=== PATIENT | female | born 1935 | race Caucasian/White ===

== ENCOUNTER → 2017-09-17 14:05 | Outpatient (CLI) | payer MEDICARE, SELFPAY ==
[2017-09-17 16:26] LABS: Albumin, Serum 3.6 g/dL (3.2-5.0); BUN 35 mg/dL (7-18); BUN/Creat Ratio 32.7 RATIO (10-20); Calcium,Total 9.1 mg/dL (8.5-10.1); Chloride 103 mmol/L (98-107); Creatinine, Serum 1.07 mg/dL (0.55-1.02); EST Glomerular Filtration Rate 52 mL/min (>60); Est Glom Filt Rate - Afr Amer 63 mL/min (>60); Glucose 89 mg/dL (74-106); Phosphorus 3.5 mg/dL (2.5-4.9); Potassium 4.3 mmol/L (3.5-5.1); Sodium Level 139 mmol/L (136-145)
[2017-09-17 16:52] LABS: Microalbumin,Random Urine 17.9 mg/L (NO RANGE EST.); Microalbumin:Creatinine Ratio 28.4 mg/g CRE (<30 mg/g CRE)
== END ==
PROVIDERS: Family Provider Family Medicine; PCP Family Medicine; Visit Provider Internal Medicine Nephrology
DX: E11.22 Type 2 diabetes mellitus with diabetic chronic kidney disease (principal); N18.3 Chronic kidney disease, stage 3 (moderate)
CPT/HCPCS: 36415; 80069; 82043; 82570

== ENCOUNTER → 2017-11-17 12:48 | Outpatient (CLI) | payer MEDICARE, SELFPAY | PROVIDERS: Family Provider Family Medicine; PCP Family Medicine; Visit Provider Family Medicine | DX: R42 Dizziness and giddiness (principal) | CPT/HCPCS: 93225; 93226 ==

== ENCOUNTER → 2018-01-09 15:48 | Outpatient (CLI) | payer MEDICARE, SELFPAY ==
[2018-01-09 17:57] LABS: Anion Gap 6 (5-15); BUN 32 mg/dL (7-18); BUN/Creat Ratio 30.2 RATIO (10-20); Calcium,Total 9.1 mg/dL (8.5-10.1); Chloride 106 mmol/L (98-107); Creatinine, Serum 1.06 mg/dL (0.55-1.02); EST Glomerular Filtration Rate 53 mL/min (>60); Est Glom Filt Rate - Afr Amer 64 mL/min (>60); Glucose 134 mg/dL (74-106); Potassium 4.2 mmol/L (3.5-5.1); Sodium Level 143 mmol/L (136-145)
== END ==
PROVIDERS: Family Provider Family Medicine; PCP Family Medicine; Referring Provider Internal Medicine Cardiovascular Disease; Visit Provider Internal Medicine Cardiovascular Disease
DX: I45.5 Other specified heart block (principal); N18.3 Chronic kidney disease, stage 3 (moderate); E03.9 Hypothyroidism, unspecified
CPT/HCPCS: 36415; 80048; 84443

== ENCOUNTER → 2018-01-27 09:38 | Outpatient (CLI) | payer MEDICARE, SELFPAY ==
--- NOTE | 2018-01-27 09:40 | ECHOD_ITS ---
Reason For Study: ARRYTHMIA Procedure This was a 2D Doppler, Color Flow transthoracic echocardiogram. Patient unable to lay on side or flat. Exam performed with patient in Fowlers position. The study was technically difficult. Exam performed in department. Left Ventricle Normal LV size. Mild concentric left ventricular hypertrophy. Left ventricular systolic function is normal. The estimated ejection fraction is 60 %. Transmitral diastolic flow velocities suggest moderate (stage 2) diastolic dysfunction (pseudonormal pattern). No regional wall motion abnormalities noted. Right Ventricle Normal RV size. Normal systolic function. Atria The left atrium is mildly enlarged. Normal right atrium. No doppler evidence for ASD. Mitral Valve There is moderate to severe mitral annular calcification. Extension of the mitral annular calcification onto the posterior mitral valve leaflet. The mitral valve chordae are thickened and/or calcified. The mitral papillary muscle appears thickened and/or calcified. Mild (1+) mitral valve insufficiency. Tricuspid Valve Normal tricuspid valve. Trivial tricuspid valve insufficiency. Right ventricular systolic pressure estimated to be 37 mmHg. Aortic Valve Trisinus/trileaflet aortic valve. Mild focal aortic valve calcification. Pulmonic Valve The pulmonic valve is not well visualized. Trivial pulmonic valve insufficiency. Great Vessels Normal sized aortic root. Calcified aortic root. Pericardium/Pleural No pericardial effusion. MMode/2D Measurements & Calculations LVIDd: 4.5 cm IVSd: 1.3 cm LVOT diam: 2.0 cm LVIDs: 3.3 cm LVPWd: 1.4 cm LVOT area: 3.2 cm2 FS: 28.2 % Ao root diam: 3.0 cm LAV(MOD-bp): 76.5 ml LVAd ap4: 28.4 cm2 LA dimension: 3.3 cm LAV(MOD-bp) Indexed: 40.4 ml/m2 EDV(MOD-sp4): 92.1 ml LAV(MOD-sp2): 57.1 ml EDV(sp4-el): 95.0 ml LAV(MOD-sp4): 82.7 ml LVAs ap4: 15.5 cm2 ESV(MOD-sp4): 33.9 ml ESV(sp4-el): 34.7 ml EF(MOD-sp4): 63.2 % EF(sp4-el): 63.5 % SV(MOD-sp4): 58.2 ml SV(sp4-el): 60.3 ml LA A4 area: 28.5 cm2 RA A4 area: 16.3 cm2 Time Measurements MV dec time: 0.38 sec Doppler Measurements & Calculations MV E max danyel: 150.5 cm/sec Lat Peak E' Danyel: 8.1 cm/sec Med Peak E' Danyel: 5.4 cm/sec MV A max danyel: 136.0 cm/sec E/E' lat: 18.5 E/E' med: 28.1 MV E/A: 1.1 MV V2 max: 134.8 cm/sec MV P1/2t max danyel: 150.2 cm/sec Ao V2 max: 161.5 cm/sec MV max P.3 mmHg MV P1/2t: 112.1 msec Ao max P.4 mmHg MV V2 mean: 96.3 cm/sec MV dec slope: 392.6 cm/sec2 DEAN(V,D): 2.0 cm2 MV mean P.0 mmHg MVA(P1/2t): 2.0 cm2 MV V2 VTI: 44.5 cm LV V1 max: 101.3 cm/sec PA V2 max: 81.3 cm/sec TR max danyel: 292.3 cm/sec LV V1 max P.1 mmHg TR max P.2 mmHg Interpretation Summary The study was technically difficult. Left ventricular systolic function is normal. The estimated ejection fraction is 60 %. Mild concentric left ventricular hypertrophy. The left atrium is mildly enlarged. There is moderate to severe mitral annular calcification. Extension of the mitral annular calcification onto the posterior mitral valve leaflet. The mitral valve chordae are thickened and/or calcified. The mitral papillary muscle appears thickened and/or calcified. Mild (1+) mitral valve insufficiency. Trivial tricuspid valve insufficiency. Mild focal aortic valve calcification. Trivial pulmonic valve insufficiency. Calcified aortic root. Right ventricular systolic pressure estimated to be 37 mmHg. Transmitral diastolic flow velocities suggest diastolic dysfunction (pseudonormal pattern). Ordering Physician: Shad Rae Referring Physician: RYLEE COTTO MD Performed By: Velma Kaba RDCS
== END ==
PROVIDERS: Family Provider Family Medicine; PCP Family Medicine; Referring Provider Internal Medicine Cardiovascular Disease; Visit Provider Internal Medicine Cardiovascular Disease
DX: I45.5 Other specified heart block (principal); I49.1 Atrial premature depolarization; I49.3 Ventricular premature depolarization
CPT/HCPCS: 93225; 93226; 93306

== ENCOUNTER → 2018-02-10 05:56 | Outpatient (CLI) | payer MEDICARE, SELFPAY | PROVIDERS: Family Provider Family Medicine; PCP Family Medicine; Referring Provider Internal Medicine Cardiovascular Disease | DX: I49.3 Ventricular premature depolarization (principal); I49.1 Atrial premature depolarization; I44.0 Atrioventricular block, first degree | CPT/HCPCS: A4216; J2785 ==

== ENCOUNTER → 2018-03-27 09:40 | Outpatient (CLI) | payer MEDICARE, SELFPAY ==
[2018-03-27 11:38] LABS: Albumin, Serum 3.3 g/dL (3.2-5.0); BUN 20 mg/dL (7-18); BUN/Creat Ratio 22.3 RATIO (10-20); Calcium,Total 9.1 mg/dL (8.5-10.1); Chloride 107 mmol/L (98-107); EST Glomerular Filtration Rate 64 mL/min (>60); Est Glom Filt Rate - Afr Amer 77 mL/min (>60); Glucose 153 mg/dL (74-106); Potassium 4.1 mmol/L (3.5-5.1); Sodium Level 144 mmol/L (136-145)
== END ==
PROVIDERS: Family Provider Family Medicine; PCP Family Medicine; Referring Provider Internal Medicine Nephrology; Visit Provider Internal Medicine Nephrology
DX: N17.0 Acute kidney failure with tubular necrosis (principal)
CPT/HCPCS: 36415; 80069

== ENCOUNTER → 2018-05-11 10:59 | Outpatient (CLI) | payer MEDICARE, SELFPAY | PROVIDERS: Family Provider Family Medicine; PCP Family Medicine; Referring Provider Internal Medicine Cardiovascular Disease; Visit Provider Internal Medicine Cardiovascular Disease | DX: I49.3 Ventricular premature depolarization (principal); I49.1 Atrial premature depolarization; I45.5 Other specified heart block | CPT/HCPCS: 93225; 93226 ==

== ENCOUNTER → 2018-11-07 | Outpatient (CLI) | payer MEDICARE, SELFPAY ==
[2018-05-25 14:59] VITALS: BMI 36.6
[2018-11-07 10:57] LABS: Hematocrit 33.1 % (37-47); Hemoglobin 11.1 g/dL (12.0-15.0); Mean Corp Hgb Conc 33.5 g/dL (32-36); Mean Corpuscular Volume 92.5 fL (81-99); Mean Platelet Vol. 10.1 fl (6.2-12.0); Platelet Count 227 K/mm3 (150-450); RBC Distribution Width CV 12.8 % (11.6-14.6); RBC Distribution Width SD 43.8 fl (35.1-43.9); Red Blood Count 3.58 M/mm3 (4.2-5.4); White Blood Count 6.1 K/mm3 (4.4-11.0)
[2018-11-07 11:06] LABS: Protein, Urine (Random) 20.8 mg/dL (<11.9); Protein:Creat Ratio 596 mg/g CRE (0-200)
[2018-11-07 11:24] LABS: Albumin, Serum 3.5 g/dL (3.2-5.0); BUN 22 mg/dL (7-18); BUN/Creat Ratio 23.4 RATIO (10-20); Chloride 104 mmol/L (98-107); Creatinine, Serum 0.94 mg/dL (0.55-1.02); EST Glomerular Filtration Rate 60 mL/min (>60); Est Glom Filt Rate - Afr Amer 73 mL/min (>60); Glucose 181 mg/dL (74-106); Phosphorus 3.6 mg/dL (2.5-4.9); Potassium 4.3 mmol/L (3.5-5.1); Sodium Level 142 mmol/L (136-145)
== END | disposition home or self-care (01) ==
LOC: LAB 09:51
PROVIDERS: Family Provider Family Medicine; PCP Family Medicine; Referring Provider Internal Medicine Nephrology; Visit Provider Internal Medicine Nephrology
DX: E11.22 Type 2 diabetes mellitus with diabetic chronic kidney disease (principal); N18.3 Chronic kidney disease, stage 3 (moderate)
CPT/HCPCS: 36415; 80069; 82570; 84156; 85027

== ENCOUNTER 2018-12-11 11:36 | Emergency (ER) | payer MEDICARE, SELFPAY ==
[2018-12-01 08:59] VITALS: BMI 35.6
[2018-12-11 11:41] VITALS: BP 153/61; PULSE 73; RESP 22; TEMP 36.4; O2SAT 100; BMI 36.8
--- NOTE | 2018-12-11 11:59 | RAD_ITS ---
STUDY: X-RAY CHEST REASON FOR EXAM: Female, 83 years old. Shortness of breath. TECHNIQUE: Single AP portable view of the chest. COMPARISON: Comparison is made with prior study dated October 17, 2016. FINDINGS: EKG electrodes are seen. The lungs are clear and expanded. There is no demonstrated pleural abnormality. There is mild cardiac enlargement. Normal mediastinum and vijaya. Normal visualized pulmonary arteries. There is atherosclerotic calcification of the aortic arch with tortuosity. There are diffuse degenerative changes of the visualized thoracic spine. There is degenerative osteoarthritis of the bilateral shoulders. There is no demonstrated abnormality of the visualized soft tissue structures of the upper abdomen. RAD/Chest 1 View (Portable) IMPRESSION: Mild cardiomegaly. Electronically Signed: Timbo Chapman, at 12:23 EDT , Service support ,
--- NOTE | 2018-12-11 11:59 | EKG12_ITS ---
Test Reason : SOB Blood Pressure : / mmHG Vent. Rate : 072 BPM Atrial Rate : 072 BPM P-R Int : 194 ms QRS Dur : 104 ms QT Int : 436 ms P-R-T Axes : 087 -45 053 degrees QTc Int : 477 ms Normal sinus rhythm Left anterior fascicular block Voltage criteria for left ventricular hypertrophy Abnormal ECG Confirmed by JOSEPH SCHMITT ([id number]), development editor NASIR NUGENT ([id number]) on 12/14/2018 2:28:16 PM Referred By: ELIZABETH Confirmed By:JOSEPH SCHMITT
[2018-12-11 12:21] VITALS: RESP 16; O2SAT 100
--- NOTE | 2018-12-11 12:27 | RAD_ITS ---
STUDY: X-RAY CHEST REASON FOR EXAM: Female, 83 years old. Shortness of breath. TECHNIQUE: Single AP portable view of the chest. COMPARISON: Comparison is made with prior examination dated December 11, 2018. FINDINGS: EKG electrodes are seen. The lungs are clear and expanded. There is no demonstrated pleural abnormality. There is borderline cardiomegaly. Normal mediastinum and vijaya. Normal visualized pulmonary arteries. There is atherosclerotic calcification of the aortic arch with tortuosity. There are diffuse degenerative changes of the visualized thoracic spine. There is degenerative osteoarthritis of the bilateral shoulders. Calcific tendinitis of the left shoulder. There is no demonstrated abnormality of the visualized soft tissue structures of the upper abdomen. RAD/Chest 1 View (Portable) IMPRESSION: Borderline cardiomegaly. No acute abnormality is seen. Electronically Signed: Timbo Chapman, at 13:22 EDT , Service support ,
[2018-12-11 13:08] LABS: Absolute Lymphocyte Count 0.81 X10^3/uL (0.83-4.51); Absolute Neutrophil Count 4.8 X10^3/uL (2.0-7.7); Basophil# 0.05 X10^3/uL; Basophil% 0.8 % (0-1); Eosinophil# 0.06 X10^3/uL; Hematocrit 31.9 % (37-47); Hemoglobin 10.4 g/dL (12.0-15.0); Lymphocyte # 0.81 X10^3/ul (4.0); Lymphocyte % 13.2 % (19-41); Mean Corp Hgb Conc 32.6 g/dL (32-36); Mean Corpuscular Hgb 30.3 pg (27.0-32.0); Mean Platelet Vol. 10.5 fl (6.2-12.0); Monocyte# 0.41 X10^3/uL; Monocyte% 6.7 % (0-10); NRBC Flagged by Analyzer 0 % (0-5); Neutrophil # 4.77 X10^3/uL (2.7-7.7); Platelet Count 240 K/mm3 (150-450); RBC Distribution Width CV 13.1 % (11.6-14.6); RBC Distribution Width SD 44.5 fl (35.1-43.9); Red Blood Count 3.43 M/mm3 (4.2-5.4); White Blood Count 6.1 K/mm3 (4.4-11.0)
[2018-12-11 13:31] VITALS: O2SAT 98
[2018-12-11 13:33] LABS: Anion Gap 4 (5-15); BUN 18 mg/dL (7-18); BUN/Creat Ratio 13.6 RATIO (10-20); Calcium,Total 9.1 mg/dL (8.5-10.1); Chloride 101 mmol/L (98-107); Creatinine, Serum 1.32 mg/dL (0.55-1.02); EST Glomerular Filtration Rate 41 mL/min (>60); Est Glom Filt Rate - Afr Amer 49 mL/min (>60); Estimated Creatinine Clearance 25.09 ml/min; Glucose 240 mg/dL (74-106); Potassium 4.3 mmol/L (3.5-5.1); Sodium Level 137 mmol/L (136-145)
--- NOTE | 2018-12-11 13:56 | ED.DCSUM_ITS ---
- ER Visit Summary Date of Service: 12/11/18 Chief Complaint: [Shortness of breath] History of Present Illness: The patient is a 83 F [resents to the emergency department complaint of shortness of breath that started around 11 AM. Patient states that she was sitting when she became very nauseated. Patient states that her family member called her and she was having a hard time breathing. She denies any chest pain. Denies any cough. Patient did have episodes of diarrhea yesterday and dry heaves. She denies any abdominal pain. She denies any fevers. She denies urinary symptoms. Patient states she feels improved on arrival to the emergency department. Patient does have a history of CHF, diabet es, hypertension, hypothyroidism, and chronic kidney disease.] Physical Examination: [HEENT-PERRLA, EOMI. Cranial nerves II through XII grossly intact. TMs clear. Mucous membranes moist. No adenopathy. Cardiovascular-regular rate and rhythm without murmur or ectopy Lungs-clear to auscultation, chest wall stable without crepitus or subcu emphysema Abdomen-normoactive bowel sounds, soft, nontender, no rebound or rigidity, no peritoneal signs. Extremities-intact ?4, normal range of motion, normal pulses, atraumatic] Test Results: [EKG obtained arrival showed a sinus rhythm with a ventricular rate of 72 bpm with some LVH. CBC with differential showed a white count of 6.1, hemoglobin 10, hematocrit 32, platelets 240. Chemistries unremarkable. Glucose was 240. Troponin is less than 0.015. Chest x-ray showed some mild cardiomegaly otherwise nothing acute.] Emergency Department Course and Treatment: [Receive Zofran 4 mill grams IV.] Treatment Plan: [Patient will be given a prescription for Zofran. I suspect patient likely has a viral type syndrome. Patient's dyspnea is mostly resolved at this point.] Disposition: Discharged home stable condition [] Impression: [Dyspnea-etiology uncertain Viral syndrome] This note was generated with [employer] dictation software. It may contain incorrect words, spelling, and punctuation that were not noted in review of the chart prior to signing ED Disposition - Plan for ED Patient: Referrals: Garret Henson MD [Primary Care Provider] -
--- NOTE | 2018-12-11 13:58 | ED.DEP ---
ED Disposition - Plan for ED Patient: Instructions: ED Dyspnea, GASTROENTERITIS, Viral (5y-Adult) Prescriptions: Ondansetron [Zofran Odt] 4 mg PO Q8H PRN PRN #10 tab PRN Reason: Nausea Prescription Printed Referrals: Garret Henson MD [Primary Care Provider] - 3-5 Days
[2018-12-11] MEDS: Ondansetron 4 MG/2 ML Vial IV (14:28)
[2018-12-11 14:31] VITALS: BP 159/57; PULSE 76; RESP 16; O2SAT 99
== END 2018-12-11 14:40 | disposition home or self-care (01) ==
PROVIDERS: Emergency Provider Emergency Medicine; Family Provider Family Medicine; PCP Family Medicine
DX: B34.9 Viral infection, unspecified (principal); R06.00 Dyspnea, unspecified; R11.0 Nausea; R19.7 Diarrhea, unspecified; E11.22 Type 2 diabetes mellitus with diabetic chronic kidney disease; I13.0 Hypertensive heart and chronic kidney disease with heart failure and stage 1 through stage 4 chronic kidney disease, or unspecified chronic kidney disease; N18.9 Chronic kidney disease, unspecified; I50.9 Heart failure, unspecified; E03.9 Hypothyroidism, unspecified; Z79.82 Long term (current) use of aspirin; Z79.4 Long term (current) use of insulin; Z79.899 Other long term (current) drug therapy
CPT/HCPCS: 71045; 80048; 84484; 85025; 93005; 94760; 96374; 99285; A4216; J2405

== ENCOUNTER 2019-01-04 16:11 | Emergency (ER) | payer MEDICARE, SELFPAY ==
[2019-01-04] VITALS (9 sets, daily range): BP systolic 134–190; BP diastolic 76–121; PULSE 70–89; RESP 16–22; TEMP 36.1; O2SAT 94–99; BMI 35.6
[2019-01-04] MEDS: Metoclopramide 10 MG/2 ML Vial 2.5 MG IV (17:34)
[2019-01-04] MEDS: Propofol 200 MG/20 ML Vial 40 MG IV BOLUS (17:42)
[2019-01-04] MEDS: Propofol 200 MG/20 ML Vial 30 MG IV BOLUS (17:44)
--- NOTE | 2019-01-04 17:51 | RAD_ITS ---
STUDY: X-RAY - RIGHT SHOULDER REASON FOR EXAM: Female, 83 years old. Deformity TECHNIQUE: 1 view(s) of the shoulder. COMPARISON: X-ray chest December 11, 2018 FINDINGS: There is anterior dislocation of the shoulder. No displaced fractures are present. Moderate degenerative changes are present at the acromioclavicular joint. RAD/Shoulder One View IMPRESSION: Anterior dislocation of the humeral head. No displaced fracture. Electronically Signed: Abdoulaye Sandoval, at 18:22 EDT Tel , Service support ,
--- NOTE | 2019-01-04 18:00 | RAD_ITS ---
STUDY: X-RAY - RIGHT SHOULDER REASON FOR EXAM: Female, 83 years old. Post reduction attempt TECHNIQUE: 2 view(s) of the shoulder. COMPARISON: X-ray right shoulder earlier the same day. X-ray chest December 11, 2018. FINDINGS: Position of the humeral head appears improved relative to the glenoid although subacromial space appears increased, although similar interim comparison to chest x-ray from December 11. There is no displaced fracture. Soft tissues are within normal limits. RAD/Shoulder min 2 Views IMPRESSION: Improved position of the humeral head relative to the glenoid, although subacromial space appears increased although similar to comparison chest x-ray from December 11. Consider possible joint laxity. Electronically Signed: Abdoulaye Sandoval, at 18:21 EDT Tel , Service support ,
--- NOTE | 2019-01-04 18:26 | ED.DCSUM_ITS ---
- ER Visit Summary Date of Service: 01/04/19 Chief Complaint: Shoulder dislocation History of Present Illness: The patient is a 83 F who presents for a shoulder dislocation. She had outside films that showed an anterior dislocation without fracture. The patient says she fell about a week ago. She has chronic right shoulder pain, so she thought that she just exacerbated her chronic pain, but her pain was getting worse. X-rays were done today. She denies any neurologic symptoms. Denies any other injuries or complaints. Physical Examination: Deformity to right shoulder and tender to palpation. Neurovascularly intact. Otherwise exam unremarkable. Test Results: See below Emergency Department Course and Treatment: I reviewed the patient's outside results. Discussed the patient with Dr. Hartmann. He advised attempting closed reduction. Patient gave consent for sedation and closed reduction. The first attempt was unsuccessful. The second attempt was successful based on confirmatory x-rays. Patient was placed in a sling. She will follow-up as an outpatient with Dr. Hartmann. Treatment Plan: As above Disposition: Discharge Impression: 1. Right shoulder dislocation This note was generated with [employer] dictation software. It may contain incorrect words, spelling, and punctuation that were not noted in review of the chart prior to signing ED Disposition - Plan for ED Patient: Referrals: Garret Henson MD [Primary Care Provider] -
--- NOTE | 2019-01-04 18:30 | DCINST.ED_ITS ---
ED Disposition - Plan for ED Patient: Instructions: DISLOCATION: SHOULDER (Reduced) Prescriptions: Hydrocodone Bitart/Apap 5-325 [[place] 5MG-325MG] 1 tab PO Q6H PRN PRN 3 Days #10 tab PRN Reason: Pain Prescription Printed Referrals: Chris Hartmann MD [STAFF PHYSICIAN] -
== END 2019-01-04 18:45 | disposition home or self-care (01) ==
LOC: ED 18:41
PROVIDERS: Emergency Provider Emergency Medicine; Family Provider Family Medicine; PCP Family Medicine
DX: S43.014A Anterior dislocation of right humerus, initial encounter (principal); M25.511 Pain in right shoulder; G89.29 Other chronic pain; W19.XXXA Unspecified fall, initial encounter; Y93.9 Activity, unspecified; Y92.9 Unspecified place or not applicable; E11.22 Type 2 diabetes mellitus with diabetic chronic kidney disease; I13.0 Hypertensive heart and chronic kidney disease with heart failure and stage 1 through stage 4 chronic kidney disease, or unspecified chronic kidney disease; N18.9 Chronic kidney disease, unspecified; I50.9 Heart failure, unspecified; E03.9 Hypothyroidism, unspecified; Z79.82 Long term (current) use of aspirin; Z79.4 Long term (current) use of insulin; Z79.899 Other long term (current) drug therapy
CPT/HCPCS: 23650; 73020; 73030; 96374; 99156; 99157; 99285; J7030; A4216

== ENCOUNTER → 2019-05-05 14:23 | Outpatient (CLI) | payer MEDICARE, SELFPAY ==
[2019-01-04 16:13] VITALS: BMI 35.6
== END ==
LOC: LAB.FUTURE 14:26 → LAB 14:37
PROVIDERS: PCP Family Medicine; Referring Provider Internal Medicine Nephrology; Visit Provider Internal Medicine Nephrology
DX: R30.9 Painful micturition, unspecified (principal)
CPT/HCPCS: 87086; 87088

== ENCOUNTER → 2019-11-10 08:10 | Outpatient (CLI) | payer MEDICARE, SELFPAY ==
[2019-05-26 15:09] VITALS: BMI 35.6
[2019-11-10 09:37] LABS: Protein, Urine (Random) 10.7 mg/dL (<11.9); Protein:Creat Ratio 196 mg/g CRE (0-200)
[2019-11-10 09:51] LABS: Albumin, Serum 3.7 g/dL (3.2-5.0); BUN 33 mg/dL (7-18); BUN/Creat Ratio 26.8 RATIO (10-20); Calcium,Total 9.2 mg/dL (8.5-10.1); Chloride 102 mmol/L (98-107); Creatinine, Serum 1.23 mg/dL (0.55-1.02); EST Glomerular Filtration Rate 44 mL/min (>60); Est Glom Filt Rate - Afr Amer 53 mL/min (>60); Glucose 157 mg/dL (74-106); Phosphorus 3.4 mg/dL (2.5-4.9); Potassium 4.4 mmol/L (3.5-5.1); Sodium Level 137 mmol/L (136-145)
== END ==
PROVIDERS: PCP Family Medicine; Referring Provider Internal Medicine Nephrology; Visit Provider Internal Medicine Nephrology
DX: E11.22 Type 2 diabetes mellitus with diabetic chronic kidney disease (principal); N18.3 Chronic kidney disease, stage 3 (moderate)
CPT/HCPCS: 36415; 80069; 82570; 84156

== ENCOUNTER 2019-11-30 12:45 | Emergency (ER) | payer MEDICARE, SELFPAY ==
[2019-11-11 13:26] VITALS: BMI 35.6
[2019-11-30 12:46] VITALS: BP 163/80; PULSE 79; RESP 18; TEMP 36.5; O2SAT 99; BMI 34.4
--- NOTE | 2019-11-30 13:09 | VDLE_ITS ---
Reason For Study: pain Procedure LEFT Exam performed portable in ED. GSV is normal. The exam was abbreviated due to the COVID 19 CFV is compressible, spontaneous, phasic, protocol. competent, and demonstrates normal The exam was diagnostic. augmentation. A preliminary report was called and/or faxed FV is compressible, spontaneous, phasic, to Dr. León. competent and demonstrates normal augmentation. POP V is compressible, spontaneous, phasic, competent and demonstrates normal augmentation. T/P Trunk is compressible. PTV is compressible. LT PerV is compressible. Interpretation Summary There is no evidence of left lower extremity deep vein thrombosis. Left great saphenous vein appears patent and compressible segmentally. Abbreviated Covid-19 protocol Ordering Physician: George León Performed By: Uziel Miller RVT
--- NOTE | 2019-11-30 13:09 | ED.VIS.GEN ---
History of Present Illness Chief Complaint: Edema Narrative: 84-year-old female presenting with left lateral calf pain. She states this started on Friday. There is no acute injury that she knows of. She denies history of DVT/PE. She states that she put Biofreeze on it and the pain got better. Her home health care nurse thought it looked a little bit red and to the area. The redness has resolved. Patient has no paresthesias. No bony tenderness. No systemic signs such as fever, chills, nausea, vomiting. - Past Medical History (1) First degree AV block Status: Chronic (2) Premature supraventricular beats Status: Chronic (3) Chronic renal disease, stage 3, moderately decreased glomerular filtration rate (GFR) between 30-59 mL/min/1.73 square meter Status: Chronic (4) Diastolic CHF, chronic Status: Chronic (5) Essential hypertension Status: Chronic (6) Hypothyroidism Status: Chronic Past Medical History - Allergies and Home Meds Allergies/Adverse Reactions: Allergies shellfish derived Allergy (Severe, Verified 11/30/19 12:50) Anaphylaxis hydrochlorothiazide [From Prinzide] Allergy (Verified 11/30/19 12:50) Unknown Iodinated Contrast Media [Iodinated Contrast Media - IV Dye] Allergy (Verified 11/30/19 12:50) Anaphylaxis lisinopril [From Prinzide] Allergy (Verified 11/30/19 12:50) Unknown neomycin [Neomycin] Allergy (Verified 11/30/19 12:50) Unknown Primary Care Physician: Garret Henson MD [Primary Care Provider] - Past Medical History: - - Reviewed in problem list Surgical History: appendectomy, cholecystectomy Lives: With Family Smoking Status: Never smoker Alcohol: None Drugs: None - Family History Maternal Family History: Family History (Last Reviewed 11/11/19 @ 14:55 by SONJA Hagen) Father CVA (cerebral vascular accident) Myocardial infarction Heart disease Mother Cancer Brother Pacemaker Family History: Reports: - Review of Systems General: Denies: Chills, Fever, Sweats Eyes: Denies: Visual changes - bilaterally, Diplopia ENT: Denies: Rhinorrhea, Sore throat Cardiovascular: Denies: Chest pain, Palpitations Respiratory: Denies: Dyspnea, Cough, Dyspnea on exertion Gastrointestinal: Reports: Abdominal pain Genitourinary: Denies: Dysuria, Hematuria, Frequency Musculoskeletal: Reports: - - Left lateral calf pain Skin: Reports: - - Resolved area of redness on the left lower extremity Neurological: Denies: Headache, Weakness Physical Exam Vital Signs/Narrative: Vital Signs Temp Pulse Resp BP Pulse Ox 11/30/19 12:46 97.7 F L 79 18 163/80 H 99 Inital Vital Signs reviewed: Yes General: Well nourished, No Acute Distress Head: Normocephalic, Atraumatic Eyes: Perrl ENT: Moist mucous membranes, No rhinorrhea Cardiovascular: Regular rate, Regular rhythm Respiratory: No distress, CTA bilaterally. Negative for: Wheezing, Diminished, Decreased Air Movement Extremities: - - Tenderness to palpation over the left lateral calf. There is no erythema, ecchymosis, abrasions. There is no bony tenderness on the tibia or fibula. 2+ pedal pulses. There is edema bilaterally on the lower extremities. Skin: Normal color, No rash Neurological: Alert, Oriented x3 Psychological: Normal affect Diagnostic/Tx/Re-eval - Medical Decision Making Patient presents with concern for DVT given her pain in her lower calf as well as edema. She does have a history of heart failure but is not having any shortness of breath, chest pain, fever, cough. I did do a DVT study of her left lower extremity which is negative for DVT. I counseled her and her daughter that she should stay in the compression stockings and follow-up with her PCP to ensure resolution. She was amenable to this plan she stable discharge at this time. Impression: 1. Left calf strain ED Disposition - Plan for ED Patient: Disposition: Home or Assisted Living Instructions: ED Peripheral Edema, Unilateral Referrals: Garret Henson MD [Primary Care Provider] -
== END 2019-11-30 14:11 | disposition home or self-care (01) ==
LOC: ED 13:49
PROVIDERS: Emergency Provider Student in an Organized Health Care Education/Training Program; PCP Family Medicine
DX: S86.112A Strain of other muscle(s) and tendon(s) of posterior muscle group at lower leg level, left leg, initial encounter (principal); X58.XXXA Exposure to other specified factors, initial encounter; Y93.9 Activity, unspecified; Y92.9 Unspecified place or not applicable; I13.0 Hypertensive heart and chronic kidney disease with heart failure and stage 1 through stage 4 chronic kidney disease, or unspecified chronic kidney disease; N18.3 Chronic kidney disease, stage 3 (moderate); I50.32 Chronic diastolic (congestive) heart failure; E03.9 Hypothyroidism, unspecified; I44.0 Atrioventricular block, first degree; Z79.82 Long term (current) use of aspirin; Z79.899 Other long term (current) drug therapy; R60.0 Localized edema
CPT/HCPCS: 93971; 99282

== ENCOUNTER → 2019-12-20 09:06 | Outpatient (CLI) | payer MEDICARE, SELFPAY ==
[2019-11-30 12:46] VITALS: BMI 34.4
[2019-12-20 10:52] LABS: Protein, Urine (Random) 13.1 mg/dL (<11.9); Protein:Creat Ratio 370 mg/g CRE (0-200)
[2019-12-20 10:53] LABS: Albumin, Serum 3.7 g/dL (3.2-5.0); BUN 22 mg/dL (7-18); Calcium,Total 9.4 mg/dL (8.5-10.1); Chloride 101 mmol/L (98-107); EST Glomerular Filtration Rate 50 mL/min (>60); Est Glom Filt Rate - Afr Amer 61 mL/min (>60); Glucose 156 mg/dL (74-106); Phosphorus 3.6 mg/dL (2.5-4.9); Potassium 4.1 mmol/L (3.5-5.1); Sodium Level 137 mmol/L (136-145)
== END ==
PROVIDERS: PCP Family Medicine; Referring Provider Internal Medicine Nephrology; Visit Provider Internal Medicine Nephrology
DX: E11.22 Type 2 diabetes mellitus with diabetic chronic kidney disease (principal); N18.3 Chronic kidney disease, stage 3 (moderate); N17.0 Acute kidney failure with tubular necrosis
CPT/HCPCS: 36415; 80069; 82570; 84156

== ENCOUNTER 2019-12-25 09:24 | Emergency (ER) | payer MEDICARE, SELFPAY ==
[2019-12-25 09:26] VITALS: BP 180/86; PULSE 88; RESP 199; TEMP 37; O2SAT 91; BMI 36.6
--- NOTE | 2019-12-25 09:36 | ED.DCSUM_ITS ---
History of Present Illness Chief Complaint: Nausea/Vomiting Informant: Patient Narrative: 84-year-old female presents with her daughter for evaluation of nausea/vomiting. Patient states that she has been having trouble with her bowels. She vomited once yesterday and then again this morning. She did take nausea medicine which did help a little bit. She is not had a fever or cough. In route after vomiting she did states she had some pressure in her chest. This is since resolved. - Past Medical History (1) Chronic renal disease, stage 3, moderately decreased glomerular filtration rate (GFR) between 30-59 mL/min/1.73 square meter Status: Chronic (2) Diastolic CHF, chronic Status: Chronic (3) Essential hypertension Status: Chronic (4) First degree AV block Status: Chronic (5) Hypothyroidism Status: Chronic Past Medical History - Allergies and Home Meds Allergies/Adverse Reactions: Allergies shellfish derived Allergy (Severe, Verified 12/25/19 09:26) Anaphylaxis hydrochlorothiazide [From Prinzide] Allergy (Verified 12/25/19 09:26) Unknown Iodinated Contrast Media [Iodinated Contrast Media - IV Dye] Allergy (Verified 12/25/19 09:26) Anaphylaxis lisinopril [From Prinzide] Allergy (Verified 12/25/19 09:26) Unknown neomycin [Neomycin] Allergy (Verified 12/25/19 09:26) Unknown Primary Care Physician: Garret Henson MD [Primary Care Provider] - Past Medical History: - - Reviewed and problem list Surgical History: appendectomy, cholecystectomy Lives: With Family Smoking Status: Never smoker Alcohol: None Drugs: None - Family History Maternal Family History: Family History (Last Reviewed 11/11/19 @ 14:55 by Candida CASILLAS, [place]) Father CVA (cerebral vascular accident) Myocardial infarction Heart disease Mother Cancer Brother Pacemaker Family History: Reports: - Review of Systems General: Denies: Chills, Fever, Sweats Eyes: Denies: Visual changes - bilaterally, Diplopia ENT: Denies: Rhinorrhea, Sore throat Cardiovascular: Reports: Chest pain Respiratory: Denies: Dyspnea, Cough, Dyspnea on exertion Gastrointestinal: Reports: Abdominal pain, Nausea, Vomiting. Denies: Diarrhea, Constipation Genitourinary: Denies: Dysuria, Hematuria Musculoskeletal: Denies: Myalgias, Arthralgias Skin: Denies: Rash, Abscess Neurological: Denies: Headache, Weakness Physical Exam Vital Signs/Narrative: Vital Signs Temp Pulse Resp BP Pulse Ox 12/25/19 09:26 98.6 F 88 199 H 180/86 H 91 Inital Vital Signs reviewed: Yes General: Obese, No Acute Distress Head: Normocephalic, Atraumatic Eyes: Perrl, EOMI ENT: Moist mucous membranes, No rhinorrhea Cardiovascular: Regular rate, Regular rhythm Respiratory: No distress, CTA bilaterally Abdomen: Soft, Tender - Generalized tenderness to palpation. There appears to be a palpable hernia in the right lower quadrant. Extremities: Nontender, No edema Skin: Normal color, No rash Neurological: Alert, Oriented x3 Psychological: Normal affect, Normal Mood Diagnostic/Tx/Re-eval Clinical Impression(s) from Imaging Studies Chest X-Ray 12/25/19 09:46 IMPRESSION: Poor inspiration with some bibasilar atelectasis. Electronically Signed: Charles Carmona MD at 10:19 EDT Tel , Service support , Abdomen/Pelvis CT 12/25/19 10:32 IMPRESSION: No acute abnormality. Suspect constipation. Electronically Signed: Charles Carmona MD at 12:37 EDT Tel , Service support , Laboratory Data 12/25/19 12/25/19 12/25/19 09:35 09:35 11:55 WBC 6.2 RBC 3.66 L Hgb 11.4 L Hct 35.3 L MCV 96.4 MCH 31.1 MCHC 32.3 RDW Std Deviation 45.8 H RDW Coeff of Skye 12.9 Plt Count 245 MPV 9.7 Immature Gran % (Auto) 0.300 Neut % (Auto) 71.2 H Lymph % (Auto) 16.1 L [place] % (Auto) 6.9 Eos % (Auto) 5.0 Baso % (Auto) 0.5 Absolute Neuts (auto) 4.4 Absolute Lymphs (auto) 1.00 Nucleated RBC % 0 Sodium 138 Potassium 4.4 Chloride 102 Carbon Dioxide 32.0 Anion Gap 4 L BUN 20 H Creatinine 1.06 H Estim Creat Clear Calc 30.69 Est GFR (MDRD) Af Amer 63 Est GFR (MDRD) Non-Af 52 L BUN/Creatinine Ratio 18.9 Glucose 176 H Calcium 9.1 Total Bilirubin 0.60 Direct Bilirubin 0.14 AST 24 ALT 21 Alkaline Phosphatase 114 Troponin I < 0.015 Total Protein 7.3 Albumin 3.8 Globulin 3.5 Albumin/Globulin Ratio 1.1 Urine Color Yellow Urine Clarity Clear Urine pH 7.0 Ur Specific [place] 1.005 Urine Protein Negative Urine Glucose (UA) Normal Urine Ketones Negative Urine Occult Blood Negative Urine Nitrite Negative Urine Bilirubin Negative Urine Urobilinogen Normal Ur Leukocyte Esterase 100 H Urine RBC 0 SEEN Urine WBC 0-5 SEEN Ur Squamous Epith Cells 0-5 SEEN Urine Bacteria RARE Urine Mucus 0 SEEN - Rhythm Strip Rhythm Strip: Sinus Rhythm Rate: 85 - Medical Decision Making 84-year-old female presenting with nausea and vomiting for the last 2 days. Prior to arrival she had some pressure in her chest however this was due to her vomiting. On arrival she was given Zofran. Her vital signs are stable and she is afebrile. Patient's chest x-ray is negative. Blood work is fairly unremarkable. Urinalysis appears to be consistent with UTI. I spoke with the patient's daughter who stated that she had been urinating a lot and that usually a sign she is getting a urinary tract infection. During this in addition to the nausea and vomiting I will treat the UTI. It is sent for culture. Patient is given first dose of Keflex in the ED. She is given a prescription for Zofran and Keflex for home. Impression: 1. Nausea/vomiting 2. UTI ED Disposition - Plan for ED Patient: Disposition: Home or Assisted Living Instructions: Understanding Urinary Tract Infections (UTIs), ED Nausea Vomiting Adult Prescriptions: Cephalexin [Keflex] 500 mg PO Q12 #14 cap Transmission Status: Received by [facility] Cephalexin [Keflex] 500 mg PO Q12 #14 cap Transmission Status: Received by [facility] Ondansetron [Zofran Odt] 4 mg PO Q8H PRN PRN #14 tab PRN Reason: Nausea Transmission Status: Received by [facility] Ondansetron [Zofran Odt] 4 mg PO Q8H PRN PRN #14 tab PRN Reason: Nausea Transmission Status: Received by [facility] Referrals: Garret Henson MD [Primary Care Provider] -
--- NOTE | 2019-12-25 09:46 | EKG12_ITS ---
Test Reason : CHEST PRESSURE Blood Pressure : / mmHG Vent. Rate : 085 BPM Atrial Rate : 085 BPM P-R Int : 190 ms QRS Dur : 100 ms QT Int : 384 ms P-R-T Axes : 072 -54 082 degrees QTc Int : 456 ms Normal sinus rhythm Left anterior fascicular block Left ventricular hypertrophy with repolarization abnormality Abnormal ECG Confirmed by LOUIS COLMENARES, MELISSA ([id number]), movie editor SARAH LORENZANA ([id number]) on 12/28/2019 4:10:58 PM Referred By: LUZ Confirmed By:MELISSA MEYRS MD
--- NOTE | 2019-12-25 09:46 | RAD_ITS ---
STUDY: X-RAY CHEST REASON FOR EXAM: Female, 84 years old. CHEST PRESSURE TECHNIQUE: Single AP portable view of the chest. COMPARISON: 12/11/2018 FINDINGS: Poor inspiration with some bibasilar atelectasis. There is no demonstrated pleural abnormality. There is moderate cardiac enlargement. Normal mediastinum and vijaya. Normal visualized pulmonary arteries. Normal visualized aortic arch and descending thoracic aorta. Normal visualized thoracic spine. Multiple healed right rib fractures. There is no demonstrated abnormality of the visualized soft tissue structures of the upper abdomen. RAD/Chest 1 View (Portable) IMPRESSION: Poor inspiration with some bibasilar atelectasis. Electronically Signed: Charles Carmona MD at 10:19 EDT Tel , Service support ,
[2019-12-25 10:00] LABS: Absolute Neutrophil Count 4.4 X10^3/uL (2.0-7.7); Basophil# 0.03 X10^3/uL; Basophil% 0.5 % (0-1); Eosinophil# 0.31 X10^3/uL; Hematocrit 35.3 % (37-47); Hemoglobin 11.4 g/dL (12.0-15.0); Lymphocyte % 16.1 % (19-41); Mean Corp Hgb Conc 32.3 g/dL (32-36); Mean Corpuscular Hgb 31.1 pg (27.0-32.0); Mean Corpuscular Volume 96.4 fL (81-99); Mean Platelet Vol. 9.7 fl (6.2-12.0); Monocyte# 0.43 X10^3/uL; Monocyte% 6.9 % (0-10); NRBC Flagged by Analyzer 0 % (0-5); Neutrophil # 4.43 X10^3/uL (2.7-7.7); Neutrophil % 71.2 % (47-70); Platelet Count 245 K/mm3 (150-450); RBC Distribution Width CV 12.9 % (11.6-14.6); RBC Distribution Width SD 45.8 fl (35.1-43.9); Red Blood Count 3.66 M/mm3 (4.2-5.4); White Blood Count 6.2 K/mm3 (4.4-11.0)
[2019-12-25 10:19] LABS: ALB/GLOB Ratio 1.1 RATIO (0.9-2.4); AST(SGOT) 24 U/L (15-37); Alanine Aminotransfer ALT/SGPT 21 U/L (13-56); Albumin, Serum 3.8 g/dL (3.2-5.0); Alkaline Phosphatase 114 U/L (45-117); Anion Gap 4 (5-15); BUN 20 mg/dL (7-18); BUN/Creat Ratio 18.9 RATIO (10-20); Bilirubin, Direct 0.14 mg/dL (0.00-0.30); Calcium,Total 9.1 mg/dL (8.5-10.1); Chloride 102 mmol/L (98-107); Creatinine, Serum 1.06 mg/dL (0.55-1.02); EST Glomerular Filtration Rate 52 mL/min (>60); Est Glom Filt Rate - Afr Amer 63 mL/min (>60); Estimated Creatinine Clearance 30.69 ml/min; Globulin 3.5 g/dL (2.2-4.2); Glucose 176 mg/dL (74-106); Potassium 4.4 mmol/L (3.5-5.1); Protein, Total 7.3 g/dL (6.4-8.2); Sodium Level 138 mmol/L (136-145)
[2019-12-25] MEDS: Ondansetron 4 MG/2 ML Vial IV (10:26)
--- NOTE | 2019-12-25 10:32 | CT_ITS ---
STUDY: CT ABDOMEN AND PELVIS WITHOUT CONTRAST REASON FOR EXAM: Female, 84 years old. N/V FOR DAYS, LUMBAR FUSION, APPENDECTOMY, CHOLECYSTECTOMY RADIATION DOSAGE (If Supplied By Facility): CTDIvol = ( 21.87 ) mGy, DLP = ( 1231.53 ) mGycm TECHNIQUE: Transaxial images were obtained from the dome of the diaphragm to the symphysis pubis without oral contrast, and without intravenous contrast. Sagittal and coronal images were reconstructed. Individualized dose optimization techniques were used for this CT. COMPARISON: 02/04/2016 FINDINGS: The visualized lung bases are unremarkable. The visualized portions of the heart are within normal limits. Normal liver. There are surgical clips in the gallbladder fossa consistent with a prior cholecystectomy. Normal spleen. There is diffuse atrophy of the pancreas. Normal bilateral adrenal glands. Normal right kidney. Normal left kidney. Normal visualized stomach. Normal small intestine. Large amount of stool throughout the colon suggestive of constipation. There is non-visualization of the appendix. Normal abdominal aorta. Normal inferior vena cava. Normal retroperitoneum. Normal urinary bladder. Normal abdominal wall. Status post transpedicular fixation in the lower lumbar spine. CT/Abdomen/Pelvis without Cont IMPRESSION: No acute abnormality. Suspect constipation. Electronically Signed: Charles Carmona MD at 12:37 EDT Tel , Service support ,
[2019-12-25 12:01] LABS: Mucous, Urine 0 SEEN /hpf (<or=2+); Red Blood Cells-Urine 0 SEEN /hpf (0-5)
[2019-12-25 12:05] LABS: Color, Urine Yellow (Yellow); Glucose, Dipstick Normal (Normal); Ketone-Dipstick Negative (Negative); Leukocyte Esterase-Dipstick 100 /ul (Negative); Nitrite-Dipstick Negative (Negative); Occult Blood-Urine Negative /ul (Negative); Protein-Dipstick Negative (Negative); Specific Gravity, Urine 1.005 (1.002-1.030); Urine Bilirubin Dipstick Negative (Negative); Urine Clarity Clear (Clear); Urine Urobilinogen Normal (Normal)
[2019-12-25 12:23] LABS: Bacteria RARE /hpf (None Seen); Squamous Epithelial Cells - UA 0-5 SEEN /hpf (5-10); White Blood Cells 0-5 SEEN /hpf (0-5)
[2019-12-25 12:50] VITALS: BP 164/95; PULSE 77; RESP 14; O2SAT 97
[2019-12-25] MEDS: Metoclopramide 10 MG/2 ML Vial IV (13:44)
[2019-12-25] MEDS: Cephalexin 250 MG Capsule 500 MG PO (13:45)
[2019-12-25 14:12] VITALS: BP 161/57; PULSE 85; RESP 15; O2SAT 98
== END 2019-12-25 14:15 | disposition home or self-care (01) ==
PROVIDERS: Emergency Provider Student in an Organized Health Care Education/Training Program; PCP Family Medicine
DX: R11.2 Nausea with vomiting, unspecified (principal); N39.0 Urinary tract infection, site not specified; I13.0 Hypertensive heart and chronic kidney disease with heart failure and stage 1 through stage 4 chronic kidney disease, or unspecified chronic kidney disease; N18.3 Chronic kidney disease, stage 3 (moderate); I50.32 Chronic diastolic (congestive) heart failure; E03.9 Hypothyroidism, unspecified; I44.0 Atrioventricular block, first degree; Z79.4 Long term (current) use of insulin; Z79.82 Long term (current) use of aspirin; Z79.899 Other long term (current) drug therapy
CPT/HCPCS: 71045; 74176; 80053; 80076; 81001; 84484; 85025; 93005; 96374; 96375; 99285; A4216; J2405

== ENCOUNTER → 2019-12-30 15:13 | Outpatient (CLI) | payer MEDICARE, SELFPAY ==
[2019-12-25 09:26] VITALS: BMI 36.6
[2019-12-30 16:36] LABS: Anion Gap 4 (5-15); BUN 14 mg/dL (7-18); BUN/Creat Ratio 14.7 RATIO (10-20); Calcium,Total 9.3 mg/dL (8.5-10.1); Chloride 102 mmol/L (98-107); Creatinine, Serum 0.95 mg/dL (0.55-1.02); EST Glomerular Filtration Rate 59 mL/min (>60); Est Glom Filt Rate - Afr Amer 72 mL/min (>60); Glucose 137 mg/dL (74-106); Potassium 3.9 mmol/L (3.5-5.1); Sodium Level 138 mmol/L (136-145)
== END ==
PROVIDERS: PCP Family Medicine; Referring Provider Internal Medicine Nephrology; Visit Provider Internal Medicine Nephrology
DX: N17.0 Acute kidney failure with tubular necrosis (principal)
CPT/HCPCS: 36415; 80048

== ENCOUNTER 2020-04-23 11:11 | Emergency (ER) | payer MEDICARE, SELFPAY ==
[2020-04-23] VITALS (16 sets, daily range): BP systolic 124–231; BP diastolic 50–216; PULSE 18–89; RESP 13–22; TEMP 36.1; O2SAT 94–100; BMI 29.9
--- NOTE | 2020-04-23 11:33 | RAD_ITS ---
STUDY: X-RAY - RIGHT SHOULDER REASON FOR EXAM: Female, 85 years old. Pain and bruising to right shoulder -- h/o dislocation -- pt states NKI TECHNIQUE: History view(s) of the shoulder. COMPARISON: January 04, 2019 shoulder x-ray FINDINGS: And anterior dislocation of the right humeral head. There is irregularity of the humeral head suggesting possible partially visualized fracture. There is soft tissue edema. There is degenerative arthrosis of the acromioclavicular joint without inferior osseous spur formation. Normal acromion. The soft tissue structures are unremarkable. There is degenerative change in the thoracic spine. RAD/Shoulder min 2 Views IMPRESSION: Anterior Dislocation of the right shoulder. Cannot exclude nondisplaced fracture of the right femoral head. Electronically Signed: Lara Heller MD at 12:01 EST Tel , Service support ,
--- NOTE | 2020-04-23 11:34 | ED.VISSUMM ---
- ER Visit Summary Date of Service: 04/23/20 Chief Complaint: Right shoulder pain History of Present Illness: The patient is a 85 F who presents with right shoulder pain that began today. Patient states the pain is diffuse over the right shoulder. Patient states she has a history of prior dislocation that was difficult to reduce. Patient states she followed up with orthopedics who was able to reduce her shoulder and she was in a sling and swath for a few weeks. Patient states she has difficulty lifting her right arm since that dislocation. Patient does admit to some tingling down her right arm. Patient denies any weakness. Physical Examination: Vital signs are stable. Patient is afebrile. Patient is in no acute distress. Heart was regular rate and rhythm. Lungs are clear and equal bilaterally. Abdomen is soft. Bowel sounds are normal. There is no tenderness. Musculoskeletal exam reveals diffuse tenderness over the right shoulder. There is some edema and ecchymosis. There is no obvious deformity noted. Radial pulses are equal bilateral. Sensation was intact to light touch in the radial, median, ulnar, and axillary areas. Strength is 5/5 in the radial, median, and ulnar areas. Test Results: X-rays of the right shoulder were obtained. There are 2 views. On my interpretation, there is an anterior inferior dislocation. Radiologist also interpreted the x-rays and agrees. Post reduction x-ray of the right shoulder was obtained. There is 1 view. On my interpretation there is still a dislocation noted. Radiologist also interpreted the x-rays and agrees. Second post reduction x-ray was obtained. There is 1 view. On my interpretation, there is still an anterior inferior dislocation. Radiologist also interpreted the x-rays and agrees. Third post reduction x-ray was obtained. There are 3 views. On my interpretation, there is still an anterior inferior dislocation. Radiologist also interpreted the x-rays and agrees. Emergency Department Course and Treatment: Consent was obtained for conscious sedation. Patient had no further questions. Patient is agreeable with the process. Patient was sedated with propofol. Traction countertraction method was used to attempt reduction. There was a palpable clunk however, repeat x-rays did not show reduction of the dislocation. Patient was resedated with propofol. Traction countertraction method, scapular manipulation method, and rotation of the shoulder method was attempted without success. Case was discussed with Dr. Mathieu Cool. He was in to evaluate the patient. Patient was again resedated with propofol. He attempted to reduce the dislocation with multiple techniques with no success. Patient has seen orthopedic surgeon from [facility]. He recommended that the patient follow-up with the orthopedic surgeon from the [facility] since he does not operate on his shoulders and no one in his office operates on shoulders. Patient was given a dose of morphine. Patient was placed in a sling. Patient was given a prescription for Percocet. Patient was instructed to follow-up with the orthopedic surgeon at the [facility] in 2 to 3 days. Patient understood and was agreeable with the plan. All questions were answered. Disposition: Discharge home Impression: 1. Right shoulder dislocation This note was generated with [employer] dictation software. It may contain incorrect words, spelling, and punctuation that were not noted in review of the chart prior to signing ED Disposition - Plan for ED Patient: Disposition: Home or Assisted Living Diagnosis: Dislocation of right shoulder joint Instructions: ED Dislocation: Shoulder (Reduced) Prescriptions: Cephalexin [Keflex] 500 mg PO Q6 #40 cap Transmission Status: Pending to [facility] #30 Oxycodone HCl/Acetaminophen [Percocet 5/325] 1 tab PO Q6H PRN PRN 3 Days #12 tab PRN Reason: Pain Prescription Printed Referrals: Garret Henson MD [Primary Care Provider] - 5-7 Days Additional Instructions: Call your orthopedic surgeon from the [facility] and arrange for follow-up care in 2 to 3 days.
[2020-04-23] MEDS: Propofol 200 MG/20 ML Vial IV BOLUS ×3 (13:00→16:30)
--- NOTE | 2020-04-23 13:07 | ED.RN ---
Addendum entered by Fiona Jackson 04/23/20 13:22: ice pack to infiltrated site. Addendum entered by Fiona Jackson 04/23/20 13:09: iv was a #22 to left AC Original Note: started sedation at 1257 and noted IV infiltration. procedure stopped. new IV started.
--- NOTE | 2020-04-23 13:21 | RAD_ITS ---
STUDY: X-RAY - RIGHT SHOULDER REASON FOR EXAM: Female, 85 years old. 1st post reduction attempt TECHNIQUE: 1 view(s) of the shoulder. COMPARISON: April 23, 2020 11:45 AM FINDINGS: There is persistent anterior dislocation of the right femoral head and a fragmented appearance of the right humeral head. There is degenerative arthrosis of the acromioclavicular joint without inferior osseous spur formation. Normal acromion. There is bony osteopenia and a fractured appearance of the humeral head. The soft tissue structures are unremarkable. Normal visualized pulmonary apex. RAD/Shoulder One View IMPRESSION: Age-indeterminate focal fracture of the dislocated right humeral head. Electronically Signed: Lara Heller MD at 13:57 EST Tel , Service support ,
--- NOTE | 2020-04-23 14:12 | ED.RN ---
spoke with daughter, Julia for update that the physicians will be attempting a second time at reduction.
--- NOTE | 2020-04-23 14:45 | RAD_ITS ---
STUDY: X-RAY - RIGHT SHOULDER REASON FOR EXAM: Female, 85 years old. POST REDUCTION #2 TECHNIQUE: 2 view(s) of the shoulder. COMPARISON: Right shoulder x-ray April 23, 2020 FINDINGS: There is persistent anterior dislocation of the right shoulder. There is persistent focal fragmented appearance of the right humeral head. RAD/Shoulder One View IMPRESSION: Anterior dislocation of the right shoulder. Focal fracture fragment of the humeral head. Electronically Signed: Lara Heller MD at 15:12 EST Tel , Service support ,
--- NOTE | 2020-04-23 15:05 | ED.RN ---
SHASHI [phone]
--- NOTE | 2020-04-23 15:40 | RAD_ITS ---
STUDY: X-RAY - RIGHT SHOULDER REASON FOR EXAM: Female, 85 years old. post reduction TECHNIQUE: 3 view(s) of the shoulder. COMPARISON: 04/23/2016 FINDINGS: Persistent anterior and inferior dislocation of the right femoral head in relation to the glenoid fossa. There is degenerative arthrosis of the acromioclavicular joint without inferior osseous spur formation. Normal acromion. Mild sclerosis of the humeral head is stable. The soft tissue structures are unremarkable. Normal visualized pulmonary apex. RAD/Shoulder min 2 Views IMPRESSION: Persistent glenohumeral dislocation. Electronically Signed: Rodrigo Jin MD (Brooks) at 16:54 EST , Service support ,
--- NOTE | 2020-04-23 16:35 | PCM.CONS.GEN ---
Reason for Consult Date of Consultation: 04/23/20 History of Present Illness: The patient is a 85 year old female with multiple medical problems that reportedly was doing fine until Friday. Patient left to get her hair done. After that she complained of severe right shoulder pain. She has not been getting better. Due to persistent right shoulder pain she was brought to the emergency room. They deny any recent known injury. Patient denies numbness or tingling of the arm. She states she has dislocated the shoulder before. She was not considered a good surgical candidate reportedly. History was obtained from the patient, the ER physician, and the patient's daughter, Dulce Sher [] Past Medical History Past Medical History (Chronic Problems): Chronic Problems (Last Reviewed 11/11/19 @ 14:55 by Candida CASILLAS, PA) Premature supraventricular beats (Chronic) Premature atrial contractions (Chronic) Premature ventricular contraction (Chronic) Hypothyroidism (Chronic) Type 2 diabetes mellitus (Chronic) First degree AV block (Chronic) Essential hypertension (Chronic) Diastolic CHF, chronic (Chronic) Chronic renal disease, stage 3, moderately decreased glomerular filtration rate (GFR) between 30-59 mL/min/1.73 square meter (Chronic) Medical History: Medical History (Last Reviewed 11/11/19 @ 14:55 by Candida CASILLAS, PA) Ventricular ectopy (Acute) I49.3 Premature supraventricular beats (Chronic) I49.1 Premature atrial contractions (Chronic) I49.1 Premature ventricular contraction (Chronic) I49.3 Hypothyroidism (Chronic) E03.9 Type 2 diabetes mellitus (Chronic) E11.9 First degree AV block (Chronic) I44.0 Essential hypertension (Chronic) I10 Diastolic CHF, chronic (Chronic) I50.32 Chronic renal disease, stage 3, moderately decreased glomerular filtration rate (GFR) between 30-59 mL/min/1.73 square meter (Chronic) Colitis (Acute) GERD (gastroesophageal reflux disease) K21.9 History of GI bleed Z87.19 Depression F32.9 Gout M10.9 Acute GI bleeding (Inactive) K92.2 Depressed (Inactive) F32.9 Diabetes mellitus (Inactive) GERD (Inactive) Gout (Inactive) M10.9 Hypertension (Inactive) Hypothyroidism (Inactive) Allergies shellfish derived Allergy (Severe, Verified 04/23/20 11:28) Anaphylaxis hydrochlorothiazide [From Prinzide] Allergy (Verified 04/23/20 11:28) Unknown Iodinated Contrast Media [Iodinated Contrast Media - IV Dye] Allergy (Verified 04/23/20 11:28) Anaphylaxis lisinopril [From Prinzide] Allergy (Verified 04/23/20 11:28) Unknown neomycin [Neomycin] Allergy (Verified 04/23/20 11:28) Unknown Home Medications: Ambulatory Orders Medication Instructions Recorded Allopurinol [Zyloprim] 100 mg PO DAILYCM 12/04/13 Aspirin [Aspirin, Baby] 81 mg PO BID 12/04/13 Folic Acid 1 mg PO BIDCM 12/04/13 Meclizine HCl [Antivert] 12.5 mg PO BID PRN PRN 12/04/13 Furosemide [Lasix] 40 mg PO DAILY #30 tab 12/08/13 Biotin 5,000 mcg PO DAILY 03/10/16 Montelukast [Singulair] 10 mg PO QHS 03/10/16 Sucralfate 1 gm PO BID 03/10/16 Docusate Sodium [Colace] 100 mg PO BID 03/15/16 Multivit-Min/Iron/Folic/Lutein 1 ea PO DAILY 10/17/16 [Centrum Silver Women Tablet] cholecalciferol (vitamin D3) 1,250 50,000 unit PO QMONTH cap 05/25/18 mcg (50,000 unit) capsule insulin aspart U-100 100 unit/mL 4 unit SUBCUT 0700,1200,1700 ml 05/25/18 (3 mL) subcutaneous pen losartan 25 mg tablet 25 mg PO DAILY 05/25/18 insulin glargine 100 unit/mL (3 6 unit SUBCUT QHS ml 05/26/19 mL) subcutaneous pen oxycodone-acetaminophen 10 mg-325 1 tab PO Q8H tab 05/26/19 mg tablet Cephalexin [Keflex] 500 mg PO Q12 #14 cap 12/25/19 Cephalexin [Keflex] 500 mg PO Q12 #14 cap 12/25/19 Levothyroxine [Synthroid] 112 mcg PO DAILY 12/25/19 Ondansetron [Zofran Odt] 4 mg PO Q8H PRN PRN #14 tab 12/25/19 Ondansetron [Zofran Odt] 4 mg PO Q8H PRN PRN #14 tab 12/25/19 Pedi Mv No.79/Ferrous Fumarate 18 mg PO DAILY 12/25/19 [Flintstones with Iron Tab Chew] Surgical History: Surgical History (Last Reviewed 11/11/19 @ 14:55 by Candida CASILLAS, PA) History of appendectomy Z90.49 History of back surgery Z98.890 History of cholecystectomy Z90.49 History of tonsillectomy Z90.89 Surgical History: appendectomy, cholecystectomy Smoking Status: Never smoker - *Family History Maternal Family History: Family History (Last Reviewed 11/11/19 @ 14:55 by Candida CASILLAS, PA) Father CVA (cerebral vascular accident) Myocardial infarction Heart disease Mother Cancer Brother Pacemaker History Items: - Objective: Right shoulder has deformity. Right shoulder has swelling. She can gently move the wrist and fingers normally. Radial pulses intact. Sensation is intact. Capillary refill is normal. No incisions noted about the right shoulder. No pain or deformity at the left shoulder. X-rays reviewed with the ER physician AP and scapular Y view showing what appears to be an anterior-inferior glenohumeral dislocation with possible greater tuberosity fracture. - Physical Exam Vitals/I&O's: Vital Signs Temp Pulse Resp BP Pulse Ox 97 F L 81 13 173/69 H 97 04/23/20 11:11 04/23/20 15:54 04/23/20 15:54 04/23/20 15:54 04/23/20 15:54 Oxygen Flow Rate (L/min) [3] 2 Oxygen Flow Rate (L/min) [2] 2 Oxygen Flow Rate (L/min) [1 ( 2 Initial Baseline)] Oxygen Flow Rate (L/min) 2 Oxygen Delivery Method [3] Nasal Cannula Oxygen Delivery Method [2] Nasal Cannula Oxygen Delivery Method [1 ( Nasal Cannula Initial Baseline)] Oxygen Delivery Method Nasal Cannula Weight: 81.647 kg Body Mass Index (BMI) 29.9 Finger Stick Blood Glucose 227 Assessment/Plan All Active Problems (Last Reviewed 11/11/19 @ 14:55 by Candida CASILLAS, PA) Ventricular ectopy (Acute) Colitis (Acute) Acute renal failure (Resolved) Case was discussed with the ER physician. Case was discussed with the patient. Patient was given the option to undergo further closed reduction techniques in the ER. She did wish to do so. She understands the risk of damage to nerves arteries tendons risk of bone injury risk of persistent shoulder dislocation and/or recurrent instability. Risk of permanent weakness from rotator cuff damage which was probably pre-existing discussed. No guarantees were stated or implied. Procedure: After obtaining appropriate consent patient was given conscious sedation by the ER physician. We tried traction countertraction with sheets under her right axilla, another one about her right elbow which was flexed to 90 degrees. We tried traction with abduction, abduction, internal and external rotation. That did not seem successful. We tried several other reduction techniques including bringing her arm overhead with traction and rotation. Also abducting the shoulder with gentle traction and manipulation. ER physician had tried scapular manipulation. Multiple attempts were done. X-rays were taken as well. Axillary view was also taken. Further sedation and reduction techniques did not seem any more successful. This was discussed with her daughter at phone number [phone]. I explained we were not successful reducing her shoulder. I explained she could be transferred to [facility] emergency room for further evaluation and treatment. She declined. She prefers her to be placed in an arm sling and brought home. She will have 24-hour care. They are going to call Friday to try to make an appointment with a shoulder specialist at the [facility]. Patient does have underlying medical comorbidities. She may not be a surgical candidate. They understand and agree. Approximately 60 minutes was spent combined time with discussing the case with the ER physician, patient evaluation, chart review, attempted closed reductions and review of x-rays, discussion with her daughter and appropriate documentation. Of this 60 minutes approximately 20 minutes were spent with the manipulation procedures
[2020-04-23] MEDS: Morphine 4 MG/ML Syringe IV (17:00)
== END 2020-04-23 17:28 | disposition home or self-care (01) ==
PROVIDERS: Emergency Provider Emergency Medicine; PCP Family Medicine
DX: S43.014A Anterior dislocation of right humerus, initial encounter (principal); X58.XXXA Exposure to other specified factors, initial encounter; Y93.9 Activity, unspecified; Y92.9 Unspecified place or not applicable; E03.9 Hypothyroidism, unspecified; I13.0 Hypertensive heart and chronic kidney disease with heart failure and stage 1 through stage 4 chronic kidney disease, or unspecified chronic kidney disease; E11.22 Type 2 diabetes mellitus with diabetic chronic kidney disease; I50.32 Chronic diastolic (congestive) heart failure; N18.30 Chronic kidney disease, stage 3 unspecified; M10.9 Gout, unspecified; K21.9 Gastro-esophageal reflux disease without esophagitis; I25.10 Atherosclerotic heart disease of native coronary artery without angina pectoris; I44.0 Atrioventricular block, first degree; F32.9 Major depressive disorder, single episode, unspecified; Z87.19 Personal history of other diseases of the digestive system; Z79.4 Long term (current) use of insulin; Z79.82 Long term (current) use of aspirin; Z79.899 Other long term (current) drug therapy
CPT/HCPCS: 23650; 73020; 73030; 99156; 99157; 99285; J7030; A4216

== ENCOUNTER 2021-07-04 16:16 | Observation (INO) | payer MEDICARE, SELFPAY ==
[2021-07-04 16:18] VITALS: BP 178/64; PULSE 96; RESP 18; TEMP 36.6; O2SAT 96; BMI 34.7
--- NOTE | 2021-07-04 16:43 | CT_ITS ---
STUDY: CT CHEST WITHOUT CONTRAST REASON FOR EXAM: Female, 86 years old. injury RADIATION DOSAGE (If Supplied By Facility): CTDIvol = ( 18.92 ) mGy, DLP = ( 685.51 ) mGycm TECHNIQUE: Transaxial imaging was performed without the administration of intravenous contrast material. Individualized dose optimization techniques were used for this CT. COMPARISON: None. FINDINGS: The lungs are normal. There is no demonstrated pleural abnormality. Normal heart and pericardium. There are calcifications of the coronary arteries. Normal mediastinum. Normal hilar regions. Normal unenhanced pulmonary arteries. Normal aorta arch and descending thoracic aorta. There is an increased kyphosis of the thoracic spine. Destruction of the right humeral head with a large joint effusion. There is no demonstrated abnormality of the visualized upper abdomen. CT/Chest without Contrast IMPRESSION: Destruction of the right humeral head with a large joint effusion. Septic arthritis should be excluded. Electronically Signed: Charles Carmona MD at 17:54 EDT ,
--- NOTE | 2021-07-04 16:44 | EX.ED.UPPERE ---
HPI History of Present Illness Chief Complaint: Upper Extremity Injury Detail of Chief Complaint: Right shoulder injury/pain Informant: patient Narrative Narrative: Patient presents to the ER with complaint of pain in the right shoulder and right chest wall. Patient states that she was on the toilet and her foot slipped so she tried to catch herself with her right arm and injured her arm and chest. Daughter states that she noticed some bruising over a week ago to the right chest wall and some swelling to the area. Patient denied any falls at that time. Patient is right-hand dominant. Patient also states she had a dislocated shoulder a year ago that they could not reduce or do anything with. [facility] Medical History (Updated 07/04/21 @ 19:[address] Allyson Phillip, ) Acute GI bleeding Chronic renal disease, stage 3, moderately decreased glomerular filtration rate (GFR) between 30-59 mL/min/1.73 square meter Colitis Depressed Depression Diabetes mellitus Diastolic CHF, chronic Essential hypertension First degree AV block GERD GERD (gastroesophageal reflux disease) Gout Gout History of GI bleed Hypertension Hypothyroidism Hypothyroidism Premature atrial contractions Premature supraventricular beats Premature ventricular contraction Type 2 diabetes mellitus Ventricular ectopy Home Medications allopurinol 100 mg PO DAILYCM 12/04/13 [History Last Taken 04/25/16 04:00 100 MG] aspirin 81 mg PO BID 12/04/13 [History Last Taken 03/10/16 11:00 81 MG] folic acid 1 mg PO BIDCM 12/04/13 [History Last Taken 03/10/16 11:00 1 MG] meclizine 12.5 mg PO BID PRN PRN 12/04/13 [History Last Taken 05/24/15 25 MG] furosemide 40 mg PO DAILY #30 tab 12/08/13 [Rx Last Taken 03/09/16 10:00] biotin 5,000 mcg PO DAILY 03/10/16 [History Last Taken 03/09/16 17:30] montelukast 10 mg PO QHS 03/10/16 [History Last Taken 03/09/16 22:00] docusate sodium 100 mg PO BID 03/15/16 [History Last Taken Unknown] ninxobih-eqf-vkjs-FA-lutein 1 ea PO DAILY 10/17/16 [History Last Taken Unknown] cholecalciferol (vitamin D3) 1,250 mcg (50,000 unit) capsule 50,000 unit PO QMONTH cap 05/25/18 [History Last Taken Unknown] insulin aspart U-100 100 unit/mL (3 mL) subcutaneous pen 4 unit SUBCUT 0700,1200,1700 ml 05/25/18 [History Last Taken Unknown] losartan 25 mg tablet 25 mg PO DAILY 05/25/18 [History Last Taken Unknown] insulin glargine 100 unit/mL (3 mL) subcutaneous pen 6 unit SUBCUT QHS ml 05/26/19 [History Last Taken Unknown] oxycodone-acetaminophen 10 mg-325 mg tablet 1 tab PO Q8H tab 05/26/19 [History Last Taken Unknown] levothyroxine 100 mcg PO DAILY 12/25/19 [History Last Taken Unknown] cimetidine 800 mg PO DAILY 07/04/21 [History Last Taken Unknown] Allergy/AdvReac Type Severity Reaction Status Date / Time shellfish derived Allergy Severe Anaphylaxis Verified 07/04/21 16:21 hydrochlorothiazide Allergy Unknown Verified 07/04/21 16:21 [From Prinzide] Iodinated Contrast Media Allergy Anaphylaxis Verified 07/04/21 16:21 [Iodinated Contrast Media - IV Dye] lisinopril [From Prinzide] Allergy Unknown Verified 07/04/21 16:21 neomycin [Neomycin] Allergy Unknown Verified 07/04/21 16:21 Family History Father CVA (cerebral vascular accident) Myocardial infarction Heart disease Mother Cancer Brother Pacemaker Surgical History History of appendectomy History of back surgery History of cholecystectomy History of tonsillectomy Social History Smoking Status: Never smoker alcohol intake: never caffeine: Yes Type: coffee Number of servings: 4 ROS ROS ED Constitutional Constitutional ED: Reports systems reviewed and no addt'l complaints, except as documented; Denies body ache(s), change in weight or chills Eyes Eyes: Denies acute decrease in peripheral vision, change in vision, double vision or loss of vision ENT ENT ED: Reports none; Denies ear pain, lip swelling, loss taste/smell, neck pain, otalgia or sore throat Cardiovascular Cardiovascular: Reports none and chest pain; Denies abdominal pain, chest pain with activity, leg edema, lightheadedness, palpitations, rapid heart rate or syncope Respiratory/Chest Respiratory/Chest: Reports none; Denies change in mental status, dry cough, dyspnea, hemoptysis, shortness of breath at rest or shortness of breath with exertion Gastrointestinal Gastrointestinal: Reports none; Denies abdominal pain, change in stool character, diarrhea, hematemesis, hematochezia, melena, rectal bleeding or vomiting Genitourinary Genitourinary ED: Reports none; Denies abdominal discomfort, anuria, dysuria, genital pain or polyuria Musculoskeletal Musculoskeletal: Reports none and other Details: Right arm pain ; Denies arthralgias, back pain, difficulty walking, extremity pain, muscle weakness or myalgias Integumentary Reports none; Denies abscess or rash Neurologic Neurologic: Reports none; Denies abnormal gait, confusion, focal weakness, frequent falls, headache(s), loss of vision, numbness, paresthesias, radicular pain, vertigo or weakness Psychiatric Psychiatric: Reports systems reviewed and no addt'l complaints, except as documented and none; Denies behavioral changes, confusion, difficulty concentrating, hallucinations, suicidal ideation, tactile hallucinations or visual hallucinations Endocrine Endocrinology: Denies none, cold intolerance, excessive sweating, fatigue or heat intolerance Hematologic/Lymphatic Hematologic/Lymphatic: Reports none; Denies anemia, easy bleeding or easy bruising Allergic/Immunologic Allergic/Immunologic ED: Denies as per HPI, none, lip swelling, mouth swelling, throat swelling, tongue swelling or hives EXAM Physical Exam Const Vital Signs: 07/04/21 16:18 Temperature 97.8 F Temperature Source Oral Pulse Rate 96 Respiratory Rate 18 Blood Pressure 178/64 H Blood Pressure Mean 102 Pulse Ox 96 Oxygen Delivery Method Room Air Positive well nourished and well developed General Appearance ED: well developed and NAD HEENT Reports TM's clear and moist mucous membranes normocephalic and atraumatic; Negative for trauma or tenderness Tympanic Membrane ED: Yes TM's clear Eyes PERRL and EOMs intact bilaterally General Eye ED: Negative for pale conjunctiva or scleral icterus Neck no lymphadenopathy, supple and no JVD General: Negative for tenderness Chest Wall palpation of chest normal Chest Narrative: Evaluation of the chest wall does reveal old ecchymosis and bruising in the right axilla and onto the right breast. There are some soft tissue swelling and fullness to the right upper chest wall slightly tender to palpation. Chest: Negative for tenderness Resp normal respiratory effort and clear to auscultation bilaterally Effort and Inspection: Negative for respiratory distress or pain with movement Auscultation: Negative for rhonchi, wheezes or diminished lung sounds Cardio regular rate, regular rhythm, S1 normal heart sound, S2 normal heart sound and no murmurs Peripheral Pulses: pulses 2+ throughout GI normal to inspection, nondistended, normoactive bowel sounds, soft to palpation, non-tender, non-distended and no masses Back/Spine no CVA tenderness and no thoracic nor lumbar tenderness Extremity Extremity Narrative: Patient with some mild tenderness palpation into the right axilla and proximal humerus. No obvious deformity or sulcus sign noted. She is neurovascular intact distally. General Extremety ED: Negative for edema General Extremity: Negative for edema Neuro oriented x3, CN's II-XII intact bilaterally, no sensory deficits noted and gait normal Sensorium / Orientation: awake, alert, oriented to person, oriented to place and oriented to time Motor Exam: strength 5/5 throughout and strength abnormal Psych mental status grossly normal Skin no rashes or lesions noted and no wounds MDM MDM MDM Narrative Medical decision making narrative: IV line established. Patient was given fentanyl 25 mcg for pain. X-ray of the right arm showed a chronically dislocated right glenohumeral joint with destruction of the humeral head. The humeral head had similar appearance as it did in April 2020. Patient had a CT scan of the chest obtained that was read by radiology as a fluid correction around the humeral head and recommended ruling out septic joint. Clinically I do not feel the patient has a septic joint. She has ecchymosis and bruising to the chest wall and really did not have any pain in the arm until the injury today. She has had no fever and a normal white count. The ecchymosis actually started over a week ago and I suspect she likely has a hematoma here that would explain the ecchymosis down onto the breast. Case was discussed with hospitalist to evaluate patient for admission as patient continues to have significant pain. I was asked to speak with orthopedics carton folder Dr. Mathieu Cool. I did speak with orthopedics and he recommended that if there was concern for a septic joint to attempt to aspirate the fluid collection however I do not feel patient has a septic joint. Otherwise it was recommended patient get a sling and outpatient follow-up from his standpoint as he would not do anything surgical at this point for this injury. Lab Data Attestation: I reviewed the patient's lab results. Discharge Plan Triage Chief Complaint: Upper Extremity Injury ED Provider: Allyson Phillip Dx/Rx/DC Orders Clinical Impression: Intractable heel pain, Chest wall hematoma, Chest wall muscle strain Prescriptions: No Action cholecalciferol (vitamin D3) 50,000 unit capsule 50,000 unit PO QMONTH RF: 0 losartan 25 mg tablet 25 mg PO DAILY RF: 0 allopurinol 100 MG tablet 100 mg PO DAILYCM RF: 0 meclizine 25 MG tablet 12.5 mg PO BID PRN PRN (Reason: Dizziness) RF: 0 aspirin 81 MG tablet,chewable 81 mg PO BID RF: 0 folic acid 1 MG tablet 1 mg PO BIDCM RF: 0 furosemide 40 MG tablet 40 mg PO DAILY Qty: 30 RF: 0 insulin aspart U-100 100 unit/mL insulin pen 4 unit subcut 0700,1200,1700 RF: 0 insulin glargine 100 unit/mL (3 mL) insulin pen 6 unit subcut QHS RF: 0 biotin 10,000 MCG capsule 5,000 mcg PO DAILY RF: 0 montelukast 10 MG tablet 10 mg PO QHS RF: 0 gtaxpoeb-pef-nhna-FA-lutein 1 EACH tablet 1 ea PO DAILY RF: 0 oxycodone-acetaminophen 10-325 mg tablet 1 tab PO Q8H RF: 0 levothyroxine 112 MCG tablet 100 mcg PO DAILY RF: 0 cimetidine 400 mg Tablet 800 mg PO DAILY RF: 0 docusate sodium 100 MG capsule 100 mg PO BID RF: 0 Primary Care Provider: Garret Henson Referrals: Garret Henson MD [Primary Care Provider] - Disposition Disposition: Acute Care Hospital [facility]
[2021-07-04] MEDS: Ondansetron 4 MG/2 ML Vial IV (16:58)
[2021-07-04] MEDS: fentaNYL 100 MCG/2 ML Ampul 25 MCG IV ×2 (16:58→18:27)
[2021-07-04 17:10] LABS: Hematocrit 34.8 % (37-47); Hemoglobin 11.6 g/dL (12.0-15.0); Mean Corp Hgb Conc 33.3 g/dL (32-36); Mean Corpuscular Hgb 31.1 pg (27.0-32.0); Mean Corpuscular Volume 93.3 fL (81-99); Mean Platelet Vol. 9.9 fl (6.2-12.0); Platelet Count 250 K/mm3 (150-450); RBC Distribution Width CV 13.6 % (11.6-14.6); RBC Distribution Width SD 46.4 fl (35.1-43.9); Red Blood Count 3.73 M/mm3 (4.2-5.4); White Blood Count 7.1 K/mm3 (4.4-11.0)
--- NOTE | 2021-07-04 17:15 | RAD_ITS ---
STUDY: X-RAY - RIGHT SHOULDER REASON FOR EXAM: Female, 86 years old. injury TECHNIQUE: 2 view(s) of the shoulder. COMPARISON: 04/23/2020 FINDINGS: Anterior dislocation glenohumeral joint. Normal acromioclavicular joint. Normal acromion. Normal humeral head and visualized proximal humerus. The soft tissue structures are unremarkable. Normal visualized pulmonary apex. RAD/Shoulder min 2 Views IMPRESSION: Anterior dislocation of the glenohumeral joint. Electronically Signed: Charles Carmona MD at 17:29 EDT ,
[2021-07-04 17:21] LABS: Anion Gap 5 (5-15); BUN 42 mg/dL (7-18); BUN/Creat Ratio 34.1 RATIO (10-20); Calcium,Total 9.2 mg/dL (8.5-10.1); Chloride 100 mmol/L (98-107); Creatinine, Serum 1.23 mg/dL (0.55-1.02); EST Glomerular Filtration Rate 44 mL/min (>60); Est Glom Filt Rate - Afr Amer 53 mL/min (>60); Estimated Creatinine Clearance 25.49 ml/min; Glucose 222 mg/dL (74-106); Potassium 4.4 mmol/L (3.5-5.1); Sodium Level 135 mmol/L (136-145)
[2021-07-04 19:01] VITALS: BP 177/54; PULSE 78; RESP 15; TEMP 36.6; O2SAT 98
--- NOTE | 2021-07-04 19:23 | PCM.HP.STD ---
HPI - General HPI Narrative NORMA PATEL, is a 86 F who presents to the hospital after a fall at home. She does have a history of a chronically dislocated right shoulder. This was evaluated by a year ago in April and she was transferred to [facility] who at that time said that they did not recommend surgery given her age and functionality. Because of her difficulty with sitting and standing she generally sleeps in a lift chair and she has a boosted seat on her toilet. Apparently today her foot slipped and she caught herself with her right hand/arm and this led to significant immediate pain in her shoulder and in her anterior chest near her shoulder. According to the daughter it also appears that she may have fallen about a week ago because she did have bruising on her right breast which appears much better according to the daughter. She does have a mass on her right anterior chest which the daughter says is new since the fall and on CT scan does look like hematoma, there does appear to be hematoma in the shoulder joint as well. She is afebrile without a leukocytosis and does not appear to have any warmth or redness currently on her shoulder or on this anterior chest hematoma. Medicine was asked to admit for pain management and PT/OT evaluation [facility] Medical History (Updated 07/04/21 @ 19:21 by Loli Wesley) Acute GI bleeding Chronic renal disease, stage 3, moderately decreased glomerular filtration rate (GFR) between 30-59 mL/min/1.73 square meter Colitis Colitis Congestive heart failure (CHF) Depressed Depression Diabetes Diabetes mellitus Diastolic CHF, chronic Essential hypertension First degree AV block GERD GERD (gastroesophageal reflux disease) GI bleed Gout Gout History of GI bleed Hypertension Hypothyroidism Hypothyroidism Kidney disease Non-smoker Osteoporosis Premature atrial contractions Premature supraventricular beats Premature ventricular contraction Type 2 diabetes mellitus Ventricular ectopy Home Medications allopurinol 100 mg PO DAILYCM 12/04/13 [History Last Taken 07/04/21] aspirin 81 mg PO BID 12/04/13 [History Last Taken 07/04/21] folic acid 1 mg PO BIDCM 12/04/13 [History Last Taken 07/04/21] meclizine 12.5 mg PO BID PRN PRN 12/04/13 [History Last Taken 05/24/15 25 MG] furosemide 40 mg PO DAILY #30 tab 12/08/13 [Rx Last Taken 07/04/21] biotin 5,000 mcg PO DAILY 03/10/16 [History Last Taken 07/04/21] montelukast 10 mg PO QHS 03/10/16 [History Last Taken 07/03/21] docusate sodium 100 mg PO BID 03/15/16 [History Last Taken 07/04/21] xrglukzo-psq-lhhf-FA-lutein 1 ea PO DAILY 10/17/16 [History Last Taken 07/04/21] cholecalciferol (vitamin D3) 1,250 mcg (50,000 unit) capsule 50,000 unit PO QMONTH cap 05/25/18 [History Last Taken 06/05/21] insulin aspart U-100 100 unit/mL (3 mL) subcutaneous pen 4 unit SUBCUT 0700,1200,1700 ml 05/25/18 [History Last Taken 07/04/21] losartan 25 mg tablet 25 mg PO DAILY 05/25/18 [History Last Taken 07/03/21] insulin glargine 100 unit/mL (3 mL) subcutaneous pen 6 unit SUBCUT QHS ml 05/26/19 [History Last Taken 07/04/21] oxycodone-acetaminophen 10 mg-325 mg tablet 1 tab PO Q8H tab 05/26/19 [History Last Taken 07/04/21] levothyroxine 100 mcg PO DAILY 12/25/19 [History Last Taken 07/04/21] cimetidine 800 mg PO DAILY 07/04/21 [History Last Taken Unknown] Allergy/AdvReac Type Severity Reaction Status Date / Time shellfish derived Allergy Severe Anaphylaxis Verified 07/04/21 16:21 hydrochlorothiazide Allergy Unknown Verified 07/04/21 16:21 [From Prinzide] Iodinated Contrast Media Allergy Anaphylaxis Verified 07/04/21 16:21 [Iodinated Contrast Media - IV Dye] lisinopril [From Prinzide] Allergy Unknown Verified 07/04/21 16:21 neomycin [Neomycin] Allergy Unknown Verified 07/04/21 16:21 Family History Father CVA (cerebral vascular accident) Myocardial infarction Heart disease Mother Cancer Brother Pacemaker Surgical History History of appendectomy History of back surgery History of cholecystectomy History of tonsillectomy Social History Smoking Status: Never smoker alcohol intake: never caffeine: Yes Type: coffee Number of servings: 4 ROS Constitutional Constitutional: Denies chills, fatigue, fever(s) or malaise Eyes Eyes: Denies blurry vision ENT HEENT: Denies headache(s) or nasal discharge Cardiovascular Cardiovascular: Denies chest pain, dyspnea on exertion or syncope Respiratory/Chest Respiratory/Chest: Denies cough, shortness of breath at rest or shortness of breath with exertion Gastrointestinal Gastrointestinal: Denies constipation, diarrhea, nausea or vomiting Genitourinary Genitourinary: Denies dysuria Musculoskeletal Musculoskeletal: Reports joint pain and joint swelling Neurologic Neurologic: Denies focal weakness, numbness or tremor(s) Psychiatric Psychiatric: Denies anxiety or depression Vital Signs Vital Signs Vital Signs: 07/04/21 16:18 07/04/21 19:01 Temperature 97.8 F 98 F Temperature Source Oral Temporal Pulse Rate 96 78 Respiratory Rate 18 15 Blood Pressure 178/64 H 177/54 H Blood Pressure Mean 102 95 Pulse Ox 96 98 Oxygen Delivery Method Room Air Room Air Weight Weight: 190 lb 4.143 oz Body Mass Index (BMI) 34.7 Physical Exam Const alert, oriented x3 and no apparent distress General Appearance: cooperative HEENT normocephalic and moist oral mucous membranes Eyes PERRL, EOMs intact bilaterally and conjunctivae normal Neck supple and no JVD Chest Chest: abnormal inspection of the chest swelling (Anterior chest up by her shoulder joint) and ecchymosis Breast/Axilla Inspection: abnormal inspection of the breast edema and other (Ecchymosis of right breast appears to be improving per daughter) Resp normal respiratory effort, no retractions, no use of accessory muscles and clear to auscultation bilaterally Auscultation: Negative for crackles, rales, rhonchi or wheezes Cardio regular rate, regular rhythm, S1 normal heart sound, S2 normal heart sound and no murmurs GI soft to palpation, non-tender and non-distended; Negative for hepatosplenomegaly Extremity Extremity Narrative: Pain to palpation of her right shoulder and pain with any significant movement of her right shoulder General Extremity: edema; Negative for clubbing or cyanosis Skin no rashes or lesions noted Neuro no focal motor deficits and no sensory deficits noted Psych affect normal Appearance: appropriate Results Lab / Micro Data Result Diagrams: 07/04/21 16:05 07/04/21 16:05 Labs: Laboratory Results - last 24 hr 07/04/21 16:05: WBC 7.1, RBC 3.73 L, Hgb 11.6 L, Hct 34.8 L, MCV 93.3, MCH 31.1, MCHC 33.3, RDW Std Deviation 46.4 H, RDW Coeff of Skye 13.6, Plt Count 250, MPV 9.9 07/04/21 16:05: Sodium 135 L, Potassium 4.4, Chloride 100, Carbon Dioxide 30.0, Anion Gap 5, BUN 42 H, Creatinine 1.23 H, Estim Creat Clear Calc 25.49, Est GFR (MDRD) Af Amer 53 L, Est GFR (MDRD) Non-Af 44 L, BUN/Creatinine Ratio 34.1 H, Glucose 222 H, Calcium 9.[address] 07/04/21 16:43 IMPRESSION: Destruction of the right humeral head with a large joint effusion. Septic arthritis should be excluded. Electronically Signed: Charles Carmona MD at 17:54 EDT Reading Location ID and State: [id number] / [employer] Tel , Service support , Shoulder X-Ray 07/04/21 17:15 IMPRESSION: Anterior dislocation of the glenohumeral joint. Electronically Signed: Charles Carmona MD at 17:29 EDT , Assessment & Plan Assessment/Plan (1) Chest wall hematoma: PLAN: 1. Chest wall hematoma as well as a probable intra-articular hematoma of the right shoulder ?CT of the chest was initially obtained to evaluate the ecchymosis of her right breast and this demonstrated a destruction of the right humeral head with a large joint effusion. Clinical picture is not consistent with a septic arthritis given the fact that she is afebrile without a leukocytosis. I am hesitant to drain some that does not appear to be infected at this time therefore will monitor and obtain a CBC in the morning ?Pain management ?PT/OT with disposition, I did discuss with him the possibility of fdc placement depending on how she does with physical therapy and Occupational Therapy ?We will hold her aspirin ?Discussion with the ED physician, they state that they discussed the case with orthopedic surgery who said there is nothing to do unless there is significant concern for septic arthritis as she is not an operative candidate. 2. HTN/HLD/chronic diastolic CHF ?Blood pressures are stable ?we will continue her home medications including Lasix ?Hold aspirin secondary to the hematoma 3. DM2/CKD 3 A ?Continue with her home blood sugars ?Placed on a carb controlled diet ?Accu-Cheks AC at bedtime ?Sliding scale insulin, will make adjustments as necessary ?Renal function is at baseline we will continue to monitor 4. Hypothyroidism ?Stable ?Continue with throat DVT: SCDs Charges/Coding Visit Charges OBSV E&M: 48381 Initial observation care L2
--- NOTE | 2021-07-04 19:56 | CM.ED ---
RN CM Assessment Introduced role of RN CM to patient and patient Laurent Rodriguez at bedside.? Patient is alert, oriented and able?to participate in RN CM Assessment. ?Care providers, pharmacy, and demographics verified. Admit Dx: OBS for Rt Shoulder and Chest hematoma with pain Re-Admit: No Barriers/Issues: None. Has a private hire caregiver 7hrs/day while dtr Julia at work. PCP: Chris Henson Specialists: Nephro- [place], Cardio- [facility], POD- [facility] Preferred Pharmacy: [facility] Insurance: [facility] Rx Benefit:?Yes, [employer] LNOK: Dtr Dulce Sher and Dtr Julia Rodriguez #[phone], Son Narinder Villalba LW/HPOA: States has AD completed, aware not on file at [facility] and if brought in a copy will be placed on file. HPOA- Dtr Dulce Sher Living Arrangements:?Lives with laurent Rodriguez in a H, has ramp access and 1 step inside home. ADL?s: Ambulates with walker, Total assist. Ind w/feeding self and going to bathroom but needs assistance with wiping. Transportation: Laurent Dumont DME: Walker-No wheels, has balls to slide. BSC-uses as toilet riser, Neb, Continuous Glucometer HHC: Past SNF: None Goal: Home and does not think will have any needs but okay with HH if recommended. DC PLAN: Home and no anticipated needs identified. Monitor for any HH need. RICA Rodriguez
[2021-07-04 20:15] VITALS: BMI 33.8
[2021-07-04 20:22] VITALS: BP 171/57; PULSE 87; RESP 18; TEMP 36.9; O2SAT 94
[2021-07-04] MEDS: oxyCODONE 5 MG Tablet 10 MG PO (22:10)
[2021-07-04] MEDS: Docusate Sodium 100 MG Capsule PO (22:10)
[2021-07-04] MEDS: Insulin Glargine-YFGN 100 UNIT/ML Pen 6 UNIT SC (22:11)
[2021-07-04] MEDS: Montelukast 10 MG Tablet PO (22:11)
[2021-07-04] MEDS: Insulin Lispro 100 UNIT/ML INSULN.PEN SC (22:12)
[2021-07-04] MEDS: Folic Acid 1 MG Tablet PO (22:29)
[2021-07-04] MEDS: Losartan Potassium 25 MG Tablet PO (22:30)
[2021-07-04 22:45] LABS: Bedside Glucose 263 mg/dL (74-106)
[2021-07-05 02:57] VITALS: BP 129/44; PULSE 78; RESP 18; TEMP 36.7; O2SAT 98
[2021-07-05] MEDS: Acetaminophen 325 MG Tablet 650 MG PO ×2 (03:06→22:06)
[2021-07-05] MEDS: oxyCODONE 5 MG Tablet 10 MG PO ×2 (06:30→22:06)
[2021-07-05] MEDS: Levothyroxine 100 MCG Tablet PO (06:30)
[2021-07-05] MEDS: Ondansetron 4 MG/2 ML Vial IV (06:34)
[2021-07-05] MEDS: 0.9% Saline Lock 10 ML Syringe IV ×2 (06:34→12:00)
[2021-07-05 06:46] LABS: Bedside Glucose 205 mg/dL (74-106)
[2021-07-05 07:29] LABS: Absolute Lymphocyte Count 1.02 X10^3/uL (0.83-4.51); Basophil# 0.03 X10^3/uL; Basophil% 0.4 % (0-1); Eosinophil# 0.16 X10^3/uL; Eosinophils% 2.3 % (0-5); Hematocrit 29.4 % (37-47); Hemoglobin 9.5 g/dL (12.0-15.0); Lymphocyte # 1.02 X10^3/ul (0.83-4.51); Lymphocyte % 14.7 % (19-41); Mean Corp Hgb Conc 32.3 g/dL (32-36); Mean Corpuscular Hgb 31.5 pg (27.0-32.0); Mean Corpuscular Volume 97.4 fL (81-99); Mean Platelet Vol. 10.5 fl (6.2-12.0); Monocyte# 0.73 X10^3/uL; Monocyte% 10.5 % (0-10); NRBC Flagged by Analyzer 0 % (0-5); Neutrophil # 4.99 X10^3/uL (2.7-7.7); Neutrophil % 71.8 % (47-70); POSITIVE COUNT YES; Platelet Count 218 K/mm3 (150-450); RBC Distribution Width CV 13.6 % (11.6-14.6); Red Blood Count 3.02 M/mm3 (4.2-5.4)
[2021-07-05 07:51] LABS: Anion Gap 3 (5-15); BUN 41 mg/dL (7-18); BUN/Creat Ratio 33.1 RATIO (10-20); Calcium,Total 8.9 mg/dL (8.5-10.1); Chloride 103 mmol/L (98-107); Creatinine, Serum 1.24 mg/dL (0.55-1.02); EST Glomerular Filtration Rate 44 mL/min (>60); Est Glom Filt Rate - Afr Amer 53 mL/min (>60); Estimated Creatinine Clearance 24.12 ml/min; Glucose 198 mg/dL (74-106); Potassium 4.2 mmol/L (3.5-5.1); Sodium Level 137 mmol/L (136-145)
[2021-07-05 08:49] VITALS: BP 122/43; PULSE 72; RESP 18; TEMP 36.7; O2SAT 97
[2021-07-05] MEDS: Insulin Lispro 100 UNIT/ML INSULN.PEN SC ×5 (09:06→17:22)
[2021-07-05] MEDS: Allopurinol 100 MG Tablet PO (09:17)
[2021-07-05] MEDS: Famotidine 20 MG Tablet PO (09:17)
[2021-07-05] MEDS: Furosemide 40 MG Tablet PO (09:17)
[2021-07-05] MEDS: Docusate Sodium 100 MG Capsule PO (09:17)
[2021-07-05] MEDS: Folic Acid 1 MG Tablet PO ×2 (09:18→17:22)
[2021-07-05 10:30] VITALS: BP 120/45; PULSE 76; RESP 18; O2SAT 100
[2021-07-05 11:06] LABS: Bedside Glucose 133 mg/dL (74-106)
[2021-07-05] MEDS: proCHLORPERazine 10 MG/2 ML Vial IV (11:58)
--- NOTE | 2021-07-05 12:22 | CASEMGMT ---
Addendum entered by Day Mondragon 07/05/21 15:40: SW placed Green sheet on the chart in the event pre-cert is obtained. Original Note: Social Work Note SW updated that pt and pt's daughter are requesting TCU at discharge. SW placed a call to Heidi with TCU and provided referral. TCU to submit for pre-cert. SW in to speak with pt and p't daughter. SW introduced self and role at [facility]. SW updated pt and pt's daughter that TCU can accept pt pending pre-cert. Pt and pt's daughter state understanding. Patient was provided a list of SNF providers including quality and resource use data and consistent with the patient?s preferred geographic region, medical needs, and insurance network. Pt and pt's daughter confirm TCU is preferred provider. Plan: TCU pending pre-cert Day ARSHAD, SEMICOND[employer]CTOR EQUIPMENT TECHNICIAN
--- NOTE | 2021-07-05 12:26 | PN.HOSP_ITS ---
Subjective Subjective Got up with therapy today and got short of breath. Still feels short of breath and feels that her throat is closing. According to her daughter, patient has had episodes of this twice before. Nauseated. Objective Data Objective Data Vital Signs: Vital Signs Temp Pulse Resp BP Pulse Ox 36.7 C 76 18 120/45 L 100 07/05/21 08:49 07/05/21 10:30 07/05/21 10:30 07/05/21 10:30 07/05/21 10:30 Oxygen Delivery Method Room Air Weight: 83.4 kg Body Mass Index (BMI) 33.8 Intake & Output: Intake and Output for Last 24 Hours 07/03/21 07/04/21 07/05/21 23:59 23:59 23:59 Intake Total 200 / 200 Output Total 600 / 600 Balance -400 / -400 Lab / Micro Data Result Diagrams: 07/05/21 07:05 07/05/21 07:05 Labs: Laboratory Results - last 24 hr 07/04/21 16:05: WBC 7.1, RBC 3.73 L, Hgb 11.6 L, Hct 34.8 L, MCV 93.3, MCH 31.1, MCHC 33.3, RDW Std Deviation 46.4 H, RDW Coeff of [place] 13.6, Plt Count 250, MPV 9.9 07/04/21 16:05: Sodium 135 L, Potassium 4.4, Chloride 100, Carbon Dioxide 30.0, Anion Gap 5, BUN 42 H, Creatinine 1.23 H, Estim Creat Clear Calc 25.49, Est GFR (MDRD) Af Amer 53 L, Est GFR (MDRD) Non-Af 44 L, BUN/Creatinine Ratio 34.1 H, Glucose 222 H, Calcium 9.2 07/04/21 22:05: POC Glucose 263 H 07/05/21 06:28: POC Glucose 205 H 07/05/21 07:05: WBC 7.0, RBC 3.02 L, Hgb 9.5 L, Hct 29.4 L, MCV 97.4, MCH 31.5, MCHC 32.3, RDW Std Deviation 49.0 H, RDW Coeff of [place] 13.6, Plt Count 218, MPV 10.5, Immature Gran % (Auto) 0.300, Neut % (Auto) 71.8 H, Lymph % (Auto) 14.7 L, [place] % (Auto) 10.5 H, Eos % (Auto) 2.3, Baso % (Auto) 0.4, Absolute Neuts (auto) 5.0, Absolute Lymphs (auto) 1.02, Nucleated RBC % 0 07/05/21 07:05: Sodium 137, Potassium 4.2, Chloride 103, Carbon Dioxide 31.0, Anion Gap 3 L, BUN 41 H, Creatinine 1.24 H, Estim Creat Clear Calc 24.12, Est GFR (MDRD) Af Amer 53 L, Est GFR (MDRD) Non-Af 44 L, BUN/Creatinine Ratio 33.1 H , Glucose 198 H, Calcium 8.9 07/05/21 10:53: POC Glucose 133 H Radiography Diagnostic Testing: Radiology Impression Chest CT 07/04/21 16:43 IMPRESSION: Destruction of the right humeral head with a large joint effusion. Septic arthritis should be excluded. Electronically Signed: Charles Carmona MD at 17:54 EDT Reading Location ID and State: [id number] / [place] [employer] , Service support , Shoulder X-Ray 07/04/21 17:15 IMPRESSION: Anterior dislocation of the glenohumeral joint. Electronically Signed: Charles Carmona MD at 17:29 EDT Reading Location ID and State: [id number] / [place] [employer] , Service support , Physical Exam Const alert and no apparent distress Constitutional Narrative: Kyphotic. No respiratory distress. Hypophonia but improved later during encounter. Spits up while in the room. HEENT Head and Scalp: normocephalic Resp normal respiratory effort, no retractions, no use of accessory muscles and clear to auscultation bilaterally Cardio regular rate, regular rhythm, S1 normal heart sound and S2 normal heart sound GI normal to inspection, nondistended, normoactive bowel sounds, soft to palpation, non-tender and non-distended Extremity normal to inspection Skin no rashes or lesions noted and no wounds Neuro no focal motor deficits Sensorium / Orientation: awake and alert Psych Psych Narrative: Flat affect Assessment & Plan Assessment/Plan (1) Chest wall hematoma: QUALIFIERS: Encounter type: initial encounter Laterality: right Qualified Code(s): S20.211A - Contusion of right front wall of thorax, initial encounter (2) Failure to thrive: QUALIFIERS: Failure to thrive age range: in adult Qualified Code(s): R62.7 - Adult failure to thrive PLAN: 1. Failure to thrive * Initial plan according to the patient's daughter was to go home with health care but open to transitional care unit. Patient has been there before. They do not want her to go there because of concern of staffing issues at the nurse. They did inquire about rehab but she was open to transitional care unit. * PT OT evaluate and treat * Discussed with case management require precertification before she can go. 2. Chest wall hematoma * More axillary on the right. Patient was trying to brace herself by getting up in the bathroom 3. Right humeral head joint effusion * Not surgical 4. 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 Dyspnea * Subjective * Concerned the patient may be feeling anxious and reassurance provided 6. Anxiety * Discussed with the patient's daughter that we could utilize a low-dose of benzodiazepine with the patient is more alert 7. VTE prophylaxis with SCDs Greater than 35 minutes of which greater than 50% time was counseling patient's daughter had reassuring patient bedside. Charges/Coding Visit Charges OBSV E&M: 78777 Subsequent observation care L3
[2021-07-05 14:44] VITALS: BP 108/35; PULSE 76; RESP 16; TEMP 37.3; O2SAT 95
--- NOTE | 2021-07-05 16:08 | CASEMGMT ---
ED DE LUNA NOTE: Intro role of CM to patient to review BARILLAS form w/her. Pt stated, You'll have to talk w/my daughter. Call placed to dtrDulce. Intro role of CM to dtr. BARILLAS form explained re: Observation status for treatment of right shoulder and chest hematoma with pain. Explained hospitalization will be paid per pt's insurance policy for Outpatient billing and condition will continue to be evaluated for Inpt necessity. Also let pt know that [facility] sends paper in the billing packet with their phone number if questions arise. Questions answered. Phone signature obtained by Dulce, with DE DE LUNA and witness of NICK Ariza, copy made and placed in chart, and original placed in pt's room. Dhara MILLER RN, CM
[2021-07-05 16:26] LABS: Bedside Glucose 225 mg/dL (74-106)
[2021-07-05 16:36] LABS: Bedside Glucose 234 mg/dL (74-106)
[2021-07-05] MEDS: Losartan Potassium 25 MG Tablet PO (17:23)
[2021-07-05 17:26] VITALS: BP 123/48; PULSE 75; RESP 16; TEMP 36.6; O2SAT 96
[2021-07-05] MEDS: Montelukast 10 MG Tablet PO (22:06)
[2021-07-05] MEDS: LORazepam 0.5 MG Tablet PO (22:07)
[2021-07-05] MEDS: Insulin Glargine-YFGN 100 UNIT/ML Pen 6 UNIT SC (22:07)
[2021-07-05 22:17] VITALS: BP 135/45; PULSE 70; RESP 16; TEMP 36.3; O2SAT 100
[2021-07-05 22:21] LABS: Bedside Glucose 142 mg/dL (74-106)
[2021-07-06] MEDS: Menthol/Lanolin/Calamine/Znox 113 GM Tube 1 APPLIC TOPICAL ×2 (06:11→10:00)
[2021-07-06] MEDS: Levothyroxine 100 MCG Tablet PO (06:12)
[2021-07-06 06:23] VITALS: BP 135/44; PULSE 80; RESP 16; TEMP 36.6; O2SAT 99
[2021-07-06] MEDS: Insulin Lispro 100 UNIT/ML INSULN.PEN SC ×4 (07:58→13:22)
[2021-07-06] MEDS: Folic Acid 1 MG Tablet PO (08:00)
[2021-07-06] MEDS: Allopurinol 100 MG Tablet PO (08:01)
[2021-07-06 08:11] LABS: Bedside Glucose 201 mg/dL (74-106)
--- NOTE | 2021-07-06 09:13 | RAD_ITS ---
STUDY: X-RAY - RIGHT ELBOW REASON FOR EXAM: Female, 86 years old. Right elbow pain TECHNIQUE: 3 view(s) of the elbow. COMPARISON: None. FINDINGS: There is demineralization of the visualized humerus, radius and ulna. There is degenerative arthrosis of the radiocapitellar and ulnotrochlear articulations. The soft tissue structures are unremarkable. RAD/Elbow min 3 Views IMPRESSION: Osteopenia with degenerative arthrosis, no demonstrated fracture Electronically Signed: Mac Carmona MD at 10:14 EDT ,
[2021-07-06 09:55] VITALS: BP 122/38; PULSE 76; RESP 18; TEMP 36.7; O2SAT 100
[2021-07-06] MEDS: Famotidine 20 MG Tablet PO (10:01)
[2021-07-06] MEDS: Docusate Sodium 100 MG Capsule PO (10:01)
[2021-07-06] MEDS: Furosemide 40 MG Tablet PO (10:01)
[2021-07-06] MEDS: Polyethylene Glycol 3350 17 GM PACKET PO (10:01)
[2021-07-06] MEDS: Fluticasone 0.05% 1 SPRAY NASAL.SRY 2 SPRAY NASAL (10:01)
[2021-07-06] MEDS: Nystatin Powder 15gm Bottle 1 APPLIC TOPICAL (10:02)
--- NOTE | 2021-07-06 10:09 | CASEMGMT ---
Social Work Note SW received call from Heidi with TCU stating pre-cert was obtained, pt can discharge today, pt will need COVID test. 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
--- NOTE | 2021-07-06 10:33 | TREXTCAR_ITS ---
Diet 07/04/21 20:00 Diet: Consistent Carb - Calorie Controlled Food consistency:: Regular Liquid Consistency:: Regular/Thin How many daily calories?: 1500 calorie Routine Orders/Code Status Code Status: Full Code Wound(s) LEFT BUTTOCKS: Wound Type: SCAB Therapies Weight Bearing: Weight bearing as tolerated Extremity Affected:: Right Upper Physical Therapy: Eval and Treat Occupational Therapy: Eval and Treat Problem/Diagnosis (1) Chest wall hematoma: Status: Acute (2) Failure to thrive: Status: Acute Allergies/Procedures Done in Hospital Allergies shellfish derived Allergy (Severe, Verified 07/04/21 16:21) Anaphylaxis hydrochlorothiazide [From Prinzide] Allergy (Verified 07/04/21 16:21) Unknown Iodinated Contrast Media [Iodinated Contrast Media - IV Dye] Allergy (Verified 07/04/21 16:21) Anaphylaxis lisinopril [From Prinzide] Allergy (Verified 07/04/21 16:21) Unknown neomycin [Neomycin] Allergy (Verified 07/04/21 16:21) Unknown guaifenesin [From Mucinex] Adverse Reaction (Severe, Unverified 07/06/21 09:27) NEEDS FOLLOW-UP Procedures: None Type of Care/Length of Stay Estimated LOS: Convalescent Care Less Than 30 days Type of Care Needed: Skilled Rehab Potential: Fair Prognosis: Fair Additional Orders/Day of Discharge Day of Discharge: 07/06/21 Discharge Plan Admission Admit Date/Time: 07/04/21 19:18 Primary Reason for Your Visit: failure to thrive Attending Provider: Crow Medina Primary Care Provider: Garret Henson Discharge Orders/Prescriptions Prescriptions: New oxycodone 5 mg Tablet 10 mg PO Q8H PRN PRN (Reason: PAIN 1-10) 3 Days Qty: 18 RF: 0 acetaminophen [Tylenol] 325 mg Tablet 650 mg PO Q6H PRN PRN (Reason: Pain Score 1-10/Temp > 100.7 F) Qty: 0 RF: 0 lorazepam 0.5 mg Tablet 0.5 mg PO Q12H PRN PRN (Reason: Anxiety) 3 Days Qty: 6 RF: 0 fluticasone propionate 50 mcg/actuation [place],Suspension 2 spray NASAL DAILY Qty: 0 RF: 0 insulin lispro [Humalog KwikPen Insulin] 100 unit/mL Insulin Pen See Protocol unit subcut ACHS Qty: 0 RF: 0 polyethylene glycol 3350 17 gram Powder In Packet 17 g PO DAILY Qty: 0 RF: 0 melatonin 3 mg Tablet 3 mg PO QHS PRN PRN (Reason: Insomnia) Qty: 0 RF: 0 nystatin [Nyamyc] 100,000 unit/gram Powder 1 applic topical BID Qty: 0 RF: 0 ondansetron 4 mg tablet,disintegrating 4 mg PO Q8H PRN (Reason: nausea and vomiting) Qty: 10 RF: 0 Continued cholecalciferol (vitamin D3) 50,000 unit capsule 50,000 unit PO QMONTH RF: 0 losartan 25 mg tablet 25 mg PO DAILY RF: 0 allopurinol 100 MG tablet 100 mg PO DAILYCM RF: 0 meclizine 25 MG tablet 12.5 mg PO BID PRN PRN (Reason: Dizziness) RF: 0 aspirin 81 MG tablet,chewable 81 mg PO BID RF: 0 folic acid 1 MG tablet 1 mg PO BIDCM RF: 0 furosemide 40 MG tablet 40 mg PO DAILY Qty: 30 RF: 0 insulin aspart U-100 100 unit/mL insulin pen 4 unit subcut 0700,1200,1700 RF: 0 insulin glargine 100 unit/mL (3 mL) insulin pen 6 unit subcut QHS RF: 0 biotin 10,000 MCG capsule 5,000 mcg PO DAILY RF: 0 montelukast 10 MG tablet 10 mg PO QHS RF: 0 vbwtudhr-mey-bhtc-FA-lutein 1 EACH tablet 1 ea PO DAILY RF: 0 levothyroxine 112 MCG tablet 100 mcg PO DAILY RF: 0 cimetidine 400 mg Tablet 800 mg PO DAILY PRN (Reason: upset stomach) RF: 0 docusate sodium 100 MG capsule 100 mg PO BID RF: 0 Discontinued oxycodone-acetaminophen 10-325 mg tablet 1 tab PO Q8H RF: 0 Referrals / Follow Up: Garret Henson MD [Primary Care Provider] - Within 2 Weeks Disposition Disposition (needs filled in before D/C Order can be placed): Custodial Facility
--- NOTE | 2021-07-06 12:19 | PCM.DC.SUM ---
Providers Date of Admission: 07/04/21 Primary Care Physician: Dr. Garret Henson MD Reason For Visit: RIGHT SHOULDER AND CHEST HEMATOMA WITH PAIN Diagnosis Discharge Diagnosis (1) Chest wall hematoma: Status: Acute Code(s): S20.219A - Contusion of unspecified front wall of thorax, initial encounter Qualifiers: Encounter type: initial encounter Laterality: right Qualified Code(s): S20.211A - Contusion of right front wall of thorax, initial encounter (2) Failure to thrive: Status: Acute Qualifiers: Failure to thrive age range: in adult Qualified Code(s): R62.7 - Adult failure to thrive Medications at Discharge Home Medications allopurinol 100 mg PO DAILYCM 12/04/13 aspirin 81 mg PO BID 12/04/13 folic acid 1 mg PO BIDCM 12/04/13 meclizine 12.5 mg PO BID PRN PRN 12/04/13 furosemide 40 mg PO DAILY #30 tab 12/08/13 biotin 5,000 mcg PO DAILY 03/10/16 montelukast 10 mg PO QHS 03/10/16 docusate sodium 100 mg PO BID 03/15/16 ooryvtqp-dgk-cmbi-FA-lutein 1 ea PO DAILY 10/17/16 cholecalciferol (vitamin D3) 1,250 mcg (50,000 unit) capsule 50,000 unit PO QMONTH cap 05/25/18 insulin aspart U-100 100 unit/mL (3 mL) subcutaneous pen 4 unit SUBCUT 0700,1200,1700 ml 05/25/18 losartan 25 mg tablet 25 mg PO DAILY 05/25/18 insulin glargine 100 unit/mL (3 mL) subcutaneous pen 6 unit SUBCUT QHS ml 05/26/19 levothyroxine 100 mcg PO DAILY 12/25/19 cimetidine 800 mg PO DAILY PRN 07/04/21 acetaminophen [Tylenol] 650 mg PO Q6H PRN PRN #0 tab 07/06/21 fluticasone propionate 2 spray NASAL DAILY #0 g 07/06/21 insulin lispro [Humalog KwikPen Insulin] See Protocol SUBCUT ACHS #0 ml 07/06/21 lorazepam 0.5 mg PO Q12H PRN PRN 3 Days #6 tab 07/06/21 melatonin 3 mg PO QHS PRN PRN #0 tab 07/06/21 nystatin [Nyamyc] 1 applic TOPICAL BID #0 g 07/06/21 ondansetron 4 mg PO Q8H PRN #10 tab 07/06/21 oxycodone 10 mg PO Q8H PRN PRN 3 Days #18 tab 07/06/21 polyethylene glycol 3350 17 g PO DAILY #0 ea 07/06/21 Hospital Course Operations None Procedures None Summary of Care Provided Minutes Spent on Discharge: 40 Hospital Course: This is an 86-year-old white female who was getting off the commode using a grab bar and then slipped. Did not fall but patient has a chronically dislocated right shoulder and was using her arm to brace herself. Patient sustained a hematoma involving her right breast. Patient was sent to the hospital because of debility. Patient on the got up with therapy and felt short of breath. Patient was complaining of feeling her throat closing off. She was on room air and satting in the 90s. Patient eventually did feel better. Is felt that that was prior more anxiety than any other medical etiology. Family initially wanted her to go home but were open to her going to the transitional care unit. Patient may go to the transitional care unit today. Patient was cleaning some numbness in her fingers we will check an x-ray of her elbow make sure was no fracture. There was no fracture just osteopenia. Patient has a chronic dislocated right shoulder that has been deemed not a surgical candidate. Physical Exam Const alert Neck no lymphadenopathy Resp normal respiratory effort, no retractions and no use of accessory muscles Cardio regular rate, regular rhythm, S1 normal heart sound and S2 normal heart sound GI normal to inspection, nondistended, normoactive bowel sounds and soft to palpation Extremity normal to inspection Skin Skin Narrative: Ecchymosis over right lateral breast. Weight / BMI Weight Weight: 83.4 kg Body Mass Index (BMI) 33.8 ABG / Lab / Microbiology Data Result Diagrams: 07/05/21 07:05 07/05/21 07:05 Laboratory: Laboratory Results - last 24 hr 07/05/21 16:02: POC Glucose 225 H 07/05/21 16:26: POC Glucose 234 H 07/05/21 21:51: POC Glucose 142 H 07/06/21 07:57: POC Glucose 201 H Radiography Diagnostic Testing: Radiology Impression Elbow X-Ray 07/06/21 09:13 IMPRESSION: Osteopenia with degenerative arthrosis, no demonstrated fracture Electronically Signed: Mac Carmona MD at 10:14 EDT , D/C Instructions Discharge Diet: No restrictions Meaningful Use Info Meaningful Use Diagnoses (Choose all that apply): None applicable Discharge Plan Admission Admit Date/Time: 07/04/21 19:18 Primary Reason for Your Visit: failure to thrive Attending Provider: Crow Medina Primary Care Provider: Garret Henson Discharge Orders/Prescriptions Prescriptions: New oxycodone 5 mg Tablet 10 mg PO Q8H PRN PRN (Reason: PAIN 1-10) 3 Days Qty: 18 RF: 0 acetaminophen [Tylenol] 325 mg Tablet 650 mg PO Q6H PRN PRN (Reason: Pain Score 1-10/Temp > 100.7 F) Qty: 0 RF: 0 lorazepam 0.5 mg Tablet 0.5 mg PO Q12H PRN PRN (Reason: Anxiety) 3 Days Qty: 6 RF: 0 fluticasone propionate 50 mcg/actuation [place],Suspension 2 spray NASAL DAILY Qty: 0 RF: 0 insulin lispro [Humalog KwikPen Insulin] 100 unit/mL Insulin Pen See Protocol unit subcut ACHS Qty: 0 RF: 0 polyethylene glycol 3350 17 gram Powder In Packet 17 g PO DAILY Qty: 0 RF: 0 melatonin 3 mg Tablet 3 mg PO QHS PRN PRN (Reason: Insomnia) Qty: 0 RF: 0 nystatin [Nyamyc] 100,000 unit/gram Powder 1 applic topical BID Qty: 0 RF: 0 ondansetron 4 mg tablet,disintegrating 4 mg PO Q8H PRN (Reason: nausea and vomiting) Qty: 10 RF: 0 Continued cholecalciferol (vitamin D3) 50,000 unit capsule 50,000 unit PO QMONTH RF: 0 losartan 25 mg tablet 25 mg PO DAILY RF: 0 allopurinol 100 MG tablet 100 mg PO DAILYCM RF: 0 meclizine 25 MG tablet 12.5 mg PO BID PRN PRN (Reason: Dizziness) RF: 0 aspirin 81 MG tablet,chewable 81 mg PO BID RF: 0 folic acid 1 MG tablet 1 mg PO BIDCM RF: 0 furosemide 40 MG tablet 40 mg PO DAILY Qty: 30 RF: 0 insulin aspart U-100 100 unit/mL insulin pen 4 unit subcut 0700,1200,1700 RF: 0 insulin glargine 100 unit/mL (3 mL) insulin pen 6 unit subcut QHS RF: 0 biotin 10,000 MCG capsule 5,000 mcg PO DAILY RF: 0 montelukast 10 MG tablet 10 mg PO QHS RF: 0 qozsmjes-jyf-wnhg-FA-lutein 1 EACH tablet 1 ea PO DAILY RF: 0 levothyroxine 112 MCG tablet 100 mcg PO DAILY RF: 0 cimetidine 400 mg Tablet 800 mg PO DAILY PRN (Reason: upset stomach) RF: 0 docusate sodium 100 MG capsule 100 mg PO BID RF: 0 Discontinued oxycodone-acetaminophen 10-325 mg tablet 1 tab PO Q8H RF: 0 Referrals / Follow Up: Garret Henson MD [Primary Care Provider] - Within 2 Weeks Disposition Disposition (needs filled in before D/C Order can be placed): [facility] Charges/Coding Visit Charges OBSV E&M: 10294 Observation care discharge
[2021-07-06 12:51] LABS: Bedside Glucose 173 mg/dL (74-106)
--- NOTE | 2021-07-06 13:10 | CASEMGMT ---
Social Work Note SW in to speak with pt and pt's daughter present in room. SW updated pt and daughter that pre-cert for TCU was obtained and pt will discharge to TCU today. Pt and daughter state understanding. 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
[2021-07-06] MEDS: 0.9% Saline Lock 10 ML Syringe IV (13:28)
[2021-07-06] MEDS: Ondansetron 4 MG/2 ML Vial IV (13:28)
[2021-07-06 13:36] VITALS: BP 120/45; PULSE 81; RESP 18; TEMP 37; O2SAT 97
--- NOTE | 2021-07-06 14:48 | NURSING ---
Report called to Kellen in TCU.
== END 2021-07-06 14:59 ==
LOC: ED 19:06 → MS3 19:39
PROVIDERS: Admitting Provider Family Medicine; Emergency Provider Emergency Medicine; PCP Family Medicine
DX: S20.211A Contusion of right front wall of thorax, initial encounter (principal); I13.0 Hypertensive heart and chronic kidney disease with heart failure and stage 1 through stage 4 chronic kidney disease, or unspecified chronic kidney disease; I50.32 Chronic diastolic (congestive) heart failure; E11.22 Type 2 diabetes mellitus with diabetic chronic kidney disease; Z79.4 Long term (current) use of insulin; N18.30 Chronic kidney disease, stage 3 unspecified; M24.411 Recurrent dislocation, right shoulder; Z79.82 Long term (current) use of aspirin; R53.81 Other malaise; F41.9 Anxiety disorder, unspecified; M79.673 Pain in unspecified foot; W18.11XA Fall from or off toilet without subsequent striking against object, initial encounter; R62.7 Adult failure to thrive; M10.9 Gout, unspecified; Z79.899 Other long term (current) drug therapy; Z79.890 Hormone replacement therapy; Y93.9 Activity, unspecified; Y99.9 Unspecified external cause status; Y92.9 Unspecified place or not applicable; E03.9 Hypothyroidism, unspecified; K21.9 Gastro-esophageal reflux disease without esophagitis
CPT/HCPCS: 36415; 71250; 73030; 73080; 80048; 82962; 85025; 85027; 87426; 96374; 96375; 96376; 97162; 97166; 99218; 99285; A4216; G0378; J2405

== ENCOUNTER 2021-07-06 15:10 | Inpatient (IN) | payer MEDICARE, SELFPAY ==
[2021-07-06 15:21] VITALS: BP 136/49; PULSE 73; RESP 18; TEMP 36.7; O2SAT 96; BMI 33.5
--- NOTE | 2021-07-06 15:36 | HP.PCM_ITS ---
HPI - General General Date of Admission: 07/06/21 HPI Narrative 07/04/2021 NORMA PATEL, is a 86 Female who presents to [facility] Emergency Department with upper extremity injury. Right shoulder injury, right shoulder pain, right chest wall pain. On toilet, fell, injured right arm, right chest. Right chest wall bruising, swelling x 1 week. Right shoulder dislocated 1 year ago, could not be reduced. Fentanyl IV given for pain, X-ray right arm shows chronic right shoulder dislocation. CT chest showed fluid collection around right humeral head, rule out septic joint. Hematoma right shoulder, septic joint unlikely. 07/04/2021 Admit to Hospital. Right shoulder hematoma. right chest wall hematoma. PT/OT for debility, pain control. 07/05/2021 Shortness of breath, throat closing, nausea. PT/OT for longterm facility. Right humeral joint effusion, non-surgical. Dyspnea secondary to anxiety, consider low dose benzodiazepine. 07/06/2021 Room air pulsox 90's. Numbness in fingers, X-ray elbow negative fracture. 07/06/2021 Admit to TCU with debility, here for rehabilitation, strengthening, prior to discharge home alone. [facility] Medical History Acute GI bleeding Chronic renal disease, stage 3, moderately decreased glomerular filtration rate (GFR) between 30-59 mL/min/1.73 square meter Colitis Colitis Congestive heart failure (CHF) Depressed Depression Diabetes Diabetes mellitus Diastolic CHF, chronic Essential hypertension First degree AV block GERD GERD (gastroesophageal reflux disease) GI bleed Gout Gout History of GI bleed Hypertension Hypothyroidism Hypothyroidism Kidney disease Non-smoker Osteoporosis Premature atrial contractions Premature supraventricular beats Premature ventricular contraction Type 2 diabetes mellitus Ventricular ectopy Home Medications allopurinol 100 mg PO DAILYCM 12/04/13 [History Last Taken 07/04/21] aspirin 81 mg PO BID 12/04/13 [History Last Taken 07/04/21] folic acid 1 mg PO BIDCM 12/04/13 [History Last Taken 07/04/21] meclizine 12.5 mg PO BID PRN PRN 12/04/13 [History Last Taken 05/24/15 25 MG] biotin 5,000 mcg PO DAILY 03/10/16 [History Last Taken 07/04/21] montelukast 10 mg PO QHS 03/10/16 [History Last Taken 07/03/21] docusate sodium 100 mg PO BID 03/15/16 [History Last Taken 07/04/21] yxkksjqq-rog-hsue-FA-lutein 1 ea PO DAILY 10/17/16 [History Last Taken 07/04/21] cholecalciferol (vitamin D3) 1,250 mcg (50,000 unit) capsule 50,000 unit PO QMONTH cap 05/25/18 [History Last Taken 06/05/21] insulin aspart U-100 100 unit/mL (3 mL) subcutaneous pen 4 unit SUBCUT 0700,1200,1700 ml 05/25/18 [History Last Taken 07/04/21] losartan 25 mg tablet 25 mg PO DAILY 05/25/18 [History Last Taken 07/03/21] insulin glargine 100 unit/mL (3 mL) subcutaneous pen 6 unit SUBCUT QHS ml 05/26/19 [History Last Taken 07/04/21] levothyroxine 100 mcg PO DAILY 12/25/19 [History Last Taken 07/04/21] cimetidine 800 mg PO DAILY PRN 07/04/21 [History Last Taken Unknown] acetaminophen [Tylenol] 650 mg PO Q6H PRN PRN #0 tab 07/06/21 [Rx Last Taken Unknown] fluticasone propionate 2 spray NASAL DAILY 07/06/21 [History Last Taken Unknown] furosemide 40 mg PO DAILY 07/06/21 [History Last Taken Unknown] insulin lispro [Humalog KwikPen Insulin] See Protocol SUBCUT ACHS 07/06/21 [History Last Taken Unknown] lorazepam 0.5 mg PO Q12H PRN PRN 3 Days #6 tab 07/06/21 [Rx Last Taken Unknown] melatonin 3 mg PO QHS PRN PRN #0 tab 07/06/21 [Rx Last Taken Unknown] nystatin [Nyamyc] 1 applic TOPICAL BID 07/06/21 [History Last Taken Unknown] ondansetron 4 mg PO Q8H PRN #10 tab 07/06/21 [Rx Last Taken Unknown] oxycodone 10 mg PO Q8H PRN PRN 3 Days #18 tab 07/06/21 [Rx Last Taken Unknown] polyethylene glycol 3350 17 g PO DAILY 07/06/21 [History Last Taken Unknown] Allergy/AdvReac Type Severity Reaction Status Date / Time shellfish derived Allergy Severe Anaphylaxis Verified 07/04/21 16:21 hydrochlorothiazide Allergy Unknown Verified 07/04/21 16:21 [From Prinzide] Iodinated Contrast Media Allergy Anaphylaxis Verified 07/04/21 16:21 [Iodinated Contrast Media - IV Dye] lisinopril [From Prinzide] Allergy Unknown Verified 07/04/21 16:21 neomycin [Neomycin] Allergy Unknown Verified 07/04/21 16:21 guaifenesin [From Mucinex] AdvReac Severe PT UNSURE Verified 07/06/21 16:04 OF REACTION Family History Father CVA (cerebral vascular accident) Myocardial infarction Heart disease Mother Cancer Brother Pacemaker Surgical History History of appendectomy History of back surgery History of cholecystectomy History of tonsillectomy Social History (Updated 07/06/21 @ 15:[address] Bryce Bey MD) household members: none Smoking Status: Never smoker alcohol intake: never caffeine: Yes Type: coffee Number of servings: 4 ROS Constitutional Constitutional: Denies chills, fever(s) or weight gain ENT HEENT: Denies headache(s), nasal congestion or nasal discharge Cardiovascular Cardiovascular: Denies chest pain or palpitations Respiratory/Chest Respiratory/Chest: Denies cough, excessive phlegm production or shortness of breath with exertion Gastrointestinal Gastrointestinal: Denies abdominal pain, nausea or vomiting Genitourinary Genitourinary: Denies dysuria Musculoskeletal Musculoskeletal: Denies joint pain or joint swelling Integumentary Integumentary: Denies rash or wounds Neurologic Neurologic: Denies focal weakness, numbness or tingling Psychiatric Psychiatric: Denies anxiety, auditory hallucinations, depression, homicidal ideation or suicidal ideation Vital Signs Vital Signs Vital Signs: 07/06/21 15:21 Temperature 98.1 F Temperature Source Temporal Pulse Rate 73 Respiratory Rate 18 Blood Pressure 136/49 H Blood Pressure Mean 78 Blood Pressure Source Monitor Blood Pressure Position Semi-Fowlers Blood Pressure Location Left Arm Pulse Ox 96 Oxygen Delivery Method Room Air Weight Weight: 83.206 kg Body Mass Index (BMI) 33.5 Physical Exam Const alert General Appearance: cooperative HEENT normocephalic Eyes PERRL and EOMs intact bilaterally Neck supple, no JVD and no carotid bruits Chest Chest Narrative: Right lateral breast hematoma. Resp normal respiratory effort, normal air movement and clear to auscultation bilaterally Cardio regular rate and regular rhythm GI normal to inspection, nondistended, normoactive bowel sounds, non-tender and non-distended Extremity normal capillary refill General Extremity: Negative for edema Skin no rashes or lesions noted General Skin Exam: no breakdown Psych affect normal Appearance: appropriate Assessment & Plan Assessment/Plan (1) Debility: (2) Right arm pain: (3) Right shoulder pain: (4) Traumatic hematoma of right shoulder: (5) Hematoma of right chest wall: (6) Gout: (7) Dizziness: (8) Chronic diastolic congestive heart failure: (9) Allergic rhinitis: (10) Vitamin D deficiency: (11) Diabetes mellitus: (12) Hypertension: (13) Hypothyroidism: (14) Gastroesophageal reflux disease: PLAN: 86 year old female with below past medical history hospitalized for right shoulder pain secondary to right humeral hematoma, right chest wall hematoma, complicated by chronic dislocation right shoulder, admitted to TCU with debility, here for rehabilitation, strengthening, prior to discharge home alone. * Debility - PT/OT. * Pain - Tylenol 1000mg q6h prn pain (1-5), Oxycodone 10mg q4h prn pain (6-10). * Bowel - Miralax 17gm daily, Senna/colace 1 tablet bid, Dulcolax 10mg daily prn. * Adult immunization - Administer pneumonia vaccine, flu vaccine, covid19 vaccine. * DVT prophylaxis - HAS-BLED score 1 intermediate risk of bleeding, Amparo score 7 high risk of thromboembolism, overall risk of VTE intermediate, but recent hematoma, aspirin 81mg twice daily. * Gout - Allopurinol 100mg daily. * Hair loss - Biotin 5000mcg daily. * GERD - Cimetidine 800mg daily. * Vitamin D deficiency - D3 25mcg daily. * Allergic rhinitis - Montelukast 10mg qhs, Flonase 2 sprays daily. * Chronic diastolic congestive heart failure - Losartan 25mg daily, Furosemide 4mg daily. * Diabetes Mellitus II - Glargine 6 units qhs, Humalog 4 units tid. * Hypothyroidism - Levothyroxine 100mcg daily. * Anxiety - Lorazepam 0.5mg q12H prn, consider GDR. * Dizziness - Meclizine 12.5mg bid prn. * Insomnia - Melatonin 3mg qhs prn. * Nutrition - MVI daily. * Tinea corporis - Nystatin powder topical bid. * Nausea - Zofran 4mg q8h prn.
[2021-07-06 16:02] LABS: Bedside Glucose 114 mg/dL (74-106)
--- NOTE | 2021-07-06 16:03 | NURSING ---
offered covid vaccine, pt declined. states i have enough wrong with me, i don't want it
[2021-07-06] MEDS: Senna/Docusate Sodium 1 Tablet PO (17:23)
[2021-07-06] MEDS: Insulin Lispro 100 UNIT/ML INSULN.PEN SC (17:24)
[2021-07-06] MEDS: Aspirin 81 MG TAB.CHEW PO (17:24)
[2021-07-06] MEDS: Folic Acid 1 MG Tablet PO (17:24)
[2021-07-06] MEDS: Cholecalciferol (VIT D3) 25 MCG TABLET (1,000 UNITS) PO (17:24)
[2021-07-06] MEDS: Menthol/Lanolin/Calamine/Znox 113 GM Tube 1 APPLIC TOPICAL (17:26)
[2021-07-06] MEDS: 0.9% Saline Lock 10 ML Syringe IV (18:43)
[2021-07-06] MEDS: Insulin Glargine-YFGN 100 UNIT/ML Pen 6 UNIT SC (21:59)
[2021-07-06] MEDS: Montelukast 10 MG Tablet PO (22:00)
[2021-07-06] MEDS: oxyCODONE 5 MG Tablet 10 MG PO (22:01)
[2021-07-06] MEDS: Nystatin Powder 15gm Bottle 1 APPLIC TOPICAL (22:04)
[2021-07-07 01:15] LABS: Bedside Glucose 219 mg/dL (74-106)
--- NOTE | 2021-07-07 03:55 | NURSING ---
Patient's urine is cloudy and strong in smell. Encouraged patient to increase fluid intake. Patient stated she understood. Nursing continue to monitor.
[2021-07-07] MEDS: Levothyroxine 100 MCG Tablet PO (06:13)
[2021-07-07] MEDS: Fluticasone 0.05% 1 SPRAY NASAL.SRY 2 SPRAY NASAL (06:13)
[2021-07-07] MEDS: Polyethylene Glycol 3350 17 GM PACKET PO (06:13)
[2021-07-07] MEDS: Furosemide 40 MG Tablet PO (06:13)
[2021-07-07] MEDS: Losartan Potassium 25 MG Tablet PO (06:13)
[2021-07-07] MEDS: Senna/Docusate Sodium 1 Tablet PO ×2 (06:13→17:21)
[2021-07-07] MEDS: Cholecalciferol (VIT D3) 25 MCG TABLET (1,000 UNITS) PO (06:13)
[2021-07-07] MEDS: Nystatin Powder 15gm Bottle 1 APPLIC TOPICAL ×2 (06:15→17:21)
[2021-07-07] MEDS: Menthol/Lanolin/Calamine/Znox 113 GM Tube 1 APPLIC TOPICAL ×2 (06:16→17:21)
[2021-07-07 06:26] LABS: Bedside Glucose 183 mg/dL (74-106)
[2021-07-07 07:45] LABS: Absolute Lymphocyte Count 1.49 X10^3/uL (0.83-4.51); Absolute Neutrophil Count 3.4 X10^3/uL (2.0-7.7); Basophil# 0.05 X10^3/uL; Basophil% 0.8 % (0-1); Eosinophil# 0.47 X10^3/uL; Eosinophils% 7.7 % (0-5); Hematocrit 27.6 % (37-47); Hemoglobin 9.1 g/dL (12.0-15.0); Lymphocyte # 1.49 X10^3/ul (0.83-4.51); Lymphocyte % 24.4 % (19-41); Mean Corpuscular Hgb 31.2 pg (27.0-32.0); Mean Corpuscular Volume 94.5 fL (81-99); Mean Platelet Vol. 10.5 fl (6.2-12.0); Monocyte# 0.71 X10^3/uL; Monocyte% 11.6 % (0-10); NRBC Flagged by Analyzer 0 % (0-5); Neutrophil # 3.35 X10^3/uL (2.7-7.7); Platelet Count 228 K/mm3 (150-450); RBC Distribution Width CV 13.5 % (11.6-14.6); RBC Distribution Width SD 46.4 fl (35.1-43.9); Red Blood Count 2.92 M/mm3 (4.2-5.4); White Blood Count 6.1 K/mm3 (4.4-11.0)
[2021-07-07 08:16] LABS: Anion Gap 3 (5-15); BUN 46 mg/dL (7-18); BUN/Creat Ratio 29.9 RATIO (10-20); Calcium,Total 8.6 mg/dL (8.5-10.1); Chloride 98 mmol/L (98-107); Creatinine, Serum 1.54 mg/dL (0.55-1.02); EST Glomerular Filtration Rate 34 mL/min (>60); Est Glom Filt Rate - Afr Amer 41 mL/min (>60); Estimated Creatinine Clearance 20.36 ml/min; Glucose 168 mg/dL (74-106); Potassium 4.3 mmol/L (3.5-5.1); Sodium Level 132 mmol/L (136-145)
[2021-07-07] MEDS: Allopurinol 100 MG Tablet PO (08:25)
[2021-07-07] MEDS: Aspirin 81 MG TAB.CHEW PO ×2 (08:25→17:15)
[2021-07-07] MEDS: Multivitamins,Ther W-Minerals Tablet 1 TABLET PO (08:26)
[2021-07-07] MEDS: Folic Acid 1 MG Tablet PO ×2 (08:26→17:15)
[2021-07-07] MEDS: Insulin Lispro 100 UNIT/ML INSULN.PEN SC ×3 (08:28→17:17)
[2021-07-07] MEDS: oxyCODONE 5 MG Tablet 10 MG PO ×2 (08:35→19:44)
[2021-07-07] MEDS: Ondansetron ODT 4 MG Tablet PO (11:10)
[2021-07-07 11:21] LABS: Bedside Glucose 175 mg/dL (74-106)
[2021-07-07] MEDS: Tuberculin,Purif.prot.deriv. 50 TU/ML Vial 0.1 ML ID (11:57)
[2021-07-07 14:38] VITALS: BP 141/69; PULSE 75; RESP 16; TEMP 36.1; O2SAT 96
[2021-07-07 16:36] LABS: Bedside Glucose 228 mg/dL (74-106)
[2021-07-07] MEDS: Insulin Glargine-YFGN 100 UNIT/ML Pen 6 UNIT SC (21:47)
[2021-07-07] MEDS: Montelukast 10 MG Tablet PO (21:51)
[2021-07-07 21:56] LABS: Bedside Glucose 222 mg/dL (74-106)
[2021-07-08] MEDS: Senna/Docusate Sodium 1 Tablet PO ×2 (05:02→17:45)
[2021-07-08] MEDS: Polyethylene Glycol 3350 17 GM PACKET PO (05:02)
[2021-07-08] MEDS: Losartan Potassium 25 MG Tablet PO (05:02)
[2021-07-08] MEDS: Cholecalciferol (VIT D3) 25 MCG TABLET (1,000 UNITS) PO (05:02)
[2021-07-08] MEDS: Levothyroxine 100 MCG Tablet PO (05:02)
[2021-07-08] MEDS: Furosemide 40 MG Tablet PO (05:02)
[2021-07-08] MEDS: Menthol/Lanolin/Calamine/Znox 113 GM Tube 1 APPLIC TOPICAL ×2 (05:03→17:44)
[2021-07-08] MEDS: Nystatin Powder 15gm Bottle 1 APPLIC TOPICAL ×2 (05:03→17:44)
[2021-07-08] MEDS: Fluticasone 0.05% 1 SPRAY NASAL.SRY 2 SPRAY NASAL (05:04)
[2021-07-08 06:41] LABS: Bedside Glucose 154 mg/dL (74-106)
[2021-07-08 07:35] LABS: Anion Gap 6 (5-15); BUN 46 mg/dL (7-18); BUN/Creat Ratio 31.3 RATIO (10-20); Calcium,Total 8.5 mg/dL (8.5-10.1); Chloride 100 mmol/L (98-107); Creatinine, Serum 1.47 mg/dL (0.55-1.02); EST Glomerular Filtration Rate 36 mL/min (>60); Est Glom Filt Rate - Afr Amer 43 mL/min (>60); Estimated Creatinine Clearance 21.32 ml/min; Glucose 164 mg/dL (74-106); Potassium 4.6 mmol/L (3.5-5.1); Sodium Level 135 mmol/L (136-145)
[2021-07-08] MEDS: Folic Acid 1 MG Tablet PO ×2 (07:59→17:42)
[2021-07-08] MEDS: oxyCODONE 5 MG Tablet 10 MG PO ×3 (07:59→18:20)
[2021-07-08] MEDS: Aspirin 81 MG TAB.CHEW PO ×2 (07:59→17:42)
[2021-07-08] MEDS: Allopurinol 100 MG Tablet PO (07:59)
[2021-07-08] MEDS: Multivitamins,Ther W-Minerals Tablet 1 TABLET PO (07:59)
[2021-07-08] MEDS: Insulin Lispro 100 UNIT/ML INSULN.PEN SC ×3 (08:00→17:42)
[2021-07-08 11:06] LABS: Bedside Glucose 203 mg/dL (74-106)
[2021-07-08 16:00] VITALS: BP 155/58; PULSE 72; RESP 16; TEMP 36.2; O2SAT 96
[2021-07-08 17:06] LABS: Bedside Glucose 201 mg/dL (74-106)
[2021-07-08] MEDS: Insulin Glargine-YFGN 100 UNIT/ML Pen 6 UNIT SC (21:56)
[2021-07-08] MEDS: Montelukast 10 MG Tablet PO (21:57)
[2021-07-08 23:01] LABS: Bedside Glucose 182 mg/dL (74-106)
[2021-07-09] MEDS: Furosemide 40 MG Tablet PO (06:02)
[2021-07-09] MEDS: Senna/Docusate Sodium 1 Tablet PO ×2 (06:02→17:10)
[2021-07-09] MEDS: Levothyroxine 100 MCG Tablet PO (06:02)
[2021-07-09] MEDS: Cholecalciferol (VIT D3) 25 MCG TABLET (1,000 UNITS) PO (06:02)
[2021-07-09] MEDS: Polyethylene Glycol 3350 17 GM PACKET PO (06:03)
[2021-07-09] MEDS: Menthol/Lanolin/Calamine/Znox 113 GM Tube 1 APPLIC TOPICAL ×2 (06:03→17:11)
[2021-07-09] MEDS: Nystatin Powder 15gm Bottle 1 APPLIC TOPICAL ×2 (06:03→17:11)
[2021-07-09] MEDS: Losartan Potassium 25 MG Tablet PO (06:03)
[2021-07-09] MEDS: Fluticasone 0.05% 1 SPRAY NASAL.SRY 2 SPRAY NASAL (06:04)
[2021-07-09 06:37] LABS: Bedside Glucose 115 mg/dL (74-106)
[2021-07-09] MEDS: Insulin Lispro 100 UNIT/ML INSULN.PEN SC ×3 (08:15→17:12)
[2021-07-09] MEDS: Allopurinol 100 MG Tablet PO (08:17)
[2021-07-09] MEDS: Multivitamins,Ther W-Minerals Tablet 1 TABLET PO (08:17)
[2021-07-09] MEDS: Folic Acid 1 MG Tablet PO ×2 (08:17→17:11)
[2021-07-09] MEDS: Aspirin 81 MG TAB.CHEW PO ×2 (08:17→17:10)
[2021-07-09] MEDS: Ondansetron ODT 4 MG Tablet PO (08:18)
--- NOTE | 2021-07-09 08:23 | NURSING ---
THIS NURSE INTO PT ROOM AND FOUND PT [employer] TRANSFERRING PT FROM [facility] TO [facility]. EXPLAINED TO ENGRAVER AUTOMAT[employer] THAT ONLY STAFF IS ALLOWED TO TRANSFER PT UNLESS ITS OK'D BY THERAPY AND TO USE CALL [facility] IF NEEDING HELP. ENGRAVER [employer]OM[employer] UNDER STOOD AND STATED SORRY. RN AWARE
--- NOTE | 2021-07-09 09:37 | CASEMGMT ---
Social Work Met with patient for initial assessment. Introduced self and role. Discussed code status and MOLST form. Pt confirms DNR-CCA, no intubation. MOLST form communicated to , placed in chart. Explained [employer] insurance with NRD 07/09 and continued stay is not guaranteed with each review. The goal is for pt to return home living with dtr, Julia. Pt has 3 dtrs and 1 son. Pt states dtrLizzy is POA, to be primary contact. Julia to be secondary contact. 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 SW to continue to follow for DC plans. Raquel Mariano, [employer] WORKFLOW CONSULTANT AESTHETICS INSTRUCTOR
--- NOTE | 2021-07-09 10:19 | NURSING ---
THIS NURSE ASKED PT IF SHE WOULD LIKE A COVID SHOT. PT STATED NO,SHE DID NOT WANT ANY. EXPLAINED TO PT SHE WOULD BE IN QUARANTINE DUE TO NO SHOTS. PT STATED SHE UNDER STOOD. RN AWARE.
[2021-07-09 11:31] LABS: Bedside Glucose 165 mg/dL (74-106)
[2021-07-09] MEDS: oxyCODONE 5 MG Tablet 10 MG PO ×3 (13:35→22:35)
[2021-07-09 13:45] VITALS: PULSE 96; RESP 18; O2SAT 93
[2021-07-09 14:49] VITALS: BP 140/62; PULSE 72; RESP 16; TEMP 36.4; O2SAT 98
[2021-07-09 16:35] LABS: Bedside Glucose 248 mg/dL (74-106)
[2021-07-09 22:00] LABS: Bedside Glucose 285 mg/dL (74-106)
[2021-07-09] MEDS: Insulin Glargine-YFGN 100 UNIT/ML Pen 6 UNIT SC (22:31)
[2021-07-09] MEDS: Montelukast 10 MG Tablet PO (22:32)
--- NOTE | 2021-07-10 05:38 | NURSING ---
Per patient, she does not want her medications at this time. They have been making her sick. Offered patient crackers and she replied, No Pharmacy notified to change times on medications.
[2021-07-10] MEDS: Levothyroxine 100 MCG Tablet PO (05:48)
[2021-07-10 06:41] LABS: Bedside Glucose 162 mg/dL (74-106)
[2021-07-10] MEDS: Aspirin 81 MG TAB.CHEW PO ×2 (08:54→17:45)
[2021-07-10] MEDS: Fluticasone 0.05% 1 SPRAY NASAL.SRY 2 SPRAY NASAL (08:54)
[2021-07-10] MEDS: Menthol/Lanolin/Calamine/Znox 113 GM Tube 1 APPLIC TOPICAL ×2 (08:59→17:51)
[2021-07-10] MEDS: Multivitamins,Ther W-Minerals Tablet 1 TABLET PO (08:59)
[2021-07-10] MEDS: Folic Acid 1 MG Tablet PO ×2 (08:59→17:45)
[2021-07-10 09:00] VITALS: BP 105/42; PULSE 79
[2021-07-10] MEDS: Polyethylene Glycol 3350 17 GM PACKET PO (09:00)
[2021-07-10] MEDS: Allopurinol 100 MG Tablet PO (09:00)
[2021-07-10] MEDS: Cholecalciferol (VIT D3) 25 MCG TABLET (1,000 UNITS) PO (09:00)
[2021-07-10] MEDS: Senna/Docusate Sodium 1 Tablet PO ×2 (09:00→17:45)
[2021-07-10] MEDS: Nystatin Powder 15gm Bottle 1 APPLIC TOPICAL ×2 (09:02→17:51)
[2021-07-10] MEDS: Insulin Lispro 100 UNIT/ML INSULN.PEN SC ×3 (09:05→17:44)
[2021-07-10] MEDS: Ondansetron ODT 4 MG Tablet PO (10:55)
[2021-07-10 10:56] LABS: Bedside Glucose 202 mg/dL (74-106)
[2021-07-10 11:00] VITALS: BP 138/49; PULSE 71
--- NOTE | 2021-07-10 13:08 | PCM.PN.RX ---
Progress Note - Pharmacy Subjective: [86yof admitted to [facility] 07/04/21-07/06/21 for R shoulder injury with hematoma after fall now admitted to TCU for debility and need for strength/conditioning.] Objective: Allergies shellfish derived Allergy (Severe, Verified 07/04/21 16:21) Anaphylaxis hydrochlorothiazide [From Prinzide] Allergy (Verified 07/04/21 16:21) Unknown Iodinated Contrast Media [Iodinated Contrast Media - IV Dye] Allergy (Verified 07/04/21 16:21) Anaphylaxis lisinopril [From Prinzide] Allergy (Verified 07/04/21 16:21) Unknown neomycin [Neomycin] Allergy (Verified 07/04/21 16:21) Unknown guaifenesin [From Mucinex] Adverse Reaction (Severe, Verified 07/06/21 16:04) PT UNSURE OF REACTION Current Medications Generic Name Dose Route Start Last Admin Trade Name Freq PRN Reason Stop Dose Admin Acetaminophen 1,000 mg 07/06/21 16:09 Acetaminophen 500 Mg Tablet PO Q6H PRN PRN Pain Score 1-5 Allopurinol 100 mg 07/07/21 08:00 07/10/21 09:00 Allopurinol 100 Mg Tablet PO 100 mg DAILYCM [facility] Administration Aspirin 81 mg 07/06/21 17:00 07/10/21 08:54 Aspirin 81 Mg Tab.Chew PO 81 mg BIDCM [facility] Administration Bisacodyl 10 mg 07/06/21 16:08 Bisacodyl 5 Mg Tablet PO DAILY PRN Constipation Calamine/Phenol 1 applic 07/10/21 08:00 07/10/21 08:59 Menthol/Lanolin/Calamine/Znox 113 Gm Tube TOPICAL 1 applic 0800,1800 W[facility]TER Administration Protocol Cholecalciferol 25 mcg 07/10/21 08:00 07/10/21 09:00 Cholecalciferol (Vit D3) 25 Mcg Tablet (1,000 Units) PO 25 mcg 0800 [facility] Administration Famotidine 20 mg 07/06/21 15:54 Famotidine 20 Mg Tablet PO DAILY PRN upset stomach/ GERD Fluticasone Propionate 2 spray 07/10/21 08:00 07/10/21 08:54 Fluticasone 0.05% 1 [place] Nasal.Sry NASAL 2 spray 0800 [facility] Administration Folic Acid 1 mg 07/06/21 17:00 07/10/21 08:59 Folic Acid 1 Mg Tablet PO 1 mg BIDCM [facility] Administration Furosemide 40 mg 07/10/21 08:00 07/10/21 09:02 Furosemide 40 Mg Tablet PO Not Given 0800 [facility] Insulin Human Lispro 4 unit 07/06/21 17:00 07/10/21 12:06 Insulin Lispro 100 Unit/Ml Insuln.Pen SC 4 units 0800,1200,1700 [facility] Administration Levothyroxine Sodium 100 mcg 07/07/21 06:00 07/10/21 05:48 Levothyroxine 100 Mcg Tablet PO 100 mcg DAILY [facility] Administration Lorazepam 0.5 mg 07/06/21 15:29 Lorazepam 0.5 Mg Tablet PO Q12H PRN PRN ANXIETY Losartan Potassium 25 mg 07/10/21 08:00 07/10/21 09:02 Losartan Potassium 25 Mg Tablet PO Not Given 0800 [facility] Meclizine HCl 12.5 mg 07/06/21 15:29 Meclizine 12.5 Mg Tablet PO BID PRN PRN Dizziness Melatonin 3 mg 07/06/21 15:29 Melatonin 3 Mg Tablet PO QHS PRN PRN Insomnia Montelukast Sodium 10 mg 07/06/21 22:00 07/09/21 22:32 Montelukast 10 Mg Tablet PO 10 mg QHS [facility] Administration Multivitamins/Minerals 1 tablet 07/07/21 08:00 07/10/21 08:59 Multivitamins,Ther W-Minerals Tablet [facility] Administration Nystatin 1 applic 07/10/21 08:00 07/10/21 09:02 Nystatin Powder 15gm Bottle TOPICAL 1 applic 0800,1800 [facility] Administration Protocol Ondansetron HCl 4 mg 07/06/21 15:29 07/10/21 10:55 Ondansetron Odt 4 Mg Tablet PO 4 mg Q8H PRN Administration nausea and vomiting Oxycodone HCl 10 mg 07/06/21 16:09 07/09/21 22:35 Oxycodone 5 Mg Tablet PO 10 mg Q4H PRN PRN Administration Pain Score 6-10 Polyethylene Glycol 17 gm 07/10/21 08:00 07/10/21 09:00 Polyethylene Glycol 3350 17 Gm Packet PO 17 gm 0800 [facility] Administration Senna/Docusate Sodium 1 tablet 07/10/21 08:00 07/10/21 09:00 Senna/Docusate Sodium 1 Tablet PO 1 tablet 0800,1800 [facility] Administration Sodium Chloride 10 - 40 ml 07/06/21 15:51 07/06/21 18:43 0.9% Saline Lock 10 Ml Syringe IV 20 ml UD PRN Administration SALINE FLUSH Tuberculin PPD 0.1 ml 07/14/21 10:00 Tuberculin,Purif.Prot.Deriv. 50 Tu/Ml Vial ID 07/14/21 10:01 X1 ONE Problem List (Last Reviewed 07/06/21 @ 15:[address] Bryce Bey MD) Gastroesophageal reflux disease (Acute) Hypothyroidism (Acute) Hypertension (Chronic) Diabetes mellitus (Acute) Vitamin D deficiency (Acute) Allergic rhinitis (Acute) Chronic diastolic congestive heart failure (Chronic) Dizziness (Acute) Gout (Acute) Hematoma of right chest wall (Acute) Traumatic hematoma of right shoulder (Acute) Right shoulder pain (Acute) Right arm pain (Acute) Debility (Acute) Vital Signs Temp Pulse Resp BP Pulse Ox 97.6 F L 71 16 138/49 H 98 07/09/21 14:49 07/10/21 11:00 07/09/21 14:49 07/10/21 11:00 07/09/21 14:49 Oxygen Delivery Method Room Air Weight: 83.206 kg Body Mass Index (BMI) 33.5 Sodium 135 mmol/L (136-145) L 07/08/21 06:30 Potassium 4.6 mmol/L (3.5-5.1) 07/08/21 06:30 Chloride 100 mmol/L (98-107) 07/08/21 06:30 Carbon Dioxide 29.0 mmol/L (21.0-32.0) 07/08/21 06:30 Anion Gap 6 (5-15) 07/08/21 06:30 BUN 46 mg/dL (7-18) H 07/08/21 06:30 Creatinine 1.47 mg/dL (0.55-1.02) H 07/08/21 06:30 Est GFR (MDRD) Af Amer 43 mL/min (>60) L 07/08/21 06:30 Est GFR (MDRD) Non-Af 36 mL/min (>60) L 07/08/21 06:30 BUN/Creatinine Ratio 31.3 RATIO (10-20) H 07/08/21 06:30 Glucose 164 mg/dL (74-106) H 07/08/21 06:30 Assessment/Plan: 1. Pain secondary R shoulder injury - On APAP 1000mg po q6h prn pain 1-5 and oxycodone 10mg po q4h prn pain 6-10. Has not received any doses of acetaminophen, using 2-3 doses of oxycodone 10mg per day since admit. Review of pain scores pre- and post-administration of oxycodone show that oxycodone has benefit for pain. Continue to monitor pain scores and function, bowel movement. Pt also experiencing nausea, however, pt was taking oxycodone/APAP prior to admission for some time which makes oxycodone unlikely to be cause of nausea. Monitor pain scores and function, oxycodone use, mental status, bowel movement. Consider scheduling APAP 1gm po TID for multimodal analgesia. 2. CKD Stage 3 - Scr 1.47 (07/08/21) with eGFR ~36ml/min and CrCl ~35m/min based on ABW and ~20 ml/min based on IBW. Adjust doses of medications as needed for renal insufficiency. 3. DM2 - On insulin glargine 6 units qhs and insulin lispro 4 units with meals. BG have ranged from 114-285 with most in 160-220 range. BG are higher during daytime readings (lunch, supper, HS). Note that patient has been c/o nausea which may increase risk of hypoglycemia. If BG become further elevated, could consider small increase in lispro dose if nausea improved and po intake is good. Monitor blood sugar, po intake, sx of hyper/hypoglycemia. 4. Nausea/H/O GERD- On ondansetron 4mg po q8h prn nausea/vomiting and famotidine 20mg po daily prn upset stomach/GERD. Pt administered ondansetron on 07/07, 07/08 and 07/09 since admit. No famotidine used. Continue to monitor symptoms, po intake and prn use of ondansetron. May consider scheduling famotidine if GERD could potentially be etiology of nausea. Note that famotidine is renally cleared, consider decreasing dose to 10mg daily if medication is scheduled due to renal function. 5. H/O hypertension and diastolic heart failure - On furosemide 40mg po daily and losartan 25mg po daily. Note that losartan dose held on 07/09 for BP 105/42. BP has ranged from 105/42-155/58. Na = 135 and K=4.6 on 07/08/21. Monitor BP as well as symptoms of orthostasis, electrolytes, renal function and sx of CHF. 6. H/O gout - On allopurinol 100mg po daily. Dose appropriate for renal function. Monitor for exacerbation of gout, renal function. 7. H/O hypothyroidism - On levothyroxine 100mcg po daily. No recent change in dose per external medication history records. Monitor sx of lynne/hypothyroidism. 8. H/O dizziness with fall prior to inpatient admission - On meclizine 12.5mg po bid prn, pt has not used any doses since admission to TCU. Medications that could potentially increase the risk of falls include oxycodone, furosemide, losartan, insulin (only if 2/2 hypoglycemia). Pt has indication for each of these medications currently and benefit appears to outweigh risk at this time. Monitor dizziness and for falls. 9. Insomnia - On melatonin 3mg po qhs prn, has not used any doses since admission to TCU. Monitor sleep pattern, daytime sleepiness. 10. H/O allergic rhinitis - On montelukast 10mg po daily and fluticasone nasal spray daily. Monitor for runny/itchy nose. 11. Nutrition - On folic acid 1mg po daily, MVI daily and cholecalciferol 25mcg daily. Monitor po intake, body weight. Consider albumin/prealbumin if clinically indicated. 12. DVT Px - On ASA 81mg po daily, pt with recent hematoma to anticoagulants avoided at this time. Hgb 9.1 on 07/07 (consistent with older labs). Monitor sx of bleeding as well as VTE. 13. Skin integrity - On calmoseptine topically bid. Monitor skin integrity, erythema/irritation, sx of infection. 14. Tinea corporis - On nystatin powder topically bid under R breast/axillary region. Monitor for skin breakdown, erythema/weeping, sx of infection. Psychotropic Medications: Initiated on lorazepam 0.5mg po [id number] prn anxiety during recent inpatient admission bc pt experiencing dyspnea thought 2/2 anxiety. Pt has not used any doses of lorazepam since admission to TCU. Consider GDR (twice within 1st year), especially if patient not using medication regularly. Unnecessary Medications: None Bowel Regimen: On PEG 17gm po daily, Senna-S 1 tab po bid and bisacodyl 10mg po daily prn. No doses of bisacodyl used since admission. Monitor bowel movement, sx of constipation/diarrhea. Date of Note:: 07/10/21
--- NOTE | 2021-07-10 15:39 | NURSING ---
Pt daughter in today and reports that pt had been having left lower back pain and it has now seem to have spread to left hip and down left leg, Dr. Bey updated.
[2021-07-10 16:00] VITALS: BP 140/49; PULSE 92; RESP 16; TEMP 36.4; O2SAT 94
[2021-07-10 16:21] LABS: Bedside Glucose 267 mg/dL (74-106)
--- NOTE | 2021-07-10 16:56 | RAD_ITS ---
INDICATION: Left hip pain EXAMINATION/TECHNIQUE: X-RAY - XR Hip Unilateral with Pelvis when performed; 2-3 Views 3 IMAGES COMPARISON: None. LIMITATIONS: None. FINDINGS: BONES: There is irregularity at the femoral neck which is suspicious for acute nondisplaced fracture although ring of osteophytes could have a similar appearance. Degenerative changes at both hips. Surgical hardware in the lower lumbar spine. JOINTS: No dislocation. SOFT TISSUES: Unremarkable. IMPRESSION: Questionable acute fracture left femoral neck versus ring of osteophytes/degenerative. CT may be helpful if clinically indicated. Electronically Signed: Yajaira Singleton MD at 3:19 EDT , RAD/HIP, UNI W/ Pelvis 2-3 Views
--- NOTE | 2021-07-10 16:56 | RAD_ITS ---
STUDY: X-RAY - LEFT TIBIA AND FIBULA REASON FOR EXAM: Female, 86 years old. Pain TECHNIQUE: 2 view(s) of the tibia and fibula were obtained. COMPARISON: None. FINDINGS: Normal visualized tibia. Normal visualized fibula. Bipartite patella or old patellar fracture. Severe degenerative changes of the knee. Vascular and dermal calcifications. RAD/Tibia & Fibula 2 Views IMPRESSION: No acute disease. Incidental findings as above. Electronically Signed: Keron Green MD at 23:22 EDT ,
--- NOTE | 2021-07-10 16:56 | RAD_ITS ---
STUDY: X-RAY - LUMBAR SPINE REASON FOR EXAM: Female, 86 years old. Left back pain TECHNIQUE: 2 view(s) of the lumbar spine were obtained. COMPARISON: None FINDINGS: There is reversal of the normal lumbar lordosis. There is no substantial scoliosis. Vertebral bodies are normal in height. Large osteophytes are noted anteriorly. There is diffuse demineralization with multi-level endplate spondylosis. There is multi-level degenerative disc disease with multi-level disc space narrowing. Posterior interbody fusion rods and pedicular screws with laminectomies L3-L4 and L5. The soft tissue structures are unremarkable. RAD/Lumbar Spine 2 or 3 Views IMPRESSION: Posterior interbody fusion L3-L5. Severe spondylosis and multilevel degenerative disc disease. Demineralization limits sensitivity. Electronically Signed: Keron Green MD at 23:31 EDT ,
--- NOTE | 2021-07-10 17:15 | RAD_ITS ---
STUDY: X-RAY - LEFT KNEE REASON FOR EXAM: Female, 86 years old. Pain TECHNIQUE: 3 view(s) of the knee. COMPARISON: None. FINDINGS: Normal visualized distal femur. Normal visualized proximal tibia and fibula. Normal proximal tibiofibular articulation. There is severe degenerative arthrosis of the medial femorotibial compartment with severe joint space narrowing. There is severe degenerative arthrosis of the lateral femorotibial compartment with severe joint space narrowing. There is severe degenerative arthrosis of the patellofemoral articulation. Ossific density superior to the patella Vascular calcifications. RAD/Knee 3 Views IMPRESSION: Severe DJD. Large spur or enthesopathy quadriceps tendon. Electronically Signed: Keron Green MD at 23:26 EDT ,
[2021-07-10] MEDS: oxyCODONE 5 MG Tablet 10 MG PO ×2 (17:47→22:12)
[2021-07-10 21:25] LABS: Bedside Glucose 249 mg/dL (74-106)
[2021-07-10] MEDS: Insulin Glargine-YFGN 100 UNIT/ML Pen 6 UNIT SC (22:04)
[2021-07-10] MEDS: Montelukast 10 MG Tablet PO (22:04)
[2021-07-10 22:13] VITALS: PULSE 87; RESP 16; O2SAT 98
[2021-07-11] MEDS: Levothyroxine 100 MCG Tablet PO (05:26)
[2021-07-11 06:36] LABS: Bedside Glucose 138 mg/dL (74-106)
--- NOTE | 2021-07-11 07:09 | NURSING ---
Patient states she is unable to use bedpan and request that she be transferred to bedside commode. Patient aware we are waiting on Dr. Bey to review X-ray results.
[2021-07-11] MEDS: Insulin Lispro 100 UNIT/ML INSULN.PEN SC ×3 (08:08→17:21)
[2021-07-11 08:10] VITALS: BP 121/32
[2021-07-11] MEDS: Fluticasone 0.05% 1 SPRAY NASAL.SRY 2 SPRAY NASAL (08:12)
[2021-07-11] MEDS: Aspirin 81 MG TAB.CHEW PO ×2 (08:38→17:24)
[2021-07-11] MEDS: Multivitamins,Ther W-Minerals Tablet 1 TABLET PO (08:38)
[2021-07-11] MEDS: Allopurinol 100 MG Tablet PO (08:39)
[2021-07-11] MEDS: Polyethylene Glycol 3350 17 GM PACKET PO (08:39)
[2021-07-11] MEDS: Folic Acid 1 MG Tablet PO ×2 (08:39→17:23)
[2021-07-11] MEDS: Cholecalciferol (VIT D3) 25 MCG TABLET (1,000 UNITS) PO (08:39)
[2021-07-11] MEDS: Senna/Docusate Sodium 1 Tablet PO ×2 (08:39→17:24)
[2021-07-11] MEDS: Menthol/Lanolin/Calamine/Znox 113 GM Tube 1 APPLIC TOPICAL ×2 (08:41→17:30)
[2021-07-11] MEDS: Nystatin Powder 15gm Bottle 1 APPLIC TOPICAL ×2 (08:43→17:30)
[2021-07-11] MEDS: 0.9% Normal Saline 1,000 ML 999 ML IV (09:10)
--- NOTE | 2021-07-11 09:31 | NURSING ---
N.O. CT without contrast to left hip, BP 121/32 to left arm with monitor rechecked via manual cuff and was 124/36. Pt asymptomatic at this time, Dr. Bey updated and N.O. 1 Liter, IV NS bolus, d/c Cozaar and Lasix.
[2021-07-11 09:45] VITALS: BP 124/36
[2021-07-11] MEDS: 0.9% Saline Lock 10 ML Syringe IV (10:20)
[2021-07-11 10:30] VITALS: BP 158/66
[2021-07-11 11:06] LABS: Bedside Glucose 241 mg/dL (74-106)
--- NOTE | 2021-07-11 11:16 | CASEMGMT ---
Social Work IDT met with patient and daughter for care plan meeting. Discussed patient's progress in PT/OT and nursing. ST evaled but pt scored 28/30 on SLUMS thus identifying to major cognitive issues. Pt lives at home with dtr. Dtr's assist with IADLs. Pt has SHEEP STICKER during the day to assist with ADLs. Encouraged for aide to complete therapy training to plan for DC home. Dtr agreeable. Explained [employer] insurance with NRD 07/12 and continued stay is not guaranteed. The goal is for pt to return home with previous assistance. SW to continue to follow for DC planning. Raquel Mariano, RESIDENT CARE TECHNICIAN BUSINESS INSURANCE AGENT
--- NOTE | 2021-07-11 11:41 | NURSING ---
pt off unit to CT scan at this time, preauth obtained.
--- NOTE | 2021-07-11 13:30 | NURSING ---
Addendum entered by Kellen Hopkins 07/11/21 18:06: dr urias in, new order to consult dr Hester regarding LT hip herniation to anterior femoral neck. Original Note: Dr urias updated on CT scan of LT hip, no fracture. no new orders at this time, continue plan of care
[2021-07-11] MEDS: oxyCODONE 5 MG Tablet 10 MG PO ×2 (13:46→21:21)
--- NOTE | 2021-07-11 14:09 | NURSING ---
Daughter Dulce updated on CT
--- NOTE | 2021-07-11 15:16 | CHAPLAIN ---
Type of Pastoral Visit _x__ Initial Visit ___ Follow-up Visit ___ On-call Visit ___ General Patient Visit ___ Spiritual Assessment ___ Family Conference ___ Bereavement ___ Rapid Response ___ Code Blue ___ Other (describe below) Pastoral Care Referral From _x__ Patient ___ Family ___ Nurse ___ Physician ___ Design Printing Machine Setter ___ Analytical Chemistry Teacher ___ Other (describe below) Sacrament/Intervention _x__ Active listening ___ Anointing ___ Anabaptist ___ Bereavement ___ Communion _x__ Anali exploration ___ _x__ Life review _x__ Prayer ___ Reconciliation ___ Sacrament of Sick _x__ Supportive presence ___ Wedding ___ Other (describe below) Pastoral Comments long talk with patient as she gives many details about her life, her physical limitations, and the of her ; tears come when she speaks of her 's short but terminal illness in 2019; pt is a person of anali but unable to attend quaker services any more; pt welcomes the prayer; pt requests more visits as possible
[2021-07-11 15:35] VITALS: BP 165/78; PULSE 86; RESP 15; TEMP 36.2; O2SAT 92
[2021-07-11 16:18] VITALS: BP 152/60
[2021-07-11 16:20] LABS: Bedside Glucose 147 mg/dL (74-106)
[2021-07-11] MEDS: Montelukast 10 MG Tablet PO (20:26)
[2021-07-11] MEDS: Insulin Glargine-YFGN 100 UNIT/ML Pen 6 UNIT SC (21:21)
[2021-07-11 21:30] LABS: Bedside Glucose 203 mg/dL (74-106)
[2021-07-12] MEDS: Levothyroxine 100 MCG Tablet PO (05:30)
[2021-07-12 06:21] LABS: Bedside Glucose 103 mg/dL (74-106)
[2021-07-12] MEDS: oxyCODONE 5 MG Tablet 10 MG PO ×2 (07:56→17:42)
[2021-07-12] MEDS: Folic Acid 1 MG Tablet PO ×2 (07:58→17:37)
[2021-07-12] MEDS: Multivitamins,Ther W-Minerals Tablet 1 TABLET PO (07:58)
[2021-07-12] MEDS: Cholecalciferol (VIT D3) 25 MCG TABLET (1,000 UNITS) PO (07:58)
[2021-07-12] MEDS: Senna/Docusate Sodium 1 Tablet PO ×2 (07:58→17:37)
[2021-07-12] MEDS: Aspirin 81 MG TAB.CHEW PO ×2 (07:59→17:37)
[2021-07-12] MEDS: Fluticasone 0.05% 1 SPRAY NASAL.SRY 2 SPRAY NASAL (07:59)
[2021-07-12] MEDS: Allopurinol 100 MG Tablet PO (07:59)
[2021-07-12] MEDS: Polyethylene Glycol 3350 17 GM PACKET PO (08:00)
[2021-07-12] MEDS: Insulin Lispro 100 UNIT/ML INSULN.PEN SC ×3 (08:04→17:38)
--- NOTE | 2021-07-12 08:20 | OT ---
child caregiver private home transfer training complete. child caregiver private home may transfer pt for toileting
[2021-07-12] MEDS: Nystatin Powder 15gm Bottle 1 APPLIC TOPICAL ×2 (09:45→17:38)
[2021-07-12] MEDS: Menthol/Lanolin/Calamine/Znox 113 GM Tube 1 APPLIC TOPICAL ×2 (09:45→17:37)
--- NOTE | 2021-07-12 10:12 | NURSING ---
This nurse spoke with Trevon CASILLAS today regarding left hip herniated pit, he stated that and Dr. Cruz and himself reviewed CT and stated that they see nothing acute, pt is ok to remain WBAT, no interventions needed at this time. Consult discontinued d/t no need for further intervention
[2021-07-12 11:15] LABS: Bedside Glucose 200 mg/dL (74-106)
[2021-07-12 13:44] VITALS: BP 149/74; PULSE 76; RESP 16; TEMP 36.8; O2SAT 98
[2021-07-12 15:40] LABS: Bedside Glucose 180 mg/dL (74-106)
--- NOTE | 2021-07-12 16:00 | MDS.RN ---
Pain interview for EMILE 07/13/21
[2021-07-12] MEDS: 0.9% Saline Lock 10 ML Syringe IV (17:40)
[2021-07-12] MEDS: Montelukast 10 MG Tablet PO (21:39)
[2021-07-12] MEDS: Insulin Glargine-YFGN 100 UNIT/ML Pen 6 UNIT SC (21:40)
[2021-07-12 21:50] LABS: Bedside Glucose 243 mg/dL (74-106)
[2021-07-12 22:00] VITALS: PULSE 76; O2SAT 97
[2021-07-13] MEDS: Levothyroxine 100 MCG Tablet PO (05:26)
[2021-07-13 06:21] LABS: Bedside Glucose 177 mg/dL (74-106)
[2021-07-13] MEDS: Folic Acid 1 MG Tablet PO ×2 (08:58→16:38)
[2021-07-13] MEDS: Aspirin 81 MG TAB.CHEW PO ×2 (08:58→16:37)
[2021-07-13] MEDS: Cholecalciferol (VIT D3) 25 MCG TABLET (1,000 UNITS) PO (08:58)
[2021-07-13] MEDS: Insulin Lispro 100 UNIT/ML INSULN.PEN SC ×3 (08:59→17:57)
[2021-07-13] MEDS: Senna/Docusate Sodium 1 Tablet PO (08:59)
[2021-07-13] MEDS: Multivitamins,Ther W-Minerals Tablet 1 TABLET PO (08:59)
[2021-07-13] MEDS: Menthol/Lanolin/Calamine/Znox 113 GM Tube 1 APPLIC TOPICAL ×2 (09:03→16:36)
[2021-07-13] MEDS: Nystatin Powder 15gm Bottle 1 APPLIC TOPICAL ×2 (09:04→16:36)
[2021-07-13] MEDS: Allopurinol 100 MG Tablet PO (09:04)
[2021-07-13] MEDS: Fluticasone 0.05% 1 SPRAY NASAL.SRY 2 SPRAY NASAL (09:05)
[2021-07-13 09:45] VITALS: PULSE 75; RESP 18; O2SAT 98
[2021-07-13] MEDS: oxyCODONE 5 MG Tablet 10 MG PO ×3 (09:45→22:29)
[2021-07-13 11:21] LABS: Bedside Glucose 207 mg/dL (74-106)
[2021-07-13 14:43] VITALS: BP 157/52; PULSE 83; RESP 16; TEMP 36.3; O2SAT 97
--- NOTE | 2021-07-13 16:14 | CASEMGMT ---
Social Work BIMS and PHQ-9 completed for MDS assessment. Raquel Mariano, TRANSPORTATION EQUIPMENT PAINTER FIELD CROP FARMING SUPERVISOR
[2021-07-13 16:15] LABS: Bedside Glucose 158 mg/dL (74-106)
[2021-07-13 22:21] LABS: Bedside Glucose 284 mg/dL (74-106)
[2021-07-13] MEDS: MELATONIN 3 MG TABLET PO (22:29)
[2021-07-13] MEDS: Montelukast 10 MG Tablet PO (22:30)
[2021-07-13] MEDS: Insulin Glargine-YFGN 100 UNIT/ML Pen 6 UNIT SC (22:32)
[2021-07-14] MEDS: Levothyroxine 100 MCG Tablet PO (05:05)
[2021-07-14 07:25] LABS: Bedside Glucose 129 mg/dL (74-106)
[2021-07-14 07:57] LABS: Absolute Lymphocyte Count 0.94 X10^3/uL (0.83-4.51); Absolute Neutrophil Count 4.3 X10^3/uL (2.0-7.7); Basophil# 0.04 X10^3/uL; Basophil% 0.6 % (0-1); Eosinophil# 0.29 X10^3/uL; Eosinophils% 4.6 % (0-5); Hemoglobin 7.7 g/dL (12.0-15.0); Lymphocyte # 0.94 X10^3/ul (0.83-4.51); Lymphocyte % 14.9 % (19-41); Mean Corp Hgb Conc 32.1 g/dL (32-36); Mean Corpuscular Hgb 30.3 pg (27.0-32.0); Mean Corpuscular Volume 94.5 fL (81-99); Mean Platelet Vol. 9.7 fl (6.2-12.0); Monocyte# 0.73 X10^3/uL; Monocyte% 11.6 % (0-10); NRBC Flagged by Analyzer 0 % (0-5); Neutrophil # 4.27 X10^3/uL (2.7-7.7); Platelet Count 297 K/mm3 (150-450); RBC Distribution Width CV 13.7 % (11.6-14.6); RBC Distribution Width SD 46.8 fl (35.1-43.9); Red Blood Count 2.54 M/mm3 (4.2-5.4); White Blood Count 6.3 K/mm3 (4.4-11.0)
[2021-07-14] MEDS: Insulin Lispro 100 UNIT/ML INSULN.PEN SC ×3 (08:03→17:30)
[2021-07-14] MEDS: Fluticasone 0.05% 1 SPRAY NASAL.SRY 2 SPRAY NASAL (08:04)
[2021-07-14] MEDS: Aspirin 81 MG TAB.CHEW PO (08:05)
[2021-07-14] MEDS: Folic Acid 1 MG Tablet PO ×2 (08:06→17:31)
[2021-07-14] MEDS: Cholecalciferol (VIT D3) 25 MCG TABLET (1,000 UNITS) PO (08:07)
[2021-07-14] MEDS: Senna/Docusate Sodium 1 Tablet PO ×2 (08:07→17:32)
[2021-07-14] MEDS: Multivitamins,Ther W-Minerals Tablet 1 TABLET PO (08:07)
[2021-07-14] MEDS: Allopurinol 100 MG Tablet PO (08:08)
[2021-07-14] MEDS: oxyCODONE 5 MG Tablet 10 MG PO ×3 (08:11→21:31)
[2021-07-14 08:20] LABS: Anion Gap 3 (5-15); BUN 29 mg/dL (7-18); Calcium,Total 8.9 mg/dL (8.5-10.1); Chloride 105 mmol/L (98-107); Creatinine, Serum 1.21 mg/dL (0.55-1.02); EST Glomerular Filtration Rate 45 mL/min (>60); Est Glom Filt Rate - Afr Amer 54 mL/min (>60); Estimated Creatinine Clearance 25.91 ml/min; Glucose 133 mg/dL (74-106); Sodium Level 136 mmol/L (136-145)
[2021-07-14] MEDS: Nystatin Powder 15gm Bottle 1 APPLIC TOPICAL ×2 (08:21→18:46)
[2021-07-14] MEDS: Menthol/Lanolin/Calamine/Znox 113 GM Tube 1 APPLIC TOPICAL ×2 (08:22→18:46)
[2021-07-14] MEDS: Pantoprazole Sodium 40 MG Tablet PO (09:46)
[2021-07-14] MEDS: Tuberculin,Purif.prot.deriv. 50 TU/ML Vial 0.1 ML ID (10:03)
[2021-07-14 11:56] LABS: Bedside Glucose 128 mg/dL (74-106)
[2021-07-14 13:46] VITALS: BP 128/35; PULSE 71; RESP 16; TEMP 36.3; O2SAT 95
[2021-07-14 16:06] LABS: Bedside Glucose 198 mg/dL (74-106)
[2021-07-14 21:26] LABS: Bedside Glucose 181 mg/dL (74-106)
[2021-07-14] MEDS: Montelukast 10 MG Tablet PO (21:30)
[2021-07-14] MEDS: MELATONIN 3 MG TABLET PO (21:30)
[2021-07-14] MEDS: Insulin Glargine-YFGN 100 UNIT/ML Pen 6 UNIT SC (21:32)
[2021-07-14 21:35] VITALS: O2SAT 93
[2021-07-15] MEDS: Acetaminophen 500 MG Tablet 1000 MG PO ×2 (00:36→17:53)
[2021-07-15] MEDS: oxyCODONE 5 MG Tablet 10 MG PO ×3 (01:31→22:22)
[2021-07-15] MEDS: Levothyroxine 100 MCG Tablet PO (05:38)
[2021-07-15] MEDS: Pantoprazole Sodium 40 MG Tablet PO (05:38)
[2021-07-15 06:26] LABS: Bedside Glucose 107 mg/dL (74-106)
[2021-07-15 06:34] LABS: Absolute Lymphocyte Count 1.18 X10^3/uL (0.83-4.51); Basophil# 0.04 X10^3/uL; Basophil% 0.6 % (0-1); Eosinophil# 0.45 X10^3/uL; Eosinophils% 6.9 % (0-5); Hemoglobin 7.6 g/dL (12.0-15.0); Lymphocyte # 1.18 X10^3/ul (0.83-4.51); Lymphocyte % 18.2 % (19-41); Mean Corpuscular Hgb 30.9 pg (27.0-32.0); Mean Corpuscular Volume 93.5 fL (81-99); Mean Platelet Vol. 9.4 fl (6.2-12.0); Monocyte% 12.3 % (0-10); NRBC Flagged by Analyzer 0 % (0-5); Neutrophil # 3.99 X10^3/uL (2.7-7.7); Neutrophil % 61.7 % (47-70); Platelet Count 282 K/mm3 (150-450); RBC Distribution Width CV 13.4 % (11.6-14.6); RBC Distribution Width SD 46.1 fl (35.1-43.9); Red Blood Count 2.46 M/mm3 (4.2-5.4); White Blood Count 6.5 K/mm3 (4.4-11.0)
[2021-07-15] MEDS: Insulin Lispro 100 UNIT/ML INSULN.PEN SC ×3 (08:27→17:49)
[2021-07-15] MEDS: Menthol/Lanolin/Calamine/Znox 113 GM Tube 1 APPLIC TOPICAL ×2 (08:28→17:50)
[2021-07-15] MEDS: Fluticasone 0.05% 1 SPRAY NASAL.SRY 2 SPRAY NASAL (08:28)
[2021-07-15] MEDS: Folic Acid 1 MG Tablet PO ×2 (08:28→17:51)
[2021-07-15] MEDS: Senna/Docusate Sodium 1 Tablet PO ×2 (08:29→17:51)
[2021-07-15] MEDS: Cholecalciferol (VIT D3) 25 MCG TABLET (1,000 UNITS) PO (08:29)
[2021-07-15] MEDS: Multivitamins,Ther W-Minerals Tablet 1 TABLET PO (08:29)
[2021-07-15] MEDS: Allopurinol 100 MG Tablet PO (08:30)
[2021-07-15] MEDS: Nystatin Powder 15gm Bottle 1 APPLIC TOPICAL ×2 (08:30→21:24)
[2021-07-15] MEDS: Iron Polysaccharide Complex 150 MG CAPSULE PO (09:59)
[2021-07-15 10:00] VITALS: PULSE 70; RESP 18; O2SAT 95
[2021-07-15 10:51] LABS: Bedside Glucose 181 mg/dL (74-106)
--- NOTE | 2021-07-15 11:21 | NURSING ---
AFTER POLYSOMNOGRAPHIC TECHNOLOGIST LEFT PT STATED, SHE GETS ON MY NERVES SOME TIMES AND ISN'T VERY NICE BUT I PUT UP WITH IT. ASKED PT IF POLYSOMNOGRAPHIC TECHNOLOGIST HAS EVER HURT OR THREATEN HER PT STATED NO. ASKED PT IF HER FAMILY KNOWS HOW SHE IS TREATED BY POLYSOMNOGRAPHIC TECHNOLOGIST PT STATED YES BUT SHE IS ALL WE CAN AFFORD RIGHT NOW AND IS HELPFUL,SHE CAN BE NICE. RN AWARE
[2021-07-15 16:00] VITALS: BP 159/53; PULSE 54; RESP 18; TEMP 35.9; O2SAT 96
[2021-07-15 17:10] LABS: Bedside Glucose 148 mg/dL (74-106)
[2021-07-15] MEDS: Insulin Glargine-YFGN 100 UNIT/ML Pen 6 UNIT SC (21:24)
[2021-07-15] MEDS: Montelukast 10 MG Tablet PO (21:24)
[2021-07-15 21:35] LABS: Bedside Glucose 242 mg/dL (74-106)
[2021-07-15] MEDS: MELATONIN 3 MG TABLET PO (22:21)
[2021-07-16] MEDS: Acetaminophen 500 MG Tablet 1000 MG PO (00:01)
[2021-07-16] MEDS: Levothyroxine 100 MCG Tablet PO (05:18)
[2021-07-16] MEDS: Pantoprazole Sodium 40 MG Tablet PO (05:18)
[2021-07-16] MEDS: Iron Polysaccharide Complex 150 MG CAPSULE PO (05:19)
[2021-07-16 05:50] LABS: Hematocrit 22.3 % (37-47); Hemoglobin 7.1 g/dL (12.0-15.0)
[2021-07-16 06:26] LABS: Bedside Glucose 120 mg/dL (74-106)
[2021-07-16] MEDS: Insulin Lispro 100 UNIT/ML INSULN.PEN SC ×3 (08:56→17:24)
[2021-07-16] MEDS: Fluticasone 0.05% 1 SPRAY NASAL.SRY 2 SPRAY NASAL (08:56)
[2021-07-16] MEDS: Multivitamins,Ther W-Minerals Tablet 1 TABLET PO (08:57)
[2021-07-16] MEDS: Senna/Docusate Sodium 1 Tablet PO ×2 (08:57→17:24)
[2021-07-16] MEDS: Polyethylene Glycol 3350 17 GM PACKET PO (08:57)
[2021-07-16] MEDS: Folic Acid 1 MG Tablet PO ×2 (08:57→17:24)
[2021-07-16] MEDS: Cholecalciferol (VIT D3) 25 MCG TABLET (1,000 UNITS) PO (08:57)
[2021-07-16] MEDS: Allopurinol 100 MG Tablet PO (08:57)
[2021-07-16] MEDS: Menthol/Lanolin/Calamine/Znox 113 GM Tube 1 APPLIC TOPICAL ×2 (09:01→17:26)
[2021-07-16] MEDS: Nystatin Powder 15gm Bottle 1 APPLIC TOPICAL ×2 (09:03→17:27)
[2021-07-16 09:39] VITALS: BP 154/52; PULSE 81; RESP 16; TEMP 36.7; O2SAT 99
[2021-07-16] MEDS: oxyCODONE 5 MG Tablet 10 MG PO (09:42)
[2021-07-16] MEDS: Ondansetron ODT 4 MG Tablet PO (10:33)
--- NOTE | 2021-07-16 10:35 | NURSING ---
Consent for blood signed, orders and consent form faxed to infusion center. This nurse also called and spoke to staff in infusion center and updated on new orders, pt is to receive blood on 07/17/21 at 0800 in the infusion center. POA aware of new orders.
[2021-07-16 10:50] LABS: Bedside Glucose 178 mg/dL (74-106)
--- NOTE | 2021-07-16 10:56 | NURSING ---
Roustabout Head Note: interview completed and MDS section F completed for EMILE of 07/13/21
--- NOTE | 2021-07-16 11:29 | CASEMGMT ---
Social Work Followed up with pt from comments she made to PUPPET MASTER. Inquired about how pt feels about her home caregiver; if she felt comfortable, cared for, safe; if caregiver was nice, treated her well/with respect. Pt answered yes to all questions and stated she has no issues or concerns with caregiver. Encouraged to speak with family or this worker if that changes. Pt expressed understanding. Raquel Mariano, RIVER CROSSING SUPERVISOR LICENSED HOME INSPECTOR
[2021-07-16 16:20] LABS: Bedside Glucose 174 mg/dL (74-106)
[2021-07-16] MEDS: Insulin Glargine-YFGN 100 UNIT/ML Pen 6 UNIT SC (21:13)
[2021-07-16] MEDS: Montelukast 10 MG Tablet PO (21:13)
[2021-07-16 21:16] LABS: Bedside Glucose 283 mg/dL (74-106)
[2021-07-17] MEDS: Levothyroxine 100 MCG Tablet PO (05:05)
[2021-07-17] MEDS: Pantoprazole Sodium 40 MG Tablet PO (05:05)
[2021-07-17] MEDS: Iron Polysaccharide Complex 150 MG CAPSULE PO (05:05)
[2021-07-17 06:20] LABS: Bedside Glucose 148 mg/dL (74-106)
[2021-07-17] MEDS: Ondansetron ODT 4 MG Tablet PO (07:16)
[2021-07-17] MEDS: Folic Acid 1 MG Tablet PO ×2 (07:45→17:39)
[2021-07-17] MEDS: Senna/Docusate Sodium 1 Tablet PO ×2 (07:46→17:40)
[2021-07-17] MEDS: Cholecalciferol (VIT D3) 25 MCG TABLET (1,000 UNITS) PO (07:46)
[2021-07-17] MEDS: Multivitamins,Ther W-Minerals Tablet 1 TABLET PO (07:46)
[2021-07-17] MEDS: Allopurinol 100 MG Tablet PO (07:46)
[2021-07-17] MEDS: Insulin Lispro 100 UNIT/ML INSULN.PEN SC ×3 (07:47→17:37)
[2021-07-17] MEDS: Fluticasone 0.05% 1 SPRAY NASAL.SRY 2 SPRAY NASAL (07:49)
[2021-07-17] MEDS: Nystatin Powder 15gm Bottle 1 APPLIC TOPICAL ×2 (07:53→21:23)
[2021-07-17] MEDS: Menthol/Lanolin/Calamine/Znox 113 GM Tube 1 APPLIC TOPICAL ×2 (07:59→17:39)
--- NOTE | 2021-07-17 14:03 | NURSING ---
PT TAKEN BY WHEEL CHAIR TO INFUSION CENTER AT 8:10 AM AND RETURNED AT 1350 BY WHEEL CHAIR.
[2021-07-17 14:17] VITALS: BP 166/86; PULSE 88; RESP 18; TEMP 36.2; O2SAT 96
[2021-07-17] MEDS: oxyCODONE 5 MG Tablet 10 MG PO ×2 (14:55→23:03)
[2021-07-17 16:01] LABS: Bedside Glucose 208 mg/dL (74-106)
[2021-07-17] MEDS: Insulin Glargine-YFGN 100 UNIT/ML Pen 6 UNIT SC (21:17)
[2021-07-17] MEDS: Montelukast 10 MG Tablet PO (21:23)
[2021-07-17] MEDS: MELATONIN 3 MG TABLET PO (23:03)
[2021-07-18 02:16] LABS: Bedside Glucose 262 mg/dL (74-106)
[2021-07-18] MEDS: Levothyroxine 100 MCG Tablet PO (05:49)
[2021-07-18] MEDS: Pantoprazole Sodium 40 MG Tablet PO (05:49)
[2021-07-18] MEDS: Iron Polysaccharide Complex 150 MG CAPSULE PO (05:49)
[2021-07-18 06:36] LABS: Bedside Glucose 141 mg/dL (74-106)
[2021-07-18] MEDS: Insulin Lispro 100 UNIT/ML INSULN.PEN SC ×4 (08:12→21:38)
[2021-07-18] MEDS: Cholecalciferol (VIT D3) 25 MCG TABLET (1,000 UNITS) PO (08:14)
[2021-07-18] MEDS: Multivitamins,Ther W-Minerals Tablet 1 TABLET PO (08:14)
[2021-07-18] MEDS: Folic Acid 1 MG Tablet PO ×2 (08:14→17:36)
[2021-07-18] MEDS: Polyethylene Glycol 3350 17 GM PACKET PO (08:14)
[2021-07-18] MEDS: Senna/Docusate Sodium 1 Tablet PO ×2 (08:14→17:36)
[2021-07-18] MEDS: Allopurinol 100 MG Tablet PO (08:14)
[2021-07-18] MEDS: Fluticasone 0.05% 1 SPRAY NASAL.SRY 2 SPRAY NASAL (08:17)
[2021-07-18] MEDS: Menthol/Lanolin/Calamine/Znox 113 GM Tube 1 APPLIC TOPICAL ×2 (08:20→17:38)
[2021-07-18] MEDS: Nystatin Powder 15gm Bottle 1 APPLIC TOPICAL ×2 (08:21→17:39)
[2021-07-18] MEDS: Calcium Carbonate 500 MG Tablet 1000 MG PO (09:53)
[2021-07-18 11:06] LABS: Bedside Glucose 119 mg/dL (74-106)
[2021-07-18 12:37] LABS: Hematocrit 33.1 % (37-47); Hemoglobin 11.1 g/dL (12.0-15.0)
[2021-07-18 15:51] LABS: Bedside Glucose 177 mg/dL (74-106)
[2021-07-18 16:00] VITALS: BP 178/73; PULSE 88; RESP 20; TEMP 36.9; O2SAT 98
[2021-07-18 17:40] VITALS: BP 183/79; PULSE 84
[2021-07-18] MEDS: oxyCODONE 5 MG Tablet 10 MG PO ×2 (17:56→22:21)
[2021-07-18] MEDS: Losartan Potassium 25 MG Tablet PO (18:00)
[2021-07-18] MEDS: Furosemide 40 MG Tablet PO (18:00)
--- NOTE | 2021-07-18 18:11 | NURSING ---
BP 183/79 HR 84, increasing edema to BLE, Dr. Bey updated N.O. lasix 40mg QD, Cozaar 25mg QD, recheck labs tomorrow. Give 1x dose lasix 40mg and cozaar 25mg now and recheck BP in a couple of hours.
[2021-07-18 18:46] VITALS: BP 164/59; PULSE 84
[2021-07-18 19:57] VITALS: BP 161/86; PULSE 79; RESP 14; TEMP 37; O2SAT 94
--- NOTE | 2021-07-18 19:59 | NURSING ---
Per communication order, blood pressure rechecked at this time. 161/86. Patient states that she feels much improved.
[2021-07-18 21:31] LABS: Bedside Glucose 153 mg/dL (74-106)
[2021-07-18] MEDS: Montelukast 10 MG Tablet PO (21:39)
[2021-07-18] MEDS: Insulin Glargine-YFGN 100 UNIT/ML Pen 6 UNIT SC (21:40)
[2021-07-19] MEDS: Levothyroxine 100 MCG Tablet PO (05:03)
[2021-07-19] MEDS: Pantoprazole Sodium 40 MG Tablet PO (05:03)
[2021-07-19] MEDS: Iron Polysaccharide Complex 150 MG CAPSULE PO (05:03)
[2021-07-19] MEDS: Furosemide 40 MG Tablet PO (05:04)
[2021-07-19 05:05] VITALS: BP 139/51; PULSE 76; RESP 16; TEMP 36.9; O2SAT 95
[2021-07-19 06:36] LABS: Bedside Glucose 103 mg/dL (74-106)
[2021-07-19] MEDS: Fluticasone 0.05% 1 SPRAY NASAL.SRY 2 SPRAY NASAL (07:50)
[2021-07-19] MEDS: Menthol/Lanolin/Calamine/Znox 113 GM Tube 1 APPLIC TOPICAL ×2 (07:50→17:31)
[2021-07-19] MEDS: Folic Acid 1 MG Tablet PO ×2 (07:51→17:30)
[2021-07-19] MEDS: Senna/Docusate Sodium 1 Tablet PO ×2 (07:53→17:31)
[2021-07-19] MEDS: Allopurinol 100 MG Tablet PO (07:53)
[2021-07-19] MEDS: Cholecalciferol (VIT D3) 25 MCG TABLET (1,000 UNITS) PO (07:53)
[2021-07-19] MEDS: Multivitamins,Ther W-Minerals Tablet 1 TABLET PO (07:54)
[2021-07-19] MEDS: Nystatin Powder 15gm Bottle 1 APPLIC TOPICAL (08:00)
[2021-07-19] MEDS: Insulin Lispro 100 UNIT/ML INSULN.PEN SC ×4 (08:07→18:13)
--- NOTE | 2021-07-19 09:15 | MDS.RN ---
Information for the mds was obtained from review of the clinical record, interview of resident, staff, and direct observation of resident's care.
[2021-07-19] MEDS: Ondansetron ODT 4 MG Tablet PO (09:44)
--- NOTE | 2021-07-19 09:45 | CASEMGMT ---
Social Work Insurance issued LCD 07/21, DC 07/22. Spoke with dtr whom prefers DC 07/21 due to holiday. IDT agreeable. Offered HHC vs outpatient. Dtr requesting HHC. [facility] and would like to use again. No DME needs. Dtr to transport. Referral made to [facility] PT/OT/SN. Plan: DC home with dtr 07/21, [facility] PT/OT/SN JEANCARLOS ForbesW
[2021-07-19] MEDS: Losartan Potassium 25 MG Tablet PO (10:03)
[2021-07-19 10:17] VITALS: BP 151/67; PULSE 70
[2021-07-19 11:05] LABS: Bedside Glucose 157 mg/dL (74-106)
[2021-07-19 13:19] VITALS: BP 140/67; PULSE 81; RESP 16; TEMP 36.4; O2SAT 98
[2021-07-19] MEDS: oxyCODONE 5 MG Tablet 10 MG PO ×2 (13:23→22:03)
--- NOTE | 2021-07-19 16:22 | MDS.RN ---
Pain interview for EMILE 07/21/21
[2021-07-19 16:26] LABS: Bedside Glucose 303 mg/dL (74-106)
--- NOTE | 2021-07-19 17:50 | NURSING ---
PT BLOOD SUGAR 303 AT SUPPER. PER GIVE 5 UNITS NOW OF HUMALOG. RN AWARE
--- NOTE | 2021-07-19 19:16 | PCM.DC.SUM ---
Providers Date of Admission: 07/06/21 Primary Care Physician: Dr. Garret Henson MD Reason For Visit: RT SHOULDER PAIN, CHEST HEMATOMA Diagnosis Discharge Diagnosis (1) Debility: Status: Acute Code(s): R53.81 - Other malaise (2) Right arm pain: Status: Acute Code(s): M79.601 - Pain in right arm (3) Right shoulder pain: Status: Acute Code(s): M25.511 - Pain in right shoulder (4) Traumatic hematoma of right shoulder: Status: Acute Code(s): S40.011A - Contusion of right shoulder, initial encounter (5) Hematoma of right chest wall: Status: Acute Code(s): S20.211A - Contusion of right front wall of thorax, initial encounter (6) Gout: Status: Acute Code(s): M10.9 - Gout, unspecified (7) Dizziness: Status: Acute Code(s): R42 - Dizziness and giddiness (8) Chronic diastolic congestive heart failure: Status: Chronic Code(s): I50.32 - Chronic diastolic (congestive) heart failure (9) Allergic rhinitis: Status: Acute Code(s): J30.9 - Allergic rhinitis, unspecified (10) Vitamin D deficiency: Status: Acute Code(s): E55.9 - Vitamin D deficiency, unspecified (11) Diabetes mellitus: Status: Acute Code(s): E11.9 - Type 2 diabetes mellitus without complications (12) Hypertension: Status: Chronic Code(s): I10 - Essential (primary) hypertension (13) Hypothyroidism: Status: Acute Code(s): E03.9 - Hypothyroidism, unspecified (14) Gastroesophageal reflux disease: Status: Acute Code(s): K21.9 - Gastro-esophageal reflux disease without esophagitis Medications at Discharge Home Medications allopurinol 100 mg PO DAILYCM 12/04/13 folic acid 1 mg PO BIDCM 12/04/13 biotin 5,000 mcg PO DAILY 03/10/16 montelukast 10 mg PO QHS 03/10/16 docusate sodium 100 mg PO BID 03/15/16 bodjlqdw-kmm-zfdk-FA-lutein 1 ea PO DAILY 10/17/16 cholecalciferol (vitamin D3) 1,250 mcg (50,000 unit) capsule 50,000 unit PO QMONTH cap 05/25/18 insulin aspart U-100 100 unit/mL (3 mL) subcutaneous pen 4 unit SUBCUT 0700,1200,1700 ml 05/25/18 losartan 25 mg tablet 25 mg PO DAILY 05/25/18 insulin glargine 100 unit/mL (3 mL) subcutaneous pen 6 unit SUBCUT QHS ml 05/26/19 levothyroxine 100 mcg PO DAILY 12/25/19 cimetidine 800 mg PO DAILY PRN 07/04/21 fluticasone propionate 2 spray NASAL DAILY 07/06/21 furosemide 40 mg PO DAILY 07/06/21 melatonin 3 mg PO QHS PRN PRN #0 tab 07/06/21 nystatin [Nyamyc] 1 applic TOPICAL BID 07/06/21 acetaminophen 1,000 mg PO Q6H PRN PRN #0 tab 07/19/21 cholecalciferol (vitamin D3) 25 mcg PO 0800 #0 tab 07/19/21 furosemide 40 mg PO DAILY #0 tab 07/19/21 losartan 25 mg PO DAILY #0 tab 07/19/21 menthol-zinc oxide [Calmoseptine] 1 applic TOPICAL 0800,1800 #0 g 07/19/21 ondansetron 4 mg PO Q8H PRN 30 Days #90 tab 07/19/21 oxycodone 10 mg PO Q8H PRN PRN 3 Days #18 tab 07/19/21 pantoprazole 40 mg PO DAILY 30 Days #30 tab 07/19/21 polysaccharide iron complex [Ferrex 150] 150 mg PO DAILY 30 Days #30 cap 07/19/21 Hospital Course Operations None Procedures None Summary of Care Provided Minutes Spent on Discharge: 35 Hospital Course: 86 year old female with below past medical history hospitalized for right shoulder pain secondary to right humeral hematoma, right chest wall hematoma, complicated by chronic dislocation right shoulder, admitted to TCU with debility, here for rehabilitation, strengthening, prior to discharge home alone. Resident Hemoglobin 7.1, transfused 2 units PRBC, Hemoglobin improved to 11. Discharge home with daughter 07/21/2021, [facility] PT/OT/SN. Physical Exam Const alert General Appearance: cooperative HEENT normocephalic Eyes PERRL and EOMs intact bilaterally Neck supple, no JVD and no carotid bruits Resp normal respiratory effort, normal air movement and clear to auscultation bilaterally Cardio regular rate and regular rhythm GI normal to inspection, nondistended, normoactive bowel sounds, non-tender and non-distended Extremity normal capillary refill General Extremity: Negative for edema Skin no rashes or lesions noted General Skin Exam: no breakdown Psych affect normal Appearance: appropriate Weight / BMI Weight Weight: 84.323 kg Body Mass Index (BMI) 33.5 ABG / Lab / Microbiology Data Result Diagrams: 07/18/21 12:31 07/14/21 07:05 Laboratory: Laboratory Results - last 24 hr 07/18/21 21:26: POC Glucose 153 H 07/19/21 06:15: POC Glucose 103 07/19/21 10:59: POC Glucose 157 H 07/19/21 16:17: POC Glucose 303 H Microbiology: Microbiology 07/18/21 13:45 Stool Stool Occult Blood (ROCKY) - Final 07/13/21 09:10 Nasal Secretion SARS-CoV-2 Antigen (Rapid) - Final D/C Instructions Discharge Diet: No restrictions Discharge Activity: Return to Normal Activity, May Shower and Use Walker Weight Bearing Status: Weight bearing as tolerated Call your doctor if you observe: Fever of 101 or Higher, Inability to urinate, Inability to have a bowel movement, Shortness of breath, Dizziness, Fainting spells, Swelling in the ankles, Chest pain and Uncontrolled pain Additional Instructions: Discharge home with daughter 07/21/2021, [facility] Care PT/OT/SN. Meaningful Use Info Meaningful Use Diagnoses (Choose all that apply): None applicable Discharge Plan Admission Admit Date/Time: 07/06/21 15:10 Primary Reason for Your Visit: Debility. Attending Provider: Bryce Bey Chi Primary Care Provider: Garret Henson Instructions Additional Instructions / Restrictions: Discharge home with daughter 07/21/2021, [facility] Care PT/OT/SN. Discharge Orders/Prescriptions Prescriptions: New furosemide 40 mg Tablet 40 mg PO DAILY Qty: 0 RF: 0 polysaccharide iron complex [Ferrex 150] 150 mg iron Capsule 150 mg PO DAILY 30 Days Qty: 30 RF: 0 acetaminophen 500 mg Tablet 1,000 mg PO Q6H PRN PRN (Reason: Pain Score 1-5) Qty: 0 RF: 0 pantoprazole 40 mg Tablet,Delayed Release (Dr/Ec) 40 mg PO DAILY 30 Days Qty: 30 RF: 0 losartan 25 mg Tablet 25 mg PO DAILY Qty: 0 RF: 0 cholecalciferol (vitamin D3) 25 mcg (1,000 unit) Tablet 25 mcg PO 0800 Qty: 0 RF: 0 menthol-zinc oxide [Calmoseptine] 0.44-20.6 % Ointment 1 applic topical 0800,1800 Qty: 0 RF: 0 Continued cholecalciferol (vitamin D3) 50,000 unit capsule 50,000 unit PO QMONTH RF: 0 losartan 25 mg tablet 25 mg PO DAILY RF: 0 allopurinol 100 MG tablet 100 mg PO DAILYCM RF: 0 folic acid 1 MG tablet 1 mg PO BIDCM RF: 0 insulin aspart U-100 100 unit/mL insulin pen 4 unit subcut 0700,1200,1700 RF: 0 insulin glargine 100 unit/mL (3 mL) insulin pen 6 unit subcut QHS RF: 0 biotin 10,000 MCG capsule 5,000 mcg PO DAILY RF: 0 montelukast 10 MG tablet 10 mg PO QHS RF: 0 cemsgpev-unm-ubjv-FA-lutein 1 EACH tablet 1 ea PO DAILY RF: 0 levothyroxine 112 MCG tablet 100 mcg PO DAILY RF: 0 cimetidine 400 mg Tablet 800 mg PO DAILY PRN (Reason: upset stomach) RF: 0 melatonin 3 mg Tablet 3 mg PO QHS PRN PRN (Reason: Insomnia) Qty: 0 RF: 0 furosemide 40 MG tablet 40 mg PO DAILY RF: 0 nystatin [Nyamyc] 100,000 unit/gram powder 1 applic topical BID RF: 0 fluticasone propionate 50 mcg/actuation spray,suspension 2 spray NASAL DAILY RF: 0 ondansetron 4 mg tablet,disintegrating 4 mg PO Q8H PRN (Reason: nausea and vomiting) 30 Days Qty: 90 RF: 0 oxycodone 5 mg Tablet 10 mg PO Q8H PRN PRN (Reason: PAIN 1-10) 3 Days Qty: 18 RF: 0 docusate sodium 100 MG capsule 100 mg PO BID RF: 0 Discontinued meclizine 25 MG tablet 12.5 mg PO BID PRN PRN (Reason: Dizziness) RF: 0 aspirin 81 MG tablet,chewable 81 mg PO BID RF: 0 acetaminophen [Tylenol] 325 mg Tablet 650 mg PO Q6H PRN PRN (Reason: Pain Score 1-10/Temp > 100.7 F) Qty: 0 RF: 0 lorazepam 0.5 mg Tablet 0.5 mg PO Q12H PRN PRN (Reason: Anxiety) 3 Days Qty: 6 RF: 0 polyethylene glycol 3350 17 gram powder in packet 17 g PO DAILY RF: 0 insulin lispro [Humalog KwikPen Insulin] 100 unit/mL insulin pen See Protocol unit subcut ACHS RF: 0 Referrals / Follow Up: Garret Henson MD [Primary Care Provider] - Within 1 Week Disposition Disposition (needs filled in before D/C Order can be placed): Home Health Service
[2021-07-19 21:31] LABS: Bedside Glucose 193 mg/dL (74-106)
[2021-07-19] MEDS: Montelukast 10 MG Tablet PO (21:58)
[2021-07-19] MEDS: Insulin Glargine-YFGN 100 UNIT/ML Pen 6 UNIT SC (21:59)
[2021-07-20] MEDS: Iron Polysaccharide Complex 150 MG CAPSULE PO (05:17)
[2021-07-20] MEDS: Losartan Potassium 25 MG Tablet PO (05:17)
[2021-07-20] MEDS: Levothyroxine 100 MCG Tablet PO (05:17)
[2021-07-20] MEDS: Pantoprazole Sodium 40 MG Tablet PO (05:17)
[2021-07-20] MEDS: Furosemide 40 MG Tablet PO (05:19)
[2021-07-20 05:32] VITALS: BP 146/88
[2021-07-20 06:36] LABS: Bedside Glucose 125 mg/dL (74-106)
[2021-07-20] MEDS: Folic Acid 1 MG Tablet PO ×2 (08:21→17:39)
[2021-07-20] MEDS: Insulin Lispro 100 UNIT/ML INSULN.PEN SC ×3 (08:21→17:40)
[2021-07-20] MEDS: Multivitamins,Ther W-Minerals Tablet 1 TABLET PO (08:21)
[2021-07-20] MEDS: Polyethylene Glycol 3350 17 GM PACKET PO (08:21)
[2021-07-20] MEDS: Allopurinol 100 MG Tablet PO (08:22)
[2021-07-20] MEDS: Senna/Docusate Sodium 1 Tablet PO ×2 (08:22→17:40)
[2021-07-20] MEDS: Cholecalciferol (VIT D3) 25 MCG TABLET (1,000 UNITS) PO (08:22)
[2021-07-20] MEDS: Fluticasone 0.05% 1 SPRAY NASAL.SRY 2 SPRAY NASAL (08:24)
[2021-07-20] MEDS: Nystatin Powder 15gm Bottle 1 APPLIC TOPICAL ×2 (08:29→17:44)
[2021-07-20] MEDS: Menthol/Lanolin/Calamine/Znox 113 GM Tube 1 APPLIC TOPICAL ×2 (08:29→17:44)
[2021-07-20] MEDS: oxyCODONE 5 MG Tablet 10 MG PO ×2 (09:21→22:50)
[2021-07-20] MEDS: Bisacodyl 5 MG Tablet 10 MG PO (09:21)
[2021-07-20 10:41] LABS: Bedside Glucose 250 mg/dL (74-106)
--- NOTE | 2021-07-20 14:45 | CASEMGMT ---
Social Work BIMS and PHQ-9 completed for MDS assessment. Raquel Mariano, GENERAL FARMER IMMIGRATION LAWYER
[2021-07-20 15:46] LABS: Bedside Glucose 262 mg/dL (74-106)
[2021-07-20 16:00] VITALS: BP 185/70; PULSE 71; RESP 18; TEMP 36.2; O2SAT 95
[2021-07-20] MEDS: Montelukast 10 MG Tablet PO (20:49)
[2021-07-20] MEDS: Insulin Glargine-YFGN 100 UNIT/ML Pen 6 UNIT SC (20:49)
[2021-07-20 21:16] LABS: Bedside Glucose 209 mg/dL (74-106)
[2021-07-20 22:07] VITALS: PULSE 75; O2SAT 98
[2021-07-21] MEDS: Losartan Potassium 25 MG Tablet PO (05:18)
[2021-07-21] MEDS: Iron Polysaccharide Complex 150 MG CAPSULE PO (05:18)
[2021-07-21] MEDS: Levothyroxine 100 MCG Tablet PO (05:18)
[2021-07-21] MEDS: Pantoprazole Sodium 40 MG Tablet PO (05:18)
[2021-07-21] MEDS: Furosemide 40 MG Tablet PO (05:18)
[2021-07-21 06:31] LABS: Bedside Glucose 150 mg/dL (74-106)
[2021-07-21 07:06] LABS: Absolute Lymphocyte Count 1.03 X10^3/uL (0.83-4.51); Absolute Neutrophil Count 3.9 X10^3/uL (2.0-7.7); Basophil# 0.06 X10^3/uL; Eosinophil# 0.54 X10^3/uL; Eosinophils% 8.7 % (0-5); Hematocrit 31.2 % (37-47); Hemoglobin 10.1 g/dL (12.0-15.0); Lymphocyte # 1.03 X10^3/ul (0.83-4.51); Lymphocyte % 16.5 % (19-41); Mean Corp Hgb Conc 32.4 g/dL (32-36); Mean Corpuscular Hgb 29.4 pg (27.0-32.0); Mean Corpuscular Volume 90.7 fL (81-99); Mean Platelet Vol. 9.1 fl (6.2-12.0); Monocyte# 0.71 X10^3/uL; Monocyte% 11.4 % (0-10); NRBC Flagged by Analyzer 0 % (0-5); Neutrophil # 3.87 X10^3/uL (2.7-7.7); Neutrophil % 62.1 % (47-70); Platelet Count 342 K/mm3 (150-450); RBC Distribution Width CV 14.2 % (11.6-14.6); RBC Distribution Width SD 46.6 fl (35.1-43.9); Red Blood Count 3.44 M/mm3 (4.2-5.4); White Blood Count 6.2 K/mm3 (4.4-11.0)
[2021-07-21 07:25] LABS: Anion Gap 5 (5-15); BUN 25 mg/dL (7-18); BUN/Creat Ratio 24.3 RATIO (10-20); Calcium,Total 8.7 mg/dL (8.5-10.1); Chloride 98 mmol/L (98-107); Creatinine, Serum 1.03 mg/dL (0.55-1.02); EST Glomerular Filtration Rate 54 mL/min (>60); Est Glom Filt Rate - Afr Amer 65 mL/min (>60); Estimated Creatinine Clearance 30.43 ml/min; Glucose 143 mg/dL (74-106); Potassium 4.1 mmol/L (3.5-5.1); Sodium Level 134 mmol/L (136-145)
[2021-07-21] MEDS: Insulin Lispro 100 UNIT/ML INSULN.PEN SC (08:24)
[2021-07-21] MEDS: Fluticasone 0.05% 1 SPRAY NASAL.SRY 2 SPRAY NASAL (08:25)
[2021-07-21] MEDS: Folic Acid 1 MG Tablet PO (08:28)
[2021-07-21] MEDS: Multivitamins,Ther W-Minerals Tablet 1 TABLET PO (08:28)
[2021-07-21] MEDS: Cholecalciferol (VIT D3) 25 MCG TABLET (1,000 UNITS) PO (08:28)
[2021-07-21] MEDS: Allopurinol 100 MG Tablet PO (08:29)
[2021-07-21] MEDS: Nystatin Powder 15gm Bottle 1 APPLIC TOPICAL (08:32)
[2021-07-21] MEDS: Menthol/Lanolin/Calamine/Znox 113 GM Tube 1 APPLIC TOPICAL (08:32)
[2021-07-21 11:00] VITALS: BP 151/54; PULSE 68; RESP 18; TEMP 36.6; O2SAT 98
== END 2021-07-21 11:07 | disposition home health service (06) | DRG 949 ==
PROVIDERS: Admitting Provider Family Medicine Geriatric Medicine; PCP Family Medicine; Visit Provider Family Medicine Geriatric Medicine
DX: S43.004D Unspecified dislocation of right shoulder joint, subsequent encounter (principal); I13.0 Hypertensive heart and chronic kidney disease with heart failure and stage 1 through stage 4 chronic kidney disease, or unspecified chronic kidney disease; I50.32 Chronic diastolic (congestive) heart failure; E11.22 Type 2 diabetes mellitus with diabetic chronic kidney disease; B35.4 Tinea corporis; E03.9 Hypothyroidism, unspecified; E55.9 Vitamin D deficiency, unspecified; Z79.4 Long term (current) use of insulin; N18.30 Chronic kidney disease, stage 3 unspecified; F41.9 Anxiety disorder, unspecified; M10.9 Gout, unspecified; K21.9 Gastro-esophageal reflux disease without esophagitis; W18.11XD Fall from or off toilet without subsequent striking against object, subsequent encounter; S20.20XD Contusion of thorax, unspecified, subsequent encounter; Z79.82 Long term (current) use of aspirin; Z79.899 Other long term (current) drug therapy
CPT/HCPCS: 36415; 72100; 73502; 73562; 73590; 80048; 82274; 82962; 85014; 85018; 85025; 86850; 86900; 86901; 86920; 86922; 87426; 92523; 97110; 97116; 97162; 97166; 97530; 97535; 97802; J7030; A4216

== ENCOUNTER 2021-07-11 11:08 | Outpatient (CLI) | payer MEDICARE, SELFPAY ==
--- NOTE | 2021-07-11 11:11 | CT_ITS ---
STUDY: CT LEFT HIP REASON FOR EXAM: Left hip pain, left hip injury. TECHNIQUE: Transaxial CT imaging of the hip was performed. Coronal and sagittal images were reformatted. Individualized dose optimization techniques were used for this CT. COMPARISON: Radiographs 07/10/2021. FINDINGS: There is osteopenia. There is joint space narrowing of the left hip (coronal reconstruction 58) and a ring of osteophytes along the anterior and lateral femoral neck (coronal reconstructions 52, 53; axial image 69). There is a herniation pit at the anterior aspect of the left femoral neck (axial images 66-68; sagittal reconstructions 53, 54) without demonstrated fracture of the femoral neck or intertrochanteric femur. There is no demonstrated fracture of the left obturator ring. There are degenerative changes of the pubic symphysis. There is mild arthrosis of the left sacroiliac joint (coronal reconstruction 28). There is vascular calcification. There are calcified uterine fibroids. 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 Herniation pit at the anterior aspect of the left femoral neck. Mild arthrosis of the left sacroiliac joint. Electronically Signed: Mark Cortez MD at 12:32 EDT ,
== END 2021-07-11 23:59 | disposition home or self-care (01) ==
LOC: CT 11:10
PROVIDERS: PCP Family Medicine; Referring Provider Family Medicine Geriatric Medicine; Visit Provider Family Medicine Geriatric Medicine
DX: M25.552 Pain in left hip (principal); M16.11 Unilateral primary osteoarthritis, right hip
CPT/HCPCS: 73700

== ENCOUNTER 2021-07-17 08:20 | Outpatient (CLI) | payer MEDICARE, SELFPAY ==
[2021-07-17] VITALS (7 sets, daily range): BP systolic 137–179; BP diastolic 54–91; PULSE 78–88; RESP 16–18; TEMP 35.8–36.8; O2SAT 93–99; BMI 34.2
[2021-07-17] MEDS: 0.9% NaCl Peripheral Flush Adult/Peds IV (08:44)
[2021-07-17] MEDS: Furosemide 20 MG/2 ML VIAL IV (11:08)
[2021-07-17 11:16] LABS: Bedside Glucose 154 mg/dL (74-106)
== END 2021-07-17 23:59 | disposition home or self-care (01) ==
LOC: MEDOUTP 08:20
PROVIDERS: PCP Family Medicine; Referring Provider Family Medicine Geriatric Medicine; Visit Provider Family Medicine Geriatric Medicine
DX: D64.9 Anemia, unspecified (principal)
CPT/HCPCS: 36415; 36430; 82962; 86850; 86900; 86901; 86920; 86922; J7040; P9016; A4216; J1940

== ENCOUNTER 2022-06-04 09:34 | Outpatient (CLI) | payer MEDICARE, SELFPAY ==
[2022-06-04 10:50] LABS: ALB/GLOB Ratio 0.9 RATIO (0.9-2.4); AST(SGOT) 23 U/L (15-37); Alanine Aminotransfer ALT/SGPT 18 U/L (13-56); Albumin, Serum 3.7 g/dL (3.2-5.0); Alkaline Phosphatase 102 U/L (45-117); Anion Gap 5 (5-15); BUN 31 mg/dL (7-18); BUN/Creat Ratio 22.8 RATIO (10-20); Calcium,Total 9.8 mg/dL (8.5-10.1); Chloride 100 mmol/L (98-107); Creatinine, Serum 1.36 mg/dL (0.55-1.02); EST Glomerular Filtration Rate 39 mL/min (>60); Est Glom Filt Rate - Afr Amer 47 mL/min (>60); GGTP 33 U/L (5-55); Globulin 4.1 g/dL (2.2-4.2); Glucose 146 mg/dL (74-106); Phosphorus 3.5 mg/dL (2.5-4.9); Potassium 3.9 mmol/L (3.5-5.1); Protein, Total 7.8 g/dL (6.4-8.2); Sodium Level 136 mmol/L (136-145); Thyroid Stim Hormone (TSH) 3.11 uIU/mL (0.358-3.74)
[2022-06-04 11:06] LABS: Hemoglobin A1c 6.6 % (3.8-5.6)
[2022-06-05 13:08] LABS: Alkaline Phosphatase, Serum 102 IU/L (44-121); Bone Fraction 42 % (14-68); Liver Fraction 58 % (18-85)
[2022-06-05 18:54] LABS: Intestinal Fraction 0 % (0-18)
== END 2022-06-04 23:59 | disposition home or self-care (01) ==
PROVIDERS: PCP Family Medicine; Visit Provider Internal Medicine Nephrology
DX: L89.133 Pressure ulcer of right lower back, stage 3 (principal); I50.32 Chronic diastolic (congestive) heart failure; I13.0 Hypertensive heart and chronic kidney disease with heart failure and stage 1 through stage 4 chronic kidney disease, or unspecified chronic kidney disease; E11.22 Type 2 diabetes mellitus with diabetic chronic kidney disease; E11.49 Type 2 diabetes mellitus with other diabetic neurological complication; Z79.4 Long term (current) use of insulin; N18.30 Chronic kidney disease, stage 3 unspecified; M40.209 Unspecified kyphosis, site unspecified; M10.9 Gout, unspecified; E55.9 Vitamin D deficiency, unspecified; R62.7 Adult failure to thrive; E03.9 Hypothyroidism, unspecified; M81.0 Age-related osteoporosis without current pathological fracture; K21.9 Gastro-esophageal reflux disease without esophagitis; Z79.82 Long term (current) use of aspirin; Z79.84 Long term (current) use of oral hypoglycemic drugs; Z79.890 Hormone replacement therapy; Z79.899 Other long term (current) drug therapy; R74.8 Abnormal levels of other serum enzymes
CPT/HCPCS: 11042; 36415; 80053; 82977; 83036; 84075; 84080; 84100; 84443

== ENCOUNTER 2022-06-04 10:45 | Outpatient (RCR) | payer MEDICARE, SELFPAY ==
[2022-05-08 09:56] VITALS: BP 120/56; PULSE 79; TEMP 36.2; BMI 32.9
--- NOTE | 2022-05-08 12:22 | HP.PCM_ITS ---
History of Present Illness Date of Service: 05/08/22 Chief Complaint: Follow-up on right lower back wound History of Wound: 87-year-old white female that still lives with daughter. Has a chief executive or managing director that helps her during the day to 1:00 in the afternoon. Had developed an open area on her right lower back she has been diagnosed with lymphoma to 1 area above it and the aide says the way she sits in her lift chair she sleeps and it also it pushes the skin and that probably causes the open area also. The aide has been putting just a gauze dressing on it to protect it. She does have nursing come out 2 days a week that would do any dressing that we order. [facility] Medical History Acute GI bleeding Chronic renal disease, stage 3, moderately decreased glomerular filtration rate (GFR) between 30-59 mL/min/1.73 square meter Colitis Colitis Congestive heart failure (CHF) Depressed Depression Diabetes mellitus Diastolic CHF, chronic Essential hypertension First degree AV block GERD (gastroesophageal reflux disease) GI bleed Gout Gout History of GI bleed Hypothyroidism Kidney disease Non-smoker Osteoporosis Premature atrial contractions Premature supraventricular beats Premature ventricular contraction Type 2 diabetes mellitus Ventricular ectopy Home Medications allopurinol 100 mg tablet 100 mg PO DAILYCM gout 12/04/13 [History Last Taken 07/04/21] folic acid 1 mg tablet 1 mg PO BIDCM supplement 12/04/13 [History Last Taken 07/04/21] biotin 10,000 mcg capsule 5,000 mcg PO DAILY supplement 03/10/16 [History Last Taken 07/04/21] montelukast 10 mg tablet 10 mg PO QHS allergies 03/10/16 [History Last Taken 07/03/21] docusate sodium 100 mg capsule 100 mg PO BID stool softener 03/15/16 [History Last Taken 07/04/21] multivit with pehtecuu-mwfy-EI-lutein 8 mg iron-400 mcg-300 mcg tablet 1 ea PO DAILY vitamin 10/17/16 [History Last Taken 07/04/21] cholecalciferol (vitamin D3) 1,250 mcg (50,000 unit) capsule 50,000 unit PO QMONTH supplement 05/25/18 [History Last Taken 06/05/21] insulin aspart U-100 100 unit/mL (3 mL) subcutaneous pen 4 unit subcut 0700,1200,1700 insulin 05/25/18 [History Last Taken 07/04/21] insulin glargine 100 unit/mL (3 mL) subcutaneous pen 6 unit subcut QHS insulin 05/26/19 [History Last Taken 07/04/21] levothyroxine 112 mcg tablet 100 mcg PO DAILY thyroid 12/25/19 [History Last Taken 07/04/21] cimetidine 400 mg tablet 800 mg PO DAILY PRN upset stomach 07/04/21 [History Last Taken Unknown] fluticasone propionate 50 mcg/actuation nasal spray,suspension 2 spray NASAL DAILY allergies 07/06/21 [History Last Taken Unknown] furosemide 40 mg tablet 40 mg PO DAILY water pill 07/06/21 [History Last Taken Unknown] melatonin 3 mg tablet 3 mg PO QHS PRN PRN Insomnia #0 tabs 07/06/21 [Rx Last Taken Unknown] nystatin 100,000 unit/gram topical powder (Nyamyc) 1 applic topical BID skin protectant 07/06/21 [History Last Taken Unknown] acetaminophen 500 mg tablet 1,000 mg PO Q6H PRN PRN Pain Score 1-5 #0 tabs 07/19/21 [Rx Last Taken Unknown] cholecalciferol (vitamin D3) 25 mcg (1,000 unit) tablet 25 mcg PO 0800 #0 tabs 07/19/21 [Rx Last Taken Unknown] losartan 25 mg tablet 25 mg PO DAILY #0 tabs 07/19/21 [Rx Last Taken Unknown] ondansetron 4 mg disintegrating tablet 4 mg PO Q8H PRN nausea and vomiting 30 days #90 tabs 07/19/21 [Rx Last Taken Unknown] oxycodone 5 mg tablet 10 mg PO Q8H PRN PRN PAIN 1-10 3 days #18 tabs 07/19/21 [Rx Last Taken Unknown] pantoprazole 40 mg tablet,delayed release 40 mg PO DAILY 30 days #30 tabs 07/19/21 [Rx Last Taken Unknown] amlodipine 10 mg tablet (Norvasc) 5 mg PO DAILY 04/25/22 [History Last Taken Unknown] aspirin 81 mg tablet,delayed release (Adult Low Dose Aspirin) 81 mg PO DAILY 04/25/22 [History Last Taken Unknown] meclizine 12.5 mg tablet 12.5 mg PO BID PRN Nausea 04/25/22 [History Last Taken Unknown] polysaccharide iron complex 150 mg iron capsule (iFerex 150) 150 mg PO .qod 04/25/22 [History Last Taken Unknown] Allergy/AdvReac Type Severity Reaction Status Date / Time shellfish derived Allergy Severe Anaphylaxis Verified 04/25/22 11:11 hydrochlorothiazide Allergy Unknown Verified 04/25/22 11:11 [From Prinzide] Iodinated Contrast Media Allergy Anaphylaxis Verified 04/25/22 11:11 [Iodinated Contrast Media - IV Dye] lisinopril [From Prinzide] Allergy Unknown Verified 04/25/22 11:11 neomycin [Neomycin] Allergy Unknown Verified 04/25/22 11:11 guaifenesin [From Mucinex] AdvReac Severe PT UNSURE Verified 04/25/22 11:11 OF REACTION Family History Father CVA (cerebral vascular accident) Myocardial infarction Heart disease Mother Cancer Brother Pacemaker Surgical History History of appendectomy History of back surgery History of cholecystectomy History of tonsillectomy Social History household members: none Smoking Status: Never smoker alcohol intake: never caffeine: Yes Type: coffee Number of servings: 4 ROS Constitutional Constitutional: Reports systems reviewed and no addt'l complaints, except as documented Eyes Eyes: Reports systems reviewed and no addt'l complaints, except as documented ENT HEENT: Reports systems reviewed and no addt'l complaints, except as documented Cardiovascular Cardiovascular: Reports systems reviewed and no addt'l complaints, except as documented Respiratory/Chest Respiratory/Chest: Reports systems reviewed and no addt'l complaints, except as documented Gastrointestinal Gastrointestinal: Reports systems reviewed and no addt'l complaints, except as documented Genitourinary Genitourinary: Reports systems reviewed and no addt'l complaints, except as documented Musculoskeletal Musculoskeletal: Reports systems reviewed and no addt'l complaints, except as documented Integumentary Integumentary: Reports wounds and other Details: Open wound right lower back nonhealing since October Neurologic Neurologic: Reports systems reviewed and no addt'l complaints, except as documented Psychiatric Psychiatric: Reports systems reviewed and no addt'l complaints, except as documented Endocrine Endocrinology: Reports systems reviewed and no addt'l complaints, except as documented Hematologic/Lymphatic Hematologic/Lymphatic: Reports systems reviewed and no addt'l complaints, except as documented Allergic/Immunologic Allergic/Immunologic: Reports systems reviewed and no addt'l complaints, except as documented Vital Signs Vital Signs Vital Signs: 05/08/22 09:56 Temperature 97.2 F L Temperature Source Temporal Pulse Rate 79 Blood Pressure 120/56 L Blood Pressure Mean 77 Blood Pressure Source Monitor Weight Weight: 180 lb Body Mass Index (BMI) 32.9 Physical Exam Const oriented x3 General Appearance: cooperative Exam Limitations: no limitations Resp normal respiratory effort Effort and Inspection: able to speak in complete sentences Auscultation: clear to auscultation bilaterally Cardio regular rate and regular rhythm Palpation: normal PMI Rate: regular rate Rhythm: regular rhythm Back/Spine Cervical Spine: cervical ROM normal Thoracic Spine / Upper Back: normal to inspection Lumbar Spine / Lower Back: normal to inspection Skin no rashes or lesions noted Skin Narrative: Open wound nonhealing with scabbing and some slough in the right lower back area. Area was scrubbed and debrided and then cultured Psych Appearance: grossly normal Speech: normal speech Thought Content: normal thought content Judgement: judgement good Debridement Note Debridement Note Wound debrided: Right lower back nonhealing ulcer Type of Debridement: Excisional debridement Anesthesia Used: 5% Lidocaine Gel Depth: in the subcutaneous layer Percentage of wound debrided: 100 Instrument Used: 5mm curette Severity: Limited To Skin Breakdown Bleeding Controlled with: Compression and gauze Post-Debridement Measurements and Additional Note: Post-Debridement Measurements/Treatment - Nurse 1 - General Ulcer Assessment Start: 05/08/22 09:55 Freq: Status: Active Protocol: AMY Activity Type Activity Date Activity User E-sign Co-sign Detail Recorded Client Recorded Date Recorded By Document 05/08/22 09:56 CLAUDIO [id number] 05/08/22 10:07 CLAUDIO 05/08/22 09:56 - Today's Visit Information Type of service Initial Visit Arrival Mode Wheelchair Patient Identification Verified (Name & Yes ) Patient Requires Transmission-Based No Precautions Height and Weight Height 5 ft 2 in Weight 180 lb Weight in Pounds 180.0 lbs Body Mass Index (BMI) 32.9 BMI Classification Obese BSA - Teri 1.83 Vital Signs Temperature (97.8 F-99.1 F) 97.2 F L Temperature Source Temporal Pulse Rate (60-100) 79 Pulse Location Monitor Blood Pressure (90/60-120/80) 120/56 L Blood Pressure Mean 77 Source Monitor History Since Last Visit- (Skip if this is Patient's initial visit) Left Footwear Regular Shoe Right Footwear Regular Shoe Pain Scale: 0-10 Numeric Is Patient Pain Free? Yes WC - Nurse 1 - General Ulcer Measurement Start: 05/08/22 09:55 Freq: Status: Active Protocol: Activity Type Activity Date Activity User E-sign Co-sign Detail Recorded Client Recorded Date Recorded By Document 05/08/22 09:56 CLAUDIO [id number] 05/08/22 10:07 CLAUDIO 05/08/22 09:56 Wound Center Nurse 1 #1 right mid-back -Combined with other wound No -Current Size (cm) - Length 1.7 -Current Size (cm) - Width 1 -Current Size (cm) - Depth 0.1 -Total Square Cm 1.7 -Date of Last Picture (Recall this 05/08/22 field) -Photo Taken Yes -Tunneling No -Undermining/Tunneling No -Circular Undermining No -Change in Wound Grade/Stage No -Exudate Amt None Present -Wound Margin Distinct, Outline Attached -Granulation Amt None Present (0 %) -Granulation Quality N/A -Slough/Fibrin No -Necrosis Amt None Present (0 %) -Structure Exposed N/A -Texture (Ericka-wound Skin Appearance) No Abnormality, Assessed -Moisture (Ericka-wound Skin Appearance) No Abnormality, Assessed -Color (Ericka-wound Skin Appearance) Erythema -Temperature (Ericka-wound Skin No Abnormality Appearance) (Pt Warm) -Tenderness on Palpation (Ericka-wound No Skin Appearance) -Ulcer Cleansing Rinsed/ Irrigated with Saline -Foul Odor after Cleansing No -Anesthetic Used 5% Lidocaine Gel -Wound Comment(s) scabbing WC - Nurse 2 - General Ulcer CM Notes Start: 05/08/22 09:55 Freq: Status: Active Protocol: Activity Type Activity Date Activity User E-sign Co-sign Detail Recorded Client Recorded Date Recorded By Document 05/08/22 10:23 MW [id number] 05/08/22 10:27 MW 05/08/22 10:23 Wound Center Nurse 2 -Time 10:25 -Correct Patient Yes -Correct Side, Site, Position Yes -Correct Procedure Yes -Procedure Performed Yes -Type of Procedure Debridement -Clinical Debridement Subcutaneous -Tissue Removed Subcutaneous -Post Debridement (cm) - Length 1.5 -Post Debridement (cm) - Width 1.0 -Post Debridement (cm) - Depth 0.1 -Total Square (Post) (cm) 1.50 -Area of Debridement (cm) - Length 1.5 -Area of Debridement (cm) - Width 1.0 -Total Square (Area) (cm) 1.50 -Tunneling No -Undermining/Tunneling No -Circular Undermining No -Wound/Ulcer Outcome Not Healed -Ulcer Cleansing Rinsed/ Irrigated with Saline -Foul Odor after Cleansing No -Bioengineered Tissue No -Bleeding Controlled with Pressure -Treatment Response Procedure Tolerated Well -Offloading No -Debridement - Subq, 1st 20sq cm Yes Pain Scale: 0-10 Numeric Is Patient Pain Free? Yes - Nurse 3 - General Ulcer D/C NN Start: 05/08/22 09:55 Freq: Status: Active Protocol: Activity Type Activity Date Activity User E-sign Co-sign Detail Recorded Client Recorded Date Recorded By Document 05/08/22 10:38 [facility] [id number] 05/08/22 10:39 [facility] 05/08/22 10:38 Wound Care Center Nurse 3 #1 right mid-back -Ulcer Cleansing Rinsed/ Irrigated with Saline -Foul Odor after Cleansing No -Primary Dressing Applied Aquacel Extra, NonAdherent Contact Layer, Mepilex Border -Aquacel Extra 1 -Mepilex Border 1 Treatment Response Procedure Tolerated Well Pain Scale: 0-10 Numeric Is Patient Pain Free? Yes WC - Visit Discharge Discharge Condition Stable Ambulatory Status Wheelchair Transportation Private Auto Accompanied by AIDE Assessment/Plan Assessment/Plan (1) Nonhealing nonsurgical wound: CODE(S): T14.8XXA - Other injury of unspecified body region, initial encounter PLAN: Wash the area with antibacterial soap and apply Aquacel extra to the wound base moistened with Adaptic over top and a foam dressing. We will encourage patient not to sleep in her lift chair. Follow-up in 2 weeks (2) Diabetes mellitus: CODE(S): E11.9 - Type 2 diabetes mellitus without complications (3) Debility: CODE(S): R53.81 - Other malaise
[2022-05-29 11:09] VITALS: BP 160/75; PULSE 91; TEMP 36.2; BMI 32.9
--- NOTE | 2022-05-29 12:40 | PCM.WC.PN ---
History of Present Illness Date of Service: 05/29/22 Chief Complaint: Follow-up on right lower back wound History of Wound: 87-year-old white female that still lives with daughter. Has a link trainer maintenance man that helps her during the day to 1:00 in the afternoon. Had developed an open area on her right lower back she has been diagnosed with lymphoma to 1 area above it and the aide says the way she sits in her lift chair she sleeps and it also it pushes the skin and that probably causes the open area also. The aide has been putting just a gauze dressing on it to protect it. She does have nursing come out 2 days a week that would do any dressing that we order. Progress of Wound: Appears here with her caregiver for right lower back wound. States still open. This is only her second visit since May 08. Patient has refused to come back. Cultures that were obtained showed some bacteria we will start her on linezolid 600 mg twice a day for 10 days. We will try her on Aquacel extra to the wound base. Wound is very superficial. Subjective Subjective Patient has been agreeable with care Objective Data Objective Data Very erythematous around the wound perimeter no drainage noted no odor no swelling denies any pain on debridement. Vital Signs: Vital Signs Temp Pulse BP 97.2 F L 91 160/75 H 05/29/22 11:09 05/29/22 11:09 05/29/22 11:09 Weight: 180 lb Body Mass Index (BMI) 32.9 Lab / Micro Data Micro: Microbiology 05/08/22 10:25 Wound Abcess - Back Gram Stain - Final 05/08/22 10:25 Wound Abcess - Back Wound Culture - Final Enterococcus faecalis Staphylococcus epidermidis 05/08/22 10:25 Wound Abcess - Back Anaerobic Culture - Final No anaerobic bacteria isolated. Physical Exam Const oriented x3 General Appearance: cooperative Exam Limitations: no limitations Resp normal respiratory effort Effort and Inspection: able to speak in complete sentences Auscultation: clear to auscultation bilaterally Cardio regular rate and regular rhythm Palpation: normal PMI Rate: regular rate Rhythm: regular rhythm Back/Spine Cervical Spine: cervical ROM normal Thoracic Spine / Upper Back: normal to inspection Lumbar Spine / Lower Back: normal to inspection Skin no rashes or lesions noted Skin Narrative: Open wound nonhealing with scabbing and some slough in the right lower back area. Area was scrubbed and debrided and then cultured Psych Appearance: grossly normal Speech: normal speech Thought Content: normal thought content Judgement: judgement good Debridement Note Debridement Note Post-Debridement Measurements and Additional Note: Post-Debridement Measurements/Treatment - Nurse 1 - General Ulcer Assessment Start: 05/08/22 09:55 Freq: Status: Active Protocol: AMY Activity Type Activity Date Activity User E-sign Co-sign Detail Recorded Client Recorded Date Recorded By Document 05/08/22 09:56 [place] [id number] 05/08/22 10:07 [place] Document 05/29/22 11:09 CLAUDIO [id number] 05/29/22 11:14 [place] 05/08/22 05/29/22 09:56 11:09 WC - Today's Visit Information Type of service Initial Visit Follow-up Visit (Physician/RELISH [facility]ER ) Arrival Mode Wheelchair Wheelchair Accompanied by caregiver Patient Identification Verified (Name & Yes Yes ) Patient Requires Transmission-Based No No Precautions Safety Precautions NA Height and Weight Height 5 ft 2 in Weight 180 lb Weight in Pounds 180.0 lbs Body Mass Index (BMI) 32.9 32.9 BMI Classification Obese Obese BSA - Teri 1.83 Vital Signs Temperature (97.8 F-99.1 F) 97.2 F L 97.2 F L Temperature Source Temporal Temporal Pulse Rate (60-100) 79 91 Pulse Location Monitor Monitor Blood Pressure (90/60-120/80) 120/56 L 160/75 H Blood Pressure Mean (mm Hg) 77 103 Source Monitor Monitor History Since Last Visit- (Skip if this is Patient's initial visit) Have you changed medications since your No last visit? Any new allergies or adverse reactions No Had a fall/change in ADL's that may No increase risk of falls Signs or symptoms of abuse and/or No neglect since last visit Have you been in the hospital since your No last visit? Has dressing in place as prescribed Yes Has compression in place as prescribed N/A Has offloadiing in place as prescribed N/A Experienced any changes in pain level or No management Left Footwear Regular Shoe Regular Shoe Right Footwear Regular Shoe Regular Shoe Pain Scale: 0-10 Numeric Is Patient Pain Free? Yes No DUYEN Leonard Nurse 1 - General Ulcer Measurement Start: 05/08/22 09:55 Freq: Status: Active Protocol: Activity Type Activity Date Activity User E-sign Co-sign Detail Recorded Client Recorded Date Recorded By Document 05/08/22 09:56 [place] [id number] 05/08/22 10:07 [place] Document 05/29/22 11:09 AK [id number] 05/29/22 11:14 AK 05/08/22 05/29/22 09:56 11:09 Wound Center Nurse 1 #1 right mid-back -Combined with other wound No No -Current Size (cm) - Length 1.7 1 -Current Size (cm) - Width 1 1 -Current Size (cm) - Depth 0.1 0.1 -Total Square Cm 1.7 1 -Date of Last Picture (Recall this 05/08/22 05/29/22 field) -Photo Taken Yes Yes -Tunneling No No -Undermining/Tunneling No No -Circular Undermining No No -Change in Wound Grade/Stage No No -Exudate Amt None Present Medium -Exudate Type Serosanguineous -Wound Margin Distinct, Distinct, Outline Outline Attached Attached -Granulation Amt None Present (0 Small (1-33%) %) -Granulation Quality N/A [place] -Slough/Fibrin No Yes -Necrosis Amt None Present (0 Large (67-100%) %) -Necrotic Tissue Type Adherent Slough -Structure Exposed N/A N/A -Texture (Ericka-wound Skin Appearance) No Abnormality, No Abnormality, Assessed Assessed -Moisture (Ericka-wound Skin Appearance) No Abnormality, No Abnormality, Assessed Assessed -Color (Ericka-wound Skin Appearance) Erythema Assessed, Erythema -Temperature (Ericka-wound Skin No Abnormality No Abnormality Appearance) (Pt Warm) (Pt Warm) -Tenderness on Palpation (Ericka-wound No No Skin Appearance) -Ulcer Cleansing Rinsed/ Rinsed/ Irrigated with Irrigated with Saline Saline -Foul Odor after Cleansing No No -Anesthetic Used 5% Lidocaine 5% Lidocaine Gel Gel -Wound Comment(s) scabbing WC - Nurse 2 - General Ulcer CM Notes Start: 05/08/22 09:55 Freq: Status: Active Protocol: Activity Type Activity Date Activity User E-sign Co-sign Detail Recorded Client Recorded Date Recorded By Document 05/08/22 10:23 MW [id number] 05/08/22 10:27 MW Document 05/29/22 11:17 MW [id number] 05/29/22 11:22 MW 05/08/22 05/29/22 10:23 11:17 Wound Center Nurse 2 #1 right mid-back -Time 10:25 11:19 -Correct Patient Yes Yes -Correct Side, Site, Position Yes Yes -Correct Procedure Yes Yes -Procedure Performed Yes Yes -Type of Procedure Debridement Debridement -Clinical Debridement Subcutaneous Subcutaneous -Tissue Removed Subcutaneous Subcutaneous -Post Debridement (cm) - Length 1.5 1.3 -Post Debridement (cm) - Width 1.0 1.0 -Post Debridement (cm) - Depth 0.1 0.1 -Total Square (Post) (cm) 1.50 1.30 -Area of Debridement (cm) - Length 1.5 1.3 -Area of Debridement (cm) - Width 1.0 1.0 -Total Square (Area) (cm) 1.50 1.30 -Tunneling No No -Undermining/Tunneling No No -Circular Undermining No No -Wound/Ulcer Outcome Not Healed Not Healed -Ulcer Cleansing Rinsed/ Rinsed/ Irrigated with Irrigated with Saline Saline -Foul Odor after Cleansing No No -Bioengineered Tissue No No -Bleeding Controlled with Pressure Pressure -Treatment Response Procedure Procedure Tolerated Well Tolerated Well -Offloading No No -Debridement - Subq, 1st 20sq cm Yes Yes Pain Scale: 0-10 Numeric Is Patient Pain Free? Yes Yes WC - Nurse 3 - General Ulcer D/C NN Start: 05/08/22 09:55 Freq: Status: Active Protocol: Activity Type Activity Date Activity User E-sign Co-sign Detail Recorded Client Recorded Date Recorded By Document 05/08/22 10:38 [facility] [id number] 05/08/22 10:39 [facility] Document 05/29/22 11:31 [facility] [id number] 05/29/22 11:35 [facility] 05/08/22 05/29/22 10:38 11:31 Wound Care Center Nurse 3 #1 right mid-back -Ulcer Cleansing Rinsed/ Rinsed/ Irrigated with Irrigated with Saline Saline -Foul Odor after Cleansing No No -Primary Dressing Applied Aquacel Extra, NonAdherent NonAdherent Contact Layer, Contact Layer, Mepilex Border Mepilex Border -Other Dressing escobar -Aquacel Extra 1 -Mepilex Border 1 1 Treatment Response Procedure Procedure Tolerated Well Tolerated Well Pain Scale: 0-10 Numeric Is Patient Pain Free? Yes Yes WC - Visit Discharge Discharge Condition Stable Stable Ambulatory Status Wheelchair Wheelchair Transportation Private Auto Private Auto Accompanied by AIDE caregiver Assessment/Plan Assessment/Plan (1) Nonhealing nonsurgical wound: CODE(S): T14.8XXA - Other injury of unspecified body region, initial encounter PLAN: Wash the area with antibacterial soap and apply Aquacel extra to the wound base moistened with Adaptic over top and a foam dressing. We will encourage patient not to sleep in her lift chair. Cultures obtained will call with results. follow-up in 1 weeks (2) Diabetes mellitus: CODE(S): E11.9 - Type 2 diabetes mellitus without complications (3) Debility: CODE(S): R53.81 - Other malaise
[2022-06-04 10:46] VITALS: BP 115/61; PULSE 80; RESP 18; TEMP 36.3; BMI 32.9
--- NOTE | 2022-06-04 12:09 | PCM.WC.HP ---
History of Present Illness Date of Service: 06/04/22 Chief Complaint: Follow-up on right lower back wound History of Wound: This is an 87-year-old female with a pressure wound on the right posterior flank. It has been present for a lengthy period of time. Patient has recently [facility] under [facility] Due to concerns regarding wound infection, cultures were recently performed, which were positive for Enterococcus faecalis and Staphylococcus epidermidis. The patient is currently on a 10-day course of linezolid 600 mg po twice daily. The patient has been evaluated with regard to her wound by her primary care physician, Dr. Henson, Dr. Suze Ferrara, oil well cable tool operator, and a surgeon at the [facility]. According to the patient's primary caregiver, who is not related, none of her [facility] providers or Dr. Ferrara have provided clarity as to the source of the patient's wound. The [facility] surgeon indicated it was a lipoma, and Dr. Ferrara suggested it to be scar tissue. The patient is currently using Escobar and Adaptic topically, applied on a daily basis. The patient is nonambulatory, spending a large portion of each day sitting in 1 of 2 chairs at her home. She also sleeps in a chair. Patient is profoundly kyphotic. Patient has recently undergone ultrasonography of the involved area, performed at [facility] Medical History Acute GI bleeding Chronic renal disease, stage 3, moderately decreased glomerular filtration rate (GFR) between 30-59 mL/min/1.73 square meter Chronic renal disease, stage III Colitis Colitis Congestive heart failure (CHF) Depressed Depression Diabetes mellitus Diastolic CHF, chronic Essential hypertension First degree AV block GERD (gastroesophageal reflux disease) GI bleed Gout Gout Gout Heart block AV first degree History of GI bleed Hypothyroidism Kidney disease Non-smoker Osteoporosis Osteoporosis Premature atrial contractions Premature atrial contractions Premature supraventricular beats Premature ventricular contraction Pressure ulcer of back PVCs (premature ventricular contractions) Type 2 diabetes mellitus Ventricular ectopy Home Medications allopurinol 100 mg tablet 100 mg PO DAILYCM gout 12/04/13 [History Last Taken 07/04/21] folic acid 1 mg tablet 1 mg PO BIDCM supplement 12/04/13 [History Last Taken 07/04/21] biotin 10,000 mcg capsule 5,000 mcg PO DAILY supplement 03/10/16 [History Last Taken 07/04/21] montelukast 10 mg tablet 10 mg PO QHS allergies 03/10/16 [History Last Taken 07/03/21] docusate sodium 100 mg capsule 100 mg PO BID stool softener 03/15/16 [History Last Taken 07/04/21] multivit with doqmlqkm-qwpl-MR-lutein 8 mg iron-400 mcg-300 mcg tablet 1 ea PO DAILY vitamin 10/17/16 [History Last Taken 07/04/21] cholecalciferol (vitamin D3) 1,250 mcg (50,000 unit) capsule 50,000 unit PO QMONTH supplement 05/25/18 [History Last Taken 06/05/21] insulin aspart U-100 100 unit/mL (3 mL) subcutaneous pen 4 unit subcut 0700,1200,1700 insulin 05/25/18 [History Last Taken 07/04/21] insulin glargine 100 unit/mL (3 mL) subcutaneous pen 6 unit subcut QHS insulin 05/26/19 [History Last Taken 07/04/21] levothyroxine 112 mcg tablet 100 mcg PO DAILY thyroid 12/25/19 [History Last Taken 07/04/21] cimetidine 400 mg tablet 800 mg PO DAILY PRN upset stomach 07/04/21 [History Last Taken Unknown] fluticasone propionate 50 mcg/actuation nasal spray,suspension 2 spray NASAL DAILY allergies 07/06/21 [History Last Taken Unknown] furosemide 40 mg tablet 40 mg PO DAILY water pill 07/06/21 [History Last Taken Unknown] melatonin 3 mg tablet 3 mg PO QHS PRN PRN Insomnia #0 tabs 07/06/21 [Rx Last Taken Unknown] nystatin 100,000 unit/gram topical powder (Nyamyc) 1 applic topical BID skin protectant 07/06/21 [History Last Taken Unknown] acetaminophen 500 mg tablet 1,000 mg PO Q6H PRN PRN Pain Score 1-5 #0 tabs 07/19/21 [Rx Last Taken Unknown] cholecalciferol (vitamin D3) 25 mcg (1,000 unit) tablet 25 mcg PO 0800 #0 tabs 07/19/21 [Rx Last Taken Unknown] losartan 25 mg tablet 25 mg PO DAILY #0 tabs 07/19/21 [Rx Last Taken Unknown] ondansetron 4 mg disintegrating tablet 4 mg PO Q8H PRN nausea and vomiting 30 days #90 tabs 07/19/21 [Rx Last Taken Unknown] oxycodone 5 mg tablet 10 mg PO Q8H PRN PRN PAIN 1-10 3 days #18 tabs 07/19/21 [Rx Last Taken Unknown] pantoprazole 40 mg tablet,delayed release 40 mg PO DAILY 30 days #30 tabs 07/19/21 [Rx Last Taken Unknown] amlodipine 10 mg tablet (Norvasc) 5 mg PO DAILY 04/25/22 [History Last Taken Unknown] aspirin 81 mg tablet,delayed release (Adult Low Dose Aspirin) 81 mg PO DAILY 04/25/22 [History Last Taken Unknown] meclizine 12.5 mg tablet 12.5 mg PO BID PRN Nausea 04/25/22 [History Last Taken Unknown] polysaccharide iron complex 150 mg iron capsule (iFerex 150) 150 mg PO .qod 04/25/22 [History Last Taken Unknown] Allergy/AdvReac Type Severity Reaction Status Date / Time shellfish derived Allergy Severe Anaphylaxis Verified 04/25/22 11:11 hydrochlorothiazide Allergy Unknown Verified 04/25/22 11:11 [From Prinzide] Iodinated Contrast Media Allergy Anaphylaxis Verified 04/25/22 11:11 [Iodinated Contrast Media - IV Dye] lisinopril [From Prinzide] Allergy Unknown Verified 04/25/22 11:11 neomycin [Neomycin] Allergy Unknown Verified 04/25/22 11:11 guaifenesin [From Mucinex] AdvReac Severe PT UNSURE Verified 04/25/22 11:11 OF REACTION Family History Father CVA (cerebral vascular accident) Myocardial infarction Heart disease Mother Cancer Brother Pacemaker Surgical History History of appendectomy History of appendectomy History of back surgery History of back surgery History of cholecystectomy History of cholecystectomy History of tonsillectomy History of tonsillectomy Social History household members: none Smoking Status: Never smoker alcohol intake: never caffeine: Yes Type: coffee Number of servings: 4 Vital Signs Vital Signs Vital Signs: 06/04/22 10:46 Temperature 97.4 F L Temperature Source Temporal Pulse Rate 80 Respiratory Rate 18 Blood Pressure 115/61 Blood Pressure Mean 79 Blood Pressure Source Monitor Weight Weight: 180 lb Body Mass Index (BMI) 32.9 Physical Exam Const alert, oriented x3, no apparent distress and well nourished Constitutional Narrative: The patient appears frail and elderly. The profoundly kyphotic posture is noted. General Appearance: cooperative, comfortable, well kempt and well developed Orientation / Consciousness: awake, oriented to person, oriented to place and oriented to time HEENT normocephalic and head/scalp atraumatic Head and Scalp: normal to inspection, normocephalic, atraumatic and other Other Details: Alopecia is noted. Face and Sinus: normal facial exam External Ear: external ears normal Eyes PERRL and EOMs intact bilaterally General Eye: normal appearance of both eyes Resp normal respiratory effort, normal air movement, no retractions and no use of accessory muscles Effort and Inspection: able to speak in complete sentences Extremity no calf tenderness Extremity Narrative: Bilateral lower extremity swelling and edema are noted. General Extremity: Negative for clubbing or cyanosis Skin Wound Narrative: A superficial wound is noted on the patient's right posterior flank. There is mild periwound erythema. There is a moderate amount of bioburden. Dimensions are documented elsewhere. Neuro oriented x3, CN's II-XII intact bilaterally, moves all extremities and no focal motor deficits Sensorium / Orientation: awake, alert, oriented to person, oriented to place and oriented to time Speech: speech normal Psych Appearance: grossly normal and appropriate Attitude: calm Activity / Motor Behavior: appropriate eye contact Speech: normal speech Mood & Affect: euthymic mood Thought Process: normal thought process Thought Content: normal thought content Attention / Concentration: attention grossly intact Debridement Note Debridement Note Wound debrided: Right posterior flank Laterality: Right Wound Grade/Stage: Stage 3 pressure ulcer Type of Debridement: Excisional debridement Anesthesia Used: 5% Lidocaine Gel Depth: Down to and including healthy tissue and in the subcutaneous layer Percentage of wound debrided: 100 Instrument Used: 5mm curette Tissue Removed: Bioburden Severity: Fat Layer Exposed Amount of bleeding with debridement: Mild Bleeding Controlled with: Compression and gauze Patient tolerated procedure: Patient tolerated procedure well Post-Debridement Measurements and Additional Note: Post-Debridement Measurements/Treatment WC - Nurse 1 - General Ulcer Assessment Start: 05/08/22 09:55 Freq: Status: Active Protocol: DUYEN.LOWEXBetty Activity Type Activity Date Activity User E-sign Co-sign Detail Recorded Client Recorded Date Recorded By Document 05/08/22 09:56 AK [id number] 05/08/22 10:07 AK Document 05/29/22 11:09 AK [id number] 05/29/22 11:14 AK Document 06/04/22 10:46 DL [id number] 06/04/22 10:54 DL 05/08/22 05/29/22 06/04/22 09:56 11:09 10:46 WC - Today's Visit Information Type of service Initial Visit Follow-up Visit Follow-up Visit (Physician/AFFILIATE MARKETING COORDINATOR (Physician/AFFILIATE MARKETING COORDINATOR ) ) Arrival Mode Wheelchair Wheelchair Wheelchair Transfer Assistance None Accompanied by caregiver Patient Identification Verified (Name & Yes Yes Yes ) Patient Requires Transmission-Based No No No Precautions Safety Precautions NA Finger Stick Blood Sugar(mg/dl) (if 97 indicated): Blood Sugar Stated by Patient Height and Weight Height 5 ft 2 in Weight 180 lb Weight in Pounds 180.0 lbs Body Mass Index (BMI) 32.9 32.9 32.9 BMI Classification Obese Obese Obese BSA - Teri 1.83 Vital Signs Temperature (97.8 F-99.1 F) 97.2 F L 97.2 F L 97.4 F L Temperature Source Temporal Temporal Temporal Pulse Rate (60-100) 79 91 80 Pulse Location Monitor Monitor Monitor Respiratory Rate (12-18) 18 Respiratory rate source Observation Blood Pressure (90/60-120/80) 120/56 L 160/75 H 115/61 Blood Pressure Mean 77 103 79 Source Monitor Monitor Monitor History Since Last Visit- (Skip if this is Patient's initial visit) Have you changed medications since your No No last visit? Any new allergies or adverse reactions No No Had a fall/change in ADL's that may No No increase risk of falls Signs or symptoms of abuse and/or No No neglect since last visit Have you been in the hospital since your No No last visit? Has dressing in place as prescribed Yes Yes Has compression in place as prescribed N/A N/A Has offloadiing in place as prescribed N/A Yes Experienced any changes in pain level or No No management Left Footwear Regular Shoe Regular Shoe Right Footwear Regular Shoe Regular Shoe Pain Scale: 0-10 Numeric Is Patient Pain Free? Yes No Yes WC - Nurse 1 - General Ulcer Measurement Start: 05/08/22 09:55 Freq: Status: Active Protocol: Activity Type Activity Date Activity User E-sign Co-sign Detail Recorded Client Recorded Date Recorded By Document 05/08/22 09:56 AK [id number] 05/08/22 10:07 AK Document 05/29/22 11:09 AK [id number] 05/29/22 11:14 AK Document 06/04/22 10:46 DL [id number] 06/04/22 10:54 DL 05/08/22 05/29/22 06/04/22 09:56 11:09 10:46 Wound Center Nurse 1 #1 right mid-back -Combined with other wound No No -Current Size (cm) - Length 1.7 1 1.2 -Current Size (cm) - Width 1 1 0.9 -Current Size (cm) - Depth 0.1 0.1 0.1 -Total Square Cm 1.7 1 1.08 -Date of Last Picture (Recall this 05/08/22 05/29/22 field) -Photo Taken Yes Yes Yes -Tunneling No No -Undermining/Tunneling No No -Circular Undermining No No -Change in Wound Grade/Stage No No -Exudate Amt None Present Medium None Present -Exudate Type Serosanguineous -Wound Margin Distinct, Distinct, Distinct, Outline Outline Outline Attached Attached Attached -Granulation Amt None Present (0 Small (1-33%) Small (1-33%) %) -Granulation Quality N/A Kinross Kinross -Slough/Fibrin No Yes -Necrosis Amt None Present (0 Large (67-100%) Large (67-100%) %) -Necrotic Tissue Type Adherent Slough Adherent Slough -Structure Exposed N/A N/A N/A -Texture (Ericka-wound Skin Appearance) No Abnormality, No Abnormality, Scarring Assessed Assessed -Moisture (Ericka-wound Skin Appearance) No Abnormality, No Abnormality, No Abnormality Assessed Assessed -Color (Ericka-wound Skin Appearance) Erythema Assessed, No Abnormality Erythema -Temperature (Ericka-wound Skin No Abnormality No Abnormality No Abnormality Appearance) (Pt Warm) (Pt Warm) (Pt Warm) -Tenderness on Palpation (Ericka-wound No No No Skin Appearance) -Ulcer Cleansing Rinsed/ Rinsed/ Rinsed/ Irrigated with Irrigated with Irrigated with Saline Saline Saline -Foul Odor after Cleansing No No No -Anesthetic Used 5% Lidocaine 5% Lidocaine 5% Lidocaine Gel Gel Gel -Wound Comment(s) scabbing WC - Nurse 2 - General Ulcer CM Notes Start: 05/08/22 09:55 Freq: Status: Active Protocol: Activity Type Activity Date Activity User E-sign Co-sign Detail Recorded Client Recorded Date Recorded By Document 05/08/22 10:23 MW [id number] 05/08/22 10:27 MW Document 05/29/22 11:17 MW [id number] 05/29/22 11:22 MW Document 06/04/22 11:29 MW [id number] 06/04/22 11:38 MW 05/08/22 05/29/22 06/04/22 10:23 11:17 11:29 Wound Center Nurse 2 #1 right mid-back -Time 10:25 11:19 11:29 -Correct Patient Yes Yes Yes -Correct Side, Site, Position Yes Yes Yes -Correct Procedure Yes Yes Yes -Procedure Performed Yes Yes Yes -Type of Procedure Debridement Debridement Debridement -Clinical Debridement Subcutaneous Subcutaneous Subcutaneous -Tissue Removed Subcutaneous Subcutaneous Subcutaneous -Post Debridement (cm) - Length 1.5 1.3 1.0 -Post Debridement (cm) - Width 1.0 1.0 0.7 -Post Debridement (cm) - Depth 0.1 0.1 0.1 -Total Square (Post) (cm) 1.50 1.30 0.70 -Area of Debridement (cm) - Length 1.5 1.3 1.0 -Area of Debridement (cm) - Width 1.0 1.0 0.7 -Total Square (Area) (cm) 1.50 1.30 0.70 -Tunneling No No No -Undermining/Tunneling No No No -Circular Undermining No No No -Wound/Ulcer Outcome Not Healed Not Healed Not Healed -Ulcer Cleansing Rinsed/ Rinsed/ Rinsed/ Irrigated with Irrigated with Irrigated with Saline Saline Saline -Foul Odor after Cleansing No No No -Bioengineered Tissue No No No -Bleeding Controlled with Pressure Pressure Pressure -Treatment Response Procedure Procedure Procedure Tolerated Well Tolerated Well Tolerated Well -Offloading No No No -Debridement - Subq, 1st 20sq cm Yes Yes Yes Pain Scale: 0-10 Numeric Is Patient Pain Free? Yes Yes Yes - Nurse 3 - General Ulcer D/C NN Start: 05/08/22 09:55 Freq: Status: Active Protocol: Activity Type Activity Date Activity User E-sign Co-sign Detail Recorded Client Recorded Date Recorded By Document 05/08/22 10:38 [facility] [id number] 05/08/22 10:39 [facility] Document 05/29/22 11:31 BM [id number] 05/29/22 11:35 [facility] Document 06/04/22 11:51 AR [id number] 06/04/22 11:52 AK 05/08/22 05/29/22 06/04/22 10:38 11:31 11:51 [facility] Nurse 3 #1 right mid-back -Ulcer Cleansing Rinsed/ Rinsed/ Rinsed/ Irrigated with Irrigated with Irrigated with Saline Saline Saline -Foul Odor after Cleansing No No No -Negative Pressure Wound Therapy N/A -Primary Dressing Applied Aquacel Extra, NonAdherent NonAdherent NonAdherent Contact Layer, Contact Layer, Contact Layer, Mepilex Border Promogran Mepilex Border Escobar Matter, Mepilex Border -Other Dressing escobar -Aquacel Extra 1 -Mepilex Border 1 1 1 -Promogran Escobar Matter 1 Treatment Response Procedure Procedure Tolerated Well Tolerated Well Pain Scale: 0-10 Numeric Is Patient Pain Free? Yes Yes Yes - Visit Discharge Discharge Condition Stable Stable Stable Ambulatory Status Wheelchair Wheelchair Wheelchair Transportation Private Auto Private Auto Private Auto Accompanied by AIDE caregiver caregiver Medication Reconcilliation completed & Yes provided to patient/care provider Clinical Summary of Care Provided Yes Assessment/Plan Assessment/Plan (1) Pressure ulcer of back: CODE(S): L89.109 - Pressure ulcer of unspecified part of back, unspecified stage QUALIFIERS: Pressure injury stage: stage 1 Qualified Code(s): L89.101 - Pressure ulcer of unspecified part of back, stage 1 (2) Debility: CODE(S): R53.81 - Other malaise (3) Failure to thrive: QUALIFIERS: Failure to thrive age range: in adult Qualified Code(s): R62.7 - Adult failure to thrive (4) Essential hypertension: CODE(S): I10 - Essential (primary) hypertension (5) Gastroesophageal reflux disease: CODE(S): K21.9 - Gastro-esophageal reflux disease without esophagitis (6) Hypothyroidism: CODE(S): E03.9 - Hypothyroidism, unspecified (7) Diabetes mellitus: CODE(S): E11.9 - Type 2 diabetes mellitus without complications (8) Vitamin D deficiency: CODE(S): E55.9 - Vitamin D deficiency, unspecified (9) Chronic diastolic congestive heart failure: CODE(S): I50.32 - Chronic diastolic (congestive) heart failure (10) Chronic renal disease, stage III: CODE(S): N18.30 - Chronic kidney disease, stage 3 unspecified (11) Heart block AV first degree: CODE(S): I44.0 - Atrioventricular block, first degree (12) Gout: CODE(S): M10.9 - Gout, unspecified (13) Osteoporosis: CODE(S): M81.0 - Age-related osteoporosis without current pathological fracture (14) Premature atrial contractions: CODE(S): I49.1 - Atrial premature depolarization (15) PVCs (premature ventricular contractions): CODE(S): I49.3 - Ventricular premature depolarization (16) History of appendectomy: CODE(S): Z90.49 - Acquired absence of other specified parts of digestive tract (17) History of back surgery: CODE(S): Z98.890 - Other specified postprocedural states (18) History of cholecystectomy: CODE(S): Z90.49 - Acquired absence of other specified parts of digestive tract (19) History of tonsillectomy: CODE(S): Z90.89 - Acquired absence of other organs PLAN: Plan This is an 87-year-old female with a stage III pressure ulceration on the right posterior flank. It appears as though she has recently undergone an ultrasound examination of the area at [facility]. We are to seek copies of this diagnostic study result, as well as other records which may be available. Patient has been encouraged to optimize her nutritional intake. If recent laboratory studies have not been performed, these will be obtained to assess the patient's nutritional status and other factors related to wound healing. It is highly suspected that the wound on the patient's right posterior flank is related to pressure phenomenon. The patient is extremely kyphotic, and sits in the chair throughout the preponderance of each day. There is suspicion that she is leaning to the right, perhaps against an armrest or other firm portion of her chair, resulting in pressure to the area involved. Efforts are to be made to offload pressure to this area. We are to continue the use of Escobar and Adaptic topically. She is to continue the entire course of linezolid, as previously prescribed. She has been advised to elevate her lower extremities to heart level, or higher, given that swelling and edema are noted in her lower extremities bilaterally. The patient is to return in 1 week for reassessment. Total time: 62 minutes
== END 2022-06-04 23:59 | disposition home or self-care (01) ==
LOC: WC 10:45
PROVIDERS: PCP Family Medicine; Visit Provider Surgery
DX: L89.133 Pressure ulcer of right lower back, stage 3 (principal); I50.32 Chronic diastolic (congestive) heart failure; I13.0 Hypertensive heart and chronic kidney disease with heart failure and stage 1 through stage 4 chronic kidney disease, or unspecified chronic kidney disease; E11.22 Type 2 diabetes mellitus with diabetic chronic kidney disease; Z79.4 Long term (current) use of insulin; N18.30 Chronic kidney disease, stage 3 unspecified; M40.209 Unspecified kyphosis, site unspecified; M10.9 Gout, unspecified; E55.9 Vitamin D deficiency, unspecified; R62.7 Adult failure to thrive; E03.9 Hypothyroidism, unspecified; M81.0 Age-related osteoporosis without current pathological fracture; K21.9 Gastro-esophageal reflux disease without esophagitis; Z79.82 Long term (current) use of aspirin; Z79.84 Long term (current) use of oral hypoglycemic drugs; Z79.890 Hormone replacement therapy; Z79.899 Other long term (current) drug therapy
CPT/HCPCS: 11042; 87070; 87075; 87077; 87186; 87205; 99203; G0463

== ENCOUNTER 2022-06-11 09:25 | Outpatient (RCR) | payer MEDICARE, SELFPAY ==
[2022-06-05 00:08] VITALS: BP 115/61; PULSE 80; RESP 18; TEMP 36.3; BMI 32.9
[2022-06-11 09:33] VITALS: BP 153/46; PULSE 77; RESP 18; TEMP 35.9; BMI 32.9
--- NOTE | 2022-06-11 13:34 | PCM.WC.HP ---
History of Present Illness Date of Service: 06/11/22 Chief Complaint: Right posterior flank wound History of Wound: This is an 87-year-old female with a pressure wound on the right posterior flank. It has been present for a lengthy period of time. The patient has recently [facility] under [facility] Due to concerns regarding wound infection, cultures were recently performed, which were positive for Enterococcus faecalis and Staphylococcus epidermidis. The patient has recently completed a 10-day course of linezolid 600 mg po twice daily. The patient has been evaluated with regard to her wound by her primary care physician, Dr. Henson, Dr. Suze Ferrara, account financial manager, and a surgeon at the [facility]. According to the patient's primary caregiver, who is not related, none of her [facility] providers or Dr. Ferrara have provided clarity as to the source of the patient's wound. The [facility] surgeon indicated it was a lipoma, and Dr. Ferrara suggested it to be scar tissue. Records from [facility] include a dermatopathology report from March 26, 2022, which reveals no evidence of malignancy. The patient is currently using Karly and Adaptic topically, applied on a daily basis. The patient is nonambulatory, spending a large portion of each day sitting in 1 of 2 chairs at her home. She also sleeps in a chair. Patient is profoundly kyphotic. Patient has recently undergone ultrasonography of the involved area, performed at [facility] Medical History (Updated 06/11/22 @ 13:[address] Lino Osuna MD) Acute GI bleeding Chronic renal disease, stage 3, moderately decreased glomerular filtration rate (GFR) between 30-59 mL/min/1.73 square meter Chronic renal disease, stage III Colitis Colitis Congestive heart failure (CHF) Depressed Depression Diabetes mellitus Diastolic CHF, chronic Essential hypertension First degree AV block GERD (gastroesophageal reflux disease) GI bleed Gout Gout Gout Heart block AV first degree History of GI bleed Hypothyroidism Kidney disease Kyphoscoliosis Non-smoker Osteoporosis Osteoporosis Premature atrial contractions Premature atrial contractions Premature supraventricular beats Premature ventricular contraction Pressure ulcer of back PVCs (premature ventricular contractions) Type 2 diabetes mellitus Ventricular ectopy Home Medications allopurinol 100 mg tablet 100 mg PO DAILYCM gout 12/04/13 [History Last Taken 07/04/21] folic acid 1 mg tablet 1 mg PO BIDCM supplement 12/04/13 [History Last Taken 07/04/21] biotin 10,000 mcg capsule 5,000 mcg PO DAILY supplement 03/10/16 [History Last Taken 07/04/21] montelukast 10 mg tablet 10 mg PO QHS allergies 03/10/16 [History Last Taken 07/03/21] docusate sodium 100 mg capsule 100 mg PO BID stool softener 03/15/16 [History Last Taken 07/04/21] multivit with [id number]-PV-lutein 8 mg iron-400 mcg-300 mcg tablet 1 ea PO DAILY vitamin 10/17/16 [History Last Taken 07/04/21] cholecalciferol (vitamin D3) 1,250 mcg (50,000 unit) capsule 50,000 unit PO QMONTH supplement 05/25/18 [History Last Taken 06/05/21] insulin aspart U-100 100 unit/mL (3 mL) subcutaneous pen 4 unit subcut 0700,1200,1700 insulin 05/25/18 [History Last Taken 07/04/21] insulin glargine 100 unit/mL (3 mL) subcutaneous pen 6 unit subcut QHS insulin 05/26/19 [History Last Taken 07/04/21] levothyroxine 112 mcg tablet 100 mcg PO DAILY thyroid 12/25/19 [History Last Taken 07/04/21] cimetidine 400 mg tablet 800 mg PO DAILY PRN upset stomach 07/04/21 [History Last Taken Unknown] fluticasone propionate 50 mcg/actuation nasal spray,suspension 2 spray NASAL DAILY allergies 07/06/21 [History Last Taken Unknown] furosemide 40 mg tablet 40 mg PO DAILY water pill 07/06/21 [History Last Taken Unknown] melatonin 3 mg tablet 3 mg PO QHS PRN PRN Insomnia #0 tabs 07/06/21 [Rx Last Taken Unknown] nystatin 100,000 unit/gram topical powder (Nyamyc) 1 applic topical BID skin protectant 07/06/21 [History Last Taken Unknown] acetaminophen 500 mg tablet 1,000 mg PO Q6H PRN PRN Pain Score 1-5 #0 tabs 07/19/21 [Rx Last Taken Unknown] cholecalciferol (vitamin D3) 25 mcg (1,000 unit) tablet 25 mcg PO 0800 #0 tabs 07/19/21 [Rx Last Taken Unknown] losartan 25 mg tablet 25 mg PO DAILY #0 tabs 07/19/21 [Rx Last Taken Unknown] ondansetron 4 mg disintegrating tablet 4 mg PO Q8H PRN nausea and vomiting 30 days #90 tabs 07/19/21 [Rx Last Taken Unknown] oxycodone 5 mg tablet 10 mg PO Q8H PRN PRN PAIN 1-10 3 days #18 tabs 07/19/21 [Rx Last Taken Unknown] pantoprazole 40 mg tablet,delayed release 40 mg PO DAILY 30 days #30 tabs 07/19/21 [Rx Last Taken Unknown] amlodipine 10 mg tablet (Norvasc) 5 mg PO DAILY 04/25/22 [History Last Taken Unknown] aspirin 81 mg tablet,delayed release (Adult Low Dose Aspirin) 81 mg PO DAILY 04/25/22 [History Last Taken Unknown] meclizine 12.5 mg tablet 12.5 mg PO BID PRN Nausea 04/25/22 [History Last Taken Unknown] polysaccharide iron complex 150 mg iron capsule (iFerex 150) 150 mg PO .qod 04/25/22 [History Last Taken Unknown] Allergy/AdvReac Type Severity Reaction Status Date / Time shellfish derived Allergy Severe Anaphylaxis Verified 04/25/22 11:11 hydrochlorothiazide Allergy Unknown Verified 04/25/22 11:11 [From Prinzide] Iodinated Contrast Media Allergy Anaphylaxis Verified 04/25/22 11:11 [Iodinated Contrast Media - IV Dye] lisinopril [From Prinzide] Allergy Unknown Verified 04/25/22 11:11 neomycin [Neomycin] Allergy Unknown Verified 04/25/22 11:11 guaifenesin [From Mucinex] AdvReac Severe PT UNSURE Verified 04/25/22 11:11 OF REACTION Family History Father CVA (cerebral vascular accident) Myocardial infarction Heart disease Mother Cancer Brother Pacemaker Surgical History History of appendectomy History of appendectomy History of back surgery History of back surgery History of cholecystectomy History of cholecystectomy History of tonsillectomy History of tonsillectomy Social History household members: none Smoking Status: Never smoker alcohol intake: never caffeine: Yes Type: coffee Number of servings: 4 Vital Signs Vital Signs Vital Signs: 06/11/22 09:33 Temperature 96.6 F L Temperature Source Temporal Pulse Rate 77 Respiratory Rate 18 Blood Pressure 153/46 H Blood Pressure Mean 81 Blood Pressure Source Monitor Weight Weight: 180 lb Body Mass Index (BMI) 32.9 Physical Exam Const alert, oriented x3, no apparent distress and well nourished Constitutional Narrative: The patient appears frail and elderly. The profoundly kyphotic posture is noted. General Appearance: cooperative, comfortable, well kempt and well developed Orientation / Consciousness: awake, oriented to person, oriented to place and oriented to time HEENT normocephalic and head/scalp atraumatic Head and Scalp: normal to inspection, normocephalic, atraumatic and other Other Details: Alopecia is noted. Face and Sinus: normal facial exam External Ear: external ears normal Eyes PERRL and EOMs intact bilaterally General Eye: normal appearance of both eyes Resp normal respiratory effort, normal air movement, no retractions and no use of accessory muscles Effort and Inspection: able to speak in complete sentences Extremity no calf tenderness Extremity Narrative: Bilateral lower extremity swelling and edema are noted. General Extremity: Negative for clubbing or cyanosis Skin Wound Narrative: A superficial wound is noted on the patient's right posterior flank. There is mild periwound erythema. There is a moderate amount of bioburden. Dimensions are documented elsewhere. There is no evidence of infection or cellulitis. Neuro oriented x3, CN's II-XII intact bilaterally, moves all extremities and no focal motor deficits Sensorium / Orientation: awake, alert, oriented to person, oriented to place and oriented to time Speech: speech normal Psych Appearance: grossly normal and appropriate Attitude: calm Activity / Motor Behavior: appropriate eye contact Speech: normal speech Mood & Affect: euthymic mood Thought Process: normal thought process Thought Content: normal thought content Attention / Concentration: attention grossly intact Debridement Note Debridement Note Wound debrided: Right posterior flank Laterality: Right Wound Grade/Stage: Stage 3 pressure ulcer Type of Debridement: Excisional debridement Anesthesia Used: 5% Lidocaine Gel Depth: Down to and including healthy tissue and in the subcutaneous layer Percentage of wound debrided: 100 Instrument Used: 5mm curette Tissue Removed: Bioburden Severity: Fat Layer Exposed Amount of bleeding with debridement: Mild Bleeding Controlled with: Compression and gauze Patient tolerated procedure: Patient tolerated procedure well Post-Debridement Measurements and Additional Note: Post-Debridement Measurements/Treatment - Nurse 1 - General Ulcer Assessment Start: 06/11/22 09:32 Freq: Status: Active Protocol: AMY Activity Type Activity Date Activity User E-sign Co-sign Detail Recorded Client Recorded Date Recorded By Document 06/11/22 09:33 CLAUDIO [id number] 06/11/22 09:36 WV 06/11/22 09:33 WC - Today's Visit Information Type of service Follow-up Visit (Physician/[employer]PER ) Arrival Mode Wheelchair Patient Identification Verified (Name & Yes ) Patient Requires Transmission-Based No Precautions Finger Stick Blood Sugar(mg/dl) (if 117 indicated): Blood Sugar Stated by Patient Height and Weight Body Mass Index (BMI) 32.9 BMI Classification Obese Vital Signs Temperature (97.8 F-99.1 F) 96.6 F L Temperature Source Temporal Pulse Rate (60-100) 77 Pulse Location Monitor Respiratory Rate (12-18) 18 Respiratory rate source Observation Blood Pressure (90/60-120/80) 153/46 H Blood Pressure Mean 81 Source Monitor History Since Last Visit- (Skip if this is Patient's initial visit) Have you changed medications since your No last visit? Any new allergies or adverse reactions No Had a fall/change in ADL's that may No increase risk of falls Signs or symptoms of abuse and/or No neglect since last visit Have you been in the hospital since your No last visit? Has dressing in place as prescribed Yes Has compression in place as prescribed N/A Has offloadiing in place as prescribed Yes Experienced any changes in pain level or No management Pain Scale: 0-10 Numeric Is Patient Pain Free? Yes - Nurse 1 - General Ulcer Measurement Start: 06/11/22 09:32 Freq: Status: Active Protocol: Activity Type Activity Date Activity User E-sign Co-sign Detail Recorded Client Recorded Date Recorded By Document 06/11/22 09:33 CLAUDIO [id number] 06/11/22 09:36 CLAUDIO 06/11/22 09:33 Wound Center Nurse 1 #1 right mid-back -Current Size (cm) - Length 1 -Current Size (cm) - Width 1 -Current Size (cm) - Depth 0.1 -Total Square Cm 1 -Photo Taken Yes -Exudate Amt Small -Exudate Type Serosanguineous -Wound Margin Distinct, Outline Attached -Granulation Amt Small (1-33%) -Granulation Quality [employer] -Necrosis Amt Large (67-100%) -Necrotic Tissue Type Adherent Slough -Structure Exposed N/A -Texture (Erikca-wound Skin Appearance) Scarring -Moisture (Ericka-wound Skin Appearance) No Abnormality -Color (Ericka-wound Skin Appearance) No Abnormality -Temperature (Ericka-wound Skin No Abnormality Appearance) (Pt Warm) -Tenderness on Palpation (Ericka-wound No Skin Appearance) -Ulcer Cleansing Rinsed/ Irrigated with Saline -Foul Odor after Cleansing No -Anesthetic Used 5% Lidocaine Gel WC - Nurse 2 - General Ulcer CM Notes Start: 06/11/22 09:32 Freq: Status: Active Protocol: Activity Type Activity Date Activity User E-sign Co-sign Detail Recorded Client Recorded Date Recorded By Document 06/11/22 11:31 PL [id number] 06/11/22 11:32 PL 06/11/22 11:31 Wound Center Nurse 2 -Time 09:44 -Correct Patient Yes -Correct Side, Site, Position Yes -Correct Procedure Yes -Procedure Performed Yes -Type of Procedure Debridement -Clinical Debridement Subcutaneous -Tissue Removed Subcutaneous -Post Debridement (cm) - Length 1.0 -Post Debridement (cm) - Width 1.0 -Post Debridement (cm) - Depth 0.1 -Total Square (Post) (cm) 1.00 -Area of Debridement (cm) - Length 1.0 -Area of Debridement (cm) - Width 1.0 -Total Square (Area) (cm) 1.00 -Tunneling No -Undermining/Tunneling No -Circular Undermining No -Wound/Ulcer Outcome Not Healed -Ulcer Cleansing Rinsed/ Irrigated with Saline -Foul Odor after Cleansing No -Bioengineered Tissue No -Bleeding Controlled with Pressure -Treatment Response Procedure Tolerated Well -Debridement - Subq, 1st 20sq cm Yes Pain Scale: 0-10 Numeric Is Patient Pain Free? Yes DUYEN - Nurse 3 - General Ulcer D/C NN Start: 06/11/22 09:32 Freq: Status: Active Protocol: Activity Type Activity Date Activity User E-sign Co-sign Detail Recorded Client Recorded Date Recorded By Document 06/11/22 09:54 DL [id number] 06/11/22 09:56 DL 06/11/22 09:54 W[facility] Care Center Nurse 3 #1 right mid-back -Ulcer Cleansing Rinsed/ Irrigated with Saline -Foul Odor after Cleansing No -Primary Dressing Applied NonAdherent Contact Layer, Promogran Karly Matter, Mepilex Border -Mepilex Border 1 -Promogran Karly Matter 1 Treatment Response Procedure Tolerated Well Pain Scale: 0-10 Numeric Is Patient Pain Free? Yes WC - Visit Discharge Discharge Condition Stable Ambulatory Status Wheelchair Transportation Private Auto Facility Type Home Health Orders Sent Yes Assessment/Plan Assessment/Plan (1) Pressure ulcer of back: CODE(S): L89.109 - Pressure ulcer of unspecified part of back, unspecified stage QUALIFIERS: Pressure injury stage: stage 1 Qualified Code(s): L89.101 - Pressure ulcer of unspecified part of back, stage 1 (2) Kyphoscoliosis: CODE(S): M41.9 - Scoliosis, unspecified (3) Debility: CODE(S): R53.81 - Other malaise (4) Failure to thrive: QUALIFIERS: Failure to thrive age range: in adult Qualified Code(s): R62.7 - Adult failure to thrive (5) Essential hypertension: CODE(S): I10 - Essential (primary) hypertension (6) Gastroesophageal reflux disease: CODE(S): K21.9 - Gastro-esophageal reflux disease without esophagitis (7) Hypothyroidism: CODE(S): E03.9 - Hypothyroidism, unspecified (8) Diabetes mellitus: CODE(S): E11.9 - Type 2 diabetes mellitus without complications (9) Vitamin D deficiency: CODE(S): E55.9 - Vitamin D deficiency, unspecified (10) Chronic diastolic congestive heart failure: CODE(S): I50.32 - Chronic diastolic (congestive) heart failure (11) Chronic renal disease, stage III: CODE(S): N18.30 - Chronic kidney disease, stage 3 unspecified (12) Heart block AV first degree: CODE(S): I44.0 - Atrioventricular block, first degree (13) Gout: CODE(S): M10.9 - Gout, unspecified (14) Osteoporosis: CODE(S): M81.0 - Age-related osteoporosis without current pathological fracture (15) Premature atrial contractions: CODE(S): I49.1 - Atrial premature depolarization (16) PVCs (premature ventricular contractions): CODE(S): I49.3 - Ventricular premature depolarization (17) History of appendectomy: CODE(S): Z90.49 - Acquired absence of other specified parts of digestive tract (18) History of back surgery: CODE(S): Z98.890 - Other specified postprocedural states (19) History of cholecystectomy: CODE(S): Z90.49 - Acquired absence of other specified parts of digestive tract (20) History of tonsillectomy: CODE(S): Z90.89 - Acquired absence of other organs PLAN: Plan This is an 87-year-old female with a stage III pressure ulceration on the right posterior flank. It appears as though she has recently undergone an ultrasound examination of the area at [facility]. We are to seek copies of this diagnostic study result, as well as other records which may be available. The patient has been encouraged to optimize her nutritional intake. If recent laboratory studies have not been performed, these will be obtained to assess the patient's nutritional status and other factors related to wound healing. It is highly suspected that the wound on the patient's right posterior flank is related to pressure phenomenon. The patient has a history of spinal jana insertion for treatment of kyphoscoliosis. Nonetheless, she remains extremely kyphotic, and sits in a chair or wheelchair throughout the day. She is nonambulatory, and she does not and will not sleep in a bed. It appears as though the patient is experiencing pressure phenomenon from her chair against the right posterior flank, the source of her presenting wound. At her last visit, she was advised to implement offloading measures, but her caregiver, at the bedside, indicates that she has refused to do so. We have once again discussed offloading measures in detail. The means by which this can be achieved have been thoroughly explained. The patient and her caregiver have been encouraged to seek some form of foam, pillow, or gel to create a barrier from the armrest or other portions of her chair or wheelchair which may be the source of pressure. There is suspicion that she is leaning to the right, perhaps against an armrest or other firm portion of her chair, resulting in undesired pressure to the area involved. According to her caregiver, the patient has refused to allow placement of a pillow as a source of offloading. We are to continue the use of Karly, Adaptic, and a foam dressing topically. She has been advised to elevate her lower extremities to heart level, or higher, given that swelling and edema are noted in her lower extremities bilaterally. The patient is to return in 1 week for reassessment. Total time: 28 minutes
== END 2022-07-05 23:59 | disposition home or self-care (01) ==
LOC: WC 09:25
PROVIDERS: PCP Family Medicine; Visit Provider Surgery
DX: L89.131 Pressure ulcer of right lower back, stage 1 (principal); I50.32 Chronic diastolic (congestive) heart failure; I13.0 Hypertensive heart and chronic kidney disease with heart failure and stage 1 through stage 4 chronic kidney disease, or unspecified chronic kidney disease; E11.22 Type 2 diabetes mellitus with diabetic chronic kidney disease; Z79.4 Long term (current) use of insulin; N18.30 Chronic kidney disease, stage 3 unspecified; K21.9 Gastro-esophageal reflux disease without esophagitis; E55.9 Vitamin D deficiency, unspecified; I49.3 Ventricular premature depolarization; M41.9 Scoliosis, unspecified; E03.9 Hypothyroidism, unspecified; R53.81 Other malaise; M81.0 Age-related osteoporosis without current pathological fracture; R62.7 Adult failure to thrive; I49.1 Atrial premature depolarization; M10.9 Gout, unspecified; Z79.82 Long term (current) use of aspirin; Z79.890 Hormone replacement therapy; Z79.899 Other long term (current) drug therapy
CPT/HCPCS: 11042

== ENCOUNTER 2022-07-30 11:15 | Outpatient (RCR) | payer MEDICARE, SELFPAY ==
[2022-07-06 00:55] VITALS: BP 153/46; PULSE 77; RESP 18; TEMP 35.9; BMI 32.9
[2022-07-09 11:09] VITALS: BP 141/38; PULSE 70; RESP 20; TEMP 36.4; BMI 32.9
--- NOTE | 2022-07-09 11:43 | HP.PCM_ITS ---
History of Present Illness Date of Service: 07/09/22 Chief Complaint: Right posterior flank wound History of Wound: This is an 87-year-old female with a pressure wound on the right posterior flank. It has been present for a lengthy period of time. The patient has recently [facility] under [facility] Due to concerns regarding wound infection, cultures were recently performed, which were positive for Enterococcus faecalis and Staphylococcus epidermidis. The patient has recently completed a 10-day course of linezolid 600 mg po twice daily. The patient has been evaluated with regard to her wound by her primary care physician, Dr. Henson, Dr. Suze Ferrara, services rep, and a surgeon at the [facility]. According to the patient's primary caregiver, who is not related, none of her [facility] providers or Dr. Ferrara have provided clarity as to the source of the patient's wound. The [facility] surgeon indicated it was a lipoma, and Dr. Ferrara suggested it to be scar tissue. Records from [facility] include a dermat opathology report from March 26, 2022, which reveals no evidence of malignancy. The patient is currently using Karly and Adaptic topically, applied on a daily basis. The patient is nonambulatory, spending a large portion of each day sitting in 1 of 2 chairs at her home. She also sleeps in a chair. Patient is profoundly kyphotic. Patient has recently undergone ultrasonography of the involved area, performed at [facility] Medical History Acute GI bleeding Chronic renal disease, stage 3, moderately decreased glomerular filtration rate (GFR) between 30-59 mL/min/1.73 square meter Chronic renal disease, stage III Colitis Colitis Congestive heart failure (CHF) Depressed Depression Diabetes mellitus Diastolic CHF, chronic Essential hypertension First degree AV block GERD (gastroesophageal reflux disease) GI bleed Gout Gout Gout Heart block AV first degree History of GI bleed Hypothyroidism Kidney disease Kyphoscoliosis Non-smoker Osteoporosis Osteoporosis Premature atrial contractions Premature atrial contractions Premature supraventricular beats Premature ventricular contraction Pressure ulcer of back PVCs (premature ventricular contractions) Type 2 diabetes mellitus Ventricular ectopy Home Medications allopurinol 100 mg tablet 100 mg PO DAILYCM gout 12/04/13 [History Last Taken 07/04/21] folic acid 1 mg tablet 1 mg PO BIDCM supplement 12/04/13 [History Last Taken 07/04/21] biotin 10,000 mcg capsule 5,000 mcg PO DAILY supplement 03/10/16 [History Last Taken 07/04/21] montelukast 10 mg tablet 10 mg PO QHS allergies 03/10/16 [History Last Taken 07/03/21] docusate sodium 100 mg capsule 100 mg PO BID stool softener 03/15/16 [History Last Taken 07/04/21] multivit with eorbhnxj-pqti-OV-lutein 8 mg iron-400 mcg-300 mcg tablet 1 ea PO DAILY vitamin 10/17/16 [History Last Taken 07/04/21] cholecalciferol (vitamin D3) 1,250 mcg (50,000 unit) capsule 50,000 unit PO QMONTH supplement 05/25/18 [History Last Taken 06/05/21] insulin aspart U-100 100 unit/mL (3 mL) subcutaneous pen 4 unit subcut 0700,1200 ,1700 insulin 05/25/18 [History Last Taken 07/04/21] insulin glargine 100 unit/mL (3 mL) subcutaneous pen 6 unit subcut QHS insulin 05/26/19 [History Last Taken 07/04/21] levothyroxine 112 mcg tablet 100 mcg PO DAILY thyroid 12/25/19 [History Last Taken 07/04/21] cimetidine 400 mg tablet 800 mg PO DAILY PRN upset stomach 07/04/21 [History Last Taken Unknown] fluticasone propionate 50 mcg/actuation nasal spray,suspension 2 spray NASAL DAILY allergies 07/06/21 [History Last Taken Unknown] furosemide 40 mg tablet 40 mg PO DAILY water pill 07/06/21 [History Last Taken Unknown] melatonin 3 mg tablet 3 mg PO QHS PRN PRN Insomnia #0 tabs 07/06/21 [Rx Last Taken Unknown] nystatin 100,000 unit/gram topical powder (Nyamyc) 1 applic topical BID skin protectant 07/06/21 [History Last Taken Unknown] acetaminophen 500 mg tablet 1,000 mg PO Q6H PRN PRN Pain Score 1-5 #0 tabs 07/19/21 [Rx Last Taken Unknown] cholecalciferol (vitamin D3) 25 mcg (1,000 unit) tablet 25 mcg PO 0800 #0 tabs 07/19/21 [Rx Last Taken Unknown] losartan 25 mg tablet 25 mg PO DAILY #0 tabs 07/19/21 [Rx Last Taken Unknown] ondansetron 4 mg disintegrating tablet 4 mg PO Q8H PRN nausea and vomiting 30 days #90 tabs 07/19/21 [Rx Last Taken Unknown] oxycodone 5 mg tablet 10 mg PO Q8H PRN PRN PAIN 1-10 3 days #18 tabs 07/19/21 [Rx Last Taken Unknown] pantoprazole 40 mg tablet,delayed release 40 mg PO DAILY 30 days #30 tabs [Rx Last Taken Unknown] amlodipine 10 mg tablet (Norvasc) 5 mg PO DAILY 04/25/22 [History Last Taken Unknown] aspirin 81 mg tablet,delayed release (Adult Low Dose Aspirin) 81 mg PO DAILY 04/25/22 [History Last Taken Unknown] meclizine 12.5 mg tablet 12.5 mg PO BID PRN Nausea 04/25/22 [History Last Taken Unknown] polysaccharide iron complex 150 mg iron capsule (iFerex 150) 150 mg PO .qod 04/07 12/28 [History Last Taken Unknown] Allergy/AdvReac Type Severity Reaction Status Date / Time shellfish derived Allergy Severe Anaphylaxis Verified 04/25/22 11:11 hydrochlorothiazide Allergy Unknown Verified 04/25/22 11:11 [From Prinzide] Iodinated Contrast Media Allergy Anaphylaxis Verified 04/25/22 11:11 [Iodinated Contrast Media - IV Dye] lisinopril [From Prinzide] Allergy Unknown Verified 04/25/22 11:11 neomycin [Neomycin] Allergy Unknown Verified 04/25/22 11:11 guaifenesin [From Mucinex] AdvReac Severe PT UNSURE Verified 04/25/22 11:11 OF REACTION Family History Father CVA (cerebral vascular accident) Myocardial infarction Heart disease Mother Cancer Brother Pacemaker Surgical History History of appendectomy History of appendectomy History of back surgery History of back surgery History of cholecystectomy History of cholecystectomy History of tonsillectomy History of tonsillectomy Social History household members: none Smoking Status: Never smoker alcohol intake: never caffeine: Yes Type: coffee Number of servings: 4 Vital Signs Vital Signs Vital Signs: 07/09/22 11:09 Temperature 97.5 F L Temperature Source Temporal Pulse Rate 70 Respiratory Rate 20 H Blood Pressure 141/38 H Blood Pressure Mean 72 Blood Pressure Source Monitor Weight Weight: 180 lb Body Mass Index (BMI) 32.9 Physical Exam Const alert, oriented x3, no apparent distress and well nourished Constitutional Narrative: The patient appears frail and elderly. A profoundly kyphotic posture is noted. General Appearance: cooperative, comfortable, well kempt and well developed Orientation / Consciousness: awake, oriented to person, oriented to place and oriented to time HEENT normocephalic and head/scalp atraumatic Head and Scalp: normal to inspection, normocephalic, atraumatic and other Other Details: Alopecia is noted. Face and Sinus: normal facial exam External Ear: external ears normal Eyes PERRL and EOMs intact bilaterally General Eye: normal appearance of both eyes Resp normal respiratory effort, normal air movement, no retractions and no use of accessory muscles Effort and Inspection: able to speak in complete sentences Extremity no calf tenderness Extremity Narrative: Bilateral lower extremity swelling and edema are noted. General Extremity: Negative for clubbing or cyanosis Skin Wound Narrative: A superficial wound is noted on the patient's right posterior flank. There is mild periwound erythema. There is a moderate amount of bioburden. Dimensions are documented elsewhere. There is no evidence of infection or cellulitis. There has been little change in recent weeks. Neuro oriented x3, CN's II-XII intact bilaterally, moves all extremities and no focal motor deficits Sensorium / Orientation: awake, alert, oriented to person, oriented to place and oriented to time Speech: speech normal Psych Appearance: grossly normal and appropriate Attitude: calm Activity / Motor Behavior: appropriate eye contact Speech: normal speech Mood & Affect: euthymic mood Thought Process: normal thought process Thought Content: normal thought content Attention / Concentration: attention grossly intact Debridement Note Debridement Note Wound debrided: Right posterior flank Laterality: Right Wound Grade/Stage: Stage 3 pressure ulcer Type of Debridement: Excisional debridement Anesthesia Used: 5% Lidocaine Gel Depth: Down to and including healthy tissue and in the subcutaneous layer Percentage of wound debrided: 100 Instrument Used: 5mm curette Tissue Removed: Bioburden Severity: Fat Layer Exposed Amount of bleeding with debridement: Mild Bleeding Controlled with: Compression and gauze Patient tolerated procedure: Patient tolerated procedure well Post-Debridement Measurements and Additional Note: Post-Debridement Measurements/Treatment - Nurse 1 - General Ulcer Assessment Start: 07/09/22 11:09 Freq: Status: Active Protocol: AMY Activity Type Activity Date Activity User E-sign Co-sign Detail Recorded Client Recorded Date Recorded By Document 07/09/22 11:09 THOMAS [id number] 07/09/22 11:13 DL 07/09/22 11:09 WC - Today's Visit Information Type of service Follow-up Visit (Physician/WATCH INSPECTOR ) Arrival Mode Wheelchair Transfer Assistance None Patient Identification Verified (Name & Yes ) Patient Requires Transmission-Based No Precautions Height and Weight Body Mass Index (BMI) 32.9 BMI Classification Obese Vital Signs Temperature (97.8 F-99.1 F) 97.5 F L Temperature Source Temporal Pulse Rate (60-100) 70 Pulse Location Monitor Respiratory Rate (12-18) 20 H Respiratory rate source Observation Blood Pressure (90/60-120/80) 141/38 H Blood Pressure Mean 72 Source Monitor History Since Last Visit- (Skip if this is Patient's initial visit) Have you changed medications since your No last visit? Any new allergies or adverse reactions No Had a fall/change in ADL's that may No increase risk of falls Signs or symptoms of abuse and/or No neglect since last visit Have you been in the hospital since your No last visit? Has dressing in place as prescribed Yes Has compression in place as prescribed N/A Has offloadiing in place as prescribed Yes Experienced any changes in pain level or No management Pain Scale: 0-10 Numeric Is Patient Pain Free? Yes - Nurse 1 - General Ulcer Measurement Start: 07/09/22 11:09 Freq: Status: Active Protocol: Activity Type Activity Date Activity User E-sign Co-sign Detail Recorded Client Recorded Date Recorded By Document 07/09/22 11:09 DL [id number] 07/09/22 11:13 DL 07/09/22 11:09 Wound Center Nurse 1 #1 right mid-back -Current Size (cm) - Length 1.5 -Current Size (cm) - Width 0.7 -Current Size (cm) - Depth 0.1 -Total Square Cm 1.05 -Photo Taken Yes -Exudate Amt Small -Exudate Type Serosanguineous -Wound Margin Distinct, Outline Attached -Granulation Amt Small (1-33%) -Granulation Quality [place] -Necrosis Amt Large (67-100%) -Necrotic Tissue Type Adherent Slough -Structure Exposed N/A -Texture (Ericka-wound Skin Appearance) Scarring,Rash -Moisture (Ericka-wound Skin Appearance) No Abnormality -Color (Ericka-wound Skin Appearance) No Abnormality -Temperature (Ericka-wound Skin No Abnormality Appearance) (Pt Warm) -Ulcer Cleansing Soap and Water -Foul Odor after Cleansing No -Anesthetic Used 5% Lidocaine Gel WC - Nurse 3 - General Ulcer D/C NN Start: 07/09/22 11:09 Freq: Status: Active Protocol: Activity Type Activity Date Activity User E-sign Co-sign Detail Recorded Client Recorded Date Recorded By Document 07/09/22 11:39 MW [id number] 07/09/22 11:39 MW 07/09/22 11:39 Wound Care Center Nurse 3 -Ulcer Cleansing Rinsed/ Irrigated with Saline -Foul Odor after Cleansing No -Negative Pressure Wound Therapy N/A -Primary Dressing Applied Promogran Karly Matter -Promogran Karly Matter 1 Treatment Response Procedure Tolerated Well Pain Scale: 0-10 Numeric Is Patient Pain Free? Yes Teaching: Wound Center Dressing Your Wound -Person Taught Patient,Primary Caregiver -Teaching Method Discussion, Demonstration -Response to teaching Verbalize understanding WC - Visit Discharge Discharge Condition Stable Ambulatory Status Wheelchair Transportation Private Auto Accompanied by caregiver Medication Reconcilliation completed & No provided to patient/care provider Clinical Summary of Care Provided Yes Assessment/Plan Assessment/Plan (1) Pressure ulcer of back: CODE(S): L89.109 - Pressure ulcer of unspecified part of back, unspecified stage QUALIFIERS: Pressure injury stage: stage 1 Qualified Code(s): L89.101 - Pressure ulcer of unspecified part of back, stage 1 (2) Kyphoscoliosis: CODE(S): M41.9 - Scoliosis, unspecified (3) Debility: CODE(S): R53.81 - Other malaise (4) Failure to thrive: QUALIFIERS: Failure to thrive age range: in adult Qualified Code(s): R62.7 - Adult failure to thrive (5) Essential hypertension: CODE(S): I10 - Essential (primary) hypertension (6) Gastroesophageal reflux disease: CODE(S): K21.9 - Gastro-esophageal reflux disease without esophagitis (7) Hypothyroidism: CODE(S): E03.9 - Hypothyroidism, unspecified (8) Diabetes mellitus: CODE(S): E11.9 - Type 2 diabetes mellitus without complications (9) Vitamin D deficiency: CODE(S): E55.9 - Vitamin D deficiency, unspecified (10) Chronic diastolic congestive heart failure: CODE(S): I50.32 - Chronic diastolic (congestive) heart failure (11) Chronic renal disease, stage III: CODE(S): N18.30 - Chronic kidney disease, stage 3 unspecified (12) Heart block AV first degree: CODE(S): I44.0 - Atrioventricular block, first degree (13) Gout: CODE(S): M10.9 - Gout, unspecified (14) Osteoporosis: CODE(S): M81.0 - Age-related osteoporosis without current pathological fracture (15) Premature atrial contractions: CODE(S): I49.1 - Atrial premature depolarization (16) PVCs (premature ventricular contractions): CODE(S): I49.3 - Ventricular premature depolarization (17) History of appendectomy: CODE(S): Z90.49 - Acquired absence of other specified parts of digestive tract (18) History of back surgery: CODE(S): Z98.890 - Other specified postprocedural states (19) History of cholecystectomy: CODE(S): Z90.49 - Acquired absence of other specified parts of digestive tract (20) History of tonsillectomy: CODE(S): Z90.89 - Acquired absence of other organs PLAN: Plan This is an 87-year-old female with a stage III pressure ulceration on the right posterior flank. It appears as though she has recently undergone an ultrasound examination of the area at [facility]. We are to seek copies of this diagnostic study result, as well as other records which may be available. The patient has been encouraged to optimize her nutritional intake. It is highly suspected that the wound on the patient's right posterior flank is related to pressure phenomenon. The patient has a history of spinal jana insertion for treatment of kyphoscoliosis. Nonetheless, she remains extremely kyphotic, and sits in a chair or wheelchair throughout the day. She is nonambulatory, and she does not and will not sleep in a bed. It appears as though the patient is experiencing pressure phenomenon from her chair against the right posterior flank, the source of her presenting wound. At her last visit, she was advised to implement offloading measures, but her caregiver, at the bedside, indicates that she has refused to do so. We have once again discussed offloading measures in detail. The means by which this can be achieved have been thoroughly explained. The patient and her caregiver have been encouraged to seek some form of foam, pillow, or gel to create a barrier from the armrest or other portions of her chair or wheelchair which may be the source of pressure. There is suspicion that she is leaning to the right, perhaps against an armrest or other firm portion of her chair, resulting in undesired pressure to the area involved. According to her caregiver, the patient has refused to allow placement of a pillow as a source of offloading. We are to continue the use of Karly, Adaptic, and a foam dressing topically. We are to supplement that with an ABD pad, as a source of further cushioning. She has been advised to elevate her lower extremities to heart level, or higher, given that swelling and edema are noted in her lower extremities bilaterally. The patient is to return in 2 weeks for reassessment. Total time: 26 minutes
[2022-07-30 11:19] VITALS: BP 147/72; PULSE 85; RESP 18; TEMP 35.7; BMI 32.9
--- NOTE | 2022-07-30 13:36 | PCM.WC.HP ---
History of Present Illness Date of Service: 07/30/22 Chief Complaint: Right posterior flank wound History of Wound: This is an 87-year-old female with a pressure wound on the right posterior flank. It has been present for a lengthy period of time. The patient has recently [facility] under [facility] Due to concerns regarding wound infection, cultures were recently performed, which were positive for Enterococcus faecalis and Staphylococcus epidermidis. The patient has recently completed a 10-day course of linezolid 600 mg po twice daily. The patient has been evaluated with regard to her wound by her primary care physician, Dr. Henson, Dr. Suze Ferrara, marketing proposal specialist, and a surgeon at the [facility]. According to the patient's primary caregiver, who is not related, none of her [facility] providers or Dr. Ferrara have provided clarity as to the source of the patient's wound. The [facility] surgeon indicated it was a lipoma, and Dr. Ferrara suggested it to be scar tissue. Records from [facility] include a dermatopathology report from March 26, 2022, which reveals no evidence of malignancy. The patient is currently using Karly and Adaptic topically, applied on a daily basis. The patient is nonambulatory, spending a large portion of each day sitting in 1 of 2 chairs at her home. She also sleeps in a chair. Patient is profoundly kyphotic. Patient has recently undergone ultrasonography of the involved area, performed at [facility] Medical History Acute GI bleeding Chronic renal disease, stage 3, moderately decreased glomerular filtration rate (GFR) between 30-59 mL/min/1.73 square meter Chronic renal disease, stage III Colitis Colitis Congestive heart failure (CHF) Depressed Depression Diabetes mellitus Diastolic CHF, chronic Essential hypertension First degree AV block GERD (gastroesophageal reflux disease) GI bleed Gout Gout Gout Heart block AV first degree History of GI bleed Hypothyroidism Kidney disease Kyphoscoliosis Non-smoker Osteoporosis Osteoporosis Premature atrial contractions Premature atrial contractions Premature supraventricular beats Premature ventricular contraction Pressure ulcer of back PVCs (premature ventricular contractions) Type 2 diabetes mellitus Ventricular ectopy Home Medications allopurinol 100 mg tablet 100 mg PO DAILYCM gout 12/04/13 [History Last Taken 07/04/21] folic acid 1 mg tablet 1 mg PO BIDCM supplement 12/04/13 [History Last Taken 07/04/21] biotin 10,000 mcg capsule 5,000 mcg PO DAILY supplement 03/10/16 [History Last Taken 07/04/21] montelukast 10 mg tablet 10 mg PO QHS allergies 03/10/16 [History Last Taken 07/03/21] docusate sodium 100 mg capsule 100 mg PO BID stool softener 03/15/16 [History Last Taken 07/04/21] multivit with mutvuwcv-axrn-BY-lutein 8 mg iron-400 mcg-300 mcg tablet 1 ea PO DAILY vitamin 10/17/16 [History Last Taken 07/04/21] cholecalciferol (vitamin D3) 1,250 mcg (50,000 unit) capsule 50,000 unit PO QMONTH supplement 05/25/18 [History Last Taken 06/05/21] insulin aspart U-100 100 unit/mL (3 mL) subcutaneous pen 4 unit subcut 0700,1200,1700 insulin 05/25/18 [History Last Taken 07/04/21] insulin glargine 100 unit/mL (3 mL) subcutaneous pen 6 unit subcut QHS insulin 05/26/19 [History Last Taken 07/04/21] levothyroxine 112 mcg tablet 100 mcg PO DAILY thyroid 12/25/19 [History Last Taken 07/04/21] cimetidine 400 mg tablet 800 mg PO DAILY PRN upset stomach 07/04/21 [History Last Taken Unknown] fluticasone propionate 50 mcg/actuation nasal spray,suspension 2 spray NASAL DAILY allergies 07/06/21 [History Last Taken Unknown] furosemide 40 mg tablet 40 mg PO DAILY water pill 07/06/21 [History Last Taken Unknown] melatonin 3 mg tablet 3 mg PO QHS PRN PRN Insomnia #0 tabs 07/06/21 [Rx Last Taken Unknown] nystatin 100,000 unit/gram topical powder (Nyamyc) 1 applic topical BID skin protectant 07/06/21 [History Last Taken Unknown] acetaminophen 500 mg tablet 1,000 mg PO Q6H PRN PRN Pain Score 1-5 #0 tabs 07/19/21 [Rx Last Taken Unknown] cholecalciferol (vitamin D3) 25 mcg (1,000 unit) tablet 25 mcg PO 0800 #0 tabs 07/19/21 [Rx Last Taken Unknown] losartan 25 mg tablet 25 mg PO DAILY #0 tabs 07/19/21 [Rx Last Taken Unknown] ondansetron 4 mg disintegrating tablet 4 mg PO Q8H PRN nausea and vomiting 30 days #90 tabs 07/19/21 [Rx Last Taken Unknown] oxycodone 5 mg tablet 10 mg PO Q8H PRN PRN PAIN 1-10 3 days #18 tabs 07/19/21 [Rx Last Taken Unknown] pantoprazole 40 mg tablet,delayed release 40 mg PO DAILY 30 days #30 tabs 07/19/21 [Rx Last Taken Unknown] amlodipine 10 mg tablet (Norvasc) 5 mg PO DAILY 04/25/22 [History Last Taken Unknown] aspirin 81 mg tablet,delayed release (Adult Low Dose Aspirin) 81 mg PO DAILY 04/25/22 [History Last Taken Unknown] meclizine 12.5 mg tablet 12.5 mg PO BID PRN Nausea 04/25/22 [History Last Taken Unknown] polysaccharide iron complex 150 mg iron capsule (iFerex 150) 150 mg PO .qod 04/25/22 [History Last Taken Unknown] Allergy/AdvReac Type Severity Reaction Status Date / Time shellfish derived Allergy Severe Anaphylaxis Verified 04/25/22 11:11 hydrochlorothiazide Allergy Unknown Verified 04/25/22 11:11 [From Prinzide] Iodinated Contrast Media Allergy Anaphylaxis Verified 04/25/22 11:11 [Iodinated Contrast Media - IV Dye] lisinopril [From Prinzide] Allergy Unknown Verified 04/25/22 11:11 neomycin [Neomycin] Allergy Unknown Verified 04/25/22 11:11 guaifenesin [From Mucinex] AdvReac Severe PT UNSURE Verified 04/25/22 11:11 OF REACTION Family History Father CVA (cerebral vascular accident) Myocardial infarction Heart disease Mother Cancer Brother Pacemaker Surgical History History of appendectomy History of appendectomy History of back surgery History of back surgery History of cholecystectomy History of cholecystectomy History of tonsillectomy History of tonsillectomy Social History household members: none Smoking Status: Never smoker alcohol intake: never caffeine: Yes Type: coffee Number of servings: 4 Vital Signs Vital Signs Vital Signs: 07/30/22 11:19 Temperature 96.2 F L Temperature Source Temporal Pulse Rate 85 Respiratory Rate 18 Blood Pressure 147/72 H Blood Pressure Mean 97 Blood Pressure Source Monitor Blood Pressure Position Semi-Fowlers Blood Pressure Location Right Arm Weight Weight: 180 lb Body Mass Index (BMI) 32.9 Physical Exam Const alert, oriented x3, no apparent distress and well nourished Constitutional Narrative: The patient appears frail and elderly. A profoundly kyphotic posture is noted. General Appearance: cooperative, comfortable, well kempt and well developed Orientation / Consciousness: awake, oriented to person, oriented to place and oriented to time HEENT normocephalic and head/scalp atraumatic Head and Scalp: normal to inspection, normocephalic, atraumatic and other Other Details: Alopecia is noted. Face and Sinus: normal facial exam External Ear: external ears normal Eyes PERRL and EOMs intact bilaterally General Eye: normal appearance of both eyes Resp normal respiratory effort, normal air movement, no retractions and no use of accessory muscles Effort and Inspection: able to speak in complete sentences Extremity no calf tenderness Extremity Narrative: Bilateral lower extremity swelling and edema are noted. General Extremity: Negative for clubbing or cyanosis Skin Wound Narrative: A superficial wound is noted on the patient's right posterior flank. There is mild periwound erythema, which looks to be increased since the patient's last visit. There is a moderate amount of bioburden. Dimensions are documented elsewhere. There has been little or no improvement in recent weeks. Hair: general thinning Neuro oriented x3, CN's II-XII intact bilaterally, moves all extremities and no focal motor deficits Sensorium / Orientation: awake, alert, oriented to person, oriented to place and oriented to time Speech: speech normal Psych Appearance: grossly normal and appropriate Attitude: calm Activity / Motor Behavior: appropriate eye contact Speech: normal speech Mood & Affect: euthymic mood Thought Process: normal thought process Thought Content: normal thought content Attention / Concentration: attention grossly intact Debridement Note Debridement Note Wound debrided: Right posterior flank Laterality: Right Wound Grade/Stage: Stage 3 pressure ulcer Type of Debridement: Excisional debridement Anesthesia Used: 5% Lidocaine Gel Depth: Down to and including healthy tissue and in the subcutaneous layer Percentage of wound debrided: 100 Instrument Used: 5mm curette Tissue Removed: Bioburden Severity: Fat Layer Exposed Amount of bleeding with debridement: Mild Bleeding Controlled with: Compression and gauze Patient tolerated procedure: Patient tolerated procedure well Debridement Free Text: Because of the increasing periwound erythema, swab cultures have been obtained today for both aerobic and anaerobic bacterial growth. Culture results will be awaited. Additionally, a considerable amount of bleeding was encountered today, which failed to respond to manual compression alone. Therefore, silver nitrate was used to minimize the bleeding from the debrided site, and SurgiFoam was applied topically. Post-Debridement Measurements and Additional Note: Post-Debridement Measurements/Treatment - Nurse 1 - General Ulcer Assessment Start: 07/09/22 11:09 Freq: Status: Active Protocol: AMY Activity Type Activity Date Activity User E-sign Co-sign Detail Recorded Client Recorded Date Recorded By Document 07/09/22 11:09 DL [id number] 07/09/22 11:13 DL Document 07/30/22 11:19 JF [id number] 07/30/22 11:21 JF 07/09/22 07/30/22 11:09 11:19 - Today's Visit Information Type of service Follow-up Visit Follow-up Visit (Physician/GREEN JOBS TRAINER (Physician/GREEN JOBS TRAINER ) ) Arrival Mode Wheelchair Cane,Walker Transfer Assistance None Patient Identification Verified (Name & Yes Yes ) Patient Requires Transmission-Based No No Precautions Height and Weight Body Mass Index (BMI) 32.9 32.9 BMI Classification Obese Obese Vital Signs Temperature (97.8 F-99.1 F) 97.5 F L 96.2 F L Temperature Source Temporal Temporal Pulse Rate (60-100) 70 85 Pulse Location Monitor Monitor Respiratory Rate (12-18) 20 H 18 Respiratory rate source Observation Observation Blood Pressure (90/60-120/80) 141/38 H 147/72 H Blood Pressure Mean 72 97 Source Monitor Monitor Position Semi-Fowlers Blood Pressure Location Right Arm History Since Last Visit- (Skip if this is Patient's initial visit) Have you changed medications since your No No last visit? Any new allergies or adverse reactions No No Had a fall/change in ADL's that may No No increase risk of falls Signs or symptoms of abuse and/or No No neglect since last visit Have you been in the hospital since your No No last visit? Has dressing in place as prescribed Yes Yes Has compression in place as prescribed N/A Has offloadiing in place as prescribed Yes Yes Experienced any changes in pain level or No No management Left Footwear Regular Shoe Right Footwear Regular Shoe Pain Scale: 0-10 Numeric Is Patient Pain Free? Yes Yes DUYEN - Nurse 1 - General Ulcer Measurement Start: 07/09/22 11:09 Freq: Status: Active Protocol: Activity Type Activity Date Activity User E-sign Co-sign Detail Recorded Client Recorded Date Recorded By Document 07/09/22 11:09 DL [id number] 07/09/22 11:13 DL Document 07/30/22 11:19 JF [id number] 07/30/22 11:21 JF 07/09/22 07/30/22 11:09 11:19 Wound Center Nurse 1 #1 right mid-back -Combined with other wound No -Current Size (cm) - Length 1.5 0.9 -Current Size (cm) - Width 0.7 0.8 -Current Size (cm) - Depth 0.1 0.1 -Total Square Cm 1.05 0.72 -Photo Taken Yes Yes -Tunneling No -Undermining/Tunneling No -Circular Undermining No -Exudate Amt Small None Present -Exudate Type Serosanguineous -Wound Margin Distinct, Indistinct, Non Outline -Visible Attached -Granulation Amt Small (1-33%) None Present (0 %) -Granulation Quality [place] -Slough/Fibrin Yes -Necrosis Amt Large (67-100%) -Necrotic Tissue Type Adherent Slough Necrosis of Bone -Structure Exposed N/A N/A -Texture (Ericka-wound Skin Appearance) Scarring,Rash Assessed -Moisture (Ericka-wound Skin Appearance) No Abnormality Assessed,Dry/ Scaly -Color (Ericka-wound Skin Appearance) No Abnormality Assessed, Erythema -Temperature (Ericka-wound Skin No Abnormality No Abnormality Appearance) (Pt Warm) (Pt Warm) -Ulcer Cleansing Soap and Water Rinsed/ Irrigated with Saline -Foul Odor after Cleansing No No -Anesthetic Used 5% Lidocaine 5% Lidocaine Gel Gel Lower Limb Edema Present NA WC - Nurse 2 - General Ulcer CM Notes Start: 07/09/22 11:09 Freq: Status: Active Protocol: Activity Type Activity Date Activity User E-sign Co-sign Detail Recorded Client Recorded Date Recorded By Document 07/09/22 12:19 PL [id number] 07/09/22 12:20 PL Document 07/30/22 12:18 PL [id number] 07/30/22 12:20 PL 07/09/22 07/30/22 12:19 12:18 Wound Center Nurse 2 #1 right mid-back -Time 11: 11:33 -Correct Patient Yes Yes -Correct Side, Site, Position Yes Yes -Correct Procedure Yes Yes -Procedure Performed Yes Yes -Type of Procedure Debridement Debridement -Clinical Debridement Subcutaneous Subcutaneous -Tissue Removed Subcutaneous Subcutaneous -Post Debridement (cm) - Length 1.5 0.9 -Post Debridement (cm) - Width 0.7 0.8 -Post Debridement (cm) - Depth 1 0.1 -Total Square (Post) (cm) 1.05 0.72 -Area of Debridement (cm) - Length 1.5 0.9 -Area of Debridement (cm) - Width 0.7 0.8 -Total Square (Area) (cm) 1.05 0.72 -Tunneling No No -Undermining/Tunneling No No -Circular Undermining No No -Wound/Ulcer Outcome Not Healed Not Healed -Ulcer Cleansing Rinsed/ Rinsed/ Irrigated with Irrigated with Saline Saline -Foul Odor after Cleansing No No -Bioengineered Tissue No No -Bleeding Controlled with Pressure Pressure,Silver Nitrate, SURGIFOAM, Chemical Cauterization ( $) -Treatment Response Procedure Tolerated Well -Debridement - Subq, 1st 20sq cm Yes Yes Pain Scale: 0-10 Numeric Is Patient Pain Free? Yes Yes WC - Nurse 3 - General Ulcer D/C NN Start: 07/09/22 11:09 Freq: Status: Active Protocol: Activity Type Activity Date Activity User E-sign Co-sign Detail Recorded Client Recorded Date Recorded By Document 07/09/22 11:39 MW [id number] 07/09/22 11:39 MW Document 07/30/22 12:01 JF [id number] 07/30/22 12:01 JF Edit Result 07/30/22 12:01 JF (1) [id number] 07/30/22 12:20 PL (1) #1 right mid-back - Primary Dressing Applied => Surgifoam - Surgifoam 12-7mm (3/4 x 2 3/8) => 1 07/09/22 07/30/22 11:39 12:01 Wound Care Center Nurse 3 #1 right mid-back -Ulcer Cleansing Rinsed/ Rinsed/ Irrigated with Irrigated with Saline Saline -Foul Odor after Cleansing No No -Negative Pressure Wound Therapy N/A -Primary Dressing Applied Promogran Surgifoam Karly Matter -Primary Dressing Covered/Secured with Dry Gauze, Secured with Tape -Promogran Karly Matter 1 -Surgifoam 12-7mm (3/4 x 2 3/8) 1 Treatment Response Procedure Tolerated Well Pain Scale: 0-10 Numeric Is Patient Pain Free? Yes Yes Teaching: Wound Center Dressing Your Wound -Person Taught Patient,Primary Caregiver -Teaching Method Discussion, Demonstration -Response to teaching Verbalize understanding WC - Visit Discharge Discharge Condition Stable Stable Ambulatory Status Wheelchair Ambulatory, Walker Transportation Private Auto Private Auto Accompanied by caregiver cargiver Medication Reconcilliation completed & No Yes provided to patient/care provider Clinical Summary of Care Provided Yes Assessment/Plan Assessment/Plan (1) Pressure ulcer of back: CODE(S): L89.109 - Pressure ulcer of unspecified part of back, unspecified stage QUALIFIERS: Pressure injury stage: stage 1 Qualified Code(s): L89.101 - Pressure ulcer of unspecified part of back, stage 1 (2) Kyphoscoliosis: CODE(S): M41.9 - Scoliosis, unspecified (3) Debility: CODE(S): R53.81 - Other malaise (4) Failure to thrive: QUALIFIERS: Failure to thrive age range: in adult Qualified Code(s): R62.7 - Adult failure to thrive (5) Essential hypertension: CODE(S): I10 - Essential (primary) hypertension (6) Gastroesophageal reflux disease: CODE(S): K21.9 - Gastro-esophageal reflux disease without esophagitis (7) Hypothyroidism: CODE(S): E03.9 - Hypothyroidism, unspecified (8) Diabetes mellitus: CODE(S): E11.9 - Type 2 diabetes mellitus without complications (9) Vitamin D deficiency: CODE(S): E55.9 - Vitamin D deficiency, unspecified (10) Chronic diastolic congestive heart failure: CODE(S): I50.32 - Chronic diastolic (congestive) heart failure (11) Chronic renal disease, stage III: CODE(S): N18.30 - Chronic kidney disease, stage 3 unspecified (12) Heart block AV first degree: CODE(S): I44.0 - Atrioventricular block, first degree (13) Gout: CODE(S): M10.9 - Gout, unspecified (14) Osteoporosis: CODE(S): M81.0 - Age-related osteoporosis without current pathological fracture (15) Premature atrial contractions: CODE(S): I49.1 - Atrial premature depolarization (16) PVCs (premature ventricular contractions): CODE(S): I49.3 - Ventricular premature depolarization (17) History of appendectomy: CODE(S): Z90.49 - Acquired absence of other specified parts of digestive tract (18) History of back surgery: CODE(S): Z98.890 - Other specified postprocedural states (19) History of cholecystectomy: CODE(S): Z90.49 - Acquired absence of other specified parts of digestive tract (20) History of tonsillectomy: CODE(S): Z90.89 - Acquired absence of other organs PLAN: Plan This is an 87-year-old female with a stage III pressure ulceration on the right posterior flank. It appears as though she has recently undergone an ultrasound examination of the area at [facility]. We are to seek copies of this diagnostic study result, as well as other records which may be available. The patient has been encouraged to optimize her nutritional intake. It is highly suspected that the wound on the patient's right posterior flank is related to pressure phenomenon. The patient has a history of spinal jana insertion for treatment of kyphoscoliosis. Nonetheless, she remains extremely kyphotic, and sits in a chair or wheelchair throughout the day. She is nonambulatory, and she does not and will not sleep in a bed. It appears as though the patient is experiencing pressure phenomenon from her chair against the right posterior flank, the source of her presenting wound. At previous visits, she was advised to implement offloading measures, but her caregiver, at the bedside, indicates that she has refused to do so. We have once again discussed offloading measures in detail. The means by which this can be achieved have been thoroughly explained. The patient and her caregiver have been encouraged to seek some form of foam, pillow, or gel to create a barrier from the armrest or other portions of her chair or wheelchair which may be the source of pressure. There is suspicion that she is leaning to the right, perhaps against an armrest or other firm portion of her chair, resulting in undesired pressure to the area involved. According to her caregiver, the patient has refused to allow placement of a pillow as a source of offloading. We are to continue the use of Karly, Adaptic, and a foam dressing topically. We are to supplement that with an ABD pad, as a source of further cushioning. She has been advised to elevate her lower extremities to heart level, or higher, given that swelling and edema are noted in her lower extremities bilaterally. She also wears compression stockings on a daily basis. We will await the results of swab cultures, obtained today. The patient is to return in 1 week for reassessment. Total time: 28 minutes
== END 2022-08-04 23:59 | disposition home or self-care (01) ==
LOC: WC 11:15
PROVIDERS: PCP Family Medicine; Visit Provider Surgery
DX: L89.131 Pressure ulcer of right lower back, stage 1 (principal); I13.0 Hypertensive heart and chronic kidney disease with heart failure and stage 1 through stage 4 chronic kidney disease, or unspecified chronic kidney disease; I50.32 Chronic diastolic (congestive) heart failure; E11.22 Type 2 diabetes mellitus with diabetic chronic kidney disease; Z79.4 Long term (current) use of insulin; N18.30 Chronic kidney disease, stage 3 unspecified; M10.9 Gout, unspecified; K21.9 Gastro-esophageal reflux disease without esophagitis; R62.7 Adult failure to thrive; E55.9 Vitamin D deficiency, unspecified; M41.9 Scoliosis, unspecified; E03.9 Hypothyroidism, unspecified; I49.3 Ventricular premature depolarization; I49.1 Atrial premature depolarization; M81.0 Age-related osteoporosis without current pathological fracture; Z79.82 Long term (current) use of aspirin; Z79.890 Hormone replacement therapy; Z79.899 Other long term (current) drug therapy
CPT/HCPCS: 11042; 17250; 87070; 87075; 87077; 87186; 87205

== ENCOUNTER 2022-08-27 11:15 | Outpatient (RCR) | payer MEDICARE, SELFPAY ==
[2022-08-05 00:19] VITALS: BP 147/72; PULSE 85; RESP 18; TEMP 35.7; BMI 32.9
[2022-08-13 11:12] VITALS: TEMP 36.1; BMI 32.9
--- NOTE | 2022-08-13 12:41 | HP.PCM_ITS ---
History of Present Illness Date of Service: 08/13/22 Chief Complaint: Right posterior flank wound History of Wound: This is an 87-year-old female with a pressure wound on the right posterior flank. It has been present for a lengthy period of time. The patient has recently been under the care of [facility] Due to concerns regarding wound infection, cultures were recently performed, which were positive for Enterococcus faecalis and Staphylococcus epidermidis. The patient has recently completed a 10-day course of linezolid 600 mg po twice daily. The patient has been evaluated with regard to her wound by her primary care physician, Dr. Henson, Dr. Suez Ferrara, director of quality, and a surgeon at the [facility]. According to the patient's primary caregiver, who is not related, none of her [facility] providers or Dr. Ferrara have provided clarity as to the source of the patient's wound. The [facility] surgeon indicated it was a lipoma, and Dr. Ferrara suggested it to be scar tissue. Records from [facility] include a dermat opathology report from March 26, 2022, which reveals no evidence of malignancy. The patient is currently using Karly and Adaptic topically, applied on a daily basis. The patient is nonambulatory, spending a large portion of each day sitting in 1 of 2 chairs at her home. She also sleeps in a chair. Patient is profoundly kyphotic. Patient has recently undergone ultrasonography of the involved area, performed at [facility] Medical History Acute GI bleeding Chronic renal disease, stage 3, moderately decreased glomerular filtration rate (GFR) between 30-59 mL/min/1.73 square meter Chronic renal disease, stage III Colitis Colitis Congestive heart failure (CHF) Depressed Depression Diabetes mellitus Diastolic CHF, chronic Essential hypertension First degree AV block GERD (gastroesophageal reflux disease) GI bleed Gout Gout Gout Heart block AV first degree History of GI bleed Hypothyroidism Kidney disease Kyphoscoliosis Non-smoker Osteoporosis Osteoporosis Premature atrial contractions Premature atrial contractions Premature supraventricular beats Premature ventricular contraction Pressure ulcer of back PVCs (premature ventricular contractions) Type 2 diabetes mellitus Ventricular ectopy Home Medications allopurinol 100 mg tablet 100 mg PO DAILYCM gout 12/04/13 [History Last Taken 07/04/21] folic acid 1 mg tablet 1 mg PO BIDCM supplement 12/04/13 [History Last Taken 07/04/21] biotin 10,000 mcg capsule 5,000 mcg PO DAILY supplement 03/10/16 [History Last Taken 07/04/21] montelukast 10 mg tablet 10 mg PO QHS allergies 03/10/16 [History Last Taken 07/03/21] docusate sodium 100 mg capsule 100 mg PO BID stool softener 03/15/16 [History Last Taken 07/04/21] multivit with gkgvfgmr-bnhc-YV-lutein 8 mg iron-400 mcg-300 mcg tablet 1 ea PO DAILY vitamin 10/17/16 [History Last Taken 07/04/21] cholecalciferol (vitamin D3) 1,250 mcg (50,000 unit) capsule 50,000 unit PO QMONTH supplement 05/25/18 [History Last Taken 06/05/21] insulin aspart U-100 100 unit/mL (3 mL) subcutaneous pen 4 unit subcut 0700,1200 ,1700 insulin 05/25/18 [History Last Taken 07/04/21] insulin glargine 100 unit/mL (3 mL) subcutaneous pen 6 unit subcut QHS insulin 05/26/19 [History Last Taken 07/04/21] levothyroxine 112 mcg tablet 100 mcg PO DAILY thyroid 12/25/19 [History Last Taken 07/04/21] cimetidine 400 mg tablet 800 mg PO DAILY PRN upset stomach 07/04/21 [History Last Taken Unknown] fluticasone propionate 50 mcg/actuation nasal spray,suspension 2 spray NASAL DAILY allergies 07/06/21 [History Last Taken Unknown] furosemide 40 mg tablet 40 mg PO DAILY water pill 07/06/21 [History Last Taken Unknown] melatonin 3 mg tablet 3 mg PO QHS PRN PRN Insomnia #0 tabs 07/06/21 [Rx Last Taken Unknown] nystatin 100,000 unit/gram topical powder (Nyamyc) 1 applic topical BID skin protectant 07/06/21 [History Last Taken Unknown] acetaminophen 500 mg tablet 1,000 mg PO Q6H PRN PRN Pain Score 1-5 #0 tabs 07/19/21 [Rx Last Taken Unknown] cholecalciferol (vitamin D3) 25 mcg (1,000 unit) tablet 25 mcg PO 0800 #0 tabs 07/19/21 [Rx Last Taken Unknown] losartan 25 mg tablet 25 mg PO DAILY #0 tabs 07/19/21 [Rx Last Taken Unknown] ondansetron 4 mg disintegrating tablet 4 mg PO Q8H PRN nausea and vomiting 30 days #90 tabs 07/19/21 [Rx Last Taken Unknown] oxycodone 5 mg tablet 10 mg PO Q8H PRN PRN PAIN 1-10 3 days #18 tabs 07/19/21 [Rx Last Taken Unknown] pantoprazole 40 mg tablet,delayed release 40 mg PO DAILY 30 days #30 tabs [Rx Last Taken Unknown] amlodipine 10 mg tablet (Norvasc) 5 mg PO DAILY 04/25/22 [History Last Taken Unknown] aspirin 81 mg tablet,delayed release (Adult Low Dose Aspirin) 81 mg PO DAILY 04/25/22 [History Last Taken Unknown] meclizine 12.5 mg tablet 12.5 mg PO BID PRN Nausea 04/25/22 [History Last Taken Unknown] polysaccharide iron complex 150 mg iron capsule (iFerex 150) 150 mg PO .qod 04/07 12/28 [History Last Taken Unknown] Allergy/AdvReac Type Severity Reaction Status Date / Time shellfish derived Allergy Severe Anaphylaxis Verified 04/25/22 11:11 hydrochlorothiazide Allergy Unknown Verified 04/25/22 11:11 [From Prinzide] Iodinated Contrast Media Allergy Anaphylaxis Verified 04/25/22 11:11 [Iodinated Contrast Media - IV Dye] lisinopril [From Prinzide] Allergy Unknown Verified 04/25/22 11:11 neomycin [Neomycin] Allergy Unknown Verified 04/25/22 11:11 guaifenesin [From Mucinex] AdvReac Severe PT UNSURE Verified 04/25/22 11:11 OF REACTION Family History Father CVA (cerebral vascular accident) Myocardial infarction Heart disease Mother Cancer Brother Pacemaker Surgical History History of appendectomy History of appendectomy History of back surgery History of back surgery History of cholecystectomy History of cholecystectomy History of tonsillectomy History of tonsillectomy Social History household members: none Smoking Status: Never smoker alcohol intake: never caffeine: Yes Type: coffee Number of servings: 4 Vital Signs Vital Signs Vital Signs: 08/13/22 11:12 Temperature 96.9 F L Temperature Source Temporal Weight Weight: 180 lb Body Mass Index (BMI) 32.9 Physical Exam Const alert, oriented x3, no apparent distress and well nourished Constitutional Narrative: The patient appears frail and elderly. A profoundly kyphotic posture is noted. General Appearance: cooperative, comfortable, well kempt and well developed Orientation / Consciousness: awake, oriented to person, oriented to place and oriented to time HEENT normocephalic and head/scalp atraumatic Head and Scalp: normal to inspection, normocephalic, atraumatic and other Other Details: Alopecia is noted. Face and Sinus: normal facial exam External Ear: external ears normal Eyes PERRL and EOMs intact bilaterally General Eye: normal appearance of both eyes Resp normal respiratory effort, normal air movement, no retractions and no use of accessory muscles Effort and Inspection: able to speak in complete sentences Extremity no calf tenderness Extremity Narrative: Bilateral lower extremity swelling and edema are noted. General Extremity: Negative for clubbing or cyanosis Skin Wound Narrative: A superficial wound is noted on the patient's right posterior flank. There is mild periwound erythema. There is a large amount of bioburden. Bleeding at the site following debridement last week required the use of silver nitrate topically, which has resulted in the presence of an increased amount of devitalized tissue at the site of the wound. Dimensions are documented elsewhere. Hair: general thinning Neuro oriented x3, CN's II-XII intact bilaterally, moves all extremities and no focal motor deficits Sensorium / Orientation: awake, alert, oriented to person, oriented to place and oriented to time Speech: speech normal Psych Appearance: grossly normal and appropriate Attitude: calm Activity / Motor Behavior: appropriate eye contact Speech: normal speech Mood & Affect: euthymic mood Thought Process: normal thought process Thought Content: normal thought content Attention / Concentration: attention grossly intact Debridement Note Debridement Note Wound debrided: Right posterior flank Laterality: Right Wound Grade/Stage: Stage 3 pressure ulcer Type of Debridement: Excisional debridement Anesthesia Used: 5% Lidocaine Gel Depth: Down to and including healthy tissue and in the subcutaneous layer Percentage of wound debrided: 100 Instrument Used: 5mm curette Tissue Removed: Bioburden Severity: Fat Layer Exposed Amount of bleeding with debridement: Mild Bleeding Controlled with: Compression and gauze Patient tolerated procedure: Patient tolerated procedure well Debridement Free Text: A large amount of devitalized tissue is noted at the wound site, as bleeding had been encountered a week prior following excisional debridement. Manual pressure was insufficient in controlling the bleeding, and silver nitrate was required topically to achieve hemostasis. This has resulted in the presence of an enhanced amount of devitalized tissue at the wound site. Post-Debridement Measurements and Additional Note: Post-Debridement Measurements/Treatment - Nurse 1 - General Ulcer Assessment Start: 08/13/22 11:12 Freq: Status: Active Protocol: AMY Activity Type Activity Date Activity User E-sign Co-sign Detail Recorded Client Recorded Date Recorded By Document 08/13/22 11:12 MW [id number] 08/13/22 11:20 MW 08/13/22 11:12 WC - Today's Visit Information Type of service Follow-up Visit (Physician/SHIPPING PROCESSOR ) Arrival Mode Wheelchair Transfer Assistance None Accompanied by caregiver Patient Identification Verified (Name & Yes ) Patient Requires Transmission-Based No Precautions Safety Precautions Fall Prevention Height and Weight Body Mass Index (BMI) 32.9 BMI Classification Obese Vital Signs Temperature (97.8 F-99.1 F) 96.9 F L Temperature Source Temporal History Since Last Visit- (Skip if this is Patient's initial visit) Have you changed medications since your No last visit? Had a fall/change in ADL's that may No increase risk of falls Have you been in the hospital since your Yes last visit? Has dressing in place as prescribed Yes Has compression in place as prescribed N/A Has offloadiing in place as prescribed N/A Experienced any changes in pain level or No management Left Footwear Regular Shoe Right Footwear [place]/Foam Pain Scale: 0-10 Numeric Is Patient Pain Free? Yes - Nurse 1 - General Ulcer Measurement Start: 08/13/22 11:12 Freq: Status: Active Protocol: Activity Type Activity Date Activity User E-sign Co-sign Detail Recorded Client Recorded Date Recorded By Document 08/13/22 11:12 MW [id number] 08/13/22 11:20 MW 08/13/22 11:12 Wound Center Nurse 1 #1 right mid-back -Combined with other wound No -Current Size (cm) - Length 1.0 -Current Size (cm) - Width 0.8 -Current Size (cm) - Depth 0.1 -Total Square Cm 0.80 -Date of Last Picture (Recall this 08/13/22 field) -Photo Taken Yes -Epithelialization None Present -Tunneling No -Undermining/Tunneling No -Circular Undermining No -Exudate Amt Small -Exudate Type Serosanguineous -Wound Margin Flat & Intact -Granulation Amt None Present (0 %) -Granulation Quality N/A -Slough/Fibrin Yes -Necrosis Amt Large (67-100%) -Necrotic Tissue Type Adherent Slough -Structure Exposed N/A -Texture (Ericka-wound Skin Appearance) Assessed, Scarring -Moisture (Ericka-wound Skin Appearance) Assessed,Dry/ Scaly -Color (Ericka-wound Skin Appearance) Assessed, Erythema -Temperature (Ericka-wound Skin No Abnormality Appearance) (Pt Warm) -Tenderness on Palpation (Ericka-wound Yes Skin Appearance) -Ulcer Cleansing Rinsed/ Irrigated with Saline -Foul Odor after Cleansing No -Anesthetic Used 5% Lidocaine Gel Lower Limb Edema Present No WC - Nurse 3 - General Ulcer D/C NN Start: 08/13/22 11:12 Freq: Status: Active Protocol: Activity Type Activity Date Activity User E-sign Co-sign Detail Recorded Client Recorded Date Recorded By Document 08/13/22 11:38 MW [id number] 08/13/22 11:39 MW 08/13/22 11:38 Wound Care Center Nurse 3 #1 right mid-back -Ulcer Cleansing Rinsed/ Irrigated with Saline -Foul Odor after Cleansing No -Negative Pressure Wound Therapy N/A -Primary Dressing Applied Mepilex Border -Other Dressing c.hydrogel -Mepilex Border 1 Treatment Response Procedure Tolerated Well Pain Scale: 0-10 Numeric Is Patient Pain Free? Yes Teaching: Wound Center Dressing Your Wound -Person Taught Patient,Primary Caregiver -Teaching Method Discussion, Demonstration -Response to teaching Verbalize understanding WC - Visit Discharge Discharge Condition Stable Ambulatory Status Wheelchair Transportation Private Auto Accompanied by caregiver Medication Reconcilliation completed & No provided to patient/care provider Clinical Summary of Care Provided Yes Assessment/Plan Assessment/Plan (1) Pressure ulcer of back: CODE(S): L89.109 - Pressure ulcer of unspecified part of back, unspecified stage QUALIFIERS: Pressure injury stage: stage 1 Qualified Code(s): L89.101 - Pressure ulcer of unspecified part of back, stage 1 (2) Kyphoscoliosis: CODE(S): M41.9 - Scoliosis, unspecified (3) Debility: CODE(S): R53.81 - Other malaise (4) Failure to thrive: QUALIFIERS: Failure to thrive age range: in adult Qualified Code(s): R62.7 - Adult failure to thrive (5) Essential hypertension: CODE(S): I10 - Essential (primary) hypertension (6) Gastroesophageal reflux disease: CODE(S): K21.9 - Gastro-esophageal reflux disease without esophagitis (7) Hypothyroidism: CODE(S): E03.9 - Hypothyroidism, unspecified (8) Diabetes mellitus: CODE(S): E11.9 - Type 2 diabetes mellitus without complications (9) Vitamin D deficiency: CODE(S): E55.9 - Vitamin D deficiency, unspecified (10) Chronic diastolic congestive heart failure: CODE(S): I50.32 - Chronic diastolic (congestive) heart failure (11) Chronic renal disease, stage III: CODE(S): N18.30 - Chronic kidney disease, stage 3 unspecified (12) Heart block AV first degree: CODE(S): I44.0 - Atrioventricular block, first degree (13) Gout: CODE(S): M10.9 - Gout, unspecified (14) Osteoporosis: CODE(S): M81.0 - Age-related osteoporosis without current pathological fracture (15) Premature atrial contractions: CODE(S): I49.1 - Atrial premature depolarization (16) PVCs (premature ventricular contractions): CODE(S): I49.3 - Ventricular premature depolarization (17) History of appendectomy: CODE(S): Z90.49 - Acquired absence of other specified parts of digestive tract (18) History of back surgery: CODE(S): Z98.890 - Other specified postprocedural states (19) History of cholecystectomy: CODE(S): Z90.49 - Acquired absence of other specified parts of digestive tract (20) History of tonsillectomy: CODE(S): Z90.89 - Acquired absence of other organs PLAN: Plan This is an 87-year-old female with a stage III pressure ulceration on the right posterior flank. It appears as though she has recently undergone an ultrasound examination of the area at [facility]. We are to seek photocopying machine operator ies of this diagnostic study result, as well as other records which may be available. The patient has been encouraged to optimize her nutritional intake. It is highly suspected that the wound on the patient's right posterior flank is related to pressure phenomenon. The patient has a history of spinal jana insertion for treatment of kyphoscoliosis. Nonetheless, she remains extremely kyphotic, and sits in a chair or wheelchair throughout the day. She is nonambulatory, and she does not and will not sleep in a bed. It appears as though the patient is experiencing pressure phenomenon from her chair against the right posterior flank, the source of her presenting wound. At previous visits, she was advised to implement offloading measures, but her caregiver, at the bedside, indicates that she has been reluctant to do so. Only recently has she consented to the use of a pillow/cushion for offloading measures. We have once again discussed offloading measures in detail. The means by which this can be achieved have been thoroughly explained. There is suspicion that she is leaning to the right, perhaps against an armrest or other firm portion of her chair, resulting in undesired pressure to the area involved. Given the enhanced amount of necrotic and nonviable tissue at the wound site, thought to be secondary to the use of silver nitrate topically for hemostasis a week ago, we are to transition to the use of collagenase Santyl, which is to be prescribed, and will be applied topically on a daily basis. The patient and her daughter have been instructed in the appropriate means of application. She has been advised to elevate her lower extremities to heart level, or higher, given that swelling and edema are noted in her lower extremities bilaterally. She also wears compression stockings on a daily basis. The patient's recent culture results have been noted, positive for Staphylococcus epidermidis, and the patient has been prescribed Levaquin 500 mg p.o. daily for 7 days. The patient is to return in 2 weeks for reassessment. Total time: 26 minutes
[2022-08-27 11:28] VITALS: BP 133/49; PULSE 81; RESP 16; TEMP 36.1; BMI 32.9
--- NOTE | 2022-08-27 14:04 | HP.PCM_ITS ---
History of Present Illness Date of Service: 08/27/22 Chief Complaint: Right posterior flank wound History of Wound: This is an 87-year-old female with a pressure wound on the right posterior flank. It has been present for a lengthy period of time. The patient has recently been under the care of [facility] Due to concerns regarding wound infection, cultures were recently performed, which were positive for Enterococcus faecalis and Staphylococcus epidermidis. The patient has recently completed a 10-day course of linezolid 600 mg po twice daily. The patient has been evaluated with regard to her wound by her primary care physician, Dr. Henson, Dr. Suze Ferrara, instructional technology facilitator, and a surgeon at the [facility]. According to the patient's primary caregiver, who is not related, none of her [facility] providers or Dr. Ferrara have provided clarity as to the source of the patient's wound. The [facility] surgeon indicated it was a lipoma, and Dr. Ferrara suggested it to be scar tissue. Records from [facility] include a dermat opathology report from March 26, 2022, which revealed no evidence of malignancy. The patient was using Karly and Adaptic topically, applied on a daily basis. The patient is nonambulatory, spending a large portion of each day sitting in 1 of 2 chairs at her home. She also sleeps in a chair. Patient is profoundly kyphotic. [facility] Medical History Acute GI bleeding Chronic renal disease, stage 3, moderately decreased glomerular filtration rate (GFR) between 30-59 mL/min/1.73 square meter Chronic renal disease, stage III Colitis Colitis Congestive heart failure (CHF) Depressed Depression Diabetes mellitus Diastolic CHF, chronic Essential hypertension First degree AV block GERD (gastroesophageal reflux disease) GI bleed Gout Gout Gout Heart block AV first degree History of GI bleed Hypothyroidism Kidney disease Kyphoscoliosis Non-smoker Osteoporosis Osteoporosis Premature atrial contractions Premature atrial contractions Premature supraventricular beats Premature ventricular contraction Pressure ulcer of back PVCs (premature ventricular contractions) Type 2 diabetes mellitus Ventricular ectopy Home Medications allopurinol 100 mg tablet 100 mg PO DAILYCM gout 12/04/13 [History Last Taken 07/04/21] folic acid 1 mg tablet 1 mg PO BIDCM supplement 12/04/13 [History Last Taken 07/04/21] biotin 10,000 mcg capsule 5,000 mcg PO DAILY supplement 03/10/16 [History Last Taken 07/04/21] montelukast 10 mg tablet 10 mg PO QHS allergies 03/10/16 [History Last Taken 07/03/21] docusate sodium 100 mg capsule 100 mg PO BID stool softener 03/15/16 [History Last Taken 07/04/21] multivit with wfuzjech-uhum-TN-lutein 8 mg iron-400 mcg-300 mcg tablet 1 ea PO DAILY vitamin 10/17/16 [History Last Taken 07/04/21] cholecalciferol (vitamin D3) 1,250 mcg (50,000 unit) capsule 50,000 unit PO QMONTH supplement 05/25/18 [History Last Taken 06/05/21] insulin aspart U-100 100 unit/mL (3 mL) subcutaneous pen 4 unit subcut 0700,1200,1700 insulin 05/25/18 [History Last Taken 07/04/21] insulin glargine 100 unit/mL (3 mL) subcutaneous pen 6 unit subcut QHS insulin 05/26/19 [History Last Taken 07/04/21] levothyroxine 112 mcg tablet 100 mcg PO DAILY thyroid 12/25/19 [History Last Taken 07/04/21] cimetidine 400 mg tablet 800 mg PO DAILY PRN upset stomach 07/04/21 [History Last Taken Unknown] fluticasone propionate 50 mcg/actuation nasal spray,suspension 2 spray NASAL DAILY allergies 07/06/21 [History Last Taken Unknown] furosemide 40 mg tablet 40 mg PO DAILY water pill 07/06/21 [History Last Taken Unknown] melatonin 3 mg tablet 3 mg PO QHS PRN PRN Insomnia #0 tabs 07/06/21 [Rx Last Taken Unknown] nystatin 100,000 unit/gram topical powder (Nyamyc) 1 applic topical BID skin protectant 07/06/21 [History Last Taken Unknown] acetaminophen 500 mg tablet 1,000 mg PO Q6H PRN PRN Pain Score 1-5 #0 tabs 07/19/21 [Rx Last Taken Unknown] cholecalciferol (vitamin D3) 25 mcg (1,000 unit) tablet 25 mcg PO 0800 #0 tabs 07/19/21 [Rx Last Taken Unknown] losartan 25 mg tablet 25 mg PO DAILY #0 tabs 07/19/21 [Rx Last Taken Unknown] ondansetron 4 mg disintegrating tablet 4 mg PO Q8H PRN nausea and vomiting 30 days #90 tabs 07/19/21 [Rx Last Taken Unknown] oxycodone 5 mg tablet 10 mg PO Q8H PRN PRN PAIN 1-10 3 days #18 tabs 07/19/21 [Rx Last Taken Unknown] pantoprazole 40 mg tablet,delayed release 40 mg PO DAILY 30 days #30 tabs 07/19/21 [Rx Last Taken Unknown] amlodipine 10 mg tablet (Norvasc) 5 mg PO DAILY 04/25/22 [History Last Taken Unknown] aspirin 81 mg tablet,delayed release (Adult Low Dose Aspirin) 81 mg PO DAILY 04/25/22 [History Last Taken Unknown] meclizine 12.5 mg tablet 12.5 mg PO BID PRN Nausea 04/25/22 [History Last Taken Unknown] polysaccharide iron complex 150 mg iron capsule (iFerex 150) 150 mg PO .qod 04/25/22 [History Last Taken Unknown] Allergy/AdvReac Type Severity Reaction Status Date / Time shellfish derived Allergy Severe Anaphylaxis Verified 04/25/22 11:11 hydrochlorothiazide Allergy Unknown Verified 04/25/22 11:11 [From Prinzide] Iodinated Contrast Media Allergy Anaphylaxis Verified 04/25/22 11:11 [Iodinated Contrast Media - IV Dye] lisinopril [From Prinzide] Allergy Unknown Verified 04/25/22 11:11 neomycin [Neomycin] Allergy Unknown Verified 04/25/22 11:11 guaifenesin [From Mucinex] AdvReac Severe PT UNSURE Verified 04/25/22 11:11 OF REACTION Family History Father CVA (cerebral vascular accident) Myocardial infarction Heart disease Mother Cancer Brother Pacemaker Surgical History History of appendectomy History of appendectomy History of back surgery History of back surgery History of cholecystectomy History of cholecystectomy History of tonsillectomy History of tonsillectomy Social History household members: none Smoking Status: Never smoker alcohol intake: never caffeine: Yes Type: coffee Number of servings: 4 Vital Signs Vital Signs Vital Signs: 08/27/22 11:28 Temperature 97.0 F L Temperature Source Temporal Pulse Rate 81 Respiratory Rate 16 Blood Pressure 133/49 H Blood Pressure Mean 77 Blood Pressure Source Monitor Blood Pressure Position Sitting Blood Pressure Location Left Forearm Oxygen Delivery Method Room Air Weight Weight: 180 lb Body Mass Index (BMI) 32.9 Physical Exam Const alert, oriented x3, no apparent distress and well nourished Constitutional Narrative: The patient appears frail and elderly. A profoundly kyphotic posture is noted. General Appearance: cooperative, comfortable, well kempt and well developed Orientation / Consciousness: awake, oriented to person, oriented to place and oriented to time HEENT normocephalic and head/scalp atraumatic Head and Scalp: normal to inspection, normocephalic, atraumatic and other Other Details: Alopecia is noted. Face and Sinus: normal facial exam External Ear: external ears normal Eyes PERRL and EOMs intact bilaterally General Eye: normal appearance of both eyes Resp normal respiratory effort, normal air movement, no retractions and no use of accessory muscles Effort and Inspection: able to speak in complete sentences Extremity no calf tenderness Extremity Narrative: Bilateral lower extremity swelling and edema are noted. General Extremity: Negative for clubbing or cyanosis Skin Wound Narrative: A superficial wound is noted on the patient's right posterior flank. There is mild periwound erythema, which is recent since the patient's last visit. There is a large amount of bioburden and some remaining nonviable/necrotic tissue. There appears to be mild peripheral epithelialization. Dimensions are documented elsewhere. Hair: general thinning Neuro oriented x3, CN's II-XII intact bilaterally, moves all extremities and no focal motor deficits Sensorium / Orientation: awake, alert, oriented to person, oriented to place and oriented to time Speech: speech normal Psych Appearance: grossly normal and appropriate Attitude: calm Activity / Motor Behavior: appropriate eye contact Speech: normal speech Mood & Affect: euthymic mood Thought Process: normal thought process Thought Content: normal thought content Attention / Concentration: attention grossly intact Debridement Note Debridement Note Wound debrided: Right posterior flank Laterality: Right Wound Grade/Stage: Stage 3 pressure ulcer Type of Debridement: Excisional debridement Anesthesia Used: 5% Lidocaine Gel Depth: Down to and including healthy tissue and in the subcutaneous layer Percentage of wound debrided: 100 Instrument Used: 5mm curette, Forceps and - (Scissors) Tissue Removed: Bioburden Severity: Fat Layer Exposed Amount of bleeding with debridement: Mild Bleeding Controlled with: Compression and gauze Patient tolerated procedure: Patient tolerated procedure well Debridement Free Text: Because of the development of periwound erythema since the patient's last evaluation, swab cultures were obtained for both aerobic and anaerobic bacterial growth. Post-Debridement Measurements and Additional Note: Post-Debridement Measurements/Treatment - Nurse 1 - General Ulcer Assessment Start: 08/13/22 11:12 Freq: Status: Active Protocol: NeurosearchTONO Activity Type Activity Date Activity User E-sign Co-sign Detail Recorded Client Recorded Date Recorded By Document 08/13/22 11:12 MW [id number] 08/13/22 11:20 MW Document 08/27/22 11:28 MW [id number] 08/27/22 11:36 MW 08/13/22 08/27/22 11:12 11:28 - Today's Visit Information Type of service Follow-up Visit Follow-up Visit (Physician/LEAK DETECTION ENGINEER (Physician/LEAK DETECTION ENGINEER ) ) Arrival Mode Wheelchair Wheelchair Transfer Assistance None None Accompanied by caregiver caregiver Patient Identification Verified (Name & Yes Yes ) Patient Requires Transmission-Based No No Precautions Safety Precautions Fall Prevention Height and Weight Body Mass Index (BMI) 32.9 32.9 BMI Classification Obese Obese Vital Signs Temperature (97.8 F-99.1 F) 96.9 F L 97.0 F L Temperature Source Temporal Temporal Pulse Rate (60-100) 81 Pulse Location Monitor Respiratory Rate (12-18) 16 Respiratory rate source Observation Oxygen Delivery Method Room Air Blood Pressure (90/60-120/80) 133/49 H Blood Pressure Mean 77 Source Monitor Position Sitting Blood Pressure Location Left Forearm History Since Last Visit- (Skip if this is Patient's initial visit) Have you changed medications since your No No last visit? Any new allergies or adverse reactions No Had a fall/change in ADL's that may No No increase risk of falls Signs or symptoms of abuse and/or No neglect since last visit Have you been in the hospital since your Yes No last visit? Has dressing in place as prescribed Yes Yes Has compression in place as prescribed N/A N/A Has offloadiing in place as prescribed N/A N/A Experienced any changes in pain level or No No management Left Footwear Regular Shoe Regular Shoe Right Footwear [place]/Foam Regular Shoe Pain Scale: 0-10 Numeric Is Patient Pain Free? Yes No WC - Nurse 1 - General Ulcer Measurement Start: 08/13/22 11:12 Freq: Status: Active Protocol: Activity Type Activity Date Activity User E-sign Co-sign Detail Recorded Client Recorded Date Recorded By Document 08/13/22 11:12 MW [id number] 08/13/22 11:20 MW Document 08/27/22 11:28 MW [id number] 08/27/22 11:36 MW 08/13/22 08/27/22 11:12 11:28 Wound Center Nurse 1 #1 right mid-back -Combined with other wound No No -Current Size (cm) - Length 1.0 1.3 -Current Size (cm) - Width 0.8 0.6 -Current Size (cm) - Depth 0.1 0.1 -Total Square Cm 0.80 0.78 -Date of Last Picture (Recall this 08/13/22 08/27/22 field) -Photo Taken Yes Yes -Epithelialization None Present None Present -Tunneling No No -Undermining/Tunneling No No -Circular Undermining No No -Exudate Amt Small Small -Exudate Type Serosanguineous Serosanguineous -Wound Margin Flat & Intact Flat & Intact -Granulation Amt None Present (0 None Present (0 %) %) -Granulation Quality N/A N/A -Slough/Fibrin Yes Yes -Necrosis Amt Large (67-100%) Large (67-100%) -Necrotic Tissue Type Adherent Slough Adherent Slough -Structure Exposed N/A N/A -Texture (Ericka-wound Skin Appearance) Assessed, Assessed, Scarring Scarring -Moisture (Ericka-wound Skin Appearance) Assessed,Dry/ No Abnormality, Scaly Assessed -Color (Ericka-wound Skin Appearance) Assessed, Assessed, Erythema Erythema -Temperature (Ericka-wound Skin No Abnormality No Abnormality Appearance) (Pt Warm) (Pt Warm) -Tenderness on Palpation (Ericka-wound Yes Yes Skin Appearance) -Ulcer Cleansing Rinsed/ Not Cleansed Irrigated with Saline -Foul Odor after Cleansing No No -Anesthetic Used 5% Lidocaine 5% Lidocaine Gel Gel Lower Limb Edema Present No No WC - Nurse 2 - General Ulcer CM Notes Start: 08/13/22 11:12 Freq: Status: Active Protocol: Activity Type Activity Date Activity User E-sign Co-sign Detail Recorded Client Recorded Date Recorded By Document 08/13/22 15:24 PL [id number] 08/13/22 15:25 PL 08/13/22 15:24 Wound Center Nurse 2 #1 right mid-back -Time 11:26 -Correct Patient Yes -Correct Side, Site, Position Yes -Correct Procedure Yes -Procedure Performed Yes -Type of Procedure Debridement -Clinical Debridement Subcutaneous -Tissue Removed Subcutaneous -Post Debridement (cm) - Length 1.0 -Post Debridement (cm) - Width 0.8 -Post Debridement (cm) - Depth 0.1 -Total Square (Post) (cm) 0.80 -Area of Debridement (cm) - Length 1.0 -Area of Debridement (cm) - Width 0.8 -Total Square (Area) (cm) 0.80 -Tunneling No -Undermining/Tunneling No -Circular Undermining No -Wound/Ulcer Outcome Not Healed -Ulcer Cleansing Rinsed/ Irrigated with Saline -Foul Odor after Cleansing No -Bioengineered Tissue No -Bleeding Controlled with Pressure -Treatment Response Procedure Tolerated Well -Debridement - Subq, 1st 20sq cm Yes Pain Scale: 0-10 Numeric Is Patient Pain Free? Yes WC - Nurse 3 - General Ulcer D/C NN Start: 08/13/22 11:12 Freq: Status: Active Protocol: Activity Type Activity Date Activity User E-sign Co-sign Detail Recorded Client Recorded Date Recorded By Document 08/13/22 11:38 MW [id number] 08/13/22 11:39 MW 08/13/22 11:38 Wound Care Center Nurse 3 #1 right mid-back -Ulcer Cleansing Rinsed/ Irrigated with Saline -Foul Odor after Cleansing No -Negative Pressure Wound Therapy N/A -Primary Dressing Applied Mepilex Border -Other Dressing c.hydrogel -Mepilex Border 1 Treatment Response Procedure Tolerated Well Pain Scale: 0-10 Numeric Is Patient Pain Free? Yes Teaching: Wound Center Dressing Your Wound -Person Taught Patient,Primary Caregiver -Teaching Method Discussion, Demonstration -Response to teaching Verbalize understanding WC - Visit Discharge Discharge Condition Stable Ambulatory Status Wheelchair Transportation Private Auto Accompanied by caregiver Medication Reconcilliation completed & No provided to patient/care provider Clinical Summary of Care Provided Yes Assessment/Plan Assessment/Plan (1) Pressure ulcer of back: CODE(S): L89.109 - Pressure ulcer of unspecified part of back, unspecified stage QUALIFIERS: Pressure injury stage: stage 1 Qualified Code(s): L89.101 - Pressure ulcer of unspecified part of back, stage 1 (2) Kyphoscoliosis: CODE(S): M41.9 - Scoliosis, unspecified (3) Debility: CODE(S): R53.81 - Other malaise (4) Failure to thrive: QUALIFIERS: Failure to thrive age range: in adult Qualified Code(s): R62.7 - Adult failure to thrive (5) Essential hypertension: CODE(S): I10 - Essential (primary) hypertension (6) Gastroesophageal reflux disease: CODE(S): K21.9 - Gastro-esophageal reflux disease without esophagitis (7) Hypothyroidism: CODE(S): E03.9 - Hypothyroidism, unspecified (8) Diabetes mellitus: CODE(S): E11.9 - Type 2 diabetes mellitus without complications (9) Vitamin D deficiency: CODE(S): E55.9 - Vitamin D deficiency, unspecified (10) Chronic diastolic congestive heart failure: CODE(S): I50.32 - Chronic diastolic (congestive) heart failure (11) Chronic renal disease, stage III: CODE(S): N18.30 - Chronic kidney disease, stage 3 unspecified (12) Heart block AV first degree: CODE(S): I44.0 - Atrioventricular block, first degree (13) Gout: CODE(S): M10.9 - Gout, unspecified (14) Osteoporosis: CODE(S): M81.0 - Age-related osteoporosis without current pathological fracture (15) Premature atrial contractions: CODE(S): I49.1 - Atrial premature depolarization (16) PVCs (premature ventricular contractions): CODE(S): I49.3 - Ventricular premature depolarization (17) History of appendectomy: CODE(S): Z90.49 - Acquired absence of other specified parts of digestive tract (18) History of back surgery: CODE(S): Z98.890 - Other specified postprocedural states (19) History of cholecystectomy: CODE(S): Z90.49 - Acquired absence of other specified parts of digestive tract (20) History of tonsillectomy: CODE(S): Z90.89 - Acquired absence of other organs PLAN: Plan This is an 87-year-old female with a stage III pressure ulceration on the right posterior flank. The patient has been encouraged to optimize her nutritional intake. It is highly suspected that the wound on the patient's right posterior flank is related to pressure phenomenon. The patient has a history of spinal jana insertion for treatment of kyphoscoliosis. Nonetheless, she remains extremely kyphotic, and sits in a chair or wheelchair throughout the day. She is nonambulatory, and she does not and will not sleep in a bed. It appears as though the patient is experiencing pressure phenomenon from her chair against the right posterior flank, the source of her presenting wound. At previous visits, she was advised to implement offloading measures, but her caregiver, at the bedside, indicates that she has been reluctant to do so. Only recently has she consented to the use of a pillow/cushion for offloading measures. We have once again discussed offloading measures in detail. The means by which this can be achieved have been thoroughly explained. There is suspicion that she is leaning to the right, perhaps against an armrest or other firm portion of her chair, resulting in undesired pressure to the area involved. We are to continue the use of collagenase Santyl, which will be applied topically on a daily basis. The patient and her caregiver have been instructed in the appropriate means of application. She has been advised to elevate her lower extremities to heart level, or higher, given that swelling and edema are noted in her lower extremities bilaterally. She also wears compression stockings on a daily basis. Given the development of periwound erythema and redness since patient's last visit, swab cultures have been obtained today for aerobic and anaerobic bacterial growth. Culture results will be awaited. The patient is to return in 1 week for reassessment. Total time: 28 minutes
== END 2022-09-04 23:59 | disposition home or self-care (01) ==
LOC: WC 11:15
PROVIDERS: PCP Family Medicine; Visit Provider Surgery
DX: L89.133 Pressure ulcer of right lower back, stage 3 (principal); I13.0 Hypertensive heart and chronic kidney disease with heart failure and stage 1 through stage 4 chronic kidney disease, or unspecified chronic kidney disease; I50.32 Chronic diastolic (congestive) heart failure; E11.22 Type 2 diabetes mellitus with diabetic chronic kidney disease; Z79.4 Long term (current) use of insulin; N18.30 Chronic kidney disease, stage 3 unspecified; M41.9 Scoliosis, unspecified; I49.3 Ventricular premature depolarization; I49.1 Atrial premature depolarization; E03.9 Hypothyroidism, unspecified; R62.7 Adult failure to thrive; M10.9 Gout, unspecified; E55.9 Vitamin D deficiency, unspecified; K21.9 Gastro-esophageal reflux disease without esophagitis; M81.0 Age-related osteoporosis without current pathological fracture; Z79.82 Long term (current) use of aspirin; Z79.899 Other long term (current) drug therapy
CPT/HCPCS: 11042; 87070; 87075; 87077; 87186; 87205

== ENCOUNTER 2022-10-01 11:15 | Outpatient (RCR) | payer MEDICARE, SELFPAY ==
[2022-09-05 00:19] VITALS: BP 133/49; PULSE 81; RESP 16; TEMP 36.1; BMI 32.9
[2022-09-10 11:20] VITALS: BP 150/83; PULSE 82; RESP 16; TEMP 36.2; BMI 32.9
--- NOTE | 2022-09-10 11:53 | HP.PCM_ITS ---
History of Present Illness Date of Service: 09/10/22 Chief Complaint: Right posterior flank wound History of Wound: This is an 87-year-old female with a pressure wound on the right posterior flank. It has been present for a lengthy period of time. The patient has recently [facility] under the [facility] of [facility] Due to concerns regarding wound infection, cultures were recently performed, which were positive for Enterococcus faecalis and Staphylococcus epidermidis. The patient has recently completed a 10-day course of linezolid 600 mg po twice daily. The patient has been evaluated with regard to her wound by her primary care physician, Dr. Henson, Dr. Suze Ferrara, money examiner, and a surgeon at the [facility]. According to the patient's primary caregiver, who is not related, none of her [facility] providers or Dr. Ferrara have provided clarity as to the source of the patient's wound. The [facility] surgeon indicated it was a lipoma, and Dr. Ferrara suggested it to be scar tissue. Records from [facility] include a dermat opathology report from March 26, 2022, which revealed no evidence of malignancy. The patient was using Karly and Adaptic topically, applied on a daily basis. The patient is nonambulatory, spending a large portion of each day sitting in 1 of 2 chairs at her home. She also sleeps in a chair. Patient is profoundly kyphotic. [facility] Medical History Acute GI bleeding Chronic renal disease, stage 3, moderately decreased glomerular filtration rate (GFR) between 30-59 mL/min/1.73 square meter Chronic renal disease, stage III Colitis Colitis Congestive heart failure (CHF) Depressed Depression Diabetes mellitus Diastolic CHF, chronic Essential hypertension First degree AV block GERD (gastroesophageal reflux disease) GI bleed Gout Gout Gout Heart block AV first degree History of GI bleed Hypothyroidism Kidney disease Kyphoscoliosis Non-smoker Osteoporosis Osteoporosis Premature atrial contractions Premature atrial contractions Premature supraventricular beats Premature ventricular contraction Pressure ulcer of back PVCs (premature ventricular contractions) Type 2 diabetes mellitus Ventricular ectopy Home Medications allopurinol 100 mg tablet 100 mg PO DAILYCM gout 12/04/13 [History Last Taken 07/04/21] folic acid 1 mg tablet 1 mg PO BIDCM supplement 12/04/13 [History Last Taken 07/04/21] biotin 10,000 mcg capsule 5,000 mcg PO DAILY supplement 03/10/16 [History Last Taken 07/04/21] montelukast 10 mg tablet 10 mg PO QHS allergies 03/10/16 [History Last Taken 07/03/21] docusate sodium 100 mg capsule 100 mg PO BID stool softener 03/15/16 [History Last Taken 07/04/21] multivit with alspcwkw-ylwq-YU-lutein 8 mg iron-400 mcg-300 mcg tablet 1 ea PO DAILY vitamin 10/17/16 [History Last Taken 07/04/21] cholecalciferol (vitamin D3) 1,250 mcg (50,000 unit) capsule 50,000 unit PO QMONTH supplement 05/25/18 [History Last Taken 06/05/21] insulin aspart U-100 100 unit/mL (3 mL) subcutaneous pen 4 unit subcut 0700,1200,1700 insulin 05/25/18 [History Last Taken 07/04/21] insulin glargine 100 unit/mL (3 mL) subcutaneous pen 6 unit subcut QHS insulin 05/26/19 [History Last Taken 07/04/21] levothyroxine 112 mcg tablet 100 mcg PO DAILY thyroid 12/25/19 [History Last Taken 07/04/21] cimetidine 400 mg tablet 800 mg PO DAILY PRN upset stomach 07/04/21 [History Last Taken Unknown] fluticasone propionate 50 mcg/actuation nasal spray,suspension 2 spray NASAL DAILY allergies 07/06/21 [History Last Taken Unknown] furosemide 40 mg tablet 40 mg PO DAILY water pill 07/06/21 [History Last Taken Unknown] melatonin 3 mg tablet 3 mg PO QHS PRN PRN Insomnia #0 tabs 07/06/21 [Rx Last Taken Unknown] nystatin 100,000 unit/gram topical powder (Nyamyc) 1 applic topical BID skin protectant 07/06/21 [History Last Taken Unknown] acetaminophen 500 mg tablet 1,000 mg PO Q6H PRN PRN Pain Score 1-5 #0 tabs 07/19/21 [Rx Last Taken Unknown] cholecalciferol (vitamin D3) 25 mcg (1,000 unit) tablet 25 mcg PO 0800 #0 tabs 07/19/21 [Rx Last Taken Unknown] losartan 25 mg tablet 25 mg PO DAILY #0 tabs 07/19/21 [Rx Last Taken Unknown] ondansetron 4 mg disintegrating tablet 4 mg PO Q8H PRN nausea and vomiting 30 days #90 tabs 07/19/21 [Rx Last Taken Unknown] oxycodone 5 mg tablet 10 mg PO Q8H PRN PRN PAIN 1-10 3 days #18 tabs 07/19/21 [Rx Last Taken Unknown] pantoprazole 40 mg tablet,delayed release 40 mg PO DAILY 30 days #30 tabs 07/19/21 [Rx Last Taken Unknown] amlodipine 10 mg tablet (Norvasc) 5 mg PO DAILY 04/25/22 [History Last Taken Unknown] aspirin 81 mg tablet,delayed release (Adult Low Dose Aspirin) 81 mg PO DAILY 04/25/22 [History Last Taken Unknown] meclizine 12.5 mg tablet 12.5 mg PO BID PRN Nausea 04/25/22 [History Last Taken Unknown] polysaccharide iron complex 150 mg iron capsule (iFerex 150) 150 mg PO .qod 04/25/22 [History Last Taken Unknown] Allergy/AdvReac Type Severity Reaction Status Date / Time shellfish derived Allergy Severe Anaphylaxis Verified 04/25/22 11:11 hydrochlorothiazide Allergy Unknown Verified 04/25/22 11:11 [From Prinzide] Iodinated Contrast Media Allergy Anaphylaxis Verified 04/25/22 11:11 [Iodinated Contrast Media - IV Dye] lisinopril [From Prinzide] Allergy Unknown Verified 04/25/22 11:11 neomycin [Neomycin] Allergy Unknown Verified 04/25/22 11:11 guaifenesin [From Mucinex] AdvReac Severe PT UNSURE Verified 04/25/22 11:11 OF REACTION Family History Father CVA (cerebral vascular accident) Myocardial infarction Heart disease Mother Cancer Brother Pacemaker Surgical History History of appendectomy History of appendectomy History of back surgery History of back surgery History of cholecystectomy History of cholecystectomy History of tonsillectomy History of tonsillectomy Social History household members: none Smoking Status: Never smoker alcohol intake: never caffeine: Yes Type: coffee Number of servings: 4 Vital Signs Vital Signs Vital Signs: 09/10/22 11:20 Temperature 97.1 F L Temperature Source Temporal Pulse Rate 82 Respiratory Rate 16 Blood Pressure 150/83 H Blood Pressure Mean 105 Blood Pressure Source Monitor Blood Pressure Position Sitting Blood Pressure Location Left Forearm Oxygen Delivery Method Room Air Weight Weight: 180 lb Body Mass Index (BMI) 32.9 Physical Exam Const alert, oriented x3, no apparent distress and well nourished Constitutional Narrative: The patient appears frail and elderly. A profoundly kyphotic posture is noted. The patient has kyphoscoliosis. General Appearance: cooperative, comfortable, well kempt and well developed Orientation / Consciousness: awake, oriented to person, oriented to place and oriented to time HEENT normocephalic and head/scalp atraumatic Head and Scalp: normal to inspection, normocephalic, atraumatic and other Other Details: Alopecia is noted. Face and Sinus: normal facial exam External Ear: external ears normal Eyes PERRL and EOMs intact bilaterally General Eye: normal appearance of both eyes Resp normal respiratory effort, normal air movement, no retractions and no use of acc essory muscles Effort and Inspection: able to speak in complete sentences Extremity no calf tenderness Extremity Narrative: Bilateral lower extremity swelling and edema are noted. General Extremity: Negative for clubbing or cyanosis Skin Wound Narrative: A superficial wound is noted on the patient's right posterior flank. The periwound erythema appears to be diminished. The wound appears to be somewhat smaller in size, with evidence of peripheral epithelialization. There is a small amount of bioburden. The amount of nonviable and necrotic tissue has diminished, and is now nearly gone. Dimensions are documented elsewhere. Hair: general thinning Neuro oriented x3, CN's II-XII intact bilaterally, moves all extremities and no focal motor deficits Sensorium / Orientation: awake, alert, oriented to person, oriented to place and oriented to time Speech: speech normal Psych Appearance: grossly normal and appropriate Attitude: calm Activity / Motor Behavior: appropriate eye contact Speech: normal speech Mood & Affect: euthymic mood Thought Process: normal thought process Thought Content: normal thought content Attention / Concentration: attention grossly intact Debridement Note Debridement Note Wound debrided: Right posterior flank Laterality: Right Wound Grade/Stage: Stage 3 pressure ulcer Type of Debridement: Excisional debridement Anesthesia Used: 5% Lidocaine Gel Depth: Down to and including healthy tissue and in the subcutaneous layer Percentage of wound debrided: 100 Instrument Used: 5mm curette Tissue Removed: Bioburden Severity: Fat Layer Exposed Amount of bleeding with debridement: Mild Bleeding Controlled with: Compression and gauze Patient tolerated procedure: Patient tolerated procedure well Post-Debridement Measurements and Additional Note: Post-Debridement Measurements/Treatment DUYEN - Nurse 1 - General Ulcer Assessment Start: 09/10/22 11:19 Freq: Status: Active Protocol: AMY Activity Type Activity Date Activity User E-sign Co-sign Detail Recorded Client Recorded Date Recorded By Document 09/10/22 11:20 MW [id number] 09/10/22 11:24 MW 09/10/22 11:20 WC - Today's Visit Information Type of service Follow-up Visit (Physician/GENERAL FARM MANAGER ) Arrival Mode Wheelchair Transfer Assistance None Accompanied by caregiver Patient Identification Verified (Name & Yes ) Patient Requires Transmission-Based No Precautions Safety Precautions Fall Prevention Height and Weight Body Mass Index (BMI) 32.9 BMI Classification Obese Vital Signs Temperature (97.8 F-99.1 F) 97.1 F L Temperature Source Temporal Pulse Rate (60-100) 82 Pulse Location Monitor Respiratory Rate (12-18) 16 Respiratory rate source Observation Oxygen Delivery Method Room Air Blood Pressure (90/60-120/80) 150/83 H Blood Pressure Mean 105 Source Monitor Position Sitting Blood Pressure Location Left Forearm History Since Last Visit- (Skip if this is Patient's initial visit) Have you changed medications since your No last visit? Any new allergies or adverse reactions No Had a fall/change in ADL's that may No increase risk of falls Has dressing in place as prescribed Yes Has offloadiing in place as prescribed N/A Experienced any changes in pain level or No management Left Footwear Regular Shoe Right Footwear Regular Shoe Pain Scale: 0-10 Numeric Is Patient Pain Free? Yes - Nurse 1 - General Ulcer Measurement Start: 09/10/22 11:19 Freq: Status: Active Protocol: Activity Type Activity Date Activity User E-sign Co-sign Detail Recorded Client Recorded Date Recorded By Document 09/10/22 11:20 MW [id number] 09/10/22 11:24 MW 09/10/22 11:20 Wound Center Nurse 1 #1 right mid-back -Combined with other wound No -Current Size (cm) - Length 1.4 -Current Size (cm) - Width 0.6 -Current Size (cm) - Depth 0.1 -Total Square Cm 0.84 -Photo Taken Yes -Exudate Amt Medium -Exudate Type Serosanguineous -Wound Margin Distinct, Outline Attached -Granulation Amt Small (1-33%) -Granulation Quality [place] -Necrosis Amt Large (67-100%) -Necrotic Tissue Type Adherent Slough -Structure Exposed N/A -Texture (Ericka-wound Skin Appearance) Scarring -Moisture (Ericka-wound Skin Appearance) No Abnormality -Color (Ericka-wound Skin Appearance) No Abnormality -Temperature (Ericka-wound Skin No Abnormality Appearance) (Pt Warm) -Ulcer Cleansing Soap and Water -Foul Odor after Cleansing No -Anesthetic Used 5% Lidocaine Gel Assessment/Plan Assessment/Plan (1) Pressure ulcer of back: CODE(S): L89.109 - Pressure ulcer of unspecified part of back, unspecified stage QUALIFIERS: Pressure injury stage: stage 1 Qualified Code(s): L89.101 - Pressure ulcer of unspecified part of back, stage 1 (2) Kyphoscoliosis: CODE(S): M41.9 - Scoliosis, unspecified (3) Debility: CODE(S): R53.81 - Other malaise (4) Failure to thrive: QUALIFIERS: Failure to thrive age range: in adult Qualified Code(s): R62.7 - Adult failure to thrive (5) Essential hypertension: CODE(S): I10 - Essential (primary) hypertension (6) Gastroesophageal reflux disease: CODE(S): K21.9 - Gastro-esophageal reflux disease without esophagitis (7) Hypothyroidism: CODE(S): E03.9 - Hypothyroidism, unspecified (8) Diabetes mellitus: CODE(S): E11.9 - Type 2 diabetes mellitus without complications (9) Vitamin D deficiency: CODE(S): E55.9 - Vitamin D deficiency, unspecified (10) Chronic diastolic congestive heart failure: CODE(S): I50.32 - Chronic diastolic (congestive) heart failure (11) Chronic renal disease, stage III: CODE(S): N18.30 - Chronic kidney disease, stage 3 unspecified (12) Heart block AV first degree: CODE(S): I44.0 - Atrioventricular block, first degree (13) Gout: CODE(S): M10.9 - Gout, unspecified (14) Osteoporosis: CODE(S): M81.0 - Age-related osteoporosis without current pathological fracture (15) Premature atrial contractions: CODE(S): I49.1 - Atrial premature depolarization (16) PVCs (premature ventricular contractions): CODE(S): I49.3 - Ventricular premature depolarization (17) History of appendectomy: CODE(S): Z90.49 - Acquired absence of other specified parts of digestive tract (18) History of back surgery: CODE(S): Z98.890 - Other specified postprocedural states (19) History of cholecystectomy: CODE(S): Z90.49 - Acquired absence of other specified parts of digestive tract (20) History of tonsillectomy: CODE(S): Z90.89 - Acquired absence of other organs PLAN: Plan This is an 87-year-old female with a stage I pressure ulceration on the right posterior flank. The patient has been encouraged to optimize her nutritional intake. It is highly suspected that the wound on the patient's right posterior flank is related to pressure phenomenon. The patient has a history of spinal jana insertion for treatment of kyphoscoliosis. Nonetheless, she remains extremely kyphotic, and sits in a chair or wheelchair throughout the day. She is nonambulatory, and she does not and will not sleep in a bed. It appears as though the patient is experiencing pressure phenomenon from her chair against the right posterior flank, the source of her presenting wound. At previous visits, she was advised to implement offloading measures. It appears as though there has been some degree of noncompliance, but her most recent caregiver appears to be more diligent in reminding the patient to implement offloading measures. She has recently consented to the use of a pillow/cushion for offloading purposes. We have once again discussed offloading measures in detail. The means by which this can be achieved have been thoroughly explained. There is suspicion that she is leaning to the right, perhaps against an armrest or other firm portion of her chair, resulting in undesired pressure to the area involved. We are to continue the use of collagenase Santyl, which will be applied topically on a daily basis. The patient and her caregiver have been instructed in the appropriate means of application. She has been advised to elevate her lower extremities to heart level, or higher, given that swelling and edema are noted in her lower extremities bilaterally. She also wears compression stockings on a daily basis. Recent cultures were positive for Staphylococcus epidermidis and Staphylococcus capitis. As result, the patient has been placed on clindamycin 300 mg p.o. every 6 hours for total of 7 days. She is currently in the midst of this prescription, and has been instructed to take to completion. The patient is to return in 2 weeks for reassessment. Total time: 25 minutes
[2022-10-01 11:13] VITALS: BP 165/53; PULSE 80; RESP 16; TEMP 36.1; BMI 32.9
--- NOTE | 2022-10-01 11:49 | HP.PCM_ITS ---
History of Present Illness Date of Service: 10/01/22 Chief Complaint: Right posterior flank wound History of Wound: This is an 87-year-old female with a pressure wound on the right posterior flank. It has been present for a lengthy period of time. The patient has recently been under the care of [facility] Due to concerns regarding wound infection, cultures were recently performed, which were positive for Enterococcus faecalis and Staphylococcus epidermidis. The patient has recently completed a 10-day course of linezolid 600 mg po twice daily. The patient has been evaluated with regard to her wound by her primary care physician, Dr. Henson, Dr. Suze Ferrara, [employer] consultant, and a surgeon at the [facility]. According to the patient's primary caregiver, who is not related, none of her [facility] providers or Dr. Ferrara have provided clarity as to the source of the patient's wound. The [facility] surgeon indicated it was a lipoma, and Dr. Ferrara suggested it to be scar tissue. Records from [facility] include a dermat opathology report from March 26, 2022, which revealed no evidence of malignancy. The patient was using Karly and Adaptic topically, applied on a daily basis. The patient is nonambulatory, spending a large portion of each day sitting in 1 of 2 chairs at her home. She also sleeps in a chair. Patient is profoundly kyphotic. [facility] Medical History Acute GI bleeding Chronic renal disease, stage 3, moderately decreased glomerular filtration rate (GFR) between 30-59 mL/min/1.73 square meter Chronic renal disease, stage III Colitis Colitis Congestive heart failure (CHF) Depressed Depression Diabetes mellitus Diastolic CHF, chronic Essential hypertension First degree AV block GERD (gastroesophageal reflux disease) GI bleed Gout Gout Gout Heart block AV first degree History of GI bleed Hypothyroidism Kidney disease Kyphoscoliosis Non-smoker Osteoporosis Osteoporosis Premature atrial contractions Premature atrial contractions Premature supraventricular beats Premature ventricular contraction Pressure ulcer of back PVCs (premature ventricular contractions) Type 2 diabetes mellitus Ventricular ectopy Home Medications allopurinol 100 mg tablet 100 mg PO DAILYCM gout 12/04/13 [History Last Taken 07/04/21] folic acid 1 mg tablet 1 mg PO BIDCM supplement 12/04/13 [History Last Taken 07/04/21] biotin 10,000 mcg capsule 5,000 mcg PO DAILY supplement 03/10/16 [History Last Taken 07/04/21] montelukast 10 mg tablet 10 mg PO QHS allergies 03/10/16 [History Last Taken 07/03/21] docusate sodium 100 mg capsule 100 mg PO BID stool softener 03/15/16 [History Last Taken 07/04/21] uxgfupql-xujw-tzfe 8 mg-folic 400 mcg-K 50 mcg-lutein 300 mcg tablet 1 ea PO DAILY vitamin 10/17/16 [History Last Taken 07/04/21] cholecalciferol (vitamin D3) 1,250 mcg (50,000 unit) capsule 50,000 unit PO QMONTH supplement 05/25/18 [History Last Taken 06/05/21] insulin aspart U-100 100 unit/mL (3 mL) subcutaneous pen 4 unit subcut 0700,1200,1700 insulin 05/25/18 [History Last Taken 07/04/21] insulin glargine 100 unit/mL (3 mL) subcutaneous pen 6 unit subcut QHS insulin 05/26/19 [History Last Taken 07/04/21] levothyroxine 112 mcg tablet 100 mcg PO DAILY thyroid 12/25/19 [History Last Taken 07/04/21] cimetidine 400 mg tablet 800 mg PO DAILY PRN upset stomach 07/04/21 [History Last Taken Unknown] fluticasone propionate 50 mcg/actuation nasal spray,suspension 2 spray NASAL DAILY allergies 07/06/21 [History Last Taken Unknown] furosemide 40 mg tablet 40 mg PO DAILY water pill 07/06/21 [History Last Taken Unknown] melatonin 3 mg tablet 3 mg PO QHS PRN PRN Insomnia #0 tabs 07/06/21 [Rx Last Taken Unknown] nystatin 100,000 unit/gram topical powder (Nyamyc) 1 applic topical BID skin protectant 07/06/21 [History Last Taken Unknown] acetaminophen 500 mg tablet 1,000 mg PO Q6H PRN PRN Pain Score 1-5 #0 tabs 07/19/21 [Rx Last Taken Unknown] cholecalciferol (vitamin D3) 25 mcg (1,000 unit) tablet 25 mcg PO 0800 #0 tabs 07/19/21 [Rx Last Taken Unknown] losartan 25 mg tablet 25 mg PO DAILY #0 tabs 07/19/21 [Rx Last Taken Unknown] ondansetron 4 mg disintegrating tablet 4 mg PO Q8H PRN nausea and vomiting 30 days #90 tabs 07/19/21 [Rx Last Taken Unknown] oxycodone 5 mg tablet 10 mg PO Q8H PRN PRN PAIN 1-10 3 days #18 tabs 07/19/21 [Rx Last Taken Unknown] pantoprazole 40 mg tablet,delayed release 40 mg PO DAILY 30 days #30 tabs 07/19/21 [Rx Last Taken Unknown] amlodipine 10 mg tablet (Norvasc) 5 mg PO DAILY 04/25/22 [History Last Taken Unknown] aspirin 81 mg tablet,delayed release (Adult Low Dose Aspirin) 81 mg PO DAILY 04/25/22 [History Last Taken Unknown] meclizine 12.5 mg tablet 12.5 mg PO BID PRN Nausea 04/25/22 [History Last Taken Unknown] polysaccharide iron complex 150 mg iron capsule (iFerex 150) 150 mg PO .qod 04/25/22 [History Last Taken Unknown] Allergy/AdvReac Type Severity Reaction Status Date / Time shellfish derived Allergy Severe Anaphylaxis Verified 04/25/22 11:11 hydrochlorothiazide Allergy Unknown Verified 04/25/22 11:11 [From Prinzide] Iodinated Contrast Media Allergy Anaphylaxis Verified 04/25/22 11:11 [Iodinated Contrast Media - IV Dye] lisinopril [From Prinzide] Allergy Unknown Verified 04/25/22 11:11 neomycin [Neomycin] Allergy Unknown Verified 04/25/22 11:11 guaifenesin [From Mucinex] AdvReac Severe PT UNSURE Verified 04/25/22 11:11 OF REACTION Family History Father CVA (cerebral vascular accident) Myocardial infarction Heart disease Mother Cancer Brother Pacemaker Surgical History History of appendectomy History of appendectomy History of back surgery History of back surgery History of cholecystectomy History of cholecystectomy History of tonsillectomy History of tonsillectomy Social History household members: none Smoking Status: Never smoker alcohol intake: never caffeine: Yes Type: coffee Number of servings: 4 Vital Signs Vital Signs Vital Signs: 10/01/22 11:13 Temperature 96.9 F L Temperature Source Temporal Pulse Rate 80 Respiratory Rate 16 Blood Pressure 165/53 H Blood Pressure Mean 90 Blood Pressure Source Monitor Blood Pressure Position Sitting Blood Pressure Location Right Arm Oxygen Delivery Method Room Air Weight Weight: 180 lb Body Mass Index (BMI) 32.9 Physical Exam Const alert, oriented x3, no apparent distress and well nourished Constitutional Narrative: The patient appears frail and elderly. A profoundly kyphotic posture is noted. The patient has kyphoscoliosis. General Appearance: cooperative, comfortable, well kempt and well developed Orientation / Consciousness: awake, oriented to person, oriented to place and oriented to time HEENT normocephalic and head/scalp atraumatic Head and Scalp: normal to inspection, normocephalic, atraumatic and other Other Details: Alopecia is noted. Face and Sinus: normal facial exam External Ear: external ears normal Eyes PERRL and EOMs intact bilaterally General Eye: normal appearance of both eyes Resp normal respiratory effort, normal air movement, no retractions and no use of accessory muscles Effort and Inspection: able to speak in complete sentences Extremity no calf tenderness Extremity Narrative: Bilateral lower extremity swelling and edema are noted. General Extremity: Negative for clubbing or cyanosis Skin Wound Narrative: A superficial wound is noted on the patient's right posterior flank. The periwound erythema has disappeared. The wound is now much smaller in size, with evidence of peripheral epithelialization. Dimensions are documented elsewhere. There is a small amount of bioburden. Necrotic tissue is gone. Hair: general thinning Neuro oriented x3, CN's II-XII intact bilaterally, moves all extremities and no focal motor deficits Sensorium / Orientation: awake, alert, oriented to person, oriented to place and oriented to time Speech: speech normal Psych Appearance: grossly normal and appropriate Attitude: calm Activity / Motor Behavior: appropriate eye contact Speech: normal speech Mood & Affect: euthymic mood Thought Process: normal thought process Thought Content: normal thought content Attention / Concentration: attention grossly intact Debridement Note Debridement Note Wound debrided: Right posterior flank Laterality: Right Wound Grade/Stage: Stage 3 pressure ulcer Type of Debridement: Excisional debridement Anesthesia Used: 5% Lidocaine Gel Depth: Down to and including healthy tissue and in the subcutaneous layer Percentage of wound debrided: 100 Instrument Used: 5mm curette Tissue Removed: Bioburden Severity: Fat Layer Exposed Amount of bleeding with debridement: Mild Bleeding Controlled with: Compression and gauze Patient tolerated procedure: Patient tolerated procedure well Post-Debridement Measurements and Additional Note: Post-Debridement Measurements/Treatment - Nurse 1 - General Ulcer Assessment Start: 09/10/22 11:19 Freq: Status: Active Protocol: DUYEN.LOWEXBetty Activity Type Activity Date Activity User E-sign Co-sign Detail Recorded Client Recorded Date Recorded By Document 09/10/22 11:20 [id number] 09/10/22 11:24 MW Document 10/01/22 11:13 [facility] [id number] 10/01/22 11:23 BM 09/10/22 10/01/22 11:20 11:13 - Today's Visit Information Type of service Follow-up Visit Follow-up Visit (Physician/[employer] (Physician/[employer] ) ) Arrival Mode Wheelchair Wheelchair Transfer Assistance None None Accompanied by caregiver CAREGIVER Patient Identification Verified (Name & Yes Yes ) Patient Requires Transmission-Based No No Precautions Safety Precautions Fall Prevention Height and Weight Body Mass Index (BMI) 32.9 32.9 BMI Classification Obese Obese Vital Signs Temperature (97.8 F-99.1 F) 97.1 F L 96.9 F L Temperature Source Temporal Temporal Pulse Rate (60-100) 82 80 Pulse Location Monitor Monitor Respiratory Rate (12-18) 16 16 Respiratory rate source Observation Observation Oxygen Delivery Method Room Air Room Air Blood Pressure (90/60-120/80) 150/83 H 165/53 H Blood Pressure Mean 105 90 Source Monitor Monitor Position Sitting Sitting Blood Pressure Location Left Forearm Right Arm History Since Last Visit- (Skip if this is Patient's initial visit) Have you changed medications since your No No last visit? Any new allergies or adverse reactions No No Had a fall/change in ADL's that may No No increase risk of falls Signs or symptoms of abuse and/or No neglect since last visit Have you been in the hospital since your No last visit? Has dressing in place as prescribed Yes Yes Has compression in place as prescribed N/A Has offloadiing in place as prescribed N/A N/A Experienced any changes in pain level or No No management Left Footwear Regular Shoe Regular Shoe Right Footwear Regular Shoe Regular Shoe Pain Scale: 0-10 Numeric Is Patient Pain Free? Yes Yes WC - Nurse 1 - General Ulcer Measurement Start: 09/10/22 11:19 Freq: Status: Active Protocol: Activity Type Activity Date Activity User E-sign Co-sign Detail Recorded Client Recorded Date Recorded By Document 09/10/22 11:20 MW [id number] 09/10/22 11:24 MW Document 10/01/22 11:13 [facility] [id number] 10/01/22 11:23 [facility] 09/10/22 10/01/22 11:20 11:13 Wound Center Nurse 1 #1 right mid-back -Combined with other wound No No -Current Size (cm) - Length 1.4 1 -Current Size (cm) - Width 0.6 0.4 -Current Size (cm) - Depth 0.1 0.1 -Total Square Cm 0.84 0.4 -Date of Last Picture (Recall this 10/01/22 field) -Photo Taken Yes Yes -Epithelialization Small 1-33% -Tunneling No -Undermining/Tunneling No -Circular Undermining No -Exudate Amt Medium Small -Exudate Type Serosanguineous Serosanguineous -Wound Margin Distinct, Flat & Intact Outline Attached -Granulation Amt Small (1-33%) Medium (34-66%) -Granulation Quality [place] Red -Slough/Fibrin Yes -Necrosis Amt Large (67-100%) Medium (34-66%) -Necrotic Tissue Type Adherent Slough Adherent Slough -Structure Exposed N/A -Texture (Ericka-wound Skin Appearance) Scarring Assessed, Scarring -Moisture (Ericka-wound Skin Appearance) No Abnormality Assessed -Color (Ericka-wound Skin Appearance) No Abnormality Assessed, Erythema -Temperature (Ericka-wound Skin No Abnormality No Abnormality Appearance) (Pt Warm) (Pt Warm) -Tenderness on Palpation (Ericka-wound No Skin Appearance) -Ulcer Cleansing Soap and Water Rinsed/ Irrigated with Saline -Foul Odor after Cleansing No No -Anesthetic Used 5% Lidocaine 5% Lidocaine Gel Gel WC - Nurse 2 - General Ulcer CM Notes Start: 09/10/22 11:19 Freq: Status: Active Protocol: Activity Type Activity Date Activity User E-sign Co-sign Detail Recorded Client Recorded Date Recorded By Document 09/10/22 12:09 PL [id number] 09/10/22 12:10 PL 09/10/22 12:09 Wound Center Nurse 2 -Time 11:36 -Correct Patient Yes -Correct Side, Site, Position Yes -Correct Procedure Yes -Clinical Debridement Subcutaneous -Tissue Removed Subcutaneous -Post Debridement (cm) - Length 1.4 -Post Debridement (cm) - Width 0.6 -Post Debridement (cm) - Depth 0.1 -Total Square (Post) (cm) 0.84 -Area of Debridement (cm) - Length 1.4 -Area of Debridement (cm) - Width 0.6 -Total Square (Area) (cm) 0.84 -Tunneling No -Undermining/Tunneling No -Circular Undermining No -Wound/Ulcer Outcome Not Healed -Ulcer Cleansing Rinsed/ Irrigated with Saline -Foul Odor after Cleansing No -Bioengineered Tissue No -Bleeding Controlled with Pressure -Treatment Response Procedure Tolerated Well -Debridement - Subq, 1st 20sq cm Yes Pain Scale: 0-10 Numeric Is Patient Pain Free? Yes - Nurse 3 - General Ulcer D/C NN Start: 09/10/22 11:19 Freq: Status: Active Protocol: Activity Type Activity Date Activity User E-sign Co-sign Detail Recorded Client Recorded Date Recorded By Document 09/10/22 12:09 [id number] 09/10/22 12:10 Document 10/01/22 11:35 DL [id number] 10/01/22 11:36 DL 09/10/22 10/01/22 12:09 11:35 Pain Scale: 0-10 Numeric Is Patient Pain Free? Yes Yes Wound Care Center Nurse 3 #1 right mid-back -Ulcer Cleansing Rinsed/ Rinsed/ Irrigated with Irrigated with Saline Saline -Foul Odor after Cleansing No No -Primary Dressing Applied Mepilex Border Mepilex Border -Other Dressing Hydrogel hydrogel -Mepilex Border 1 1 Treatment Response Procedure Tolerated Well WC - Visit Discharge Discharge Condition Stable Stable Ambulatory Status Wheelchair Wheelchair Transportation Private Auto Accompanied by caregiver Facility Type Home Health Orders Sent Yes Assessment/Plan Assessment/Plan (1) Pressure ulcer of back: CODE(S): L89.109 - Pressure ulcer of unspecified part of back, unspecified stage QUALIFIERS: Pressure injury stage: stage 1 Qualified Code(s): L89.101 - Pressure ulcer of unspecified part of back, stage 1 (2) Kyphoscoliosis: CODE(S): M41.9 - Scoliosis, unspecified (3) Debility: CODE(S): R53.81 - Other malaise (4) Failure to thrive: QUALIFIERS: Failure to thrive age range: in adult Qualified Code(s): R62.7 - Adult failure to thrive (5) Essential hypertension: CODE(S): I10 - Essential (primary) hypertension (6) Gastroesophageal reflux disease: CODE(S): K21.9 - Gastro-esophageal reflux disease without esophagitis (7) Hypothyroidism: CODE(S): E03.9 - Hypothyroidism, unspecified (8) Diabetes mellitus: CODE(S): E11.9 - Type 2 diabetes mellitus without complications (9) Vitamin D deficiency: CODE(S): E55.9 - Vitamin D deficiency, unspecified (10) Chronic diastolic congestive heart failure: CODE(S): I50.32 - Chronic diastolic (congestive) heart failure (11) Chronic renal disease, stage III: CODE(S): N18.30 - Chronic kidney disease, stage 3 unspecified (12) Heart block AV first degree: CODE(S): I44.0 - Atrioventricular block, first degree (13) Gout: CODE(S): M10.9 - Gout, unspecified (14) Osteoporosis: CODE(S): M81.0 - Age-related osteoporosis without current pathological fracture (15) Premature atrial contractions: CODE(S): I49.1 - Atrial premature depolarization (16) PVCs (premature ventricular contractions): CODE(S): I49.3 - Ventricular premature depolarization (17) History of appendectomy: CODE(S): Z90.49 - Acquired absence of other specified parts of digestive tract (18) History of back surgery: CODE(S): Z98.890 - Other specified postprocedural states (19) History of cholecystectomy: CODE(S): Z90.49 - Acquired absence of other specified parts of digestive tract (20) History of tonsillectomy: CODE(S): Z90.89 - Acquired absence of other organs PLAN: Plan This is an 87-year-old female with a stage I pressure ulceration on the right posterior flank. The patient has been encouraged to optimize her nutritional intake. It is highly suspected that the wound on the patient's right posterior flank is related to pressure phenomenon. The patient has a history of spinal jana insertion for treatment of kyphoscoliosis. Nonetheless, she remains extremely kyphotic, and sits in a chair or wheelchair throughout the day. She is nonambulatory, and she does not and will not sleep in a bed. It appears as though the patient is experiencing pressure phenomenon from her chair against the right posterior flank, the source of her presenting wound. At previous visits, she was advised to implement offloading measures. It appears as though there has been some degree of noncompliance, but her most recent caregiver appears to be more diligent in reminding the patient to implement offloading measures. She has recently consented to the use of a pillow/cushion for offloading purposes. We have once again discussed offloading measures in detail. The means by which this can be achieved have been thoroughly explained. There is suspicion that she is leaning to the right, perhaps against an armrest or other firm portion of her chair, resulting in undesired pressure to the area involved. There has been significant improvement within the last week. We are to transition to the use of collagen hydrogel and a foam pad, which will be applied on a daily basis. The pressure ulceration is much improved, and now nearly healed. The patient and her caregiver have been instructed in the appropriate means of application. She has been advised to elevate her lower extremities to heart level, or higher, given that swelling and edema are noted in her lower extremities bilaterally. She also wears compression stockings on a daily basis. The patient is to return in 1 week for reassessment, having shown significant improvement within the last week. Total time: 24 minutes
== END 2022-10-04 23:59 | disposition home or self-care (01) ==
LOC: WC 11:15
PROVIDERS: PCP Family Medicine; Visit Provider Surgery
DX: L89.893 Pressure ulcer of other site, stage 3 (principal); I13.0 Hypertensive heart and chronic kidney disease with heart failure and stage 1 through stage 4 chronic kidney disease, or unspecified chronic kidney disease; I50.32 Chronic diastolic (congestive) heart failure; E11.22 Type 2 diabetes mellitus with diabetic chronic kidney disease; Z79.4 Long term (current) use of insulin; N18.30 Chronic kidney disease, stage 3 unspecified; M81.0 Age-related osteoporosis without current pathological fracture; K21.9 Gastro-esophageal reflux disease without esophagitis; I49.3 Ventricular premature depolarization; M10.9 Gout, unspecified; E55.9 Vitamin D deficiency, unspecified; M41.9 Scoliosis, unspecified; R53.81 Other malaise; E03.9 Hypothyroidism, unspecified; R62.7 Adult failure to thrive; I49.1 Atrial premature depolarization; I44.0 Atrioventricular block, first degree; Z68.32 Body mass index [BMI] 32.0-32.9, adult
CPT/HCPCS: 11042

== ENCOUNTER 2022-10-29 11:00 | Outpatient (RCR) | payer MEDICARE, SELFPAY ==
[2022-10-05 00:45] VITALS: BP 165/53; PULSE 80; RESP 16; TEMP 36.1; BMI 32.9
[2022-10-15 11:18] VITALS: BP 152/52; PULSE 74; RESP 20; TEMP 36.6; BMI 32.9
--- NOTE | 2022-10-15 11:53 | PCM.WC.HP ---
History of Present Illness Date of Service: 10/15/22 Chief Complaint: Right posterior flank wound History of Wound: This is an 87-year-old female with a pressure wound on the right posterior flank. It has been present for a lengthy period of time. The patient has recently been under the care of [facility] Due to concerns regarding wound infection, cultures were recently performed, which were positive for Enterococcus faecalis and Staphylococcus epidermidis. The patient has recently completed a 10-day course of linezolid 600 mg po twice daily. The patient has been evaluated with regard to her wound by her primary care physician, Dr. Henson, Dr. Suze Ferrara, nuisance wildlife control operator, and a surgeon at the [facility]. According to the patient's primary caregiver, who is not related, none of her [facility] providers or Dr. Ferrara have provided clarity as to the source of the patient's wound. The [facility] surgeon indicated it was a lipoma, and Dr. Ferrara suggested it to be scar tissue. Records from [facility] include a dermatopathology report from March 26, 2022, which revealed no evidence of malignancy. The patient was using Karly and Adaptic topically, applied on a daily basis. The patient is nonambulatory, spending a large portion of each day sitting in 1 of 2 chairs at her home. She also sleeps in a chair. Patient is profoundly kyphotic. [facility] Medical History Acute GI bleeding Chronic renal disease, stage 3, moderately decreased glomerular filtration rate (GFR) between 30-59 mL/min/1.73 square meter Chronic renal disease, stage III Colitis Colitis Congestive heart failure (CHF) Depressed Depression Diabetes mellitus Diastolic CHF, chronic Essential hypertension First degree AV block GERD (gastroesophageal reflux disease) GI bleed Gout Gout Gout Heart block AV first degree History of GI bleed Hypothyroidism Kidney disease Kyphoscoliosis Non-smoker Osteoporosis Osteoporosis Premature atrial contractions Premature atrial contractions Premature supraventricular beats Premature ventricular contraction Pressure ulcer of back PVCs (premature ventricular contractions) Type 2 diabetes mellitus Ventricular ectopy Home Medications allopurinol 100 mg tablet 100 mg PO DAILYCM gout 12/04/13 [History Last Taken 07/04/21] folic acid 1 mg tablet 1 mg PO BIDCM supplement 12/04/13 [History Last Taken 07/04/21] biotin 10,000 mcg capsule 5,000 mcg PO DAILY supplement 03/10/16 [History Last Taken 07/04/21] montelukast 10 mg tablet 10 mg PO QHS allergies 03/10/16 [History Last Taken 07/03/21] docusate sodium 100 mg capsule 100 mg PO BID stool softener 03/15/16 [History Last Taken 07/04/21] [id number] 8 mg-folic 400 mcg-K 50 mcg-lutein 300 mcg tablet 1 ea PO DAILY vitamin 10/17/16 [History Last Taken 07/04/21] cholecalciferol (vitamin D3) 1,250 mcg (50,000 unit) capsule 50,000 unit PO QMONTH supplement 05/25/18 [History Last Taken 06/05/21] insulin aspart U-100 100 unit/mL (3 mL) subcutaneous pen 4 unit subcut 0700,1200,1700 insulin 05/25/18 [History Last Taken 07/04/21] insulin glargine 100 unit/mL (3 mL) subcutaneous pen 6 unit subcut QHS insulin 05/26/19 [History Last Taken 07/04/21] levothyroxine 112 mcg tablet 100 mcg PO DAILY thyroid 12/25/19 [History Last Taken 07/04/21] cimetidine 400 mg tablet 800 mg PO DAILY PRN upset stomach 07/04/21 [History Last Taken Unknown] fluticasone propionate 50 mcg/actuation nasal spray,suspension 2 spray NASAL DAILY allergies 07/06/21 [History Last Taken Unknown] furosemide 40 mg tablet 40 mg PO DAILY water pill 07/06/21 [History Last Taken Unknown] melatonin 3 mg tablet 3 mg PO QHS PRN PRN Insomnia #0 tabs 07/06/21 [Rx Last Taken Unknown] nystatin 100,000 unit/gram topical powder (Nyamyc) 1 applic topical BID skin protectant 07/06/21 [History Last Taken Unknown] acetaminophen 500 mg tablet 1,000 mg (2 x 500 mg) PO Q6H PRN PRN Pain Score 1-5 #0 tabs 07/19/21 [Rx Last Taken Unknown] cholecalciferol (vitamin D3) 25 mcg (1,000 unit) tablet 25 mcg PO 0800 #0 tabs 07/19/21 [Rx Last Taken Unknown] losartan 25 mg tablet 25 mg PO DAILY #0 tabs 07/19/21 [Rx Last Taken Unknown] ondansetron 4 mg disintegrating tablet 4 mg PO Q8H PRN nausea and vomiting 30 days #90 tabs 07/19/21 [Rx Last Taken Unknown] oxycodone 5 mg tablet 10 mg (2 x 5 mg) PO Q8H PRN PRN PAIN 1-10 3 days #18 tabs 07/19/21 [Rx Last Taken Unknown] pantoprazole 40 mg tablet,delayed release 40 mg PO DAILY 30 days #30 tabs 07/19/21 [Rx Last Taken Unknown] amlodipine 10 mg tablet (Norvasc) 5 mg PO DAILY 04/25/22 [History Last Taken Unknown] aspirin 81 mg tablet,delayed release (Adult Low Dose Aspirin) 81 mg PO DAILY 04/25/22 [History Last Taken Unknown] meclizine 12.5 mg tablet 12.5 mg PO BID PRN Nausea 04/25/22 [History Last Taken Unknown] polysaccharide iron complex 150 mg iron capsule (iFerex 150) 150 mg PO .qod 04/25/22 [History Last Taken Unknown] Allergy/AdvReac Type Severity Reaction Status Date / Time shellfish derived Allergy Severe Anaphylaxis Verified 04/25/22 11:11 hydrochlorothiazide Allergy Unknown Verified 04/25/22 11:11 [From Prinzide] Iodinated Contrast Media Allergy Anaphylaxis Verified 04/25/22 11:11 [Iodinated Contrast Media - IV Dye] lisinopril [From Prinzide] Allergy Unknown Verified 04/25/22 11:11 neomycin [Neomycin] Allergy Unknown Verified 04/25/22 11:11 guaifenesin [From Mucinex] AdvReac Severe PT UNSURE Verified 04/25/22 11:11 OF REACTION Family History Father CVA (cerebral vascular accident) Myocardial infarction Heart disease Mother Cancer Brother Pacemaker Surgical History History of appendectomy History of appendectomy History of back surgery History of back surgery History of cholecystectomy History of cholecystectomy History of tonsillectomy History of tonsillectomy Social History household members: none Smoking Status: Never smoker alcohol intake: never caffeine: Yes Type: coffee Number of servings: 4 Vital Signs Vital Signs Vital Signs: 10/15/22 11:18 Temperature 97.9 F Temperature Source Temporal Pulse Rate 74 Respiratory Rate 20 H Blood Pressure 152/52 H Blood Pressure Mean 85 Blood Pressure Source Monitor Weight Weight: 180 lb Body Mass Index (BMI) 32.9 Physical Exam Const alert, oriented x3, no apparent distress and well nourished Constitutional Narrative: The patient appears frail and elderly. A profoundly kyphotic posture is noted. The patient has kyphoscoliosis. General Appearance: cooperative, comfortable, well kempt and well developed Orientation / Consciousness: awake, oriented to person, oriented to place and oriented to time HEENT normocephalic and head/scalp atraumatic Head and Scalp: normal to inspection, normocephalic, atraumatic and other Other Details: Alopecia is noted. Face and Sinus: normal facial exam External Ear: external ears normal Eyes PERRL and EOMs intact bilaterally General Eye: normal appearance of both eyes Resp normal respiratory effort, normal air movement, no retractions and no use of accessory muscles Effort and Inspection: able to speak in complete sentences Extremity no calf tenderness Extremity Narrative: Bilateral lower extremity swelling and edema are noted. General Extremity: Negative for clubbing or cyanosis Skin Wound Narrative: A superficial wound is noted on the patient's right posterior flank. The periwound erythema has disappeared. The wound is now much smaller in size, with evidence of peripheral epithelialization. Dimensions are documented elsewhere. There is minimal bioburden. Necrotic tissue is gone. Hair: general thinning Neuro oriented x3, CN's II-XII intact bilaterally, moves all extremities and no focal motor deficits Sensorium / Orientation: awake, alert, oriented to person, oriented to place and oriented to time Speech: speech normal Psych Appearance: grossly normal and appropriate Attitude: calm Activity / Motor Behavior: appropriate eye contact Speech: normal speech Mood & Affect: euthymic mood Thought Process: normal thought process Thought Content: normal thought content Attention / Concentration: attention grossly intact Debridement Note Debridement Note No debridement was completed: No debridement was completed today Post-Debridement Measurements and Additional Note: Post-Debridement Measurements/Treatment DUYEN - Nurse 1 - General Ulcer Assessment Start: 10/15/22 11:17 Freq: Status: Active Protocol: WC.LOWEXT Activity Type Activity Date Activity User E-sign Co-sign Detail Recorded Client Recorded Date Recorded By Document 10/15/22 11:18 DL [id number] 10/15/22 11:24 DL 10/15/22 11:18 WC - Today's Visit Information Type of service Follow-up Visit (Physician/BLOCKLAYER ) Arrival Mode Wheelchair Transfer Assistance None Patient Identification Verified (Name & Yes ) Patient Requires Transmission-Based No Precautions Finger Stick Blood Sugar(mg/dl) (if 57 indicated): Blood Sugar Stated by Patient Height and Weight Body Mass Index (BMI) 32.9 BMI Classification Obese Vital Signs Temperature (97.8 F-99.1 F) 97.9 F Temperature Source Temporal Pulse Rate (60-100) 74 Pulse Location Monitor Respiratory Rate (12-18) 20 H Respiratory rate source Observation Blood Pressure (90/60-120/80) 152/52 H Blood Pressure Mean 85 Source Monitor History Since Last Visit- (Skip if this is Patient's initial visit) Have you changed medications since your No last visit? Any new allergies or adverse reactions No Had a fall/change in ADL's that may No increase risk of falls Signs or symptoms of abuse and/or No neglect since last visit Have you been in the hospital since your No last visit? Has dressing in place as prescribed Yes Has compression in place as prescribed N/A Has offloadiing in place as prescribed Yes Experienced any changes in pain level or No management Pain Scale: 0-10 Numeric Is Patient Pain Free? Yes - Nurse 1 - General Ulcer Measurement Start: 10/15/22 11:17 Freq: Status: Active Protocol: Activity Type Activity Date Activity User E-sign Co-sign Detail Recorded Client Recorded Date Recorded By Document 10/15/22 11:18 DL [id number] 10/15/22 11:24 DL 10/15/22 11:18 Wound Center Nurse 1 #1 right mid-back -Current Size (cm) - Length 0.1 -Current Size (cm) - Width 0.1 -Current Size (cm) - Depth 0.1 -Total Square Cm 0.01 -Photo Taken No -Exudate Amt None Present -Wound Margin Flat & Intact -Granulation Amt Large (67-100%) -Granulation Quality Rowan -Necrosis Amt None Present (0 %) -Structure Exposed N/A -Texture (Ericka-wound Skin Appearance) Scarring -Moisture (Ericka-wound Skin Appearance) No Abnormality -Color (Ericka-wound Skin Appearance) No Abnormality -Temperature (Ericka-wound Skin No Abnormality Appearance) (Pt Warm) -Tenderness on Palpation (Ericka-wound No Skin Appearance) -Ulcer Cleansing Rinsed/ Irrigated with Saline -Foul Odor after Cleansing No Assessment/Plan Assessment/Plan (1) Pressure ulcer of back: CODE(S): L89.109 - Pressure ulcer of unspecified part of back, unspecified stage QUALIFIERS: Pressure injury stage: stage 1 Qualified Code(s): L89.101 - Pressure ulcer of unspecified part of back, stage 1 (2) Kyphoscoliosis: CODE(S): M41.9 - Scoliosis, unspecified (3) Debility: CODE(S): R53.81 - Other malaise (4) Failure to thrive: QUALIFIERS: Failure to thrive age range: in adult Qualified Code(s): R62.7 - Adult failure to thrive (5) Essential hypertension: CODE(S): I10 - Essential (primary) hypertension (6) Gastroesophageal reflux disease: CODE(S): K21.9 - Gastro-esophageal reflux disease without esophagitis (7) Hypothyroidism: CODE(S): E03.9 - Hypothyroidism, unspecified (8) Diabetes mellitus: CODE(S): E11.9 - Type 2 diabetes mellitus without complications (9) Vitamin D deficiency: CODE(S): E55.9 - Vitamin D deficiency, unspecified (10) Chronic diastolic congestive heart failure: CODE(S): I50.32 - Chronic diastolic (congestive) heart failure (11) Chronic renal disease, stage III: CODE(S): N18.30 - Chronic kidney disease, stage 3 unspecified (12) Heart block AV first degree: CODE(S): I44.0 - Atrioventricular block, first degree (13) Gout: CODE(S): M10.9 - Gout, unspecified (14) Osteoporosis: CODE(S): M81.0 - Age-related osteoporosis without current pathological fracture (15) Premature atrial contractions: CODE(S): I49.1 - Atrial premature depolarization (16) PVCs (premature ventricular contractions): CODE(S): I49.3 - Ventricular premature depolarization (17) History of appendectomy: CODE(S): Z90.49 - Acquired absence of other specified parts of digestive tract (18) History of back surgery: CODE(S): Z98.890 - Other specified postprocedural states (19) History of cholecystectomy: CODE(S): Z90.49 - Acquired absence of other specified parts of digestive tract (20) History of tonsillectomy: CODE(S): Z90.89 - Acquired absence of other organs PLAN: Plan This is an 87-year-old female with a stage I pressure ulceration on the right posterior flank. The patient has been encouraged to optimize her nutritional intake. It is highly suspected that the wound on the patient's right posterior flank is related to pressure phenomenon. The patient has a history of spinal jana insertion for treatment of kyphoscoliosis. Nonetheless, she remains extremely kyphotic, and sits in a chair or wheelchair throughout the day. She is nonambulatory, and she does not and will not sleep in a bed. It appears as though the patient is experiencing pressure phenomenon from her chair against the right posterior flank, the source of her presenting wound. At previous visits, she was advised to implement offloading measures. It appears as though there has been some degree of noncompliance, but her most recent caregiver appears to be more diligent in reminding the patient to implement offloading measures. She has recently consented to the use of a pillow/cushion for offloading purposes. We have once again discussed offloading measures in detail. The means by which this can be achieved have been thoroughly explained. There is suspicion that she is leaning to the right, perhaps against an armrest or other firm portion of her chair, resulting in undesired pressure to the area involved. There has been significant improvement within the last several weeks. We are to continue the use of collagen hydrogel and a foam pad, which will be applied on a daily basis. The pressure ulceration is much improved, and now nearly healed. The patient and her caregiver have been instructed in the appropriate means of application. She has been advised to elevate her lower extremities to heart level, or higher, given that swelling and edema are noted in her lower extremities bilaterally. She also wears compression stockings on a daily basis. The patient is to return in 2 weeks for reassessment. Total time: 25 minutes
[2022-10-29 11:03] VITALS: BP 145/58; PULSE 81; RESP 16; TEMP 36.5; BMI 32.9
--- NOTE | 2022-10-29 12:44 | PCM.WC.HP ---
History of Present Illness Date of Service: 10/29/22 Chief Complaint: Right posterior flank wound History of Wound: This is an 87-year-old female with a pressure wound on the right posterior flank. It has been present for a lengthy period of time. The patient has recently been under the care of [facility] Due to concerns regarding wound infection, cultures were recently performed, which were positive for Enterococcus faecalis and Staphylococcus epidermidis. The patient has recently completed a 10-day course of linezolid 600 mg po twice daily. The patient has been evaluated with regard to her wound by her primary care physician, Dr. Henson, Dr. Suze Ferrara, flotation tank operator, and a surgeon at the [facility]. According to the patient's primary caregiver, who is not related, none of her [facility] providers or Dr. Ferrara have provided clarity as to the source of the patient's wound. The [facility] surgeon indicated it was a lipoma, and Dr. Ferrara suggested it to be scar tissue. Records from [facility] include a dermatopathology report from March 26, 2022, which revealed no evidence of malignancy. The patient was using Karly and Adaptic topically, applied on a daily basis. The patient is nonambulatory, spending a large portion of each day sitting in 1 of 2 chairs at her home. She also sleeps in a chair. Patient is profoundly kyphotic. [facility] Medical History Acute GI bleeding Chronic renal disease, stage 3, moderately decreased glomerular filtration rate (GFR) between 30-59 mL/min/1.73 square meter Chronic renal disease, stage III Colitis Colitis Congestive heart failure (CHF) Depressed Depression Diabetes mellitus Diastolic CHF, chronic Essential hypertension First degree AV block GERD (gastroesophageal reflux disease) GI bleed Gout Gout Gout Heart block AV first degree History of GI bleed Hypothyroidism Kidney disease Kyphoscoliosis Non-smoker Osteoporosis Osteoporosis Premature atrial contractions Premature atrial contractions Premature supraventricular beats Premature ventricular contraction Pressure ulcer of back PVCs (premature ventricular contractions) Type 2 diabetes mellitus Ventricular ectopy Home Medications allopurinol 100 mg tablet 100 mg PO DAILYCM gout 12/04/13 [History Last Taken 07/04/21] folic acid 1 mg tablet 1 mg PO BIDCM supplement 12/04/13 [History Last Taken 07/04/21] biotin 10,000 mcg capsule 5,000 mcg PO DAILY supplement 03/10/16 [History Last Taken 07/04/21] montelukast 10 mg tablet 10 mg PO QHS allergies 03/10/16 [History Last Taken 07/03/21] docusate sodium 100 mg capsule 100 mg PO BID stool softener 03/15/16 [History Last Taken 07/04/21] rqwmbnyj-tbaa-haoc 8 mg-folic 400 mcg-K 50 mcg-lutein 300 mcg tablet 1 ea PO DAILY vitamin 10/17/16 [History Last Taken 07/04/21] cholecalciferol (vitamin D3) 1,250 mcg (50,000 unit) capsule 50,000 unit PO QMONTH supplement 05/25/18 [History Last Taken 06/05/21] insulin aspart U-100 100 unit/mL (3 mL) subcutaneous pen 4 unit subcut 0700,1200,1700 insulin 05/25/18 [History Last Taken 07/04/21] insulin glargine 100 unit/mL (3 mL) subcutaneous pen 6 unit subcut QHS insulin 05/26/19 [History Last Taken 07/04/21] levothyroxine 112 mcg tablet 100 mcg PO DAILY thyroid 12/25/19 [History Last Taken 07/04/21] cimetidine 400 mg tablet 800 mg PO DAILY PRN upset stomach 07/04/21 [History Last Taken Unknown] fluticasone propionate 50 mcg/actuation nasal spray,suspension 2 spray NASAL DAILY allergies 07/06/21 [History Last Taken Unknown] furosemide 40 mg tablet 40 mg PO DAILY water pill 07/06/21 [History Last Taken Unknown] melatonin 3 mg tablet 3 mg PO QHS PRN PRN Insomnia #0 tabs 07/06/21 [Rx Last Taken Unknown] nystatin 100,000 unit/gram topical powder (Nyamyc) 1 applic topical BID skin protectant 07/06/21 [History Last Taken Unknown] acetaminophen 500 mg tablet 1,000 mg (2 x 500 mg) PO Q6H PRN PRN Pain Score 1-5 #0 tabs 07/19/21 [Rx Last Taken Unknown] cholecalciferol (vitamin D3) 25 mcg (1,000 unit) tablet 25 mcg PO 0800 #0 tabs 07/19/21 [Rx Last Taken Unknown] losartan 25 mg tablet 25 mg PO DAILY #0 tabs 07/19/21 [Rx Last Taken Unknown] ondansetron 4 mg disintegrating tablet 4 mg PO Q8H PRN nausea and vomiting 30 days #90 tabs 07/19/21 [Rx Last Taken Unknown] oxycodone 5 mg tablet 10 mg (2 x 5 mg) PO Q8H PRN PRN PAIN 1-10 3 days #18 tabs 07/19/21 [Rx Last Taken Unknown] pantoprazole 40 mg tablet,delayed release 40 mg PO DAILY 30 days #30 tabs 07/19/21 [Rx Last Taken Unknown] amlodipine 10 mg tablet (Norvasc) 5 mg PO DAILY 04/25/22 [History Last Taken Unknown] aspirin 81 mg tablet,delayed release (Adult Low Dose Aspirin) 81 mg PO DAILY 04/25/22 [History Last Taken Unknown] meclizine 12.5 mg tablet 12.5 mg PO BID PRN Nausea 04/25/22 [History Last Taken Unknown] polysaccharide iron complex 150 mg iron capsule (iFerex 150) 150 mg PO .qod 04/25/22 [History Last Taken Unknown] Allergy/AdvReac Type Severity Reaction Status Date / Time shellfish derived Allergy Severe Anaphylaxis Verified 04/25/22 11:11 hydrochlorothiazide Allergy Unknown Verified 04/25/22 11:11 [From Prinzide] Iodinated Contrast Media Allergy Anaphylaxis Verified 04/25/22 11:11 [Iodinated Contrast Media - IV Dye] lisinopril [From Prinzide] Allergy Unknown Verified 04/25/22 11:11 neomycin [Neomycin] Allergy Unknown Verified 04/25/22 11:11 guaifenesin [From Mucinex] AdvReac Severe PT UNSURE Verified 04/25/22 11:11 OF REACTION Family History Father CVA (cerebral vascular accident) Myocardial infarction Heart disease Mother Cancer Brother Pacemaker Surgical History History of appendectomy History of appendectomy History of back surgery History of back surgery History of cholecystectomy History of cholecystectomy History of tonsillectomy History of tonsillectomy Social History household members: none Smoking Status: Never smoker alcohol intake: never caffeine: Yes Type: coffee Number of servings: 4 Vital Signs Vital Signs Vital Signs: 10/29/22 11:03 Temperature 97.7 F L Temperature Source Temporal Pulse Rate 81 Respiratory Rate 16 Blood Pressure 145/58 H Blood Pressure Mean 87 Blood Pressure Source Monitor Blood Pressure Position Sitting Blood Pressure Location Right Forearm Oxygen Delivery Method Room Air Weight Weight: 180 lb Body Mass Index (BMI) 32.9 Physical Exam Const alert, oriented x3, no apparent distress and well nourished Constitutional Narrative: The patient appears frail and elderly. A profoundly kyphotic posture is noted. The patient has kyphoscoliosis. General Appearance: cooperative, comfortable, well kempt and well developed Orientation / Consciousness: awake, oriented to person, oriented to place and oriented to time HEENT normocephalic and head/scalp atraumatic Head and Scalp: normal to inspection, normocephalic, atraumatic and other Other Details: Alopecia is noted. Face and Sinus: normal facial exam External Ear: external ears normal Eyes PERRL and EOMs intact bilaterally General Eye: normal appearance of both eyes Resp normal respiratory effort, normal air movement, no retractions and no use of accessory muscles Effort and Inspection: able to speak in complete sentences Extremity no calf tenderness Extremity Narrative: Bilateral lower extremity swelling and edema are noted. General Extremity: Negative for clubbing or cyanosis Skin Wound Narrative: The superficial wound on the patient's right posterior flank appears to be healed and epithelialized. There is no sign of infection or cellulitis. Hair: general thinning Neuro oriented x3, CN's II-XII intact bilaterally, moves all extremities and no focal motor deficits Sensorium / Orientation: awake, alert, oriented to person, oriented to place and oriented to time Speech: speech normal Psych Appearance: grossly normal and appropriate Attitude: calm Activity / Motor Behavior: appropriate eye contact Speech: normal speech Mood & Affect: euthymic mood Thought Process: normal thought process Thought Content: normal thought content Attention / Concentration: attention grossly intact Debridement Note Debridement Note No debridement was completed: No debridement was completed today (The patient's wound is healed and epithelialized.) Post-Debridement Measurements and Additional Note: Post-Debridement Measurements/Treatment DUYEN - Nurse 1 - General Ulcer Assessment Start: 10/15/22 11:17 Freq: Status: Active Protocol: WC.LOWEXT Activity Type Activity Date Activity User E-sign Co-sign Detail Recorded Client Recorded Date Recorded By Document 10/15/22 11:18 DL [id number] 10/15/22 11:24 DL Document 10/29/22 11:03 MW [id number] 10/29/22 11:07 MW 10/15/22 10/29/22 11:18 11:03 WC - Today's Visit Information Type of service Follow-up Visit Follow-up Visit (Physician/ENVIRONMENTAL RESEARCH SCIENTIST (Physician/ENVIRONMENTAL RESEARCH SCIENTIST ) ) Arrival Mode Wheelchair Wheelchair Transfer Assistance None None Accompanied by caregiver Patient Identification Verified (Name & Yes Yes ) Patient Requires Transmission-Based No No Precautions Safety Precautions NA Finger Stick Blood Sugar(mg/dl) (if 57 indicated): Blood Sugar Stated by Patient Height and Weight Body Mass Index (BMI) 32.9 32.9 BMI Classification Obese Obese Vital Signs Temperature (97.8 F-99.1 F) 97.9 F 97.7 F L Temperature Source Temporal Temporal Pulse Rate (60-100) 74 81 Pulse Location Monitor Monitor Respiratory Rate (12-18) 20 H 16 Respiratory rate source Observation Observation Oxygen Delivery Method Room Air Blood Pressure (90/60-120/80) 152/52 H 145/58 H Blood Pressure Mean 85 87 Source Monitor Monitor Position Sitting Blood Pressure Location Right Forearm History Since Last Visit- (Skip if this is Patient's initial visit) Have you changed medications since your No No last visit? Any new allergies or adverse reactions No No Had a fall/change in ADL's that may No No increase risk of falls Signs or symptoms of abuse and/or No No neglect since last visit Have you been in the hospital since your No No last visit? Has dressing in place as prescribed Yes Yes Has compression in place as prescribed N/A N/A Has offloadiing in place as prescribed Yes N/A Experienced any changes in pain level or No No management Left Footwear Regular Shoe Right Footwear Regular Shoe Pain Scale: 0-10 Numeric Is Patient Pain Free? Yes Yes - Nurse 1 - General Ulcer Measurement Start: 10/15/22 11:17 Freq: Status: Active Protocol: Activity Type Activity Date Activity User E-sign Co-sign Detail Recorded Client Recorded Date Recorded By Document 10/15/22 11:18 DL [id number] 10/15/22 11:24 DL Document 10/29/22 11:03 MW [id number] 10/29/22 11:07 MW 10/15/22 10/29/22 11:18 11:03 Wound Center Nurse 1 #1 right mid-back -Combined with other wound No -Current Size (cm) - Length 0.1 0.1 -Current Size (cm) - Width 0.1 0.1 -Current Size (cm) - Depth 0.1 0.1 -Total Square Cm 0.01 0.01 -Photo Taken No No -Epithelialization Large 67-100% -Tunneling No -Undermining/Tunneling No -Circular Undermining No -Exudate Amt None Present None Present -Wound Margin Flat & Intact Flat & Intact -Granulation Amt Large (67-100%) None Present (0 %) -Granulation Quality [place] N/A -Slough/Fibrin Yes -Necrosis Amt None Present (0 Small (1-33%) %) -Necrotic Tissue Type Adherent Slough -Structure Exposed N/A N/A -Texture (Ericka-wound Skin Appearance) Scarring Assessed, Scarring -Moisture (Ericka-wound Skin Appearance) No Abnormality No Abnormality, Assessed -Color (Ericka-wound Skin Appearance) No Abnormality No Abnormality, Assessed -Temperature (Ericka-wound Skin No Abnormality No Abnormality Appearance) (Pt Warm) (Pt Warm) -Tenderness on Palpation (Ericka-wound No Skin Appearance) -Ulcer Cleansing Rinsed/ Rinsed/ Irrigated with Irrigated with Saline Saline -Foul Odor after Cleansing No No -Anesthetic Used 5% Lidocaine Gel Lower Limb Edema Present No WC - Nurse 2 - General Ulcer CM Notes Start: 10/15/22 11:17 Freq: Status: Active Protocol: Activity Type Activity Date Activity User E-sign Co-sign Detail Recorded Client Recorded Date Recorded By Document 10/29/22 12:04 PL [id number] 10/29/22 12:04 PL 10/29/22 12:04 Wound Center Nurse 2 #1 right mid-back -Procedure Performed No -Wound/Ulcer Outcome Healed- Epithelialized Pain Scale: 0-10 Numeric Is Patient Pain Free? Yes WC - Nurse 3 - General Ulcer D/C NN Start: 10/15/22 11:17 Freq: Status: Active Protocol: Activity Type Activity Date Activity User E-sign Co-sign Detail Recorded Client Recorded Date Recorded By Document 10/29/22 11:27 [id number] 10/29/22 11:28 MW 10/29/22 11:27 Wound Care Center Nurse 3 #1 right mid-back -Primary Dressing Applied Mepilex Border -Primary Dressing Covered/Secured with Dry Gauze -Mepilex Border 1 Treatment Response Procedure Tolerated Well Pain Scale: 0-10 Numeric Is Patient Pain Free? Yes WC - Visit Discharge Discharge Condition Stable Ambulatory Status Wheelchair Transportation Private Auto Accompanied by caregiver Medication Reconcilliation completed & No provided to patient/care provider Clinical Summary of Care Provided Yes Assessment/Plan Assessment/Plan (1) Pressure ulcer of back: CODE(S): L89.109 - Pressure ulcer of unspecified part of back, unspecified stage QUALIFIERS: Pressure injury stage: stage 1 Qualified Code(s): L89.101 - Pressure ulcer of unspecified part of back, stage 1 (2) Kyphoscoliosis: CODE(S): M41.9 - Scoliosis, unspecified (3) Debility: CODE(S): R53.81 - Other malaise (4) Failure to thrive: QUALIFIERS: Failure to thrive age range: in adult Qualified Code(s): R62.7 - Adult failure to thrive (5) Essential hypertension: CODE(S): I10 - Essential (primary) hypertension (6) Gastroesophageal reflux disease: CODE(S): K21.9 - Gastro-esophageal reflux disease without esophagitis (7) Hypothyroidism: CODE(S): E03.9 - Hypothyroidism, unspecified (8) Diabetes mellitus: CODE(S): E11.9 - Type 2 diabetes mellitus without complications (9) Vitamin D deficiency: CODE(S): E55.9 - Vitamin D deficiency, unspecified (10) Chronic diastolic congestive heart failure: CODE(S): I50.32 - Chronic diastolic (congestive) heart failure (11) Chronic renal disease, stage III: CODE(S): N18.30 - Chronic kidney disease, stage 3 unspecified (12) Heart block AV first degree: CODE(S): I44.0 - Atrioventricular block, first degree (13) Gout: CODE(S): M10.9 - Gout, unspecified (14) Osteoporosis: CODE(S): M81.0 - Age-related osteoporosis without current pathological fracture (15) Premature atrial contractions: CODE(S): I49.1 - Atrial premature depolarization (16) PVCs (premature ventricular contractions): CODE(S): I49.3 - Ventricular premature depolarization (17) History of appendectomy: CODE(S): Z90.49 - Acquired absence of other specified parts of digestive tract (18) History of back surgery: CODE(S): Z98.890 - Other specified postprocedural states (19) History of cholecystectomy: CODE(S): Z90.49 - Acquired absence of other specified parts of digestive tract (20) History of tonsillectomy: CODE(S): Z90.89 - Acquired absence of other organs PLAN: Plan This is an 87-year-old female with a stage I pressure ulceration on the right posterior flank. The patient has been encouraged to optimize her nutritional intake. It is highly suspected that the wound on the patient's right posterior flank is related to pressure phenomenon. The patient has a history of spinal jana insertion for treatment of kyphoscoliosis. Nonetheless, she remains extremely kyphotic, and sits in a chair or wheelchair throughout the day. She is nonambulatory, and she does not and will not sleep in a bed. It appears as though the patient is experiencing pressure phenomenon from her chair against the right posterior flank, the source of her presenting wound. At previous visits, she was advised to implement offloading measures. It appears as though there has been some degree of noncompliance, but her most recent caregiver appears to be more diligent in reminding the patient to implement offloading measures. She has recently consented to the use of a pillow/cushion for offloading purposes. We have once again discussed offloading measures in detail. The means by which this can be achieved have been thoroughly explained. There is suspicion that she is leaning to the right, perhaps against an armrest or other firm portion of her chair, resulting in undesired pressure to the area involved. The right posterior flank pressure ulceration is now healed and epithelialized. Therefore, the patient is to be discharged, and will follow-up henceforth on an as-needed basis. She has been counseled to continue offloading measures to prevent a recurrence of her pressure ulcer. Total time: 22 minutes
== END 2022-11-04 23:59 | disposition home or self-care (01) ==
LOC: WC 11:00
PROVIDERS: PCP Family Medicine; Visit Provider Surgery
DX: L89.893 Pressure ulcer of other site, stage 3 (principal); I13.0 Hypertensive heart and chronic kidney disease with heart failure and stage 1 through stage 4 chronic kidney disease, or unspecified chronic kidney disease; I50.32 Chronic diastolic (congestive) heart failure; E11.22 Type 2 diabetes mellitus with diabetic chronic kidney disease; Z79.4 Long term (current) use of insulin; N18.30 Chronic kidney disease, stage 3 unspecified; M10.9 Gout, unspecified; I49.1 Atrial premature depolarization; E03.9 Hypothyroidism, unspecified; I49.3 Ventricular premature depolarization; M81.0 Age-related osteoporosis without current pathological fracture; M41.9 Scoliosis, unspecified; E55.9 Vitamin D deficiency, unspecified; K21.9 Gastro-esophageal reflux disease without esophagitis; R62.7 Adult failure to thrive; Z79.82 Long term (current) use of aspirin; Z79.890 Hormone replacement therapy; Z79.899 Other long term (current) drug therapy; Z68.32 Body mass index [BMI] 32.0-32.9, adult
CPT/HCPCS: 99213; G0463

== ENCOUNTER → 2022-12-12 | Outpatient (CLI) | payer MEDICARE, SELFPAY ==
[2022-12-12 14:11] LABS: Anion Gap 5 (5-15); BUN 39 mg/dL (7-18); BUN/Creat Ratio 30.2 RATIO (10-20); Calcium,Total 9.5 mg/dL (8.5-10.1); Chloride 104 mmol/L (98-107); Creatinine, Serum 1.29 mg/dL (0.55-1.02); EST Glomerular Filtration Rate 41 mL/min (>60); Est Glom Filt Rate - Afr Amer 50 mL/min (>60); Glucose 131 mg/dL (74-106); Potassium 4.6 mmol/L (3.5-5.1); Sodium Level 137 mmol/L (136-145)
== END | disposition home or self-care (01) ==
LOC: LAB 13:06
PROVIDERS: PCP Family Medicine; Referring Provider Nurse Practitioner Family; Visit Provider Nurse Practitioner Family
DX: I12.9 Hypertensive chronic kidney disease with stage 1 through stage 4 chronic kidney disease, or unspecified chronic kidney disease (principal); I50.32 Chronic diastolic (congestive) heart failure; N18.30 Chronic kidney disease, stage 3 unspecified; I49.3 Ventricular premature depolarization; I49.1 Atrial premature depolarization
CPT/HCPCS: 36415; 80048

== ENCOUNTER 2023-03-01 11:34 | Emergency (ER) | payer MEDICARE, SELFPAY ==
[2023-03-01] VITALS (10 sets, daily range): BP systolic 117–164; BP diastolic 49–89; PULSE 80–98; RESP 16–23; TEMP 36.3–36.8; O2SAT 88–100; BMI 32.5
--- NOTE | 2023-03-01 11:47 | EKG12_ITS ---
Test Reason : SOB Blood Pressure : / mmHG Vent. Rate : 095 BPM Atrial Rate : 095 BPM P-R Int : 218 ms QRS Dur : 096 ms QT Int : 366 ms P-R-T Axes : 079 -46 082 degrees QTc Int : 459 ms Sinus rhythm with 1st degree A-V block Left anterior fascicular block Moderate voltage criteria for LVH, may be normal variant ( R in aVL , Elliot product ) Abnormal ECG Confirmed by LOUIS COLMENARES, MELISSA ([id number]), film or videotape editor YOU ENNIS ([id number]) on 03/03/2023 12:05:03 PM Referred By: ADONIS/AVELINA Confirmed By:MELISSA MYERS MD
--- NOTE | 2023-03-01 11:49 | EX.ED.DYSGE1 ---
HPI <SONJA Woodward - Last Filed: 03/01/23 15:41> History of Present Illness Chief Complaint: Shortness of Breath Narrative Narrative: 88-year-old female with PMH of HTN, DM2, CKD, CHF has had a cold for a week and over the last few days the productive cough worsened and she felt short of breath. She had an outpatient chest x-ray showing pneumonia and was prescribed doxycycline, albuterol inhaler, and Tessalon Perles. She took 2 doses of the antibiotic and this morning called EMS because she felt more short of breath today after using the albuterol inhaler. She lives with her daughter and has a full-time caregiver when she is at work. She has no known history of COPD and does not smoke or wear oxygen. She is on Lasix 40 mg once a day but has not taken it the last 3 days because family was in town and she did not want to urinate frequently. She does have slight increased leg swelling. No fever or chills. No chest pain. PFS <SONJA Woodward - Last Filed: 03/01/23 15:41> [facility], [facility] Medical History (Updated 03/01/23 @ 15:29 by SONJA Woodward) Chronic renal disease, stage 3, moderately decreased glomerular filtration rate (GFR) between 30-59 mL/min/1.73 square meter Chronic renal disease, stage III Colitis Depression Diabetes mellitus Diastolic CHF, chronic Essential hypertension First degree AV block GERD (gastroesophageal reflux disease) Gout History of GI bleed Hypothyroidism Kidney disease Kyphoscoliosis Non-smoker Osteoporosis Premature atrial contractions Premature ventricular contraction Pressure ulcer of back Type 2 diabetes mellitus Ventricular ectopy Home Medications allopurinol 100 mg tablet 100 mg PO DAILY gout 12/04/13 [History Last Taken 07/04/21] folic acid 1 mg tablet 1 mg PO BID supplement 12/04/13 [History Last Taken 07/04/21] biotin 10,000 mcg capsule 5,000 mcg PO DAILY supplement 03/10/16 [History Last Taken 07/04/21] montelukast 10 mg tablet 10 mg PO QHS allergies 03/10/16 [History Last Taken 07/03/21] docusate sodium 100 mg capsule 100 mg PO BID stool softener 03/15/16 [History Last Taken 07/04/21] lixrirzp-nckw-padj 8 mg-folic 400 mcg-K 50 mcg-lutein 300 mcg tablet 1 ea PO DAILY vitamin 10/17/16 [History Last Taken 07/04/21] cholecalciferol (vitamin D3) 1,250 mcg (50,000 unit) capsule 50,000 unit PO QMONTH supplement 05/25/18 [History Last Taken 06/05/21] insulin aspart U-100 100 unit/mL (3 mL) subcutaneous pen 4 unit subcut 0700,1200,1700 insulin 05/25/18 [History Last Taken 07/04/21] cimetidine 400 mg tablet 400 mg PO DAILY PRN upset stomach 07/04/21 [History Last Taken Unknown] furosemide 40 mg tablet 40 mg PO DAILY water pill 07/06/21 [History Last Taken Unknown] acetaminophen 500 mg tablet 1,000 mg (2 x 500 mg) PO Q6H PRN PRN Pain Score 1-5 #0 tabs 07/19/21 [Rx Last Taken Unknown] ondansetron 4 mg disintegrating tablet 4 mg PO Q8H PRN nausea and vomiting 30 days #90 tabs 07/19/21 [Rx Last Taken Unknown] aspirin 81 mg tablet,delayed release (Adult Low Dose Aspirin) 81 mg PO BID 04/25/22 [History Last Taken Unknown] meclizine 12.5 mg tablet 12.5 mg PO BID PRN Nausea 04/25/22 [History Last Taken Unknown] polysaccharide iron complex 150 mg iron capsule (iFerex 150) 150 mg PO .qod 04/25/22 [History Last Taken Unknown] insulin glargine 100 unit/mL (3 mL) subcutaneous pen 4 unit subcut QHS insulin 11/22/22 [History Last Taken Unknown] levothyroxine 100 mcg tablet (Synthroid) 100 mcg PO DAILY 11/22/22 [History Last Taken Unknown] nystatin 100,000 unit/gram topical powder (Nyamyc) 1 applic topical BID PRN skin protectant 11/22/22 [History Last Taken Unknown] oxycodone-acetaminophen 10 mg-325 mg tablet 1 tab PO Q8H PRN pain 11/22/22 [History Last Taken Unknown] losartan 50 mg tablet 50 mg PO DAILY #90 tabs 11/28/22 [Rx Last Taken Unknown] albuterol sulfate 2.5 mg/3 mL (0.083 %) solution for nebulization 2.5 mg continuous nebulization Q4H PRN shortness of breath or wheezing 03/01/23 [History Last Taken Unknown] amlodipine 10 mg tablet 10 mg PO DAILY 03/01/23 [History Last Taken Unknown] azelastine 137 mcg (0.1 %) nasal spray aerosol 2 spray intranasal BID 03/01/23 [History Last Taken Unknown] benzonatate 100 mg capsule 100 mg PO TID PRN cough 03/01/23 [History Last Taken Unknown] doxycycline hyclate 100 mg capsule 100 mg PO BID 03/01/23 [History Last Taken Unknown] ergocalciferol (vitamin D2) 1,250 mcg (50,000 unit) capsule (Drisdol) 50,000 unit PO QMONTH 03/01/23 [History Last Taken Unknown] polyethylene glycol 3350 17 gram oral powder packet (ClearLax) 17 g PO BID PRN constipation 03/01/23 [History Last Taken Unknown] sennosides 8.6 mg tablet (Sen-O-Tab) 8.6 mg PO BID PRN constipation 03/01/23 [History Last Taken Unknown] Allergy/AdvReac Type Severity Reaction Status Date / Time shellfish derived Allergy Severe Anaphylaxis Verified 03/01/23 11:39 hydrochlorothiazide Allergy Unknown Verified 03/01/23 11:39 [From Prinzide] Iodinated Contrast Media Allergy Anaphylaxis Verified 03/01/23 11:39 [Iodinated Contrast Media - IV Dye] lisinopril [From Prinzide] Allergy Unknown Verified 03/01/23 11:39 neomycin [Neomycin] Allergy Unknown Verified 03/01/23 11:39 guaifenesin [From Mucinex] AdvReac Severe PT UNSURE Verified 03/01/23 11:39 OF REACTION FABY Inhibitors AdvReac Mild Shortness Verified 03/01/23 11:40 of breath Family History Father CVA (cerebral vascular accident) Myocardial infarction Heart disease Mother Cancer Brother Pacemaker Surgical History History of appendectomy History of appendectomy History of back surgery History of back surgery History of cholecystectomy History of cholecystectomy History of tonsillectomy History of tonsillectomy Social History household members: none Smoking Status: Never smoker alcohol intake: never caffeine: Yes Type: coffee Number of servings: 4 ROS <SONJA Woodward - Last Filed: 03/01/23 15:41> ROS ED ROS Narrative Constitutional: Negative for fever, chills, malaise. ENT: Positive for rhinorrhea. CVS: Negative for palpitations, chest pain. Respiratory: Positive for shortness of breath, cough. GI: Negative for abdominal pain, nausea, vomiting, diarrhea. Neuro: Negative for headache. EXAM <SONJA Woodward - Last Filed: 03/01/23 15:41> Physical Exam Narrative Exam Narrative: CONST: Patient sitting in no acute distress. EYES: Normal inspection. NECK: Normal inspection. RESP: Patient groaning with each breath but not stridorous or wheezing, answers questions, bibasilar crackles. CVS: Regular rate and rhythm, no murmur, no gallop. ABD: Soft and nontender, no guarding or rebound, nondistended. SKIN: Color normal, no rash, warm, dry, intact. EXTREMITIES: Normal appearance, 2+ pitting edema to mid shins. NEURO: Awake and alert, answering questions appropriately, moving all extremities. PSYCH: Normal affect. Const Vital Signs: 03/01/23 11:34 03/01/23 11:38 03/01/23 11:40 Temperature 97.3 F L 97.3 F L Temperature Source Temporal Temporal Pulse Rate 90 82 Respiratory Rate 16 17 Respiratory Effort Short of Breath Labored Respiratory Depth Shallow Respiratory Pattern Tachypnea Blood Pressure 164/60 H 164/60 H Blood Pressure Mean 94 94 Pulse Ox 100 92 Oxygen Delivery Method Room Air Room Air Room Air Oxygen Flow Rate (L/min) 03/01/23 12:19 03/01/23 12:19 03/01/23 12:36 Temperature Temperature Source Pulse Rate 82 98 Respiratory Rate 16 16 Respiratory Effort Respiratory Depth Respiratory Pattern Blood Pressure 155/89 H Blood Pressure Mean 111 Pulse Ox 97 97 Oxygen Delivery Method Room Air Room Air Oxygen Flow Rate (L/min) 03/01/23 13:24 03/01/23 14:34 03/01/23 14:49 Temperature 98.2 F Temperature Source Oral Pulse Rate 80 94 Respiratory Rate 16 16 Respiratory Effort Respiratory Depth Respiratory Pattern Blood Pressure 121/49 H 117/88 H Blood Pressure Mean 73 97 Pulse Ox 96 95 88 Oxygen Delivery Method Room Air Room Air Room Air Oxygen Flow Rate (L/min) 03/01/23 14:52 03/01/23 15:39 Temperature Temperature Source Pulse Rate 93 Respiratory Rate 23 H Respiratory Effort Respiratory Depth Respiratory Pattern Blood Pressure 161/70 H Blood Pressure Mean 100 Pulse Ox 97 96 Oxygen Delivery Method Nasal Cannula Oxygen Flow Rate (L/min) 1.5 <Dr. Arron Maher DO - Last Filed: 03/01/23 16:58> Physical Exam Const Vital Signs: 03/01/23 11:34 03/01/23 11:38 03/01/23 11:40 Temperature 97.3 F L 97.3 F L Temperature Source Temporal Temporal Pulse Rate 90 82 Respiratory Rate 16 17 Respiratory Effort Short of Breath Labored Respiratory Depth Shallow Respiratory Pattern Tachypnea Blood Pressure 164/60 H 164/60 H Blood Pressure Mean 94 94 Pulse Ox 100 92 Oxygen Delivery Method Room Air Room Air Room Air Oxygen Flow Rate (L/min) 03/01/23 12:19 03/01/23 12:19 03/01/23 12:36 Temperature Temperature Source Pulse Rate 82 98 Respiratory Rate 16 16 Respiratory Effort Respiratory Depth Respiratory Pattern Blood Pressure 155/89 H Blood Pressure Mean 111 Pulse Ox 97 97 Oxygen Delivery Method Room Air Room Air Oxygen Flow Rate (L/min) 03/01/23 13:24 03/01/23 14:34 03/01/23 14:49 Temperature 98.2 F Temperature Source Oral Pulse Rate 80 94 Respiratory Rate 16 16 Respiratory Effort Respiratory Depth Respiratory Pattern Blood Pressure 121/49 H 117/88 H Blood Pressure Mean 73 97 Pulse Ox 96 95 88 Oxygen Delivery Method Room Air Room Air Room Air Oxygen Flow Rate (L/min) 03/01/23 14:52 03/01/23 15:39 Temperature Temperature Source Pulse Rate 93 Respiratory Rate 23 H Respiratory Effort Respiratory Depth Respiratory Pattern Blood Pressure 161/70 H Blood Pressure Mean 100 Pulse Ox 97 96 Oxygen Delivery Method Nasal Cannula Oxygen Flow Rate (L/min) 1.5 MDM <SONJA Woodward - Last Filed: 03/01/23 15:41> MDM Lab Data Attestation: I reviewed the patient's lab results. Labs: Laboratory Results - last 24 hr 03/01/23 12:11 WBC 7.5 RBC 3.42 L Hgb 10.5 L Hct 32.9 L MCV 96.2 MCH 30.7 MCHC 31.9 L RDW Std Deviation 46.5 H RDW Coeff of Skye 13.1 Plt Count 245 MPV 9.7 Immature Gran % (Auto) 0.300 Neut % (Auto) 57.9 Lymph % (Auto) 20.1 [place] % (Auto) 8.7 Eos % (Auto) 11.9 H Baso % (Auto) 1.1 H Absolute Neuts (auto) 4.3 Absolute Lymphs (auto) 1.50 Nucleated RBC % 0 Sodium 139 Potassium 3.7 Chloride 104 Carbon Dioxide 31.0 Anion Gap 4 L BUN 28 H Creatinine 1.20 H Estim Creat Clear Calc 25.14 Est GFR (MDRD) Af Amer 54 L Est GFR (MDRD) Non-Af 45 L BUN/Creatinine Ratio 23.3 H Glucose 155 H Calcium 9.0 Troponin I High Sens 29 B-Natriuretic Peptide 170.0 H Radiography Diagnostic Testing: Clinical Impression(s) from Imaging Studies Chest X-Ray 03/01/23 12:30 IMPRESSION: 1. Old right upper rib fractures with a pleural-based lobular opacity at the rib fracture site favored to represent chronic pleural thickening or loculated pleural hematoma. Redemonstration of scattered diffuse interstitial scarring/fibrosis similar to the prior study. Otherwise no new infiltrate is seen. 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 Electronically Signed: Bryce Brantley MD at 13:18 EST Reading Location ID and State: / [place] , Service support , Chest CT 03/01/23 13:35 IMPRESSION: 1. Redemonstration of upper old right healed rib fractures with adjacent pleural thickening and scarring. No pleural-based mass is present. No demonstrated pleural effusion. Redemonstration of mild to moderate interstitial thickening/fibrosis scattered throughout both lungs with lower lobe predominance. No focal consolidation or definitive infiltrate is seen on the current study. Electronically Signed: Bryce Brantley MD at 15:20 EST , History gathered from: Patient and family Patient has had 1 week of cough and cold symptoms and a few days of shortness of breath. She is taken 2 doses of doxycycline without improvement. She felt more short of breath immediately after using an albuterol inhaler and presented for evaluation. She appears well and nontoxic. Vital signs are unremarkable. She is 100% on room air. She does seem somewhat anxious and is occasionally groaning with each breath but is not wheezing or stridorous. Lungs are clear. She has 2+ pitting edema from CHF which is slightly worse than baseline per family. Differential includes viral etiology, pneumonia, CHF exacerbation. Labs show normal white count of 7.5, stable hemoglobin at 10.5, normal electrolytes and baseline creatinine of 1.20. Glucose is 155 with normal CO2 and anion gap. BNP is 170. CXR shows no acute findings but notes old right upper rib fractures and a right pleural opacity at that site favored to be chronic pleural thickening. Initially a CTA was ordered to better evaluate the opacity but she has an anaphylactic reaction to IV dye so I ordered a CT chest without contrast. EKG Initial EKG: Attestation: I personally reviewed and interpreted this EKG as follows: Interpretation: Sinus Rhythm and No Acute Injury Pattern Comments: Sinus rhythm with first-degree AV block, 95 bpm Left anterior fascicular block, no STEMI criteria <Dr. Arron Maher, DO - Last Filed: 03/01/23 16:58> [facility] Narrative Medical decision making narrative: I have personally performed a face to face assessment of the patient and have reviewed the VISHNU Note. I performed a substantive portion of the visit including all aspects of the following. My reno findings include: History is 88-year-old female presenting with cough and sudden onset of shortness of breath after using albuterol inhaler. Patient is currently on antibiotics being treated for right upper lobe pneumonia seen on chest x-ray. She used inhaler today and immediately got short of breath. Family reports history of asthma. Patient states she feels better than she did. Exam is patient with a slightly moist cough. Afebrile. Not hypoxic. Lung sounds are otherwise clear. Chronic deformity right shoulder Medical Decison Making there appears to be a mass right upper lobe however when I look at a prior CT I think this is a soft tissue density related to her chronically dislocated shoulder in the axilla. We did obtain her own CT and believe this will worsening superimposed on a chronic pleural thickening from prior rib fractures. I do question whether or not the patient had some anxiety related to the use of albuterol. She has not been using her Lasix over the past 3 days. Would recommend starting Lasix. She can discontinue the albuterol as she is not wheezing. We gave her dose of Lasix here. We talked about anxiety coping mechanisms. At this point patient likely can be discharged home. Given the fact that she is 88 years old and in frail health she is certainly at risk for return but at this point I do not see an advantage over admission. History & Record Review Discussion w/independent historian: EMS personnel, Patient and Family Lab Data Labs: Laboratory Results - last 24 hr 03/01/23 12:11 WBC 7.5 RBC 3.42 L Hgb 10.5 L Hct 32.9 L MCV 96.2 MCH 30.7 MCHC 31.9 L RDW Std Deviation 46.5 H RDW Coeff of Skye 13.1 Plt Count 245 MPV 9.7 Immature Gran % (Auto) 0.300 Neut % (Auto) 57.9 Lymph % (Auto) 20.1 [place] % (Auto) 8.7 Eos % (Auto) 11.9 H Baso % (Auto) 1.1 H Absolute Neuts (auto) 4.3 Absolute Lymphs (auto) 1.50 Nucleated RBC % 0 Sodium 139 Potassium 3.7 Chloride 104 Carbon Dioxide 31.0 Anion Gap 4 L BUN 28 H Creatinine 1.20 H Estim Creat Clear Calc 25.14 Est GFR (MDRD) Af Amer 54 L Est GFR (MDRD) Non-Af 45 L BUN/Creatinine Ratio 23.3 H Glucose 155 H Calcium 9.0 Troponin I High Sens 29 B-Natriuretic Peptide 170.0 H Radiography Diagnostic Testing: Clinical Impression(s) from Imaging Studies Chest X-Ray 03/01/23 12:30 IMPRESSION: 1. Old right upper rib fractures with a pleural-based lobular opacity at the rib fracture site favored to represent chronic pleural thickening or loculated pleural hematoma. Redemonstration of scattered diffuse interstitial scarring/fibrosis similar to the prior study. Otherwise no new infiltrate is seen. 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 Electronically Signed: Bryce Brantley MD at 13:18 EST Reading Location ID and State: [id number] , Service support , Chest CT 03/01/23 13:35 IMPRESSION: 1. Redemonstration of upper old right healed rib fractures with adjacent pleural thickening and scarring. No pleural-based mass is present. No demonstrated pleural effusion. Redemonstration of mild to moderate interstitial thickening/fibrosis scattered throughout both lungs with lower lobe predominance. No focal consolidation or definitive infiltrate is seen on the current study. Electronically Signed: Bryce Brantley MD at 15:20 EST , Discharge Plan Triage Chief Complaint: Shortness of Breath ED Midlevel Provider: Cris Robles ED Provider: Arron Maher Dx/Rx/DC Orders Clinical Impression: History of chronic CHF, Hx of medication noncompliance, Acute dyspnea, Upper respiratory infection Instructions: ED Dyspnea, ED URI, Viral, No Abx (Adult) Prescriptions: No Action cholecalciferol (vitamin D3) 50,000 unit capsule 50,000 unit PO QMONTH Hold Instructions: Pt has been DC'd aspirin [Adult Low Dose Aspirin] 81 mg tablet,delayed release (DR/EC) 81 mg PO BID polysaccharide iron complex [iFerex 150] 150 mg iron capsule 150 mg PO .qod meclizine 12.5 mg tablet 12.5 mg PO BID MDD 25mg PRN (Reason: Nausea) levothyroxine [Synthroid] 100 mcg tablet 100 mcg PO DAILY oxycodone-acetaminophen 10-325 mg tablet 1 tab PO Q8H PRN (Reason: pain) Patient Comments: Take 1 tablet by mouth every 8 hours as needed for pain for up to 30 days. allopurinol 100 MG tablet 100 mg PO DAILY Patient Comments: gout folic acid 1 MG tablet 1 mg PO BID Patient Comments: supplement insulin aspart U-100 100 unit/mL insulin pen 4 unit subcut 0700,1200,1700 Patient Comments: diabetes insulin glargine 100 unit/mL (3 mL) insulin pen 4 unit subcut QHS Patient Comments: diabetes biotin 10,000 MCG capsule 5,000 mcg PO DAILY montelukast 10 MG tablet 10 mg PO QHS hfuvweee-ent-zmui-FA-vit K-lut 1 EACH tablet 1 ea PO DAILY cimetidine 400 mg Tablet 400 mg PO DAILY PRN (Reason: upset stomach) furosemide 40 MG tablet 40 mg PO DAILY Patient Comments: diuresis, water pill Rx Instructions: take only 1 40 mg tab daily in the AM acetaminophen 500 mg Tablet 1,000 mg PO Q6H PRN PRN (Reason: Pain Score 1-5) Qty: 0 0RF ondansetron 4 mg tablet,disintegrating 4 mg PO Q8H PRN (Reason: nausea and vomiting) 30 Days Qty: 90 0RF nystatin [Nyamyc] 100,000 unit/gram powder 1 applic topical BID PRN (Reason: skin protectant) Hold Instructions: Pt has been DC'd Protocol: *Topical Application Instructions APPLICATION INSTRUCTIONS: under breast albuterol sulfate 2.5 mg /3 mL (0.083 %) solution for nebulization 2.5 mg continuous nebulization Q4H PRN (Reason: shortness of breath or wheezing) Patient Comments: Use 3 mL via nebulizer every 4 hours as needed for wheezing/shortness of breath. Use over 5-15minutes. amlodipine 10 mg tablet 10 mg PO DAILY benzonatate 100 mg capsule 100 mg PO TID PRN (Reason: cough) Patient Comments: Take 1 capsule by mouth three times a day as needed for up to 10 days. doxycycline hyclate 100 mg capsule 100 mg PO BID Patient Comments: Take 1 capsule by mouth twice daily for 10 days. ergocalciferol (vitamin D2) [Drisdol] 1,250 mcg (50,000 unit) capsule 50,000 unit PO QMONTH Patient Comments: PT TAKES ON FIRST DAY OF MONTH. azelastine 137 mcg (0.1 %) aerosol,spray 2 spray intranasal BID Rx Instructions: administer into each nostril polyethylene glycol 3350 [ClearLax] 17 gram powder in packet 17 g PO BID PRN (Reason: constipation) sennosides [Sen-O-Tab] 8.6 mg tablet 8.6 mg PO BID PRN (Reason: constipation) docusate sodium 100 MG capsule 100 mg PO BID Patient Comments: stool softner losartan 50 mg tablet 50 mg PO DAILY Qty: 90 3RF Primary Care Provider: Garret Henson Referrals: Garret Henson MD [Primary Care Provider] - Activity Restrictions/Additional Instructions: There is no evidence of pneumonia. I suspect you have a viral upper respiratory infection causing the cough and shortness of breath. If the inhaler triggered you to feel more short of breath you can avoid using it. Please start taking the Lasix every day again and follow-up with your primary care doctor. Disposition Disposition: Home, Self Care Discharge Date/Time: 03/01/23 16:03
[2023-03-01] MEDS: Ipratropium/Albuterol Sulfate 3 ML AMPUL.NEB INHALATION (12:13)
[2023-03-01 12:25] LABS: Absolute Neutrophil Count 4.3 X10^3/uL (2.0-7.7); Basophil# 0.08 X10^3/uL; Basophil% 1.1 % (0-1); Eosinophil# 0.89 X10^3/uL; Eosinophils% 11.9 % (0-5); Hematocrit 32.9 % (37-47); Hemoglobin 10.5 g/dL (12.0-15.0); Lymphocyte % 20.1 % (19-41); Mean Corp Hgb Conc 31.9 g/dL (32-36); Mean Corpuscular Hgb 30.7 pg (27.0-32.0); Mean Corpuscular Volume 96.2 fL (81-99); Mean Platelet Vol. 9.7 fl (6.2-12.0); Monocyte# 0.65 X10^3/uL; Monocyte% 8.7 % (0-10); NRBC Flagged by Analyzer 0 % (0-5); Neutrophil # 4.32 X10^3/uL (2.7-7.7); Neutrophil % 57.9 % (47-70); Platelet Count 245 K/mm3 (150-450); RBC Distribution Width CV 13.1 % (11.6-14.6); RBC Distribution Width SD 46.5 fl (35.1-43.9); Red Blood Count 3.42 M/mm3 (4.2-5.4); White Blood Count 7.5 K/mm3 (4.4-11.0)
--- NOTE | 2023-03-01 12:30 | RAD_ITS ---
STUDY: X-RAY CHEST REASON FOR EXAM: Female, 88 years old. cough TECHNIQUE: PA and lateral views of the chest. COMPARISON: December 25, 2019 FINDINGS: Old right upper rib fractures with a pleural-based lobular opacity at the rib fracture site favored to represent chronic pleural thickening or loculated pleural hematoma. Redemonstration of scattered diffuse interstitial scarring/fibrosis similar to the prior study. Otherwise no new infiltrate is seen. 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 Normal size heart. Normal mediastinum and vijaya. Normal visualized pulmonary arteries. There is atherosclerotic calcification of the aortic arch with tortuosity. There are diffuse degenerative changes of the visualized thoracic spine. There is no demonstrated abnormality of the visualized soft tissue structures of the upper abdomen. RAD/Chest PA and Lateral IMPRESSION: 1. Old right upper rib fractures with a pleural-based lobular opacity at the rib fracture site favored to represent chronic pleural thickening or loculated pleural hematoma. Redemonstration of scattered diffuse interstitial scarring/fibrosis similar to the prior study. Otherwise no new infiltrate is seen. 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 Electronically Signed: Bryce Brantley MD at 13:18 EST ,
[2023-03-01 12:42] LABS: Anion Gap 4 (5-15); BUN 28 mg/dL (7-18); BUN/Creat Ratio 23.3 RATIO (10-20); Chloride 104 mmol/L (98-107); EST Glomerular Filtration Rate 45 mL/min (>60); Est Glom Filt Rate - Afr Amer 54 mL/min (>60); Estimated Creatinine Clearance 25.14 ml/min; Glucose 155 mg/dL (74-106); Potassium 3.7 mmol/L (3.5-5.1); Sodium Level 139 mmol/L (136-145); Troponin-I HS 29 pg/mL (3.0-54.0)
--- NOTE | 2023-03-01 13:35 | CT_ITS ---
STUDY: CT CHEST WITHOUT CONTRAST REASON FOR EXAM: Female, 88 years old. cough, abnormal x ray RADIATION DOSAGE (If Supplied By Facility): CTDIvol = ( 19.91 ) mGy, DLP = ( 642.70 ) mGycm TECHNIQUE: Transaxial imaging was performed without the administration of intravenous contrast material. Individualized dose optimization techniques were used for this CT. COMPARISON: Chest x-ray dated March 01, 2023. CT of the chest dated July 04, 2021 FINDINGS: Redemonstration of upper old right healed rib fractures with adjacent pleural thickening and scarring. No pleural-based mass is present. No demonstrated pleural effusion. Redemonstration of mild to moderate interstitial thickening/fibrosis scattered throughout both lungs with lower lobe predominance. No focal consolidation or definitive infiltrate is seen on the current study. Chronic dislocation of the right humeral head from the glenoid with a loculated chronic posttraumatic fluid collection versus joint effusion surrounding the humeral head. Normal heart is mildly enlarged. No pericardial effusion is present. Significant mitral valve calcifications are present. There are calcifications of the coronary arteries. Normal mediastinum. Normal hilar regions. Normal unenhanced pulmonary arteries. Normal aorta arch and descending thoracic aorta. There are multi-level degenerative changes of the thoracic spine. There is no demonstrated abnormality of the visualized upper abdomen. Chronic postoperative changes and spinal hardware is present. CT/Chest without Contrast IMPRESSION: 1. Redemonstration of upper old right healed rib fractures with adjacent pleural thickening and scarring. No pleural-based mass is present. No demonstrated pleural effusion. Redemonstration of mild to moderate interstitial thickening/fibrosis scattered throughout both lungs with lower lobe predominance. No focal consolidation or definitive infiltrate is seen on the current study. Electronically Signed: Bryce Brantley MD at 15:20 [facility] ,
[2023-03-01] MEDS: Furosemide 40 MG Tablet PO (13:43)
== END 2023-03-01 16:03 | disposition home or self-care (01) ==
PROVIDERS: Physician Assistant; Emergency Provider Emergency Medicine; PCP Family Medicine; Visit Provider Emergency Medicine
DX: R06.00 Dyspnea, unspecified (principal); I50.9 Heart failure, unspecified; I13.0 Hypertensive heart and chronic kidney disease with heart failure and stage 1 through stage 4 chronic kidney disease, or unspecified chronic kidney disease; E11.22 Type 2 diabetes mellitus with diabetic chronic kidney disease; Z79.4 Long term (current) use of insulin; N18.30 Chronic kidney disease, stage 3 unspecified; J06.9 Acute upper respiratory infection, unspecified; M10.9 Gout, unspecified; Z79.899 Other long term (current) drug therapy; Z79.82 Long term (current) use of aspirin; E03.9 Hypothyroidism, unspecified; Z90.49 Acquired absence of other specified parts of digestive tract; Z91.148 Patient's other noncompliance with medication regimen for other reason
CPT/HCPCS: 71046; 71250; 80048; 83880; 84484; 85025; 87428; 93005; 94640; 99285; A4216

== ENCOUNTER 2023-03-07 14:17 | Emergency (ER) | payer MEDICARE, SELFPAY ==
[2023-03-07 14:19] VITALS: BP 165/65; PULSE 79; RESP 15; TEMP 36.5; O2SAT 95; BMI 32.7
--- NOTE | 2023-03-07 14:44 | ED.VIS.DYS ---
HPI History of Present Illness Chief Complaint: Sore Throat Narrative Narrative: 88-year-old female presenting with shortness of breath. 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 Patient was noted to feel symptomatically short of breath. She has a history of COPD, CHF. Patient seen about a week ago for similar symptoms. Caregiver states that her SPO2 had been normal. After giving breathing treatments she seemed okay. Both he and his daughter mention that they were at Dr. Henson's office and follow-up last week and he went over the CT and x-ray and noted that she had an enlarged heart. Patient with history of CHF. Patient has not had a fever, chills. No nausea or vomiting. Patient's daughter states that she has issue with urination. She is urinating frequently. She had a urine checked at least 3 times and it was negative. She states that her mother describes the pain in the suprapubic area which lasts a few seconds to minutes and then the patient is able to void. She do not avoid until she feels the pain come and go. No history of kidney stones. Patient has a follow-up with urology next week but is not established yet. [facility] Medical History Chronic renal disease, stage 3, moderately decreased glomerular filtration rate (GFR) between 30-59 mL/min/1.73 square meter Chronic renal disease, stage III Colitis Depression Diabetes mellitus Diastolic CHF, chronic Essential hypertension First degree AV block GERD (gastroesophageal reflux disease) Gout History of GI bleed Hypothyroidism Kidney disease Kyphoscoliosis Non-smoker Osteoporosis Premature atrial contractions Premature ventricular contraction Pressure ulcer of back Type 2 diabetes mellitus Ventricular ectopy Home Medications allopurinol 100 mg tablet 100 mg PO DAILY gout 12/04/13 [History Last Taken 07/04/21] folic acid 1 mg tablet 1 mg PO BID supplement 12/04/13 [History Last Taken 07/04/21] biotin 10,000 mcg capsule 5,000 mcg PO DAILY supplement 03/10/16 [History Last Taken 07/04/21] montelukast 10 mg tablet 10 mg PO QHS allergies 03/10/16 [History Last Taken 07/03/21] docusate sodium 100 mg capsule 100 mg PO BID stool softener 03/15/16 [History Last Taken 07/04/21] fvrqkeao-shpf-ipby 8 mg-folic 400 mcg-K 50 mcg-lutein 300 mcg tablet 1 ea PO DAILY vitamin 10/17/16 [History Last Taken 07/04/21] cholecalciferol (vitamin D3) 1,250 mcg (50,000 unit) capsule 50,000 unit PO QMONTH supplement 05/25/18 [History Last Taken 06/05/21] insulin aspart U-100 100 unit/mL (3 mL) subcutaneous pen 4 unit subcut 0700,1200,1700 insulin 05/25/18 [History Last Taken 07/04/21] cimetidine 400 mg tablet 400 mg PO DAILY PRN upset stomach 07/04/21 [History Last Taken Unknown] furosemide 40 mg tablet 40 mg PO DAILY water pill 07/06/21 [History Last Taken Unknown] acetaminophen 500 mg tablet 1,000 mg (2 x 500 mg) PO Q6H PRN PRN Pain Score 1-5 #0 tabs 07/19/21 [Rx Last Taken Unknown] ondansetron 4 mg disintegrating tablet 4 mg PO Q8H PRN nausea and vomiting 30 days #90 tabs 07/19/21 [Rx Last Taken Unknown] aspirin 81 mg tablet,delayed release (Adult Low Dose Aspirin) 81 mg PO BID 04/25/22 [History Last Taken Unknown] meclizine 12.5 mg tablet 12.5 mg PO BID PRN Nausea 04/25/22 [History Last Taken Unknown] polysaccharide iron complex 150 mg iron capsule (iFerex 150) 150 mg PO .qod 04/25/22 [History Last Taken Unknown] insulin glargine 100 unit/mL (3 mL) subcutaneous pen 4 unit subcut QHS insulin 11/22/22 [History Last Taken Unknown] levothyroxine 100 mcg tablet (Synthroid) 100 mcg PO DAILY 11/22/22 [History Last Taken Unknown] nystatin 100,000 unit/gram topical powder (Nyamyc) 1 applic topical BID PRN skin protectant 11/22/22 [History Last Taken Unknown] oxycodone-acetaminophen 10 mg-325 mg tablet 1 tab PO Q8H PRN pain 11/22/22 [History Last Taken Unknown] losartan 50 mg tablet 50 mg PO DAILY #90 tabs 11/28/22 [Rx Last Taken Unknown] albuterol sulfate 2.5 mg/3 mL (0.083 %) solution for nebulization 2.5 mg continuous nebulization Q4H PRN shortness of breath or wheezing 03/01/23 [History Last Taken Unknown] amlodipine 10 mg tablet 10 mg PO DAILY 03/01/23 [History Last Taken Unknown] azelastine 137 mcg (0.1 %) nasal spray aerosol 2 spray intranasal BID 03/01/23 [History Last Taken Unknown] benzonatate 100 mg capsule 100 mg PO TID PRN cough 03/01/23 [History Last Taken Unknown] doxycycline hyclate 100 mg capsule 100 mg PO BID 03/01/23 [History Last Taken Unknown] ergocalciferol (vitamin D2) 1,250 mcg (50,000 unit) capsule (Drisdol) 50,000 unit PO QMONTH 03/01/23 [History Last Taken Unknown] polyethylene glycol 3350 17 gram oral powder packet (ClearLax) 17 g PO BID PRN constipation 03/01/23 [History Last Taken Unknown] sennosides 8.6 mg tablet (Sen-O-Tab) 8.6 mg PO BID PRN constipation 03/01/23 [History Last Taken Unknown] Allergy/AdvReac Type Severity Reaction Status Date / Time shellfish derived Allergy Severe Anaphylaxis Verified 03/07/23 14:24 hydrochlorothiazide Allergy Unknown Verified 03/07/23 14:24 [From Prinzide] Iodinated Contrast Media Allergy Anaphylaxis Verified 03/07/23 14:24 [Iodinated Contrast Media - IV Dye] lisinopril [From Prinzide] Allergy Unknown Verified 03/07/23 14:24 neomycin [Neomycin] Allergy Unknown Verified 03/07/23 14:24 guaifenesin [From Mucinex] AdvReac Severe PT UNSURE Verified 03/07/23 14:24 OF REACTION FABY Inhibitors AdvReac Mild Shortness Verified 03/07/23 14:24 of breath Family History Father CVA (cerebral vascular accident) Myocardial infarction Heart disease Mother Cancer Brother Pacemaker Surgical History History of appendectomy History of appendectomy History of back surgery History of back surgery History of cholecystectomy History of cholecystectomy History of tonsillectomy History of tonsillectomy Social History household members: none Smoking Status: Never smoker alcohol intake: never caffeine: Yes Type: coffee Number of servings: 4 EXAM Physical Exam Const Vital Signs: 03/07/23 14:19 03/07/23 14:51 03/07/23 16:18 Temperature 97.7 F L Temperature Source Oral Pulse Rate 79 83 Respiratory Rate 15 16 Respiratory Effort Normal Non-Labored Blood Pressure 165/65 H 129/56 H Blood Pressure Mean 98 80 Pulse Ox 95 94 Oxygen Delivery Method Room Air Room Air Room Air 03/07/23 17:47 Temperature Temperature Source Pulse Rate 83 Respiratory Rate 16 Respiratory Effort Blood Pressure 143/66 H Blood Pressure Mean 91 Pulse Ox 98 Oxygen Delivery Method MDM MDM MDM Narrative Medical decision making narrative: Presenting with resolved dyspnea. She stated her throat physical is closing. On exam she has no stridor. Her heart rate is regular rate and rhythm. Lungs clear to auscultation bilaterally. Patient awake alert and in no distress. Also having some abdominal pain complaints with before urinating. No kash dysuria. Differential includes ACS, pneumonia, dehydration, electrolyte normalities, anxiety, UTI, hernia, colitis, diverticulitis, pyelonephritis. CBC was obtained to assess with blood cell count, hemoglobin, platelets. CMP to assess liver function, renal function, electrolytes, glucose. High-sensitivity troponin and EKG were obtained to assess for ischemia/dysrhythmia. BNP to assess for CHF. CBC shows normal white blood cell count 7.5. Hemoglobin stable 11.1. Platelets are 291. Creatinine 1.3 which is near her baseline. LFTs are normal. High-sensitivity opponent 22. EKG on my interpretation shows sinus rhythm with first-degree AV block at a rate of 79 bpm without sign of ischemic. Chest x-ray my interpretation shows no acute process. The radiologist interprets this and agrees. Urinalysis appears to be negative for infection. Given patient's pain in her abdomen I did obtain a CT of the abdomen pelvis without contrast due to contrast allergy. This does not show any acute process. There is a nonstrangulated incarcerated hernia. On reevaluation the patient is comfortable. She has not been medicated. Family who is now here states that she has been getting heartburn recently and they do wonder if this is causing her symptoms. She is not on a PPI per family. I recommended they follow-up with her PCP for the symptoms. I counseled him they can take Pepcid as needed for any acute GERD symptoms. Recommended foods to avoid. Precautions discussed. Impression: 1 dyspnea 2. History of GERD 3. Abdominal pain Lab Data Attestation: I reviewed the patient's lab results. Labs: Laboratory Results - last 24 hr 03/07/23 03/07/23 14:36 15:16 WBC 7.5 RBC 3.61 L Hgb 11.1 L Hct 34.5 L MCV 95.6 MCH 30.7 MCHC 32.2 RDW Std Deviation 46.7 H RDW Coeff of Skye 13.2 Plt Count 291 MPV 9.7 Immature Gran % (Auto) 0.300 Neut % (Auto) 62.2 Lymph % (Auto) 20.0 [place] % (Auto) 7.5 Eos % (Auto) 8.9 H Baso % (Auto) 1.1 H Absolute Neuts (auto) 4.6 Absolute Lymphs (auto) 1.49 Nucleated RBC % 0 Sodium 137 Potassium 4.0 Chloride 103 Carbon Dioxide 30.0 Anion Gap 4 L BUN 38 H Creatinine 1.36 H Estim Creat Clear Calc 22.18 Est GFR (MDRD) Af Amer 47 L Est GFR (MDRD) Non-Af 39 L BUN/Creatinine Ratio 27.9 H Glucose 119 H Calcium 9.6 Total Bilirubin 0.40 AST 29 ALT 30 Alkaline Phosphatase 117 Troponin I High Sens 22 B-Natriuretic Peptide 141.3 H Total Protein 7.9 Albumin 3.8 Globulin 4.1 Albumin/Globulin Ratio 0.9 Urine Color Yellow Urine Clarity Clear Urine pH 6.5 Ur Specific [place] 1.005 Urine Protein Negative Urine Glucose (UA) Normal Urine Ketones Negative Urine Occult Blood 10 H Urine Nitrite Negative Urine Bilirubin Negative Urine Urobilinogen Normal Ur Leukocyte Esterase Negative Urine RBC 0 SEEN Urine WBC 0-5 SEEN Ur Squamous Epith Cells 0 SEEN Urine Bacteria 0 SEEN Urine Mucus 0 SEEN Radiography Diagnostic Testing: Clinical Impression(s) from Imaging Studies Chest X-Ray 03/07/23 14:46 IMPRESSION: No radiographic evidence of acute cardiopulmonary disease. Electronically Signed: Thomas Vickers MD at 16:14 EST , Abdomen/Pelvis CT 03/07/23 15:45 IMPRESSION: No acute findings in the abdomen or pelvis. Electronically Signed: Thomas Vickers MD at 16:27 EST , Discharge Plan Triage Chief Complaint: Sore Throat Other Complaint: Shortness of Breath ED Provider: George León Dx/Rx/DC Orders Instructions: ED Abdominal Pain Unkn Cause Fem, ED Dyspnea Prescriptions: No Action cholecalciferol (vitamin D3) 50,000 unit capsule 50,000 unit PO QMONTH Hold Instructions: Pt has been DC'd aspirin [Adult Low Dose Aspirin] 81 mg tablet,delayed release (DR/EC) 81 mg PO BID polysaccharide iron complex [iFerex 150] 150 mg iron capsule 150 mg PO .qod meclizine 12.5 mg tablet 12.5 mg PO BID MDD 25mg PRN (Reason: Nausea) levothyroxine [Synthroid] 100 mcg tablet 100 mcg PO DAILY oxycodone-acetaminophen 10-325 mg tablet 1 tab PO Q8H PRN (Reason: pain) Patient Comments: Take 1 tablet by mouth every 8 hours as needed for pain for up to 30 days. allopurinol 100 MG tablet 100 mg PO DAILY Patient Comments: gout folic acid 1 MG tablet 1 mg PO BID Patient Comments: supplement insulin aspart U-100 100 unit/mL insulin pen 4 unit subcut 0700,1200,1700 Patient Comments: diabetes insulin glargine 100 unit/mL (3 mL) insulin pen 4 unit subcut QHS Patient Comments: diabetes biotin 10,000 MCG capsule 5,000 mcg PO DAILY montelukast 10 MG tablet 10 mg PO QHS zqxokorz-cuj-slbc-FA-vit K-lut 1 EACH tablet 1 ea PO DAILY cimetidine 400 mg Tablet 400 mg PO DAILY PRN (Reason: upset stomach) furosemide 40 MG tablet 40 mg PO DAILY Patient Comments: diuresis, water pill Rx Instructions: take only 1 40 mg tab daily in the AM acetaminophen 500 mg Tablet 1,000 mg PO Q6H PRN PRN (Reason: Pain Score 1-5) Qty: 0 0RF ondansetron 4 mg tablet,disintegrating 4 mg PO Q8H PRN (Reason: nausea and vomiting) 30 Days Qty: 90 0RF nystatin [Nyamyc] 100,000 unit/gram powder 1 applic topical BID PRN (Reason: skin protectant) Hold Instructions: Pt has been DC'd Protocol: *Topical Application Instructions APPLICATION INSTRUCTIONS: under breast albuterol sulfate 2.5 mg /3 mL (0.083 %) solution for nebulization 2.5 mg continuous nebulization Q4H PRN (Reason: shortness of breath or wheezing) Patient Comments: Use 3 mL via nebulizer every 4 hours as needed for wheezing/shortness of breath. Use over 5-15minutes. amlodipine 10 mg tablet 10 mg PO DAILY benzonatate 100 mg capsule 100 mg PO TID PRN (Reason: cough) Patient Comments: Take 1 capsule by mouth three times a day as needed for up to 10 days. doxycycline hyclate 100 mg capsule 100 mg PO BID Patient Comments: Take 1 capsule by mouth twice daily for 10 days. ergocalciferol (vitamin D2) [Drisdol] 1,250 mcg (50,000 unit) capsule 50,000 unit PO QMONTH Patient Comments: PT TAKES ON FIRST DAY OF MONTH. azelastine 137 mcg (0.1 %) aerosol,spray 2 spray intranasal BID Rx Instructions: administer into each nostril polyethylene glycol 3350 [ClearLax] 17 gram powder in packet 17 g PO BID PRN (Reason: constipation) sennosides [Sen-O-Tab] 8.6 mg tablet 8.6 mg PO BID PRN (Reason: constipation) docusate sodium 100 MG capsule 100 mg PO BID Patient Comments: stool softner losartan 50 mg tablet 50 mg PO DAILY Qty: 90 3RF Primary Care Provider: Garret Henson Referrals: Garret Henson MD [Primary Care Provider] - Disposition Disposition: Home, Self Care
--- NOTE | 2023-03-07 14:46 | RAD_ITS ---
INDICATION: dyspnea EXAMINATION/TECHNIQUE: X-RAY - XR Chest 1 View COMPARISON: Chest x-ray and chest CT 03/01/2023 FINDINGS: LINES/DEVICES: None. LUNGS: Stable pleural-based density right upper chest laterally with old rib deformities. No consolidation, vascular congestion or pleural effusion. MEDIASTINUM AND CARDIOVASCULAR STRUCTURES: Cardiac silhouette not enlarged. Central airways and mediastinal contour are unremarkable. BONES AND SOFT TISSUES: No acute changes. Stable chronic dislocation right shoulder. RAD/Chest 1 View (Portable) IMPRESSION: No radiographic evidence of acute cardiopulmonary disease. Electronically Signed: Thomas Vickers MD at 16:14 EST ,
--- NOTE | 2023-03-07 14:47 | EKG12_ITS ---
Test Reason : SOB Blood Pressure : / mmHG Vent. Rate : 079 BPM Atrial Rate : 079 BPM P-R Int : 216 ms QRS Dur : 100 ms QT Int : 402 ms P-R-T Axes : 076 -45 068 degrees QTc Int : 460 ms Sinus rhythm with 1st degree A-V block with Premature atrial complexes Left anterior fascicular block Left ventricular hypertrophy ( R in aVL , Elliot product , Romhilt-Flood ) Nonspecific ST abnormality Abnormal ECG Confirmed by LOUIS COLMENARES, MELISSA ([id number]), copy editor HATTIE URIZ ([id number]) on 03/10/2023 10:16:15 AM Referred By: Confirmed By:MELISSA MYERS MD
[2023-03-07 14:51] VITALS: O2SAT 96
[2023-03-07 15:03] LABS: Absolute Lymphocyte Count 1.49 X10^3/uL (0.83-4.51); Absolute Neutrophil Count 4.6 X10^3/uL (2.0-7.7); Basophil# 0.08 X10^3/uL; Basophil% 1.1 % (0-1); Eosinophil# 0.66 X10^3/uL; Eosinophils% 8.9 % (0-5); Hematocrit 34.5 % (37-47); Hemoglobin 11.1 g/dL (12.0-15.0); Lymphocyte # 1.49 X10^3/ul (0.83-4.51); Mean Corp Hgb Conc 32.2 g/dL (32-36); Mean Corpuscular Hgb 30.7 pg (27.0-32.0); Mean Corpuscular Volume 95.6 fL (81-99); Mean Platelet Vol. 9.7 fl (6.2-12.0); Monocyte# 0.56 X10^3/uL; Monocyte% 7.5 % (0-10); NRBC Flagged by Analyzer 0 % (0-5); Neutrophil # 4.64 X10^3/uL (2.7-7.7); Neutrophil % 62.2 % (47-70); Platelet Count 291 K/mm3 (150-450); RBC Distribution Width CV 13.2 % (11.6-14.6); RBC Distribution Width SD 46.7 fl (35.1-43.9); Red Blood Count 3.61 M/mm3 (4.2-5.4); White Blood Count 7.5 K/mm3 (4.4-11.0)
[2023-03-07 15:23] LABS: Bacteria 0 SEEN /hpf (None Seen); Mucous, Urine 0 SEEN /hpf (<or=2+); Red Blood Cells-Urine 0 SEEN /hpf (0-5); Squamous Epithelial Cells - UA 0 SEEN /hpf (5-10)
[2023-03-07 15:25] LABS: Color, Urine Yellow (Yellow); Glucose, Dipstick Normal (Normal); Ketone-Dipstick Negative (Negative); Leukocyte Esterase-Dipstick Negative /ul (Negative); Nitrite-Dipstick Negative (Negative); Occult Blood-Urine 10 /ul (Negative); Protein-Dipstick Negative (Negative); Specific Gravity, Urine 1.005 (1.002-1.030); Urine Bilirubin Dipstick Negative (Negative); Urine Clarity Clear (Clear); Urine Urobilinogen Normal (Normal); Urine pH 6.5 (5.0 - 8.0)
[2023-03-07 15:32] LABS: ALB/GLOB Ratio 0.9 RATIO (0.9-2.4); AST(SGOT) 29 U/L (15-37); Alanine Aminotransfer ALT/SGPT 30 U/L (13-56); Albumin, Serum 3.8 g/dL (3.2-5.0); Alkaline Phosphatase 117 U/L (45-117); Anion Gap 4 (5-15); BUN 38 mg/dL (7-18); BUN/Creat Ratio 27.9 RATIO (10-20); Calcium,Total 9.6 mg/dL (8.5-10.1); Chloride 103 mmol/L (98-107); Creatinine, Serum 1.36 mg/dL (0.55-1.02); EST Glomerular Filtration Rate 39 mL/min (>60); Est Glom Filt Rate - Afr Amer 47 mL/min (>60); Estimated Creatinine Clearance 22.18 ml/min; Globulin 4.1 g/dL (2.2-4.2); Glucose 119 mg/dL (74-106); Protein, Total 7.9 g/dL (6.4-8.2); Sodium Level 137 mmol/L (136-145); Troponin-I HS 22 pg/mL (3.0-54.0)
--- NOTE | 2023-03-07 15:45 | CT_ITS ---
INDICATION: Abdominal pain, history of appendectomy and cholecystectomy EXAMINATION: CT ABDOMEN AND PELVIS WITHOUT CONTRAST - CT Abdomen And Pelvis W/O Contrast Injection TECHNIQUE: Helically acquired images were obtained of the abdomen and pelvis without oral or IV contrast. A radiation dose optimization technique was used for this scan. IV Contrast dosage and agent: None. Oral contrast: None. COMPARISON: Chest CT 03/01/2023, CT abdomen and pelvis 12/25/2019 FINDINGS: LOWER CHEST: Stable bibasilar fibrotic changes. No cardiomegaly or pericardial effusion. LIVER: Homogeneous. No focal mass. GALLBLADDER AND BILIARY TREE: Cholecystectomy. No intra- or extrahepatic biliary ductal dilation. PANCREAS: Stable diffuse fatty atrophy without solid or cystic mass. SPLEEN: Normal size without focal cystic or solid mass. ADRENAL GLANDS: No nodules. KIDNEYS AND URETERS: Stable bilateral cortical cysts. No hydronephrosis. PERITONEUM: No ascites or free air. BOWEL: Prior appendectomy. No stomach or bowel distension. No focal inflammatory change. LYMPH NODES: No enlarged mesenteric or retroperitoneal lymph nodes. VESSELS: Aorta is non-dilated. URINARY BLADDER: Unremarkable. REPRODUCTIVE ORGANS: No pelvic masses. ABDOMINAL WALL: Small fat-containing supraumbilical hernia contains portion of small bowel loops without strangulation or proximal obstruction. BONES: Stable changes from posterior lumbar fusion. No acute or aggressive abnormality. CT/Abdomen/Pelvis without Cont IMPRESSION: No acute findings in the abdomen or pelvis. Electronically Signed: Thomas Vickers MD at 16:27 EST Reading Location ID and State: [facility] / [place] Tel , Service support ,
[2023-03-07 15:46] LABS: White Blood Cells 0-5 SEEN /hpf (0-5)
[2023-03-07 16:01] LABS: BNP,B-Type NATRIURETIC PEPTIDE 141.3 pg/mL (0-100)
[2023-03-07 16:18] VITALS: BP 129/56; PULSE 83; RESP 16; O2SAT 94
[2023-03-07 17:47] VITALS: BP 143/66; PULSE 83; RESP 16; O2SAT 98
== END 2023-03-07 18:10 | disposition home or self-care (01) ==
PROVIDERS: Emergency Provider Student in an Organized Health Care Education/Training Program; PCP Family Medicine; Visit Provider Student in an Organized Health Care Education/Training Program
DX: R06.00 Dyspnea, unspecified (principal); J44.9 Chronic obstructive pulmonary disease, unspecified; I50.32 Chronic diastolic (congestive) heart failure; I13.0 Hypertensive heart and chronic kidney disease with heart failure and stage 1 through stage 4 chronic kidney disease, or unspecified chronic kidney disease; E11.22 Type 2 diabetes mellitus with diabetic chronic kidney disease; Z79.4 Long term (current) use of insulin; N18.30 Chronic kidney disease, stage 3 unspecified; J02.9 Acute pharyngitis, unspecified; M10.9 Gout, unspecified; Z79.899 Other long term (current) drug therapy; K21.9 Gastro-esophageal reflux disease without esophagitis; Z79.82 Long term (current) use of aspirin; E03.9 Hypothyroidism, unspecified; Z90.49 Acquired absence of other specified parts of digestive tract; R10.9 Unspecified abdominal pain
CPT/HCPCS: 71045; 74176; 80053; 81001; 83880; 84484; 85025; 93005; 99285; P9612

== ENCOUNTER 2023-04-26 12:28 | Emergency (ER) | payer MEDICARE, SELFPAY ==
[2023-04-26 12:30] VITALS: BP 155/128; PULSE 80; RESP 16; TEMP 36.8; O2SAT 95; BMI 32.4
--- NOTE | 2023-04-26 12:32 | EDS_ITS ---
HPI HPI - Fall History of Present Illness Chief Complaint: Fall PFSH PFSH Medical History Chronic renal disease, stage 3, moderately decreased glomerular filtration rate (GFR) between 30-59 mL/min/1.73 square meter Chronic renal disease, stage III Colitis Depression Diabetes mellitus Diastolic CHF, chronic Essential hypertension First degree AV block GERD (gastroesophageal reflux disease) Gout History of GI bleed Hypothyroidism Kidney disease Kyphoscoliosis Non-smoker Osteoporosis Premature atrial contractions Premature ventricular contraction Pressure ulcer of back Type 2 diabetes mellitus Ventricular ectopy Home Medications allopurinol 100 mg tablet 100 mg PO DAILY gout 12/04/13 [History Last Taken 07/04/21] folic acid 1 mg tablet 1 mg PO BID supplement 12/04/13 [History Last Taken 07/04/21] biotin 10,000 mcg capsule 5,000 mcg PO DAILY supplement 03/10/16 [History Last Taken 07/04/21] montelukast 10 mg tablet 10 mg PO QHS allergies 03/10/16 [History Last Taken 07/03/21] docusate sodium 100 mg capsule 100 mg PO BID stool softener 03/15/16 [History Last Taken 07/04/21] [id number]-qjcs 8 mg-folic 400 mcg-K 50 mcg-lutein 300 mcg tablet 1 ea PO DAILY vitamin 10/17/16 [History Last Taken 07/04/21] cholecalciferol (vitamin D3) 1,250 mcg (50,000 unit) capsule 50,000 unit PO QMONTH supplement 05/25/18 [History Last Taken 06/05/21] insulin aspart U-100 100 unit/mL (3 mL) subcutaneous pen 4 unit subcut 0700,1200,1700 insulin 05/25/18 [History Last Taken 07/04/21] cimetidine 400 mg tablet 400 mg PO DAILY PRN upset stomach 07/04/21 [History Last Taken Unknown] furosemide 40 mg tablet 40 mg PO DAILY water pill 07/06/21 [History Last Taken Unknown] acetaminophen 500 mg tablet 1,000 mg (2 x 500 mg) PO Q6H PRN PRN Pain Score 1-5 #0 tabs 07/19/21 [Rx Last Taken Unknown] ondansetron 4 mg disintegrating tablet 4 mg PO Q8H PRN nausea and vomiting 30 days #90 tabs 07/19/21 [Rx Last Taken Unknown] aspirin 81 mg tablet,delayed release (Adult Low Dose Aspirin) 81 mg PO BID 04/25/22 [History Last Taken Unknown] meclizine 12.5 mg tablet 12.5 mg PO BID PRN Nausea 04/25/22 [History Last Taken Unknown] polysaccharide iron complex 150 mg iron capsule (iFerex 150) 150 mg PO .qod 04/25/22 [History Last Taken Unknown] insulin glargine 100 unit/mL (3 mL) subcutaneous pen 4 unit subcut QHS insulin 11/22/22 [History Last Taken Unknown] levothyroxine 100 mcg tablet (Synthroid) 100 mcg PO DAILY 11/22/22 [History Last Taken Unknown] nystatin 100,000 unit/gram topical powder (Nyamyc) 1 applic topical BID PRN skin protectant 11/22/22 [History Last Taken Unknown] oxycodone-acetaminophen 10 mg-325 mg tablet 1 tab PO Q8H PRN pain 11/22/22 [History Last Taken Unknown] losartan 50 mg tablet 50 mg PO DAILY #90 tabs 11/28/22 [Rx Last Taken Unknown] albuterol sulfate 2.5 mg/3 mL (0.083 %) solution for nebulization 2.5 mg continuous nebulization Q4H PRN shortness of breath or wheezing 03/01/23 [History Last Taken Unknown] amlodipine 10 mg tablet 10 mg PO DAILY 03/01/23 [History Last Taken Unknown] azelastine 137 mcg (0.1 %) nasal spray aerosol 2 spray intranasal BID 03/01/23 [History Last Taken Unknown] benzonatate 100 mg capsule 100 mg PO TID PRN cough 03/01/23 [History Last Taken Unknown] doxycycline hyclate 100 mg capsule 100 mg PO BID 03/01/23 [History Last Taken Unknown] ergocalciferol (vitamin D2) 1,250 mcg (50,000 unit) capsule (Drisdol) 50,000 unit PO QMONTH 03/01/23 [History Last Taken Unknown] polyethylene glycol 3350 17 gram oral powder packet (ClearLax) 17 g PO BID PRN constipation 03/01/23 [History Last Taken Unknown] sennosides 8.6 mg tablet (Sen-O-Tab) 8.6 mg PO BID PRN constipation 03/01/23 [History Last Taken Unknown] Allergy/AdvReac Type Severity Reaction Status Date / Time shellfish derived Allergy Severe Anaphylaxis Verified 04/26/23 12:29 hydrochlorothiazide Allergy Unknown Verified 04/26/23 12:29 [From Prinzide] Iodinated Contrast Media Allergy Anaphylaxis Verified 04/26/23 12:29 [Iodinated Contrast Media - IV Dye] lisinopril [From Prinzide] Allergy Unknown Verified 04/26/23 12:29 neomycin [Neomycin] Allergy Unknown Verified 04/26/23 12:29 guaifenesin [From Mucinex] AdvReac Severe PT UNSURE Verified 04/26/23 12:29 OF REACTION FABY Inhibitors AdvReac Mild Shortness Verified 04/26/23 12:29 of breath Family History Father CVA (cerebral vascular accident) Myocardial infarction Heart disease Mother Cancer Brother Pacemaker Surgical History History of appendectomy History of appendectomy History of back surgery History of back surgery History of cholecystectomy History of cholecystectomy History of tonsillectomy History of tonsillectomy Social History household members: none Smoking Status: Never smoker alcohol intake: never caffeine: Yes Type: coffee Number of servings: 4 EXAM Physical Exam Const Vital Signs: 04/26/23 12:30 04/26/23 12:28 04/26/23 14:28 Temperature 98.2 F Temperature Source Temporal Pulse Rate 80 Respiratory Rate 16 16 Respiratory Effort Normal Non-Labored Respiratory Depth Normal Respiratory Pattern Normal Blood Pressure 155/128 H Blood Pressure Mean 137 Pulse Ox 95 Oxygen Delivery Method Room Air Room Air MDM MDM MDM Narrative Medical decision making narrative: HISTORY OF PRESENT ILLNESS: 88-year-old female presents with fall. The patient is hard of hearing, she is accompanied by her daughters and provide most history. Daughter notes witnessed mechanical fall from standing just prior to arrival the patient slipping on her sock falling backwards hitting her head. Patient complains of pain in the back of her head, neck and upper back pain. Denies any loss of consciousness. No blood thinner use. Daughters note patient had a fall 2 weeks ago that was mechanical in nature as well and injuring her right wrist and right knee however they do not think these areas were injured significantly. REVIEW OF SYSTEMS: Pertinent positives: head trauma, back pain Pertinent negatives: Focal weakness, bowel or bladder incontinence, urinary retention. PHYSICAL EXAM: Nursing triage notes reviewed, Vital signs reviewed Primary Survey Airway: Intact Breathing: Bilateral breath sounds Circulation: Palpable bilateral femorals, Palpable bilateral radial, Palpable bilateral DP and Palpable bilateral PT Disability / Spine precautions GCS Score: Eye Openin Verbal Response: 5 Motor Response: 6 Secondary Survey Constitutional: Please see MDM Head: cephalhematoma noted to the posterior occiput, Midface stable, NO jaw malocclusion, No Cephalohematoma, and No Lacerations noted Eye: Pupils equal round and reactive to light, Extraocular muscles intact and No periorbital ecchymosis or stepoff, no evidence of entrapment ENT: Oropharynx clear, no lacerations, no hemotympanum, no raccoon eyes or christine sign Cervical spine / Neck: No cervical spine bony tenderness, crepitance, or stepoff deformity Trachea midline Lungs: Clear to auscultation, No asymmetric rise and No crepitus, no flail chest Cardiac: Regular rate and rhythm and No murmurs Abdomen: Soft, Nontender and No rebound Pelvis: Pelvis stable to compression : No evidence of genital injury Back: No midline bony tenderness to thoracic/lumbar/sacral spines Neuro: At baseline, intact strength and sensation in bilateral upper and lower extremities. 2+ patellar reflexes bilaterally. Extremities: NO gross Deformities Psych: Normal affect Nursing triage notes reviewed, Vital signs reviewed MEDICAL DECISION MAKING: Chief Complaint: fall External records reviewed: Last ED visit on March 2023 for dyspnea Factors affecting care: History of CKD, type 2 diabetes, hypothyroidism Social determinants of health: none History obtained from others: none Consults: none [facility] Narrative: Patient was I considered the following differential diagnosis: ICH, cervical spine fracture, thoracic spine fracture, lumbar spine fracture. ALL IMAGES (IF OBTAINED) HAVE BEEN PERSONALLY REVIEWED AND INTERPRETED BY MYSELF. CT scan of the head, cervical spine, thoracic spine show no evidence of acute traumatic injury CT scan lumbar spine shows small chip fractures of the L1, L2, L3 transverse process Patient was ambulated with her baseline walker. She is appropriate discharge home. I discussed narcotic pain management however given the patient's falls, advanced age without narcotics would predispose her to more falls. The family agreed that narcotics are necessary and she will take Tylenol and ibuprofen as needed for pain. The patient and/or family, caregivers express understanding. The patient and/or family, caregivers agrees with the plan. Shared decision making: I will have a discussion with the patient and or visitors regarding risk/benefits of further testing or admission. They will be made aware of of the risk/benefits inherent in this decision they will be given the opportunity to voice understanding. Total critical care time today provided was at least 0 minutes. This excludes separately billable procedures. Critical care time (if documented) is secondary to the patient having high probability of clinically significant/life threatening deterioration in the patient's condition which required my urgent intervention. Impression: 1. Fall 2. Lumbar spine transverse process fracture Dispo: discharge Lab Data Labs: Laboratory Results - last 24 hr 04/26/23 14:21 POC Glucose 168 H Radiography Diagnostic Testing: Clinical Impression(s) from Imaging Studies Brain CT 04/26/23 12:57 IMPRESSION: Chronic involutional changes of the brain. Electronically Signed: Bryce Brantley MD at 14:15 EST , Cervical Spine CT 04/26/23 12:57 IMPRESSION: Multilevel degenerative changes, as described above. Electronically Signed: Bryce Brantley MD at 14:17 EST , Lumbar Spine CT 04/26/23 12:57 IMPRESSION: 1. Small chip fractures with minimal displacement are seen in the left L1, L2, and L3 transverse processes. 2. Multilevel degenerative changes, as described above. Electronically Signed: Bryce Brantley MD at 14:23 EST , Thoracic Spine CT 04/26/23 12:57 IMPRESSION: 1. Multilevel degenerative changes of the thoracic spine. Electronically Signed: Bryce Brantley MD at 14:33 EST , Discharge Plan Triage Chief Complaint: Fall ED Provider: Dominic Lance Dx/Rx/DC Orders Clinical Impression: Back fracture Instructions: ED Transverse Process Fracture Prescriptions: No Action cholecalciferol (vitamin D3) 50,000 unit capsule 50,000 unit PO QMONTH Hold Instructions: Pt has been DC'd aspirin [Adult Low Dose Aspirin] 81 mg tablet,delayed release (DR/EC) 81 mg PO BID polysaccharide iron complex [iFerex 150] 150 mg iron capsule 150 mg PO .qod meclizine 12.5 mg tablet 12.5 mg PO BID MDD 25mg PRN (Reason: Nausea) levothyroxine [Synthroid] 100 mcg tablet 100 mcg PO DAILY oxycodone-acetaminophen 10-325 mg tablet 1 tab PO Q8H PRN (Reason: pain) Patient Comments: Take 1 tablet by mouth every 8 hours as needed for pain for up to 30 days. allopurinol 100 MG tablet 100 mg PO DAILY Patient Comments: gout folic acid 1 MG tablet 1 mg PO BID Patient Comments: supplement insulin aspart U-100 100 unit/mL insulin pen 4 unit subcut 0700,1200,1700 Patient Comments: diabetes insulin glargine 100 unit/mL (3 mL) insulin pen 4 unit subcut QHS Patient Comments: diabetes biotin 10,000 MCG capsule 5,000 mcg PO DAILY montelukast 10 MG tablet 10 mg PO QHS qfbirbot-[id number]-dojv-FA-vit K-lut 1 EACH tablet 1 ea PO DAILY cimetidine 400 mg Tablet 400 mg PO DAILY PRN (Reason: upset stomach) furosemide 40 MG tablet 40 mg PO DAILY Patient Comments: diuresis, water pill Rx Instructions: take only 1 40 mg tab daily in the AM acetaminophen 500 mg Tablet 1,000 mg PO Q6H PRN PRN (Reason: Pain Score 1-5) Qty: 0 0RF ondansetron 4 mg tablet,disintegrating 4 mg PO Q8H PRN (Reason: nausea and vomiting) 30 Days Qty: 90 0RF nystatin [Nyamyc] 100,000 unit/gram powder 1 applic topical BID PRN (Reason: skin protectant) Hold Instructions: Pt has been DC'd Protocol: *Topical Application Instructions APPLICATION INSTRUCTIONS: under breast albuterol sulfate 2.5 mg /3 mL (0.083 %) solution for nebulization 2.5 mg continuous nebulization Q4H PRN (Reason: shortness of breath or wheezing) Patient Comments: Use 3 mL via nebulizer every 4 hours as needed for wheezing/shortness of breath. Use over 5-15minutes. amlodipine 10 mg tablet 10 mg PO DAILY benzonatate 100 mg capsule 100 mg PO TID PRN (Reason: cough) Patient Comments: Take 1 capsule by mouth three times a day as needed for up to 10 days. doxycycline hyclate 100 mg capsule 100 mg PO BID Patient Comments: Take 1 capsule by mouth twice daily for 10 days. ergocalciferol (vitamin D2) [Drisdol] 1,250 mcg (50,000 unit) capsule 50,000 unit PO QMONTH Patient Comments: PT TAKES ON FIRST DAY OF MONTH. azelastine 137 mcg (0.1 %) aerosol,spray 2 spray intranasal BID Rx Instructions: administer into each nostril polyethylene glycol 3350 [ClearLax] 17 gram powder in packet 17 g PO BID PRN (Reason: constipation) sennosides [Sen-O-Tab] 8.6 mg tablet 8.6 mg PO BID PRN (Reason: constipation) docusate sodium 100 MG capsule 100 mg PO BID Patient Comments: stool softner losartan 50 mg tablet 50 mg PO DAILY Qty: 90 3RF Primary Care Provider: Garret Henson Referrals: Garret Henson MD [Primary Care Provider] - Landen Hester DO [Med Staff - Active Staff] - Activity Restrictions/Additional Instructions: Thank you for trusting us with your care today! Please take Tylenol (2 pills, 650 mg), ibuprofen (2 pills, 400 mg) every 6 hours as needed for pain and fever control. Please return to the emergency department if your symptoms change or worsen. Please follow with your primary care physician for further outpatient evaluation and management. Disposition Disposition: Home, Self Care
--- OUTSIDE RECORDS SUMMARY | 2023-04-26 12:40 | XMS RPT_ITS | CCD ---
Author Name Unknown Address [address] [place] [address] Organization [facility] Care Team Providers Care Orthopaedic General Name Role Phone Rylee Henson MD Primary Care Provider Jadon Workman Unavailable Moodispaw, Shad F Unavailable Hiram Castro DO, Nilda Unavailable Ayush Wahl MD, Felicia Unavailable PODLOGARCHANDRIKA Referring Unavailable RYLEE HENSON Primary Care Unavailab Rylee Arora MD Primary Care Provider Jadon Workman Unavailable Moodispaalyssa, Shad F Unavailable Hiram Castro DO, Nilda Unavailable Ayush Wahl MD, Felicia Unavailable Rylee Henson MD Primary Care Provider Jadon Workman Unavailable Moodispaalyssa, Shad F Unavailable Hiram Castro DO, Nilda Unavailable Ayush Wahl MD, Felicia Unavailable Hiram Castro DO, Nilda Unavailable Rylee Henson MD Primary Care Provider Moodpaco Shad F Unavailable Kyra COLMENARES Shad F Unavailable BURSLEY, CHRISTOPHER Primary Care Unavailable BURSLEY, CHRISTOPHER Attending Unavailable [facility] Primary Care Unavailable BURSLEY, CHRISTOPHER Attending Unavailable [facility]LEY[facility] Primary Care Unavailable TESTRAKE, ZAK Attending Unavailable TESTRAKE, ZAK Referring Unavailable [facility]URSLEY, [facility] Primary Care Unavailable PODLOGAR, CHANDRIKA Attending Unavailable BURSLEY, CHRISTOPHER Primary Care Unavailable PODLOGAR, CHANDRIKA Attending Unavailable PODLOGAR, CHANDRIKA Referring Unavailable BURSLEY, CHRISTOPHER Primary Care Unavailable BURSLEY, CHRISTOPHER Referring Unavailable BURSLEY, CHRISTOPHER Primary Care Unavailable BURSLEY, CHRISTOPHER Primary Care Unavailable PODLOGAR, CHANDRIKA Attending Unavailable FELICIA IRWIN Referring Unavail able BURSLEY, CHRISTOPHER Primary Care Unavailable BURSLEY, CHRISTOPHER Primary Care Unavailable BURSLEY, CHRISTOPHER Attending Unavailable TESTRAKE, ZAK Attending Unavailable [facility]LEY[facility] Primary Care Unavailable TESTRAKE, ZAK Referring Unavailable [facility]URSLEY[facility] Primary Care Unavailable BURSLEY, CHRISTOPHER Attending Unavailable BURSLEY, CHRISTOPHER Primary Care Unavailable BURSLEY, CHRISTOPHER Primary Care Unavailable BURSLEY, CHRISTOPHER Referring Unavailable BURSLEY, CHRISTOPHER Primary Care Unavailable PODLOGAR, CHANDRIKA Referring Unavailable BURSLEY, CHRISTOPHER Primary Care Unavailable PODLOGAR, CHANDRIKA Attending Unavailable [facility]LEY[facility] Primary Care Unavailable FELICIA IRWIN Attending Unavail able [facility]URSLEY, [facility] Primary Care Unavailable BURSLEY, CHRISTOPHER Attending Unavailable [facility] Primary Care Unavailable BURSLEY, CHRISTOPHER Referring Unavailable Allergies Allergy Classification Reported Allergen(s) Allergy Type Date of Onset Reaction(s) Facility (18 sources) Angiotensin-converting enzyme inhibitor agent; Translations: [FABY INHIBITORS] Drug Allergy 5 [facility] (20 sources) hydroCHLOROthiazide / Lisinopril; Translations: [LISINOPRIL-HYDROCHLORO THIAZIDE] Drug Allergy 5 Cough [facility] (20 sources) Iodine; Translations: [IODINE] Drug Allergy 5 Anaphylaxis [facility] (20 sources) Neomycin; Translations: [NEOMYCIN] Drug Allergy 7 Rash [facility] Work Phone: (20 sources) Angiotensin-converting enzyme inhibitor agent Drug Allergy 5 [facility] (20 sources) guaiFENesin; Translations: [GUAIFENESIN] Drug Allergy 3 Unknown [facility] Work Phone: Medications Current Medications Medication Drug Class(es) Dates Sig (Normalized) Sig (Original) acetaminophen 325 mg / oxyCODONE hydrochloride 10 mg oral tablet (20 sources) Opioid Agonist Start: 09-03-2022 End: 04-04-2023 take 1 tablet by mouth every eight hours as needed for pain oxyCODONE-acetamino phen (PERCOCET) 10-325 mg tablet Indications: Lumbar radiculopathy Take 1 tablet by mouth every 8 hours as needed for pain for up to 30 days. 90 tablet 0 03/05/2023 04/04/2023 Active Completed/Discontinued Medications Medication Drug Class(es) Dates Sig (Normalized) Sig (Original) albuterol 0.83 mg/ml inhalation solution (20 sources) beta2-Adrenergic Agonist Start: 12-15-2020 End: 02-28-2023 albuterol (PROVENTIL) 2.5 mg /3 mL (0.083 %) nebulizer solution Indications: Viral URI with cough Use 3 mL via nebulizer every 4 hours as needed for wheezing/shortness of breath. Use over 5-15minutes. 100 mL 0 02/28/2023 Active Problems Active Problems Problem Classification Problem Date Documented Date Episodic/Chronic Abdominal hernia (1 source) Ventral hernia without obstruction or gangrene; Translations: [Abdominal wall hernia] Onset: 02-05-2023 Episodic Abdominal pain (5 sources) Right flank pain; Translations: [Unspecified abdominal pain] Onset: 02-12-2023 02-12-2023 Episodic Cardiac dysrhythmias (20 sources) Premature atrial contraction; Translations: [Atrial premature depolarization] Onset: 06-19-2018 06-19-2018 Chronic Chronic kidney disease (20 sources) Chronic kidney disease stage 3B ; Translations: [Stage 3b chronic kidney disease] Onset: 03-02-2016 06-21-2020 Chronic Chronic ulcer of skin (5 sources) Ulcer of back; Translations: [Pressure ulcer of sacral region, stage 2] Chronic Congestive heart failure; nonhypertensive (20 sources) Chronic diastolic heart failure; Translations: [Chronic diastolic (congestive) heart failure] Onset: 06-21-2020 06-21-2020 Chronic Diabetes mellitus with complications (20 sources) Type 2 diabetes mellitus; Translations: [Type 2 diabetes mellitus with other diabetic neurological complication] Onset: 01-02-2012 Chronic Essential hypertension (6 sources) Essential hypertension; Translations: [Essential (primary) hypertension] Chronic Genitourinary symptoms and ill-defined conditions (7 sources) Dysuria; Translations: [Dysuria] Onset: 02-03-2023 02-12-2023 Episodic Gout and other crystal arthropathies (20 sources) Gout; Translations: [Gout, unspecified] 02-20-2017 Chronic Hypertension with complications and secondary hypertension (20 sources) 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 3; Translations: [Hypertensive heart and chronic kidney disease with heart failure and stage 1 through stage 4 chronic kidney disease, or unspecified chronic kidney disease] Onset: 02-26-2008 06-21-2020 Chronic Malaise and fatigue (1 source) Asthenia; Translations: [Weakness] Episodic Nausea and vomiting (1 source) Nausea; Translations: [Nausea] Episodic Osteoarthritis (20 sources) Osteoarthritis of left knee joint; Translations: [Unilateral primary osteoarthritis, left knee] Onset: 01-07-2017 01-07-2017 Chronic Osteoporosis (20 sources) Osteoporosis; Translations: [Age-related osteoporosis without current pathological fracture] Onset: 01-25-2009 01-25-2009 Chronic Other acquired deformities (1 source) Acquired deformity of right rib; Translations: [Acquired deformity of chest and rib] Episodic Other and unspecified benign neoplasm (1 source) Lipoma of back; Translations: [Benign lipomatous neoplasm of skin and subcutaneous tissue of trunk] Episodic Other connective tissue disease (1 source) Swelling of right lower limb; Translations: [Other specified soft tissue disorders] Episodic Other connective tissue disease (2 sources) Pain of toe of left foot; Translations: [Pain in left toe(s)] Episodic Other connective tissue disease (2 sources) Pain of toe of right foot; Translations: [Pain in right toe(s)] Episodic Other injuries and conditions due to external causes (1 source) At high risk for fall; Translations: [History of falling] Episodic Other liver diseases (1 source) Alkaline phosphatase raised; Translations: [Abnormal levels of other serum enzymes] Episodic Other lower respiratory disease (1 source) Rib pain; Translations: [Pleurodynia] Episodic Other lower respiratory disease (3 sources) Dyspnea; Translations: [Shortness of breath] Episodic Other lower respiratory disease (1 source) Chronic cough; Translations: [Chronic cough] Episodic Other lower respiratory disease (3 sources) Productive cough ; Translations: [Productive cough] Onset: 02-28-2023 02-28-2023 Episodic Other non-traumatic joint disorders (1 source) Pain in left knee; Translations: [Pain in joint, lower leg] Episodic Other nutritional; endocrine; and metabolic disorders (20 sources) Obesity; Translations: [Obesity, unspecified] Onset: 02-20-2010 02-17-2020 Chronic Other screening for suspected conditions (not mental disorders or infectious disease) (1 source) Imaging of thorax abnormal; Translations: [Abnormal findings on diagnostic imaging of other specified body structures] 03-03-2023 Chronic Other skin disorders (2 sources) Mass of subcutaneous tissue of back; Translations: [Localized swelling, mass and lump, trunk] Episodic Other skin disorders (1 source) Localized swelling, mass and lump, trunk; Translations: [Subcutaneous mass of back] Onset: 02-05-2022 Episodic Other skin disorders (1 source) Skin lesion; Translations: [Disorder of the skin and subcutaneous tissue, unspecified] Episodic Other upper respiratory infections (3 sources) Posterior rhinorrhea; Translations: [Postnasal drip] Onset: 02-28-2023 Episodic Peripheral and visceral atherosclerosis (20 sources) Peripheral vascular disease, unspecified; Translations: [Peripheral vascular disease, unspecified] Onset: 02-17-2020 02-17-2020 Chronic Retinal detachments; defects; vascular occlusion; and retinopathy (20 sources) Retinal disorder; 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] Onset: 08-02-2014 01-24-2005 Chronic Rheumatoid arthritis and related disease (20 sources) Undifferentiated inflammatory arthritis; Translations: [Inflammatory polyarthropathy] Onset: 02-10-2012 02-10-2012 Chronic Substance-related disorders (1 source) Narcotic drug user; Translations: [Opioid use, unspecified, uncomplicated] Episodic Thyroid disorders (20 sources) Hypothyroidism; Translations: [Hypothyroidism, unspecified] Onset: 05-01-2011 05-01-2011 Chronic Past or Other Problems Problem Classification Problem Date Documented Date Episodic/Chronic Allergic reactions (20 sources) Radiation-induced dermatosis; Translations: [Other skin changes due to chronic exposure to nonionizing radiation] Onset: 12-19-2005 12-19-2005 Episodic Deficiency and other anemia (20 sources) Anemia; Translations: [Anemia, unspecified] Onset: 10-21-2011 10-21-2011 Episodic Fluid and electrolyte disorders (2 sources) Hyperkalemia; Translations: [Hyperkalemia] Onset: 10-07-2022 10-03-2022 Episodic Immunizations and screening for infectious disease (20 sources) Anti-nuclear factor positive; Translations: [Other specified abnormal immunological findings in serum] Onset: 02-10-2012 02-10-2012 Episodic Inflammation; infection of eye (except that caused by tuberculosis or sexually transmitteddisease) (20 sources) Discoid lupus erythematosus of eyelid; Translations: [Discoid lupus erythematosus of unspecified eye, unspecified eyelid] Onset: 08-19-2005 08-19-2005 Episodic Mycoses (20 sources) Onychomycosis due to dermatophyte ; Translations: [Tinea unguium] Onset: 02-08-2005 02-08-2005 Episodic Other aftercare (20 sources) Drug therapy finding; Translations: [Other fci (current) drug therapy] Onset: 07-15-2017 07-15-2017 Episodic Other aftercare (1 source) long-term (current) use of insulin; Translations: [Type 2 diabetes mellitus with diabetic peripheral angiopathy without gangrene, with long-term current use of insulin (HCC)] Onset: 02-17-2020 Episodic Other connective tissue disease (20 sources) Adhesive capsulitis of right shoulder; Translations: [Adhesive capsulitis of right shoulder] Onset: 10-22-2018 10-22-2018 Episodic Other connective tissue disease (1 source) Pain in right lower leg; Translations: [Right calf pain] Onset: 12-18-2022 Episodic Other diseases of veins and lymphatics (1 source) Venous insufficiency (chronic) (peripheral); Translations: [Venous insufficiency] Onset: 12-18-2022 Episodic Other skin disorders (20 sources) Disorder of skin pigmentation; Translations: [Disorder of pigmentation, unspecified] Onset: 12-19-2005 12-19-2005 Episodic Other skin disorders (20 sources) Scar conditions and fibrosis of skin; Translations: [Scar conditions and fibrosis of skin] Onset: 12-19-2005 12-19-2005 Episodic Spondylosis; intervertebral disc disorders; other back problems (20 sources) Spinal stenosis of lumbar region; Translations: [Spinal stenosis, lumbar region without neurogenic claudication] Onset: 09-07-2009 09-07-2009 Episodic Results Test Name Value Interpretation Reference Range Facil ity Vital Signs Date Time Vital Sign Value Performing Clinician Brian ga 03-05-2023 10:41-0500 Diastolic blood pressure 70 mm[Hg] Rylee Henson MD Work Phone: [facility] 03-05-2023 10:41-0500 Heart rate 73 /min Rylee Henson MD Work Phone: [facility] 03-05-2023 10:41-0500 Respiratory rate 20 /min Rylee Henson MD Work Phone: [facility] 03-05-2023 10:41-0500 SaO2% (BldA) [Mass fraction] 97 % Rylee Henson MD Work Phone: [facility] 03-05-2023 10:41-0500 Systolic blood pressure 140 mm[Hg] Rylee Henson MD Work Phone: [facility] 02-28-2023 09:43-0500 Body temperature 98.2 [degF] Rylee Henson MD Work Phone: [facility] 02-28-2023 09:43-0500 Diastolic blood pressure 64 mm[Hg] Rylee Henson MD Work Phone: [facility] 02-28-2023 09:43-0500 Heart rate 71 /min Rylee Henson MD Work Phone: [facility] 02-28-2023 09:43-0500 SaO2% (BldA) [Mass fraction] 95 % Rylee Henson MD Work Phone: [facility] 02-28-2023 09:43-0500 Systolic blood pressure 128 mm[Hg] Rylee Henson MD Work Phone: [facility] 02-12-2023 14:04-0500 Diastolic blood pressure 62 mm[Hg] Felicia Wahl MD Work Phone: [facility] 02-12-2023 14:04-0500 Systolic blood pressure 140 mm[Hg] Felicia Wahl MD Work Phone: [facility] 12-30-2022 10:06-0400 Diastolic blood pressure 68 mm[Hg] Rylee Henson MD Work Phone: [facility] 12-30-2022 10:06-0400 Heart rate 73 /min Rylee Henson MD Work Phone: [facility] 12-30-2022 10:06-0400 Respiratory rate 18 /min Rylee Henson MD Work Phone: [facility] 12-30-2022 10:06-0400 SaO2% (BldA) [Mass fraction] 94 % Rylee Henson MD Work Phone: [facility] 12-30-2022 10:06-0400 Systolic blood pressure 134 mm[Hg] Rylee Henson MD Work Phone: [facility] 06-24-2022 11:56-0400 Diastolic blood pressure 62 mm[Hg] Rylee Henson MD Work Phone: [facility] 06-24-2022 11:56-0400 Systolic blood pressure 136 mm[Hg] Rylee Henson MD Work Phone: [facility] 06-24-2022 11:11-0400 Heart rate 72 /min Rylee Henson MD Work Phone: [facility] 06-24-2022 11:11-0400 Respiratory rate 16 /min Rylee Henson MD Work Phone: [facility] 06-24-2022 11:11-0400 SaO2% (BldA) [Mass fraction] 99 % Rylee Henson MD Work Phone: [facility] 03-27-2022 13:56-0500 Body temperature 99.3 [degF] Chandrika Podlogar GUIDANCE AND CONTROL SYSTEM ENGINEER.ELECTRONIC REPAIR TROUBLESHOOTER Work Phone: [facility] 03-27-2022 13:56-0500 Diastolic blood pressure 54 mm[Hg] Chandrika Podlogar GUIDANCE AND CONTROL SYSTEM ENGINEER.ELECTRONIC REPAIR TROUBLESHOOTER Work Phone: [facility] 03-27-2022 13:56-0500 Heart rate 83 /min Chandrika Podlogar GUIDANCE AND CONTROL SYSTEM ENGINEER.ELECTRONIC REPAIR TROUBLESHOOTER Work Phone: [facility] 03-27-2022 13:56-0500 Respiratory rate 18 /min Chandrika Podlogar GUIDANCE AND CONTROL SYSTEM ENGINEER.ELECTRONIC REPAIR TROUBLESHOOTER Work Phone: [facility] 03-27-2022 13:56-0500 SaO2% (BldA) [Mass fraction] 93 % Chandrika Podlogar GUIDANCE AND CONTROL SYSTEM ENGINEER.ELECTRONIC REPAIR TROUBLESHOOTER Work Phone: [facility] 03-27-2022 13:56-0500 Systolic blood pressure 106 mm[Hg] Chandrika Podlogar GUIDANCE AND CONTROL SYSTEM ENGINEER.ELECTRONIC REPAIR TROUBLESHOOTER Work Phone: [facility] 02-05-2022 10:21-0400 Diastolic blood pressure 66 mm[Hg] Chandrika Podlogar GUIDANCE AND CONTROL SYSTEM ENGINEER.ELECTRONIC REPAIR TROUBLESHOOTER Work Phone: [facility] 02-05-2022 10:21-0400 Heart rate 74 /min Chandrika Podlogar GUIDANCE AND CONTROL SYSTEM ENGINEER.ELECTRONIC REPAIR TROUBLESHOOTER Work Phone: [facility] 02-05-2022 10:21-0400 Respiratory rate 16 /min Chandrika Podlogar GUIDANCE AND CONTROL SYSTEM ENGINEER.ELECTRONIC REPAIR TROUBLESHOOTER Work Phone: [facility] 02-05-2022 10:21-0400 SaO2% (BldA) [Mass fraction] 97 % Chandrika Podlogar GUIDANCE AND CONTROL SYSTEM ENGINEER.ELECTRONIC REPAIR TROUBLESHOOTER Work Phone: [facility] 02-05-2022 10:21-0400 Systolic blood pressure 116 mm[Hg] Chandrika Podlogar GUIDANCE AND CONTROL SYSTEM ENGINEER.ELECTRONIC REPAIR TROUBLESHOOTER Work Phone: [facility] 01-30-2022 10:33-0400 Diastolic blood pressure 74 mm[Hg] Rylee Henson MD Work Phone: [facility] 01-30-2022 10:33-0400 Heart rate 72 /min Rylee Henson MD Work Phone: [facility] 01-30-2022 10:33-0400 Respiratory rate 16 /min Rylee Henson MD Work Phone: [facility] 01-30-2022 10:33-0400 Systolic blood pressure 136 mm[Hg] Rylee Henson MD Work Phone: [facility] 11-19-2021 11:40-0400 Body temperature 98.91 [degF] Chandrika Podlogar GUIDANCE AND CONTROL SYSTEM ENGINEER.ELECTRONIC REPAIR TROUBLESHOOTER Work Phone: [facility] 11-19-2021 11:40-0400 Diastolic blood pressure 60 mm[Hg] Chandrika Podlogar GUIDANCE AND CONTROL SYSTEM ENGINEER.ELECTRONIC REPAIR TROUBLESHOOTER Work Phone: [facility] 11-19-2021 11:40-0400 Heart rate 83 /min Chandrika Podlogar GUIDANCE AND CONTROL SYSTEM ENGINEER.ELECTRONIC REPAIR TROUBLESHOOTER Work Phone: [facility] 11-19-2021 11:40-0400 Respiratory rate 18 /min Chandrika Podlogar GUIDANCE AND CONTROL SYSTEM ENGINEER.ELECTRONIC REPAIR TROUBLESHOOTER Work Phone: [facility] 11-19-2021 11:40-0400 SaO2% (BldA) [Mass fraction] 97 % Chandrika Podlogar GUIDANCE AND CONTROL SYSTEM ENGINEER.ELECTRONIC REPAIR TROUBLESHOOTER Work Phone: [facility] 11-19-2021 11:40-0400 Systolic blood pressure 122 mm[Hg] Chandrika Podlogar GUIDANCE AND CONTROL SYSTEM ENGINEER.ELECTRONIC REPAIR TROUBLESHOOTER Work Phone: [facility] Encounters Encounter Date Encounter Type Care Provider Facility Start: 03-28-2023 End: 03-28-2023 ambulatory RYLEE HENSON Facility:[facility] Start: 03-17-2023 Refill Rylee Henson MD Work Phone: [facility] Procedures Date Procedure Procedure Detail Performing Clinician Start: 02-12-2023 BACTERIAL VAGINOSIS NAAT Felicia Wahl MD Work Phone: Start: 02-12-2023 Iadna trichomonas vaginalis amplified probe tech Felicia Wahl MD Work Phone: Start: 02-12-2023 Urnls dip stick/tabl et rgnt auto w/o microscopy Felicia Wahl MD Work Phone: Start: 12-30-2022 INFLUENZA VACCINE, P RSV FREE, AGE 65+ YR, HIGH DOSE, QUADRIVALENT (FLUZONE HIGH-DOSE) Rylee Henson MD Work Phone: Start: 06-24-2022 Drug tst prsmv instr mnt chem analyzers pr date Rylee Henson MD Work Phone: Plan of Treatment Date Care Activity Detail Author Start: 03-18-2028 Urine microalbumin profile [facility] Start: 12-31-2023 Hepatitis B screening Urine Al bumin:Creatinine Ratio [facility] Start: 12-31-2023 Hepatitis B surface antibody level LDL Cholesterol [facility] Start: 06-30-2023 Hemoglobin A1c measurement HbA1C [facility] Start: 06-30-2023 Hemoglobin A1c/Hemoglobin.total in Blood HbA1C [facility] Start: 06-25-2023 COVID-19 VACCINE (#1) COVID-19 VACCI NE (#1) [facility] Immunizations Immunization Date Immunization Notes Care Provider Fa cility 12-30-2022 influenza (HD-IIV4) vaccine, age 65+ yr, high dose, quadrivalent, PF (FLUZONE HIGH-DOSE) Rylee Henson MD Work Phone: [facility] 03-19-2021 influenza, high-dose , quadrivalent vaccine (FLUZONE HIGH DOSE QUADRIVALENT) Chandrika Granadoslogdarrell GUIDANCE AND CONTROL SYSTEM ENGINEER.ELECTRONIC REPAIR TROUBLESHOOTER Work Phone: [facility] 03-19-2021 influenza virus vaccine, unspecified formulation Zak Lorenzo Work Phone: [facility] 12-20-2019 influenza, high-dose , quadrivalent vaccine (FLUZONE HIGH DOSE QUADRIVALENT) Chandrika Almonte GUIDANCE AND CONTROL SYSTEM ENGINEER.ELECTRONIC REPAIR TROUBLESHOOTER Work Phone: [facility] 04-26-2019 influenza, high dose seasonal, preservative-free Chandrika Granadoslogdarrell GUIDANCE AND CONTROL SYSTEM ENGINEER.ELECTRONIC REPAIR TROUBLESHOOTER Work Phone: [facility] 02-05-2018 influenza, injectabl e, quadrivalent, contains preservative Chandrika Podlogar GUIDANCE AND CONTROL SYSTEM ENGINEER.ELECTRONIC REPAIR TROUBLESHOOTER Work Phone: [facility] 01-23-2018 influenza, high dose seasonal, preservative-free Chandrika Podlogar GUIDANCE AND CONTROL SYSTEM ENGINEER.ELECTRONIC REPAIR TROUBLESHOOTER Work Phone: [facility] 12-26-2016 influenza, high dose seasonal, preservative-free Chandrika Podlogar GUIDANCE AND CONTROL SYSTEM ENGINEER.ELECTRONIC REPAIR TROUBLESHOOTER Work Phone: [facility] 07-07-2016 tetanus toxoid, redu kate diphtheria toxoid, and acellular pertussis vaccine, adsorbed Chandrika Podlogar GUIDANCE AND CONTROL SYSTEM ENGINEER.ELECTRONIC REPAIR TROUBLESHOOTER Work Phone: [facility] 01-19-2016 influenza, high dose seasonal, preservative-free Chandrika Podlogar GUIDANCE AND CONTROL SYSTEM ENGINEER.ELECTRONIC REPAIR TROUBLESHOOTER Work Phone: [facility] Work Phone: 01-06-2016 influenza, seasonal, injectable, preservative free Chandrika Podlogar GUIDANCE AND CONTROL SYSTEM ENGINEER.ELECTRONIC REPAIR TROUBLESHOOTER Work Phone: [facility] 02-09-2015 influenza, high dose seasonal, preservative-free Chandrika Podlogar GUIDANCE AND CONTROL SYSTEM ENGINEER.ELECTRONIC REPAIR TROUBLESHOOTER Work Phone: [facility] Work Phone: 12-20-2014 pneumococcal conjuga te vaccine, 13 valent Chandrika Podlogar GUIDANCE AND CONTROL SYSTEM ENGINEER.ELECTRONIC REPAIR TROUBLESHOOTER Work Phone: [facility] 01-06-2014 influenza, seasonal, injectable Chandrika Podlogar GUIDANCE AND CONTROL SYSTEM ENGINEER.ELECTRONIC REPAIR TROUBLESHOOTER Work Phone: [facility] 02-03-2013 pneumococcal polysaccharide vaccine, 23 valent Chandrika Podlogar GUIDANCE AND CONTROL SYSTEM ENGINEER.ELECTRONIC REPAIR TROUBLESHOOTER Work Phone: [facility] 12-28-2012 influenza virus vaccine, unspecified formulation Chandrika Podlogar GUIDANCE AND CONTROL SYSTEM ENGINEER.ELECTRONIC REPAIR TROUBLESHOOTER Work Phone: [facility] 12-30-2011 influenza virus vaccine, unspecified formulation Chandrika Podlogar GUIDANCE AND CONTROL SYSTEM ENGINEER.ELECTRONIC REPAIR TROUBLESHOOTER Work Phone: [facility] 02-07-2011 influenza virus vaccine, unspecified formulation Hcandrika Podlogar GUIDANCE AND CONTROL SYSTEM ENGINEER.ELECTRONIC REPAIR TROUBLESHOOTER Work Phone: [facility] 2010 influenza virus vaccine, unspecified formulation Chandrika Podlogar GUIDANCE AND CONTROL SYSTEM ENGINEER.[facility] Work Phone: [facility] 01-11-2009 influenza virus vaccine, unspecified formulation Chandrika Podlogar GUIDANCE AND CONTROL SYSTEM ENGINEER.[facility] Work Phone: [facility] Work Phone: 02-26-2008 influenza virus vaccine, unspecified formulation Chandrika Podlogar GUIDANCE AND CONTROL SYSTEM ENGINEER.[facility] Work Phone: [facility] Work Phone: 09-28-2007 diphtheria and tetan us toxoids, adsorbed for pediatric use Chandrika Podlogar GUIDANCE AND CONTROL SYSTEM ENGINEER.[facility] Work Phone: [facility] Work Phone: 02-09-2007 influenza virus vaccine, unspecified formulation Chandrika Podlogar GUIDANCE AND CONTROL SYSTEM ENGINEER.[facility] Work Phone: [facility] Work Phone: 02-21-2006 influenza virus vaccine, unspecified formulation Chandrika Podlogar GUIDANCE AND CONTROL SYSTEM ENGINEER.[facility] Work Phone: [facility] Work Phone: 02-14-2005 influenza virus vaccine, unspecified formulation Chandrika Podlogar [employer] ENGINEER.[facility] Work Phone: [facility] Work Phone: 02-16-2003 pneumococcal polysaccharide vaccine, 23 valent Chandrika Podlogar [employer]UIDANCE [employer] CONTROL SYSTEM ENGINEER.[facility] Work Phone: [facility] Work Phone: 02-09-1994 diphtheria and tetan us toxoids, adsorbed for pediatric use Chandrika Podlogar GUIDANCE AND CONTROL SYSTEM ENGINEER.[facility] Work Phone: [facility] Work Phone: Payers Date Payer Category Payer Medicare AETNA MEDICARE A ETNA MEDICARE PPO [id number] 2021-Present [phone] [address] [place] [address] PPO [id number] 2021 Medicare [id number] 2016 Medicare [id number] 2016 Medicare [id number] Social History Date Type Detail Facility Start: 03-25-2017 End: 11-19-2021 Tobacco smoking status NHIS Never smoked tobacco [facility] Work Phone: Start: 03-19-2021 End: 03-05-2023 Alcohol intake Current non-drinker of alcohol (finding) [facility] Start: 09-28-2019 End: 04-30-2022 History SDOH Alcohol Frequency 1 [facility] Start: 06-12-2018 End: 04-30-2022 History SDOH Social Connections Phone 5 [facility] Start: 06-12-2018 History SDOH Social Connections Living 3 [facility] Start: 09-28-2019 End: 04-30-2022 History SDOH Transport Med 2 [facility] Start: 1935 Sex Assigned At Not on file [facility] Start: 07-13-2021 End: 02-05-2022 Exposure to SARS-CoV-2 (event) Not sure [facility] Start: 03-25-2017 End: 11-19-2021 Tobacco use and exposure Smokeless tobacco non-user [facility] Start: 04-30-2022 History SDOH Alcohol Std Drinks 98 [facility] Start: 04-30-2022 History SDOH Social Connections Living 4 [facility] Start: 04-30-2022 End: 09-30-2022 History of Social function [facility] Start: 04-30-2022 End: 09-30-2022 Social connection and isolation panel [facility] Do you belong to any clubs or organizations such as congregation groups, unions, fraternal or athletic groups, or school groups? No [facility] Are you now , , , , never or living with a partner? [facility] How often to you hav e a drink containing alcohol? Never [facility] How many standard dr inks containing alcohol do you have on a typical day? Patient refused [facility] Do you feel stress - tense, restless, nervous, or anxious, or unable to sleep at night because your mind is troubled all the time - these days [OSQ] Not at all [facility] (I/We) worried wheth er (my/our) food would run out before (I/we) got money to buy more. DK or Refused [facility] Medical Equipment Procedure Code Equipment Code Equipment Origin al Text Equipment Identifier Dates Start: 12-14-2020 End: 03-11-2023 Goals Date Patient Goal Desired Activity /State Personal health goal Personal health goal Personal health goal Clinical Notes 06-19-2018 to 03-28-2023 Telephone Encounter - Candida Card LPN - 03/18/2023 1:43 PM ESTTelephone Encounter - Chandrika Almonte APRN.CNP - 03/18/2023 7:18 AM Rylee Huang MD - 03/05/2023 10:43 AM EST Note Date & Type Note Facility 03-28-2023 Note HNO ID: [id number] Author: Chandrika Almonte APRN.SPIKE Service: ? Author Type: Nurse Practitioner Type: Progress Notes Filed: 03/28/2023 11:46 AM Note Text: 03/28/2023 Patient presents with: Recheck: 3 month SUBJECTIVE: This is a 88 year old, accompanied by caregiver Everardo, that is here today for Above Complaints. Since last office visit has been in good health without ER visits or hospitalizations. DIABETES MELLITUS:Since our last visit she denies excessive thirst or increased frequency of urination, chest pain or dyspnea , numbness, tingling or pain in extremities, new or unusual visual symptoms, low sugar/hypoglycemic reactions, weight loss/gain, lightheadedness/dizziness, and bowel changes/loose stools Follows a diabetic diet most of the time. She is compliant with medication(s) and is tolerating med(s) without any side effects. She reports checking her glucose on a four times a day schedule with sugars in the <200 range. Patient's last HgA1C was Hemoglobin A1C (%) Date Value 12/30/2022 7.1 10/02/2022 6.7 12/15/2020 7.6 07/10/2020 7.8 ) Last Ophthalmology exam was within the past 12 months Last Podiatry exam was 12/04/2022, next follow-up in April HYPOTHYROIDISM: taking synthroid as prescribed without side effects HTN: Patient is compliant with meds Yes Monitors bp at home: Yes. Denies side effects: Yes. Chest pain: No. Dyspnea: No. Edema: yes but has improved on lasix Palpitations: No. Syncope: No. Headache: No. Dizziness: No. Saw on 03/25 for urianry urgency and burning. Given a bladder relaxer for four weeks and then will have a cystoscopy Taking percocet as prescribed three times a day. Helps with chronic back and right shoulder pain. Controls pain so she can use walker to ambulate. Urine drug screen completed 06/24/2022 CHF: follow with [facility] cardiology. Last appointment on 11/22/2022. Amlodipine stopped due to leg swelling and losartan increased. Recommended follow-up in 6-7 months PAST MEDICAL HISTORY Diagnosis Date Anemia Bilateral lower extremity edema CHF (congestive heart failure) ([facility]) [facility]. Chronic diastolic heart failure Chronic lower back pain DIVERTICULOSIS Essential hypertension, benign Gangrene ([facility]) 03/22/2005 Gastric ulcer, unspecified as acute or chronic, without mention of hemorrhage, perforation, or obstruction Gout Hypothyroidism Inflammatory and toxic neuropathy, unspecified Iron deficiency anemia, unspecified Lumbar spinal stenosis Macular degeneration Osteoarthritis Osteoporosis 01/25/2009 BMD 01/16/09, No sig change from baseline. Proliferative diabetic retinopathy, both eyes ([facility]) inactive Renal failure, unspecified Dr. Gandhi Thrombocytopenia, unspecified ([facility]) Type II 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, not stated as uncontrolled(250.60) Ulcer of other part of foot ALLERGIES Ivp Dye [Iodine], Prinzide [Lisinopril-Hydrochlorothiazide] , Faby Inhibitors, Mucinex [Guaifenesin], and Neomycin MEDICATIONS Current Outpatient Medications Medication Sig meclizine (ANTIVERT) 12.5 mg tab Take 1 tablet by mouth two times a day as needed (dizziness). ondansetron orally disintegrating (ZOFRAN ODT) 4 mg disintegrating tablet Take 1 tablet by mouth every 8 hours as needed for nausea/vomiting. oxyCODONE-acetaminophen (PERCOCET) 10-325 mg tablet Take 1 tablet by mouth every 8 hours as needed for pain for up to 30 days. albuterol (PROVENTIL) 2.5 mg /3 mL (0.083 %) nebulizer solution Use 3 mL via nebulizer every 4 hours as needed for wheezing/shortness of breath. Use over 5-15minutes. furosemide (LASIX) 40 mg tablet Take 1 tablet by mouth once daily. levothyroxine (SYNTHROID) 100 mcg tablet Take 1 tablet by mouth daily before breakfast. insulin glargine (LANTUS SOLOSTAR U-100 INSULIN) 100 unit/mL (3 mL) Take 4 units daily (box of 5 pens). folic acid 1 mg tablet Take 1 tablet by mouth two times a day. losartan (COZAAR) 50 mg tablet Take 1 tablet by mouth once daily. Per Dr. Gandhi, nephrology Biotin 10,000 mcg cap Take 5,000 mcg by mouth. cimetidine (TAGAMET) 400 mg tablet Take 400 mg by mouth as needed (upset stomach). Blood-Glucose Meter (TRUE METRIX AIR GLUCOSE METER) Check blood sugar four times a day blood sugar diagnostic (TRUE METRIX GLUCOSE TEST STRIP) test strip Use as instructed flash glucose scanning reader (FREESTYLE HALIMA 14 DAY READER) 1 Device four times daily. allopurinol (ZYLOPRIM) 100 mg tablet Take 1 tablet by mouth once daily. amLODIPine (NORVASC) 10 mg tablet Take 1 tablet by mouth once daily. (Patient not taking: Reported on 12/04/2022) IFEREX 150 150 mg iron capsule Take 1 capsule by mouth every other day. montelukast (SINGULAIR) 10 mg tablet Take 1 tablet by mouth daily at bedtime. flash glucose sensor (FREESTYLE HALIMA 14 DAY SENSOR) kit 1 Each every 2 weeks. insulin aspart U-100 (NOVOLOG FLEXPEN (more content not included)... [facility] 03-18-2023 Miscellaneous Notes Called Son Narinder back regarding refill request. Son said patient has had increased nausea for a couple weeks. States this isn't anything new that it has always come and gone for patient. She has utilized the zofran last written as needed and just ran out over the weekend. Candida Card LPN Is patient having problems with nausea? Doesn't;t look like we have ordered this Zofran in some time. Chandrika Almonte APRN.SPIKE Patient has been identified by name and date of : Yes Requested Prescriptions Pending Prescriptions Disp Refills meclizine (ANTIVERT) 12.5 mg tab 60 tablet 5 Sig: Take 1 tablet by mouth two times a day as needed (dizziness). ondansetron orally disintegrating (ZOFRAN ODT) 4 mg disintegrating tablet RX INSTRUCTIONS: Patient aware RX will be sent to pharmacy. No need to notify patient. Kari Montenegro documented in this encounter [facility] 03-05-2023 Note HNO ID: [id number] Author: Rylee Henson MD Service: ? Author Type: Physician Type: Progress Notes Filed: 03/06/2023 11:41 AM Note Text: Chief Complaint Patient presents with: ER F/U: 03/01/2023 - cough, sob Currently on a ATB HPI Shanice Patel is a 88 year old female who presents here today for Above Complaints. Accompanied today by caregiver. Patient evaluated at [facility] ED on 03/01 after we started her on doxycycline for pneumonia on 02/28 and had worsening SOB at home. Given albuterol in the ER for SOB and wheezing. CXR negative for infection, but did show right pleural opacity, so CT chest w/o contrast was ordered. CT showed healed rib fractures on right with scarring. No mass found. Did not fibrosis without pneumonia. Noted swelling on her exam and was told to resume her lasix which she had not been taking. BNP there was 170. Discharged home without other change to regimen. Today, states that she continues to have productive cough, but SOB has improved. Taking doxycycline as prescribed and has restarted her lasix. Caregiver states that she has had a good week with occasional coughing spells. Has not tried the tessalon we prescribed yet. Using nebulized albuterol once per day which does help with cough. Needs refill on her Percocet today. States that it is working well to control her lower back pain and helps her with ADLs and ambulation. Past medical history, appointments, medications, allergies reviewed. Previous Medical History PAST MEDICAL HISTORY Diagnosis Date Anemia Bilateral lower extremity edema CHF (congestive heart failure) ([facility]) [facility]. Chronic diastolic heart failure Chronic lower back pain DIVERTICULOSIS Essential hypertension, benign Gangrene ([facility]) 03/22/2005 Gastric ulcer, unspecified as acute or chronic, without mention of hemorrhage, perforation, or obstruction Gout Hypothyroidism Inflammatory and toxic neuropathy, unspecified Iron deficiency anemia, unspecified Lumbar spinal stenosis Macular degeneration Osteoarthritis Osteoporosis 01/25/2009 BMD 01/16/09, No sig change from baseline. Proliferative diabetic retinopathy, both eyes ([facility]) inactive Renal failure, unspecified Dr. Gandhi Thrombocytopenia, unspecified ([facility]) Type II 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, not stated as uncontrolled(250.60) Ulcer of other part of foot Previous Surgical History PAST SURGICAL HISTORY Procedure Laterality Date APPENDECTOMY CHOLECYSTECTOMY Cholecystectomy COLONOSCOPY FLX DX W/COLLJ SPEC WHEN PFRMD 06/25/2001 Colonoscopy COLONOSCOPY FLX DX W/COLLJ SPEC WHEN PFRMD 05/16/2016 Colonoscopy DILATION AND CURETTAGE DXAND/THER NONOBSTETRIC Dilation AND curettage ENDOMETRIAL BX W/WO ENDOCERVIX BX W/O DILAT SPX 2016 x2. benign and then repeat was poor specimen. ESOPHAGOGASTRODUODENOSCOPY TRANSORAL DIAGNOSTIC 06/25/2001 EGD PAST SURGICAL HISTORY OF LUMBAR LAMINECTOMY-L3,L4,L5 PAST SURGICAL HISTORY OF ECHOCARDIOGRAM TONSILLECTOMY PRIMARY/SECONDARY Tonsillectomy Family History FAMILY HISTORY Problem Relation Age of Onset Cancer Mother Heart Father Hypertension Father Stroke Father Breast Cancer Maternal Aunt Cancer Maternal Uncle LUNG CANCER X 2 Stroke Sister Patient Allergies ALLERGIES Allergen Reactions Ivp Dye [Iodine] Anaphylaxis Prinzide [Lisinopri* Cough Faby Inhibitors Cough cough Mucinex [Guaifenesi* Unknown Neomycin Rash Current Medications Current Outpatient Medications on File Prior to Visit Medication Sig albuterol (PROVENTIL) 2.5 mg /3 mL (0.083 %) nebulizer solution Use 3 mL via nebulizer every 4 hours as needed for wheezing/shortness of breath. Use over 5-15minutes. doxycycline (VIBRA-TABS) 100 mg tablet Take 1 tablet by mouth two times a day for 10 days. benzonatate (TESSALON PERLE) 100 mg capsule Take 1 capsule by mouth three times a day as needed for up to 10 days. furosemide (LASIX) 40 mg tablet Take 1 tablet by mouth once daily. levothyroxine (SYNTHROID) 100 mcg tablet Take 1 tablet by mouth daily before breakfast. insulin glargine (LANTUS SOLOSTAR U-100 INSULIN) 100 unit/mL (3 mL) Take 4 units daily (box of 5 pens). folic acid 1 mg tablet Take 1 tablet by mouth two times a day. losartan (COZAAR) 50 mg tablet Take 1 tablet by mouth once daily. Per Dr. Gandhi, nephrology Biotin 10,000 mcg cap Take 5,000 mcg by mouth. cimetidine (TAGAMET) 400 mg tablet Take 400 mg by mouth as needed (upset stomach). Blood-Glucose Meter (TRUE METRIX AIR GLUCOSE METER) Check blood sugar four times a day blood sugar diagnostic (TRUE METRIX GLUCOSE TEST STRIP) test strip Use as instructed Insulin Reddick, Disposable, (NOVOFINE 32) 32 gauge x 1/4 Inject 1 Each subcutaneously four times daily. Use one needle with each insulin dose (4 times per day) Dx: 250.00 Insulin: yes flash glucose scanning reader (FREESTYLE HALIMA 1 (more content not included)... [facility] 03-05-2023 History of Presen t illness Narrative Chief Complaint Patient presents with: ER F/U: 03/01/2023 - cough, sob Currently on a ATB HPI Shanice Patel is a 88 year old female who presents here today for Above Complaints. Accompanied today by caregiver. Patient evaluated at [facility] ED on 03/01 after we started her on doxycycline for pneumonia on 02/28 and had worsening SOB at home. Given albuterol in the ER for SOB and wheezing. CXR negative for infection, but did show right pleural opacity, so CT chest w/o contrast was ordered. CT showed healed rib fractures on right with scarring. No mass found. Did not fibrosis without pneumonia. Noted swelling on her exam and was told to resume her lasix which she had not been taking. BNP there was 170. Discharged home without other change to regimen. Today, states that she continues to have productive cough, but SOB has improved. Taking doxycycline as prescribed and has restarted her lasix. Caregiver states that she has had a good week with occasional coughing spells. Has not tried the tessalon we prescribed yet. Using nebulized albuterol once per day which does help with cough. Needs refill on her Percocet today. States that it is working well to control her lower back pain and helps her with ADLs and ambulation. Past medical history, appointments, medications, allergies reviewed. Previous Medical History PAST MEDICAL HISTORY Diagnosis Date Anemia Bilateral lower extremity edema CHF (congestive heart failure) ([facility]) [facility]. Chronic diastolic heart failure Chronic lower back pain DIVERTICULOSIS Essential hypertension, benign Gangrene ([facility]) 03/22/2005 Gastric ulcer, unspecified as acute or chronic, without mention of hemorrhage, perforation, or obstruction Gout Hypothyroidism Inflammatory and toxic neuropathy, unspecified Iron deficiency anemia, unspecified Lumbar spinal stenosis Macular degeneration Osteoarthritis Osteoporosis 01/25/2009 BMD 01/16/09, No sig change from baseline. Proliferative diabetic retinopathy, both eyes ([facility]) inactive Renal failure, unspecified Dr. Gandhi Thrombocytopenia, unspecified ([facility]) Type II 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, not stated as uncontrolled(250.60) Ulcer of other part of foot Previous Surgical History PAST SURGICAL HISTORY Procedure Laterality Date APPENDECTOMY CHOLECYSTECTOMY Cholecystectomy COLONOSCOPY FLX DX W/COLLJ SPEC WHEN PFRMD 06/25/2001 Colonoscopy COLONOSCOPY FLX DX W/COLLJ SPEC WHEN PFRMD 05/16/2016 Colonoscopy DILATION & CURETTAGE DX&/THER NONOBSTETRIC Dilation & curettage ENDOMETRIAL BX W/WO ENDOCERVIX BX W/O DILAT SPX 2016 x2. benign and then repeat was poor specimen. ESOPHAGOGASTRODUODENOSCOPY TRANSORAL DIAGNOSTIC 06/25/2001 EGD PAST SURGICAL HISTORY OF LUMBAR LAMINECTOMY-L3,L4,L5 PAST SURGICAL HISTORY OF ECHOCARDIOGRAM TONSILLECTOMY PRIMARY/SECONDARY <AGE 12 Tonsillectomy Family History FAMILY HISTORY Problem Relation Age of Onset Cancer Mother Heart Father Hypertension Father Stroke Father Breast Cancer Maternal Aunt Cancer Maternal Uncle LUNG CANCER X 2 Stroke Sister Patient Allergies ALLERGIES Allergen Reactions Ivp Dye [Iodine] Anaphylaxis Prinzide [Lisinopri* Cough Faby Inhibitors Cough cough Mucinex [Guaifenesi* Unknown Neomycin Rash Current Medications Current Outpatient Medications on File Prior to Visit Medication Sig albuterol (PROVENTIL) 2.5 mg /3 mL (0.083 %) nebulizer solution Use 3 mL via nebulizer every 4 hours as needed for wheezing/shortness of breath. Use over 5-15minutes. doxycycline (VIBRA-TABS) 100 mg tablet Take 1 tablet by mouth two times a day for 10 days. benzonatate (TESSALON PERLE) 100 mg capsule Take 1 capsule by mouth three times a day as needed for up to 10 days. furosemide (LASIX) 40 mg tablet Take 1 tablet by mouth once daily. levothyroxine (SYNTHROID) 100 mcg tablet Take 1 tablet by mouth daily before breakfast. insulin glargine (LANTUS SOLOSTAR U-100 INSULIN) 100 unit/mL (3 mL) Take 4 units daily (box of 5 pens). folic acid 1 mg tablet Take 1 tablet by mouth two times a day. losartan (COZAAR) 50 mg tablet Take 1 tablet by mouth once daily. Per Dr. Gandhi, nephrology Biotin 10,000 mcg cap Take 5,000 mcg by mouth. cimetidine (TAGAMET) 400 mg tablet Take 400 mg by mouth as needed (upset stomach). Blood-Glucose Meter (TRUE METRIX AIR GLUCOSE METER) Check blood sugar four times a day blood sugar diagnostic (TRUE METRIX GLUCOSE TEST STRIP) test strip Use as instructed Insulin Reddick, Disposable, (NOVOFINE 32) 32 gauge x 1/4 Inject 1 Each subcutaneously four times daily. Use one needle with each insulin dose (4 times per day) Dx: 250.00 Insulin: yes flash glucose scanning reader (StorSimpleSTYLE HALIMA 14 DAY READER) 1 Device four times daily. allopurinol (ZYLOPRIM) 100 mg tablet Take 1 tablet by mouth once daily. IFEREX 150 150 mg iron capsule Take 1 capsule by mouth every other day. meclizine (ANTIVERT) 12.5 mg tab Take 1 tablet by mouth twice daily as needed (dizziness). montelukast (SINGULAIR) 10 mg tablet Take 1 tablet by mouth daily at bedtime. flash glucose sensor (FREESTYLE HALIMA 14 DAY SENSOR) kit 1 Each every 2 weeks. insulin aspart U-100 (NOVOLOG FLEXPEN U-100 INSULIN) 100 unit/mL (3 mL) Inject subcutaneously. WITH FIRST BITE OF FOOD, 4 UNITS W/BREAKFAST, 4 UNITS W/LUNCH, 4 UNITS W/DINNER (BOX OF 5 CARTRIDGES) azelastine (ASTELIN, ASTEPRO) 0.1% nasal spray Use 2 Sprays in each nostril twice daily. ondansetron orally disintegrating (ZOFRAN ODT) 4 mg disintegrating tablet Take 1 tablet by mouth every 8 hours As Needed for nausea and vomiting ergocalciferol 50,000 unit capsule (VITAMIN D2, DRISDOL) Take 1 capsule by mouth once every month. TAKES ON FIRST DAY OF MONTH flash glucose scanning reader (StorSimpleSTYLE HALIMA 14 DAY READER) Checks blood sugar 4 times daily polyethylene glycol 3350 (MIRALAX, GLYCOLAX) 17 gram packet Take 1 Packet by mouth twice daily as needed (constipation). senna (SENNA) 8.6 mg tab Take 1 tablet by mouth twice daily as needed (constipation). flash glucose sensor (StorSimpleSTYLE HALIMA 10 DAY SENSOR) kit 1 Each four times daily. COMPOUNDED PRESCRIPTION Zero G boot heel protector docusate sodium (COLACE) 100 mg capsule Take 1 capsule by mouth twice daily. Compression Knee Highs KNEE HIGH COMPRESSION STOCKINGS with zippers 30-40 MM. DX: I83.12 I83.11 I87.303 aspirin, enteric coated (ASPIRIN, ENTERIC COATED) 81 mg EC tablet Take 1 tablet by mouth twice daily. ped multivit #43-iron fumarate (FLINTSTONES COMPLETE, IRON,) 18 mg iron chew Take 1 tablet by mouth once daily. oxyCODONE-acetaminophen (PERCOCET) 10-325 mg tablet Take 1 tablet by mouth every 8 hours as needed for pain for up to 30 days. amLODIPine (NORVASC) 10 mg tablet Take 1 tablet by mouth once daily. (Patient not taking: Reported on 12/04/2022) No current facility-administered medications on file prior to visit. Social History Social History Tobacco Use Smoking status: Never Smokeless tobacco: Never Vaping Use Vaping Use: Never used Substance Use Topics Alcohol use: No Drug use: No Review of Symptoms REVIEW OF SYSTEMS GENERAL: No weight loss, malaise or fevers RESPIRATORY: See HPI CARDIOVASCULAR: Negative for chest pain, leg swelling, hypertension, CHF or palpitations GI: No nausea, vomiting, or diarrhea SKIN: Negative for lesions, rash, and itching EXAM: BP 140/70 Pulse 73 Resp 20 SpO2 97% General Appearance: Well appearing, alert, in no acute distress, well-hydrated, well nourished.. Skin: Skin color, texture, turgor normal, no suspicious rashes or lesions. Lungs: Lungs clear to auscultation. No wheezing, rhonchi, rales.. Heart: RRR without murmur, gallop, or rubs. No ectopy. Abdomen: Normal abdominal exam, Abdomen soft, non-tender. Bowel sounds normal. No masses, organomegaly. Extremities: No deformities, edema, skin discoloration, clubbing or cyanosis. Good capillary refill. Health Maintenance List Hepatitis B Vaccine(1 of 3 - Risk 3-dose series) Never done RSV Vaccine(1 - 1-dose 60+ series) Never done Dilated Retinal Exam due on 12/22/2021 Advance Directive Discussion Never done Depression Assessment Never done Diabetic Foot Exam due on 11/19/2022 Shingrix Vaccine(2 of 2) due on 06/25/2023 Covid-19 Vaccine(1) due on 06/25/2023 HbA1C due on 06/30/2023 Urine Albumin:Creatinine Ratio due on 12/31/2023 LDL Cholesterol due on 12/31/2023 DTaP,Tdap,Td Vaccine(5 - Td or Tdap) due on 03/18/2028 Bone Density Screening Completed Influenza Vaccine Completed Pneumococcal Vaccine: 65+ Completed ASSESSMENT/PLAN: 1. SOB (shortness of breath) - ICD9: 786.05, ICD10: R06.02 (primary diagnosis) Symptoms improving on current regimen. Discussed with patient and caregiver that with negative CXR and CT for pneumonia, can finish out day 5 of doxycycline and discontinue. May use tessalon as well as OTC medications as discussed for cough and congestion. Red flags for re-assessment reviewed with patient in detail. 2. Productive cough - ICD9: 786.2, ICD10: R05.8 See above. 3. Lumbar radiculopathy - ICD9: 724.4, ICD10: M54.16 Controlled on current dose of Percocet. PDMP website checked and validated. All prescriptions have been APPROPRIATELY filled. No suspicious activity was identified. 03/06/2023 by Rylee Henson MD - OXYCODONE-ACETAMINOPHEN 10 MG-325 MG TABLET I spent a total of 30 minutes on the date of the service which included preparing to see the patient, [id number] patient care, completing clinical documentation, obtaining and/or reviewing separately obtained history, performing a medically appropriate examination, counseling and educating the patient/family/caregiver, ordering medications, tests, or procedures, communicating with other HCPs (not separately reported), and independently interpreting results (not separately reported). Rylee Henson MD documented in this encounter [facility] 03-03-2023 Miscellaneous Notes PCP reviewed ER summary and recommending ER follow up visit in 3-5 days. Contacted patient's daughter and advised of this and his message regarding follow up with cardio for the enlarged heart. She voiced understanding and will have patient/caregiver call and schedule follow up visit. Not seeing ER report on my desk yet. Will review and make recommendations on follow up. F/u with cardiology for enlarged heart as per recommendations at their last OV. Pt daughter Julia notified. She stated that pt was taken to [facility] ER due to difficulty breathing. Chest xray and CT scan. Results printed and on providers desk. Daughter asking if anything further needs done with enlarged heart. Follows with Cardio at [facility]. Paty Jones Ma Chest xray shows right upper lung density with recommendation for CT chest to further evaluate. Enlarged heart also noted. No pneumonia noted on this imaging. If cough symptoms improving with abx, may finish abx as prescribed. documented in this encounter [facility] 02-28-2023 Miscellaneous Notes Chyna from [facility] calls and reports albuterol nebulizer solution was denied by insurance. Denial information will be faxed to provider. Not covered due to patient not being in senior living facility. May be covered under part A or B. Deisy Will RN documented in this encounter [facility] 02-28-2023 Note HNO ID: [id number] Author: Gaby Bosch RT(R) Service: ? Author Type: Access Database Developer Type: Progress Notes Filed: 02/28/2023 10:24 AM Note Text: Radiology Service Progress Note PATIENT NAME: Shanice Patel DATE OF SERVICE: February 28, 2023 TIME: 10:24 AM PATIENT IDENTITY VERIFICATION COMPLETED USING TWO (2) IDENTIFIERS: Name and Date of confirmed by patient verbally. FALL SCREENING: Has the patient had 2 falls in the last year or 1 fall with injury or currently using an Ambulatory Assistive Device (Walker, Cane, Wheelchair, Crutches, etc.)? Yes, Patient High Risk for Falls What interventions were put in place to prevent falls during this visit? Offered Assistance with Transfers/Clothing, Instructed Patient to Remain Seated (Not on Exam Table) Until Exam, and Increased Observations by Caregivers PATIENT GENDER DATA: Female. status: : No status: NO. PATIENT RELEVANT IMPLANT DATA REVIEWED: Yes RADIOLOGY DEPARTMENT: General X-ray: Exam(s) Completed: Chest X-Ray PERIPHERAL IV DATA: Not applicable SIGNED BY: RT Esperanza(R) February 28, 2023 10:24 AM [facility] 02-28-2023 Note HNO ID: [id number] Author: Rylee Henson MD Service: ? Author Type: Physician Type: Progress Notes Filed: 03/01/2023 4:17 PM Note Text: Chief Complaint Patient presents with: URI: Patient didn't test- family had tested themselves and negative 2 weeks ago. HPI Shanice Patel is a 88 year old female who presents here today for Above Complaints. Accompanied today by daughter. Patient complaining of productive cough with yellow sputum which is now clear x 9 days. Associated with chest congestion, wheezing, occasional SOB, nasal congestion, rhinorrhea. Treating with Evelin SMITH OTC, using humidifier at home, and tessalon perles at night. Denies fever/chills, sore throat, headache, myalgias, ear pain/fullness, sinus pain/pressure, nausea, vomiting diarrhea. Past medical history, appointments, medications, allergies reviewed. Previous Medical History PAST MEDICAL HISTORY Diagnosis Date Anemia Bilateral lower extremity edema CHF (congestive heart failure) (FORM[facility]) [facility]. Chronic diastolic heart failure Chronic lower back pain DIVERTICULOSIS Essential hypertension, benign Gangrene ([facility]) 03/22/2005 Gastric ulcer, unspecified as acute or chronic, without mention of hemorrhage, perforation, or obstruction Gout Hypothyroidism Inflammatory and toxic neuropathy, unspecified Iron deficiency anemia, unspecified Lumbar spinal stenosis Macular degeneration Osteoarthritis Osteoporosis 01/25/2009 BMD 01/16/09, No sig change from baseline. Proliferative diabetic retinopathy, both eyes ([facility]) inactive Renal failure, unspecified Dr. Gandhi Thrombocytopenia, unspecified ([facility]) Type II 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, not stated as uncontrolled(250.60) Ulcer of other part of foot Previous Surgical History PAST SURGICAL HISTORY Procedure Laterality Date APPENDECTOMY CHOLECYSTECTOMY Cholecystectomy COLONOSCOPY FLX DX W/COLLJ SPEC WHEN PFRMD 06/25/2001 Colonoscopy COLONOSCOPY FLX DX W/COLLJ SPEC WHEN PFRMD 05/16/2016 Colonoscopy DILATION AND CURETTAGE DXAND/THER NONOBSTETRIC Dilation AND curettage ENDOMETRIAL BX W/WO ENDOCERVIX BX W/O DILAT SPX 2016 x2. benign and then repeat was poor specimen. ESOPHAGOGASTRODUODENOSCOPY TRANSORAL DIAGNOSTIC 06/25/2001 EGD PAST SURGICAL HISTORY OF LUMBAR LAMINECTOMY-L3,L4,L5 PAST SURGICAL HISTORY OF ECHOCARDIOGRAM TONSILLECTOMY PRIMARY/SECONDARY Tonsillectomy Family History FAMILY HISTORY Problem Relation Age of Onset Cancer Mother Heart Father Hypertension Father Stroke Father Breast Cancer Maternal Aunt Cancer Maternal Uncle LUNG CANCER X 2 Stroke Sister Patient Allergies ALLERGIES Allergen Reactions Ivp Dye [Iodine] Anaphylaxis Prinzide [Lisinopri* Cough Faby Inhibitors Cough cough Mucinex [Guaifenesi* Unknown Neomycin Rash Current Medications Current Outpatient Medications on File Prior to Visit Medication Sig oxyCODONE-acetaminophen (PERCOCET) 10-325 mg tablet Take 1 tablet by mouth every 8 hours as needed for pain for up to 30 days. furosemide (LASIX) 40 mg tablet Take 1 tablet by mouth once daily. levothyroxine (SYNTHROID) 100 mcg tablet Take 1 tablet by mouth daily before breakfast. insulin glargine (LANTUS SOLOSTAR U-100 INSULIN) 100 unit/mL (3 mL) Take 4 units daily (box of 5 pens). folic acid 1 mg tablet Take 1 tablet by mouth two times a day. losartan (COZAAR) 50 mg tablet Take 1 tablet by mouth once daily. Per Dr. Gandhi, nephrology Biotin 10,000 mcg cap Take 5,000 mcg by mouth. cimetidine (TAGAMET) 400 mg tablet Take 400 mg by mouth as needed (upset stomach). Blood-Glucose Meter (TRUE METRIX AIR GLUCOSE METER) Check blood sugar four times a day blood sugar diagnostic (TRUE METRIX GLUCOSE TEST STRIP) test strip Use as instructed Insulin Reddick, Disposable, (NOVOFINE 32) 32 gauge x 1/4 Inject 1 Each subcutaneously four times daily. Use one needle with each insulin dose (4 times per day) Dx: 250.00 Insulin: yes flash glucose scanning reader (FREESTYLE HALIMA 14 DAY READER) 1 Device four times daily. allopurinol (ZYLOPRIM) 100 mg tablet Take 1 tablet by mouth once daily. IFEREX 150 150 mg iron capsule Take 1 capsule by mouth every other day. meclizine (ANTIVERT) 12.5 mg tab Take 1 tablet by mouth twice daily as needed (dizziness). montelukast (SINGULAIR) 10 mg tablet Take 1 tablet by mouth daily at bedtime. flash glucose sensor (FREESTYLE HALIMA 14 DAY SENSOR) kit 1 Each every 2 weeks. insulin aspart U-100 (NOVOLOG FLEXPEN U-100 INSULIN) 100 unit/mL (3 mL) Inject subcutaneously. WITH FIRST BITE OF FOOD, 4 UNITS W/BREAKFAST, 4 UNITS W/LUNCH, 4 UNITS W/DINNER (BOX OF 5 CARTRIDGES) azelastine (ASTELIN, ASTEPRO) 0.1% nasal spray Use 2 Sprays in each nostril twice daily. ondansetron orally disintegrating (ZOFRAN ODT) 4 mg disintegrating tablet Take 1 tablet by mouth every 8 hours As Needed for n (more content not included)... [facility] 02-28-2023 History of Presen t illness Narrative Chief Complaint Patient presents with: URI: Patient didn't test- family had tested themselves and negative 2 weeks ago. HPI Shanice Patel is a 88 year old female who presents here today for Above Complaints. Accompanied today by daughter. Patient complaining of productive cough with yellow sputum which is now clear x 9 days. Associated with chest congestion, wheezing, occasional SOB, nasal congestion, rhinorrhea. Treating with Tussin CF OTC, using humidifier at home, and tessalon perles at night. Denies fever/chills, sore throat, headache, myalgias, ear pain/fullness, sinus pain/pressure, nausea, vomiting diarrhea. Past medical history, appointments, medications, allergies reviewed. Previous Medical History PAST MEDICAL HISTORY Diagnosis Date Anemia Bilateral lower extremity edema CHF (congestive heart failure) ([facility]) [facility]. Chronic diastolic heart failure Chronic lower back pain DIVERTICULOSIS Essential hypertension, benign Gangrene ([facility]) 03/22/2005 Gastric ulcer, unspecified as acute or chronic, without mention of hemorrhage, perforation, or obstruction Gout Hypothyroidism Inflammatory and toxic neuropathy, unspecified Iron deficiency anemia, unspecified Lumbar spinal stenosis Macular degeneration Osteoarthritis Osteoporosis 01/25/2009 BMD 01/16/09, No sig change from baseline. Proliferative diabetic retinopathy, both eyes ([facility]) inactive Renal failure, unspecified Dr. Gandhi Thrombocytopenia, unspecified ([facility]) Type II 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, not stated as uncontrolled(250.60) Ulcer of other part of foot Previous Surgical History PAST SURGICAL HISTORY Procedure Laterality Date APPENDECTOMY CHOLECYSTECTOMY Cholecystectomy COLONOSCOPY FLX DX W/COLLJ SPEC WHEN PFRMD 06/25/2001 Colonoscopy COLONOSCOPY FLX DX W/COLLJ SPEC WHEN PFRMD 05/16/2016 Colonoscopy DILATION & CURETTAGE DX&/THER NONOBSTETRIC Dilation & curettage ENDOMETRIAL BX W/WO ENDOCERVIX BX W/O DILAT SPX 2016 x2. benign and then repeat was poor specimen. ESOPHAGOGASTRODUODENOSCOPY TRANSORAL DIAGNOSTIC 06/25/2001 EGD PAST SURGICAL HISTORY OF LUMBAR LAMINECTOMY-L3,L4,L5 PAST SURGICAL HISTORY OF ECHOCARDIOGRAM TONSILLECTOMY PRIMARY/SECONDARY <AGE 12 Tonsillectomy Family History FAMILY HISTORY Problem Relation Age of Onset Cancer Mother Heart Father Hypertension Father Stroke Father Breast Cancer Maternal Aunt Cancer Maternal Uncle LUNG CANCER X 2 Stroke Sister Patient Allergies ALLERGIES Allergen Reactions Ivp Dye [Iodine] Anaphylaxis Prinzide [Lisinopri* Cough Faby Inhibitors Cough cough Mucinex [Guaifenesi* Unknown Neomycin Rash Current Medications Current Outpatient Medications on File Prior to Visit Medication Sig oxyCODONE-acetaminophen (PERCOCET) 10-325 mg tablet Take 1 tablet by mouth every 8 hours as needed for pain for up to 30 days. furosemide (LASIX) 40 mg tablet Take 1 tablet by mouth once daily. levothyroxine (SYNTHROID) 100 mcg tablet Take 1 tablet by mouth daily before breakfast. insulin glargine (LANTUS SOLOSTAR U-100 INSULIN) 100 unit/mL (3 mL) Take 4 units daily (box of 5 pens). folic acid 1 mg tablet Take 1 tablet by mouth two times a day. losartan (COZAAR) 50 mg tablet Take 1 tablet by mouth once daily. Per Dr. Gandhi, nephrology Biotin 10,000 mcg cap Take 5,000 mcg by mouth. cimetidine (TAGAMET) 400 mg tablet Take 400 mg by mouth as needed (upset stomach). Blood-Glucose Meter (TRUE METRIX AIR GLUCOSE METER) Check blood sugar four times a day blood sugar diagnostic (TRUE METRIX GLUCOSE TEST STRIP) test strip Use as instructed Insulin Reddick, Disposable, (NOVOFINE 32) 32 gauge x 1/4 Inject 1 Each subcutaneously four times daily. Use one needle with each insulin dose (4 times per day) Dx: 250.00 Insulin: yes flash glucose scanning reader (StorSimpleSTYLE HALIMA 14 DAY READER) 1 Device four times daily. allopurinol (ZYLOPRIM) 100 mg tablet Take 1 tablet by mouth once daily. IFEREX 150 150 mg iron capsule Take 1 capsule by mouth every other day. meclizine (ANTIVERT) 12.5 mg tab Take 1 tablet by mouth twice daily as needed (dizziness). montelukast (SINGULAIR) 10 mg tablet Take 1 tablet by mouth daily at bedtime. flash glucose sensor (StorSimpleSTYLE HALIMA 14 DAY SENSOR) kit 1 Each every 2 weeks. insulin aspart U-100 (NOVOLOG FLEXPEN U-100 INSULIN) 100 unit/mL (3 mL) Inject subcutaneously. WITH FIRST BITE OF FOOD, 4 UNITS W/BREAKFAST, 4 UNITS W/LUNCH, 4 UNITS W/DINNER (BOX OF 5 CARTRIDGES) azelastine (ASTELIN, ASTEPRO) 0.1% nasal spray Use 2 Sprays in each nostril twice daily. ondansetron orally disintegrating (ZOFRAN ODT) 4 mg disintegrating tablet Take 1 tablet by mouth every 8 hours As Needed for nausea and vomiting ergocalciferol 50,000 unit capsule (VITAMIN D2, DRISDOL) Take 1 capsule by mouth once every month. TAKES ON FIRST DAY OF MONTH albuterol (PROVENTIL) 2.5 mg /3 mL (0.083 %) nebulizer solution Use 3 mL via nebulizer every 4 hours as needed for wheezing/shortness of breath. Use over 5-15minutes. flash glucose scanning reader (Entomo HALIMA 14 DAY READER) Checks blood sugar 4 times daily polyethylene glycol 3350 (MIRALAX, GLYCOLAX) 17 gram packet Take 1 Packet by mouth twice daily as needed (constipation). senna (SENNA) 8.6 mg tab Take 1 tablet by mouth twice daily as needed (constipation). flash glucose sensor (Entomo HALIMA 10 DAY SENSOR) kit 1 Each four times daily. COMPOUNDED PRESCRIPTION Zero G boot heel protector docusate sodium (COLACE) 100 mg capsule Take 1 capsule by mouth twice daily. Compression Knee Highs KNEE HIGH COMPRESSION STOCKINGS with zippers 30-40 MM. DX: I83.12 I83.11 I87.303 aspirin, enteric coated (ASPIRIN, ENTERIC COATED) 81 mg EC tablet Take 1 tablet by mouth twice daily. ped multivit #43-iron fumarate (FLINTSTONES COMPLETE, IRON,) 18 mg iron chew Take 1 tablet by mouth once daily. amLODIPine (NORVASC) 10 mg tablet Take 1 tablet by mouth once daily. (Patient not taking: Reported on 12/04/2022) No current facility-administered medications on file prior to visit. Social History Social History Tobacco Use Smoking status: Never Smokeless tobacco: Never Vaping Use Vaping Use: Never used Substance Use Topics Alcohol use: No Drug use: No Review of Symptoms REVIEW OF SYSTEMS See HPI EXAM: BP 128/64 Pulse 71 Temp 36.8 C (98.2 F) SpO2 95% General Appearance: Ill appearing. Non toxic. Occasional wet sounding cough. Talking in full sentences without SOB. Skin: Skin color, texture, turgor normal, no suspicious rashes or lesions. Head: Normocephalic, no masses, lesions, tenderness or abnormalities. Eyes: Anicteric sclera. Pupils are equally round and reactive to light. Extraocular movements are intact. . Ears: External ears normal, canals clear. Nose/Sinuses: Nares normal, septum midline, mucosa normal, no drainage or sinus tenderness. Oropharynx: Lips, mucosa, and tongue normal, teeth and gums normal, oropharynx normal. Neck: Supple, no adenopathy; thyroid symmetric, normal size, no bruits. Lungs: decreased lung sounds in bases bilaterally. . Heart: RRR without murmur, gallop, or rubs. No ectopy. Health Maintenance List Hepatitis B Vaccine(1 of 3 - Risk 3-dose series) Never done RSV Vaccine(1 - 1-dose 60+ series) Never done Dilated Retinal Exam due on 12/22/2021 Advance Directive Discussion Never done Depression Assessment Never done Diabetic Foot Exam due on 11/19/2022 Shingrix Vaccine(2 of 2) due on 06/25/2023 Covid-19 Vaccine(1) due on 06/25/2023 HbA1C due on 06/30/2023 Urine Albumin:Creatinine Ratio due on 12/31/2023 LDL Cholesterol due on 12/31/2023 DTaP,Tdap,Td Vaccine(5 - Td or Tdap) due on 03/18/2028 Bone Density Screening Completed Influenza Vaccine Completed Pneumococcal Vaccine: 65+ Completed ASSESSMENT/PLAN: 1. Viral URI with cough - ICD9: 465.9, ICD10: J06.9 (primary diagnosis) - Discussed viral etiology and rationale for treatment. - Symptomatic treatment with prn analgesia - Supportive care with fluids and rest - The patient may also use OTC cough and cold meds as needed. - Follow up in one week if symptoms persist or sooner if worsening of symptoms - XR CHEST 2V FRONTAL/LAT - ALBUTEROL SULFATE 2.5 MG/3 ML (0.083 %) SOLUTION FOR NEBULIZATION - NEBULIZER - BENZONATATE 100 MG CAPSULE 2. Productive cough - ICD9: 786.2, ICD10: R05.8 Obtain CXR to rule out cough with decreased lung sounds in the bases related to kyphosis. Start doxycycline as patient is high risk for infection. Red flags for re-assessment reviewed with patient in detail. - XR CHEST 2V FRONTAL/LAT - DOXYCYCLINE HYCLATE 100 MG TABLET - BENZONATATE 100 MG CAPSULE Rylee Henson MD documented in this encounter [facility] 02-14-2023 Note HNO ID: [id number] Author: Kati Auguste RDMS Service: ? Author Type: Clinical Laboratory Scientist Type: Progress Notes Filed: 02/14/2023 2:45 PM Note Text: Radiology Service Progress Note PATIENT NAME: Shanice Patel DATE OF SERVICE: February 14, 2023 TIME: 2:45 PM PATIENT IDENTITY VERIFICATION COMPLETED USING TWO (2) IDENTIFIERS: Name and Date of confirmed by patient verbally. FALL SCREENING: Has the patient had 2 falls in the last year or 1 fall with injury or currently using an Ambulatory Assistive Device (Walker, Cane, Wheelchair, Crutches, etc.)? No PATIENT GENDER DATA: Female. status: : No status: NO. PATIENT RELEVANT IMPLANT DATA REVIEWED: Not Applicable RADIOLOGY DEPARTMENT: Ultrasound PERIPHERAL IV DATA: Not applicable SIGNED BY: Kati Auguste RDMS RVT February 14, 2023 2:45 PM [facility] 02-14-2023 History of Presen t illness Narrative Radiology Service Progress Note PATIENT NAME: Shanice Patel DATE OF SERVICE: February 14, 2023 TIME: 2:45 PM PATIENT IDENTITY VERIFICATION COMPLETED USING TWO (2) IDENTIFIERS: Name and Date of confirmed by patient verbally. FALL SCREENING: Has the patient had 2 falls in the last year or 1 fall with injury or currently using an Ambulatory Assistive Device (Walker, Cane, Wheelchair, Crutches, etc.)? No PATIENT GENDER DATA: Female. status: : No status: NO. PATIENT RELEVANT IMPLANT DATA REVIEWED: Not Applicable RADIOLOGY DEPARTMENT: Ultrasound PERIPHERAL IV DATA: Not applicable SIGNED BY: Kati Auguste RDMS RVT February 14, 2023 2:45 PM documented in this encounter [facility] 02-13-2023 Miscellaneous Notes Patient's daughter notified. SHMUEL NARAYANAN RN Left message for patient to call office. Rohini James RN ----- Message from Felicia Wahl MD sent at 02/13/2023 3:10 PM EST ----- Notify patient/daughter of negative urine culture. documented in this encounter [facility] 02-12-2023 Note HNO ID: [id number] Author: Felicia Irwin MD Service: ? Author Type: Physician Type: Progress Notes Filed: 02/12/2023 3:14 PM Note Text: Baffle Installer offered: Patient declines. Shanice Patel is a 87 year old female who presents for concerns regarding persistent pain with urination. Patient states she gets a sharp pain near her bladder then she has the urgency to urinate. She states that when urinating she has pain. She denies any pain when urine touches the vaginal tissue. She denies any fevers or chills. She denies any visible blood in her urine. Patient states that she drinks approximately 3 to 5 cups of coffee per day, 1 large Gatorade per day and water. Patient reports was seen by her primary care physician twice for the same issue over the last 8 days and was treated with antibiotics with no improvement. Urine culture was negative. Patient reports no other concerns today. OB History No obstetric history on file. Staff Anesthetist History LMP: Postmenopausal Age at Menarche: Age at First : Age at Menopause: Staff Anesthetist History Comments: Sexual Activity: Yes; Male Contraception: No contraception data on record PAST MEDICAL HISTORY Diagnosis Date Anemia Bilateral lower extremity edema CHF (congestive heart failure) ([facility]) [facility]. Chronic diastolic heart failure Chronic lower back pain DIVERTICULOSIS Essential hypertension, benign Gangrene (HCC) 03/22/2005 Gastric ulcer, unspecified as acute or chronic, without mention of hemorrhage, perforation, or obstruction Gout Hypothyroidism Inflammatory and toxic neuropathy, unspecified Iron deficiency anemia, unspecified Lumbar spinal stenosis Macular degeneration Osteoarthritis Osteoporosis 01/25/2009 BMD 01/16/09, No sig change from baseline. Proliferative diabetic retinopathy, both eyes ([facility]) inactive Renal failure, unspecified Dr. Gandhi Thrombocytopenia, unspecified ([facility]) Type II 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, not stated as uncontrolled(250.60) Ulcer of other part of foot PAST SURGICAL HISTORY Procedure Laterality Date APPENDECTOMY CHOLECYSTECTOMY Cholecystectomy COLONOSCOPY FLX DX W/COLLJ SPEC WHEN PFRMD 06/25/2001 Colonoscopy COLONOSCOPY FLX DX W/COLLJ SPEC WHEN PFRMD 05/16/2016 Colonoscopy DILATION AND CURETTAGE DXAND/THER NONOBSTETRIC Dilation AND curettage ENDOMETRIAL BX W/WO ENDOCERVIX BX W/O DILAT SPX 2016 x2. benign and then repeat was poor specimen. ESOPHAGOGASTRODUODENOSCOPY TRANSORAL DIAGNOSTIC 06/25/2001 EGD PAST SURGICAL HISTORY OF LUMBAR LAMINECTOMY-L3,L4,L5 PAST SURGICAL HISTORY OF ECHOCARDIOGRAM TONSILLECTOMY PRIMARY/SECONDARY Tonsillectomy FAMILY HISTORY Problem Relation Age of Onset Cancer Mother Heart Father Hypertension Father Stroke Father Breast Cancer Maternal Aunt Cancer Maternal Uncle LUNG CANCER X 2 Stroke Sister Social History Tobacco Use Smoking status: Never Smokeless tobacco: Never Vaping Use Vaping Use: Never used Substance Use Topics Alcohol use: No Drug use: No Current Outpatient Medications Medication Sig oxyCODONE-acetaminophen (PERCOCET) 10-325 mg tablet Take 1 tablet by mouth every 8 hours as needed for pain for up to 30 days. furosemide (LASIX) 40 mg tablet Take 1 tablet by mouth once daily. levothyroxine (SYNTHROID) 100 mcg tablet Take 1 tablet by mouth daily before breakfast. insulin glargine (LANTUS SOLOSTAR U-100 INSULIN) 100 unit/mL (3 mL) Take 4 units daily (box of 5 pens). folic acid 1 mg tablet Take 1 tablet by mouth two times a day. losartan (COZAAR) 50 mg tablet Take 1 tablet by mouth once daily. Per Dr. Gandhi, nephrology Biotin 10,000 mcg cap Take 5,000 mcg by mouth. cimetidine (TAGAMET) 400 mg tablet Take 400 mg by mouth as needed (upset stomach). Blood-Glucose Meter (TRUE METRIX AIR GLUCOSE METER) Check blood sugar four times a day blood sugar diagnostic (TRUE METRIX GLUCOSE TEST STRIP) test strip Use as instructed Insulin Reddick, Disposable, (NOVOFINE 32) 32 gauge x 1/4 Inject 1 Each subcutaneously four times daily. Use one needle with each insulin dose (4 times per day) Dx: 250.00 Insulin: yes flash glucose scanning reader (FREESTYLE HALIMA 14 DAY READER) 1 Device four times daily. allopurinol (ZYLOPRIM) 100 mg tablet Take 1 tablet by mouth once daily. amLODIPine (NORVASC) 10 mg tablet Take 1 tablet by mouth once daily. (Patient not taking: Reported on 12/04/2022) IFEREX 150 150 mg iron capsule Take 1 capsule by mouth every other day. (Patient not taking: Reported on 12/04/2022) meclizine (ANTIVERT) 12.5 mg tab Take 1 tablet by mouth twice daily as needed (dizziness). montelukast (SINGULAIR) 10 mg tablet Take 1 tablet by mouth daily at bedtime. flash glucose sensor (FREESTYLE HALIMA 14 DAY SENSOR) kit 1 Each every 2 weeks. insulin aspart U-100 (NOVOLOG FLEXPEN U-100 INSULIN) 100 unit/mL (3 mL) Inject subcutaneou (more content not included)... [facility] 02-12-2023 History of Presen t illness Narrative Baffle Installer offered: Patient declines. Shanice Patel is a 87 year old female who presents for concerns regarding persistent pain with urination. Patient states she gets a sharp pain near her bladder then she has the urgency to urinate. She states that when urinating she has pain. She denies any pain when urine touches the vaginal tissue. She denies any fevers or chills. She denies any visible blood in her urine. Patient states that she drinks approximately 3 to 5 cups of coffee per day, 1 large Gatorade per day and water. Patient reports was seen by her primary care physician twice for the same issue over the last 8 days and was treated with antibiotics with no improvement. Urine culture was negative. Patient reports no other concerns today. OB History No obstetric history on file. Staff Anesthetist History LMP: Postmenopausal Age at Menarche: Age at First : Age at Menopause: Staff Anesthetist History Comments: Sexual Activity: Yes; Male Contraception: No contraception data on record PAST MEDICAL HISTORY Diagnosis Date Anemia Bilateral lower extremity edema CHF (congestive heart failure) ([facility]) [facility]. Chronic diastolic heart failure Chronic lower back pain DIVERTICULOSIS Essential hypertension, benign Gangrene ([facility]) 03/22/2005 Gastric ulcer, unspecified as acute or chronic, without mention of hemorrhage, perforation, or obstruction Gout Hypothyroidism Inflammatory and toxic neuropathy, unspecified Iron deficiency anemia, unspecified Lumbar spinal stenosis Macular degeneration Osteoarthritis Osteoporosis 01/25/2009 BMD 01/16/09, No sig change from baseline. Proliferative diabetic retinopathy, both eyes ([facility]) inactive Renal failure, unspecified Dr. Gandhi Thrombocytopenia, unspecified ([facility]) Type II 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, not stated as uncontrolled(250.60) Ulcer of other part of foot PAST SURGICAL HISTORY Procedure Laterality Date APPENDECTOMY CHOLECYSTECTOMY Cholecystectomy COLONOSCOPY FLX DX W/COLLJ SPEC WHEN PFRMD 06/25/2001 Colonoscopy COLONOSCOPY FLX DX W/COLLJ SPEC WHEN PFRMD 05/16/2016 Colonoscopy DILATION & CURETTAGE DX&/THER NONOBSTETRIC Dilation & curettage ENDOMETRIAL BX W/WO ENDOCERVIX BX W/O DILAT SPX 2016 x2. benign and then repeat was poor specimen. ESOPHAGOGASTRODUODENOSCOPY TRANSORAL DIAGNOSTIC 06/25/2001 EGD PAST SURGICAL HISTORY OF LUMBAR LAMINECTOMY-L3,L4,L5 PAST SURGICAL HISTORY OF ECHOCARDIOGRAM TONSILLECTOMY PRIMARY/SECONDARY <AGE 11 Tonsillectomy FAMILY HISTORY Problem Relation Age of Onset Cancer Mother Heart Father Hypertension Father Stroke Father Breast Cancer Maternal Aunt Cancer Maternal Uncle LUNG CANCER X 2 Stroke Sister Social History Tobacco Use Smoking status: Never Smokeless tobacco: Never Vaping Use Vaping Use: Never used Substance Use Topics Alcohol use: No Drug use: No Current Outpatient Medications Medication Sig oxyCODONE-acetaminophen (PERCOCET) 10-325 mg tablet Take 1 tablet by mouth every 8 hours as needed for pain for up to 30 days. furosemide (LASIX) 40 mg tablet Take 1 tablet by mouth once daily. levothyroxine (SYNTHROID) 100 mcg tablet Take 1 tablet by mouth daily before breakfast. insulin glargine (LANTUS SOLOSTAR U-100 INSULIN) 100 unit/mL (3 mL) Take 4 units daily (box of 5 pens). folic acid 1 mg tablet Take 1 tablet by mouth two times a day. losartan (COZAAR) 50 mg tablet Take 1 tablet by mouth once daily. Per Dr. Gandhi, nephrology Biotin 10,000 mcg cap Take 5,000 mcg by mouth. cimetidine (TAGAMET) 400 mg tablet Take 400 mg by mouth as needed (upset stomach). Blood-Glucose Meter (TRUE METRIX AIR GLUCOSE METER) Check blood sugar four times a day blood sugar diagnostic (TRUE METRIX GLUCOSE TEST STRIP) test strip Use as instructed Insulin Reddick, Disposable, (NOVOFINE 32) 32 gauge x 1/4 Inject 1 Each subcutaneously four times daily. Use one needle with each insulin dose (4 times per day) Dx: 250.00 Insulin: yes flash glucose scanning reader (FREESTYLE HALIMA 14 DAY READER) 1 Device four times daily. allopurinol (ZYLOPRIM) 100 mg tablet Take 1 tablet by mouth once daily. amLODIPine (NORVASC) 10 mg tablet Take 1 tablet by mouth once daily. (Patient not taking: Reported on 12/04/2022) IFEREX 150 150 mg iron capsule Take 1 capsule by mouth every other day. (Patient not taking: Reported on 12/04/2022) meclizine (ANTIVERT) 12.5 mg tab Take 1 tablet by mouth twice daily as needed (dizziness). montelukast (SINGULAIR) 10 mg tablet Take 1 tablet by mouth daily at bedtime. flash glucose sensor (FREESTYLE HALIMA 14 DAY SENSOR) kit 1 Each every 2 weeks. insulin aspart U-100 (NOVOLOG FLEXPEN U-100 INSULIN) 100 unit/mL (3 mL) Inject subcutaneously. WITH FIRST BITE OF FOOD, 4 UNITS W/BREAKFAST, 4 UNITS W/LUNCH, 4 UNITS W/DINNER (BOX OF 5 CARTRIDGES) azelastine (ASTELIN, ASTEPRO) 0.1% nasal spray Use 2 Sprays in each nostril twice daily. (Patient not taking: Reported on 10/02/2022) ondansetron orally disintegrating (ZOFRAN ODT) 4 mg disintegrating tablet Take 1 tablet by mouth every 8 hours As Needed for nausea and vomiting ergocalciferol 50,000 unit capsule (VITAMIN D2, DRISDOL) Take 1 capsule by mouth once every month. TAKES ON FIRST DAY OF MONTH (Patient not taking: Reported on 12/04/2022) albuterol (PROVENTIL) 2.5 mg /3 mL (0.083 %) nebulizer solution Use 3 mL via nebulizer every 4 hours as needed for wheezing/shortness of breath. Use over 5-15minutes. flash glucose scanning reader (FREESTYLE HALIMA 14 DAY READER) Checks blood sugar 4 times daily polyethylene glycol 3350 (MIRALAX, GLYCOLAX) 17 gram packet Take 1 Packet by mouth twice daily as needed (constipation). senna (SENNA) 8.6 mg tab Take 1 tablet by mouth twice daily as needed (constipation). flash glucose sensor (FREESTYLE HALIMA 10 DAY SENSOR) kit 1 Each four times daily. COMPOUNDED PRESCRIPTION Zero G boot heel protector docusate sodium (COLACE) 100 mg capsule Take 1 capsule by mouth twice daily. Compression Knee Highs KNEE HIGH COMPRESSION STOCKINGS with zippers 30-40 MM. DX: I83.12 I83.11 I87.303 aspirin, enteric coated (ASPIRIN, ENTERIC COATED) 81 mg EC tablet Take 1 tablet by mouth twice daily. ped multivit #43-iron fumarate (FLINTSTONES COMPLETE, IRON,) 18 mg iron chew Take 1 tablet by mouth once daily. No current facility-administered medications for this visit. Allergies As of Date: 02/12/2023 Allergen Noted Reaction IVP DYE [IODINE] 01/16/2005 Anaphylaxis PRINZIDE [LISINOPRIL-HYDROCHLOROT* 005 Cough FABY INHIBITORS 12/20/2014 Cough MUCINEX [GUAIFENESIN] 04/30/2022 Unknown NEOMYCIN 04/23/2006 Rash Fully Assessed 02/12/2023 REVIEW OF SYSTEMS Bladder: ++ dysuria and frequency.. Expanded ROS: no fever Allergies and current medication updated:Yes EXAM: BP 140/62 GENERAL: pleasant, female in no apparent distress HEENT: Normocephalic and atraumatic NECK: full range of motion ABDOMEN: mild discomfort at suprapubic area. PELVIC: external genitalia normal, normal Bartholin's glands, urethra, [place]'s glands, no vulvar lesions, physiologic discharge present, normal appearing perineal body and perianal region, atrophic changes BIMANUAL: uterus normal size, shape and consistency, no adnexal masses, and non-tender NEURO: alert and oriented x3,exam grossly non-focal Back: Tenderness at right CVA ASSESSMENT AND PLAN: Encounter Diagnosis ICD-10-CM 1. Dysuria R30.0 URINE CULTURE US KIDNEY/BLADDER MERISSA/TRICHOMONAS NAAT BACTERIAL VAGINOSIS NAAT 2. Hematuria, unspecified type R31.9 US KIDNEY/BLADDER 3. Right flank discomfort R10.9 US KIDNEY/BLADDER 4. Pelvic pain in female R10.2 MERISSA/TRICHOMONAS NAAT BACTERIAL VAGINOSIS NAAT 5. ?? Stones vs IC vs UTI reviewed. Will get renal ultrasound. Discussed cutting back on Coffee and tomato soup- as can make IC worse. Increase water intake. 6. BV/YEAST- r/o vaginal infection that could be mimicking symptoms reviewed/pelvic pain Medical Decision Making: Problems: Moderate: New problem with uncertain prognosis Data: Unique test(s) ordered: 3+ Medical Decision Making Level: 4 - Moderate Felicia Ramirez MD documented in this encounter [facility] 02-10-2023 Miscellaneous Notes Daughter called back and was given message below. They will check on this. Mayela Jordan LPN Called and left a voicemail for the Patient's daughters Julia and Dulce to call back and ask for a nurse to receive the providers message. We need to let them know the provider office has still not received the form from [employer] for the Pts Halima sensors. They will need to call [employer] and have them send them to Dr Henson's fax # [phone]. Deysi Borrego RN Pt called and and her caregiver is with her, and they are notified of providers message and instructions. They voice understanding. The caregiver takes Dr Henson's fax number to give [facility]. Deysi Borrego, RN I have not seen anything from them today. Can they re-fax order form? Pt called in asking if provider received from for her Halima sensors from [employer]. She said they are supposed to be faxing the forms directly to the providers office. Please call Pt back. documented in this encounter [facility] 02-07-2023 Miscellaneous Notes Phoned patient daughter Julia and went over results from Chandrika Almonte FAILURE ANALYSIS ENGINEER with understanding. Daughter said Shanice is having pain and voiding every 15 minutes. Aware FAILURE ANALYSIS ENGINEER is out of office Friday afternoon. Daughter is contacting mother [facility] Dr to see what she wants done. ----- Message from Chandrika Almonte APRN.ELECTRONIC REPAIR TROUBLESHOOTER sent at 02/07/2023 6:31 AM EDT ----- Urine does not show bacterial infection. Chandrika Almonte APRN.ELECTRONIC REPAIR TROUBLESHOOTER documented in this encounter [facility] 02-05-2023 Note HNO ID: [id number] Author: Chandrika Almonte APRN.SPIKE Service: ? Author Type: Nurse Practitioner Type: Progress Notes Filed: 02/05/2023 11:52 AM Note Text: 02/05/2023 Patient presents with: Urinary Frequency: Started last week. Patient states it astorga when she pees and is painful. SUBJECTIVE: This is a 87 year old, accompanied by caregiver, that is here today for Above Complaints. Urinary frequency that started a couple of weeks ago. Reports having burning pain with uriantion. Caregiver reports family gave her AZO a couple of times. Patient reports AZO did help some. Denies fevers, chills, abdominal/back pain, nausea, vomiting, constipation, urinary urgency or hematuria. Did have urine completed two days ago and showed trace leuk esterase She would like me to look at her hernia because she thinks it is larger Component Latest Ref Rng AND Units 02/03/2023 02/05/2023 Color Yellow Yellow Clarity Clear Clear Glucose, Urine Negative Negative Bilirubin, Urine Negative Negative Ketones, Urine Negative Negative Specific [place], Ur 1.005 - 1.030 1.007 Hemoglobin/Blood,Ur Negative Negative pH, Urine <8.5 6.5 Protein, Urine Negative Negative Urobilinogen 0.2-1.0 EU/dL 0.2 EU/dL Nitrites Negative Negative Leukest Negative Trace (A) WBC, Urine 0-5 /HPF 0-5 /HPF RBC, Urine 0-2 /HPF 0-2 /HPF Bacteria Negative /HPF Negative Epithelial Cells /HPF None Seen Hyaline Cast 0 /LPF 0 /LPF GLUCOSE UA (POCT) Negative mg/dL Negative BILIRUBIN UA (POCT) Negative Negative KETONE UA (POCT) Negative mg/dL Negative SPECIFIC GRAVITY UA (POCT) 1.005 - 1.030 1.010 HEMOGLOBIN/BLOOD UA (POCT) Negative Trace-intact (A) PH UA (POCT) 4.5 - 8.0 6.0 PROTEIN UA (POCT) Negative mg/dL Negative UROBILINOGEN UA (POCT) Normal E.U./dL 0.2 NITRITE UA (POCT) Negative Negative LEUKOCYTES UA (POCT) Negative Small (A) COLOR UA (POCT) Yellow CLARITY UA (POCT) Cloudy PAST MEDICAL HISTORY Diagnosis Date Anemia Bilateral lower extremity edema CHF (congestive heart failure) ([facility]) [facility]. Chronic diastolic heart failure Chronic lower back pain DIVERTICULOSIS Essential hypertension, benign Gangrene ([facility]) 03/22/2005 Gastric ulcer, unspecified as acute or chronic, without mention of hemorrhage, perforation, or obstruction Gout Hypothyroidism Inflammatory and toxic neuropathy, unspecified Iron deficiency anemia, unspecified Lumbar spinal stenosis Macular degeneration Osteoarthritis Osteoporosis 01/25/2009 BMD 01/16/09, No sig change from baseline. Proliferative diabetic retinopathy, both eyes ([facility]) inactive Renal failure, unspecified Dr. Gandhi Thrombocytopenia, unspecified (HCC) Type II 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, not stated as uncontrolled(250.60) Ulcer of other part of foot ALLERGIES Ivp Dye [Iodine], Prinzide [Lisinopril-Hydrochlorothiazide] , Faby Inhibitors, Mucinex [Guaifenesin], and Neomycin MEDICATIONS Current Outpatient Medications Medication Sig oxyCODONE-acetaminophen (PERCOCET) 10-325 mg tablet Take 1 tablet by mouth every 8 hours as needed for pain for up to 30 days. furosemide (LASIX) 40 mg tablet Take 1 tablet by mouth once daily. levothyroxine (SYNTHROID) 100 mcg tablet Take 1 tablet by mouth daily before breakfast. insulin glargine (LANTUS SOLOSTAR U-100 INSULIN) 100 unit/mL (3 mL) Take 4 units daily (box of 5 pens). folic acid 1 mg tablet Take 1 tablet by mouth two times a day. losartan (COZAAR) 50 mg tablet Take 1 tablet by mouth once daily. Per Dr. Gandhi, nephrology Biotin 10,000 mcg cap Take 5,000 mcg by mouth. cimetidine (TAGAMET) 400 mg tablet Take 400 mg by mouth as needed (upset stomach). Blood-Glucose Meter (TRUE METRIX AIR GLUCOSE METER) Check blood sugar four times a day blood sugar diagnostic (TRUE METRIX GLUCOSE TEST STRIP) test strip Use as instructed Insulin Reddick, Disposable, (NOVOFINE 32) 32 gauge x 1/4 Inject 1 Each subcutaneously four times daily. Use one needle with each insulin dose (4 times per day) Dx: 250.00 Insulin: yes flash glucose scanning reader (FREESTYLE HALIMA 14 DAY READER) 1 Device four times daily. allopurinol (ZYLOPRIM) 100 mg tablet Take 1 tablet by mouth once daily. amLODIPine (NORVASC) 10 mg tablet Take 1 tablet by mouth once daily. (Patient not taking: Reported on 12/04/2022) IFEREX 150 150 mg iron capsule Take 1 capsule by mouth every other day. (Patient not taking: Reported on 12/04/2022) meclizine (ANTIVERT) 12.5 mg tab Take 1 tablet by mouth twice daily as needed (dizziness). montelukast (SINGULAIR) 10 mg tablet Take 1 tablet by mouth daily at bedtime. flash glucose sensor (FREESTYLE HALIMA 14 DAY SENSOR) kit 1 Each every 2 weeks. insulin aspart U-100 (NOVOLOG FLEXPEN U-100 INSULIN) 100 unit/mL (3 mL) Inject subcutaneously. WITH FIRST BITE OF FOOD, 4 UNITS W/BREAKFAST, 4 UNITS W/LUNCH, 4 UNITS W/DINNER (BOX OF 5 CARTRIDGES) az (more content not included)... [facility] 02-04-2023 Miscellaneous Notes Pt daughter notified and appt made, Paty Jones Ma Would need appointment. Chandrika Almonte APRN.SPIKE Patient reports she did a urine test yesterday and was told it was negative for UTI. Reports for the past week, she's been having urgency, frequency, pain deep in pelvic area with urination, feels pressure with urination. No fever. Asking provider to advise. Offered appt - patient states she can come in, but is unable to give a urine sample in the office, because of her bad shoulder she is unable to use the bathroom in the office. Please advise patient. documented in this encounter [facility] 01-31-2023 Miscellaneous Notes PDMP website checked and validated. All prescriptions have been APPROPRIATELY filled. No suspicious activity was identified. 01/31/2023 by Rylee Henson MD MARGARITA:12/30/22 NOV:03/28/23 Patient has been identified by name and date of : Yes Requested Prescriptions Pending Prescriptions Disp Refills oxyCODONE-acetaminophen (PERCOCET) 10-325 mg tablet 90 tablet 0 Sig: Take 1 tablet by mouth every 8 hours as needed for pain for up to 30 days. RX INSTRUCTIONS: Patient aware RX will be sent to pharmacy. No need to notify patient. Kari Montenegro documented in this encounter [facility] 01-24-2023 Miscellaneous Notes Called and spoke with pt's daughter Julia who called in and requested the refills earlier. Updated her on the Montelukast and the Losartan. Explained Dr. Henson does not order the Losartan so we couldn't do the refills anyways. Daughter now states she wants the Lantus insulin sent to [facility] in [place]. She verbalizes understanding of everything and will contact [facility] first to check on refills in the future. Called and spoke with [facility] as some of the medications requested should still have refills on them. Spoke with [facility]. Only 3 meds need refills: the Furosemide, the Levothyroxine and the Lantus insulin. The Montelukast refill was mailed out to pt yesterday and the Losartan is set to be sent out on Feb 08. Corrections made to med refill request list. Pharmacy verified in [facility] Patient has been identified by name and date of : Yes Patient aware RX will be sent to pharmacy. No need to notify patient. phones for refill(s): Requested Prescriptions Pending Prescriptions Disp Refills losartan (COZAAR) 50 mg tablet 90 tablet 2 Sig: Take 1 tablet by mouth once daily. Per Dr. Gandhi, nephrology furosemide (LASIX) 40 mg tablet 90 tablet 1 Sig: Take 1 tablet by mouth once daily. levothyroxine (SYNTHROID) 100 mcg tablet 90 tablet 1 Sig: Take 1 tablet by mouth daily before breakfast. montelukast (SINGULAIR) 10 mg tablet 90 tablet 3 Sig: Take 1 tablet by mouth daily at bedtime. insulin glargine (LANTUS SOLOSTAR U-100 INSULIN) 100 unit/mL (3 mL) 5 Each 3 Sig: Take 4 units daily (box of 5 pens). Date of last office visit : 12/30/2022 Date of next office visit : 03/28/2023 Last 2 Encounter Wt Readings: Date: Wt: 03/04/2022 81.6 kg (180 lb) 01/30/2022 0 kg () Not applicable Please advise. Loli Carvajal documented in this encounter [facility] 12-30-2022 Note HNO ID: [id number] Author: Rylee Henson MD Service: ? Author Type: Physician Type: Progress Notes Filed: 01/05/2023 6:59 AM Note Text: Chief Complaint Patient presents with: Follow Up HPI Shanice Patel is a 87 year old female who presents here today for Above Complaints.. Accompanied today by sales representative girls' apparel Everardo who is a friend of the family and is with her 30-40 hours per week. Denies recent hospitalizations or ER visits. Using walker for ambulation without falls. DIABETES MELLITUS: Ms. Patel was last seen 3 months ago. Since our last visit she denies excessive thirst or increased frequency of urination, chest pain or dyspnea , and new or unusual visual symptoms. Follows a diabetic diet most of the time. She is compliant with medication(s) and is tolerating med(s) without any side effects. She reports checking her glucose on a four times a day schedule with average sugar in last 30 days of 152. 12am to 6am: 136, 6am to 12pm: 130, 12pm to 6pm: 181, 6pm to 12am: 172. Has 7 hypoglycemic readings in the last 30 days, but caregiver reports that they are actually normal range on finger prick. Patient's last HgA1C was Hemoglobin A1C (%) Date Value 10/02/2022 6.7 11/09/2021 6.7 12/15/2020 7.6 07/10/2020 7.8 ) Last Ophthalmology exam was within the past 3-[address] Green with finding of proliferative retinopathy bilaterally. Last Podiatry exam was within last [address] Lorenzo. Caregiver notes that she had pressure ulcers on back and buttock which have resolved with his care. Hypothyroidism: Due for repeat TSH today. BP well controlled on current regimen. Amlodipine discontinued previously due to leg swelling. Losartan increased to 50 mg daily at last OV with cardiology. No other changes to regimen by cardiology. Taking percocet as prescribed three times a day. Helps with chronic back and right shoulder pain. Controls pain so she can use walker to ambulate. Helping with ADLs. Urine drug screen completed in last 12 months. Past medical history, appointments, medications, allergies reviewed. Previous Medical History PAST MEDICAL HISTORY Diagnosis Date Anemia Bilateral lower extremity edema CHF (congestive heart failure) ([facility]) [facility]. Chronic diastolic heart failure Chronic lower back pain DIVERTICULOSIS Essential hypertension, benign Gangrene ([facility]) 03/22/2005 Gastric ulcer, unspecified as acute or chronic, without mention of hemorrhage, perforation, or obstruction Gout Hypothyroidism Inflammatory and toxic neuropathy, unspecified Iron deficiency anemia, unspecified Lumbar spinal stenosis Macular degeneration Osteoarthritis Osteoporosis 01/25/2009 BMD 01/16/09, No sig change from baseline. Proliferative diabetic retinopathy, both eyes ([facility]) inactive Renal failure, unspecified Dr. Gandhi Thrombocytopenia, unspecified ([facility]) Type II 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, not stated as uncontrolled(250.60) Ulcer of other part of foot Previous Surgical History PAST SURGICAL HISTORY Procedure Laterality Date APPENDECTOMY CHOLECYSTECTOMY Cholecystectomy COLONOSCOPY FLX DX W/COLLJ SPEC WHEN PFRMD 06/25/2001 Colonoscopy COLONOSCOPY FLX DX W/COLLJ SPEC WHEN PFRMD 05/16/2016 Colonoscopy DILATION AND CURETTAGE DXAND/THER NONOBSTETRIC Dilation AND curettage ENDOMETRIAL BX W/WO ENDOCERVIX BX W/O DILAT SPX 2016 x2. benign and then repeat was poor specimen. ESOPHAGOGASTRODUODENOSCOPY TRANSORAL DIAGNOSTIC 06/25/2001 EGD PAST SURGICAL HISTORY OF LUMBAR LAMINECTOMY-L3,L4,L5 PAST SURGICAL HISTORY OF ECHOCARDIOGRAM TONSILLECTOMY PRIMARY/SECONDARY Tonsillectomy Family History FAMILY HISTORY Problem Relation Age of Onset Cancer Mother Heart Father Hypertension Father Stroke Father Breast Cancer Maternal Aunt Cancer Maternal Uncle LUNG CANCER X 2 Stroke Sister Patient Allergies ALLERGIES Allergen Reactions Ivp Dye [Iodine] Anaphylaxis Prinzide [Lisinopri* Cough Faby Inhibitors Cough cough Mucinex [Guaifenesi* Unknown Neomycin Rash Current Medications Current Outpatient Medications on File Prior to Visit Medication Sig Biotin 10,000 mcg cap Take 5,000 mcg by mouth. cimetidine (TAGAMET) 400 mg tablet Take 400 mg by mouth as needed (upset stomach). oxyCODONE-acetaminophen (PERCOCET) 10-325 mg tablet Take 1 tablet by mouth every 8 hours as needed for pain for up to 30 days. Blood-Glucose Meter (TRUE METRIX AIR GLUCOSE METER) Check blood sugar four times a day blood sugar diagnostic (TRUE METRIX GLUCOSE TEST STRIP) test strip Use as instructed Insulin Reddick, Disposable, (NOVOFINE 32) 32 gauge x 1/4 Inject 1 Each subcutaneously four times daily. Use one needle with each insulin dose (4 times per day) Dx: 250.00 Insulin: yes flash glucose scanning reader ([employer] HALIMA 14 DAY READER) 1 Device four times daily. allopuri (more content not included)... [facility] 12-30-2022 History of Presen t illness Narrative Chief Complaint Patient presents with: Follow Up HPI Shanice Patel is a 87 year old female who presents here today for Above Complaints.. Accompanied today by sales representative girls' apparel Everardo who is a friend of the family and is with her 30-40 hours per week. Denies recent hospitalizations or ER visits. Using walker for ambulation without falls. DIABETES MELLITUS: Ms. Patel was last seen 3 months ago. Since our last visit she denies excessive thirst or increased frequency of urination, chest pain or dyspnea , and new or unusual visual symptoms. Follows a diabetic diet most of the time. She is compliant with medication(s) and is tolerating med(s) without any side effects. She reports checking her glucose on a four times a day schedule with average sugar in last 30 days of 152. 12am to 6am: 136, 6am to 12pm: 130, 12pm to 6pm: 181, 6pm to 12am: 172. Has 7 hypoglycemic readings in the last 30 days, but caregiver reports that they are actually normal range on finger prick. Patient's last HgA1C was Hemoglobin A1C (%) Date Value 10/02/2022 6.7 11/09/2021 6.7 12/15/2020 7.6 07/10/2020 7.8 ) Last Ophthalmology exam was within the past 3-[address] Green with finding of proliferative retinopathy bilaterally. Last Podiatry exam was within last [address] Lorenzo. Caregiver notes that she had pressure ulcers on back and buttock which have resolved with his care. Hypothyroidism: Due for repeat TSH today. BP well controlled on current regimen. Amlodipine discontinued previously due to leg swelling. Losartan increased to 50 mg daily at last OV with cardiology. No other changes to regimen by cardiology. Taking percocet as prescribed three times a day. Helps with chronic back and right shoulder pain. Controls pain so she can use walker to ambulate. Helping with ADLs. Urine drug screen completed in last 12 months. Past medical history, appointments, medications, allergies reviewed. Previous Medical History PAST MEDICAL HISTORY Diagnosis Date Anemia Bilateral lower extremity edema CHF (congestive heart failure) ([facility]) [facility]. Chronic diastolic heart failure Chronic lower back pain DIVERTICULOSIS Essential hypertension, benign Gangrene ([facility]) 03/22/2005 Gastric ulcer, unspecified as acute or chronic, without mention of hemorrhage, perforation, or obstruction Gout Hypothyroidism Inflammatory and toxic neuropathy, unspecified Iron deficiency anemia, unspecified Lumbar spinal stenosis Macular degeneration Osteoarthritis Osteoporosis 01/25/2009 BMD 01/16/09, No sig change from baseline. Proliferative diabetic retinopathy, both eyes ([facility]) inactive Renal failure, unspecified Dr. Gandhi Thrombocytopenia, unspecified ([facility]) Type II 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, not stated as uncontrolled(250.60) Ulcer of other part of foot Previous Surgical History PAST SURGICAL HISTORY Procedure Laterality Date APPENDECTOMY CHOLECYSTECTOMY Cholecystectomy COLONOSCOPY FLX DX W/COLLJ SPEC WHEN PFRMD 06/25/2001 Colonoscopy COLONOSCOPY FLX DX W/COLLJ SPEC WHEN PFRMD 05/16/2016 Colonoscopy DILATION & CURETTAGE DX&/THER NONOBSTETRIC Dilation & curettage ENDOMETRIAL BX W/WO ENDOCERVIX BX W/O DILAT SPX 2016 x2. benign and then repeat was poor specimen. ESOPHAGOGASTRODUODENOSCOPY TRANSORAL DIAGNOSTIC 06/25/2001 EGD PAST SURGICAL HISTORY OF LUMBAR LAMINECTOMY-L3,L4,L5 PAST SURGICAL HISTORY OF ECHOCARDIOGRAM TONSILLECTOMY PRIMARY/SECONDARY <AGE 12 Tonsillectomy Family History FAMILY HISTORY Problem Relation Age of Onset Cancer Mother Heart Father Hypertension Father Stroke Father Breast Cancer Maternal Aunt Cancer Maternal Uncle LUNG CANCER X 2 Stroke Sister Patient Allergies ALLERGIES Allergen Reactions Ivp Dye [Iodine] Anaphylaxis Prinzide [Lisinopri* Cough Faby Inhibitors Cough cough Mucinex [Guaifenesi* Unknown Neomycin Rash Current Medications Current Outpatient Medications on File Prior to Visit Medication Sig Biotin 10,000 mcg cap Take 5,000 mcg by mouth. cimetidine (TAGAMET) 400 mg tablet Take 400 mg by mouth as needed (upset stomach). oxyCODONE-acetaminophen (PERCOCET) 10-325 mg tablet Take 1 tablet by mouth every 8 hours as needed for pain for up to 30 days. Blood-Glucose Meter (TRUE METRIX AIR GLUCOSE METER) Check blood sugar four times a day blood sugar diagnostic (TRUE METRIX GLUCOSE TEST STRIP) test strip Use as instructed Insulin Reddick, Disposable, (NOVOFINE 32) 32 gauge x 1/4 Inject 1 Each subcutaneously four times daily. Use one needle with each insulin dose (4 times per day) Dx: 250.00 Insulin: yes flash glucose scanning reader (Entomo HALIMA 14 DAY READER) 1 Device four times daily. allopurinol (ZYLOPRIM) 100 mg tablet Take 1 tablet by mouth once daily. amLODIPine (NORVASC) 10 mg tablet Take 1 tablet by mouth once daily. (Patient not taking: Reported on 12/04/2022) folic acid 1 mg tablet Take 1 tablet by mouth twice daily. furosemide (LASIX) 40 mg tablet Take 1 tablet by mouth once daily. IFEREX 150 150 mg iron capsule Take 1 capsule by mouth every other day. (Patient not taking: Reported on 12/04/2022) insulin glargine (LANTUS SOLOSTAR U-100 INSULIN) 100 unit/mL (3 mL) Take 4 units daily (box of 5 pens). levothyroxine (SYNTHROID) 100 mcg tablet Take 1 tablet by mouth daily before breakfast. losartan (COZAAR) 25 mg tablet Take 1 tablet by mouth once daily. Per Dr. Gandhi, nephrology (Patient taking differently: Take 50 mg by mouth once daily. Per Dr. Gandhi, nephrology) meclizine (ANTIVERT) 12.5 mg tab Take 1 tablet by mouth twice daily as needed (dizziness). montelukast (SINGULAIR) 10 mg tablet Take 1 tablet by mouth daily at bedtime. flash glucose sensor (FREESTYLE HALIMA 14 DAY SENSOR) kit 1 Each every 2 weeks. benzonatate (TESSALON PERLES) 100 mg capsule Take 1 capsule by mouth three times daily as needed for cough. (Patient not taking: Reported on 10/02/2022) insulin aspart U-100 (NOVOLOG FLEXPEN U-100 INSULIN) 100 unit/mL (3 mL) Inject subcutaneously. WITH FIRST BITE OF FOOD, 4 UNITS W/BREAKFAST, 4 UNITS W/LUNCH, 4 UNITS W/DINNER (BOX OF 5 CARTRIDGES) azelastine (ASTELIN, ASTEPRO) 0.1% nasal spray Use 2 Sprays in each nostril twice daily. (Patient not taking: Reported on 10/02/2022) ondansetron orally disintegrating (ZOFRAN ODT) 4 mg disintegrating tablet Take 1 tablet by mouth every 8 hours As Needed for nausea and vomiting ergocalciferol 50,000 unit capsule (VITAMIN D2, DRISDOL) Take 1 capsule by mouth once every month. TAKES ON FIRST DAY OF MONTH (Patient not taking: Reported on 12/04/2022) albuterol (PROVENTIL) 2.5 mg /3 mL (0.083 %) nebulizer solution Use 3 mL via nebulizer every 4 hours as needed for wheezing/shortness of breath. Use over 5-15minutes. flash glucose scanning reader (FREESTYLE HALIMA 14 DAY READER) Checks blood sugar 4 times daily polyethylene glycol 3350 (MIRALAX, GLYCOLAX) 17 gram packet Take 1 Packet by mouth twice daily as needed (constipation). senna (SENNA) 8.6 mg tab Take 1 tablet by mouth twice daily as needed (constipation). flash glucose sensor (FREESTYLE HALIMA 10 DAY SENSOR) kit 1 Each four times daily. sucralfate (CARAFATE) 1 gram tablet Take 1 tablet by mouth twice daily before meals. Patient takes as needed (Patient not taking: Reported on 07/31/2022) COMPOUNDED PRESCRIPTION Zero G boot heel protector docusate sodium (COLACE) 100 mg capsule Take 1 capsule by mouth twice daily. Compression Knee Highs KNEE HIGH COMPRESSION STOCKINGS with zippers 30-40 MM. DX: I83.12 I83.11 I87.303 aspirin, enteric coated (ASPIRIN, ENTERIC COATED) 81 mg EC tablet Take 1 tablet by mouth twice daily. ped multivit #43-iron fumarate (FLINTSTONES COMPLETE, IRON,) 18 mg iron chew Take 1 tablet by mouth once daily. No current facility-administered medications on file prior to visit. Social History Social History Tobacco Use Smoking status: Never Smokeless tobacco: Never Vaping Use Vaping Use: Never used Substance Use Topics Alcohol use: No Drug use: No Review of Symptoms REVIEW OF SYSTEMS GENERAL: No weight loss, malaise or fevers RESPIRATORY: Negative for cough, hemoptysis, wheezing, COPD, dyspnea or shortness of breath CARDIOVASCULAR: Negative for chest pain, leg swelling, hypertension, CHF or palpitations GI: No nausea, vomiting, or diarrhea SKIN: See HPI EXAM: BP 134/68 Pulse 73 Resp 18 SpO2 94% General Appearance: Well appearing, alert, in no acute distress, well-hydrated, well nourished. and Wheelchair. Skin: 3 x 3 cm of erythema on right upper back over area of previous ulceration. 3. Lungs: Lungs clear to auscultation. No wheezing, rhonchi, rales.. Heart: RRR without murmur, gallop, or rubs. No ectopy. Extremities: No deformities, edema, skin discoloration, clubbing or cyanosis. Good capillary refill. . Musculoskeletal: No joint swelling, deformity, or tenderness. Health Maintenance List Dilated Retinal Exam due on 12/22/2021 Advance Directive Discussion Never done Depression Assessment Never done LDL Cholesterol due on 11/09/2022 Urine Albumin:Creatinine Ratio due on 11/15/2022 Diabetic Foot Exam due on 11/19/2022 Influenza Vaccine(1) due on 12/06/2022 Shingrix Vaccine(2 of 2) due on 06/25/2023 Covid-19 Vaccine(1) due on 06/25/2023 HbA1C due on 04/03/2023 DTaP,Tdap,Td Vaccine(5 - Td or Tdap) due on 03/18/2028 Bone Density Screening Completed Pneumococcal Vaccine: 65+ Completed Data reviewed Component Latest Ref Rng & Units 10/02/2022 10/07/2022 Protein, Total 6.3 - 8.0 g/dL 7.4 Albumin 3.9 - 4.9 g/dL 4.2 Calcium 8.5 - 10.2 mg/dL 10.3 (H) Bilirubin, Total 0.2 - 1.3 mg/dL 0.4 Alkaline Phosphatase 34 - 123 U/L 82 AST 13 - 35 U/L 25 ALT 7 - 38 U/L 13 Glucose 74 - 99 mg/dL 149 (H) BUN 7 - 21 mg/dL 37 (H) Creatinine 0.58 - 0.96 mg/dL 1.04 (H) Sodium 136 - 144 mmol/L 142 Potassium 3.7 - 5.1 mmol/L 6.0 (H) 4.8 Chloride 97 - 105 mmol/L 105 CO2 22 - 30 mmol/L 27 Anion Gap 9 - 18 mmol/L 10 eGFR >=60 mL/min/1.73m 52 (L) Hemoglobin A1C 4.3 - 5.6 % 6.7 (H) Estimated Average Glucose mg/dL 146 ASSESSMENT/PLAN: 1. Type 2 diabetes mellitus with diabetic peripheral angiopathy without gangrene, with long-term current use of insulin (HCC) - ICD9: 250.70, 443.81, V58.67, ICD10: E11.51, Z79.4 (primary diagnosis) - Controlled - Continue current medications - Blood glucose monitoring on a four times daily schedule - Counseled on healthy diet and regular exercise - Discussed need for and benefit of weight loss. No weight on file for this encounter. - Follow up in 3 months, sooner should any other issues arise. - HGB A1C - COMP METABOLIC PANEL - LIPID PANEL, NONFASTING - ALBUMIN/CREAT RATIO RND UR 2. Proliferative diabetic retinopathy of both eyes associated with type 2 diabetes mellitus, macular edema presence unspecified (HCC) - ICD9: 250.50, 362.02, ICD10: E11.3593 Stable. F/u with optho. 3. Lumbar radiculopathy - ICD9: 724.4, ICD10: M54.16 Chronic pain controlled on current dose of Percocet. Improved ADLs with rx as noted above. PDMP website checked and validated. All prescriptions have been APPROPRIATELY filled. No suspicious activity was identified. 01/05/2023 by Rylee Henson MD - OXYCODONE-ACETAMINOPHEN 10 MG-325 MG TABLET 4. Peripheral artery disease (HCC) - ICD9: 443.9, ICD10: I73.9 Stable. Continue ASA. Recheck lipid panel. Not on statin at this time. 5. Chronic diastolic congestive heart failure (HCC) - ICD9: 428.32, 428.0, ICD10: I50.32 Stable. Recommend low sodium diet. Monitor for fluid overload. - LIPID PANEL, NONFASTING 6. Hypertensive heart and kidney disease with chronic diastolic congestive heart failure and stage 3b chronic kidney disease (HCC) - ICD9: 404.91, 428.32, 585.3, 428.0, ICD10: I13.0, I50.32, N18.32 Stable 7. Essential hypertension - ICD9: 401.9, ICD10: I10 - Controlled - Continue current medications - Recommend home blood pressure monitoring, to bring results to next visit - Encouraged sodium restriction, DASH or Mediterranean diet - Recommend regular aerobic exercise - LOSARTAN 50 MG TABLET 8. CKD (chronic kidney disease) stage 3, GFR 30-59 ml/min ([facility]) - ICD9: 585.3, ICD10: N18.30 Stable - Counseled on avoiding NSAIDs, adequate hydration - Counseled on low sodium diet - LOSARTAN 50 MG TABLET 9. Acquired hypothyroidism - ICD9: 244.9, ICD10: E03.9 - Instructed patient on importance of taking on an empty stomach either first thing in the morning or at bedtime. - continue current dose of Synthroid 0.100 mg - TSH BLD 10. Pressure injury of back, stage 1 - ICD9: 707.09, 707.21, ICD10: L89.101 Healing well. Continue skin care as discussed. 11. Encounter for immunization - ICD9: V03.89, ICD10: Z23 - INFLUENZA VACCINE, PRSV FREE, AGE 65+ YR, HIGH DOSE, QUADRIVALENT (FLUZONE HIGH-DOSE) Rylee Henson MD documented in this encounter [facility] 12-20-2022 Miscellaneous Notes Patient daughter notified of results and provider's instructions. Patient daughter verbalizes understanding. Angi Ayala LPN Please call patient to inform her that ultrasound does not show any evidence of dvt Some chronic plaque build-up but no acute clot Zak Lorenzo DPM documented in this encounter [facility] 12-10-2022 Miscellaneous Notes Left another message for patient's daughter regarding forms. Request she have them forward or if they have and they have received them back to please notify us so the encounter can be closed. Detailed message left for patient's daughter (Julia)to fax forms or drop off to medical records. Please have them fax or bring in forms for me to complete. Patient reports her meter quit working- will not give readings. Patient doesn't know the name of the meter, but reports she changes the sensors every 2 weeks. Reports she tried putting in new batteries, but that didn't help. Reports she got the meter in 2019. Asking if pcp can do the paperwork for Sol[employer]ig[employer], for her to get a new one. Reports pcp sends Solara the paperwork and they send her a new one in the mail. Please advise patient. documented in this encounter [facility] 12-05-2022 Miscellaneous Notes Called and left a detailed voicemail notifying Edith with [facility], nursing of providers message. Hospital phone number was left in case she had any questions. Deysi Borrego RN Agree and is OK for VO. Edith with [facility] nursing calling for verbal orders to continue care for 1 time a week for 4 weeks to continue to monitor area on buttocks that is not quite healed. Sven is healed. Please advise Edith with a verbal order. Mayela Jordan LPN documented in this encounter [facility] 12-04-2022 Note HNO ID: [id number] Author: Zak Lorenzo Service: ? Author Type: Physician Type: Progress Notes Filed: 12/04/2022 12:23 PM Note Text: Last saw pcp: 10/02/22 Subjective: Patient presents to clinic c/o painful toenails. They state that the nails are especially painful with shoe gear and pressure. Patient states that nails 1-5 b/l are painful. Patient admits to being diabetic. Patient does report swelling in right leg. No other pedal complaints at this time. Patient states no change in medications or medical history since last visit. Objective: Patient presents to clinic ambulating in diabetic shoes Vasc: DP and PT pulses are decreased due to swelling bilateral. CFT is less than 5 seconds bilateral. Skin temperature is warm to cool proximal to distal bilateral. There is severe edema to right lower extremity with calf pain. Neuro: Protective sensation is absent to the foot and toes when tested with the 5.07 SWM bilateral. Vibratory sensation is absent at the hallux IPJ bilateral. The hallux is downgoing bilateral. Derm: Nails 1-5 b/l are painful, discolored-yellow, thick, crumbly, dystrophic and with subungal debris. Skin is of normal turgor, texture and hair growth is absent bilateral. There are no hyperkeratosis, ulcerations, scars, verruca or other lesions noted. Ortho: Muscle strength is 5/5 for all pedal groups tested. Ankle joint DF is decresaed with the knee extended with no pain or crepitus noted. 1st MPJ ROM is decreased bilateral. Assessment: (B35.1) Onychomycosis (primary encounter diagnosis) (M79.675) Pain in toe of left foot (M79.674) Pain in toe of right foot (E11.49) Other diabetic neurological complication associated with type 2 diabetes mellitus (HCC) (I87.2) Venous insufficiency (M79.661) Right calf pain Plan: Patient was seen and evaluated. Nails 1-5 bilateral were debrided in length and thickness. Discussed swelling of right leg. Likely component of venous insufficiency. Will order duplex doppler to assure no blood clot. No test available until Friday. Discussed presentation to ED. She chose to take study on Friday. Patient was instructed on the continued importance of diabetic foot care along with proper diet and keeping their blood sugar under control to prevent complications. Patient is to RTC in 3-4 months. Zak Lorenzo DPM [facility] 12-04-2022 Note HNO ID: [id number] Author: Angi Ayala LPN Service: ? Author Type: LICENSED NURSE Type: Progress Notes Filed: 12/04/2022 12:23 PM Note Text: AMB ROOMING INTAKE FLOWSHEET DATA Pain Pain Level: 5 Pain Location: Other: See Comment Description: Sharp Duration Units: Months Frequency: Intermittent Intervention/Comfort measure: Reposition, Relaxation Patient presents with: Left Foot - Established Patient, Follow Up, Diabetic Foot Care, Pain Right Foot - Established Patient, Follow Up, Diabetic Foot Care, Pain Patient present with caregiver. Patient present to office for diabetic foot care and nail care. Angi yAala LPN [facility] 12-03-2022 Miscellaneous Notes PDMP website checked and validated. All prescriptions have been APPROPRIATELY filled. No suspicious activity was identified. 12/03/2022 by Chandrika Almonte APRN.SPIKE Last office visit: 10/02/22 F/u scheduled: 12/30/22 Last refilled on: Percocet #90 on 10/30/22 Paty Jones Ma Patient has been identified by name and date of : Yes Last office visit in this department: 10/02/2022 RX INSTRUCTIONS: Patient aware RX will be sent to pharmacy. No need to notify patient. Patient phones requesting refills as follows: Requested Prescriptions Pending Prescriptions Disp Refills oxyCODONE-acetaminophen (PERCOCET) 10-325 mg tablet 90 tablet 0 Sig: Take 1 tablet by mouth every 8 hours as needed for pain for up to 30 days. Please review and advise. Marilyn Dos Santos Pss documented in this encounter [facility] 11-08-2022 Miscellaneous Notes Retiurned call to Edith at [facility] and advised her PCP gave verbal orders for her recommendations/request. OK for VO. Edith from [facility] Home Health calling asking for verbal order to continue with senior living visits for wound assessment and wound care, 1 visit weekly for 4 weeks. Please advise documented in this encounter [facility] 10-30-2022 Miscellaneous Notes PDMP website checked and validated. All prescriptions have been APPROPRIATELY filled. No suspicious activity was identified. 10/30/2022 by Rylee Henson MD Patient has been identified by name and date of : Yes Requested Prescriptions Pending Prescriptions Disp Refills oxyCODONE-acetaminophen (PERCOCET) 10-325 mg tablet 90 tablet 0 Sig: Take 1 tablet by mouth every 8 hours as needed for pain for up to 30 days. MARGARITA-10/02/22 Labs-10/07/22 NOV-12/30/22 RX INSTRUCTIONS: Patient aware RX will be sent to pharmacy. No need to notify patient. Parvin Mendiola [facility] [place] [facility] 10-09-2022 Miscellaneous Notes Daughter informed. ----- Message from Rylee Henson MD sent at 10/09/2022 8:10 AM EDT ----- Repeat potassium level in normal range. No change to regimen. High potassium level was likely lab error. documented in this encounter [facility] 10-07-2022 Miscellaneous Notes Phoned alt number (mobile) and spoke with Dulce. Reviewed message with her and she stated she will contact patient 's career professional and have him bring her in 1st thing tomorrow. Phoned patient's daughter Julia and message left for her to receive message advised her important to return call. TC to pt. LM to call office, ask for triage nurse to get results. Leny Bennett LPN Diabetes well controlled. Kidney function stable in CKD stage III range. Potassium level significantly elevated at 6. Possible lab error, but needs repeat blood work done today to confirm. If not lab error, this could cause arrhythmia or even and would need to be treated. documented in this encounter [facility] 10-04-2022 Miscellaneous Notes Edith from [facility] notified. Agree Edith calling from [facility] to report plan of care for patient and senior living will continue to visit patient 1 time a week for 5 weeks. [facility] will work with patient on continued wound care to right lower back. Deisy Will RN documented in this encounter [facility] 10-03-2022 Miscellaneous Notes PDMP website checked and validated. All prescriptions have been APPROPRIATELY filled. No suspicious activity was identified. 10/03/2022 by Rylee Henson MD Last Office Visit: 10/02/2022 Future Office Visit: 12/30/2022 Requested Prescriptions Pending Prescriptions Disp Refills oxyCODONE-acetaminophen (PERCOCET) 10-325 mg tablet 90 tablet 0 Sig: Take 1 tablet by mouth every 8 hours as needed for pain for up to 30 days. Date of Last Labs: 06/24/2022 documented in this encounter [facility] 10-02-2022 Note HNO ID: [id number] Author: Chandrika Almonte APRN.[employer]ER Service: ? Author Type: Nurse Practitioner Type: Progress Notes Filed: 10/02/2022 11:13 AM Note Text: 10/02/2022 Patient presents with: F/U 3 Month SUBJECTIVE: This is a 87 year old, accompanied by caregiver, Michael, that is here today for Above Complaints. Since last DIABETES MELLITUS: Ms. Patel was last seen on 06/24/22. Since our last visit she denies excessive thirst or increased frequency of urination, chest pain or dyspnea , numbness, tingling or pain in extremities, new or unusual visual symptoms, low sugar/hypoglycemic reactions, weight loss/gain, lightheadedness/dizziness, and bowel changes/loose stools. Follows a diabetic diet . She reports checking her glucose on a four times a day schedule with sugars in the 90 day average 151 range. Patient's last HgA1C was Hemoglobin A1C (%) Date Value 11/09/2021 6.7 07/25/2021 6.8 12/15/2020 7.6 07/10/2020 7.8 ) Last Ophthalmology exam was within the past 3 months Wound: continues to follow with wound care weekly. Healing well per patient. 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 No medication changes at that time. Eating low salt diet HYPOTHYROIDISM: taking synthroid as prescribed HTN: Patient is compliant with meds Yes Monitors bp at home: No. Denies side effects: Yes. Chest pain: No. Dyspnea: No. Edema: chronic- worse in right leg. Palpitations: No. Syncope: No. Headache: No. Dizziness: No. Taking percocet as prescribed three times a day. Helps with chronic back and right shoulder pain. Controls pain so she can use walker to ambulate Gout. Taking allopurinol as prescribed. No recent gout flares PAST MEDICAL HISTORY Diagnosis Date Anemia Bilateral lower extremity edema CHF (congestive heart failure) ([facility]) [facility]. Chronic diastolic heart failure Chronic lower back pain DIVERTICULOSIS Essential hypertension, benign Gangrene ([facility]) 03/22/2005 Gastric ulcer, unspecified as acute or chronic, without mention of hemorrhage, perforation, or obstruction Gout Hypothyroidism Inflammatory and toxic neuropathy, unspecified Iron deficiency anemia, unspecified Lumbar spinal stenosis Macular degeneration Osteoarthritis Osteoporosis 01/25/2009 BMD 01/16/09, No sig change from baseline. Proliferative diabetic retinopathy, both eyes ([facility]) inactive Renal failure, unspecified Dr. Gandhi Thrombocytopenia, unspecified ([facility]) Type II 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, not stated as uncontrolled(250.60) Ulcer of other part of foot ALLERGIES Ivp Dye [Iodine], Prinzide [Lisinopril-Hydrochlorothiazide] , Faby Inhibitors, Mucinex [Guaifenesin], and Neomycin MEDICATIONS Current Outpatient Medications Medication Sig Insulin Reddick, Disposable, (NOVOFINE 32) 32 gauge x 1/4 Inject 1 Each subcutaneously four times daily. Use one needle with each insulin dose (4 times per day) Dx: 250.00 Insulin: yes oxyCODONE-acetaminophen (PERCOCET) 10-325 mg tablet Take 1 tablet by mouth every 8 hours as needed for pain for up to 30 days. flash glucose scanning reader (FREESTYLE HALIMA 14 DAY READER) 1 Device four times daily. allopurinol (ZYLOPRIM) 100 mg tablet Take 1 tablet by mouth once daily. amLODIPine (NORVASC) 10 mg tablet Take 1 tablet by mouth once daily. folic acid 1 mg tablet Take 1 tablet by mouth twice daily. furosemide (LASIX) 40 mg tablet Take 1 tablet by mouth once daily. IFEREX 150 150 mg iron capsule Take 1 capsule by mouth every other day. insulin glargine (LANTUS SOLOSTAR U-100 INSULIN) 100 unit/mL (3 mL) Take 4 units daily (box of 5 pens). levothyroxine (SYNTHROID) 100 mcg tablet Take 1 tablet by mouth daily before breakfast. losartan (COZAAR) 25 mg tablet Take 1 tablet by mouth once daily. Per Dr. Gandhi, nephrology meclizine (ANTIVERT) 12.5 mg tab Take 1 tablet by mouth twice daily as needed (dizziness). montelukast (SINGULAIR) 10 mg tablet Take 1 tablet by mouth daily at bedtime. flash glucose sensor (FREESTYLE HALIMA 14 DAY SENSOR) kit 1 Each every 2 weeks. benzonatate (TESSALON PERLES) 100 mg capsule Take 1 capsule by mouth three times daily as needed for cough. insulin aspart U-100 (NOVOLOG FLEXPEN U-100 INSULIN) 100 unit/mL (3 mL) Inject subcutaneously. WITH FIRST BITE OF FOOD, 4 UNITS W/BREAKFAST, 4 UNITS W/LUNCH, 4 UNITS W/DINNER (BOX OF 5 CARTRIDGES) azelastine (ASTELIN, ASTEPRO) 0.1% nasal spray Use 2 Sprays in each nostril twice daily. ondansetron orally disintegrating (ZOFRAN ODT) 4 mg disintegrating tablet Take 1 tablet by mouth every 8 hours As Needed for nausea and vomiting ergocalciferol 50,000 unit capsule (VITAMIN D2, DRISDOL) Take 1 capsule by mouth once every month. TAKES ON FIRST DAY OF MONTH albuterol (PROVENTIL) 2.5 mg /3 mL (0.083 %) nebulizer solution Use 3 mL (more content not included)... [facility] 09-12-2022 Miscellaneous Notes Patient has been identified by name and date of : Yes Last office visit in this department: 06/24/2022 RX INSTRUCTIONS: Patient aware RX will be sent to pharmacy. No need to notify patient. Patient phones requesting refills as follows: Requested Prescriptions Pending Prescriptions Disp Refills Insulin Reddick, Disposable, (NOVOFINE 32) 32 gauge x 1/4 200 Each 3 Sig: Inject 1 Each subcutaneously four times daily. Use one needle with each insulin dose (4 times per day) Dx: 250.00 Insulin: yes Please review and advise. Loli Manriquez documented in this encounter [facility] 09-03-2022 Miscellaneous Notes PDMP website checked and validated. All prescriptions have been APPROPRIATELY filled. No suspicious activity was identified. 09/03/2022 by Chandrika Almonte APRN.SPIKE Pharmacy verified in [facility] Patient has been identified by name and date of : Yes Patient aware RX will be sent to pharmacy. No need to notify patient. Patient phones for refill(s): Requested Prescriptions Pending Prescriptions Disp Refills oxyCODONE-acetaminophen (PERCOCET) 10-325 mg tablet 90 tablet 0 Sig: Take 1 tablet by mouth every 8 hours as needed for pain for up to 30 days. Date of last office visit : 06/24/2022 Date of next office visit : 09/30/2022 Last 2 Encounter Wt Readings: Date: Wt: 03/04/2022 81.6 kg (180 lb) 01/30/2022 0 kg () Not applicable Please advise. Loli Henley Pss documented in this encounter [facility] 08-19-2022 Miscellaneous Notes Pt called and her Freestyle Halima 14 is not working correctly. Pt requesting a new Freestyle Halima be sent to [facility]. Patient has been identified by name and date of : Yes, Provider Yosef Date 08/19/22 Time 12:18 pm Patient phones for refill(s): Requested Prescriptions Pending Prescriptions Disp Refills flash glucose scanning reader (FREESTYLE HALIMA 14 DAY READER) Date of last office visit in primary care: 06/24/22 next apt 09/30/22 Last 2 Encounter Wt Readings: Date: Wt: 03/04/2022 81.6 kg (180 lb) 01/30/2022 0 kg () Previous labs/tests for medication: Diabetes: Hemoglobin A1C (%) Date Value 11/09/2021 6.7 07/25/2021 6.8 12/15/2020 7.6 07/10/2020 7.8 Thank you. Mayela Jordan LPN documented in this encounter [facility] 08-07-2022 Miscellaneous Notes Phoned Edith from [facility] [employer] [facility] and went over notes from Dr Henson with understanding. Ok for verbal order for wound care. Edith from [facility] calling time for recert, asking for verbal order for senior living visit 1 time weekly for 8 weeks for wound care. Please advise documented in this encounter [facility] 08-01-2022 Miscellaneous Notes The following approved medication requests have been transmitted electronically. Requested Prescriptions Signed Prescriptions Disp Refills oxyCODONE-acetaminophen (PERCOCET) 10-325 mg tablet 90 tablet 0 Sig: Take 1 tablet by mouth every 8 hours as needed for pain for up to 30 days. Authorizing Provider: RYLEE HENSON MA PDMP website checked and validated. All prescriptions have been APPROPRIATELY filled. No suspicious activity was identified. 08/01/2022 by Rylee Henson MD Pharmacy verified in [facility] Patient has been identified by name and date of : Yes Patient aware RX will be sent to pharmacy. No need to notify patient. Patient phones for refill(s): Requested Prescriptions Pending Prescriptions Disp Refills oxyCODONE-acetaminophen (PERCOCET) 10-325 mg tablet 90 tablet 0 Sig: Take 1 tablet by mouth every 8 hours as needed for pain for up to 30 days. Date of last office visit : 06/24/2022 Labs-06/24/22 Date of next office visit : 09/30/2022 med filled 07/01/22 Last 2 Encounter Wt Readings: Date: Wt: 03/04/2022 81.6 kg (180 lb) 01/30/2022 0 kg () Please advise. Loli Henley Pss documented in this encounter [facility] 07-31-2022 Note HNO ID: [id number] Author: Zak Lorenzo Service: ? Author Type: Physician Type: Progress Notes Filed: 07/31/2022 12:33 PM Note Text: Last saw Dr. Henson; 06/24/22 Subjective: Patient presents to clinic c/o painful toenails. They state that the nails are especially painful with shoe gear and pressure. Patient states that nails 1-5 b/l are painful. Patient admits to being diabetic. Has had concern for charcot in past but xrays have been more associated with arthritis. Has no pain in foot. No other pedal complaints at this time. Patient states no change in medications or medical history since last visit. Objective: Patient presents to clinic ambulating in diabetic shoes Vasc: DP and PT pulses are palpable bilateral. CFT is less than 5 seconds bilateral. Skin temperature is warm to cool proximal to distal bilateral. There is moderate edema or varicosities noted. Neuro: Protective sensation is absent to the foot and toes when tested with the 5.07 SWM bilateral. Vibratory sensation is absent at the hallux IPJ bilateral. The hallux is downgoing bilateral. Derm: Nails 1-5 b/l are painful, discolored-yellow, thick, crumbly, dystrophic and with subungal debris. Skin is of normal turgor, texture and hair growth is absent bilateral. Callus to left posterior heel. No ulceration present. Ortho: Muscle strength is 5/5 for all pedal groups tested. Ankle joint DF is decreased with the knee extended with no pain or crepitus noted. 1st MPJ ROM is decreased bilateral. Assessment: (B35.1) Onychomycosis (primary encounter diagnosis (M79.675) Pain in toe of left foot (M79.674) Pain in toe of right foot callus (E11.49) Other diabetic neurological complication associated with type 2 diabetes mellitus (HCC) Plan: Patient was seen and evaluated. Nails 1-5 bilateral were debrided in length and thickness. Callus to left heel reduced with dremmel Continue with compresion for lower extremity edema Discussed prior concern for charcot. Xrays are osteoarthritis from 2020. She is wearing diabetic shoes with no apparent change clinically. Offered repeat xrays but she declined. Patient was instructed on the continued importance of diabetic foot care along with proper diet and keeping their blood sugar under control to prevent complications. Patient is to RTC in 3-4 months. Zak Lorenzo DPM [facility] 07-31-2022 Note HNO ID: [id number] Author: Angi Ayala LPN Service: ? Author Type: LICENSED NURSE Type: Progress Notes Filed: 07/31/2022 12:33 PM Note Text: AMB ROOMING INTAKE FLOWSHEET DATA Patient presents with: Left Foot - Ulcer, Established Patient, Follow Up, Diabetic Foot Care Right Foot - Established Patient, Follow Up, Diabetic Foot Care Patient has left heel ulcer. Angi Ayala LPN [facility] 07-31-2022 History of Presen t illness Narrative Last saw Dr. Henson; 06/24/22 Subjective: Patient presents to clinic c/o painful toenails. They state that the nails are especially painful with shoe gear and pressure. Patient states that nails 1-5 b/l are painful. Patient admits to being diabetic. Has had concern for charcot in past but xrays have been more associated with arthritis. Has no pain in foot. No other pedal complaints at this time. Patient states no change in medications or medical history since last visit. Objective: Patient presents to clinic ambulating in diabetic shoes Vasc: DP and PT pulses are palpable bilateral. CFT is less than 5 seconds bilateral. Skin temperature is warm to cool proximal to distal bilateral. There is moderate edema or varicosities noted. Neuro: Protective sensation is absent to the foot and toes when tested with the 5.07 SWM bilateral. Vibratory sensation is absent at the hallux IPJ bilateral. The hallux is downgoing bilateral. Derm: Nails 1-5 b/l are painful, discolored-yellow, thick, crumbly, dystrophic and with subungal debris. Skin is of normal turgor, texture and hair growth is absent bilateral. Callus to left posterior heel. No ulceration present. Ortho: Muscle strength is 5/5 for all pedal groups tested. Ankle joint DF is decreased with the knee extended with no pain or crepitus noted. 1st MPJ ROM is decreased bilateral. Assessment: (B35.1) Onychomycosis (primary encounter diagnosis (M79.675) Pain in toe of left foot (M79.674) Pain in toe of right foot callus (E11.49) Other diabetic neurological complication associated with type 2 diabetes mellitus (HCC) Plan: Patient was seen and evaluated. Nails 1-5 bilateral were debrided in length and thickness. Callus to left heel reduced with dremmel Continue with compresion for lower extremity edema Discussed prior concern for charcot. Xrays are osteoarthritis from 2020. She is wearing diabetic shoes with no apparent change clinically. Offered repeat xrays but she declined. Patient was instructed on the continued importance of diabetic foot care along with proper diet and keeping their blood sugar under control to prevent complications. Patient is to RTC in 3-4 months. Zak Lorenzo DPM AMB ROOMING INTAKE FLOWSHEET DATA Patient presents with: Left Foot - Ulcer, Established Patient, Follow Up, Diabetic Foot Care Right Foot - Established Patient, Follow Up, Diabetic Foot Care Patient has left heel ulcer. Angi Ayala LPN documented in this encounter [facility] 07-31-2022 Instructions Zak Lorenzo - 07/31/2022 11:16 AM EDT Diabetes Foot Care Instructions When you have diabetes, proper foot care is very important. Poor foot care may lead to amputation of a foot or leg. As a person with diabetes, you are more vulnerable to foot problems, because diabetes can damage your nerves and reduce blood flow to your feet. Here are some diabetes foot care tips to follow: Wash and Dry Your Feet Daily Use mild soaps Use warm water Pat your skin dry; do not rub. Thoroughly dry your feet. After washing, use lotion on your feet to prevent cracking. Do not put lotion between your toes. Examine Your Feet Each Day Check the tops and bottoms of your feet. Have someone else look at your feet if you cannot see them. Check for dry, cracked skin. Look for blisters, cuts, scratches, or other sores. Check for redness, increased warmth, or tenderness when touching any area of your feet. Check for ingrown toenails, corns, and calluses. If you get a blister or sore from your shoes, do not pop it. Apply a bandage and wear a different pair of shoes. Take Care of Your Toenails Cut toenails after bathing, when they are soft. Cut toenails straight across and smooth with a nail file. Avoid cutting into the corners of toes. Do not cut cuticles. If you have neuropathy (or decreased sensation in your feet) a package designer should always cut your toenails. Be Careful When Exercising Walk and exercise in comfortable shoes. Do not exercise when you have open sores on your feet. Protect Your Feet With Shoes and Socks Never go barefoot. Always protect your feet by wearing shoes or hard-soled slippers or footwear. Avoid shoes with high heels and pointed toes. Avoid shoes that expose your toes or heels (such as open-toed shoes or sandals). These types of shoes increase your risk for injury and potential infections. Try on new footwear with the type of socks you usually wear. Do not wear new shoes for more than an hour at a time. Change your socks daily. Look and feel inside your shoes before putting them on to make sure there are no foreign objects or rough areas. Avoid tight socks. Wear natural-fiber socks (cotton, wool, or a cotton-wool blend). Wear special shoes if your health care provider recommends them. Wear shoes/boots that will protect your feet from various weather conditions (cold, moisture, etc.). Make sure your shoes fit properly. If you have neuropathy (nerve damage), you may not notice that your shoes are too tight. Perform the footwear test described below. Footwear Test Use this simple test to see if your shoes fit correctly: Stand on a piece of paper. (Make sure you are standing and not sitting, because your foot changes shape when you stand.) Trace the outline of your foot. Trace the outline of your shoe. Compare the tracings: Is the shoe too narrow? Is your foot crammed into the shoe? The shoe should be at least 1/2 inch longer than your longest toe and as wide as your foot. Proper Shoe Choices The following types of shoes are best for people with diabetes Closed toes and heels Leather uppers without a seam inside At least 1/2 inch extra space at the end of your longest toe Inside of shoe should be soft with no rough areas Outer sole should be made of stiff material Shoes should be at least as wide as your feet Tips for Foot Care in Diabetes Don't wait to treat a minor foot problem if you have diabetes. Follow your health care provider's guidelines and first aid guidelines. Report foot injuries and infections to your health care provider immediately. Check water temperature with your elbow, not your foot. Do not use a heating pad on your feet. Do not cross your legs. Do not self-treat your corns, calluses, or other foot problems. Go to your health care provider or package designer to treat these conditions. documented in this encounter [facility] 07-15-2022 Miscellaneous Notes Phoned patient's daughter Julia and advised of PCP's message. Advised daughter to monitor medications and when 0 refills contact office to request refills. I have reordered medications it looks like she is due for. Please contact patient/pharmacy to see if she is in need of any other refills. Julia is calling on behalf of Shanice. She states [facility] told her that they have tried to reach us about refills for Shanice. She does not know which meds need refills and does not have a phone number to return a call to [facility]. Please call the general pharmacy number at [phone] documented in this encounter [facility] 07-03-2022 Miscellaneous Notes TC to Edith [facility] [place]. and gave PCP update. Leny Bennett LPN Agree. Edith [facility] called in and reports they need to extend [facility] orders to see Pt once a week for 4 weeks for wound care and education. documented in this encounter [facility] 07-01-2022 Miscellaneous Notes Patient caregiver in and given copy of results for patient review. Message left for patient/patient's daughter to return call for result update. ----- Message from Rylee Henson MD sent at 06/28/2022 8:41 AM EDT ----- Urine drug screen positive for oxycodone as prescribed. Otherwise normal drug screen. documented in this encounter [facility] 06-26-2022 Miscellaneous Notes Order faxed to [phone] x3 with NG signal. Dulce telephoned and asked for alternate number, advised their fax wasn't working it seemed. Faxed to [employer] at [phone] where last order and OV was faxed to. Retried first number as well. Both went through. Patients daughter telephoned and notified. Candida Card LPN Order in my outbox. Please fax as requested and let family know it was faxed. Chandrika Almonte APRN.SPIKE Patient's daughter Dulce calls and states that [facility] is still needing refill order for patient's Halima Sensor. Dulce aware that order was faxed on 06/13/2022. Dulce states that [facility] was unable to fill because she was told that the order was not signed by provider. Dulce requesting a signed order and office notes from 06/24/2022 to be faxed to [phone]. Please review and advise, Deisy Will RN documented in this encounter [facility] 06-24-2022 Note HNO ID: [id number] Author: Rylee Henson MD Service: ? Author Type: Physician Type: Progress Notes Filed: 06/26/2022 11:35 AM Note Text: Chief Complaint Patient presents with: Follow Up: 6 month HPI Shanice Patel is a 87 year old female who presents here today for Above Complaints. Patient accompanied today by caregiver Anneliese. Patient has not had any falls since her last OV in March when she landed on her knee. DIABETES MELLITUS: Ms. Patel was last seen 6 months ago. Since our last visit she denies excessive thirst or increased frequency of urination, numbness, tingling or pain in extremities, new or unusual visual symptoms, and low sugar/hypoglycemic reactions. Follows a diabetic diet generally not very much. She is compliant with medication(s) and is tolerating med(s) without any side effects. She reports checking her glucose on a four times a day schedule with sugars in the <150 range. 30 day average 141. Patient's last HgA1C was 06/04/2022 and was 6.6. Hemoglobin A1C (%) Date Value 11/09/2021 6.7 07/25/2021 6.8 12/15/2020 7.6 07/10/2020 7.8 ) Last Ophthalmology exam was within the past 12 months Last Podiatry exam was within the past 12 months [facility] HH out 1 time per week for the next 2-3 weeks for right back wound. Changing dressing on a daily basis and is applying adaptive dressing. Has follow up with wound center tomorrow. Sees them weekly. States wound is not improving. Has been evaluated by general surgery and dermatology with Dr. Ferrara for this as well. Told by derm that the lesion on her back was scar tissue instead of lipoma. No changes to regimen at last OV with nephrology Dr. Gandhi last week. 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 BP elevated on initial check today. Taking all medications as prescribed. Did not take her lasix this morning. Hypothyroidism: Taking synthroid first thing in the morning as directed. TSH in good range on 06/04 at 06/15. Asymptomatic. Gout: no flares on her allopurinol. Patient states that she is still taking her Percocet 3 times per day as prescribed. Last dose was this morning. Does help with her back pain. States that it helps her to ambulate with her walker and to complete her daily back and leg exercises. Denies illicit drug use. Due for controlled substance agreement and urine drug screen. Past medical history, appointments, medications, allergies reviewed. Previous Medical History PAST MEDICAL HISTORY Diagnosis Date Anemia Bilateral lower extremity edema CHF (congestive heart failure) ([facility]) [facility]. Chronic diastolic heart failure Chronic lower back pain DIVERTICULOSIS Essential hypertension, benign Gangrene ([facility]) 03/22/2005 Gastric ulcer, unspecified as acute or chronic, without mention of hemorrhage, perforation, or obstruction Gout Hypothyroidism Inflammatory and toxic neuropathy, unspecified Iron deficiency anemia, unspecified Lumbar spinal stenosis Macular degeneration Osteoarthritis Osteoporosis 01/25/2009 BMD 01/16/09, No sig change from baseline. Proliferative diabetic retinopathy, both eyes ([facility]) inactive Renal failure, unspecified Dr. Gandhi Thrombocytopenia, unspecified ([facility]) Type II 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, not stated as uncontrolled(250.60) Ulcer of other part of foot Previous Surgical History PAST SURGICAL HISTORY Procedure Laterality Date APPENDECTOMY CHOLECYSTECTOMY Cholecystectomy COLONOSCOPY FLX DX W/COLLJ SPEC WHEN PFRMD 06/25/2001 Colonoscopy COLONOSCOPY FLX DX W/COLLJ SPEC WHEN PFRMD 05/16/2016 Colonoscopy DILATION AND CURETTAGE DXAND/THER NONOBSTETRIC Dilation AND curettage ENDOMETRIAL BX W/WO ENDOCERVIX BX W/O DILAT SPX 2016 x2. benign and then repeat was poor specimen. ESOPHAGOGASTRODUODENOSCOPY TRANSORAL DIAGNOSTIC 06/25/2001 EGD PAST SURGICAL HISTORY OF LUMBAR LAMINECTOMY-L3,L4,L5 PAST SURGICAL HISTORY OF ECHOCARDIOGRAM TONSILLECTOMY PRIMARY/SECONDARY Tonsillectomy Family History FAMILY HISTORY Problem Relation Age of Onset Cancer Mother Heart Father Hypertension Father Stroke Father Breast Cancer Maternal Aunt Cancer Maternal Uncle LUNG CANCER X 2 Stroke Sister Patient Allergies ALLERGIES Allergen Reactions Ivp Dye [Iodine] Anaphylaxis Prinzide [Lisinopri* Cough Faby Inhibitors Cough cough Mucinex [Guaifenesi* Unknown Neomycin Rash Current Medications Current Outpatient Medications on File Prior to Visit Medication Sig oxyCODONE-acetaminophen (PERCOCET) 10-325 mg tablet Take 1 tablet by mouth every 8 hours as needed for pain for up to 30 days. benzonatate (TESSALON PERLES) 100 mg capsule Take 1 capsule by mouth three times daily as needed for cough. insulin aspart U-100 (NOVOLOG FLEXPEN U-100 INSULIN) 100 unit/mL (3 mL) Inject subcutaneously. WITH FIRST BITE OF FOOD, 4 UNITS W/BREAKFAST, 4 UNITS W/LUNCH, 4 UNITS W/DINNER (BOX OF 5 (more content not included)... [facility] 06-24-2022 History of Presen t illness Narrative Chief Complaint Patient presents with: Follow Up: 6 month HPI Shanice Patel is a 87 year old female who presents here today for Above Complaints. Patient accompanied today by caregiver Anneliese. Patient has not had any falls since her last OV in March when she landed on her knee. DIABETES MELLITUS: Ms. Patel was last seen 6 months ago. Since our last visit she denies excessive thirst or increased frequency of urination, numbness, tingling or pain in extremities, new or unusual visual symptoms, and low sugar/hypoglycemic reactions. Follows a diabetic diet generally not very much. She is compliant with medication(s) and is tolerating med(s) without any side effects. She reports checking her glucose on a four times a day schedule with sugars in the <150 range. 30 day average 141. Patient's last HgA1C was 06/04/2022 and was 6.6. Hemoglobin A1C (%) Date Value 11/09/2021 6.7 07/25/2021 6.8 12/15/2020 7.6 07/10/2020 7.8 ) Last Ophthalmology exam was within the past 12 months Last Podiatry exam was within the past 12 months [facility] HH out 1 time per week for the next 2-3 weeks for right back wound. Changing dressing on a daily basis and is applying adaptive dressing. Has follow up with wound center tomorrow. Sees them weekly. States wound is not improving. Has been evaluated by general surgery and dermatology with Dr. Ferrara for this as well. Told by derm that the lesion on her back was scar tissue instead of lipoma. No changes to regimen at last OV with nephrology Dr. Gandhi last week. 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 BP elevated on initial check today. Taking all medications as prescribed. Did not take her lasix this morning. Hypothyroidism: Taking synthroid first thing in the morning as directed. TSH in good range on 06/04 at 06/15. Asymptomatic. Gout: no flares on her allopurinol. Patient states that she is still taking her Percocet 3 times per day as prescribed. Last dose was this morning. Does help with her back pain. States that it helps her to ambulate with her walker and to complete her daily back and leg exercises. Denies illicit drug use. Due for controlled substance agreement and urine drug screen. Past medical history, appointments, medications, allergies reviewed. Previous Medical History PAST MEDICAL HISTORY Diagnosis Date Anemia Bilateral lower extremity edema CHF (congestive heart failure) ([facility]) [facility]. Chronic diastolic heart failure Chronic lower back pain DIVERTICULOSIS Essential hypertension, benign Gangrene ([facility]LY [facility]) 03/22/2005 Gastric ulcer, unspecified as acute or chronic, without mention of hemorrhage, perforation, or obstruction Gout Hypothyroidism Inflammatory and toxic neuropathy, unspecified Iron deficiency anemia, unspecified Lumbar spinal stenosis Macular degeneration Osteoarthritis Osteoporosis 01/25/2009 BMD 01/16/09, No sig change from baseline. Proliferative diabetic retinopathy, both eyes ([facility]) inactive Renal failure, unspecified Dr. Gandhi Thrombocytopenia, unspecified ([facility]) Type II 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, not stated as uncontrolled(250.60) Ulcer of other part of foot Previous Surgical History PAST SURGICAL HISTORY Procedure Laterality Date APPENDECTOMY CHOLECYSTECTOMY Cholecystectomy COLONOSCOPY FLX DX W/COLLJ SPEC WHEN PFRMD 06/25/2001 Colonoscopy COLONOSCOPY FLX DX W/COLLJ SPEC WHEN PFRMD 05/16/2016 Colonoscopy DILATION & CURETTAGE DX&/THER NONOBSTETRIC Dilation & curettage ENDOMETRIAL BX W/WO ENDOCERVIX BX W/O DILAT SPX 2016 x2. benign and then repeat was poor specimen. ESOPHAGOGASTRODUODENOSCOPY TRANSORAL DIAGNOSTIC 06/25/2001 EGD PAST SURGICAL HISTORY OF LUMBAR LAMINECTOMY-L3,L4,L5 PAST SURGICAL HISTORY OF ECHOCARDIOGRAM TONSILLECTOMY PRIMARY/SECONDARY <AGE 12 Tonsillectomy Family History FAMILY HISTORY Problem Relation Age of Onset Cancer Mother Heart Father Hypertension Father Stroke Father Breast Cancer Maternal Aunt Cancer Maternal Uncle LUNG CANCER X 2 Stroke Sister Patient Allergies ALLERGIES Allergen Reactions Ivp Dye [Iodine] Anaphylaxis Prinzide [Lisinopri* Cough Faby Inhibitors Cough cough Mucinex [Guaifenesi* Unknown Neomycin Rash Current Medications Current Outpatient Medications on File Prior to Visit Medication Sig oxyCODONE-acetaminophen (PERCOCET) 10-325 mg tablet Take 1 tablet by mouth every 8 hours as needed for pain for up to 30 days. benzonatate (TESSALON PERLES) 100 mg capsule Take 1 capsule by mouth three times daily as needed for cough. insulin aspart U-100 (NOVOLOG FLEXPEN U-100 INSULIN) 100 unit/mL (3 mL) Inject subcutaneously. WITH FIRST BITE OF FOOD, 4 UNITS W/BREAKFAST, 4 UNITS W/LUNCH, 4 UNITS W/DINNER (BOX OF 5 CARTRIDGES) Insulin Reddick, Disposable, (NOVOFINE 32) 32 gauge x 1/4 Inject 1 Each subcutaneously four times daily. Use one needle with each insulin dose (4 times per day) Dx: 250.00 Insulin: yes flash glucose sensor (FREESTYLE HALIMA 14 DAY SENSOR) kit 1 Each every 2 weeks. furosemide (LASIX) 40 mg tablet Take 1 tablet by mouth once daily. amLODIPine (NORVASC) 10 mg tablet Take 1 tablet by mouth once daily. levothyroxine (SYNTHROID) 100 mcg tablet Take 1 tablet by mouth daily before breakfast. losartan (COZAAR) 25 mg tablet Take 1 tablet by mouth once daily. Per Dr. Gandhi, nephrology azelastine (ASTELIN, ASTEPRO) 0.1% nasal spray Use 2 Sprays in each nostril twice daily. insulin glargine (LANTUS SOLOSTAR U-100 INSULIN) 100 unit/mL (3 mL) Take 4 units daily (box of 5 pens). IFEREX 150 150 mg iron capsule Take 1 capsule by mouth every other day. ondansetron orally disintegrating (ZOFRAN ODT) 4 mg disintegrating tablet Take 1 tablet by mouth every 8 hours As Needed for nausea and vomiting pantoprazole DR (PROTONIX) 40 mg tablet Take by mouth. montelukast (SINGULAIR) 10 mg tablet Take 1 tablet by mouth daily at bedtime. allopurinol (ZYLOPRIM) 100 mg tablet Take 1 tablet by mouth once daily. folic acid 1 mg tablet Take 1 tablet by mouth twice daily. meclizine (ANTIVERT) 12.5 mg tab Take 1 tablet by mouth twice daily as needed (dizziness). ergocalciferol 50,000 unit capsule (VITAMIN D2, DRISDOL) Take 1 capsule by mouth once every month. TAKES ON FIRST DAY OF MONTH albuterol (PROVENTIL) 2.5 mg /3 mL (0.083 %) nebulizer solution Use 3 mL via nebulizer every 4 hours as needed for wheezing/shortness of breath. Use over 5-15minutes. flash glucose scanning reader (StorSimpleSTYLE HALIMA 14 DAY READER) Checks blood sugar 4 times daily polyethylene glycol 3350 (MIRALAX, GLYCOLAX) 17 gram packet Take 1 Packet by mouth twice daily as needed (constipation). senna (SENNA) 8.6 mg tab Take 1 tablet by mouth twice daily as needed (constipation). flash glucose sensor (FREESTYLE HALIMA 10 DAY SENSOR) kit 1 Each four times daily. sucralfate (CARAFATE) 1 gram tablet Take 1 tablet by mouth twice daily before meals. Patient takes as needed (Patient not taking: No sig reported) clobetasol (TEMOVATE) 0.05 % ointment Apply to affected area bid x 6 weeks then use weekly for maintenance (Patient not taking: Reported on 03/19/2022) diclofenac sodium (VOLTAREN) 1 % topical gel Apply 4 g to affected area four times daily. flash glucose scanning reader (FREESTYLE HALIMA 10 DAY READER) misc 1 Kit four times daily. COMPOUNDED PRESCRIPTION Zero G boot heel protector docusate sodium (COLACE) 100 mg capsule Take 1 capsule by mouth twice daily. Compression Knee Highs KNEE HIGH COMPRESSION STOCKINGS with zippers 30-40 MM. DX: I83.12 I83.11 I87.303 aspirin, enteric coated (ASPIRIN, ENTERIC COATED) 81 mg EC tablet Take 1 tablet by mouth twice daily. biotin 5 mg caspule Take 1 capsule by mouth once daily. ped multivit #43-iron fumarate (FLINTSTONES COMPLETE, IRON,) 18 mg iron chew Take 1 tablet by mouth once daily. No current facility-administered medications on file prior to visit. Social History Social History Tobacco Use Smoking status: Never Smokeless tobacco: Never Vaping Use Vaping Use: Never used Substance Use Topics Alcohol use: No Drug use: No Review of Symptoms REVIEW OF SYSTEMS GENERAL: No weight loss, malaise or fevers RESPIRATORY: Negative for cough, hemoptysis, wheezing, COPD, dyspnea or shortness of breath CARDIOVASCULAR: Negative for chest pain, leg swelling, hypertension, CHF or palpitations GI: No nausea, vomiting, or diarrhea SKIN: See HPI EXAM: BP 142/68 Pulse 72 Resp 16 SpO2 99% General Appearance: Well appearing, alert, in no acute distress, well-hydrated, well nourished. Seated in wheelchair. Skin: Skin color, texture, turgor normal, no suspicious rashes or lesions. Wound on her right mid/lower back is dressed with adhesive bandage which was not removed. No surrounding erythema or TTP. Lungs: Lungs clear to auscultation. No wheezing, rhonchi, rales.. Heart: RRR without murmur, gallop, or rubs. No ectopy. Abdomen: Normal abdominal exam, Abdomen soft, non-tender. Bowel sounds normal. No masses, organomegaly. Extremities: No deformities, edema, skin discoloration, clubbing or cyanosis. Good capillary refill. . Health Maintenance List COVID-19 VACCINE(1) Never done SHINGRIX VACCINE(2 of 2) due on 12/10/2017 INFLUENZA(1) due on 12/06/2021 DILATED RETINAL EXAM due on 12/22/2021 ADVANCE DIRECTIVE DISCUSSION Never done DEPRESSION ASSESSMENT Never done HBA1C due on 05/12/2022 LDL CHOLESTEROL due on 11/09/2022 URINE ALBUMIN:CREATININE RATIO due on 11/15/2022 DIABETIC FOOT EXAM due on 11/19/2022 DTAP,TDAP,TD(5 - Td or Tdap) due on 03/18/2028 BONE DENSITY Completed PNEUMOCOCCAL: 65+ Completed Data reviewed Component Latest Ref Rng & Units 11/09/2021 11/15/2021 03/27/2022 WBC 3.70 - 11.00 k/uL 7.85 RBC 3.90 - 5.20 m/uL 3.44 (L) Hemoglobin 11.5 - 15.5 g/dL 10.7 (L) Hematocrit 36.0 - 46.0 % 32.5 (L) MCV 80.0 - 100.0 fL 94.5 MCH 26.0 - 34.0 pg 31.1 MCHC 30.5 - 36.0 g/dL 32.9 RDW-CV 11.5 - 15.0 % 12.6 Platelet Count 150 - 400 k/uL 289 MPV 9.0 - 12.7 fL 9.9 Neut% % 82.7 Abs Neut (ANC) 1.45 - 7.50 k/uL 6.49 Lymph% % 7.6 Abs Lymph 1.00 - 4.00 k/uL 0.60 (L) Winkler% % 7.8 Abs Winkler <0.87 k/uL 0.61 Eosin% % 1.0 Abs Eosin <0.46 k/uL 0.08 Baso% % 0.6 Abs Baso <0.11 k/uL 0.05 Immature Gran % % 0.3 IMMATURE GRANS (ABS) <0.10 k/uL <0.03 NRBC /100 WBC 0.0 Absolute nRBC <0.01 k/uL <0.01 DTYPE Auto Protein, Total 6.3 - 8.0 g/dL 7.2 7.0 Albumin 3.9 - 4.9 g/dL 4.2 3.4 (L) Calcium 8.5 - 10.2 mg/dL 9.8 9.2 Bilirubin, Total 0.2 - 1.3 mg/dL 0.5 0.5 Alkaline Phosphatase 34 - 123 U/L 86 196 (H) AST 13 - 35 U/L 22 30 ALT 7 - 38 U/L 10 27 Glucose 74 - 99 mg/dL 150 (H) 225 (H) BUN 7 - 21 mg/dL 22 (H) 25 (H) Creatinine 0.58 - 0.96 mg/dL 0.91 1.13 (H) Sodium 136 - 144 mmol/L 138 133 (L) Potassium 3.7 - 5.1 mmol/L 4.4 4.7 Chloride 97 - 105 mmol/L 98 98 CO2 22 - 30 mmol/L 30 26 Anion Gap 9 - 18 mmol/L 10 9 eGFR >=60 mL/min/1.73m 61 47 (L) Total Cholesterol, Nonfasting <200 mg/dL 175 Triglycerides, Nonfasting <150 mg/dL 58 HDL Cholesterol, Nonfasting >39 mg/dL 69 LDL Cholesterol, Nonfasting <100 mg/dL 94 Non HDL Cholesterol, Nonfasting <130 mg/dL 106 VLDL Cholesterol, Nonfasting <30 mg/dL 12 Total Chol/HDL Ratio, Nonfasting <5.10 mg/dL 2.54 LDL/HDL Ratio, Nonfasting <2.54 mg/dL 1.36 Creatinine, Ur Random (UCRR) 20.0 - 300.0 mg/dL 96.9 Albumin, Urine Random mg/L 23.4 Albumin/Creat Ratio <30 mg/g 24 Hemoglobin A1C 4.3 - 5.6 % 6.7 (H) Estimated Average Glucose mg/dL 146 NT Pro BNP <450 pg/mL 2,412 (H) ASSESSMENT/PLAN: 1. Type 2 diabetes mellitus with diabetic peripheral angiopathy without gangrene, with long-term current use of insulin (HCC) - ICD9: 250.70, 443.81, V58.67, ICD10: E11.51, Z79.4 (primary diagnosis) - Controlled - Continue current medications - Blood glucose monitoring on a four times daily schedule - Counseled on healthy diet and regular exercise - Discussed need for and benefit of weight loss. No weight on file for this encounter. - Discussed diabetic education issues of diabetes complications and monitoring required, hypoglycemic/hyperglycemic symptoms, medication-specific side effects and monitoring, and diabetic sick day rules 2. Stage 3b chronic kidney disease (HCC) - ICD9: 585.3, ICD10: N18.32 - eGFR: Stable - Counseled on avoiding regular use of NSAIDs, adequate hydration, potential risk of IV dye - Recommend maintaining A1c < 7% - Counseled on renal diet (low sodium/low potassium/low phosphorus) - Follow up with nephrology 3. Chronic diastolic congestive heart failure (HCC) - ICD9: 428.32, 428.0, ICD10: I50.32 Asymptomatic on current regimen. No changes. 4. Idiopathic gout of ankle, unspecified chronicity, unspecified laterality - ICD9: 274.9, ICD10: M10.079 No recent flares with allopurinol. Continue current dosage. 5. Spinal stenosis of lumbar region, unspecified whether neurogenic claudication present - ICD9: 724.02, ICD10: M48.061 Pain controlled with Percocet as prescribed. No neurogenic claudication. Helps her to complete ADLs. Controlled substance agreement updated. Will obtain urine drug screen today. 6. Chronic bilateral low back pain with bilateral sciatica - ICD9: 724.2, 724.3, 338.29, ICD10: M54.42, M54.41, G89.29 See above 7. Controlled substance agreement signed - ICD9: V58.69, ICD10: Z79.899 - TOX SCREEN ROUT UR - PAIN PANEL, UR QUANT - PAIN PANEL, UR QUANT - SPECIMEN VALIDITY, URINE 8. Peripheral artery disease (HCC) - ICD9: 443.9, ICD10: I73.9 Asymptomatic. Continue ASA and statin. Wearing compression stockings daily. 9. Acquired hypothyroidism - ICD9: 244.9, ICD10: E03.9 - Instructed patient on importance of taking on an empty stomach either first thing in the morning or at bedtime. - continue current dose of Synthroid 0.100 mg 10. Class 1 obesity due to excess calories with serious comorbidity and body mass index (BMI) of 32.0 to 32.9 in adult - ICD9: 278.00, V85.32, ICD10: E66.09, Z68.32 Stable - Behavioral intervention 11. Skin lesion of back - ICD9: 709.9, ICD10: L98.9 Benign lesion based on biopsy from dermatology. Continue with recommendations per wound care. Red flags for re-assessment reviewed with patient in detail. I spent a total of 45 minutes on the date of the service which included preparing to see the patient, [id number] patient care, completing clinical documentation, obtaining and/or reviewing separately obtained history, performing a medically appropriate examination, counseling and educating the patient/family/caregiver, and ordering medications, tests, or procedures. Rylee Henson MD documented in this encounter [facility] 06-17-2022 Miscellaneous Notes Spoke with Dulce patient's daughter and advised everything was faxed on 06/13/22. She stated she would call and follow up. PCP completed form in question on 06/13/22 at which time it was faxed. Included patient's last OV note for 03/27/22. Patient's son is calling to inform us that [employer] is calling to request a refill on patient's diabetic sensor. They need the prescription and last chart notes faxed to: [phone] For any questions please call her daughter, Dulce [phone] documented in this encounter [facility] 06-14-2022 Miscellaneous Notes [employer] forms completed by PCP. Form and most recent OV forwarded to fax number provided. Ok thanks, will review and complete. [employer] forms placed on provider's desk for completion. Reviewed. Daughter stated patient's caregiver, Elena, has been causing issues with patients healthcare. Patient does not want to change providers and family will be rescheduling 6 month follow up. Looks like they cancelled her last OV and there is a note that she is refusing further OV's. I dont have any forms on my desk that have not been completed. She is on chronic narcotic medication. We should remind them that if patient is not being seen, we will need to wean her off of this medication. Julia calls back and reports that [employer] needs forms, OV note, and orders faxed to . Soheila Beard, [place] Julia, daughter will check and get back to us if regarding the forms from [employer]. Mayela Jordan LPN Left message for Julia to call back Julianne Barron Ma Elena, patient's caregiver, returned call. Said she doesn't think she needs a whole new halima system. She thinks she only needs insulin. Said to call patient's daughter, Julia, at [phone] to confirm what is needed. Elena can be reached at [phone]. Received forms from [employer] for halima system and supplies. Left message for patient to call back to verify this is requested; if so will complete and fax Julianne Barron Ma documented in this encounter [facility] 06-06-2022 Miscellaneous Notes Phoned Edith and went over notes from Dr Henson with understanding. OK for additional visits. Edith with [facility] calling to request additional visits for Nursing wound care for patient's right lower back wound. Requesting pt to be seen 1x/week for 4 more weeks. Please call Edith with verbal order for approval at [phone]. Thank you. documented in this encounter [facility] 06-03-2022 Miscellaneous Notes PDMP website checked and validated. All prescriptions have been APPROPRIATELY filled. No suspicious activity was identified. 06/03/2022 by Rylee Henson MD Patient has been identified by name and date of : Yes, Provider Dr. Henson Date 06/03/22 Time 11:52 am Patient phones for refill(s): Requested Prescriptions Pending Prescriptions Disp Refills oxyCODONE-acetaminophen (PERCOCET) 10-325 mg tablet 90 tablet 0 Sig: Take 1 tablet by mouth every 8 hours as needed for pain for up to 30 days. Date of last office visit in primary care: 03/27/22 next apt 06/17/22 Last 2 Encounter Wt Readings: Date: Wt: 03/04/2022 81.6 kg (180 lb) 01/30/2022 0 kg () Previous labs/tests for medication: Not applicable Thank you. Mayela Jordan LPN documented in this encounter [facility] 05-29-2022 Miscellaneous Notes Patient was notified and will do lab work. Faxed orders to [facility] Julianne Barron Ma She has pending labs from 03/29 and 11/19 which need completed. Patient calling said she has to do labs for Dr Gandhi and asking if PCP wants her to do any labs for him? She had labs done late March for Chandrika Granadoslogdarrell. Please advise documented in this encounter [facility] 05-24-2022 Miscellaneous Notes Phoned patient's daughter Julia again and message left advising her that [facility] nurse aware of provider's message and she could review with her as well if she chose not to return call. Phoned [facility] office and spoke with Janeth. Reviewed provider's message in detail and advised had attempted to contact patient's daughter but only able to leave message on number listed for Julia. She took detailed message and reported she would contact Janett ( nurse who reported issue)since she was working today and review message with her as well. Phoned patient's daughter Julia Rodriguez as [facility] nurse advised to call patient POA and Juila is listed as 1st alt contact. Message left for her to return call for update. If patient has multiple episodes of watery diarrhea per day with abdominal pain, fever/chills, mucous in stools would recommend OV for evaluation. Without those symptoms, I would have her stay off miralax for now, take OTC imodium and increase fiber in her diet. If she develops signs of dehydration with lightheadedness/dizziness, BP <100/60, HR >100 would recommend ER evaluation instead. Janett, [facility] nurse, calls to report pt with diarrhea x 2 weeks. No other symptoms- no vomiting, abd pain, etc. Tasha does not a slight decrease in appetite. Stools are brown, liquid like. Store Facility Technician stated to Janett that it definitely does NOT smell like c-diff . Of note, pt was constipated prior to starting with diarrhea and was taking Miralax daily. Jaentt states Miralax was just stopped 2 days ago. Janett asking if PCP can recommend anything otc or rx for pt? Please advise and notify pt POA. Connor Aguero LPN documented in this encounter [facility] 05-15-2022 Miscellaneous Notes Edith notified of verbal order for continuation of wound care x3 weeks. Candida Card LPN Verbal order to continue with wound care. Chandrika Almonte APRN.SPIKE Franki from [facility] Home Health calling asking for verbal order for senior living continuation of wound care, would like to add 1 visit weekly for 3 weeks. Aware PCP is out of office. Please advise documented in this encounter [facility] 05-02-2022 Miscellaneous Notes PDMP website checked and validated. All prescriptions have been APPROPRIATELY filled. No suspicious activity was identified. 05/02/2022 by Rylee Henson MD Patient has been identified by name and date of : Yes Requested Prescriptions Pending Prescriptions Disp Refills oxyCODONE-acetaminophen (PERCOCET) 10-325 mg tablet 90 tablet 0 Sig: Take 1 tablet by mouth every 8 hours as needed for pain for up to 30 days. RX INSTRUCTIONS: Patient aware RX will be sent to pharmacy. No need to notify patient. Kari Montenegro documented in this encounter [facility] 04-30-2022 Miscellaneous Notes Referral faxed to [facility]. Called and made nurse Edith with [facility] know. Requested copy be faxed to their office as well. Copy faxed to [phone] at this time. Candida Card LPN I have completed referral form for Wound Center. Please fax to [facility] and let [facility] know this was completed. Chandrika Almonte APRN.SPIKE Edith with [facility] HH calls to request a referral to [facility] wound center for a second opinion of wound to right lower back. She reports that area is still open and not healing. Please review and advise, Soheila Beard RN documented in this encounter [facility] 04-30-2022 Note HNO ID: [id number] Author: Chandrika Almonte APRN.CNP Service: ? Author Type: Nurse Practitioner Type: Progress Notes Filed: 04/30/2022 12:13 PM Note Text: 04/30/2022 Patient presents with: Cough SUBJECTIVE: This is a 87 year old, accompanied by caregiver, that is here today for Above Complaints. Continues with cough that she had before . Completed course of antibiotic in March for pneumonia. Overall feels improved. Cough can be productive at times with thick white sputum. Patient reports it can be difficulty to cough it up. Taking OTC robitussin with mild relief. Admits to rhinorrhea. Denies fevers, chills, body aches, headaches, nasal congestion, sore throat, SOB< dyspnea, wheezing, chest pain, palpitations, leg swelling, nausea, vomiting or diarrhea PAST MEDICAL HISTORY Diagnosis Date Anemia Bilateral lower extremity edema CHF (congestive heart failure) ([facility]) [facility]. Chronic diastolic heart failure Chronic lower back pain DIVERTICULOSIS Essential hypertension, benign Gangrene ([facility]) 03/22/2005 Gastric ulcer, unspecified as acute or chronic, without mention of hemorrhage, perforation, or obstruction Gout Hypothyroidism Inflammatory and toxic neuropathy, unspecified Iron deficiency anemia, unspecified Lumbar spinal stenosis Macular degeneration Osteoarthritis Osteoporosis 01/25/2009 BMD 01/16/09, No sig change from baseline. Proliferative diabetic retinopathy, both eyes ([facility]) inactive Renal failure, unspecified Dr. Gandhi Thrombocytopenia, unspecified ([facility]) Type II 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, not stated as uncontrolled(250.60) Ulcer of other part of foot ALLERGIES Ivp Dye [Iodine], Prinzide [Lisinopril-Hydrochlorothiazide] , Faby Inhibitors, and Neomycin MEDICATIONS Current Outpatient Medications Medication Sig insulin aspart U-100 (NOVOLOG FLEXPEN U-100 INSULIN) 100 unit/mL (3 mL) Inject subcutaneously. WITH FIRST BITE OF FOOD, 4 UNITS W/BREAKFAST, 4 UNITS W/LUNCH, 4 UNITS W/DINNER (BOX OF 5 CARTRIDGES) oxyCODONE-acetaminophen (PERCOCET) 10-325 mg tablet Take 1 tablet by mouth every 8 hours as needed for pain for up to 30 days. Insulin Reddick, Disposable, (NOVOFINE 32) 32 gauge x 1/4 Inject 1 Each subcutaneously four times daily. Use one needle with each insulin dose (4 times per day) Dx: 250.00 Insulin: yes flash glucose sensor (FREESTYLE HALIMA 14 DAY SENSOR) kit 1 Each every 2 weeks. furosemide (LASIX) 40 mg tablet Take 1 tablet by mouth once daily. amLODIPine (NORVASC) 10 mg tablet Take 1 tablet by mouth once daily. levothyroxine (SYNTHROID) 100 mcg tablet Take 1 tablet by mouth daily before breakfast. losartan (COZAAR) 25 mg tablet Take 1 tablet by mouth once daily. Per Dr. Gandhi, nephrology azelastine (ASTELIN, ASTEPRO) 0.1% nasal spray Use 2 Sprays in each nostril twice daily. insulin glargine (LANTUS SOLOSTAR U-100 INSULIN) 100 unit/mL (3 mL) Take 4 units daily (box of 5 pens). IFEREX 150 150 mg iron capsule Take 1 capsule by mouth every other day. ondansetron orally disintegrating (ZOFRAN ODT) 4 mg disintegrating tablet Take 1 tablet by mouth every 8 hours As Needed for nausea and vomiting pantoprazole DR (PROTONIX) 40 mg tablet Take by mouth. montelukast (SINGULAIR) 10 mg tablet Take 1 tablet by mouth daily at bedtime. allopurinol (ZYLOPRIM) 100 mg tablet Take 1 tablet by mouth once daily. folic acid 1 mg tablet Take 1 tablet by mouth twice daily. meclizine (ANTIVERT) 12.5 mg tab Take 1 tablet by mouth twice daily as needed (dizziness). ergocalciferol 50,000 unit capsule (VITAMIN D2, DRISDOL) Take 1 capsule by mouth once every month. TAKES ON FIRST DAY OF MONTH albuterol (PROVENTIL) 2.5 mg /3 mL (0.083 %) nebulizer solution Use 3 mL via nebulizer every 4 hours as needed for wheezing/shortness of breath. Use over 5-15minutes. flash glucose scanning reader ([employer] HALIMA 14 DAY READER) Checks blood sugar 4 times daily polyethylene glycol 3350 (MIRALAX, GLYCOLAX) 17 gram packet Take 1 Packet by mouth twice daily as needed (constipation). senna (SENNA) 8.6 mg tab Take 1 tablet by mouth twice daily as needed (constipation). flash glucose sensor (StorSimpleSTYLE HALIMA 10 DAY SENSOR) kit 1 Each four times daily. sucralfate (CARAFATE) 1 gram tablet Take 1 tablet by mouth twice daily before meals. Patient takes as needed (Patient not taking: No sig reported) clobetasol (TEMOVATE) 0.05 % ointment Apply to affected area bid x 6 weeks then use weekly for maintenance (Patient not taking: Reported on 03/19/2022) diclofenac sodium (VOLTAREN) 1 % topical gel Apply 4 g to affected area four times daily. flash glucose scanning reader ([employer] HALIMA 10 DAY READER) misc 1 Kit four times daily. COMPOUNDED PRESCRIPTION Zero G boot heel protector docusate sodium (COLACE) 100 mg capsule Take 1 capsule by mouth twice daily. Compression Knee Highs KNEE (more content not included)... [facility] 04-30-2022 History of Presen t illness Narrative 04/30/2022 Patient presents with: Cough SUBJECTIVE: This is a 87 year old, accompanied by caregiver, that is here today for Above Complaints. Continues with cough that she had before [place]. Completed course of antibiotic in March for pneumonia. Overall feels improved. Cough can be productive at times with thick white sputum. Patient reports it can be difficulty to cough it up. Taking OTC robitussin with mild relief. Admits to rhinorrhea. Denies fevers, chills, body aches, headaches, nasal congestion, sore throat, SOB< dyspnea, wheezing, chest pain, palpitations, leg swelling, nausea, vomiting or diarrhea PAST MEDICAL HISTORY Diagnosis Date Anemia Bilateral lower extremity edema CHF (congestive heart failure) ([facility]) [facility]. Chronic diastolic heart failure Chronic lower back pain DIVERTICULOSIS Essential hypertension, benign Gangrene ([facility]) 03/22/2005 Gastric ulcer, unspecified as acute or chronic, without mention of hemorrhage, perforation, or obstruction Gout Hypothyroidism Inflammatory and toxic neuropathy, unspecified Iron deficiency anemia, unspecified Lumbar spinal stenosis Macular degeneration Osteoarthritis Osteoporosis 01/25/2009 BMD 01/16/09, No sig change from baseline. Proliferative diabetic retinopathy, both eyes ([facility]) inactive Renal failure, unspecified Dr. Gandhi Thrombocytopenia, unspecified ([facility]) Type II 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, not stated as uncontrolled(250.60) Ulcer of other part of foot ALLERGIES Ivp Dye [Iodine], Prinzide [Lisinopril-Hydrochlorothiazide] , Faby Inhibitors, and Neomycin MEDICATIONS Current Outpatient Medications Medication Sig insulin aspart U-100 (NOVOLOG FLEXPEN U-100 INSULIN) 100 unit/mL (3 mL) Inject subcutaneously. WITH FIRST BITE OF FOOD, 4 UNITS W/BREAKFAST, 4 UNITS W/LUNCH, 4 UNITS W/DINNER (BOX OF 5 CARTRIDGES) oxyCODONE-acetaminophen (PERCOCET) 10-325 mg tablet Take 1 tablet by mouth every 8 hours as needed for pain for up to 30 days. Insulin Reddick, Disposable, (NOVOFINE 32) 32 gauge x 1/4 Inject 1 Each subcutaneously four times daily. Use one needle with each insulin dose (4 times per day) Dx: 250.00 Insulin: yes flash glucose sensor (FREESTYLE HALIMA 14 DAY SENSOR) kit 1 Each every 2 weeks. furosemide (LASIX) 40 mg tablet Take 1 tablet by mouth once daily. amLODIPine (NORVASC) 10 mg tablet Take 1 tablet by mouth once daily. levothyroxine (SYNTHROID) 100 mcg tablet Take 1 tablet by mouth daily before breakfast. losartan (COZAAR) 25 mg tablet Take 1 tablet by mouth once daily. Per Dr. Gandhi, nephrology azelastine (ASTELIN, ASTEPRO) 0.1% nasal spray Use 2 Sprays in each nostril twice daily. insulin glargine (LANTUS SOLOSTAR U-100 INSULIN) 100 unit/mL (3 mL) Take 4 units daily (box of 5 pens). IFEREX 150 150 mg iron capsule Take 1 capsule by mouth every other day. ondansetron orally disintegrating (ZOFRAN ODT) 4 mg disintegrating tablet Take 1 tablet by mouth every 8 hours As Needed for nausea and vomiting pantoprazole DR (PROTONIX) 40 mg tablet Take by mouth. montelukast (SINGULAIR) 10 mg tablet Take 1 tablet by mouth daily at bedtime. allopurinol (ZYLOPRIM) 100 mg tablet Take 1 tablet by mouth once daily. folic acid 1 mg tablet Take 1 tablet by mouth twice daily. meclizine (ANTIVERT) 12.5 mg tab Take 1 tablet by mouth twice daily as needed (dizziness). ergocalciferol 50,000 unit capsule (VITAMIN D2, DRISDOL) Take 1 capsule by mouth once every month. TAKES ON FIRST DAY OF MONTH albuterol (PROVENTIL) 2.5 mg /3 mL (0.083 %) nebulizer solution Use 3 mL via nebulizer every 4 hours as needed for wheezing/shortness of breath. Use over 5-15minutes. flash glucose scanning reader (FREESTYLE HALIMA 14 DAY READER) Checks blood sugar 4 times daily polyethylene glycol 3350 (MIRALAX, GLYCOLAX) 17 gram packet Take 1 Packet by mouth twice daily as needed (constipation). senna (SENNA) 8.6 mg tab Take 1 tablet by mouth twice daily as needed (constipation). flash glucose sensor (FREESTYLE HALIMA 10 DAY SENSOR) kit 1 Each four times daily. sucralfate (CARAFATE) 1 gram tablet Take 1 tablet by mouth twice daily before meals. Patient takes as needed (Patient not taking: No sig reported) clobetasol (TEMOVATE) 0.05 % ointment Apply to affected area bid x 6 weeks then use weekly for maintenance (Patient not taking: Reported on 03/19/2022) diclofenac sodium (VOLTAREN) 1 % topical gel Apply 4 g to affected area four times daily. flash glucose scanning reader (FREESTYLE HALIMA 10 DAY READER) misc 1 Kit four times daily. COMPOUNDED PRESCRIPTION Zero G boot heel protector docusate sodium (COLACE) 100 mg capsule Take 1 capsule by mouth twice daily. Compression Knee Highs KNEE HIGH COMPRESSION STOCKINGS with zippers 30-40 MM. DX: I83.12 I83.11 I87.303 aspirin, enteric coated (ASPIRIN, ENTERIC COATED) 81 mg EC tablet Take 1 tablet by mouth twice daily. biotin 5 mg caspule Take 1 capsule by mouth once daily. ped multivit #43-iron fumarate (FLINTSTONES COMPLETE, IRON,) 18 mg iron chew Take 1 tablet by mouth once daily. No current facility-administered medications for this visit. Medications and allergies reviewed by this provider. SOCIAL HISTORY Social History Tobacco Use Smoking status: Never Smokeless tobacco: Never Vaping Use Vaping Use: Never used Substance Use Topics Alcohol use: No Drug use: No REVIEW OF SYSTEMS All other reviewed and negative other than HPI. OBJECTIVE: There were no vitals taken for this visit.. Vital signs reviewed by this provider. APPEARANCE Well appearing, alert, in no acute distress, well-hydrated, well nourished. Able to answer all questions appropriately with help from caregiver due to patient is hard of hearing EYES PERRLA, conjunctiva and sclera normal. LUNG Able to speak in full sentences without difficulty. No audile wheezing or coughing COVID-19 VACCINE(1) Never done SHINGRIX VACCINE(2 of 2) due on 12/10/2017 INFLUENZA(1) due on 12/06/2021 DILATED RETINAL EXAM due on 12/22/2021 ADVANCE DIRECTIVE DISCUSSION Never done DEPRESSION ASSESSMENT Never done HBA1C due on 05/12/2022 LDL CHOLESTEROL due on 11/09/2022 URINE ALBUMIN:CREATININE RATIO due on 11/15/2022 DIABETIC FOOT EXAM due on 11/19/2022 DTAP,TDAP,TD(5 - Td or Tdap) due on 03/18/2028 BONE DENSITY Completed PNEUMOCOCCAL: 65+ Completed ASSESSMENT/PLAN: 1. Chronic cough - ICD9: 786.2, ICD10: R05.3 - consider post viral vs pneumonia - no red flag symptoms - red flag symptoms discussed, verbalizes understanding - per patient report she can not take mucinex. Recommend she increase her water intake to help thin the thickness of sputum - XR CHEST 2V FRONTAL/LAT - BENZONATATE 100 MG CAPSULE - follow-up if fails to improve to ER with red flag symptoms Chandrika Almonte APRN.ELECTRONIC REPAIR TROUBLESHOOTER Prescription instructions reviewed with patient as applicable. Patient advised if symptoms do not improve or if symptoms worsen sooner, to contact their primary care physician. Potential red flag symptoms discussed with the patient. Reviewed appropriate action plan to take if red flag symptoms occur. Patient agreeable to treatment plan. I spent a total of 20 minutes on the date of the service which included preparing to see the patient, [id number] patient care, completing clinical documentation, obtaining and/or reviewing separately obtained history, performing a medically appropriate examination, counseling and educating the patient/family/caregiver, and ordering medications, tests, or procedures. documented in this encounter [facility] 04-30-2022 Miscellaneous Notes Spoke to caregiver who set up a VV for today. Will try to get pt's MC ready for visit. Reshma Narayanan LPN Judy higginbotham. Will call and talk with patient and will call the office back regarding possible OV or VV. Candida Card LPN Did they want to schedule an OV or VV? Judy, nurse @ [facility] calling to report patient's caregiver contacted her to say patient developed a cough over the weekend with no fever. Today she has yellowish sputum. She did not report any other symptoms. Stephanie Us RN documented in this encounter [facility] 04-29-2022 Miscellaneous Notes Telephoned back. Message given to aide. Voices understanding. Could hear patient in background. Will give message to patient. Candida Card LPN Majority if BP 's in good range. Call if getting consistent readings of greater than 150/90. Follow-up in May as scheduled. Chandrika Almonte APRN.ELECTRONIC REPAIR TROUBLESHOOTER Pts Patricia Coy called in Pts Bps. AM 04/15 147/70 HR:72 04/16 141/70 HR:74 04/17 103/47 HR:74 04/18 155/72 HR:72 04/19 119/58 HR:74 04/20 122/58 HR:81 04/21 126/65 HR:91 04/22 136/67 HR:75 04/23 133/62 HR:75 04/24 138/60 HR:74 04/25 133/53 HR:75 04/26 122/56 HR:72 04/29 156/66 HR:72 Please call back with any instructions. documented in this encounter [facility] 04-26-2022 Miscellaneous Notes Last office visit: 03/27/22 F/u scheduled: 05/27/22 Paty Jones Ma Patient has been identified by name and date of : Yes Requested Prescriptions Pending Prescriptions Disp Refills insulin aspart U-100 (NOVOLOG FLEXPEN U-100 INSULIN) 100 unit/mL (3 mL) 5 Each 12 Sig: Inject subcutaneously. WITH FIRST BITE OF FOOD, 4 UNITS W/BREAKFAST, 4 UNITS W/LUNCH, 4 UNITS W/DINNER (BOX OF 5 CARTRIDGES) RX INSTRUCTIONS: Patient aware RX will be sent to pharmacy. No need to notify patient. Dinora Jordan Pss documented in this encounter [facility] 04-15-2022 Miscellaneous Notes Spoke with pt and information listed below given. Pt verbalizes understanding. Mayela Jordan LPN VM left for pt to call PCP office for message below. Joan Chand RN 1 high reading on this dosage. Recommend she continue current regimen and update our office in 2 weeks with results. Call sooner with BP >150/90 repeatedly. Patient calling was told to call with blood pressure readings. She was told to cut her Amlodipine to 5 mg daily on Friday. Patient takes blood pressure on right arm. 04/10 648 pm 119/62 pulse 77 04/11 1 pm 143/78 pulse 84 04/12 855 am 136/67 pulse 72 documented in this encounter [facility] 04-04-2022 Miscellaneous Notes Left detailed message on Ribbon line Faxed request for records Julianne Barron Ma That would be fine. Can we get records from Dr. Ferrara's office regarding her recent OV and biopsy results? Edith from [facility] calling asking if PCP is alright with home health getting wound care orders from [facility], Dr Ferrara? Patient had seen Dr Ferrara and had biopsy done of area on right lower back, and current wound orders are not healing this area. Please advise documented in this encounter [facility] 04-03-2022 Miscellaneous Notes PDMP website checked and validated. All prescriptions have been APPROPRIATELY filled. No suspicious activity was identified. 04/03/2022 by Chandrika Almonte APRN.CNP Last Office Visit: 03/27/2022 Future Office Visit: 05/27/2022 Requested Prescriptions Pending Prescriptions Disp Refills oxyCODONE-acetaminophen (PERCOCET) 10-325 mg tablet 90 tablet 0 Sig: Take 1 tablet by mouth every 8 hours as needed for pain for up to 30 days. Date of Last Labs: 03/27/2022 documented in this encounter [facility] 03-29-2022 Miscellaneous Notes Spoke with patient's daughter Julia and gave her the message regarding chest xray results. She will pickle cutter antibiotic tomorrow for her mom to start. Discussed if she has worsening SOB, trouble breathing it chest pain she is to go to ER. Chandrika Almonte APRN.ELECTRONIC REPAIR TROUBLESHOOTER documented in this encounter [facility] 03-29-2022 Miscellaneous Notes TC to patient, message left to call back for update. Candida Card LPN Please let patient know her BNP is elevated could be an exacerbation for CHF. Alkaline phos elevated so will need to recheck this. Hemoglobin down from last check slightly. Has she been taking her iron consistently? Kidney function down some- needs to push fluids and avoid any NSAID products, eat low salt as well. I am still waiting on chest xray. Ask her how her breathing is. Chandrika Almonte APRN.SPIKE documented in this encounter [facility] 03-27-2022 Instructions Chandrika Almonte APRN.SPIKE - 03/27/2022 2:31 PM EST Follow-up pending labs and chest xray documented in this encounter [facility] 03-27-2022 History of Presen t illness Narrative 03/27/2022 Patient presents with: Nausea: X1 week with not feeling well Shortness of Breath: X2 days Left Knee Pain: Wants it looked at due to it buckling while coming in here SUBJECTIVE: This is a 87 year old, accompanied by [id number], that is here today for Above Complaints.. One week ago started with nausea and just not feeling well. Vomited one time last week. Good appetite last week. Today appetite not as good. Reports daughter she lives with had the flu. Daughter- in-law with her today reports the family told her the patient has been short of breath the last couple of days. Patient agrees she has felt a little SOB and has been feeling weaker. Teqodzbo-ky-hjw reports left knee buckled when they were getting her to car and she is having some pain in it. Patient and zhlozegt-up-ufc denies she fell or hit her knee. Patient denies fever, chills, URI symptoms, dyspnea, orthopnea, chest pain, palpitations, leg edema worse from her baseline, abdominal pain, diarrhea, constipation, dysuria, urinary urgency or frequency. Per nskjjgdf-tb-act blood sugar 151 at lunch time today, however patient did not eat lunch. Verified she did not take her mealtime insulin. PAST MEDICAL HISTORY Diagnosis Date Anemia Bilateral lower extremity edema CHF (congestive heart failure) ([facility]) [facility]. Chronic diastolic heart failure Chronic lower back pain DIVERTICULOSIS Essential hypertension, benign Gangrene ([facility]) 03/22/2005 Gastric ulcer, unspecified as acute or chronic, without mention of hemorrhage, perforation, or obstruction Gout Hypothyroidism Inflammatory and toxic neuropathy, unspecified Iron deficiency anemia, unspecified Lumbar spinal stenosis Macular degeneration Osteoarthritis Osteoporosis 01/25/2009 BMD 01/16/09, No sig change from baseline. Proliferative diabetic retinopathy, both eyes ([facility]) inactive Renal failure, unspecified Dr. Gandhi Thrombocytopenia, unspecified ([facility]) Type II 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, not stated as uncontrolled(250.60) Ulcer of other part of foot ALLERGIES Ivp Dye [Iodine], Prinzide [Lisinopril-Hydrochlorothiazide] , Afby Inhibitors, and Neomycin MEDICATIONS Current Outpatient Medications Medication Sig oxyCODONE-acetaminophen (PERCOCET) 10-325 mg tablet Take 1 tablet by mouth every 8 hours as needed for pain for up to 30 days. Insulin Reddick, Disposable, (NOVOFINE 32) 32 gauge x 1/4 Inject 1 Each subcutaneously four times daily. Use one needle with each insulin dose (4 times per day) Dx: 250.00 Insulin: yes flash glucose sensor (FREESTYLE HALIMA 14 DAY SENSOR) kit 1 Each every 2 weeks. furosemide (LASIX) 40 mg tablet Take 1 tablet by mouth once daily. amLODIPine (NORVASC) 10 mg tablet Take 1 tablet by mouth once daily. levothyroxine (SYNTHROID) 100 mcg tablet Take 1 tablet by mouth daily before breakfast. losartan (COZAAR) 25 mg tablet Take 1 tablet by mouth once daily. Per Dr. Gandhi, nephrology azelastine (ASTELIN, ASTEPRO) 0.1% nasal spray Use 2 Sprays in each nostril twice daily. insulin aspart U-100 (NOVOLOG FLEXPEN U-100 INSULIN) 100 unit/mL (3 mL) Inject subcutaneously. WITH FIRST BITE OF FOOD, 4 UNITS W/BREAKFAST, 4 UNITS W/LUNCH, 4 UNITS W/DINNER (BOX OF 5 CARTRIDGES) insulin glargine (LANTUS SOLOSTAR U-100 INSULIN) 100 unit/mL (3 mL) Take 4 units daily (box of 5 pens). IFEREX 150 150 mg iron capsule Take 1 capsule by mouth every other day. ondansetron orally disintegrating (ZOFRAN ODT) 4 mg disintegrating tablet Take 1 tablet by mouth every 8 hours As Needed for nausea and vomiting pantoprazole DR (PROTONIX) 40 mg tablet Take by mouth. montelukast (SINGULAIR) 10 mg tablet Take 1 tablet by mouth daily at bedtime. allopurinol (ZYLOPRIM) 100 mg tablet Take 1 tablet by mouth once daily. folic acid 1 mg tablet Take 1 tablet by mouth twice daily. meclizine (ANTIVERT) 12.5 mg tab Take 1 tablet by mouth twice daily as needed (dizziness). ergocalciferol 50,000 unit capsule (VITAMIN D2, DRISDOL) Take 1 capsule by mouth once every month. TAKES ON FIRST DAY OF MONTH albuterol (PROVENTIL) 2.5 mg /3 mL (0.083 %) nebulizer solution Use 3 mL via nebulizer every 4 hours as needed for wheezing/shortness of breath. Use over 5-15minutes. flash glucose scanning reader (StorSimpleSTYLE HALIMA 14 DAY READER) Checks blood sugar 4 times daily polyethylene glycol 3350 (MIRALAX, GLYCOLAX) 17 gram packet Take 1 Packet by mouth twice daily as needed (constipation). senna (SENNA) 8.6 mg tab Take 1 tablet by mouth twice daily as needed (constipation). flash glucose sensor (FREESTYLE HALIMA 10 DAY SENSOR) kit 1 Each four times daily. sucralfate (CARAFATE) 1 gram tablet Take 1 tablet by mouth twice daily before meals. Patient takes as needed (Patient not taking: No sig reported) clobetasol (TEMOVATE) 0.05 % ointment Apply to affected area bid x 6 weeks then use weekly for maintenance (Patient not taking: Reported on 03/19/2022) diclofenac sodium (VOLTAREN) 1 % topical gel Apply 4 g to affected area four times daily. flash glucose scanning reader ([employer] HALIMA 10 DAY READER) misc 1 Kit four times daily. COMPOUNDED PRESCRIPTION Zero G boot heel protector docusate sodium (COLACE) 100 mg capsule Take 1 capsule by mouth twice daily. Compression Knee Highs KNEE HIGH COMPRESSION STOCKINGS with zippers 30-40 MM. DX: I83.12 I83.11 I87.303 aspirin, enteric coated (ASPIRIN, ENTERIC COATED) 81 mg EC tablet Take 1 tablet by mouth twice daily. biotin 5 mg caspule Take 1 capsule by mouth once daily. ped multivit #43-iron fumarate (FLINTSTONES COMPLETE, IRON,) 18 mg iron chew Take 1 tablet by mouth once daily. No current facility-administered medications for this visit. Medications and allergies reviewed by this provider. SOCIAL HISTORY Social History Tobacco Use Smoking status: Never Smokeless tobacco: Never Vaping Use Vaping Use: Never used Substance Use Topics Alcohol use: No Drug use: No REVIEW OF SYSTEMS All other reviewed and negative other than HPI. OBJECTIVE: BP 106/54 Pulse 83 Temp 37.4 C (99.3 F) Resp 18 SpO2 93% . Vital signs reviewed by this provider. APPEARANCE Well appearing, alert, in no acute distress, well-hydrated, well nourished. EYES PERRLA, conjunctiva and sclera normal. HEART RRR with normal S1 and S2, no murmurs, no gallops, no JVD appreciated LUNG clear to auscultation. No wheezes, rhonchi or rales. Patient able to speak in full sentences without difficulty EXTREMITIES Bilateral knee high compression stockings intact. BLE do not appear edematous LEFT KNEE: No obvious deformity, erythema, excessive warmth or swelling. Mild TTP to patella. Right medial knee with some resolving ecchymosis. Exam limits due to patient unable to get out of wheelchair without walker which she does not have in the room with her COVID-19 VACCINE(1) Never done SHINGRIX VACCINE(2 of 2) due on 12/10/2017 ADVANCE DIRECTIVE DISCUSSION Never done DEPRESSION ASSESSMENT Never done INFLUENZA(1) due on 12/06/2021 DILATED RETINAL EXAM due on 12/22/2021 HBA1C due on 05/12/2022 LDL CHOLESTEROL due on 11/09/2022 URINE ALBUMIN:CREATININE RATIO due on 11/15/2022 DIABETIC FOOT EXAM due on 11/19/2022 DTAP,TDAP,TD(5 - Td or Tdap) due on 03/18/2028 BONE DENSITY Completed PNEUMOCOCCAL: 65+ Completed ASSESSMENT/PLAN: 1. SOB (shortness of breath) - ICD9: 786.05, ICD10: R06.02 (primary diagnosis) - consider post viral vs pneumonia vs exacerbation of CHF vs deconditioning - no red flag symptoms or exam findings - red flag symptoms discussed, verbalizes understanding - XR CHEST 2V FRONTAL/LAT - CBC - NT PRO BNP - COMP METABOLIC PANEL - COVID WITH FLUA+B, ROUTINE - 2019 CORONAVIRUS - follow-up pending blood work and xray to ER with red flag symptoms 2. Nausea - ICD9: 787.02, ICD10: R11.0 - bland diet and stay well hydrated - COVID WITH FLUA+B, ROUTINE - 2019 CORONAVIRUS - follow-up if symptoms persist 3. Generalized weakness - ICD9: 780.79, ICD10: R53.1 - possible related to general physical decline vs post viral - no red flag symptoms or exam findings - red flag symptoms discussed, verbalizes understanding - CBC - NT PRO BNP - COMP METABOLIC PANEL - CBC + DIFF - COVID WITH FLUA+B, ROUTINE - 2019 CORONAVIRUS - follow-up if symptoms fail to improve. Would recommend PT if not improving, to ER with red flag symptoms 4. Acute pain of left knee - ICD9: 719.46, ICD10: M25.562 - no red flag symptoms or exam findings - red flag symptoms discussed, verbalizes understanding - recommend ice or heat and OTC pain relievers as directed on packaging - follow-up if symptoms fail to improve, to ER with red flag symptoms Chandrika Podlogar, GUIDANCE AND CONTROL SYSTEM ENGINEER.ELECTRONIC REPAIR TROUBLESHOOTER Prescription instructions reviewed with patient as applicable. Patient advised if symptoms do not improve or if symptoms worsen sooner, to contact their primary care physician. Potential red flag symptoms discussed with the patient. Reviewed appropriate action plan to take if red flag symptoms occur. Patient agreeable to treatment plan. I spent a total of 30 minutes on the date of the service which included preparing to see the patient, [id number] patient care, completing clinical documentation, obtaining and/or reviewing separately obtained history, performing a medically appropriate examination, counseling and educating the patient/family/caregiver, and ordering medications, tests, or procedures. documented in this encounter [facility] 03-26-2022 Miscellaneous Notes Shanice returned calling she is doing much better, s/s productive cough, congestion, denies fever. Given below recommendation below, verbalized understanding. Suze Uribe LPN House phone telephoned, message left for patient and daughters to call office back. Candida Card LPN If patient becoming more short of breath, having difficulty breathing or chest pain needs to go to ER. Depending on what day her symptoms started and she has a positive COVID-19 test she would qualify for antiviral treatment if that is something she would like to discuss recommend virtual or telephone visit. Chandrika Almonte APRN.PSIKE Jasmin- [facility]- reports patient has new onset cold/flu symptoms. Patient was exposed to daughter in home, who tested positive for flu last week. Patient symptoms are productive clear cough, faint crackles in right lower lung, a little SOB, poor appetite, no fever today- but did have a fever last Fri. POX is running 90-92, on room air, but has gone down to 89 %. Reports patient / family does not feel patient needs a doctor appt at this time. Jasmin educated patient / family on what to look for that would require a doctor visit or ER visit. documented in this encounter [facility] 03-20-2022 History of Presen t illness Narrative Last saw Chandrika Almonte: 02/05/22 Subjective: Patient presents to clinic c/o painful toenails. They state that the nails are especially painful with shoe gear and pressure. Patient states that nails 1-5 b/l are painful. Patient admits to being diabetic. No other pedal complaints at this time. Patient states no change in medications or medical history since last visit. Objective: Patient presents to clinic ambulating in diabetic shoe Vasc: DP and PT pulses are faintly palpable bilateral. CFT is less than 5 seconds bilateral. Skin temperature is warm to cool proximal to distal bilateral. There is moderate edema or varicosities noted. Neuro: Protective sensation is absent to the foot and toes when tested with the 5.07 SWM bilateral. Vibratory sensation is absent at the hallux IPJ bilateral. The hallux is downgoing bilateral. Derm: Nails 1-5 b/l are painful, discolored-yellow, thick, crumbly, dystrophic and with subungal debris. Skin is of normal turgor, texture and hair growth is absent bilateral. There are callus to left heel and right hallux. no ulcerations, scars, verruca or other lesions noted. Ortho: Muscle strength is 5/5 for all pedal groups tested. Ankle joint DF is decreased with the knee extended with no pain or crepitus noted. 1st MPJ ROM is decreased bilateral. Assessment: (B35.1) Onychomycosis (primary encounter diagnosis) (M79.675) Pain in toe of left foot (M79.674) Pain in toe of right foot (B35.1) Onychomycosis (primary encounter diagnosis (E11.49) Other diabetic neurological complication associated with type 2 diabetes mellitus (HCC) Plan: Patient was seen and evaluated. Nails 1-5 bilateral were debrided in length and thickness. Callus reduced to left heel and right hallus with dremmel. Discussed past concenr for charcot. Xrays were ordered in 2020 and show no acute pathology. Discussed getting repeat xrays. She declined. Patient was instructed on the continued importance of diabetic foot care along with proper diet and keeping their blood sugar under control to prevent complications. Patient is to RTC in 3-4 months. Zak Lorenzo DPM AMB ROOMING INTAKE FLOWSHEET DATA Risk Screening Do you have concerns about personal safety or safety in the home?: No Pain Pain Level: 2 Pain Location: Toe Duration Units: Weeks Frequency: Intermittent Intervention/Comfort measure: Reposition, Relaxation, Distractions Patient presents with: Left Foot - Established Patient, Follow Up, nail care Right Foot - Established Patient, Follow Up, nail care documented in this encounter [facility] 03-13-2022 Miscellaneous Notes Order signed and returned [email or web address]. Grace telephoned. To resend what needs to be signed. Candida Card LPN Grace with [employer] is calling in regards to rx forms faxed to office for diabetic shoes and inserts. Grace reports she received forms but are incomplete. Grace reports dr needs to sign front and back of form and that there are two columns dr needs to sign the right and left side. Please sign and fax back. Reshma Narayanan LPN documented in this encounter [facility] 03-08-2022 Miscellaneous Notes Detailed VM left on Judy's (at [facility]) confidential and secure line. Joan Chand RN Reviewed and agree. Judy nurse with [facility] calling, they received feed back from patients insurance on what they would like them to use for her wounds. The wound on the buttocks they would like a triad paste to be used, no dressing needed. For the wound that is on the mid back they would like collagen with silver used and a foam dressing to cover, they would like that dressing to be changed twice a week. Judy asking if PCP is ok with these orders. Please advise. documented in this encounter [facility] 03-02-2022 Miscellaneous Notes PDMP website checked and validated. All prescriptions have been APPROPRIATELY filled. No suspicious activity was identified. 03/02/2022 by Rylee Henson MD Patient has been identified by name and date of : Yes Patient phones for refill(s): Requested Prescriptions Pending Prescriptions Disp Refills oxyCODONE-acetaminophen (PERCOCET) 10-325 mg tablet 90 tablet 0 Sig: Take 1 tablet by mouth every 8 hours as needed for pain for up to 30 days. Insulin Reddick, Disposable, (NOVOFINE 32) 32 gauge x 1/4 [id number] Each 0 Sig: Inject 200 Each subcutaneously four times daily. Use one needle with each insulin dose (4 times per day) Dx: 250.00 Insulin: yes Date of last office visit in primary care: 02/05/22 Last 2 Encounter Wt Readings: Date: Wt: 01/30/2022 0 kg () 07/25/2021 0 kg () Previous labs/tests for medication: Not applicable Please adjust Pen Needle Prescription as daughter wants more than 1 box/refill. Thank you. Please advise. Thank you. Deisy Keller documented in this encounter [facility] 02-18-2022 Miscellaneous Notes Phoned [facility] PT and advised Fiona of provider's message. She voiced understanding. Reviewed and agree. Fiona PT with [facility] called in POC. She states the daughter wanted them to wait until today to evaluate the patient, so they are going to need a delay of care. She reports they are going to see the patient twice a week for three weeks. The will be working on lower extremity strength, gait training, and balance. Her phone line is confidential so a message can be left. documented in this encounter [facility] 02-18-2022 Miscellaneous Notes Reviewed. Stacie OT [facility] called and reports they had a delay of care per patient and are seeing her once only. Patient denies any concerns or needs. She has a lot of assistance she has a private aid Friday-Friday and lives with her family. If providers agrees with POC do not need to call, but phone line is confidential. documented in this encounter [facility] 02-15-2022 Miscellaneous Notes Sarah with [facility] called and is notified of providers results and instructions. She voices understanding. Deysi Borrego RN Rx sent for Bactroban ointment to be applied BID. If itching, may use hydrocortisone cream BID OTC. Sarah with [facility] calls to ask if provider wants to order something else for the treatment to right mid back d/t neomycin allergy. Current order is triple antibiotic ointment or neosporin. Reaction listed is rash. Family hasn't been using either neosporin or NANCY. Soheila Beard, RN documented in this encounter [facility] 02-13-2022 Miscellaneous Notes Addended by: CHANDRIKA ALMONTE on: 02/13/2022 09:33 AM Modules accepted: Orders I have place order for general surgery consult. Please assist in scheduling. Chandrika Almonte APRN.CNP PATIENT NOTIFIED OF SAME. Would like a referral to general surgery to have area evaluated. Patient telephoned and message left to call back for update. Candida Card LPN We did an US which is consistent with a lipoma so there is no other further testing indicated. I am happy to place an order for them to see general surgery for this and they can discuss options. Chandrika Almonte APRN.CNP Patient calls and states that she had a couple nurse practitioner friends look at area and told her that they don't think it is lipoma. Tried to explain to patient that is what ultrasound showed. Patient states that are is very painful and it is hard. Explained to patient that provider can do a general surgery consult so it could possibly be removed. Patient states that she is not sure that she wants to do that. Patient states that she wants to talk to Chandrika in regards to this. Please review and advise, Deisy Will RN documented in this encounter [facility] 02-08-2022 Miscellaneous Notes Pt called and is notified of providers results and instructions. Pt voices understanding. Deysi Borrego RN Left message for patient to return call for an update on US results. Ultrasound is consistent with lipoma as I suspected and discussed with patient/caregiver in the office. Would continue treatment as previously discussed by covering with gauze pad to prevent rubbing, shifting position regularly, and treating red spot with triple abx ointment BID. [facility] order for wound care placed in office yesterday. Please let us know if they are having hard time getting them to come out to home for evaluation and treatment. Patient calling asking for the ultrasound results of her back. Chandrika Podlogdarrell FAILURE ANALYSIS ENGINEER is out today. Please advise 02/07/2022 7:55 AM - Radiology, Oru In Results-Findings * * *Final Report* * * DATE OF EXAM: Feb 05 2022 1:15PM LDU 1047 - US CHEST WALL/SOFT TISSUE / PROCEDURE REASON: Subcutaneous nodule * * * * Physician Interpretation * * * * Ultrasound right side mid back HISTORY: Right-sided mid back palpable abnormality TECHNIQUE: Limited ultrasound attention to the region of the elbow abnormality right-sided mid back Views obtained: Multiple sagittal and axial images.Images stored and permanent archive. Comparison: None RESULT/ impression: At the level of scanning, 5.3 x 3.0 x 0.7 cm isoechoic lesion. Leading diagnostic consideration is a lipoma. Correlation with physical exam and history Electrical Prospecting Supervisor: JOHANN Transcribe Date/Time: Feb 07 2022 7:52A Dictated by : ALEX CARROLL MD This examination was interpreted and the report reviewed and electronically signed by: ALEX CARROLL MD on Feb 07 2022 7:53AM EST documented in this encounter [facility] 02-05-2022 Miscellaneous Notes Phoned Julia and updated her order and OV notes forwarded to [facility] as requested. She voiced understanding. Rx printed. Please fax. Daughter is calling about the message below stating [facility] still does not have the order and the OV notes for [employer]. Daughter reports pt is out and this needs to be done richard. Reshma Narayanan LPN TE from02/01/22 Daughter calling for pt and states she needs a new rx for pt's [employer]ensors to be faxed to [facility]. They also need office notes. (they need rx and office notes every 6 months for insurance purposes) FAX: [phone]. Pt using her last sensor now. Please send richard. Mayela Jordan LPN documented in this encounter [facility] 02-05-2022 Note HNO ID: [id number] Author: RT Sloan(R) Service: ? Author Type: Technologist Type: Progress Notes Filed: 02/05/2022 1:17 PM Note Text: Radiology Service Progress Note PATIENT NAME: Shanice Patel DATE OF SERVICE: February 05, 2022 TIME: 1:17 PM PATIENT IDENTITY VERIFICATION COMPLETED USING TWO (2) IDENTIFIERS: Name and Date of confirmed by patient verbally. FALL SCREENING: Has the patient had 2 falls in the last year or 1 fall with injury or currently using an Ambulatory Assistive Device (Walker, Cane, Wheelchair, Crutches, etc.)? No PATIENT GENDER DATA: Female. status: : No status: NO. PATIENT RELEVANT IMPLANT DATA REVIEWED: Not Applicable RADIOLOGY DEPARTMENT: Ultrasound PERIPHERAL IV DATA: Not applicable SIGNED BY: Fiona De Oliveira RDMS, RVT February 05, 2022 1:17 PM [facility] 02-05-2022 History of Presen t illness Narrative Radiology Service Progress Note PATIENT NAME: Shanice Patel DATE OF SERVICE: February 05, 2022 TIME: 1:17 PM PATIENT IDENTITY VERIFICATION COMPLETED USING TWO (2) IDENTIFIERS: Name and Date of confirmed by patient verbally. FALL SCREENING: Has the patient had 2 falls in the last year or 1 fall with injury or currently using an Ambulatory Assistive Device (Walker, Cane, Wheelchair, Crutches, etc.)? No PATIENT GENDER DATA: Female. status: : No status: NO. PATIENT RELEVANT IMPLANT DATA REVIEWED: Not Applicable RADIOLOGY DEPARTMENT: Ultrasound PERIPHERAL IV DATA: Not applicable SIGNED BY: Fiona De Oliveira RDMS, RVT February 05, 2022 1:17 PM documented in this encounter [facility] 02-05-2022 History of Presen t illness Narrative 02/05/2022 Patient presents with: Derm Problem: Raw area on right lower back SUBJECTIVE: This is a 86 year old, accompanied by caregiver, that is here today for Above Complaints. Caregiver concerned patient has a broken rib poking from the inside creating a sore and pain to to right lower back. Covering area with DuoDerm patch. Area was first noted three weeks ago by caregiver. Patient uncertain if this happened after a fall in November. Patient reports it is painful after laying on area for extended amount of time. Pain is sharp and stabbing and rated 7/10. Patient takes percocet 10/325 for her chronic arthritis. PAST MEDICAL HISTORY Diagnosis Date Anemia Bilateral lower extremity edema CHF (congestive heart failure) ([facility]) [facility]. Chronic diastolic heart failure Chronic lower back pain DIVERTICULOSIS Essential hypertension, benign Gangrene ([facility]) 03/22/2005 Gastric ulcer, unspecified as acute or chronic, without mention of hemorrhage, perforation, or obstruction Gout Hypothyroidism Inflammatory and toxic neuropathy, unspecified Iron deficiency anemia, unspecified Lumbar spinal stenosis Macular degeneration Osteoarthritis Osteoporosis 01/25/2009 BMD 01/16/09, No sig change from baseline. Proliferative diabetic retinopathy, both eyes ([facility]) inactive Renal failure, unspecified Dr. Gandhi Thrombocytopenia, unspecified ([facility]) Type II 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, not stated as uncontrolled(250.60) Ulcer of other part of foot ALLERGIES Ivp Dye [Iodine], Prinzide [Lisinopril-Hydrochlorothiazide] , Faby Inhibitors, and Neomycin MEDICATIONS Current Outpatient Medications Medication Sig flash glucose sensor (FREESTYLE HALIMA 14 DAY SENSOR) kit 1 Each four times daily. Hydrocolloid Dressing (DUODERM CGF EXTRA THIN) 2 X 4 bndg Apply 1 Patch to affected area once daily. Change daily as needed. oxyCODONE-acetaminophen (PERCOCET) 10-325 mg tablet Take 1 tablet by mouth every 8 hours as needed for pain for up to 30 days. furosemide (LASIX) 40 mg tablet Take 1 tablet by mouth once daily. amLODIPine (NORVASC) 10 mg tablet Take 1 tablet by mouth once daily. Insulin Reddick, Disposable, (BD ULTRA-FINE ROEL PEN NEEDLE) 32 gauge x 5/32 Inject 1 Each subcutaneously four times daily. Use one needle with each insulin dose (4 times per day) Dx: 250.00 Insulin: yes levothyroxine (SYNTHROID) 100 mcg tablet Take 1 tablet by mouth daily before breakfast. losartan (COZAAR) 25 mg tablet Take 1 tablet by mouth once daily. Per Dr. Gandhi, nephrology azelastine (ASTELIN, ASTEPRO) 0.1% nasal spray Use 2 Sprays in each nostril twice daily. insulin aspart U-100 (NOVOLOG FLEXPEN U-100 INSULIN) 100 unit/mL (3 mL) Inject subcutaneously. WITH FIRST BITE OF FOOD, 4 UNITS W/BREAKFAST, 4 UNITS W/LUNCH, 4 UNITS W/DINNER (BOX OF 5 CARTRIDGES) insulin glargine (LANTUS SOLOSTAR U-100 INSULIN) 100 unit/mL (3 mL) Take 4 units daily (box of 5 pens). IFEREX 150 150 mg iron capsule Take 1 capsule by mouth every other day. ondansetron orally disintegrating (ZOFRAN ODT) 4 mg disintegrating tablet Take 1 tablet by mouth every 8 hours As Needed for nausea and vomiting pantoprazole DR (PROTONIX) 40 mg tablet Take by mouth. montelukast (SINGULAIR) 10 mg tablet Take 1 tablet by mouth daily at bedtime. allopurinol (ZYLOPRIM) 100 mg tablet Take 1 tablet by mouth once daily. folic acid 1 mg tablet Take 1 tablet by mouth twice daily. meclizine (ANTIVERT) 12.5 mg tab Take 1 tablet by mouth twice daily as needed (dizziness). ergocalciferol 50,000 unit capsule (VITAMIN D2, DRISDOL) Take 1 capsule by mouth once every month. TAKES ON FIRST DAY OF MONTH albuterol (PROVENTIL) 2.5 mg /3 mL (0.083 %) nebulizer solution Use 3 mL via nebulizer every 4 hours as needed for wheezing/shortness of breath. Use over 5-15minutes. flash glucose scanning reader (StorSimpleSTYLE HALIMA 14 DAY READER) Checks blood sugar 4 times daily polyethylene glycol 3350 (MIRALAX, GLYCOLAX) 17 gram packet Take 1 Packet by mouth twice daily as needed (constipation). senna (SENNA) 8.6 mg tab Take 1 tablet by mouth twice daily as needed (constipation). flash glucose sensor (StorSimpleSTYLE HALIMA 10 DAY SENSOR) kit 1 Each four times daily. sucralfate (CARAFATE) 1 gram tablet Take 1 tablet by mouth twice daily before meals. Patient takes as needed clobetasol (TEMOVATE) 0.05 % ointment Apply to affected area bid x 6 weeks then use weekly for maintenance diclofenac sodium (VOLTAREN) 1 % topical gel Apply 4 g to affected area four times daily. flash glucose scanning reader (FREESTYLE HALIMA 10 DAY READER) misc 1 Kit four times daily. COMPOUNDED PRESCRIPTION Zero G boot heel protector docusate sodium (COLACE) 100 mg capsule Take 1 capsule by mouth twice daily. Compression Knee Highs KNEE HIGH COMPRESSION STOCKINGS with zippers 30-40 MM. DX: I83.12 I83.11 I87.303 aspirin, enteric coated (ASPIRIN, ENTERIC COATED) 81 mg EC tablet Take 1 tablet by mouth twice daily. biotin 5 mg caspule Take 1 capsule by mouth once daily. ped multivit #43-iron fumarate (FLINTSTONES COMPLETE, IRON,) 18 mg iron chew Take 1 tablet by mouth once daily. No current facility-administered medications for this visit. Medications and allergies reviewed by this provider. SOCIAL HISTORY Social History Tobacco Use Smoking status: Never Smokeless tobacco: Never Substance Use Topics Alcohol use: No Drug use: No REVIEW OF SYSTEMS All other reviewed and negative other than HPI. OBJECTIVE: BP 116/66 Pulse 74 Resp 16 SpO2 97% . Vital signs reviewed by this provider. APPEARANCE Well appearing, alert, in no acute distress, well-hydrated, well nourished. BACK: approximately 4 cm x 4 cm semi-soft lump to right mid back which is more prominent when patient is sitting. Area becomes more flattened and feels harder when she stands Stage 1 pressure ulcer inferior to lump. Mild TTP COVID-19 VACCINE(1) Never done SHINGRIX VACCINE(2 of 2) due on 12/10/2017 ADVANCE DIRECTIVE DISCUSSION Never done DEPRESSION ASSESSMENT Never done INFLUENZA(1) due on 12/06/2021 DILATED RETINAL EXAM due on 12/22/2021 HBA1C due on 05/12/2022 LDL CHOLESTEROL due on 11/09/2022 URINE ALBUMIN:CREATININE RATIO due on 11/15/2022 DIABETIC FOOT EXAM due on 11/19/2022 DTAP,TDAP,TD(5 - Td or Tdap) due on 03/18/2028 BONE DENSITY Completed PNEUMOCOCCAL: 65+ Completed ASSESSMENT/PLAN: 1. Subcutaneous mass of back - ICD9: 782.2, ICD10: R22.2 (primary diagnosis) - unknown etiology - possible lipoma - no red flag symptoms or exam findings - red flag symptoms discussed, verbalizes understanding - US CHEST WALL/SOFT TISSUE - follow-up pending ultrasound, to ER with red flag symptoms 2. Pressure injury of sacral region, stage 2 (HCC) - ICD9: 707.03, 707.22, ICD10: L89.152 - NON-[facility] 3. Pressure injury of back, stage 1 - ICD9: 707.09, 707.21, ICD10: L89.101 - NON-[facility] Chandrika Podjeffry, KORTNEY.ELECTRONIC REPAIR TROUBLESHOOTER Prescription instructions reviewed with patient as applicable. Patient advised if symptoms do not improve or if symptoms worsen sooner, to contact their primary care physician. Potential red flag symptoms discussed with the patient. Reviewed appropriate action plan to take if red flag symptoms occur. Patient agreeable to treatment plan. I spent a total of 25 minutes on the date of the service which included preparing to see the patient, [id number] patient care, completing clinical documentation, obtaining and/or reviewing separately obtained history, performing a medically appropriate examination, counseling and educating the patient/family/caregiver, ordering medications, tests, or procedures, and communicating with other HCPs (not separately reported). documented in this encounter [facility] 02-04-2022 Miscellaneous Notes Patient calls in and discussed patches, x-ray results, and lipoma. Patient would like to keep appointment tomorrow with Chandrika. Soheila Beard RN Left message for patient/daughter to return call to receive message. Also please update with message regarding patch in separate telephone encounter. She does not have a broken rib in this area. Please see rib xray results. I suspect this may be lipoma. I discussed treatment of this with them in the office. I would have them apply triple abx ointment BID to the area of redness and keep covered with gauze pad to prevent rubbing and have her change positions. Please cancel her appointment with Chandrika tomorrow and needs to follow up with wound care as discussed. Phoned patient and was on line with both patient and her daughter. They report that they believe it is a broken rib pushing against patient's skin. The skin is not broken but is irritated by clothing rubbing across the area. They stated they can not make an in office visit or urgent care visit today but will keep the appointment with Chandrika tomorrow. Informen them I would update PCP with this information. If this lump has changed I would recommend seeing her today. I have openings this afternoon. Please see if they can bring her in today. Pt called and is notified of providers results and instructions. Pt voices understanding. Pts sales representative girls' apparel reports lump on back has something sticking out of it and jabs the Pt from the inside out. She reports this started when she fell in November and hit her back on the bed side commode. She states it rubs a raw spot on the Pt when he clothes touch her skin or she sits in the recliner. Pt has an appointment tomorrow with Chandrika Hudson FAILURE ANALYSIS ENGINEER per care takers request. Deysi Borrego RN Noted. Will call patient once PCP reviews and routes to his pool. Pt calling for xray results from yesterday, per chart xray is still in process. Please call pt when results are in, pt states she has trouble getting into her MyChart & it is difficult for her to read it. Michelle Duran LPN documented in this encounter [facility] 02-04-2022 Miscellaneous Notes Patient phones in and provider message reviewed. Patient voices understanding. No appointment with wound care scheduled as of yet. Patient reports they will discuss at appointment tomorrow with Chandrika. Soheila Berad RN Phoned patient to update on message from provider VM left for them to return call. Please also update on second TE message regrding area to patient's back and treatment. The duoderm we called in is the smallest patch. They may be able to cut it to make it into strips. She needs to follow up with wound care regardless of duoderm rx. If she doesn't, her wounds will only worsen and she may end up in the hospital with sepsis or need wound vac or debridement. Pt called and is notified of providers results and instructions. Pt voices understanding. Pt passed the phone to her neonatal intensive care nurse and she reports the Rx for the wrong DuoDerm was sent in. She states it was a large plastic patch to go over her butt. She wanted thin medicated strips, that are foamy DuoDerm. Let her know that he put in for a consult to skin care team. She said she won't go to that unless they are going to give her the medicated DuoDerm strips. Deysi Borrego RN Phoned both patient and her daughter Julia to advise of provider's message. Spoke with patient and she voiced understanding. VM left for daughter. Rx sent as requested. F/u with skin care team. Xray is still in process from 01/30. Patient calls to request an order be sent to [facility] for DuoDerm. Daughter is requesting 1 1/2 in by 4 in extra thin. Consult to skin care visit not yet scheduled. Pended per request. Soheila Beard RN documented in this encounter [facility] 02-04-2022 Miscellaneous Notes Patient calls in and reviewed message as well. Patient reports she would like to keep appointment with Chandrika for tomorrow. Soheila Beard RN Reviewed. Phoned patient and spoke with her daughter Julia Rodriguez and went over results with her. Daughter asking if ribs were broke? Advised her PCP stated they had been broke at one time most likely during a prior fall but the areas are not were the lump is. Advised her PCP feels like lump is a lipoma and would likely require surgery to remove and patient is not a good candidate for surgery. Daughter stated she would see if patient wants to follow up with wound care as ordered and if she still wants to see Chandrika Podlogar tomorrow since she is now aware its not a rib that may be popping through the lump on her back.Thanked PCP for clarifying everything. ----- Message from Rylee Henson MD sent at 02/04/2022 9:04 AM EDT ----- Chest xray shows right sided 2nd and 3rd rib deformities vs fracture which are age indeterminate. Suspect this is old injury and related to her previous fall and is not near the site of her lump. No abnormalities noted over the right mid/lower back. Continue treatment as discussed in office. documented in this encounter [facility] 02-01-2022 Miscellaneous Notes Daughter calling for pt and states she needs a new rx for pt's Hal[employer] Sensors to be faxed to [facility]. They also need office notes. (they need rx and office notes every 6 months for insurance purposes) FAX: [phone]. Pt using her last sensor now. Please send richard. Mayela Jordan LPN documented in this encounter [facility] 01-31-2022 Miscellaneous Notes Please see refill request from 01/31. This staff placed to call to [facility] to verify scripts and needles. TC was made back to patient with no answer, VM left informing that medications and needles were ready for pickle cutter at pharmacy. Second attempt at TC with no answer. MING Geller Pt and daughter (Julia) called regarding the needles. She indicated the needles were called pen tips by Kiet Gamez, 12mm and said that [facility] did not indicate have anything for the needles. Daughter would like to be called back. documented in this encounter [facility] 01-31-2022 Miscellaneous Notes TC to patient who verbalized understanding. Pt gave phone to daughter who expressed frustration that prescriptions filled 2 days ago (insulin needles and amlodipine) [facility] were [facility] to go [facility] and were instead to go to [facility] [place]. Please see refill request 01/29 where these prescriptions were called in to [facility] for patient. TC to [facility] to verify that they have script for amlodipine. Insulin needles given verbally. TC back to patient with no answer. Left message that medications were ready for pickle cutter. MING Geller PDMP website checked and validated. All prescriptions have been APPROPRIATELY filled. No suspicious activity was identified. 01/31/2022 by Rylee Henson MD Patient phones requesting refills as follows: Requested Prescriptions Pending Prescriptions Disp Refills oxyCODONE-acetaminophen (PERCOCET) 10-325 mg tablet 90 tablet 0 Sig: Take 1 tablet by mouth every 8 hours as needed for pain for up to 30 days. Please review and advise. Michelle Donis LPN Last ordered/filled 12/07/21 for 90 tabs by Lakhwinder Almonte Patient has been identified by name and date of : Yes Last office visit in this department: 01/30/2022 RX INSTRUCTIONS: Patient aware RX will be sent to pharmacy. No need to notify patient. Patient requesting percocet. Patient phones requesting refills as follows: Requested Prescriptions No prescriptions requested or ordered in this encounter Please review and advise. Felicia Madison Pss documented in this encounter [facility] 01-30-2022 Instructions Rylee Henson MD - 01/30/2022 11:00 AM EDT Shanice needs to shift her weight in her chair from side to side at least every 2 hours to prevent sores on her back and buttocks. documented in this encounter [facility] 01-30-2022 History of Presen t illness Narrative Chief Complaint Patient presents with: Pain, Back HPI Shanice Patel is a 86 year old female who presents here today for pain. Pt here today with Caregiver, Fatoumata. Patient in a wheelchair. Has difficulty ambulating. Pt here today with c/o of spot on her mid upper back that's painful after a fall that occurred in late November. Pt's Nurse felt this could be a rib. Pt reports that she fell backward onto her potty chair and hit her upper back against the sink or the arm to her potty chair. Pt denies any immediate pain to the area, but states about mid December while sleeping she was having pain. Thought this was something related to her chair or the spot getting hot. This would only bother her at night and only after laying for a while in her lift chair. Sitting most of the day in the lift chair with eggshell cushion. Starting the last week of December the pain became constant day and night. Pain a 10/14 described as sharp/stabbing. Pt states that she takes Percocet 10-325 mg due to her chronic arthritis issues. Helping with chronic pain and ADLs. Patient ambulating with use of walker at home. Past medical history, appointments, medications, allergies reviewed. Previous Medical History PAST MEDICAL HISTORY Diagnosis Date Anemia Bilateral lower extremity edema CHF (congestive heart failure) ([facility]) [facility]. Chronic diastolic heart failure Chronic lower back pain DIVERTICULOSIS Essential hypertension, benign Gangrene ([facility]) 03/22/2005 Gastric ulcer, unspecified as acute or chronic, without mention of hemorrhage, perforation, or obstruction Gout Hypothyroidism Inflammatory and toxic neuropathy, unspecified Iron deficiency anemia, unspecified Lumbar spinal stenosis Macular degeneration Osteoarthritis Osteoporosis 01/25/2009 BMD 01/16/09, No sig change from baseline. Proliferative diabetic retinopathy, both eyes ([facility]) inactive Renal failure, unspecified Dr. Gandhi Thrombocytopenia, unspecified ([facility]) Type II 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, not stated as uncontrolled(250.60) Ulcer of other part of foot Previous Surgical History PAST SURGICAL HISTORY Procedure Laterality Date APPENDECTOMY CHOLECYSTECTOMY Cholecystectomy COLONOSCOPY FLX DX W/COLLJ SPEC WHEN PFRMD 06/25/2001 Colonoscopy COLONOSCOPY FLX DX W/COLLJ SPEC WHEN PFRMD 05/16/2016 Colonoscopy DILATION & CURETTAGE DX&/THER NONOBSTETRIC Dilation & curettage ENDOMETRIAL BX W/WO ENDOCERVIX BX W/O DILAT SPX 2016 x2. benign and then repeat was poor specimen. ESOPHAGOGASTRODUODENOSCOPY TRANSORAL DIAGNOSTIC 06/25/2001 EGD PAST SURGICAL HISTORY OF LUMBAR LAMINECTOMY-L3,L4,L5 PAST SURGICAL HISTORY OF ECHOCARDIOGRAM TONSILLECTOMY PRIMARY/SECONDARY <AGE 12 Tonsillectomy Family History FAMILY HISTORY Problem Relation Age of Onset Cancer Mother Heart Father Hypertension Father Stroke Father Breast Cancer Maternal Aunt Cancer Maternal Uncle LUNG CANCER X 2 Stroke Sister Patient Allergies ALLERGIES Allergen Reactions Ivp Dye [Iodine] Anaphylaxis Prinzide [Lisinopri* Cough Faby Inhibitors Cough cough Neomycin Rash Current Medications Current Outpatient Medications on File Prior to Visit Medication Sig furosemide (LASIX) 40 mg tablet Take 1 tablet by mouth once daily. amLODIPine (NORVASC) 10 mg tablet Take 1 tablet by mouth once daily. Insulin Reddick, Disposable, (BD ULTRA-FINE ROEL PEN NEEDLE) 32 gauge x 5/32 Inject 1 Each subcutaneously four times daily. Use one needle with each insulin dose (4 times per day) Dx: 250.00 Insulin: yes levothyroxine (SYNTHROID) 100 mcg tablet Take 1 tablet by mouth daily before breakfast. losartan (COZAAR) 25 mg tablet Take 1 tablet by mouth once daily. Per Dr. Gandhi, nephrology azelastine (ASTELIN, ASTEPRO) 0.1% nasal spray Use 2 Sprays in each nostril twice daily. insulin aspart U-100 (NOVOLOG FLEXPEN U-100 INSULIN) 100 unit/mL (3 mL) Inject subcutaneously. WITH FIRST BITE OF FOOD, 4 UNITS W/BREAKFAST, 4 UNITS W/LUNCH, 4 UNITS W/DINNER (BOX OF 5 CARTRIDGES) insulin glargine (LANTUS SOLOSTAR U-100 INSULIN) 100 unit/mL (3 mL) Take 4 units daily (box of 5 pens). IFEREX 150 150 mg iron capsule Take 1 capsule by mouth every other day. ondansetron orally disintegrating (ZOFRAN ODT) 4 mg disintegrating tablet Take 1 tablet by mouth every 8 hours As Needed for nausea and vomiting pantoprazole DR (PROTONIX) 40 mg tablet Take by mouth. montelukast (SINGULAIR) 10 mg tablet Take 1 tablet by mouth daily at bedtime. allopurinol (ZYLOPRIM) 100 mg tablet Take 1 tablet by mouth once daily. folic acid 1 mg tablet Take 1 tablet by mouth twice daily. meclizine (ANTIVERT) 12.5 mg tab Take 1 tablet by mouth twice daily as needed (dizziness). flash glucose sensor (FREESTYLE HALIMA 14 DAY SENSOR) kit 1 Each four times daily. ergocalciferol 50,000 unit capsule (VITAMIN D2, DRISDOL) Take 1 capsule by mouth once every month. TAKES ON FIRST DAY OF MONTH albuterol (PROVENTIL) 2.5 mg /3 mL (0.083 %) nebulizer solution Use 3 mL via nebulizer every 4 hours as needed for wheezing/shortness of breath. Use over 5-15minutes. flash glucose scanning reader (StorSimpleSTYLE HALIMA 14 DAY READER) Checks blood sugar 4 times daily polyethylene glycol 3350 (MIRALAX, GLYCOLAX) 17 gram packet Take 1 Packet by mouth twice daily as needed (constipation). senna (SENNA) 8.6 mg tab Take 1 tablet by mouth twice daily as needed (constipation). flash glucose sensor (FREESTYLE HALIMA 10 DAY SENSOR) kit 1 Each four times daily. sucralfate (CARAFATE) 1 gram tablet Take 1 tablet by mouth twice daily before meals. Patient takes as needed clobetasol (TEMOVATE) 0.05 % ointment Apply to affected area bid x 6 weeks then use weekly for maintenance diclofenac sodium (VOLTAREN) 1 % topical gel Apply 4 g to affected area four times daily. flash glucose scanning reader (FREESTYLE HALIMA 10 DAY READER) misc 1 Kit four times daily. COMPOUNDED PRESCRIPTION Zero G boot heel protector docusate sodium (COLACE) 100 mg capsule Take 1 capsule by mouth twice daily. Compression Knee Highs KNEE HIGH COMPRESSION STOCKINGS with zippers 30-40 MM. DX: I83.12 I83.11 I87.303 aspirin, enteric coated (ASPIRIN, ENTERIC COATED) 81 mg EC tablet Take 1 tablet by mouth twice daily. biotin 5 mg caspule Take 1 capsule by mouth once daily. ped multivit #43-iron fumarate (FLINTSTONES COMPLETE, IRON,) 18 mg iron chew Take 1 tablet by mouth once daily. No current facility-administered medications on file prior to visit. Social History Social History Tobacco Use Smoking status: Never Smokeless tobacco: Never Substance Use Topics Alcohol use: No Drug use: No Review of Symptoms REVIEW OF SYSTEMS GENERAL: No weight loss, malaise or fevers RESPIRATORY: Negative for cough, hemoptysis, wheezing, COPD, dyspnea or shortness of breath CARDIOVASCULAR: Negative for chest pain, leg swelling, hypertension, CHF or palpitations GI: No nausea, vomiting, or diarrhea SKIN: See HPI EXAM: BP 136/74 (BP Site: Left Arm, BP Position: Sitting, BP Cuff Size: Regular Adult) Pulse 72 Resp 16 General Appearance: Well appearing, alert, in no acute distress, well-hydrated, well nourished.seated in wheelchair. Skin: Patient with golf ball sized lump on right mid back with stage 1 ulceration just inferior. Has 5 stage 2 decubitus ulcers on buttocks. Lungs: Lungs clear to auscultation. No wheezing, rhonchi, rales.. Heart: RRR without murmur, gallop, or rubs. No ectopy. Musculoskeletal: TTP over right lower posterior ribs near palpable lump. Extremities: right LE chronically swollen without pitting edema or pain with palpation of calf. Health Maintenance List COVID-19 VACCINE(1) Never done SHINGRIX VACCINE(2 of 2) due on 12/10/2017 ADVANCE DIRECTIVE DISCUSSION Never done DEPRESSION ASSESSMENT Never done INFLUENZA(1) due on 12/06/2021 DILATED RETINAL EXAM due on 12/22/2021 HBA1C due on 05/12/2022 LDL CHOLESTEROL due on 11/09/2022 URINE ALBUMIN:CREATININE RATIO due on 11/15/2022 DIABETIC FOOT EXAM due on 11/19/2022 DTAP,TDAP,TD(5 - Td or Tdap) due on 03/18/2028 BONE DENSITY Completed PNEUMOCOCCAL: 65+ Completed ASSESSMENT/PLAN: 1. Pressure injury of sacral region, stage 2 (HCC) - ICD9: 707.03, 707.22, ICD10: L89.152 (primary diagnosis) Continue calmoseptine use and discussed shifting weight in her chair at least every 2 hours. Will refer to wound care for further management. - CONSULT TO SKIN CARE TEAM 2. 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 Discussed lump may be lipoma if imaging negative. - XR RIBS/CHEST 3V AP RIB/OBLS/CXR RIGHT 3. Rib pain on right side - ICD9: 786.50, ICD10: R07.81 See above. Treat with ice and OTC analgesics for pain. 4. At high risk for falls - ICD9: V15.88, ICD10: Z91.81 Discussed use of walker and wheelchair for ambulation. Needs to be supervised with ambulation. 5. Right leg swelling - ICD9: 729.81, ICD10: M79.89 Chronic. Workup in March negative for DVT. Red flags for re-assessment reviewed with patient in detail. Rylee Henson MD documented in this encounter [facility] 01-29-2022 Miscellaneous Notes Phoned both scripts to [facility]. Left on [facility]. Notified [facility] of cancelled medications. Iman Barrow MA Patient's daughter called to say that these 2 scripts were incorrectly sent to [facility]. Need to go to [facility] in [place]. Please resend. Patient has been identified by name and date of : Yes Requested Prescriptions Pending Prescriptions Disp Refills amLODIPine (NORVASC) 10 mg tablet 90 tablet 1 Sig: Take 1 tablet by mouth once daily. Insulin Reddick, Disposable, (BD ULTRA-FINE ROEL PEN NEEDLE) 32 gauge x 5/32 360 Each 1 Sig: Inject 1 Each subcutaneously four times daily. Use one needle with each insulin dose (4 times per day) Dx: 250.00 Insulin: yes RX INSTRUCTIONS: Patient aware RX will be sent to pharmacy. No need to notify patient. Carlie Carvajal documented in this encounter [facility] 01-29-2022 Miscellaneous Notes PLEASE SEE OTHER REFILL REQUEST 01/29/22. Iman Barrow MA Patient has been identified by name and date of : Yes Requested Prescriptions Pending Prescriptions Disp Refills amLODIPine (NORVASC) 10 mg tablet 90 tablet 1 Sig: Take 1 tablet by mouth once daily. Insulin Reddick, Disposable, 29 gauge x 1/2 200 Each 11 Sig: Use one needle with each insulin dose (4 times per day) Dx: 250.00 Insulin: yes RX INSTRUCTIONS: Patient aware RX will be sent to pharmacy. No need to notify patient. Sapna Hope documented in this encounter [facility] 01-29-2022 Miscellaneous Notes RX INSTRUCTIONS: Patient aware RX will be sent to pharmacy. No need to notify patient. Last OV: 11/19/21 with KALE Follow up: 01/30/22 with PCP Iman Barrow MA Patient has been identified by name and date of : Yes Requested Prescriptions Pending Prescriptions Disp Refills furosemide (LASIX) 40 mg tablet 90 tablet 1 Sig: Take 1 tablet by mouth once daily. levothyroxine (SYNTHROID) 100 mcg tablet 90 tablet 1 Sig: Take 1 tablet by mouth daily before breakfast. losartan (COZAAR) 25 mg tablet 90 tablet 1 Sig: Take 1 tablet by mouth once daily. Per Dr. Gandhi, nephrology RX INSTRUCTIONS: Patient aware RX will be sent to pharmacy. No need to notify patient. Sapna Hope documented in this encounter [facility] 01-08-2022 Miscellaneous Notes MARGARITA 11/19 with KALE Appointment scheduled 05/27/22 Please advise. Thank you. MING Geller Patient has been identified by name and date of : Yes Requested Prescriptions Pending Prescriptions Disp Refills levothyroxine (SYNTHROID) 100 mcg tablet 90 tablet 1 Sig: Take 1 tablet by mouth daily before breakfast. losartan (COZAAR) 25 mg tablet 90 tablet 1 Sig: Take 1 tablet by mouth once daily. Per Dr. Gandhi, nephrology RX INSTRUCTIONS: Patient aware RX escripted to mail away pharmacy. No need to notify patient. Judy Desai Pss documented in this encounter [facility] 01-07-2022 Miscellaneous Notes Pt notified via [employer] that if still having sx to call in and make appt. Paty Jones Ma Patient telephoned. Message left on home phone to call office back. Hardeep Dumont called as well, message left on her VM to call office back as well. Candida Card LPN Attempted to reach patient at numbers listed. No answer. Message left to call office and ask for a nurse. Also attempted to contact hardeep Dumont Rodriguez-left VM message to call PCP office and ask for a nurse, regarding patient. Joan Chand RN Needs evaluated in person. Please call patient to see if she was able to be evaluated. Chandrika Almonte APRN.SPIKE Patient calling said she has a cold and is coughing. she has been using otc cough syrup, it is not really helping much. Patient said she has history of pneumonia. Advised would need appt to be evaluated, patient said she has no way to get to appt today, everyone is busy. Advised may need to come to express [facility], gave her hours of operation. She is going to see if someone could bring her for evaluation. documented in this encounter [facility] 12-07-2021 Miscellaneous Notes Notified patient. Prescription for percocet sent. Chandrika Almonte APRN.CNP PDMP website checked and validated. All prescriptions have been APPROPRIATELY filled. No suspicious activity was identified. 12/07/2021 by Chandrika Almonte APRN.CNP Patient calling said the pharmacy told her the Percocet rx that was sent in on 12/03 was without Acetaminophen. Patient said her rx was on hold until spoke to office. Computer shows Percocet rx failed transmission when was escripted. Phoned pharmacy but they do not open until 9 am. Please notify patient about the rx. Reset rx to resend to pharmacy again. Please advise Patient has been identified by name and date of : Yes Patient phones for refill(s): Requested Prescriptions Pending Prescriptions Disp Refills oxyCODONE-acetaminophen (PERCOCET) 10-325 mg tablet 90 tablet 0 Sig: Take 1 tablet by mouth every 8 hours as needed for pain for up to 30 days. Date of last office visit in primary care: 11/19/2021, has appt 05/27/2022 Last 2 Encounter Wt Readings: Date: Wt: 07/25/2021 0 kg () 03/19/2021 0 kg () Previous labs/tests for medication: Not applicable Please advise. Thank you. Gail Parada LPN documented in this encounter [facility] 12-03-2021 Miscellaneous Notes Patient has been identified by name and date of : Yes Patient phones for refill(s): Requested Prescriptions Pending Prescriptions Disp Refills oxyCODONE-acetaminophen (PERCOCET) 10-325 mg tablet 90 tablet 0 Sig: Take 1 tablet by mouth every 8 hours as needed for pain for up to 30 days. Date of last office visit with pcp: 11/19/2021 Future appt: 05/27/2022 Last 2 Encounter Wt Readings: Date: Wt: 07/25/2021 0 kg () 03/19/2021 0 kg () Previous labs/tests for medication: Blood Pressure: BUN (mg/dL) Date Value 11/09/2021 22 07/10/2020 30 Sodium (mmol/L) Date Value 11/09/2021 138 07/10/2020 139 Last 1 Encounter BP Readings: Date: BP: 11/19/2021 122/60 Liver Function: ALT (U/L) Date Value 11/09/2021 10 07/10/2020 11 AST (U/L) Date Value 11/09/2021 22 07/10/2020 21 Please advise. Thank you. Soheila Beard RN documented in this encounter [facility] 11-28-2021 Miscellaneous Notes Letter mailed to pt home of results. Paty Jones MA Message left for daughter Julia to call back for update. Candida Card LPN Left message for patient to return call to office Iman Cartwright Cma ----- Message from Rylee Henson MD sent at 11/19/2021 9:13 PM EDT ----- Diabetes well controlled. Urine protein levels normal. Other labs unremarkable. No change to regimen. documented in this encounter [facility] 11-19-2021 History of Presen t illness Narrative 11/19/2021 Patient presents with: Follow Up SUBJECTIVE: This is a 86 year old that is here today for Chronic Medical Conditions.. DIABETES MELLITUS: Since our last visit she denies excessive thirst or increased frequency of urination, chest pain or dyspnea , numbness, tingling or pain in extremities, new or unusual visual symptoms, low sugar/hypoglycemic reactions, weight loss/gain, lightheadedness/dizziness, and bowel changes/loose stools. Patient admits to have low sugar/hypoglycemic reactions less than once a month. Follows a diabetic diet most of the time. She is compliant with medication(s) and is tolerating med(s) without any side effects. She reports checking her glucose on a four times a day schedule with sugars in the <150 range. Patient's last HgA1C was Hemoglobin A1C (%) Date Value 11/09/2021 6.7 07/25/2021 6.8 12/15/2020 7.6 07/10/2020 7.8 ) She feels her blood sugar is lower in the morning with most being in the 80's. She reports she does not fel well when her blood sugar is in the 80-100 range Last Ophthalmology exam was within the past 12 months HTN: Patient is compliant with meds Yes Monitors bp at home: No. Denies side effects: Yes. Chest pain: No. Dyspnea: No. Edema: No. Palpitations: No. Syncope: No. Headache: No. Dizziness: No. HYPOTHYROIDISM: taking synthroid as prescribed without side effects CHF: follows with Dr. Rae. Last visit in February. Has follow up scheduled for in March. Denies SOB, dyspnea, orthopnea, chest pain or palpitations Has chronic right shoulder and back pain for which she takes percocet. She reports it works well to control her pain Constantly feels like she has drainage down her throat. Takes Singulair daily PAST MEDICAL HISTORY Diagnosis Date Anemia Bilateral lower extremity edema CHF (congestive heart failure) ([facility]) [facility]. Chronic diastolic heart failure Chronic lower back pain DIVERTICULOSIS Essential hypertension, benign Gangrene ([facility]) 03/22/2005 Gastric ulcer, unspecified as acute or chronic, without mention of hemorrhage, perforation, or obstruction Gout Hypothyroidism Inflammatory and toxic neuropathy, unspecified Iron deficiency anemia, unspecified Lumbar spinal stenosis Macular degeneration Osteoarthritis Osteoporosis 01/25/2009 BMD 01/16/09, No sig change from baseline. Proliferative diabetic retinopathy, both eyes (HCC) inactive Renal failure, unspecified Dr. Gandhi Thrombocytopenia, unspecified (HCC) Type II 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, not stated as uncontrolled(250.60) Ulcer of other part of foot ALLERGIES Ivp Dye [Iodine], Prinzide [Lisinopril-Hydrochlorothiazide] , Faby Inhibitors, and Neomycin MEDICATIONS Current Outpatient Medications Medication Sig oxyCODONE-acetaminophen (PERCOCET) 10-325 mg tablet Take 1 tablet by mouth every 8 hours as needed for pain for up to 30 days. amLODIPine (NORVASC) 10 mg tablet Take 1 tablet by mouth once daily. IFEREX 150 150 mg iron capsule Take 1 capsule by mouth every other day. insulin aspart U-100 (NOVOLOG FLEXPEN U-100 INSULIN) 100 unit/mL (3 mL) Inject subcutaneously. WITH FIRST BITE OF FOOD, 5 UNITS W/BREAKFAST, 5 UNITS W/LUNCH, 5 UNITS W/DINNER (BOX OF 5 CARTRIDGES) ondansetron orally disintegrating (ZOFRAN ODT) 4 mg disintegrating tablet Take 1 tablet by mouth every 8 hours As Needed for nausea and vomiting pantoprazole DR (PROTONIX) 40 mg tablet Take by mouth. furosemide (LASIX) 40 mg tablet Take 1 tablet by mouth once daily. levothyroxine (SYNTHROID) 100 mcg tablet Take 1 tablet by mouth daily before breakfast. losartan (COZAAR) 25 mg tablet Take 1 tablet by mouth once daily. Per Dr. Gandhi, nephrology montelukast (SINGULAIR) 10 mg tablet Take 1 tablet by mouth daily at bedtime. allopurinol (ZYLOPRIM) 100 mg tablet Take 1 tablet by mouth once daily. folic acid 1 mg tablet Take 1 tablet by mouth twice daily. insulin glargine (LANTUS SOLOSTAR U-100 INSULIN) 100 unit/mL (3 mL) Take 6 units daily (box of 5 pens). meclizine (ANTIVERT) 12.5 mg tab Take 1 tablet by mouth twice daily as needed (dizziness). flash glucose sensor (FREESTYLE HALIMA 14 DAY SENSOR) kit 1 Each four times daily. ergocalciferol 50,000 unit capsule (VITAMIN D2, DRISDOL) Take 1 capsule by mouth once every month. TAKES ON FIRST DAY OF MONTH albuterol (PROVENTIL) 2.5 mg /3 mL (0.083 %) nebulizer solution Use 3 mL via nebulizer every 4 hours as needed for wheezing/shortness of breath. Use over 5-15minutes. Insulin Reddick, Disposable, 29 gauge x 1/2 Use one needle with each insulin dose (4 times per day) Dx: 250.00 Insulin: yes flash glucose scanning reader (FREESTYLE HALIMA 14 DAY READER) Checks blood sugar 4 times daily polyethylene glycol 3350 (MIRALAX, GLYCOLAX) 17 gram packet Take 1 Packet by mouth twice daily as needed (constipation). senna (SENNA) 8.6 mg tab Take 1 tablet by mouth twice daily as needed (constipation). flash glucose sensor (FREESTYLE HALIMA 10 DAY SENSOR) kit 1 Each four times daily. sucralfate (CARAFATE) 1 gram tablet Take 1 tablet by mouth twice daily before meals. Patient takes as needed clobetasol (TEMOVATE) 0.05 % ointment Apply to affected area bid x 6 weeks then use weekly for maintenance diclofenac sodium (VOLTAREN) 1 % topical gel Apply 4 g to affected area four times daily. flash glucose scanning reader (FREESTYLE HALIMA 10 DAY READER) misc 1 Kit four times daily. COMPOUNDED PRESCRIPTION Zero G boot heel protector docusate sodium (COLACE) 100 mg capsule Take 1 capsule by mouth twice daily. Compression Knee Highs KNEE HIGH COMPRESSION STOCKINGS with zippers 30-40 MM. DX: I83.12 I83.11 I87.303 aspirin, enteric coated (ADULT LOW DOSE ASPIRIN) 81 mg EC tablet Take 1 tablet by mouth twice daily. biotin 5 mg caspule Take 1 capsule by mouth once daily. ped multivit #43-iron fumarate (FLINTSTONES COMPLETE, IRON,) 18 mg iron chew Take 1 tablet by mouth once daily. No current facility-administered medications for this visit. Medications and allergies reviewed by this provider. SOCIAL HISTORY Social History Tobacco Use Smoking status: Never Smokeless tobacco: Never Substance Use Topics Alcohol use: No Drug use: No REVIEW OF SYSTEMS All other reviewed and negative other than HPI. OBJECTIVE: BP 122/60 Pulse 83 Temp 37.2 C (98.9 F) Resp 18 SpO2 97% . Vital signs reviewed by this provider. APPEARANCE Well appearing, alert, in no acute distress, well-hydrated, well nourished. EYES PERRLA, conjunctiva and sclera normal. HEART RRR with normal S1 and S2, no murmurs, no gallops, no JVD appreciated LUNG clear to auscultation. No wheezes, rhonchi, or rales EXTREMITIES positive findings: normal exam of the extremities, edema present bilaterally: Trace SKIN Skin color, texture, turgor normal, no suspicious rashes or lesions to exposed skin DM foot exam: shoes and socks removed, No deformities, ulcers, calluses, Abnormal pulses Decreased bilaterally, and not sensitive to monofilament Component Latest Ref Rng & Units 11/09/2021 11/15/2021 Protein, Total 6.3 - 8.0 g/dL 7.2 Albumin 3.9 - 4.9 g/dL 4.2 Calcium 8.5 - 10.2 mg/dL 9.8 Bilirubin, Total 0.2 - 1.3 mg/dL 0.5 Alkaline Phosphatase 34 - 123 U/L 86 AST 13 - 35 U/L 22 ALT 7 - 38 U/L 10 Glucose 74 - 99 mg/dL 150 (H) BUN 7 - 21 mg/dL 22 (H) Creatinine 0.58 - 0.96 mg/dL 0.91 Sodium 136 - 144 mmol/L 138 Potassium 3.7 - 5.1 mmol/L 4.4 Chloride 97 - 105 mmol/L 98 CO2 22 - 30 mmol/L 30 Anion Gap 9 - 18 mmol/L 10 eGFR >=60 mL/min/1.73m 61 Total Cholesterol, Nonfasting <200 mg/dL 175 Triglycerides, Nonfasting <150 mg/dL 58 HDL Cholesterol, Nonfasting >39 mg/dL 69 LDL Cholesterol, Nonfasting <100 mg/dL 94 Non HDL Cholesterol, Nonfasting <130 mg/dL 106 VLDL Cholesterol, Nonfasting <30 mg/dL 12 Total Chol/HDL Ratio, Nonfasting <5.10 mg/dL 2.54 LDL/HDL Ratio, Nonfasting <2.54 mg/dL 1.36 Creatinine, Ur Random (UCRR) 20.0 - 300.0 mg/dL 96.9 Albumin, Urine Random mg/L 23.4 Albumin/Creat Ratio <30 mg/g 24 Hemoglobin A1C 4.3 - 5.6 % 6.7 (H) Estimated Average Glucose mg/dL 146 COVID-19 VACCINE(1) Never done SHINGRIX VACCINE(2 of 2) due on 12/10/2017 ADVANCE DIRECTIVE DISCUSSION Never done INFLUENZA(1) due on 12/06/2021 DILATED RETINAL EXAM due on 12/22/2021 HBA1C due on 05/12/2022 LDL CHOLESTEROL due on 11/09/2022 URINE ALBUMIN:CREATININE RATIO due on 11/15/2022 DIABETIC FOOT EXAM due on 11/19/2022 DTAP,TDAP,TD(5 - Td or Tdap) due on 03/18/2028 BONE DENSITY Completed PNEUMOCOCCAL: 65+ Completed ASSESSMENT/PLAN: 1. DM (diabetes mellitus), type 2 with neurological complications (HCC) - ICD9: 250.60, ICD10: E11.49 (primary diagnosis) Controlled. - Decrease Lantus 4 units QPM - is to call if fasting blood sugars consistently higher than 120 fasting or mealtime/ nighttime blood sugars greater than 160 consistently - Blood glucose monitoring on a four times a day schedule - Encouraged regular aerobic exercise and weight loss - BP goal of <130/80 - INSULIN GLARGINE (U-100) 100 UNIT/ML (3 ML) SUBCUTANEOUS PEN - HGB A1C - COMP METABOLIC PANEL - follow-up in 6 months, sooner if needed 2. Acquired hypothyroidism - ICD9: 244.9, ICD10: E03.9 - Instructed patient on importance of taking on an empty stomach either first thing in the morning or at bedtime. - continue current dose of Synthroid 0.100 mg - Follow up in 6 months - TSH BLD 3. Essential hypertension - ICD9: 401.9, ICD10: I10 - good control - Continue current medication(s) - Encouraged dietary sodium restriction/DASH diet - Recommended regular aerobic exercise. - Recommend home blood pressure monitoring, to bring results in on next visit - Discussed need and benefit for weight loss. - Goal of BP <130/80 - Recommended no refined sugar, low refined starch, healthy oil intake (olive oil), healthy protein (fish) along the lines of the Mediterranean diet. - INSULIN GLARGINE (U-100) 100 UNIT/ML (3 ML) SUBCUTANEOUS PEN - COMP METABOLIC PANEL 4. CKD (chronic kidney disease) stage 3, GFR 30-59 ml/min (HCC) - ICD9: 585.3, ICD10: N18.30 - stable - continue low salt diet, avoid NSAID products and stay well hydrated 5. Chronic bilateral low back pain with bilateral sciatica - ICD9: 724.2, 724.3, 338.29, ICD10: M54.42, M54.41, G89.29 - continue percocet as ordered for pain control 6. Chronic narcotic use - ICD9: 305.50, ICD10: F11.90 - plan as in #5 7. Chronic diastolic congestive heart failure (HCC) - ICD9: 428.32, 428.0, ICD10: I50.32 - stable at this time - continue current medications and follow-up with cardiology as scheduled 8. Postnasal drip - ICD9: 784.91, ICD10: R09.82 - AZELASTINE 137 MCG (0.1 %) NASAL SPRAY AEROSOL - follow-up if symptoms fail to improve Chandrika Almonte APRN.SPIKE I spent a total of 30 minutes on the date of the service which included preparing to see the patient, [id number] patient care, completing clinical documentation, obtaining and/or reviewing separately obtained history, performing a medically appropriate examination, counseling and educating the patient/family/caregiver, and ordering medications, tests, or procedures. documented in this encounter [facility] 11-01-2021 Miscellaneous Notes PDMP website checked and validated. All prescriptions have been APPROPRIATELY filled. No suspicious activity was identified. 11/01/2021 by Rylee Henson MD Patient calling with request that Percocet script be filled. She states she scheduled appointment for 11/12 with PCP. Stephanie Us RN Phoned patient's daughter and message left for her to call and schedule OV for her mom in next 1-2 weeks as patient is past due for OV. Advised amlodipine Rx had been sent. Spoke to patient and she advised that her daughter usually makes appointments. Advised patient I would contact her daughter. Patient thanked me and said that would work best. rx sent for amlodipine. Patient is overdue for routine follow up in office. Please call to schedule OV in the next 1-2 weeks as available. Pt requesting refills. Call only if problem MARGARITA 07/25/21 NOV None scheduled Chris Shahid LPN documented in this encounter [facility] 10-31-2021 Miscellaneous Notes Phoned patient and given provider's message below with verbalized understanding. Labs ordered to be completed 2 days prior to OV. Patient made appt with Dr. Henson for 11/12/21. She is asking if provider would like to order any labs prior to this appt? Please advise patient. Thank you. documented in this encounter [facility] 10-03-2021 Miscellaneous Notes Daughter did pickle cutter the Percocet prescription. Mayela Jordan LPN Patient's friend, who did not give her name, reports patient is in the bathroom. Reports [facility] tells them they ([facility]) did not get the percocet Rx written on 09-28-21. This nurse spoke with Eliel, pharmacist, [facility], who reports someone picked it up on 09-30-21 at 3:07 pm. Reports they signed for it, but he was unable to read the signature. documented in this encounter [facility] 10-02-2021 Miscellaneous Notes Moriah from [facility], she is requesting notes from last office visit, has order for diabetes supplies. Office notes from 07/25/21 faxed to [phone] via [employer]. Michelle Duran LPN documented in this encounter [facility] 09-28-2021 Miscellaneous Notes PDMP website checked and validated. All prescriptions have been APPROPRIATELY filled. No suspicious activity was identified. 09/28/2021 by Chandrika Almonte APRN.SPIKE Patient has been identified by name and date of : Yes Patient phones for refill(s): Pending Prescriptions Disp Refills OXYCODONE-ACETAMINOPHEN 10 MG-325 MG TABLET 90 tablet 0 Sig: Take 1 tablet by mouth every 8 hours as needed for pain for up to 30 days. KAYLA Class: C-II ANTOINE: No Date of last office visit in primary care: 07/25/21 Future visit: none Last 2 Encounter Wt Readings: Date: Wt: 07/25/2021 0 kg () 03/19/2021 0 kg () Previous labs/tests for medication: Blood Pressure: BUN (mg/dL) Date Value 07/25/2021 27 07/10/2020 30 Sodium (mmol/L) Date Value 07/25/2021 134 07/10/2020 139 Last 1 Encounter BP Readings: Date: BP: 07/25/2021 180/71[JOSE ANGEL BP[ Liver Function: ALT (U/L) Date Value 07/25/2021 14 07/10/2020 11 AST (U/L) Date Value 07/25/2021 29 07/10/2020 21 Please advise. Thank you. Deysi Borrego RN documented in this encounter [facility] 09-19-2021 Miscellaneous Notes Daughter notified. Mayela Jordan LPN Order for patch sent. Thanks, Chandrika Almonte APRN.ELECTRONIC REPAIR TROUBLESHOOTER Judy with [facility] called in and reports they used Mepilex border sacral dressing. States the dressing wasn't medicated, and didn't have any orders or notation of any cream used. Spoke with pt and she states she was in the hospital back in July. Pt states she has had the wound for years. IT will heal up then will break open. She uses a cream and the patches. She describes the patches as butterfly shaped. Pt gave me the phone number for Judy [phone] with [facility] who had given them to her in the past. I left a message for uJdy to call the office and ask to speak to a nurse. Checking to see what was given to the pt. Please route back to provider when we get the information. Mayela Jordan LPN Was patient recently in hospital? How long has she had the wound? I do not have the name of patches so I can not order. Are they able to tell me what they are using? Thanks, Chandrika Almonte APRN.SPIKE 1. Pt called and requesting patches that have medication on them for a bed sore she has on her bottom. She changes the patch every 3 to 5 days. She had gotten some from the hospital but they have run out. Please advise pt. 2. refill on medication Patient has been identified by name and date of : Yes Patient phones for refill(s): Pending Prescriptions Disp Refills IFEREX 150 150 MG IRON CAPSULE 45 capsule 1 Sig: Take 1 capsule by mouth every other day. ANTOINE: Yes Date of last office visit in primary care: 07/25/21 Last 2 Encounter Wt Readings: Date: Wt: 07/25/2021 0 kg () 03/19/2021 0 kg () Previous labs/tests for medication: Not applicable Please advise. Thank you. Mayela Jordan LPN documented in this encounter [facility] 08-30-2021 Miscellaneous Notes PDMP website checked and validated. All prescriptions have been APPROPRIATELY filled. No suspicious activity was identified. 08/30/2021 by Rylee Henson MD Patient has been identified by name and date of : Yes Patient phones for refill(s): Pending Prescriptions Disp Refills OXYCODONE-ACETAMINOPHEN 10 MG-325 MG TABLET 90 tablet 0 Sig: Take 1 tablet by mouth every 8 hours as needed for pain for up to 30 days. KAYLA Class: C-II ANTOINE: No Date of last office visit in primary care: 07/25/2021; Future Appt. none Last 2 Encounter Wt Readings: Date: Wt: 07/25/2021 0 kg () 03/19/2021 0 kg () Previous labs/tests for medication: Blood Pressure: BUN (mg/dL) Date Value 07/25/2021 27 07/10/2020 30 Sodium (mmol/L) Date Value 07/25/2021 134 07/10/2020 139 Last 1 Encounter BP Readings: Date: BP: 07/25/2021 180/71[JOSE ANGEL BP[ Liver Function: ALT (U/L) Date Value 07/25/2021 14 07/10/2020 11 AST (U/L) Date Value 07/25/2021 29 07/10/2020 21 Please advise. Thank you. Deisy Will RN documented in this encounter [facility] 08-10-2021 Miscellaneous Notes TC to patient's daughter, per message below, who verbalizes understanding of providers message and has no questions at this time. MING Geller BP improving. Continue current regimen. Her sugars are pretty good overall. On 08/06 and before bed a couple nights her sugars were high. I suspect this is from not adhering to her diet. I would have her continue her current regimen and work on eating 45-60 grams of carbs per meal. Sintia - caregiver - reporting BP and BS readings for the past week: BP: Sun 5-1: 130/79. Mon 5-2: 136/56 Tues 5-3: 141/67 Wed 5-4: 139/66 Thurs 5-5: 134/64 BS: Fasting, Lunch, Dinner, Bedtime 5-1: 128, 112, 177, 188 5-2: 152, 223, 200, 179 5-3: 144, 140, 160, 229 5-4: 142, 121, 177, 123 5-5: 141, 178, 127, 212 5-6: 115, 135 Novolog 5 units with breakfast, lunch, & dinner. Lantus 6 units daily at bedtime. Reports pcp added amlodipine 10 mg daily. Reports patient is improved and feeling better. Call hardeep Dumont with any changes: [phone] documented in this encounter [facility] 08-03-2021 Miscellaneous Notes Patient returned call and went over notes from Chandrika Almonte FAILURE ANALYSIS ENGINEER caregiver was listening also with understanding. Caregiver will give information to patient daughter. Called and left a voicemail for the Patient to call back and ask for a nurse to receive the providers message. Deysi Borrego RN Please call and let patient know I sent prescription in. Follow-up if not improving. Chandrika Almonte APRN.SPIKE Patient and Lizzy calls in. Provider message below given. Both verbalize understanding with no further questions. Patient is requesting an order for nystatin powder be sent to [facility]. Patient reports they ordered it at the hospital for redness/yeast under abdominal folds/breasts and it has helped but she is almost out. Order pended. Soheila Beard RN BP occasionally high. Recommend increasing her amlodipine to 10 mg daily to help control this. Continue to monitor daily and call with update in 1 week or sooner with BP <100/60. Sugars have been higher around meal times. Will increase her Novolog to 5 units with each meal. Call in 1 week with update or sooner with sugar <80. Pt called in with an update on her blood pressure and blood sugar. Blood Pressure Blood Sugar (07/26) Tu (07/31) 150/62 bf PT 187 dinner 132/80 af PT 237 bedtime Mon (07/30) Fri (08/01) 158/63 100 breakfast Tu (07/31) 128 lunch 165/70 177 dinner Wed (08/01) 199 bedtime 117/58 Thur (08/02) Thur (08/02) 158 breakfast 153/72 145 lunch Fri (08/03) 200 dinner L arm 119/39 220 bedtime R arm 105/51 Fri (08/03) 163 breakfast Pt reports that she had been using the insulin pens from the hospital until . she started using her own insulin pens again. documented in this encounter [facility] 07-31-2021 Miscellaneous Notes Patient telephoned. Voiced understanding. Denies having any signs of infection. Candida Card LPN I would have her check her sugars 4 times per day, before each meal and before bed and write numbers down. Call on Friday with glucose readings. Stick to 45-60 grams of carbs per meal. If she is having signs of infection such as UTI, cough/SOB or wheezing, abdominal pain, rash, or fever should come to for immediate evaluation instead. Patient returned call and given provider's message below. Patient reports she is getting BS readings in the 200's at night. Reports she is eating healthy. Patient telephoned. Spoke with sales representative girls[employer] apparel, will have patient call back when she is out of the restroom. Candida Card LPN Her sugars are not low in the morning and her A1C on 07/25 was in great range at 6.8. What did she eat before her sugar was 270 last night? PDMP website checked and validated. All prescriptions have been APPROPRIATELY filled. No suspicious activity was identified. 07/30/2021 by Rylee Henson MD Patient calling and reports she has noticed her blood sugars being over 200 over since 07/26 and that is not usual for her. She reports last night it as 269. She also reports she has not been feeling well every morning, but after she eats breakfast she feels better. She believes she has not been feeling well in the morning because she believes her blood sugars are low. Here are her latest morning blood sugars: 07/26 99 07/27 98 07/28 101 07/29 102 07/30 99 She reports she is taking her insulins as ordered: Novolog 4 units with meals and Lantus 6 units every bedtime. Reminded patient that she is to make a 1 month F/U appt also per last OV note with Chandrika. Patient states her daughter has to make the appt due to transportation issues. Patient also requesting refill on her percocet as pended. Please advise patient regarding blood sugars. Thank you. Patient has been identified by name and date of : Yes Patient phones for refill(s): Pending Prescriptions Disp Refills OXYCODONE-ACETAMINOPHEN 10 MG-325 MG TABLET Sig: Take 1 tablet by mouth every 8 hours as needed for pain for up to 30 days. KAYLA Class: C-II ANTOINE: No Date of last office visit in primary care: 07/25/21, NOV: not scheduled yet Last 2 Encounter Wt Readings: Date: Wt: 07/25/2021 0 kg () 03/19/2021 0 kg () documented in this encounter [facility] 07-31-2021 Miscellaneous Notes Patient returned call and given provider's message below with verbalized understanding. Patient reports she started the BP medication and will call back to schedule appt. Patient was supposed to start new BP medication and follow-up for nurse visit in 2 weeks. Has she started medication? If not she needs to start and then male follow-up appointment. Chandrika Almonte APRN.SPIKE [facility] phoned to report she saw patient today. First BP reading, after patient returned from bathroom: 165/70. BP at end of session: 176/71. Patient asymptomatic. Patient reported she was having a little nausea today. documented in this encounter [facility] 07-27-2021 Miscellaneous Notes Patient returned call and given provider's message below and patient verbalized understanding. Mary Anne Chand RN Called and left a voicemail for the Patient to call back and ask for a nurse to receive the providers message. Deysi Borrego RN Please call patient and let her know her iron stores are elevated- likely due from recent injury. A1c has improved. The rest of her blood work is in acceptable ranges. Continue current medications. Follow-up as scheduled Thanks, Chandrika Almonte APRN.SPIKE documented in this encounter [facility] 07-26-2021 Miscellaneous Notes Phoned patient's daughter Julia Rodriguez and updated of new order and PCP's recommendation for 2 week follow up [place]. Patient's daughter voiced understanding and stated she would pickle cutter medication and once patient started medication she would call and schedule nurse visit. BP poorly controlled in office and at home. Recommend adding amlodipine 5 mg daily to regimen and rechecking in 2 weeks at [place]. Fiona PT from [facility] calls to report patient's blood pressures during physical therapy today. Patient's blood pressure was 168/76 after walking to bathroom and back to chair. After patient was done with PT exercises patient's blood pressure was 150/62. Fiona reports that patient was a little dizzy at end of session however after a minute or 2 after sitting dizziness had gone away. Deisy Will RN documented in this encounter [facility] 07-26-2021 Miscellaneous Notes Reviewed. Stacie from [facility] Home Health plan of care for OT. One time visit today, patient has caregiver and lives with family members, she is back to baseline, no new needs. She did do safety check of home and gave some suggestions. documented in this encounter [facility] 07-24-2021 Miscellaneous Notes Reviewed and agree. Fiona with [facility], PT plan of care: Will see pt 2 times a week for 4 weeks for extremities strengthening, transfer, gait training and balance. No call back needed. Mayela Jordan LPN documented in this encounter [facility] 07-23-2021 Miscellaneous Notes Phoned patient's daughter Shirlene Rodriguez and VM full. Phoned Narinder Deejay mackenzie advised patient already has an appt scheduled for 07/25 with Chandrika that was set up before patient was discharged. documented in this encounter [facility] 07-23-2021 Miscellaneous Notes Autumn from [facility] called and is notified of providers results and instructions. She voices understanding. Deysi Borrego, RN Agree with plan of care. If she has been taking her 40 mg lasix daily, increase to BID for the next 2-3 days and call if swelling not improving. Autumn from [facility] Home Health calling began start of care today for skilled nusring. Plan of care 2 visits weekly for 1 week, then 2 visits weekly for 4 weeks. PT/OT will evaluate and treat. Patient has stage 1 on right buttock asking for order to use Meplix dressing to pad and protect, change every 3 to 5 days as needed. Patient has 3+ pitting edema richie legs, wearing compression socks, elevates legs when she can. Patient temp was 99.2 she was under many blankets and home was very warm. Please advise documented in this encounter [facility] 07-10-2021 Miscellaneous Notes Patient telephoned. Requesting it be sent to [facility] in [place]. Faxed to [facility] at this time. Candida Card LPN Please fax prescription in my out box to patient's requested pharmacy. Chandrika Almonte APRN.ELECTRONIC REPAIR TROUBLESHOOTER documented in this encounter [facility] 06-29-2021 Miscellaneous Notes PDMP website checked and validated. All prescriptions have been APPROPRIATELY filled. No suspicious activity was identified. 06/29/2021 by Rylee Henson MD Patient has been identified by name and date of : Yes Patient phones for refill(s): Pending Prescriptions Disp Refills OXYCODONE-ACETAMINOPHEN 10 MG-325 MG TABLET 90 tablet 0 Sig: Take 1 tablet by mouth every 8 hours as needed for pain for up to 30 days. KAYLA Class: C-II ANTOINE: No Date of last office visit with pcp: 03/19/2021 Future appt: none Last 2 Encounter Wt Readings: Date: Wt: 03/19/2021 0 kg () 12/15/2020 0 kg () Previous labs/tests for medication: Blood Pressure: BUN (mg/dL) Date Value 07/10/2020 30 Sodium (mmol/L) Date Value 07/10/2020 139 Last 1 Encounter BP Readings: Date: BP: 03/19/2021 114/80 Liver Function: ALT (U/L) Date Value 07/10/2020 11 AST (U/L) Date Value 07/10/2020 21 Please advise. Thank you. Soheila Beard RN documented in this encounter [facility] 06-27-2021 Miscellaneous Notes Faxed at this time. Candida Card LPN Please fax printed prescription in my outbox to [facility] at [phone]. 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, with long-term current use of insulin 03/02/2016 08/27/2016 Chronic low back pain 09/29/2014 08/11/2015 Decubitus ulcer of sacral region, stage 2 201406/19/2018 Peripheral neuropathy 06/23/2014 06/21/2020 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 10/21/2013 06/19/2018 CKD (chronic kidney disease) stage 4, GFR 15-29 ml/min 10/21/2013 05/30/2014 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, not stated as uncontrolled(250.51) 09/30/2013 Type II 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, not stated as uncontrolled(250.60) 09/30/2013 01/06/2014 CKD stage G4/A1, GFR 15 - 29 and albumin creatinine ratio <30 mg/g 08/30/2013 05/30/2014 Abnormal gait 03/23/2012 06/21/2020 CRI (chronic renal insufficiency) 11/04/2010 02/20/2017 CRF (chronic renal failure) 07/02/201010/07 Osteoarthritis of knee 09/07/2009 7 Brachial neuritis or radiculitis NOS 04/13/2009 06/21/2020 Ulcer of heel and midfoot 10/08/20072018 ECZEMATOUS DERMATITIS NOS 06/04/20062020 STASIS DERMATITIS///LEG VARICOSITY W INFLAM 12/0602/17/2020 XEROSIS///SEBACEOUS GLAND DIS NEC 12/19/2005 02/17/2020 Closed fracture of head of radius 07/01/2005 08/20/2005 Type I (juvenile type) diabe [place] mellitus without mention of complication, not stated as uncontrolled 05/29/2009 Edema 08/02/2014 DIABETES TYPE II W NEURO MANIFESTATIONS 09/30/2013 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 Ulcer of other part of foot 12/06 Essential hypertension, benign 1 04/22/2016 Thrombocytopenia, unspecified Bilateral lower extremity edema 02/17/2020 documented as of this encounter (statuses as of 06/27/2021) [facility]03-[facility]2019 History of Past illness Narrative* Problem Noted Date Resolved Date Chronic diastolic CHF (congestive heart failure) 06/19/2018 02/17/2020 Acute pain of right shoulder 11/24/2017 Left knee pain 01/07/2017 12/21/2019 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, with long-term current use of insulin 03/02/2016 08/27/2016 Chronic low back pain 09/29/2014 08/11/2015 Decubitus ulcer of sacral region, stage 2 201406/19/2018 Peripheral neuropathy 06/23/2014 06/21/2020 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 10/21/2013 06/19/2018 CKD (chronic kidney disease) stage 4, GFR 15-29 ml/min 10/21/2013 05/30/2014 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, not stated as uncontrolled(250.51) 09/30/2013 Type II 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, not stated as uncontrolled(250.60) 09/30/2013 01/06/2014 CKD stage G4/A1, GFR 15 - 29 and albumin creatinine ratio <30 mg/g 08/30/2013 05/30/2014 Abnormal gait 03/23/2012 06/21/2020 CRI (chronic renal insufficiency) 11/04/2010 02/20/2017 CRF (chronic renal failure) 07/02/201010/07 Osteoarthritis of knee 09/07/2009 7 Brachial neuritis or radiculitis NOS 04/13/2009 06/21/2020 Ulcer of heel and midfoot 10/08/20072018 ECZEMATOUS DERMATITIS NOS 06/04/20062020 STASIS DERMATITIS///LEG VARICOSITY W INFLAM 12/0602/17/2020 XEROSIS///SEBACEOUS GLAND DIS NEC 12/19/2005 02/17/2020 Closed fracture of head of radius 07/01/2005 08/20/2005 Type I (juvenile type) diabe [place] mellitus without mention of complication, not stated as uncontrolled 05/29/2009 Edema 08/02/2014 DIABETES TYPE II W NEURO MANIFESTATIONS 09/30/2013 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 Ulcer of other part of foot 12/06 Essential hypertension, benign 1 04/22/2016 Thrombocytopenia, unspecified Bilateral lower extremity edema 02/17/2020 documented as of this encounter (statuses as of 07/12/2021) [facility]2019 History of Past illness Narrative* Problem Noted Date Resolved Date Chronic diastolic CHF (congestive heart failure) 06/19/2018 02/17/2020 Acute pain of right shoulder 11/24/2017 Left knee pain 01/07/2017 12/21/2019 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, with long-term current use of insulin 03/02/2016 08/27/2016 Chronic low back pain 09/29/2014 08/11/2015 Decubitus ulcer of sacral region, stage 2 201406/19/2018 Peripheral neuropathy 06/23/2014 06/21/2020 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 10/21/2013 06/19/2018 CKD (chronic kidney disease) stage 4, GFR 15-29 ml/min 10/21/2013 05/30/2014 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, not stated as uncontrolled(250.51) 09/30/2013 Type II 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, not stated as uncontrolled(250.60) 09/30/2013 01/06/2014 CKD stage G4/A1, GFR 15 - 29 and albumin creatinine ratio <30 mg/g 08/30/2013 05/30/2014 Abnormal gait 03/23/2012 06/21/2020 CRI (chronic renal insufficiency) 11/04/2010 02/20/2017 CRF (chronic renal failure) 07/02/201010/07 Osteoarthritis of knee 09/07/2009 7 Brachial neuritis or radiculitis NOS 04/13/2009 06/21/2020 Ulcer of heel and midfoot 10/08/20072018 ECZEMATOUS DERMATITIS NOS 06/04/20062020 STASIS DERMATITIS///LEG VARICOSITY W INFLAM 12/0602/17/2020 XEROSIS///SEBACEOUS GLAND DIS NEC 12/19/2005 02/17/2020 Closed fracture of head of radius 07/01/2005 08/20/2005 Type I (juvenile type) diabe [place] mellitus without mention of complication, not stated as uncontrolled 05/29/2009 Edema 08/02/2014 DIABETES TYPE II W NEURO MANIFESTATIONS 09/30/2013 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 Ulcer of other part of foot 12/06 Essential hypertension, benign 1 04/22/2016 Thrombocytopenia, unspecified Bilateral lower extremity edema 02/17/2020 documented as of this encounter (statuses as of 07/23/2021) [facility]2019 History of Past illness Narrative* Problem Noted Date Resolved Date Chronic diastolic CHF (congestive heart failure) 06/19/2018 02/17/2020 Acute pain of right shoulder 11/24/2017 Left knee pain 01/07/2017 12/21/2019 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, with long-term current use of insulin 03/02/2016 08/27/2016 Chronic low back pain 09/29/2014 08/11/2015 Decubitus ulcer of sacral region, stage 2 201406/19/2018 Peripheral neuropathy 06/23/2014 06/21/2020 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 10/21/2013 06/19/2018 CKD (chronic kidney disease) stage 4, GFR 15-29 ml/min 10/21/2013 05/30/2014 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, not stated as uncontrolled(250.51) 09/30/2013 Type II 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, not stated as uncontrolled(250.60) 09/30/2013 01/06/2014 CKD stage G4/A1, GFR 15 - 29 and albumin creatinine ratio <30 mg/g 08/30/2013 05/30/2014 Abnormal gait 03/23/2012 06/21/2020 CRI (chronic renal insufficiency) 11/04/2010 02/20/2017 CRF (chronic renal failure) 07/02/201010/07 Osteoarthritis of knee 09/07/2009 7 Brachial neuritis or radiculitis NOS 04/13/2009 06/21/2020 Ulcer of heel and midfoot 10/08/20072018 ECZEMATOUS DERMATITIS NOS 06/04/20062020 STASIS DERMATITIS///LEG VARICOSITY W INFLAM 12/0602/17/2020 XEROSIS///SEBACEOUS GLAND DIS NEC 12/19/2005 02/17/2020 Closed fracture of head of radius 07/01/2005 08/20/2005 Type I (juvenile type) diabe [place] mellitus without mention of complication, not stated as uncontrolled 05/29/2009 Edema 08/02/2014 DIABETES TYPE II W NEURO MANIFESTATIONS 09/30/2013 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 Ulcer of other part of foot 12/06 Essential hypertension, benign 1 04/22/2016 Thrombocytopenia, unspecified Bilateral lower extremity edema 02/17/2020 documented as of this encounter (statuses as of 07/25/2021) [facility] History of Past illness Narrative* Problem Noted Date Resolved Date Chronic diastolic CHF (congestive heart failure) 06/19/2018 02/17/2020 Acute pain of right shoulder 11/24/2017 Left knee pain 01/07/2017 12/21/2019 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, with long-term current use of insulin 03/02/2016 08/27/2016 Chronic low back pain 09/29/2014 08/11/2015 Decubitus ulcer of sacral region, stage 2 201406/19/2018 Peripheral neuropathy 06/23/2014 06/21/2020 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 10/21/2013 06/19/2018 CKD (chronic kidney disease) stage 4, GFR 15-29 ml/min 10/21/2013 05/30/2014 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, not stated as uncontrolled(250.51) 09/30/2013 Type II 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, not stated as uncontrolled(250.60) 09/30/2013 01/06/2014 CKD stage G4/A1, GFR 15 - 29 and albumin creatinine ratio <30 mg/g 08/30/2013 05/30/2014 Abnormal gait 03/23/2012 06/21/2020 CRI (chronic renal insufficiency) 11/04/2010 02/20/2017 CRF (chronic renal failure) 07/02/201010/07 Osteoarthritis of knee 09/07/2009 7 Brachial neuritis or radiculitis NOS 04/13/2009 06/21/2020 Ulcer of heel and midfoot 10/08/20072018 ECZEMATOUS DERMATITIS NOS 06/04/20062020 STASIS DERMATITIS///LEG VARICOSITY W INFLAM 12/0602/17/2020 XEROSIS///SEBACEOUS GLAND DIS NEC 12/19/2005 02/17/2020 Closed fracture of head of radius 07/01/2005 08/20/2005 Type I (juvenile type) diabe [place] mellitus without mention of complication, not stated as uncontrolled 05/29/2009 Edema 08/02/2014 DIABETES TYPE II W NEURO MANIFESTATIONS 09/30/2013 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 Ulcer of other part of foot 12/06 Essential hypertension, benign 1 04/22/2016 Thrombocytopenia, unspecified Bilateral lower extremity edema 02/17/2020 documented as of this encounter (statuses as of 07/27/2021) [facility] History of Past illness Narrative* Problem Noted Date Resolved Date Chronic diastolic CHF (congestive heart failure) 06/19/2018 02/17/2020 Acute pain of right shoulder 11/24/2017 Left knee pain 01/07/2017 12/21/2019 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, with long-term current use of insulin 03/02/2016 08/27/2016 Chronic low back pain 09/29/2014 08/11/2015 Decubitus ulcer of sacral region, stage 2 201406/19/2018 Peripheral neuropathy 06/23/2014 06/21/2020 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 10/21/2013 06/19/2018 CKD (chronic kidney disease) stage 4, GFR 15-29 ml/min 10/21/2013 05/30/2014 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, not stated as uncontrolled(250.51) 09/30/2013 Type II 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, not stated as uncontrolled(250.60) 09/30/2013 01/06/2014 CKD stage G4/A1, GFR 15 - 29 and albumin creatinine ratio <30 mg/g 08/30/2013 05/30/2014 Abnormal gait 03/23/2012 06/21/2020 CRI (chronic renal insufficiency) 11/04/2010 02/20/2017 CRF (chronic renal failure) 07/02/201010/07 Osteoarthritis of knee 09/07/2009 7 Brachial neuritis or radiculitis NOS 04/13/2009 06/21/2020 Ulcer of heel and midfoot 10/08/20072018 ECZEMATOUS DERMATITIS NOS 06/04/20062020 STASIS DERMATITIS///LEG VARICOSITY W INFLAM 12/0602/17/2020 XEROSIS///SEBACEOUS GLAND DIS NEC 12/19/2005 02/17/2020 Closed fracture of head of radius 07/01/2005 08/20/2005 Type I (juvenile type) diabe [place] mellitus without mention of complication, not stated as uncontrolled 05/29/2009 Edema 08/02/2014 DIABETES TYPE II W NEURO MANIFESTATIONS 09/30/2013 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 Ulcer of other part of foot 12/06 Essential hypertension, benign 1 04/22/2016 Thrombocytopenia, unspecified Bilateral lower extremity edema 02/17/2020 documented as of this encounter (statuses as of 07/27/2021) [facility]2019 History of Past illness Narrative* Problem Noted Date Resolved Date Chronic diastolic CHF (congestive heart failure) 06/19/2018 02/17/2020 Acute pain of right shoulder 11/24/2017 Left knee pain 01/07/2017 12/21/2019 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, with long-term current use of insulin 03/02/2016 08/27/2016 Chronic low back pain 09/29/2014 08/11/2015 Decubitus ulcer of sacral region, stage 2 201406/19/2018 Peripheral neuropathy 06/23/2014 06/21/2020 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 10/21/2013 06/19/2018 CKD (chronic kidney disease) stage 4, GFR 15-29 ml/min 10/21/2013 05/30/2014 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, not stated as uncontrolled(250.51) 09/30/2013 Type II 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, not stated as uncontrolled(250.60) 09/30/2013 01/06/2014 CKD stage G4/A1, GFR 15 - 29 and albumin creatinine ratio <30 mg/g 08/30/2013 05/30/2014 Abnormal gait 03/23/2012 06/21/2020 CRI (chronic renal insufficiency) 11/04/2010 02/20/2017 CRF (chronic renal failure) 07/02/201010/07 Osteoarthritis of knee 09/07/2009 7 Brachial neuritis or radiculitis NOS 04/13/2009 06/21/2020 Ulcer of heel and midfoot 10/08/20072018 ECZEMATOUS DERMATITIS NOS 06/04/20062020 STASIS DERMATITIS///LEG VARICOSITY W INFLAM 12/0602/17/2020 XEROSIS///SEBACEOUS GLAND DIS NEC 12/19/2005 02/17/2020 Closed fracture of head of radius 07/01/2005 08/20/2005 Type I (juvenile type) diabe [place] mellitus without mention of complication, not stated as uncontrolled 05/29/2009 Edema 08/02/2014 DIABETES TYPE II W NEURO MANIFESTATIONS 09/30/2013 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 Ulcer of other part of foot 12/06 Essential hypertension, benign 1 04/22/2016 Thrombocytopenia, unspecified Bilateral lower extremity edema 02/17/2020 documented as of this encounter (statuses as of 07/31/2021) [facility]2019 History of Past illness Narrative* Problem Noted Date Resolved Date Chronic diastolic CHF (congestive heart failure) 06/19/2018 02/17/2020 Acute pain of right shoulder 11/24/2017 Left knee pain 01/07/2017 12/21/2019 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, with long-term current use of insulin 03/02/2016 08/27/2016 Chronic low back pain 09/29/2014 08/11/2015 Decubitus ulcer of sacral region, stage 2 201406/19/2018 Peripheral neuropathy 06/23/2014 06/21/2020 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 10/21/2013 06/19/2018 CKD (chronic kidney disease) stage 4, GFR 15-29 ml/min 10/21/2013 05/30/2014 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, not stated as uncontrolled(250.51) 09/30/2013 Type II 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, not stated as uncontrolled(250.60) 09/30/2013 01/06/2014 CKD stage G4/A1, GFR 15 - 29 and albumin creatinine ratio <30 mg/g 08/30/2013 05/30/2014 Abnormal gait 03/23/2012 06/21/2020 CRI (chronic renal insufficiency) 11/04/2010 02/20/2017 CRF (chronic renal failure) 07/02/201010/07 Osteoarthritis of knee 09/07/2009 7 Brachial neuritis or radiculitis NOS 04/13/2009 06/21/2020 Ulcer of heel and midfoot 10/08/20072018 ECZEMATOUS DERMATITIS NOS 06/04/20062020 STASIS DERMATITIS///LEG VARICOSITY W INFLAM 12/0602/17/2020 XEROSIS///SEBACEOUS GLAND DIS NEC 12/19/2005 02/17/2020 Closed fracture of head of radius 07/01/2005 08/20/2005 Type I (juvenile type) diabe [place] mellitus without mention of complication, not stated as uncontrolled 05/29/2009 Edema 08/02/2014 DIABETES TYPE II W NEURO MANIFESTATIONS 09/30/2013 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 Ulcer of other part of foot 12/06 Essential hypertension, benign 1 04/22/2016 Thrombocytopenia, unspecified Bilateral lower extremity edema 02/17/2020 documented as of this encounter (statuses as of 07/31/2021) [facility] History of Past illness Narrative* Problem Noted Date Resolved Date Chronic diastolic CHF (congestive heart failure) 06/19/2018 02/17/2020 Acute pain of right shoulder 11/24/2017 Left knee pain 01/07/2017 12/21/2019 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, with long-term current use of insulin 03/02/2016 08/27/2016 Chronic low back pain 09/29/2014 08/11/2015 Decubitus ulcer of sacral region, stage 2 201406/19/2018 Peripheral neuropathy 06/23/2014 06/21/2020 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 10/21/2013 06/19/2018 CKD (chronic kidney disease) stage 4, GFR 15-29 ml/min 10/21/2013 05/30/2014 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, not stated as uncontrolled(250.51) 09/30/2013 Type II 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, not stated as uncontrolled(250.60) 09/30/2013 01/06/2014 CKD stage G4/A1, GFR 15 - 29 and albumin creatinine ratio <30 mg/g 08/30/2013 05/30/2014 Abnormal gait 03/23/2012 06/21/2020 CRI (chronic renal insufficiency) 11/04/2010 02/20/2017 CRF (chronic renal failure) 07/02/201010/07 Osteoarthritis of knee 09/07/2009 7 Brachial neuritis or radiculitis NOS 04/13/2009 06/21/2020 Ulcer of heel and midfoot 10/08/20072018 ECZEMATOUS DERMATITIS NOS 06/04/20062020 STASIS DERMATITIS///LEG VARICOSITY W INFLAM 12/0602/17/2020 XEROSIS///SEBACEOUS GLAND DIS NEC 12/19/2005 02/17/2020 Closed fracture of head of radius 07/01/2005 08/20/2005 Type I (juvenile type) diabe [place] mellitus without mention of complication, not stated as uncontrolled 05/29/2009 Edema 08/02/2014 DIABETES TYPE II W NEURO MANIFESTATIONS 09/30/2013 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 Ulcer of other part of foot 12/06 Essential hypertension, benign 1 04/22/2016 Thrombocytopenia, unspecified Bilateral lower extremity edema 02/17/2020 documented as of this encounter (statuses as of 08/03/2021) [facility] History of Past illness Narrative* Problem Noted Date Resolved Date Chronic diastolic CHF (congestive heart failure) 06/19/2018 02/17/2020 Acute pain of right shoulder 11/24/2017 Left knee pain 01/07/2017 12/21/2019 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, with long-term current use of insulin 03/02/2016 08/27/2016 Chronic low back pain 09/29/2014 08/11/2015 Decubitus ulcer of sacral region, stage 2 201406/19/2018 Peripheral neuropathy 06/23/2014 06/21/2020 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 10/21/2013 06/19/2018 CKD (chronic kidney disease) stage 4, GFR 15-29 ml/min 10/21/2013 05/30/2014 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, not stated as uncontrolled(250.51) 09/30/2013 Type II 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, not stated as uncontrolled(250.60) 09/30/2013 01/06/2014 CKD stage G4/A1, GFR 15 - 29 and albumin creatinine ratio <30 mg/g 08/30/2013 05/30/2014 Abnormal gait 03/23/2012 06/21/2020 CRI (chronic renal insufficiency) 11/04/2010 02/20/2017 CRF (chronic renal failure) 07/02/201010/07 Osteoarthritis of knee 09/07/2009 7 Brachial neuritis or radiculitis NOS 04/13/2009 06/21/2020 Ulcer of heel and midfoot 10/08/20072018 ECZEMATOUS DERMATITIS NOS 06/04/20062020 STASIS DERMATITIS///LEG VARICOSITY W INFLAM 12/0602/17/2020 XEROSIS///SEBACEOUS GLAND DIS NEC 12/19/2005 02/17/2020 Closed fracture of head of radius 07/01/2005 08/20/2005 Type I (juvenile type) diabe [place] mellitus without mention of complication, not stated as uncontrolled 05/29/2009 Edema 08/02/2014 DIABETES TYPE II W NEURO MANIFESTATIONS 09/30/2013 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 Ulcer of other part of foot 12/06 Essential hypertension, benign 1 04/22/2016 Thrombocytopenia, unspecified Bilateral lower extremity edema 02/17/2020 documented as of this encounter (statuses as of 08/10/2021) [facility] History of Past illness Narrative* Problem Noted Date Resolved Date Chronic diastolic CHF (congestive heart failure) 06/19/2018 02/17/2020 Acute pain of right shoulder 11/24/2017 Left knee pain 01/07/2017 12/21/2019 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, with long-term current use of insulin 03/02/2016 08/27/2016 Chronic low back pain 09/29/2014 08/11/2015 Decubitus ulcer of sacral region, stage 2 201406/19/2018 Peripheral neuropathy 06/23/2014 06/21/2020 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 10/21/2013 06/19/2018 CKD (chronic kidney disease) stage 4, GFR 15-29 ml/min 10/21/2013 05/30/2014 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, not stated as uncontrolled(250.51) 09/30/2013 Type II 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, not stated as uncontrolled(250.60) 09/30/2013 01/06/2014 CKD stage G4/A1, GFR 15 - 29 and albumin creatinine ratio <30 mg/g 08/30/2013 05/30/2014 Abnormal gait 03/23/2012 06/21/2020 CRI (chronic renal insufficiency) 11/04/2010 02/20/2017 CRF (chronic renal failure) 07/02/201010/07 Osteoarthritis of knee 09/07/2009 7 Brachial neuritis or radiculitis NOS 04/13/2009 06/21/2020 Ulcer of heel and midfoot 10/08/20072018 ECZEMATOUS DERMATITIS NOS 06/04/20062020 STASIS DERMATITIS///LEG VARICOSITY W INFLAM 12/0602/17/2020 XEROSIS///SEBACEOUS GLAND DIS NEC 12/19/2005 02/17/2020 Closed fracture of head of radius 07/01/2005 08/20/2005 Type I (juvenile type) diabe [place] mellitus without mention of complication, not stated as uncontrolled 05/29/2009 Edema 08/02/2014 DIABETES TYPE II W NEURO MANIFESTATIONS 09/30/2013 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 Ulcer of other part of foot 12/06 Essential hypertension, benign 1 04/22/2016 Thrombocytopenia, unspecified Bilateral lower extremity edema 02/17/2020 documented as of this encounter (statuses as of 08/30/2021) [facility] History of Past illness Narrative* Problem Noted Date Resolved Date Chronic diastolic CHF (congestive heart failure) 06/19/2018 02/17/2020 Acute pain of right shoulder 11/24/2017 Left knee pain 01/07/2017 12/21/2019 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, with long-term current use of insulin 03/02/2016 08/27/2016 Chronic low back pain 09/29/2014 08/11/2015 Decubitus ulcer of sacral region, stage 2 201406/19/2018 Peripheral neuropathy 06/23/2014 06/21/2020 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 10/21/2013 06/19/2018 CKD (chronic kidney disease) stage 4, GFR 15-29 ml/min 10/21/2013 05/30/2014 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, not stated as uncontrolled(250.51) 09/30/2013 Type II 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, not stated as uncontrolled(250.60) 09/30/2013 01/06/2014 CKD stage G4/A1, GFR 15 - 29 and albumin creatinine ratio <30 mg/g 08/30/2013 05/30/2014 Abnormal gait 03/23/2012 06/21/2020 CRI (chronic renal insufficiency) 11/04/2010 02/20/2017 CRF (chronic renal failure) 07/02/201010/07 Osteoarthritis of knee 09/07/2009 7 Brachial neuritis or radiculitis NOS 04/13/2009 06/21/2020 Ulcer of heel and midfoot 10/08/20072018 ECZEMATOUS DERMATITIS NOS 06/04/20062020 STASIS DERMATITIS///LEG VARICOSITY W INFLAM 12/0602/17/2020 XEROSIS///SEBACEOUS GLAND DIS NEC 12/19/2005 02/17/2020 Closed fracture of head of radius 07/01/2005 08/20/2005 Type I (juvenile type) diabe [place] mellitus without mention of complication, not stated as uncontrolled 05/29/2009 Edema 08/02/2014 DIABETES TYPE II W NEURO MANIFESTATIONS 09/30/2013 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 Ulcer of other part of foot 12/06 Essential hypertension, benign 1 04/22/2016 Thrombocytopenia, unspecified Bilateral lower extremity edema 02/17/2020 documented as of this encounter (statuses as of 09/19/2021) [facility] History of Past illness Narrative* Problem Noted Date Resolved Date Chronic diastolic CHF (congestive heart failure) 06/19/2018 02/17/2020 Acute pain of right shoulder 11/24/2017 Left knee pain 01/07/2017 12/21/2019 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, with long-term current use of insulin 03/02/2016 08/27/2016 Chronic low back pain 09/29/2014 08/11/2015 Decubitus ulcer of sacral region, stage 2 201406/19/2018 Peripheral neuropathy 06/23/2014 06/21/2020 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 10/21/2013 06/19/2018 CKD (chronic kidney disease) stage 4, GFR 15-29 ml/min 10/21/2013 05/30/2014 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, not stated as uncontrolled(250.51) 09/30/2013 Type II 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, not stated as uncontrolled(250.60) 09/30/2013 01/06/2014 CKD stage G4/A1, GFR 15 - 29 and albumin creatinine ratio <30 mg/g 08/30/2013 05/30/2014 Abnormal gait 03/23/2012 06/21/2020 CRI (chronic renal insufficiency) 11/04/2010 02/20/2017 CRF (chronic renal failure) 07/02/201010/07 Osteoarthritis of knee 09/07/2009 7 Brachial neuritis or radiculitis NOS 04/13/2009 06/21/2020 Ulcer of heel and midfoot 10/08/20072018 ECZEMATOUS DERMATITIS NOS 06/04/20062020 STASIS DERMATITIS///LEG VARICOSITY W INFLAM 12/0602/17/2020 XEROSIS///SEBACEOUS GLAND DIS NEC 12/19/2005 02/17/2020 Closed fracture of head of radius 07/01/2005 08/20/2005 Type I (juvenile type) diabe [place] mellitus without mention of complication, not stated as uncontrolled 05/29/2009 Edema 08/02/2014 DIABETES TYPE II W NEURO MANIFESTATIONS 09/30/2013 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 Ulcer of other part of foot 12/06 Essential hypertension, benign 1 04/22/2016 Thrombocytopenia, unspecified Bilateral lower extremity edema 02/17/2020 documented as of this encounter (statuses as of 09/19/2021) [facility]2019 History of Past illness Narrative* Problem Noted Date Resolved Date Chronic diastolic CHF (congestive heart failure) 06/19/2018 02/17/2020 Acute pain of right shoulder 11/24/2017 Left knee pain 01/07/2017 12/21/2019 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, with long-term current use of insulin 03/02/2016 08/27/2016 Chronic low back pain 09/29/2014 08/11/2015 Decubitus ulcer of sacral region, stage 2 201406/19/2018 Peripheral neuropathy 06/23/2014 06/21/2020 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 10/21/2013 06/19/2018 CKD (chronic kidney disease) stage 4, GFR 15-29 ml/min 10/21/2013 05/30/2014 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, not stated as uncontrolled(250.51) 09/30/2013 Type II 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, not stated as uncontrolled(250.60) 09/30/2013 01/06/2014 CKD stage G4/A1, GFR 15 - 29 and albumin creatinine ratio <30 mg/g 08/30/2013 05/30/2014 Abnormal gait 03/23/2012 06/21/2020 CRI (chronic renal insufficiency) 11/04/2010 02/20/2017 CRF (chronic renal failure) 07/02/201010/07 Osteoarthritis of knee 09/07/2009 7 Brachial neuritis or radiculitis NOS 04/13/2009 06/21/2020 Ulcer of heel and midfoot 10/08/20072018 ECZEMATOUS DERMATITIS NOS 06/04/20062020 STASIS DERMATITIS///LEG VARICOSITY W INFLAM 12/0602/17/2020 XEROSIS///SEBACEOUS GLAND DIS NEC 12/19/2005 02/17/2020 Closed fracture of head of radius 07/01/2005 08/20/2005 Type I (juvenile type) diabe [place] mellitus without mention of complication, not stated as uncontrolled 05/29/2009 Edema 08/02/2014 DIABETES TYPE II W NEURO MANIFESTATIONS 09/30/2013 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 Ulcer of other part of foot 12/06 Essential hypertension, benign 1 04/22/2016 Thrombocytopenia, unspecified Bilateral lower extremity edema 02/17/2020 documented as of this encounter (statuses as of 09/28/2021) [facility]2019 History of Past illness Narrative* Problem Noted Date Resolved Date Chronic diastolic CHF (congestive heart failure) 06/19/2018 02/17/2020 Acute pain of right shoulder 11/24/2017 Left knee pain 01/07/2017 12/21/2019 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, with long-term current use of insulin 03/02/2016 08/27/2016 Chronic low back pain 09/29/2014 08/11/2015 Decubitus ulcer of sacral region, stage 2 201406/19/2018 Peripheral neuropathy 06/23/2014 06/21/2020 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 10/21/2013 06/19/2018 CKD (chronic kidney disease) stage 4, GFR 15-29 ml/min 10/21/2013 05/30/2014 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, not stated as uncontrolled(250.51) 09/30/2013 Type II 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, not stated as uncontrolled(250.60) 09/30/2013 01/06/2014 CKD stage G4/A1, GFR 15 - 29 and albumin creatinine ratio <30 mg/g 08/30/2013 05/30/2014 Abnormal gait 03/23/2012 06/21/2020 CRI (chronic renal insufficiency) 11/04/2010 02/20/2017 CRF (chronic renal failure) 07/02/201010/07 Osteoarthritis of knee 09/07/2009 7 Brachial neuritis or radiculitis NOS 04/13/2009 06/21/2020 Ulcer of heel and midfoot 10/08/20072018 ECZEMATOUS DERMATITIS NOS 06/04/20062020 STASIS DERMATITIS///LEG VARICOSITY W INFLAM 12/0602/17/2020 XEROSIS///SEBACEOUS GLAND DIS NEC 12/19/2005 02/17/2020 Closed fracture of head of radius 07/01/2005 08/20/2005 Type I (juvenile type) diabe [place] mellitus without mention of complication, not stated as uncontrolled 05/29/2009 Edema 08/02/2014 DIABETES TYPE II W NEURO MANIFESTATIONS 09/30/2013 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 Ulcer of other part of foot 12/06 Essential hypertension, benign 1 04/22/2016 Thrombocytopenia, unspecified Bilateral lower extremity edema 02/17/2020 documented as of this encounter (statuses as of 10/02/2021) [facility]2019 History of Past illness Narrative* Problem Noted Date Resolved Date Chronic diastolic CHF (congestive heart failure) 06/19/2018 02/17/2020 Acute pain of right shoulder 11/24/2017 Left knee pain 01/07/2017 12/21/2019 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, with long-term current use of insulin 03/02/2016 08/27/2016 Chronic low back pain 09/29/2014 08/11/2015 Decubitus ulcer of sacral region, stage 2 201406/19/2018 Peripheral neuropathy 06/23/2014 06/21/2020 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 10/21/2013 06/19/2018 CKD (chronic kidney disease) stage 4, GFR 15-29 ml/min 10/21/2013 05/30/2014 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, not stated as uncontrolled(250.51) 09/30/2013 Type II 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, not stated as uncontrolled(250.60) 09/30/2013 01/06/2014 CKD stage G4/A1, GFR 15 - 29 and albumin creatinine ratio <30 mg/g 08/30/2013 05/30/2014 Abnormal gait 03/23/2012 06/21/2020 CRI (chronic renal insufficiency) 11/04/2010 02/20/2017 CRF (chronic renal failure) 07/02/2010 07/04/2010 Osteoarthritis of knee 09/07/2009 7 Brachial neuritis or radiculitis NOS 04/13/2009 06/21/2020 Ulcer of heel and midfoot 10/08/20072018 ECZEMATOUS DERMATITIS NOS 06/04/20062020 STASIS DERMATITIS///LEG VARICOSITY W INFLAM 12/0602/17/2020 XEROSIS///SEBACEOUS GLAND DIS NEC 12/19/2005 02/17/2020 Closed fracture of head of radius 07/01/2005 08/20/2005 Type I (juvenile type) diabe [place] mellitus without mention of complication, not stated as uncontrolled 05/29/2009 Edema 08/02/2014 DIABETES TYPE II W NEURO MANIFESTATIONS 09/30/2013 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 Ulcer of other part of foot 12/06 Essential hypertension, benign 1 04/22/2016 Thrombocytopenia, unspecified Bilateral lower extremity edema 02/17/2020 documented as of this encounter (statuses as of 10/03/2021) [facility] History of Past illness Narrative* Problem Noted Date Resolved Date Chronic diastolic CHF (congestive heart failure) 06/19/2018 02/17/2020 Acute pain of right shoulder 11/24/2017 Left knee pain 01/07/2017 12/21/2019 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, with long-term current use of insulin 03/02/2016 08/27/2016 Chronic low back pain 09/29/2014 08/11/2015 Decubitus ulcer of sacral region, stage 2 201406/19/2018 Peripheral neuropathy 06/23/2014 06/21/2020 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 10/21/2013 06/19/2018 CKD (chronic kidney disease) stage 4, GFR 15-29 ml/min 10/21/2013 05/30/2014 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, not stated as uncontrolled(250.51) 09/30/2013 Type II 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, not stated as uncontrolled(250.60) 09/30/2013 01/06/2014 CKD stage G4/A1, GFR 15 - 29 and albumin creatinine ratio <30 mg/g 08/30/2013 05/30/2014 Abnormal gait 03/23/2012 06/21/2020 CRI (chronic renal insufficiency) 11/04/2010 02/20/2017 CRF (chronic renal failure) 07/02/201010/07 Osteoarthritis of knee 09/07/2009 7 Brachial neuritis or radiculitis NOS 04/13/2009 06/21/2020 Ulcer of heel and midfoot 10/08/20072018 ECZEMATOUS DERMATITIS NOS 06/04/20062020 STASIS DERMATITIS///LEG VARICOSITY W INFLAM 12/0602/17/2020 XEROSIS///SEBACEOUS GLAND DIS NEC 12/19/2005 02/17/2020 Closed fracture of head of radius 07/01/2005 08/20/2005 Type I (juvenile type) diabe [place] mellitus without mention of complication, not stated as uncontrolled 05/29/2009 Edema 08/02/2014 DIABETES TYPE II W NEURO MANIFESTATIONS 09/30/2013 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 Ulcer of other part of foot 12/06 Essential hypertension, benign 1 04/22/2016 Thrombocytopenia, unspecified Bilateral lower extremity edema 02/17/2020 documented as of this encounter (statuses as of 10/26/2021) [facility]2019 History of Past illness Narrative* Problem Noted Date Resolved Date Chronic diastolic CHF (congestive heart failure) 06/19/2018 02/17/2020 Acute pain of right shoulder 11/24/2017 Left knee pain 01/07/2017 12/21/2019 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, with long-term current use of insulin 03/02/2016 08/27/2016 Chronic low back pain 09/29/2014 08/11/2015 Decubitus ulcer of sacral region, stage 2 201406/19/2018 Peripheral neuropathy 06/23/2014 06/21/2020 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 10/21/2013 06/19/2018 CKD (chronic kidney disease) stage 4, GFR 15-29 ml/min 10/21/2013 05/30/2014 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, not stated as uncontrolled(250.51) 09/30/2013 Type II 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, not stated as uncontrolled(250.60) 09/30/2013 01/06/2014 CKD stage G4/A1, GFR 15 - 29 and albumin creatinine ratio <30 mg/g 08/30/2013 05/30/2014 Abnormal gait 03/23/2012 06/21/2020 CRI (chronic renal insufficiency) 11/04/2010 02/20/2017 CRF (chronic renal failure) 07/02/201010/07 Osteoarthritis of knee 09/07/2009 7 Brachial neuritis or radiculitis NOS 04/13/2009 06/21/2020 Ulcer of heel and midfoot 10/08/20072018 ECZEMATOUS DERMATITIS NOS 06/04/20062020 STASIS DERMATITIS///LEG VARICOSITY W INFLAM 12/0602/17/2020 XEROSIS///SEBACEOUS GLAND DIS NEC 12/19/2005 02/17/2020 Closed fracture of head of radius 07/01/2005 08/20/2005 Type I (juvenile type) diabe [place] mellitus without mention of complication, not stated as uncontrolled 05/29/2009 Edema 08/02/2014 DIABETES TYPE II W NEURO MANIFESTATIONS 09/30/2013 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 Ulcer of other part of foot 12/06 Essential hypertension, benign 1 04/22/2016 Thrombocytopenia, unspecified Bilateral lower extremity edema 02/17/2020 documented as of this encounter (statuses as of 10/31/2021) [facility]2019 History of Past illness Narrative* Problem Noted Date Resolved Date Chronic diastolic CHF (congestive heart failure) 06/19/2018 02/17/2020 Acute pain of right shoulder 11/24/2017 Left knee pain 01/07/2017 12/21/2019 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, with long-term current use of insulin 03/02/2016 08/27/2016 Chronic low back pain 09/29/2014 08/11/2015 Decubitus ulcer of sacral region, stage 2 201406/19/2018 Peripheral neuropathy 06/23/2014 06/21/2020 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 10/21/2013 06/19/2018 CKD (chronic kidney disease) stage 4, GFR 15-29 ml/min 10/21/2013 05/30/2014 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, not stated as uncontrolled(250.51) 09/30/2013 Type II 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, not stated as uncontrolled(250.60) 09/30/2013 01/06/2014 CKD stage G4/A1, GFR 15 - 29 and albumin creatinine ratio <30 mg/g 08/30/2013 05/30/2014 Abnormal gait 03/23/2012 06/21/2020 CRI (chronic renal insufficiency) 11/04/2010 02/20/2017 CRF (chronic renal failure) 07/02/201010/07 Osteoarthritis of knee 09/07/2009 7 Brachial neuritis or radiculitis NOS 04/13/2009 06/21/2020 Ulcer of heel and midfoot 10/08/20072018 ECZEMATOUS DERMATITIS NOS 06/04/20062020 STASIS DERMATITIS///LEG VARICOSITY W INFLAM 12/0602/17/2020 XEROSIS///SEBACEOUS GLAND DIS NEC 12/19/2005 02/17/2020 Closed fracture of head of radius 07/01/2005 08/20/2005 Type I (juvenile type) diabe [place] mellitus without mention of complication, not stated as uncontrolled 05/29/2009 Edema 08/02/2014 DIABETES TYPE II W NEURO MANIFESTATIONS 09/30/2013 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 Ulcer of other part of foot 12/06 Essential hypertension, benign 1 04/22/2016 Thrombocytopenia, unspecified Bilateral lower extremity edema 02/17/2020 documented as of this encounter (statuses as of 11/02/2021) [facility]2019 History of Past illness Narrative* Problem Noted Date Resolved Date Chronic diastolic CHF (congestive heart failure) 06/19/2018 02/17/2020 Acute pain of right shoulder 11/24/2017 Left knee pain 01/07/2017 12/21/2019 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, with long-term current use of insulin 03/02/2016 08/27/2016 Chronic low back pain 09/29/2014 08/11/2015 Decubitus ulcer of sacral region, stage 2 201406/19/2018 Peripheral neuropathy 06/23/2014 06/21/2020 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 10/21/2013 06/19/2018 CKD (chronic kidney disease) stage 4, GFR 15-29 ml/min 10/21/2013 05/30/2014 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, not stated as uncontrolled(250.51) 09/30/2013 Type II 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, not stated as uncontrolled(250.60) 09/30/2013 01/06/2014 CKD stage G4/A1, GFR 15 - 29 and albumin creatinine ratio <30 mg/g 08/30/2013 05/30/2014 Abnormal gait 03/23/2012 06/21/2020 CRI (chronic renal insufficiency) 11/04/2010 02/20/2017 CRF (chronic renal failure) 07/02/201010/07 Osteoarthritis of knee 09/07/2009 7 Brachial neuritis or radiculitis NOS 04/13/2009 06/21/2020 Ulcer of heel and midfoot 10/08/20072018 ECZEMATOUS DERMATITIS NOS 06/04/20062020 STASIS DERMATITIS///LEG VARICOSITY W INFLAM 12/0602/17/2020 XEROSIS///SEBACEOUS GLAND DIS NEC 12/19/2005 02/17/2020 Closed fracture of head of radius 07/01/2005 08/20/2005 Type I (juvenile type) diabe [place] mellitus without mention of complication, not stated as uncontrolled 05/29/2009 Edema 08/02/2014 DIABETES TYPE II W NEURO MANIFESTATIONS 09/30/2013 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 Ulcer of other part of foot 12/06 Essential hypertension, benign 1 04/22/2016 Thrombocytopenia, unspecified Bilateral lower extremity edema 02/17/2020 documented as of this encounter (statuses as of 11/19/2021) [facility] History of Past illness Narrative* Problem Noted Date Resolved Date Chronic diastolic CHF (congestive heart failure) 06/19/2018 02/17/2020 Acute pain of right shoulder 11/24/2017 Left knee pain 01/07/2017 12/21/2019 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, with long-term current use of insulin 03/02/2016 08/27/2016 Chronic low back pain 09/29/2014 08/11/2015 Decubitus ulcer of sacral region, stage 2 201406/19/2018 Peripheral neuropathy 06/23/2014 06/21/2020 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 10/21/2013 06/19/2018 CKD (chronic kidney disease) stage 4, GFR 15-29 ml/min 10/21/2013 05/30/2014 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, not stated as uncontrolled(250.51) 09/30/2013 Type II 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, not stated as uncontrolled(250.60) 09/30/2013 01/06/2014 CKD stage G4/A1, GFR 15 - 29 and albumin creatinine ratio <30 mg/g 08/30/2013 05/30/2014 Abnormal gait 03/23/2012 06/21/2020 CRI (chronic renal insufficiency) 11/04/2010 02/20/2017 CRF (chronic renal failure) 07/02/201010/07 Osteoarthritis of knee 09/07/2009 7 Brachial neuritis or radiculitis NOS 04/13/2009 06/21/2020 Ulcer of heel and midfoot 10/08/20072018 ECZEMATOUS DERMATITIS NOS 06/04/20062020 STASIS DERMATITIS///LEG VARICOSITY W INFLAM 12/0602/17/2020 XEROSIS///SEBACEOUS GLAND DIS NEC 12/19/2005 02/17/2020 Closed fracture of head of radius 07/01/2005 08/20/2005 Type I (juvenile type) diabe [place] mellitus without mention of complication, not stated as uncontrolled 05/29/2009 Edema 08/02/2014 DIABETES TYPE II W NEURO MANIFESTATIONS 09/30/2013 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 Ulcer of other part of foot 12/06 Essential hypertension, benign 1 04/22/2016 Thrombocytopenia, unspecified Bilateral lower extremity edema 02/17/2020 documented as of this encounter (statuses as of 11/22/2021) [facility] History of Past illness Narrative* Problem Noted Date Resolved Date Chronic diastolic CHF (congestive heart failure) 06/19/2018 02/17/2020 Acute pain of right shoulder 11/24/2017 Left knee pain 01/07/2017 12/21/2019 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, with long-term current use of insulin 03/02/2016 08/27/2016 Chronic low back pain 09/29/2014 08/11/2015 Decubitus ulcer of sacral region, stage 2 201406/19/2018 Peripheral neuropathy 06/23/2014 06/21/2020 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 10/21/2013 06/19/2018 CKD (chronic kidney disease) stage 4, GFR 15-29 ml/min 10/21/2013 05/30/2014 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, not stated as uncontrolled(250.51) 09/30/2013 Type II 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, not stated as uncontrolled(250.60) 09/30/2013 01/06/2014 CKD stage G4/A1, GFR 15 - 29 and albumin creatinine ratio <30 mg/g 08/30/2013 05/30/2014 Abnormal gait 03/23/2012 06/21/2020 CRI (chronic renal insufficiency) 11/04/2010 02/20/2017 CRF (chronic renal failure) 07/02/201010/07 Osteoarthritis of knee 09/07/2009 7 Brachial neuritis or radiculitis NOS 04/13/2009 06/21/2020 Ulcer of heel and midfoot 10/08/20072018 ECZEMATOUS DERMATITIS NOS 06/04/20062020 STASIS DERMATITIS///LEG VARICOSITY W INFLAM 12/0602/17/2020 XEROSIS///SEBACEOUS GLAND DIS NEC 12/19/2005 02/17/2020 Closed fracture of head of radius 07/01/2005 08/20/2005 Type I (juvenile type) diabe [place] mellitus without mention of complication, not stated as uncontrolled 05/29/2009 Edema 08/02/2014 DIABETES TYPE II W NEURO MANIFESTATIONS 09/30/2013 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 Ulcer of other part of foot 12/06 Essential hypertension, benign 1 04/22/2016 Thrombocytopenia, unspecified Bilateral lower extremity edema 02/17/2020 documented as of this encounter (statuses as of 11/28/2021) [facility] History of Past illness Narrative* Problem Noted Date Resolved Date Chronic diastolic CHF (congestive heart failure) 06/19/2018 02/17/2020 Acute pain of right shoulder 11/24/2017 Left knee pain 01/07/2017 12/21/2019 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, with long-term current use of insulin 03/02/2016 08/27/2016 Chronic low back pain 09/29/2014 08/11/2015 Decubitus ulcer of sacral region, stage 2 201406/19/2018 Peripheral neuropathy 06/23/2014 06/21/2020 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 10/21/2013 06/19/2018 CKD (chronic kidney disease) stage 4, GFR 15-29 ml/min 10/21/2013 05/30/2014 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, not stated as uncontrolled(250.51) 09/30/2013 Type II 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, not stated as uncontrolled(250.60) 09/30/2013 01/06/2014 CKD stage G4/A1, GFR 15 - 29 and albumin creatinine ratio <30 mg/g 08/30/2013 05/30/2014 Abnormal gait 03/23/2012 06/21/2020 CRI (chronic renal insufficiency) 11/04/2010 02/20/2017 CRF (chronic renal failure) 07/02/2010 07/04/2010 Osteoarthritis of knee 09/07/2009 7 Brachial neuritis or radiculitis NOS 04/13/2009 06/21/2020 Ulcer of heel and midfoot 10/08/20072018 ECZEMATOUS DERMATITIS NOS 06/04/20062020 STASIS DERMATITIS///LEG VARICOSITY W INFLAM 12/0602/17/2020 XEROSIS///SEBACEOUS GLAND DIS NEC 12/19/2005 02/17/2020 Closed fracture of head of radius 07/01/2005 08/20/2005 Type I (juvenile type) diabe [place] mellitus without mention of complication, not stated as uncontrolled 05/29/2009 Edema 08/02/2014 DIABETES TYPE II W NEURO MANIFESTATIONS 09/30/2013 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 Ulcer of other part of foot 12/06 Essential hypertension, benign 1 04/22/2016 Thrombocytopenia, unspecified Bilateral lower extremity edema 02/17/2020 documented as of this encounter (statuses as of 12/03/2021) [facility] History of Past illness Narrative* Problem Noted Date Resolved Date Chronic diastolic CHF (congestive heart failure) 06/19/2018 02/17/2020 Acute pain of right shoulder 11/24/2017 Left knee pain 01/07/2017 12/21/2019 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, with long-term current use of insulin 03/02/2016 08/27/2016 Chronic low back pain 09/29/2014 08/11/2015 Decubitus ulcer of sacral region, stage 2 201406/19/2018 Peripheral neuropathy 06/23/2014 06/21/2020 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 10/21/2013 06/19/2018 CKD (chronic kidney disease) stage 4, GFR 15-29 ml/min 10/21/2013 05/30/2014 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, not stated as uncontrolled(250.51) 09/30/2013 Type II 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, not stated as uncontrolled(250.60) 09/30/2013 01/06/2014 CKD stage G4/A1, GFR 15 - 29 and albumin creatinine ratio <30 mg/g 08/30/2013 05/30/2014 Abnormal gait 03/23/2012 06/21/2020 CRI (chronic renal insufficiency) 11/04/2010 02/20/2017 CRF (chronic renal failure) 07/02/2010 07/04/2010 Osteoarthritis of knee 09/07/2009 7 Brachial neuritis or radiculitis NOS 04/13/2009 06/21/2020 Ulcer of heel and midfoot 10/08/20072018 ECZEMATOUS DERMATITIS NOS 06/04/20062020 STASIS DERMATITIS///LEG VARICOSITY W INFLAM 12/0602/17/2020 XEROSIS///SEBACEOUS GLAND DIS NEC 12/19/2005 02/17/2020 Closed fracture of head of radius 07/01/2005 08/20/2005 Type I (juvenile type) diabe [place] mellitus without mention of complication, not stated as uncontrolled 05/29/2009 Edema 08/02/2014 DIABETES TYPE II W NEURO MANIFESTATIONS 09/30/2013 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 Ulcer of other part of foot 12/06 Essential hypertension, benign 1 04/22/2016 Thrombocytopenia, unspecified Bilateral lower extremity edema 02/17/2020 documented as of this encounter (statuses as of 12/07/2021) [facility] History of Past illness Narrative* Problem Noted Date Resolved Date Chronic diastolic CHF (congestive heart failure) 06/19/2018 02/17/2020 Acute pain of right shoulder 11/24/2017 Left knee pain 01/07/2017 12/21/2019 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, with long-term current use of insulin 03/02/2016 08/27/2016 Chronic low back pain 09/29/2014 08/11/2015 Decubitus ulcer of sacral region, stage 2 201406/19/2018 Peripheral neuropathy 06/23/2014 06/21/2020 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 10/21/2013 06/19/2018 CKD (chronic kidney disease) stage 4, GFR 15-29 ml/min 10/21/2013 05/30/2014 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, not stated as uncontrolled(250.51) 09/30/2013 Type II 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, not stated as uncontrolled(250.60) 09/30/2013 01/06/2014 CKD stage G4/A1, GFR 15 - 29 and albumin creatinine ratio <30 mg/g 08/30/2013 05/30/2014 Abnormal gait 03/23/2012 06/21/2020 CRI (chronic renal insufficiency) 11/04/2010 02/20/2017 CRF (chronic renal failure) 07/02/201010/07 Osteoarthritis of knee 09/07/2009 7 Brachial neuritis or radiculitis NOS 04/13/2009 06/21/2020 Ulcer of heel and midfoot 10/08/20072018 ECZEMATOUS DERMATITIS NOS 06/04/20062020 STASIS DERMATITIS///LEG VARICOSITY W INFLAM 12/0602/17/2020 XEROSIS///SEBACEOUS GLAND DIS NEC 12/19/2005 02/17/2020 Closed fracture of head of radius 07/01/2005 08/20/2005 Type I (juvenile type) diabe [place] mellitus without mention of complication, not stated as uncontrolled 05/29/2009 Edema 08/02/2014 DIABETES TYPE II W NEURO MANIFESTATIONS 09/30/2013 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 Ulcer of other part of foot 12/06 Essential hypertension, benign 1 04/22/2016 Thrombocytopenia, unspecified Bilateral lower extremity edema 02/17/2020 documented as of this encounter (statuses as of 01/07/2022) [facility]2019 History of Past illness Narrative* Problem Noted Date Resolved Date Chronic diastolic CHF (congestive heart failure) 06/19/2018 02/17/2020 Acute pain of right shoulder 11/24/2017 Left knee pain 01/07/2017 12/21/2019 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, with long-term current use of insulin 03/02/2016 08/27/2016 Chronic low back pain 09/29/2014 08/11/2015 Decubitus ulcer of sacral region, stage 2 201406/19/2018 Peripheral neuropathy 06/23/2014 06/21/2020 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 10/21/2013 06/19/2018 CKD (chronic kidney disease) stage 4, GFR 15-29 ml/min 10/21/2013 05/30/2014 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, not stated as uncontrolled(250.51) 09/30/2013 Type II 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, not stated as uncontrolled(250.60) 09/30/2013 01/06/2014 CKD stage G4/A1, GFR 15 - 29 and albumin creatinine ratio <30 mg/g 08/30/2013 05/30/2014 Abnormal gait 03/23/2012 06/21/2020 CRI (chronic renal insufficiency) 11/04/2010 02/20/2017 CRF (chronic renal failure) 07/02/201010/07 Osteoarthritis of knee 09/07/2009 7 Brachial neuritis or radiculitis NOS 04/13/2009 06/21/2020 Ulcer of heel and midfoot 10/08/20072018 ECZEMATOUS DERMATITIS NOS 06/04/20062020 STASIS DERMATITIS///LEG VARICOSITY W INFLAM 12/0602/17/2020 XEROSIS///SEBACEOUS GLAND DIS NEC 12/19/2005 02/17/2020 Closed fracture of head of radius 07/01/2005 08/20/2005 Type I (juvenile type) diabe [place] mellitus without mention of complication, not stated as uncontrolled 05/29/2009 Edema 08/02/2014 DIABETES TYPE II W NEURO MANIFESTATIONS 09/30/2013 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 Ulcer of other part of foot 12/06 Essential hypertension, benign 1 04/22/2016 Thrombocytopenia, unspecified Bilateral lower extremity edema 02/17/2020 documented as of this encounter (statuses as of 01/08/2022) [facility]2019 History of Past illness Narrative* Problem Noted Date Resolved Date Chronic diastolic CHF (congestive heart failure) 06/19/2018 02/17/2020 Acute pain of right shoulder 11/24/2017 Left knee pain 01/07/2017 12/21/2019 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, with long-term current use of insulin 03/02/2016 08/27/2016 Chronic low back pain 09/29/2014 08/11/2015 Decubitus ulcer of sacral region, stage 2 201406/19/2018 Peripheral neuropathy 06/23/2014 06/21/2020 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 10/21/2013 06/19/2018 CKD (chronic kidney disease) stage 4, GFR 15-29 ml/min 10/21/2013 05/30/2014 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, not stated as uncontrolled(250.51) 09/30/2013 Type II 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, not stated as uncontrolled(250.60) 09/30/2013 01/06/2014 CKD stage G4/A1, GFR 15 - 29 and albumin creatinine ratio <30 mg/g 08/30/2013 05/30/2014 Abnormal gait 03/23/2012 06/21/2020 CRI (chronic renal insufficiency) 11/04/2010 02/20/2017 CRF (chronic renal failure) 07/02/201010/07 Osteoarthritis of knee 09/07/2009 7 Brachial neuritis or radiculitis NOS 04/13/2009 06/21/2020 Ulcer of heel and midfoot 10/08/20072018 ECZEMATOUS DERMATITIS NOS 06/04/20062020 STASIS DERMATITIS///LEG VARICOSITY W INFLAM 12/0602/17/2020 XEROSIS///SEBACEOUS GLAND DIS NEC 12/19/2005 02/17/2020 Closed fracture of head of radius 07/01/2005 08/20/2005 Type I (juvenile type) diabe [place] mellitus without mention of complication, not stated as uncontrolled 05/29/2009 Edema 08/02/2014 DIABETES TYPE II W NEURO MANIFESTATIONS 09/30/2013 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 Ulcer of other part of foot 12/06 Essential hypertension, benign 1 04/22/2016 Thrombocytopenia, unspecified Bilateral lower extremity edema 02/17/2020 documented as of this encounter (statuses as of 01/29/2022) [facility]2019 History of Past illness Narrative* Problem Noted Date Resolved Date Chronic diastolic CHF (congestive heart failure) 06/19/2018 02/17/2020 Acute pain of right shoulder 11/24/2017 Left knee pain 01/07/2017 12/21/2019 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, with long-term current use of insulin 03/02/2016 08/27/2016 Chronic low back pain 09/29/2014 08/11/2015 Decubitus ulcer of sacral region, stage 2 201406/19/2018 Peripheral neuropathy 06/23/2014 06/21/2020 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 10/21/2013 06/19/2018 CKD (chronic kidney disease) stage 4, GFR 15-29 ml/min 10/21/2013 05/30/2014 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, not stated as uncontrolled(250.51) 09/30/2013 Type II 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, not stated as uncontrolled(250.60) 09/30/2013 01/06/2014 CKD stage G4/A1, GFR 15 - 29 and albumin creatinine ratio <30 mg/g 08/30/2013 05/30/2014 Abnormal gait 03/23/2012 06/21/2020 CRI (chronic renal insufficiency) 11/04/2010 02/20/2017 CRF (chronic renal failure) 07/02/201010/07 Osteoarthritis of knee 09/07/2009 7 Brachial neuritis or radiculitis NOS 04/13/2009 06/21/2020 Ulcer of heel and midfoot 10/08/20072018 ECZEMATOUS DERMATITIS NOS 06/04/20062020 STASIS DERMATITIS///LEG VARICOSITY W INFLAM 12/0602/17/2020 XEROSIS///SEBACEOUS GLAND DIS NEC 12/19/2005 02/17/2020 Closed fracture of head of radius 07/01/2005 08/20/2005 Type I (juvenile type) diabe [place] mellitus without mention of complication, not stated as uncontrolled 05/29/2009 Edema 08/02/2014 DIABETES TYPE II W NEURO MANIFESTATIONS 09/30/2013 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 Ulcer of other part of foot 12/06 Essential hypertension, benign 1 04/22/2016 Thrombocytopenia, unspecified Bilateral lower extremity edema 02/17/2020 documented as of this encounter (statuses as of 01/29/2022) [facility] History of Past illness Narrative* Problem Noted Date Resolved Date Chronic diastolic CHF (congestive heart failure) 06/19/2018 02/17/2020 Acute pain of right shoulder 11/24/2017 Left knee pain 01/07/2017 12/21/2019 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, with long-term current use of insulin 03/02/2016 08/27/2016 Chronic low back pain 09/29/2014 08/11/2015 Decubitus ulcer of sacral region, stage 2 201406/19/2018 Peripheral neuropathy 06/23/2014 06/21/2020 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 10/21/2013 06/19/2018 CKD (chronic kidney disease) stage 4, GFR 15-29 ml/min 10/21/2013 05/30/2014 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, not stated as uncontrolled(250.51) 09/30/2013 Type II 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, not stated as uncontrolled(250.60) 09/30/2013 01/06/2014 CKD stage G4/A1, GFR 15 - 29 and albumin creatinine ratio <30 mg/g 08/30/2013 05/30/2014 Abnormal gait 03/23/2012 06/21/2020 CRI (chronic renal insufficiency) 11/04/2010 02/20/2017 CRF (chronic renal failure) 07/02/201010/07 Osteoarthritis of knee 09/07/2009 7 Brachial neuritis or radiculitis NOS 04/13/2009 06/21/2020 Ulcer of heel and midfoot 10/08/20072018 ECZEMATOUS DERMATITIS NOS 06/04/20062020 STASIS DERMATITIS///LEG VARICOSITY W INFLAM 12/0602/17/2020 XEROSIS///SEBACEOUS GLAND DIS NEC 12/19/2005 02/17/2020 Closed fracture of head of radius 07/01/2005 08/20/2005 Type I (juvenile type) diabe [place] mellitus without mention of complication, not stated as uncontrolled 05/29/2009 Edema 08/02/2014 DIABETES TYPE II W NEURO MANIFESTATIONS 09/30/2013 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 Ulcer of other part of foot 12/06 Essential hypertension, benign 1 04/22/2016 Thrombocytopenia, unspecified Bilateral lower extremity edema 02/17/2020 documented as of this encounter (statuses as of 01/31/2022) [facility] History of Past illness Narrative* Problem Noted Date Resolved Date Chronic diastolic CHF (congestive heart failure) 06/19/2018 02/17/2020 Acute pain of right shoulder 11/24/2017 Left knee pain 01/07/2017 12/21/2019 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, with long-term current use of insulin 03/02/2016 08/27/2016 Chronic low back pain 09/29/2014 08/11/2015 Decubitus ulcer of sacral region, stage 2 201406/19/2018 Peripheral neuropathy 06/23/2014 06/21/2020 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 10/21/2013 06/19/2018 CKD (chronic kidney disease) stage 4, GFR 15-29 ml/min 10/21/2013 05/30/2014 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, not stated as uncontrolled(250.51) 09/30/2013 Type II 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, not stated as uncontrolled(250.60) 09/30/2013 01/06/2014 CKD stage G4/A1, GFR 15 - 29 and albumin creatinine ratio <30 mg/g 08/30/2013 05/30/2014 Abnormal gait 03/23/2012 06/21/2020 CRI (chronic renal insufficiency) 11/04/2010 02/20/2017 CRF (chronic renal failure) 07/02/201010/07 Osteoarthritis of knee 09/07/2009 7 Brachial neuritis or radiculitis NOS 04/13/2009 06/21/2020 Ulcer of heel and midfoot 10/08/20072018 ECZEMATOUS DERMATITIS NOS 06/04/20062020 STASIS DERMATITIS///LEG VARICOSITY W INFLAM 12/0602/17/2020 XEROSIS///SEBACEOUS GLAND DIS NEC 12/19/2005 02/17/2020 Closed fracture of head of radius 07/01/2005 08/20/2005 Type I (juvenile type) diabe [place] mellitus without mention of complication, not stated as uncontrolled 05/29/2009 Edema 08/02/2014 DIABETES TYPE II W NEURO MANIFESTATIONS 09/30/2013 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 Ulcer of other part of foot 12/06 Essential hypertension, benign 1 04/22/2016 Thrombocytopenia, unspecified Bilateral lower extremity edema 02/17/2020 documented as of this encounter (statuses as of 01/31/2022) [facility]2019 History of Past illness Narrative* Problem Noted Date Resolved Date Chronic diastolic CHF (congestive heart failure) 06/19/2018 02/17/2020 Acute pain of right shoulder 11/24/2017 Left knee pain 01/07/2017 12/21/2019 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, with long-term current use of insulin 03/02/2016 08/27/2016 Chronic low back pain 09/29/2014 08/11/2015 Decubitus ulcer of sacral region, stage 2 201406/19/2018 Peripheral neuropathy 06/23/2014 06/21/2020 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 10/21/2013 06/19/2018 CKD (chronic kidney disease) stage 4, GFR 15-29 ml/min 10/21/2013 05/30/2014 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, not stated as uncontrolled(250.51) 09/30/2013 Type II 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, not stated as uncontrolled(250.60) 09/30/2013 01/06/2014 CKD stage G4/A1, GFR 15 - 29 and albumin creatinine ratio <30 mg/g 08/30/2013 05/30/2014 Abnormal gait 03/23/2012 06/21/2020 CRI (chronic renal insufficiency) 11/04/2010 02/20/2017 CRF (chronic renal failure) 07/02/201010/07 Osteoarthritis of knee 09/07/2009 7 Brachial neuritis or radiculitis NOS 04/13/2009 06/21/2020 Ulcer of heel and midfoot 10/08/20072018 ECZEMATOUS DERMATITIS NOS 06/04/20062020 STASIS DERMATITIS///LEG VARICOSITY W INFLAM 12/0602/17/2020 XEROSIS///SEBACEOUS GLAND DIS NEC 12/19/2005 02/17/2020 Closed fracture of head of radius 07/01/2005 08/20/2005 Type I (juvenile type) diabe [place] mellitus without mention of complication, not stated as uncontrolled 05/29/2009 Edema 08/02/2014 DIABETES TYPE II W NEURO MANIFESTATIONS 09/30/2013 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 Ulcer of other part of foot 12/06 Essential hypertension, benign 1 04/22/2016 Thrombocytopenia, unspecified Bilateral lower extremity edema 02/17/2020 documented as of this encounter (statuses as of 01/31/2022) [facility] History of Past illness Narrative* Problem Noted Date Resolved Date Chronic diastolic CHF (congestive heart failure) 06/19/2018 02/17/2020 Acute pain of right shoulder 11/24/2017 Left knee pain 01/07/2017 12/21/2019 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, with long-term current use of insulin 03/02/2016 08/27/2016 Chronic low back pain 09/29/2014 08/11/2015 Decubitus ulcer of sacral region, stage 2 201406/19/2018 Peripheral neuropathy 06/23/2014 06/21/2020 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 10/21/2013 06/19/2018 CKD (chronic kidney disease) stage 4, GFR 15-29 ml/min 10/21/2013 05/30/2014 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, not stated as uncontrolled(250.51) 09/30/2013 Type II 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, not stated as uncontrolled(250.60) 09/30/2013 01/06/2014 CKD stage G4/A1, GFR 15 - 29 and albumin creatinine ratio <30 mg/g 08/30/2013 05/30/2014 Abnormal gait 03/23/2012 06/21/2020 CRI (chronic renal insufficiency) 11/04/2010 02/20/2017 CRF (chronic renal failure) 07/02/201010/07 Osteoarthritis of knee 09/07/2009 7 Brachial neuritis or radiculitis NOS 04/13/2009 06/21/2020 Ulcer of heel and midfoot 10/08/20072018 ECZEMATOUS DERMATITIS NOS 06/04/20062020 STASIS DERMATITIS///LEG VARICOSITY W INFLAM 12/0602/17/2020 XEROSIS///SEBACEOUS GLAND DIS NEC 12/19/2005 02/17/2020 Closed fracture of head of radius 07/01/2005 08/20/2005 Type I (juvenile type) diabe [place] mellitus without mention of complication, not stated as uncontrolled 05/29/2009 Edema 08/02/2014 DIABETES TYPE II W NEURO MANIFESTATIONS 09/30/2013 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 Ulcer of other part of foot 12/06 Essential hypertension, benign 1 04/22/2016 Thrombocytopenia, unspecified Bilateral lower extremity edema 02/17/2020 documented as of this encounter (statuses as of 02/01/2022) [facility] History of Past illness Narrative* Problem Noted Date Resolved Date Chronic diastolic CHF (congestive heart failure) 06/19/2018 02/17/2020 Acute pain of right shoulder 11/24/2017 Left knee pain 01/07/2017 12/21/2019 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, with long-term current use of insulin 03/02/2016 08/27/2016 Chronic low back pain 09/29/2014 08/11/2015 Decubitus ulcer of sacral region, stage 2 201406/19/2018 Peripheral neuropathy 06/23/2014 06/21/2020 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 10/21/2013 06/19/2018 CKD (chronic kidney disease) stage 4, GFR 15-29 ml/min 10/21/2013 05/30/2014 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, not stated as uncontrolled(250.51) 09/30/2013 Type II 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, not stated as uncontrolled(250.60) 09/30/2013 01/06/2014 CKD stage G4/A1, GFR 15 - 29 and albumin creatinine ratio <30 mg/g 08/30/2013 05/30/2014 Abnormal gait 03/23/2012 06/21/2020 CRI (chronic renal insufficiency) 11/04/2010 02/20/2017 CRF (chronic renal failure) 07/02/201010/07 Osteoarthritis of knee 09/07/2009 7 Brachial neuritis or radiculitis NOS 04/13/2009 06/21/2020 Ulcer of heel and midfoot 10/08/20072018 ECZEMATOUS DERMATITIS NOS 06/04/20062020 STASIS DERMATITIS///LEG VARICOSITY W INFLAM 12/0602/17/2020 XEROSIS///SEBACEOUS GLAND DIS NEC 12/19/2005 02/17/2020 Closed fracture of head of radius 07/01/2005 08/20/2005 Type I (juvenile type) diabe [place] mellitus without mention of complication, not stated as uncontrolled 05/29/2009 Edema 08/02/2014 DIABETES TYPE II W NEURO MANIFESTATIONS 09/30/2013 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 Ulcer of other part of foot 12/06 Essential hypertension, benign 1 04/22/2016 Thrombocytopenia, unspecified Bilateral lower extremity edema 02/17/2020 documented as of this encounter (statuses as of 02/04/2022) [facility] History of Past illness Narrative* Problem Noted Date Resolved Date Chronic diastolic CHF (congestive heart failure) 06/19/2018 02/17/2020 Acute pain of right shoulder 11/24/2017 Left knee pain 01/07/2017 12/21/2019 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, with long-term current use of insulin 03/02/2016 08/27/2016 Chronic low back pain 09/29/2014 08/11/2015 Decubitus ulcer of sacral region, stage 2 201406/19/2018 Peripheral neuropathy 06/23/2014 06/21/2020 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 10/21/2013 06/19/2018 CKD (chronic kidney disease) stage 4, GFR 15-29 ml/min 10/21/2013 05/30/2014 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, not stated as uncontrolled(250.51) 09/30/2013 Type II 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, not stated as uncontrolled(250.60) 09/30/2013 01/06/2014 CKD stage G4/A1, GFR 15 - 29 and albumin creatinine ratio <30 mg/g 08/30/2013 05/30/2014 Abnormal gait 03/23/2012 06/21/2020 CRI (chronic renal insufficiency) 11/04/2010 02/20/2017 CRF (chronic renal failure) 07/02/201010/07 Osteoarthritis of knee 09/07/2009 7 Brachial neuritis or radiculitis NOS 04/13/2009 06/21/2020 Ulcer of heel and midfoot 10/08/20072018 ECZEMATOUS DERMATITIS NOS 06/04/20062020 STASIS DERMATITIS///LEG VARICOSITY W INFLAM 12/0602/17/2020 XEROSIS///SEBACEOUS GLAND DIS NEC 12/19/2005 02/17/2020 Closed fracture of head of radius 07/01/2005 08/20/2005 Type I (juvenile type) diabe [place] mellitus without mention of complication, not stated as uncontrolled 05/29/2009 Edema 08/02/2014 DIABETES TYPE II W NEURO MANIFESTATIONS 09/30/2013 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 Ulcer of other part of foot 12/06 Essential hypertension, benign 1 04/22/2016 Thrombocytopenia, unspecified Bilateral lower extremity edema 02/17/2020 documented as of this encounter (statuses as of 02/04/2022) [facility] History of Past illness Narrative* Problem Noted Date Resolved Date Chronic diastolic CHF (congestive heart failure) 06/19/2018 02/17/2020 Acute pain of right shoulder 11/24/2017 Left knee pain 01/07/2017 12/21/2019 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, with long-term current use of insulin 03/02/2016 08/27/2016 Chronic low back pain 09/29/2014 08/11/2015 Decubitus ulcer of sacral region, stage 2 201406/19/2018 Peripheral neuropathy 06/23/2014 06/21/2020 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 10/21/2013 06/19/2018 CKD (chronic kidney disease) stage 4, GFR 15-29 ml/min 10/21/2013 05/30/2014 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, not stated as uncontrolled(250.51) 09/30/2013 Type II 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, not stated as uncontrolled(250.60) 09/30/2013 01/06/2014 CKD stage G4/A1, GFR 15 - 29 and albumin creatinine ratio <30 mg/g 08/30/2013 05/30/2014 Abnormal gait 03/23/2012 06/21/2020 CRI (chronic renal insufficiency) 11/04/2010 02/20/2017 CRF (chronic renal failure) 07/02/201010/07 Osteoarthritis of knee 09/07/2009 7 Brachial neuritis or radiculitis NOS 04/13/2009 06/21/2020 Ulcer of heel and midfoot 10/08/20072018 ECZEMATOUS DERMATITIS NOS 06/04/20062020 STASIS DERMATITIS///LEG VARICOSITY W INFLAM 12/0602/17/2020 XEROSIS///SEBACEOUS GLAND DIS NEC 12/19/2005 02/17/2020 Closed fracture of head of radius 07/01/2005 08/20/2005 Type I (juvenile type) diabe [place] mellitus without mention of complication, not stated as uncontrolled 05/29/2009 Edema 08/02/2014 DIABETES TYPE II W NEURO MANIFESTATIONS 09/30/2013 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 Ulcer of other part of foot 12/06 Essential hypertension, benign 1 04/22/2016 Thrombocytopenia, unspecified Bilateral lower extremity edema 02/17/2020 documented as of this encounter (statuses as of 02/05/2022) [facility] History of Past illness Narrative* Problem Noted Date Resolved Date Chronic diastolic CHF (congestive heart failure) 06/19/2018 02/17/2020 Acute pain of right shoulder 11/24/2017 Left knee pain 01/07/2017 12/21/2019 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, with long-term current use of insulin 03/02/2016 08/27/2016 Chronic low back pain 09/29/2014 08/11/2015 Decubitus ulcer of sacral region, stage 2 201406/19/2018 Peripheral neuropathy 06/23/2014 06/21/2020 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 10/21/2013 06/19/2018 CKD (chronic kidney disease) stage 4, GFR 15-29 ml/min 10/21/2013 05/30/2014 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, not stated as uncontrolled(250.51) 09/30/2013 Type II 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, not stated as uncontrolled(250.60) 09/30/2013 01/06/2014 CKD stage G4/A1, GFR 15 - 29 and albumin creatinine ratio <30 mg/g 08/30/2013 05/30/2014 Abnormal gait 03/23/2012 06/21/2020 CRI (chronic renal insufficiency) 11/04/2010 02/20/2017 CRF (chronic renal failure) 07/02/201010/07 Osteoarthritis of knee 09/07/2009 7 Brachial neuritis or radiculitis NOS 04/13/2009 06/21/2020 Ulcer of heel and midfoot 10/08/20072018 ECZEMATOUS DERMATITIS NOS 06/04/20062020 STASIS DERMATITIS///LEG VARICOSITY W INFLAM 12/0602/17/2020 XEROSIS///SEBACEOUS GLAND DIS NEC 12/19/2005 02/17/2020 Closed fracture of head of radius 07/01/2005 08/20/2005 Type I (juvenile type) diabe [place] mellitus without mention of complication, not stated as uncontrolled 05/29/2009 Edema 08/02/2014 DIABETES TYPE II W NEURO MANIFESTATIONS 09/30/2013 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 Ulcer of other part of foot 12/06 Essential hypertension, benign 1 04/22/2016 Thrombocytopenia, unspecified Bilateral lower extremity edema 02/17/2020 documented as of this encounter (statuses as of 02/06/2022) [facility] History of Past illness Narrative* Problem Noted Date Resolved Date Chronic diastolic CHF (congestive heart failure) 06/19/2018 02/17/2020 Acute pain of right shoulder 11/24/2017 Left knee pain 01/07/2017 12/21/2019 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, with long-term current use of insulin 03/02/2016 08/27/2016 Chronic low back pain 09/29/2014 08/11/2015 Decubitus ulcer of sacral region, stage 2 201406/19/2018 Peripheral neuropathy 06/23/2014 06/21/2020 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 10/21/2013 06/19/2018 CKD (chronic kidney disease) stage 4, GFR 15-29 ml/min 10/21/2013 05/30/2014 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, not stated as uncontrolled(250.51) 09/30/2013 Type II 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, not stated as uncontrolled(250.60) 09/30/2013 01/06/2014 CKD stage G4/A1, GFR 15 - 29 and albumin creatinine ratio <30 mg/g 08/30/2013 05/30/2014 Abnormal gait 03/23/2012 06/21/2020 CRI (chronic renal insufficiency) 11/04/2010 02/20/2017 CRF (chronic renal failure) 07/02/201010/07 Osteoarthritis of knee 09/07/2009 7 Brachial neuritis or radiculitis NOS 04/13/2009 06/21/2020 Ulcer of heel and midfoot 10/08/20072018 ECZEMATOUS DERMATITIS NOS 06/04/20062020 STASIS DERMATITIS///LEG VARICOSITY W INFLAM 12/0602/17/2020 XEROSIS///SEBACEOUS GLAND DIS NEC 12/19/2005 02/17/2020 Closed fracture of head of radius 07/01/2005 08/20/2005 Type I (juvenile type) diabe [place] mellitus without mention of complication, not stated as uncontrolled 05/29/2009 Edema 08/02/2014 DIABETES TYPE II W NEURO MANIFESTATIONS 09/30/2013 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 Ulcer of other part of foot 12/06 Essential hypertension, benign 1 04/22/2016 Thrombocytopenia, unspecified Bilateral lower extremity edema 02/17/2020 documented as of this encounter (statuses as of 02/07/2022) [facility]03-[facility]2019 History of Past illness Narrative* Problem Noted Date Resolved Date Chronic diastolic CHF (congestive heart failure) 06/19/2018 02/17/2020 Acute pain of right shoulder 11/24/2017 Left knee pain 01/07/2017 12/21/2019 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, with long-term current use of insulin 03/02/2016 08/27/2016 Chronic low back pain 09/29/2014 08/11/2015 Decubitus ulcer of sacral region, stage 2 201406/19/2018 Peripheral neuropathy 06/23/2014 06/21/2020 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 10/21/2013 06/19/2018 CKD (chronic kidney disease) stage 4, GFR 15-29 ml/min 10/21/2013 05/30/2014 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, not stated as uncontrolled(250.51) 09/30/2013 Type II 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, not stated as uncontrolled(250.60) 09/30/2013 01/06/2014 CKD stage G4/A1, GFR 15 - 29 and albumin creatinine ratio <30 mg/g 08/30/2013 05/30/2014 Abnormal gait 03/23/2012 06/21/2020 CRI (chronic renal insufficiency) 11/04/2010 02/20/2017 CRF (chronic renal failure) 07/02/201010/07 Osteoarthritis of knee 09/07/2009 7 Brachial neuritis or radiculitis NOS 04/13/2009 06/21/2020 Ulcer of heel and midfoot 10/08/20072018 ECZEMATOUS DERMATITIS NOS 06/04/20062020 STASIS DERMATITIS///LEG VARICOSITY W INFLAM 12/0602/17/2020 XEROSIS///SEBACEOUS GLAND DIS NEC 12/19/2005 02/17/2020 Closed fracture of head of radius 07/01/2005 08/20/2005 Type I (juvenile type) diabe [place] mellitus without mention of complication, not stated as uncontrolled 05/29/2009 Edema 08/02/2014 DIABETES TYPE II W NEURO MANIFESTATIONS 09/30/2013 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 Ulcer of other part of foot 12/06 Essential hypertension, benign 1 04/22/2016 Thrombocytopenia, unspecified Bilateral lower extremity edema 02/17/2020 documented as of this encounter (statuses as of 02/08/2022) [facility]2019 History of Past illness Narrative* Problem Noted Date Resolved Date Chronic diastolic CHF (congestive heart failure) 06/19/2018 02/17/2020 Acute pain of right shoulder 11/24/2017 Left knee pain 01/07/2017 12/21/2019 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, with long-term current use of insulin 03/02/2016 08/27/2016 Chronic low back pain 09/29/2014 08/11/2015 Decubitus ulcer of sacral region, stage 2 201406/19/2018 Peripheral neuropathy 06/23/2014 06/21/2020 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 10/21/2013 06/19/2018 CKD (chronic kidney disease) stage 4, GFR 15-29 ml/min 10/21/2013 05/30/2014 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, not stated as uncontrolled(250.51) 09/30/2013 Type II 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, not stated as uncontrolled(250.60) 09/30/2013 01/06/2014 CKD stage G4/A1, GFR 15 - 29 and albumin creatinine ratio <30 mg/g 08/30/2013 05/30/2014 Abnormal gait 03/23/2012 06/21/2020 CRI (chronic renal insufficiency) 11/04/2010 02/20/2017 CRF (chronic renal failure) 07/02/201010/07 Osteoarthritis of knee 09/07/2009 7 Brachial neuritis or radiculitis NOS 04/13/2009 06/21/2020 Ulcer of heel and midfoot 10/08/20072018 ECZEMATOUS DERMATITIS NOS 06/04/20062020 STASIS DERMATITIS///LEG VARICOSITY W INFLAM 12/0602/17/2020 XEROSIS///SEBACEOUS GLAND DIS NEC 12/19/2005 02/17/2020 Closed fracture of head of radius 07/01/2005 08/20/2005 Type I (juvenile type) diabe [place] mellitus without mention of complication, not stated as uncontrolled 05/29/2009 Edema 08/02/2014 DIABETES TYPE II W NEURO MANIFESTATIONS 09/30/2013 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 Ulcer of other part of foot 12/06 Essential hypertension, benign 1 04/22/2016 Thrombocytopenia, unspecified Bilateral lower extremity edema 02/17/2020 documented as of this encounter (statuses as of 02/13/2022) [facility]2019 History of Past illness Narrative* Problem Noted Date Resolved Date Chronic diastolic CHF (congestive heart failure) 06/19/2018 02/17/2020 Acute pain of right shoulder 11/24/2017 Left knee pain 01/07/2017 12/21/2019 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, with long-term current use of insulin 03/02/2016 08/27/2016 Chronic low back pain 09/29/2014 08/11/2015 Decubitus ulcer of sacral region, stage 2 201406/19/2018 Peripheral neuropathy 06/23/2014 06/21/2020 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 10/21/2013 06/19/2018 CKD (chronic kidney disease) stage 4, GFR 15-29 ml/min 10/21/2013 05/30/2014 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, not stated as uncontrolled(250.51) 09/30/2013 Type II 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, not stated as uncontrolled(250.60) 09/30/2013 01/06/2014 CKD stage G4/A1, GFR 15 - 29 and albumin creatinine ratio <30 mg/g 08/30/2013 05/30/2014 Abnormal gait 03/23/2012 06/21/2020 CRI (chronic renal insufficiency) 11/04/2010 02/20/2017 CRF (chronic renal failure) 07/02/201010/07 Osteoarthritis of knee 09/07/2009 7 Brachial neuritis or radiculitis NOS 04/13/2009 06/21/2020 Ulcer of heel and midfoot 10/08/20072018 ECZEMATOUS DERMATITIS NOS 06/04/20062020 STASIS DERMATITIS///LEG VARICOSITY W INFLAM 12/0602/17/2020 XEROSIS///SEBACEOUS GLAND DIS NEC 12/19/2005 02/17/2020 Closed fracture of head of radius 07/01/2005 08/20/2005 Type I (juvenile type) diabe [place] mellitus without mention of complication, not stated as uncontrolled 05/29/2009 Edema 08/02/2014 DIABETES TYPE II W NEURO MANIFESTATIONS 09/30/2013 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 Ulcer of other part of foot 12/06 Essential hypertension, benign 1 04/22/2016 Thrombocytopenia, unspecified Bilateral lower extremity edema 02/17/2020 documented as of this encounter (statuses as of 02/13/2022) [facility]2019 History of Past illness Narrative* Problem Noted Date Resolved Date Chronic diastolic CHF (congestive heart failure) 06/19/2018 02/17/2020 Acute pain of right shoulder 11/24/2017 Left knee pain 01/07/2017 12/21/2019 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, with long-term current use of insulin 03/02/2016 08/27/2016 Chronic low back pain 09/29/2014 08/11/2015 Decubitus ulcer of sacral region, stage 2 201406/19/2018 Peripheral neuropathy 06/23/2014 06/21/2020 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 10/21/2013 06/19/2018 CKD (chronic kidney disease) stage 4, GFR 15-29 ml/min 10/21/2013 05/30/2014 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, not stated as uncontrolled(250.51) 09/30/2013 Type II 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, not stated as uncontrolled(250.60) 09/30/2013 01/06/2014 CKD stage G4/A1, GFR 15 - 29 and albumin creatinine ratio <30 mg/g 08/30/2013 05/30/2014 Abnormal gait 03/23/2012 06/21/2020 CRI (chronic renal insufficiency) 11/04/2010 02/20/2017 CRF (chronic renal failure) 07/02/201010/07 Osteoarthritis of knee 09/07/2009 7 Brachial neuritis or radiculitis NOS 04/13/2009 06/21/2020 Ulcer of heel and midfoot 10/08/20072018 ECZEMATOUS DERMATITIS NOS 06/04/20062020 STASIS DERMATITIS///LEG VARICOSITY W INFLAM 12/0602/17/2020 XEROSIS///SEBACEOUS GLAND DIS NEC 12/19/2005 02/17/2020 Closed fracture of head of radius 07/01/2005 08/20/2005 Type I (juvenile type) diabe [place] mellitus without mention of complication, not stated as uncontrolled 05/29/2009 Edema 08/02/2014 DIABETES TYPE II W NEURO MANIFESTATIONS 09/30/2013 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 Ulcer of other part of foot 12/06 Essential hypertension, benign 1 04/22/2016 Thrombocytopenia, unspecified Bilateral lower extremity edema 02/17/2020 documented as of this encounter (statuses as of 02/15/2022) [facility]2019 History of Past illness Narrative* Problem Noted Date Resolved Date Chronic diastolic CHF (congestive heart failure) 06/19/2018 02/17/2020 Acute pain of right shoulder 11/24/2017 Left knee pain 01/07/2017 12/21/2019 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, with long-term current use of insulin 03/02/2016 08/27/2016 Chronic low back pain 09/29/2014 08/11/2015 Decubitus ulcer of sacral region, stage 2 201406/19/2018 Peripheral neuropathy 06/23/2014 06/21/2020 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 10/21/2013 06/19/2018 CKD (chronic kidney disease) stage 4, GFR 15-29 ml/min 10/21/2013 05/30/2014 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, not stated as uncontrolled(250.51) 09/30/2013 Type II 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, not stated as uncontrolled(250.60) 09/30/2013 01/06/2014 CKD stage G4/A1, GFR 15 - 29 and albumin creatinine ratio <30 mg/g 08/30/2013 05/30/2014 Abnormal gait 03/23/2012 06/21/2020 CRI (chronic renal insufficiency) 11/04/2010 02/20/2017 CRF (chronic renal failure) 07/02/201010/07 Osteoarthritis of knee 09/07/2009 7 Brachial neuritis or radiculitis NOS 04/13/2009 06/21/2020 Ulcer of heel and midfoot 10/08/20072018 ECZEMATOUS DERMATITIS NOS 06/04/20062020 STASIS DERMATITIS///LEG VARICOSITY W INFLAM 12/0602/17/2020 XEROSIS///SEBACEOUS GLAND DIS NEC 12/19/2005 02/17/2020 Closed fracture of head of radius 07/01/2005 08/20/2005 Type I (juvenile type) diabe [place] mellitus without mention of complication, not stated as uncontrolled 05/29/2009 Edema 08/02/2014 DIABETES TYPE II W NEURO MANIFESTATIONS 09/30/2013 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 Ulcer of other part of foot 12/06 Essential hypertension, benign 1 04/22/2016 Thrombocytopenia, unspecified Bilateral lower extremity edema 02/17/2020 documented as of this encounter (statuses as of 03/02/2022) [facility]2019 History of Past illness Narrative* Problem Noted Date Resolved Date Chronic diastolic CHF (congestive heart failure) 06/19/2018 02/17/2020 Acute pain of right shoulder 11/24/2017 Left knee pain 01/07/2017 12/21/2019 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, with long-term current use of insulin 03/02/2016 08/27/2016 Chronic low back pain 09/29/2014 08/11/2015 Decubitus ulcer of sacral region, stage 2 201406/19/2018 Peripheral neuropathy 06/23/2014 06/21/2020 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 10/21/2013 06/19/2018 CKD (chronic kidney disease) stage 4, GFR 15-29 ml/min 10/21/2013 05/30/2014 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, not stated as uncontrolled(250.51) 09/30/2013 Type II 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, not stated as uncontrolled(250.60) 09/30/2013 01/06/2014 CKD stage G4/A1, GFR 15 - 29 and albumin creatinine ratio <30 mg/g 08/30/2013 05/30/2014 Abnormal gait 03/23/2012 06/21/2020 CRI (chronic renal insufficiency) 11/04/2010 02/20/2017 CRF (chronic renal failure) 07/02/201010/07 Osteoarthritis of knee 09/07/2009 7 Brachial neuritis or radiculitis NOS 04/13/2009 06/21/2020 Ulcer of heel and midfoot 10/08/20072018 ECZEMATOUS DERMATITIS NOS 06/04/20062020 STASIS DERMATITIS///LEG VARICOSITY W INFLAM 12/0602/17/2020 XEROSIS///SEBACEOUS GLAND DIS NEC 12/19/2005 02/17/2020 Closed fracture of head of radius 07/01/2005 08/20/2005 Type I (juvenile type) diabe [place] mellitus without mention of complication, not stated as uncontrolled 05/29/2009 Edema 08/02/2014 DIABETES TYPE II W NEURO MANIFESTATIONS 09/30/2013 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 Ulcer of other part of foot 12/06 Essential hypertension, benign 1 04/22/2016 Thrombocytopenia, unspecified Bilateral lower extremity edema 02/17/2020 documented as of this encounter (statuses as of 03/08/2022) [facility]2019 History of Past illness Narrative* Problem Noted Date Resolved Date Chronic diastolic CHF (congestive heart failure) 06/19/2018 02/17/2020 Acute pain of right shoulder 11/24/2017 Left knee pain 01/07/2017 12/21/2019 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, with long-term current use of insulin 03/02/2016 08/27/2016 Chronic low back pain 09/29/2014 08/11/2015 Decubitus ulcer of sacral region, stage 2 201406/19/2018 Peripheral neuropathy 06/23/2014 06/21/2020 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 10/21/2013 06/19/2018 CKD (chronic kidney disease) stage 4, GFR 15-29 ml/min 10/21/2013 05/30/2014 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, not stated as uncontrolled(250.51) 09/30/2013 Type II 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, not stated as uncontrolled(250.60) 09/30/2013 01/06/2014 CKD stage G4/A1, GFR 15 - 29 and albumin creatinine ratio <30 mg/g 08/30/2013 05/30/2014 Abnormal gait 03/23/2012 06/21/2020 CRI (chronic renal insufficiency) 11/04/2010 02/20/2017 CRF (chronic renal failure) 07/02/201010/07 Osteoarthritis of knee 09/07/2009 7 Brachial neuritis or radiculitis NOS 04/13/2009 06/21/2020 Ulcer of heel and midfoot 10/08/20072018 ECZEMATOUS DERMATITIS NOS 06/04/20062020 STASIS DERMATITIS///LEG VARICOSITY W INFLAM 12/0602/17/2020 XEROSIS///SEBACEOUS GLAND DIS NEC 12/19/2005 02/17/2020 Closed fracture of head of radius 07/01/2005 08/20/2005 Type I (juvenile type) diabe [place] mellitus without mention of complication, not stated as uncontrolled 05/29/2009 Edema 08/02/2014 DIABETES TYPE II W NEURO MANIFESTATIONS 09/30/2013 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 Ulcer of other part of foot 12/06 Essential hypertension, benign 1 04/22/2016 Thrombocytopenia, unspecified Bilateral lower extremity edema 02/17/2020 documented as of this encounter (statuses as of 03/20/2022) [facility] History of Past illness Narrative* Problem Noted Date Resolved Date Chronic diastolic CHF (congestive heart failure) 06/19/2018 02/17/2020 Acute pain of right shoulder 11/24/2017 Left knee pain 01/07/2017 12/21/2019 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, with long-term current use of insulin 03/02/2016 08/27/2016 Chronic low back pain 09/29/2014 08/11/2015 Decubitus ulcer of sacral region, stage 2 201406/19/2018 Peripheral neuropathy 06/23/2014 06/21/2020 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 10/21/2013 06/19/2018 CKD (chronic kidney disease) stage 4, GFR 15-29 ml/min 10/21/2013 05/30/2014 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, not stated as uncontrolled(250.51) 09/30/2013 Type II 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, not stated as uncontrolled(250.60) 09/30/2013 01/06/2014 CKD stage G4/A1, GFR 15 - 29 and albumin creatinine ratio <30 mg/g 08/30/2013 05/30/2014 Abnormal gait 03/23/2012 06/21/2020 CRI (chronic renal insufficiency) 11/04/2010 02/20/2017 CRF (chronic renal failure) 07/02/201010/07 Osteoarthritis of knee 09/07/2009 7 Brachial neuritis or radiculitis NOS 04/13/2009 06/21/2020 Ulcer of heel and midfoot 10/08/20072018 ECZEMATOUS DERMATITIS NOS 06/04/20062020 STASIS DERMATITIS///LEG VARICOSITY W INFLAM 12/0602/17/2020 XEROSIS///SEBACEOUS GLAND DIS NEC 12/19/2005 02/17/2020 Closed fracture of head of radius 07/01/2005 08/20/2005 Type I (juvenile type) diabe [place] mellitus without mention of complication, not stated as uncontrolled 05/29/2009 Edema 08/02/2014 DIABETES TYPE II W NEURO MANIFESTATIONS 09/30/2013 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 Ulcer of other part of foot 12/06 Essential hypertension, benign 1 04/22/2016 Thrombocytopenia, unspecified Bilateral lower extremity edema 02/17/2020 documented as of this encounter (statuses as of 03/26/2022) [facility] History of Past illness Narrative* Problem Noted Date Resolved Date Chronic diastolic CHF (congestive heart failure) 06/19/2018 02/17/2020 Acute pain of right shoulder 11/24/2017 Left knee pain 01/07/2017 12/21/2019 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, with long-term current use of insulin 03/02/2016 08/27/2016 Chronic low back pain 09/29/2014 08/11/2015 Decubitus ulcer of sacral region, stage 2 201406/19/2018 Peripheral neuropathy 06/23/2014 06/21/2020 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 10/21/2013 06/19/2018 CKD (chronic kidney disease) stage 4, GFR 15-29 ml/min 10/21/2013 05/30/2014 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, not stated as uncontrolled(250.51) 09/30/2013 Type II 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, not stated as uncontrolled(250.60) 09/30/2013 01/06/2014 CKD stage G4/A1, GFR 15 - 29 and albumin creatinine ratio <30 mg/g 08/30/2013 05/30/2014 Abnormal gait 03/23/2012 06/21/2020 CRI (chronic renal insufficiency) 11/04/2010 02/20/2017 CRF (chronic renal failure) 07/02/201010/07 Osteoarthritis of knee 09/07/2009 7 Brachial neuritis or radiculitis NOS 04/13/2009 06/21/2020 Ulcer of heel and midfoot 10/08/20072018 ECZEMATOUS DERMATITIS NOS 06/04/20062020 STASIS DERMATITIS///LEG VARICOSITY W INFLAM 12/0602/17/2020 XEROSIS///SEBACEOUS GLAND DIS NEC 12/19/2005 02/17/2020 Closed fracture of head of radius 07/01/2005 08/20/2005 Type I (juvenile type) diabe [place] mellitus without mention of complication, not stated as uncontrolled 05/29/2009 Edema 08/02/2014 DIABETES TYPE II W NEURO MANIFESTATIONS 09/30/2013 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 Ulcer of other part of foot 12/06 Essential hypertension, benign 1 04/22/2016 Thrombocytopenia, unspecified Bilateral lower extremity edema 02/17/2020 documented as of this encounter (statuses as of 03/27/2022) [facility] History of Past illness Narrative* Problem Noted Date Resolved Date Chronic diastolic CHF (congestive heart failure) 06/19/2018 02/17/2020 Acute pain of right shoulder 11/24/2017 Left knee pain 01/07/2017 12/21/2019 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, with long-term current use of insulin 03/02/2016 08/27/2016 Chronic low back pain 09/29/2014 08/11/2015 Decubitus ulcer of sacral region, stage 2 201406/19/2018 Peripheral neuropathy 06/23/2014 06/21/2020 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 10/21/2013 06/19/2018 CKD (chronic kidney disease) stage 4, GFR 15-29 ml/min 10/21/2013 05/30/2014 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, not stated as uncontrolled(250.51) 09/30/2013 Type II 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, not stated as uncontrolled(250.60) 09/30/2013 01/06/2014 CKD stage G4/A1, GFR 15 - 29 and albumin creatinine ratio <30 mg/g 08/30/2013 05/30/2014 Abnormal gait 03/23/2012 06/21/2020 CRI (chronic renal insufficiency) 11/04/2010 02/20/2017 CRF (chronic renal failure) 07/02/201010/07 Osteoarthritis of knee 09/07/2009 7 Brachial neuritis or radiculitis NOS 04/13/2009 06/21/2020 Ulcer of heel and midfoot 10/08/20072018 ECZEMATOUS DERMATITIS NOS 06/04/20062020 STASIS DERMATITIS///LEG VARICOSITY W INFLAM 12/0602/17/2020 XEROSIS///SEBACEOUS GLAND DIS NEC 12/19/2005 02/17/2020 Closed fracture of head of radius 07/01/2005 08/20/2005 Type I (juvenile type) diabe [place] mellitus without mention of complication, not stated as uncontrolled 05/29/2009 Edema 08/02/2014 DIABETES TYPE II W NEURO MANIFESTATIONS 09/30/2013 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 Ulcer of other part of foot 12/06 Essential hypertension, benign 1 04/22/2016 Thrombocytopenia, unspecified Bilateral lower extremity edema 02/17/2020 documented as of this encounter (statuses as of 04/01/2022) [facility] History of Past illness Narrative* Problem Noted Date Resolved Date Chronic diastolic CHF (congestive heart failure) 06/19/2018 02/17/2020 Acute pain of right shoulder 11/24/2017 Left knee pain 01/07/2017 12/21/2019 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, with long-term current use of insulin 03/02/2016 08/27/2016 Chronic low back pain 09/29/2014 08/11/2015 Decubitus ulcer of sacral region, stage 2 201406/19/2018 Peripheral neuropathy 06/23/2014 06/21/2020 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 10/21/2013 06/19/2018 CKD (chronic kidney disease) stage 4, GFR 15-29 ml/min 10/21/2013 05/30/2014 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, not stated as uncontrolled(250.51) 09/30/2013 Type II 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, not stated as uncontrolled(250.60) 09/30/2013 01/06/2014 CKD stage G4/A1, GFR 15 - 29 and albumin creatinine ratio <30 mg/g 08/30/2013 05/30/2014 Abnormal gait 03/23/2012 06/21/2020 CRI (chronic renal insufficiency) 11/04/2010 02/20/2017 CRF (chronic renal failure) 07/02/201010/07 Osteoarthritis of knee 09/07/2009 7 Brachial neuritis or radiculitis NOS 04/13/2009 06/21/2020 Ulcer of heel and midfoot 10/08/20072018 ECZEMATOUS DERMATITIS NOS 06/04/20062020 STASIS DERMATITIS///LEG VARICOSITY W INFLAM 12/0602/17/2020 XEROSIS///SEBACEOUS GLAND DIS NEC 12/19/2005 02/17/2020 Closed fracture of head of radius 07/01/2005 08/20/2005 Type I (juvenile type) diabe [place] mellitus without mention of complication, not stated as uncontrolled 05/29/2009 Edema 08/02/2014 DIABETES TYPE II W NEURO MANIFESTATIONS 09/30/2013 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 Ulcer of other part of foot 12/06 Essential hypertension, benign 1 04/22/2016 Thrombocytopenia, unspecified Bilateral lower extremity edema 02/17/2020 documented as of this encounter (statuses as of 04/01/2022) [facility] History of Past illness Narrative* Problem Noted Date Resolved Date Chronic diastolic CHF (congestive heart failure) 06/19/2018 02/17/2020 Acute pain of right shoulder 11/24/2017 Left knee pain 01/07/2017 12/21/2019 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, with long-term current use of insulin 03/02/2016 08/27/2016 Chronic low back pain 09/29/2014 08/11/2015 Decubitus ulcer of sacral region, stage 2 201406/19/2018 Peripheral neuropathy 06/23/2014 06/21/2020 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 10/21/2013 06/19/2018 CKD (chronic kidney disease) stage 4, GFR 15-29 ml/min 10/21/2013 05/30/2014 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, not stated as uncontrolled(250.51) 09/30/2013 Type II 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, not stated as uncontrolled(250.60) 09/30/2013 01/06/2014 CKD stage G4/A1, GFR 15 - 29 and albumin creatinine ratio <30 mg/g 08/30/2013 05/30/2014 Abnormal gait 03/23/2012 06/21/2020 CRI (chronic renal insufficiency) 11/04/2010 02/20/2017 CRF (chronic renal failure) 07/02/201010/07 Osteoarthritis of knee 09/07/2009 7 Brachial neuritis or radiculitis NOS 04/13/2009 06/21/2020 Ulcer of heel and midfoot 10/08/20072018 ECZEMATOUS DERMATITIS NOS 06/04/20062020 STASIS DERMATITIS///LEG VARICOSITY W INFLAM 12/0602/17/2020 XEROSIS///SEBACEOUS GLAND DIS NEC 12/19/2005 02/17/2020 Closed fracture of head of radius 07/01/2005 08/20/2005 Type I (juvenile type) diabe [place] mellitus without mention of complication, not stated as uncontrolled 05/29/2009 Edema 08/02/2014 DIABETES TYPE II W NEURO MANIFESTATIONS 09/30/2013 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 Ulcer of other part of foot 12/06 Essential hypertension, benign 1 04/22/2016 Thrombocytopenia, unspecified Bilateral lower extremity edema 02/17/2020 documented as of this encounter (statuses as of 04/07/2022) [facility]2019 History of Past illness Narrative* Problem Noted Date Resolved Date Chronic diastolic CHF (congestive heart failure) 06/19/2018 02/17/2020 Acute pain of right shoulder 11/24/2017 Left knee pain 01/07/2017 12/21/2019 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, with long-term current use of insulin 03/02/2016 08/27/2016 Chronic low back pain 09/29/2014 08/11/2015 Decubitus ulcer of sacral region, stage 2 201406/19/2018 Peripheral neuropathy 06/23/2014 06/21/2020 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 10/21/2013 06/19/2018 CKD (chronic kidney disease) stage 4, GFR 15-29 ml/min 10/21/2013 05/30/2014 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, not stated as uncontrolled(250.51) 09/30/2013 Type II 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, not stated as uncontrolled(250.60) 09/30/2013 01/06/2014 CKD stage G4/A1, GFR 15 - 29 and albumin creatinine ratio <30 mg/g 08/30/2013 05/30/2014 Abnormal gait 03/23/2012 06/21/2020 CRI (chronic renal insufficiency) 11/04/2010 02/20/2017 CRF (chronic renal failure) 07/02/201010/07 Osteoarthritis of knee 09/07/2009 7 Brachial neuritis or radiculitis NOS 04/13/2009 06/21/2020 Ulcer of heel and midfoot 10/08/20072018 ECZEMATOUS DERMATITIS NOS 06/04/20062020 STASIS DERMATITIS///LEG VARICOSITY W INFLAM 12/0602/17/2020 XEROSIS///SEBACEOUS GLAND DIS NEC 12/19/2005 02/17/2020 Closed fracture of head of radius 07/01/2005 08/20/2005 Type I (juvenile type) diabe [place] mellitus without mention of complication, not stated as uncontrolled 05/29/2009 Edema 08/02/2014 DIABETES TYPE II W NEURO MANIFESTATIONS 09/30/2013 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 Ulcer of other part of foot 12/06 Essential hypertension, benign 1 04/22/2016 Thrombocytopenia, unspecified Bilateral lower extremity edema 02/17/2020 documented as of this encounter (statuses as of 04/09/2022) [facility]2019 History of Past illness Narrative* Problem Noted Date Resolved Date Chronic diastolic CHF (congestive heart failure) 06/19/2018 02/17/2020 Acute pain of right shoulder 11/24/2017 Left knee pain 01/07/2017 12/21/2019 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, with long-term current use of insulin 03/02/2016 08/27/2016 Chronic low back pain 09/29/2014 08/11/2015 Decubitus ulcer of sacral region, stage 2 201406/19/2018 Peripheral neuropathy 06/23/2014 06/21/2020 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 10/21/2013 06/19/2018 CKD (chronic kidney disease) stage 4, GFR 15-29 ml/min 10/21/2013 05/30/2014 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, not stated as uncontrolled(250.51) 09/30/2013 Type II 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, not stated as uncontrolled(250.60) 09/30/2013 01/06/2014 CKD stage G4/A1, GFR 15 - 29 and albumin creatinine ratio <30 mg/g 08/30/2013 05/30/2014 Abnormal gait 03/23/2012 06/21/2020 CRI (chronic renal insufficiency) 11/04/2010 02/20/2017 CRF (chronic renal failure) 07/02/201010/07 Osteoarthritis of knee 09/07/2009 7 Brachial neuritis or radiculitis NOS 04/13/2009 06/21/2020 Ulcer of heel and midfoot 10/08/20072018 ECZEMATOUS DERMATITIS NOS 06/04/20062020 STASIS DERMATITIS///LEG VARICOSITY W INFLAM 12/0602/17/2020 XEROSIS///SEBACEOUS GLAND DIS NEC 12/19/2005 02/17/2020 Closed fracture of head of radius 07/01/2005 08/20/2005 Type I (juvenile type) diabe [place] mellitus without mention of complication, not stated as uncontrolled 05/29/2009 Edema 08/02/2014 DIABETES TYPE II W NEURO MANIFESTATIONS 09/30/2013 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 Ulcer of other part of foot 12/06 Essential hypertension, benign 1 04/22/2016 Thrombocytopenia, unspecified Bilateral lower extremity edema 02/17/2020 documented as of this encounter (statuses as of 04/10/2022) [facility]2019 History of Past illness Narrative* Problem Noted Date Resolved Date Chronic diastolic CHF (congestive heart failure) 06/19/2018 02/17/2020 Acute pain of right shoulder 11/24/2017 Left knee pain 01/07/2017 12/21/2019 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, with long-term current use of insulin 03/02/2016 08/27/2016 Chronic low back pain 09/29/2014 08/11/2015 Decubitus ulcer of sacral region, stage 2 201406/19/2018 Peripheral neuropathy 06/23/2014 06/21/2020 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 10/21/2013 06/19/2018 CKD (chronic kidney disease) stage 4, GFR 15-29 ml/min 10/21/2013 05/30/2014 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, not stated as uncontrolled(250.51) 09/30/2013 Type II 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, not stated as uncontrolled(250.60) 09/30/2013 01/06/2014 CKD stage G4/A1, GFR 15 - 29 and albumin creatinine ratio <30 mg/g 08/30/2013 05/30/2014 Abnormal gait 03/23/2012 06/21/2020 CRI (chronic renal insufficiency) 11/04/2010 02/20/2017 CRF (chronic renal failure) 07/02/201010/07 Osteoarthritis of knee 09/07/2009 7 Brachial neuritis or radiculitis NOS 04/13/2009 06/21/2020 Ulcer of heel and midfoot 10/08/20072018 ECZEMATOUS DERMATITIS NOS 06/04/20062020 STASIS DERMATITIS///LEG VARICOSITY W INFLAM 12/0602/17/2020 XEROSIS///SEBACEOUS GLAND DIS NEC 12/19/2005 02/17/2020 Closed fracture of head of radius 07/01/2005 08/20/2005 Type I (juvenile type) diabe [place] mellitus without mention of complication, not stated as uncontrolled 05/29/2009 Edema 08/02/2014 DIABETES TYPE II W NEURO MANIFESTATIONS 09/30/2013 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 Ulcer of other part of foot 12/06 Essential hypertension, benign 1 04/22/2016 Thrombocytopenia, unspecified Bilateral lower extremity edema 02/17/2020 documented as of this encounter (statuses as of 04/15/2022) [facility]2019 History of Past illness Narrative* Problem Noted Date Resolved Date Chronic diastolic CHF (congestive heart failure) 06/19/2018 02/17/2020 Acute pain of right shoulder 11/24/2017 Left knee pain 01/07/2017 12/21/2019 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, with long-term current use of insulin 03/02/2016 08/27/2016 Chronic low back pain 09/29/2014 08/11/2015 Decubitus ulcer of sacral region, stage 2 201406/19/2018 Peripheral neuropathy 06/23/2014 06/21/2020 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 10/21/2013 06/19/2018 CKD (chronic kidney disease) stage 4, GFR 15-29 ml/min 10/21/2013 05/30/2014 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, not stated as uncontrolled(250.51) 09/30/2013 Type II 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, not stated as uncontrolled(250.60) 09/30/2013 01/06/2014 CKD stage G4/A1, GFR 15 - 29 and albumin creatinine ratio <30 mg/g 08/30/2013 05/30/2014 Abnormal gait 03/23/2012 06/21/2020 CRI (chronic renal insufficiency) 11/04/2010 02/20/2017 CRF (chronic renal failure) 07/02/201010/07 Osteoarthritis of knee 09/07/2009 7 Brachial neuritis or radiculitis NOS 04/13/2009 06/21/2020 Ulcer of heel and midfoot 10/08/20072018 ECZEMATOUS DERMATITIS NOS 06/04/20062020 STASIS DERMATITIS///LEG VARICOSITY W INFLAM 12/0602/17/2020 XEROSIS///SEBACEOUS GLAND DIS NEC 12/19/2005 02/17/2020 Closed fracture of head of radius 07/01/2005 08/20/2005 Type I (juvenile type) diabe [place] mellitus without mention of complication, not stated as uncontrolled 05/29/2009 Edema 08/02/2014 DIABETES TYPE II W NEURO MANIFESTATIONS 09/30/2013 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 Ulcer of other part of foot 12/06 Essential hypertension, benign 1 04/22/2016 Thrombocytopenia, unspecified Bilateral lower extremity edema 02/17/2020 documented as of this encounter (statuses as of 04/15/2022) [facility]2019 History of Past illness Narrative* Problem Noted Date Resolved Date Chronic diastolic CHF (congestive heart failure) 06/19/2018 02/17/2020 Acute pain of right shoulder 11/24/2017 Left knee pain 01/07/2017 12/21/2019 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, with long-term current use of insulin 03/02/2016 08/27/2016 Chronic low back pain 09/29/2014 08/11/2015 Decubitus ulcer of sacral region, stage 2 201406/19/2018 Peripheral neuropathy 06/23/2014 06/21/2020 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 10/21/2013 06/19/2018 CKD (chronic kidney disease) stage 4, GFR 15-29 ml/min 10/21/2013 05/30/2014 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, not stated as uncontrolled(250.51) 09/30/2013 Type II 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, not stated as uncontrolled(250.60) 09/30/2013 01/06/2014 CKD stage G4/A1, GFR 15 - 29 and albumin creatinine ratio <30 mg/g 08/30/2013 05/30/2014 Abnormal gait 03/23/2012 06/21/2020 CRI (chronic renal insufficiency) 11/04/2010 02/20/2017 CRF (chronic renal failure) 07/02/201010/07 Osteoarthritis of knee 09/07/2009 7 Brachial neuritis or radiculitis NOS 04/13/2009 06/21/2020 Ulcer of heel and midfoot 10/08/20072018 ECZEMATOUS DERMATITIS NOS 06/04/20062020 STASIS DERMATITIS///LEG VARICOSITY W INFLAM 12/0602/17/2020 XEROSIS///SEBACEOUS GLAND DIS NEC 12/19/2005 02/17/2020 Closed fracture of head of radius 07/01/2005 08/20/2005 Type I (juvenile type) diabe [place] mellitus without mention of complication, not stated as uncontrolled 05/29/2009 Edema 08/02/2014 DIABETES TYPE II W NEURO MANIFESTATIONS 09/30/2013 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 Ulcer of other part of foot 12/06 Essential hypertension, benign 1 04/22/2016 Thrombocytopenia, unspecified Bilateral lower extremity edema 02/17/2020 documented as of this encounter (statuses as of 04/26/2022) [facility]2019 History of Past illness Narrative* Problem Noted Date Resolved Date Chronic diastolic CHF (congestive heart failure) 06/19/2018 02/17/2020 Acute pain of right shoulder 11/24/2017 Left knee pain 01/07/2017 12/21/2019 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, with long-term current use of insulin 03/02/2016 08/27/2016 Chronic low back pain 09/29/2014 08/11/2015 Decubitus ulcer of sacral region, stage 2 201406/19/2018 Peripheral neuropathy 06/23/2014 06/21/2020 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 10/21/2013 06/19/2018 CKD (chronic kidney disease) stage 4, GFR 15-29 ml/min 10/21/2013 05/30/2014 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, not stated as uncontrolled(250.51) 09/30/2013 Type II 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, not stated as uncontrolled(250.60) 09/30/2013 01/06/2014 CKD stage G4/A1, GFR 15 - 29 and albumin creatinine ratio <30 mg/g 08/30/2013 05/30/2014 Abnormal gait 03/23/2012 06/21/2020 CRI (chronic renal insufficiency) 11/04/2010 02/20/2017 CRF (chronic renal failure) 07/02/201010/07 Osteoarthritis of knee 09/07/2009 7 Brachial neuritis or radiculitis NOS 04/13/2009 06/21/2020 Ulcer of heel and midfoot 10/08/20072018 ECZEMATOUS DERMATITIS NOS 06/04/20062020 STASIS DERMATITIS///LEG VARICOSITY W INFLAM 12/0602/17/2020 XEROSIS///SEBACEOUS GLAND DIS NEC 12/19/2005 02/17/2020 Closed fracture of head of radius 07/01/2005 08/20/2005 Type I (juvenile type) diabe [place] mellitus without mention of complication, not stated as uncontrolled 05/29/2009 Edema 08/02/2014 DIABETES TYPE II W NEURO MANIFESTATIONS 09/30/2013 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 Ulcer of other part of foot 12/06 Essential hypertension, benign 1 04/22/2016 Thrombocytopenia, unspecified Bilateral lower extremity edema 02/17/2020 documented as of this encounter (statuses as of 04/30/2022) [facility]2019 History of Past illness Narrative* Problem Noted Date Resolved Date Chronic diastolic CHF (congestive heart failure) 06/19/2018 02/17/2020 Acute pain of right shoulder 11/24/2017 Left knee pain 01/07/2017 12/21/2019 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, with long-term current use of insulin 03/02/2016 08/27/2016 Chronic low back pain 09/29/2014 08/11/2015 Decubitus ulcer of sacral region, stage 2 201406/19/2018 Peripheral neuropathy 06/23/2014 06/21/2020 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 10/21/2013 06/19/2018 CKD (chronic kidney disease) stage 4, GFR 15-29 ml/min 10/21/2013 05/30/2014 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, not stated as uncontrolled(250.51) 09/30/2013 Type II 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, not stated as uncontrolled(250.60) 09/30/2013 01/06/2014 CKD stage G4/A1, GFR 15 - 29 and albumin creatinine ratio <30 mg/g 08/30/2013 05/30/2014 Abnormal gait 03/23/2012 06/21/2020 CRI (chronic renal insufficiency) 11/04/2010 02/20/2017 CRF (chronic renal failure) 07/02/201010/07 Osteoarthritis of knee 09/07/2009 7 Brachial neuritis or radiculitis NOS 04/13/2009 06/21/2020 Ulcer of heel and midfoot 10/08/20072018 ECZEMATOUS DERMATITIS NOS 06/04/20062020 STASIS DERMATITIS///LEG VARICOSITY W INFLAM 12/0602/17/2020 XEROSIS///SEBACEOUS GLAND DIS NEC 12/19/2005 02/17/2020 Closed fracture of head of radius 07/01/2005 08/20/2005 Type I (juvenile type) diabe [place] mellitus without mention of complication, not stated as uncontrolled 05/29/2009 Edema 08/02/2014 DIABETES TYPE II W NEURO MANIFESTATIONS 09/30/2013 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 Ulcer of other part of foot 12/06 Essential hypertension, benign 1 04/22/2016 Thrombocytopenia, unspecified Bilateral lower extremity edema 02/17/2020 documented as of this encounter (statuses as of 04/30/2022) [facility]2019 History of Past illness Narrative* Problem Noted Date Resolved Date Chronic diastolic CHF (congestive heart failure) 06/19/2018 02/17/2020 Acute pain of right shoulder 11/24/2017 Left knee pain 01/07/2017 12/21/2019 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, with long-term current use of insulin 03/02/2016 08/27/2016 Chronic low back pain 09/29/2014 08/11/2015 Decubitus ulcer of sacral region, stage 2 201406/19/2018 Peripheral neuropathy 06/23/2014 06/21/2020 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 10/21/2013 06/19/2018 CKD (chronic kidney disease) stage 4, GFR 15-29 ml/min 10/21/2013 05/30/2014 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, not stated as uncontrolled(250.51) 09/30/2013 Type II 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, not stated as uncontrolled(250.60) 09/30/2013 01/06/2014 CKD stage G4/A1, GFR 15 - 29 and albumin creatinine ratio <30 mg/g 08/30/2013 05/30/2014 Abnormal gait 03/23/2012 06/21/2020 CRI (chronic renal insufficiency) 11/04/2010 02/20/2017 CRF (chronic renal failure) 07/02/201010/07 Osteoarthritis of knee 09/07/2009 7 Brachial neuritis or radiculitis NOS 04/13/2009 06/21/2020 Ulcer of heel and midfoot 10/08/20072018 ECZEMATOUS DERMATITIS NOS 06/04/20062020 STASIS DERMATITIS///LEG VARICOSITY W INFLAM 12/0602/17/2020 XEROSIS///SEBACEOUS GLAND DIS NEC 12/19/2005 02/17/2020 Closed fracture of head of radius 07/01/2005 08/20/2005 Type I (juvenile type) diabe [place] mellitus without mention of complication, not stated as uncontrolled 05/29/2009 Edema 08/02/2014 DIABETES TYPE II W NEURO MANIFESTATIONS 09/30/2013 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 Ulcer of other part of foot 12/06 Essential hypertension, benign 1 04/22/2016 Thrombocytopenia, unspecified Bilateral lower extremity edema 02/17/2020 documented as of this encounter (statuses as of 05/01/2022) [facility] History of Past illness Narrative* Problem Noted Date Resolved Date Chronic diastolic CHF (congestive heart failure) 06/19/2018 02/17/2020 Acute pain of right shoulder 11/24/2017 Left knee pain 01/07/2017 12/21/2019 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, with long-term current use of insulin 03/02/2016 08/27/2016 Chronic low back pain 09/29/2014 08/11/2015 Decubitus ulcer of sacral region, stage 2 201406/19/2018 Peripheral neuropathy 06/23/2014 06/21/2020 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 10/21/2013 06/19/2018 CKD (chronic kidney disease) stage 4, GFR 15-29 ml/min 10/21/2013 05/30/2014 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, not stated as uncontrolled(250.51) 09/30/2013 Type II 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, not stated as uncontrolled(250.60) 09/30/2013 01/06/2014 CKD stage G4/A1, GFR 15 - 29 and albumin creatinine ratio <30 mg/g 08/30/2013 05/30/2014 Abnormal gait 03/23/2012 06/21/2020 CRI (chronic renal insufficiency) 11/04/2010 02/20/2017 CRF (chronic renal failure) 07/02/201010/07 Osteoarthritis of knee 09/07/2009 7 Brachial neuritis or radiculitis NOS 04/13/2009 06/21/2020 Ulcer of heel and midfoot 10/08/20072018 ECZEMATOUS DERMATITIS NOS 06/04/20062020 STASIS DERMATITIS///LEG VARICOSITY W INFLAM 12/0602/17/2020 XEROSIS///SEBACEOUS GLAND DIS NEC 12/19/2005 02/17/2020 Closed fracture of head of radius 07/01/2005 08/20/2005 Type I (juvenile type) diabe [place] mellitus without mention of complication, not stated as uncontrolled 05/29/2009 Edema 08/02/2014 DIABETES TYPE II W NEURO MANIFESTATIONS 09/30/2013 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 Ulcer of other part of foot 12/06 Essential hypertension, benign 1 04/22/2016 Thrombocytopenia, unspecified Bilateral lower extremity edema 02/17/2020 documented as of this encounter (statuses as of 05/02/2022) [facility] History of Past illness Narrative* Problem Noted Date Resolved Date Chronic diastolic CHF (congestive heart failure) 06/19/2018 02/17/2020 Acute pain of right shoulder 11/24/2017 Left knee pain 01/07/2017 12/21/2019 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, with long-term current use of insulin 03/02/2016 08/27/2016 Chronic low back pain 09/29/2014 08/11/2015 Decubitus ulcer of sacral region, stage 2 201406/19/2018 Peripheral neuropathy 06/23/2014 06/21/2020 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 10/21/2013 06/19/2018 CKD (chronic kidney disease) stage 4, GFR 15-29 ml/min 10/21/2013 05/30/2014 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, not stated as uncontrolled(250.51) 09/30/2013 Type II 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, not stated as uncontrolled(250.60) 09/30/2013 01/06/2014 CKD stage G4/A1, GFR 15 - 29 and albumin creatinine ratio <30 mg/g 08/30/2013 05/30/2014 Abnormal gait 03/23/2012 06/21/2020 CRI (chronic renal insufficiency) 11/04/2010 02/20/2017 CRF (chronic renal failure) 07/02/201010/07 Osteoarthritis of knee 09/07/2009 7 Brachial neuritis or radiculitis NOS 04/13/2009 06/21/2020 Ulcer of heel and midfoot 10/08/20072018 ECZEMATOUS DERMATITIS NOS 06/04/20062020 STASIS DERMATITIS///LEG VARICOSITY W INFLAM 12/0602/17/2020 XEROSIS///SEBACEOUS GLAND DIS NEC 12/19/2005 02/17/2020 Closed fracture of head of radius 07/01/2005 08/20/2005 Type I (juvenile type) diabe [place] mellitus without mention of complication, not stated as uncontrolled 05/29/2009 Edema 08/02/2014 DIABETES TYPE II W NEURO MANIFESTATIONS 09/30/2013 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 Ulcer of other part of foot 12/06 Essential hypertension, benign 1 04/22/2016 Thrombocytopenia, unspecified Bilateral lower extremity edema 02/17/2020 documented as of this encounter (statuses as of 05/15/2022) [facility] History of Past illness Narrative* Problem Noted Date Resolved Date Chronic diastolic CHF (congestive heart failure) 06/19/2018 02/17/2020 Acute pain of right shoulder 11/24/2017 Left knee pain 01/07/2017 12/21/2019 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, with long-term current use of insulin 03/02/2016 08/27/2016 Chronic low back pain 09/29/2014 08/11/2015 Decubitus ulcer of sacral region, stage 2 201406/19/2018 Peripheral neuropathy 06/23/2014 06/21/2020 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 10/21/2013 06/19/2018 CKD (chronic kidney disease) stage 4, GFR 15-29 ml/min 10/21/2013 05/30/2014 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, not stated as uncontrolled(250.51) 09/30/2013 Type II 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, not stated as uncontrolled(250.60) 09/30/2013 01/06/2014 CKD stage G4/A1, GFR 15 - 29 and albumin creatinine ratio <30 mg/g 08/30/2013 05/30/2014 Abnormal gait 03/23/2012 06/21/2020 CRI (chronic renal insufficiency) 11/04/2010 02/20/2017 CRF (chronic renal failure) 07/02/201010/07 Osteoarthritis of knee 09/07/2009 7 Brachial neuritis or radiculitis NOS 04/13/2009 06/21/2020 Ulcer of heel and midfoot 10/08/20072018 ECZEMATOUS DERMATITIS NOS 06/04/20062020 STASIS DERMATITIS///LEG VARICOSITY W INFLAM 12/0602/17/2020 XEROSIS///SEBACEOUS GLAND DIS NEC 12/19/2005 02/17/2020 Closed fracture of head of radius 07/01/2005 08/20/2005 Type I (juvenile type) diabe [place] mellitus without mention of complication, not stated as uncontrolled 05/29/2009 Edema 08/02/2014 DIABETES TYPE II W NEURO MANIFESTATIONS 09/30/2013 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 Ulcer of other part of foot 12/06 Essential hypertension, benign 1 04/22/2016 Thrombocytopenia, unspecified Bilateral lower extremity edema 02/17/2020 documented as of this encounter (statuses as of 05/24/2022) [facility] History of Past illness Narrative* Problem Noted Date Resolved Date Chronic diastolic CHF (congestive heart failure) 06/19/2018 02/17/2020 Acute pain of right shoulder 11/24/2017 Left knee pain 01/07/2017 12/21/2019 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, with long-term current use of insulin 03/02/2016 08/27/2016 Chronic low back pain 09/29/2014 08/11/2015 Decubitus ulcer of sacral region, stage 2 201406/19/2018 Peripheral neuropathy 06/23/2014 06/21/2020 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 10/21/2013 06/19/2018 CKD (chronic kidney disease) stage 4, GFR 15-29 ml/min 10/21/2013 05/30/2014 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, not stated as uncontrolled(250.51) 09/30/2013 Type II 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, not stated as uncontrolled(250.60) 09/30/2013 01/06/2014 CKD stage G4/A1, GFR 15 - 29 and albumin creatinine ratio <30 mg/g 08/30/2013 05/30/2014 Abnormal gait 03/23/2012 06/21/2020 CRI (chronic renal insufficiency) 11/04/2010 02/20/2017 CRF (chronic renal failure) 07/02/201010/07 Osteoarthritis of knee 09/07/2009 7 Brachial neuritis or radiculitis NOS 04/13/2009 06/21/2020 Ulcer of heel and midfoot 10/08/20072018 ECZEMATOUS DERMATITIS NOS 06/04/20062020 STASIS DERMATITIS///LEG VARICOSITY W INFLAM 12/0602/17/2020 XEROSIS///SEBACEOUS GLAND DIS NEC 12/19/2005 02/17/2020 Closed fracture of head of radius 07/01/2005 08/20/2005 Type I (juvenile type) diabe [place] mellitus without mention of complication, not stated as uncontrolled 05/29/2009 Edema 08/02/2014 DIABETES TYPE II W NEURO MANIFESTATIONS 09/30/2013 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 Ulcer of other part of foot 12/06 Essential hypertension, benign 1 04/22/2016 Thrombocytopenia, unspecified Bilateral lower extremity edema 02/17/2020 documented as of this encounter (statuses as of 05/29/2022) [facility]03-[facility]-2019 History of Past illness Narrative* Problem Noted Date Resolved Date Chronic diastolic CHF (congestive heart failure) 06/19/2018 02/17/2020 Acute pain of right shoulder 11/24/2017 Left knee pain 01/07/2017 12/21/2019 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, with long-term current use of insulin 03/02/2016 08/27/2016 Chronic low back pain 09/29/2014 08/11/2015 Decubitus ulcer of sacral region, stage 2 201406/19/2018 Peripheral neuropathy 06/23/2014 06/21/2020 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 10/21/2013 06/19/2018 CKD (chronic kidney disease) stage 4, GFR 15-29 ml/min 10/21/2013 05/30/2014 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, not stated as uncontrolled(250.51) 09/30/2013 Type II 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, not stated as uncontrolled(250.60) 09/30/2013 01/06/2014 CKD stage G4/A1, GFR 15 - 29 and albumin creatinine ratio <30 mg/g 08/30/2013 05/30/2014 Abnormal gait 03/23/2012 06/21/2020 CRI (chronic renal insufficiency) 11/04/2010 02/20/2017 CRF (chronic renal failure) 07/02/2010 07/3 04/2010 Osteoarthritis of knee 09/07/2009 7 Brachial neuritis or radiculitis NOS 04/13/2009 06/21/2020 Ulcer of heel and midfoot 10/08/20072018 ECZEMATOUS DERMATITIS NOS 06/04/20062020 STASIS DERMATITIS///LEG VARICOSITY W INFLAM 12/0602/17/2020 XEROSIS///SEBACEOUS GLAND DIS NEC 12/19/2005 02/17/2020 Closed fracture of head of radius 07/01/2005 08/20/2005 Type I (juvenile type) diabe [place] mellitus without mention of complication, not stated as uncontrolled 05/29/2009 Edema 08/02/2014 DIABETES TYPE II W NEURO MANIFESTATIONS 09/30/2013 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 Ulcer of other part of foot 12/06 Essential hypertension, benign 1 04/22/2016 Thrombocytopenia, unspecified Bilateral lower extremity edema 02/17/2020 documented as of this encounter (statuses as of 06/04/2022) [facility]2019 History of Past illness Narrative* Problem Noted Date Resolved Date Chronic diastolic CHF (congestive heart failure) 06/19/2018 02/17/2020 Acute pain of right shoulder 11/24/2017 Left knee pain 01/07/2017 12/21/2019 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, with long-term current use of insulin 03/02/2016 08/27/2016 Chronic low back pain 09/29/2014 08/11/2015 Decubitus ulcer of sacral region, stage 2 201406/19/2018 Peripheral neuropathy 06/23/2014 06/21/2020 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 10/21/2013 06/19/2018 CKD (chronic kidney disease) stage 4, GFR 15-29 ml/min 10/21/2013 05/30/2014 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, not stated as uncontrolled(250.51) 09/30/2013 Type II 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, not stated as uncontrolled(250.60) 09/30/2013 01/06/2014 CKD stage G4/A1, GFR 15 - 29 and albumin creatinine ratio <30 mg/g 08/30/2013 05/30/2014 Abnormal gait 03/23/2012 06/21/2020 CRI (chronic renal insufficiency) 11/04/2010 02/20/2017 CRF (chronic renal failure) 07/02/2010 07/3 04/2010 Osteoarthritis of knee 09/07/2009 7 Brachial neuritis or radiculitis NOS 04/13/2009 06/21/2020 Ulcer of heel and midfoot 10/08/20072018 ECZEMATOUS DERMATITIS NOS 06/04/20062020 STASIS DERMATITIS///LEG VARICOSITY W INFLAM 12/0602/17/2020 XEROSIS///SEBACEOUS GLAND DIS NEC 12/19/2005 02/17/2020 Closed fracture of head of radius 07/01/2005 08/20/2005 Type I (juvenile type) diabe [place] mellitus without mention of complication, not stated as uncontrolled 05/29/2009 Edema 08/02/2014 DIABETES TYPE II W NEURO MANIFESTATIONS 09/30/2013 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 Ulcer of other part of foot 12/06 Essential hypertension, benign 1 04/22/2016 Thrombocytopenia, unspecified Bilateral lower extremity edema 02/17/2020 documented as of this encounter (statuses as of 06/06/2022) [facility]2019 History of Past illness Narrative* Problem Noted Date Resolved Date Chronic diastolic CHF (congestive heart failure) 06/19/2018 02/17/2020 Acute pain of right shoulder 11/24/2017 Left knee pain 01/07/2017 12/21/2019 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, with long-term current use of insulin 03/02/2016 08/27/2016 Chronic low back pain 09/29/2014 08/11/2015 Decubitus ulcer of sacral region, stage 2 201406/19/2018 Peripheral neuropathy 06/23/2014 06/21/2020 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 10/21/2013 06/19/2018 CKD (chronic kidney disease) stage 4, GFR 15-29 ml/min 10/21/2013 05/30/2014 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, not stated as uncontrolled(250.51) 09/30/2013 Type II 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, not stated as uncontrolled(250.60) 09/30/2013 01/06/2014 CKD stage G4/A1, GFR 15 - 29 and albumin creatinine ratio <30 mg/g 08/30/2013 05/30/2014 Abnormal gait 03/23/2012 06/21/2020 CRI (chronic renal insufficiency) 11/04/2010 02/20/2017 CRF (chronic renal failure) 07/02/201010/07 Osteoarthritis of knee 09/07/2009 7 Brachial neuritis or radiculitis NOS 04/13/2009 06/21/2020 Ulcer of heel and midfoot 10/08/20072018 ECZEMATOUS DERMATITIS NOS 06/04/20062020 STASIS DERMATITIS///LEG VARICOSITY W INFLAM 12/0602/17/2020 XEROSIS///SEBACEOUS GLAND DIS NEC 12/19/2005 02/17/2020 Closed fracture of head of radius 07/01/2005 08/20/2005 Type I (juvenile type) diabe [place] mellitus without mention of complication, not stated as uncontrolled 05/29/2009 Edema 08/02/2014 DIABETES TYPE II W NEURO MANIFESTATIONS 09/30/2013 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 Ulcer of other part of foot 12/06 Essential hypertension, benign 1 04/22/2016 Thrombocytopenia, unspecified Bilateral lower extremity edema 02/17/2020 documented as of this encounter (statuses as of 06/14/2022) [facility]2019 History of Past illness Narrative* Problem Noted Date Resolved Date Chronic diastolic CHF (congestive heart failure) 06/19/2018 02/17/2020 Acute pain of right shoulder 11/24/2017 Left knee pain 01/07/2017 12/21/2019 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, with long-term current use of insulin 03/02/2016 08/27/2016 Chronic low back pain 09/29/2014 08/11/2015 Decubitus ulcer of sacral region, stage 2 201406/19/2018 Peripheral neuropathy 06/23/2014 06/21/2020 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 10/21/2013 06/19/2018 CKD (chronic kidney disease) stage 4, GFR 15-29 ml/min 10/21/2013 05/30/2014 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, not stated as uncontrolled(250.51) 09/30/2013 Type II 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, not stated as uncontrolled(250.60) 09/30/2013 01/06/2014 CKD stage G4/A1, GFR 15 - 29 and albumin creatinine ratio <30 mg/g 08/30/2013 05/30/2014 Abnormal gait 03/23/2012 06/21/2020 CRI (chronic renal insufficiency) 11/04/2010 02/20/2017 CRF (chronic renal failure) 07/02/201010/07 Osteoarthritis of knee 09/07/2009 7 Brachial neuritis or radiculitis NOS 04/13/2009 06/21/2020 Ulcer of heel and midfoot 10/08/20072018 ECZEMATOUS DERMATITIS NOS 06/04/20062020 STASIS DERMATITIS///LEG VARICOSITY W INFLAM 12/0602/17/2020 XEROSIS///SEBACEOUS GLAND DIS NEC 12/19/2005 02/17/2020 Closed fracture of head of radius 07/01/2005 08/20/2005 Type I (juvenile type) diabe [place] mellitus without mention of complication, not stated as uncontrolled 05/29/2009 Edema 08/02/2014 DIABETES TYPE II W NEURO MANIFESTATIONS 09/30/2013 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 Ulcer of other part of foot 12/06 Essential hypertension, benign 1 04/22/2016 Thrombocytopenia, unspecified Bilateral lower extremity edema 02/17/2020 documented as of this encounter (statuses as of 06/17/2022) [facility] History of Past illness Narrative* Problem Noted Date Resolved Date Chronic diastolic CHF (congestive heart failure) 06/19/2018 02/17/2020 Acute pain of right shoulder 11/24/2017 Left knee pain 01/07/2017 12/21/2019 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, with long-term current use of insulin 03/02/2016 08/27/2016 Chronic low back pain 09/29/2014 08/11/2015 Decubitus ulcer of sacral region, stage 2 201406/19/2018 Peripheral neuropathy 06/23/2014 06/21/2020 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 10/21/2013 06/19/2018 CKD (chronic kidney disease) stage 4, GFR 15-29 ml/min 10/21/2013 05/30/2014 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, not stated as uncontrolled(250.51) 09/30/2013 Type II 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, not stated as uncontrolled(250.60) 09/30/2013 01/06/2014 CKD stage G4/A1, GFR 15 - 29 and albumin creatinine ratio <30 mg/g 08/30/2013 05/30/2014 Abnormal gait 03/23/2012 06/21/2020 CRI (chronic renal insufficiency) 11/04/2010 02/20/2017 CRF (chronic renal failure) 07/02/201010/07 Osteoarthritis of knee 09/07/2009 7 Brachial neuritis or radiculitis NOS 04/13/2009 06/21/2020 Ulcer of heel and midfoot 10/08/20072018 ECZEMATOUS DERMATITIS NOS 06/04/20062020 STASIS DERMATITIS///LEG VARICOSITY W INFLAM 12/0602/17/2020 XEROSIS///SEBACEOUS GLAND DIS NEC 12/19/2005 02/17/2020 Closed fracture of head of radius 07/01/2005 08/20/2005 Type I (juvenile type) diabe [place] mellitus without mention of complication, not stated as uncontrolled 05/29/2009 Edema 08/02/2014 DIABETES TYPE II W NEURO MANIFESTATIONS 09/30/2013 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 Ulcer of other part of foot 12/06 Essential hypertension, benign 1 04/22/2016 Thrombocytopenia, unspecified Bilateral lower extremity edema 02/17/2020 documented as of this encounter (statuses as of 06/26/2022) [facility]2019 History of Past illness Narrative* Problem Noted Date Resolved Date Chronic diastolic CHF (congestive heart failure) 06/19/2018 02/17/2020 Acute pain of right shoulder 11/24/2017 Left knee pain 01/07/2017 12/21/2019 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, with long-term current use of insulin 03/02/2016 08/27/2016 Chronic low back pain 09/29/2014 08/11/2015 Decubitus ulcer of sacral region, stage 2 201406/19/2018 Peripheral neuropathy 06/23/2014 06/21/2020 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 10/21/2013 06/19/2018 CKD (chronic kidney disease) stage 4, GFR 15-29 ml/min 10/21/2013 05/30/2014 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, not stated as uncontrolled(250.51) 09/30/2013 Type II 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, not stated as uncontrolled(250.60) 09/30/2013 01/06/2014 CKD stage G4/A1, GFR 15 - 29 and albumin creatinine ratio <30 mg/g 08/30/2013 05/30/2014 Abnormal gait 03/23/2012 06/21/2020 CRI (chronic renal insufficiency) 11/04/2010 02/20/2017 CRF (chronic renal failure) 07/02/201010/07 Osteoarthritis of knee 09/07/2009 7 Brachial neuritis or radiculitis NOS 04/13/2009 06/21/2020 Ulcer of heel and midfoot 10/08/20072018 ECZEMATOUS DERMATITIS NOS 06/04/20062020 STASIS DERMATITIS///LEG VARICOSITY W INFLAM 12/0602/17/2020 XEROSIS///SEBACEOUS GLAND DIS NEC 12/19/2005 02/17/2020 Closed fracture of head of radius 07/01/2005 08/20/2005 Type I (juvenile type) diabe [place] mellitus without mention of complication, not stated as uncontrolled 05/29/2009 Edema 08/02/2014 DIABETES TYPE II W NEURO MANIFESTATIONS 09/30/2013 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 Ulcer of other part of foot 12/06 Essential hypertension, benign 1 04/22/2016 Thrombocytopenia, unspecified Bilateral lower extremity edema 02/17/2020 documented as of this encounter (statuses as of 06/26/2022) [facility]2019 History of Past illness Narrative* Problem Noted Date Resolved Date Chronic diastolic CHF (congestive heart failure) 06/19/2018 02/17/2020 Acute pain of right shoulder 11/24/2017 Left knee pain 01/07/2017 12/21/2019 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, with long-term current use of insulin 03/02/2016 08/27/2016 Chronic low back pain 09/29/2014 08/11/2015 Decubitus ulcer of sacral region, stage 2 201406/19/2018 Peripheral neuropathy 06/23/2014 06/21/2020 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 10/21/2013 06/19/2018 CKD (chronic kidney disease) stage 4, GFR 15-29 ml/min 10/21/2013 05/30/2014 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, not stated as uncontrolled(250.51) 09/30/2013 Type II 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, not stated as uncontrolled(250.60) 09/30/2013 01/06/2014 CKD stage G4/A1, GFR 15 - 29 and albumin creatinine ratio <30 mg/g 08/30/2013 05/30/2014 Abnormal gait 03/23/2012 06/21/2020 CRI (chronic renal insufficiency) 11/04/2010 02/20/2017 CRF (chronic renal failure) 07/02/201010/07 Osteoarthritis of knee 09/07/2009 7 Brachial neuritis or radiculitis NOS 04/13/2009 06/21/2020 Ulcer of heel and midfoot 10/08/20072018 ECZEMATOUS DERMATITIS NOS 06/04/20062020 STASIS DERMATITIS///LEG VARICOSITY W INFLAM 12/0602/17/2020 XEROSIS///SEBACEOUS GLAND DIS NEC 12/19/2005 02/17/2020 Closed fracture of head of radius 07/01/2005 08/20/2005 Type I (juvenile type) diabe [place] mellitus without mention of complication, not stated as uncontrolled 05/29/2009 Edema 08/02/2014 DIABETES TYPE II W NEURO MANIFESTATIONS 09/30/2013 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 Ulcer of other part of foot 12/06 Essential hypertension, benign 1 04/22/2016 Thrombocytopenia, unspecified Bilateral lower extremity edema 02/17/2020 documented as of this encounter (statuses as of 07/01/2022) [facility]2019 History of Past illness Narrative* Problem Noted Date Resolved Date Chronic diastolic CHF (congestive heart failure) 06/19/2018 02/17/2020 Acute pain of right shoulder 11/24/2017 Left knee pain 01/07/2017 12/21/2019 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, with long-term current use of insulin 03/02/2016 08/27/2016 Chronic low back pain 09/29/2014 08/11/2015 Decubitus ulcer of sacral region, stage 2 201406/19/2018 Peripheral neuropathy 06/23/2014 06/21/2020 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 10/21/2013 06/19/2018 CKD (chronic kidney disease) stage 4, GFR 15-29 ml/min 10/21/2013 05/30/2014 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, not stated as uncontrolled(250.51) 09/30/2013 Type II 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, not stated as uncontrolled(250.60) 09/30/2013 01/06/2014 CKD stage G4/A1, GFR 15 - 29 and albumin creatinine ratio <30 mg/g 08/30/2013 05/30/2014 Abnormal gait 03/23/2012 06/21/2020 CRI (chronic renal insufficiency) 11/04/2010 02/20/2017 CRF (chronic renal failure) 07/02/201010/07 Osteoarthritis of knee 09/07/2009 7 Brachial neuritis or radiculitis NOS 04/13/2009 06/21/2020 Ulcer of heel and midfoot 10/08/20072018 ECZEMATOUS DERMATITIS NOS 06/04/20062020 STASIS DERMATITIS///LEG VARICOSITY W INFLAM 12/0602/17/2020 XEROSIS///SEBACEOUS GLAND DIS NEC 12/19/2005 02/17/2020 Closed fracture of head of radius 07/01/2005 08/20/2005 Type I (juvenile type) diabe [place] mellitus without mention of complication, not stated as uncontrolled 05/29/2009 Edema 08/02/2014 DIABETES TYPE II W NEURO MANIFESTATIONS 09/30/2013 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 Ulcer of other part of foot 12/06 Essential hypertension, benign 1 04/22/2016 Thrombocytopenia, unspecified Bilateral lower extremity edema 02/17/2020 documented as of this encounter (statuses as of 07/03/2022) [facility] History of Past illness Narrative* Problem Noted Date Resolved Date Chronic diastolic CHF (congestive heart failure) 06/19/2018 02/17/2020 Acute pain of right shoulder 11/24/2017 Left knee pain 01/07/2017 12/21/2019 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, with long-term current use of insulin 03/02/2016 08/27/2016 Chronic low back pain 09/29/2014 08/11/2015 Decubitus ulcer of sacral region, stage 2 201406/19/2018 Peripheral neuropathy 06/23/2014 06/21/2020 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 10/21/2013 06/19/2018 CKD (chronic kidney disease) stage 4, GFR 15-29 ml/min 10/21/2013 05/30/2014 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, not stated as uncontrolled(250.51) 09/30/2013 Type II 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, not stated as uncontrolled(250.60) 09/30/2013 01/06/2014 CKD stage G4/A1, GFR 15 - 29 and albumin creatinine ratio <30 mg/g 08/30/2013 05/30/2014 Abnormal gait 03/23/2012 06/21/2020 CRI (chronic renal insufficiency) 11/04/2010 02/20/2017 CRF (chronic renal failure) 07/02/201010/07 Osteoarthritis of knee 09/07/2009 7 Brachial neuritis or radiculitis NOS 04/13/2009 06/21/2020 Ulcer of heel and midfoot 10/08/20072018 ECZEMATOUS DERMATITIS NOS 06/04/20062020 STASIS DERMATITIS///LEG VARICOSITY W INFLAM 12/0602/17/2020 XEROSIS///SEBACEOUS GLAND DIS NEC 12/19/2005 02/17/2020 Closed fracture of head of radius 07/01/2005 08/20/2005 Type I (juvenile type) diabe [place] mellitus without mention of complication, not stated as uncontrolled 05/29/2009 Edema 08/02/2014 DIABETES TYPE II W NEURO MANIFESTATIONS 09/30/2013 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 Ulcer of other part of foot 12/06 Essential hypertension, benign 1 04/22/2016 Thrombocytopenia, unspecified Bilateral lower extremity edema 02/17/2020 documented as of this encounter (statuses as of 07/31/2022) [facility] History of Past illness Narrative* Problem Noted Date Resolved Date Chronic diastolic CHF (congestive heart failure) 06/19/2018 02/17/2020 Acute pain of right shoulder 11/24/2017 Left knee pain 01/07/2017 12/21/2019 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, with long-term current use of insulin 03/02/2016 08/27/2016 Chronic low back pain 09/29/2014 08/11/2015 Decubitus ulcer of sacral region, stage 2 201406/19/2018 Peripheral neuropathy 06/23/2014 06/21/2020 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 10/21/2013 06/19/2018 CKD (chronic kidney disease) stage 4, GFR 15-29 ml/min 10/21/2013 05/30/2014 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, not stated as uncontrolled(250.51) 09/30/2013 Type II 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, not stated as uncontrolled(250.60) 09/30/2013 01/06/2014 CKD stage G4/A1, GFR 15 - 29 and albumin creatinine ratio <30 mg/g 08/30/2013 05/30/2014 Abnormal gait 03/23/2012 06/21/2020 CRI (chronic renal insufficiency) 11/04/2010 02/20/2017 CRF (chronic renal failure) 07/02/201010/07 Osteoarthritis of knee 09/07/2009 7 Brachial neuritis or radiculitis NOS 04/13/2009 06/21/2020 Ulcer of heel and midfoot 10/08/20072018 ECZEMATOUS DERMATITIS NOS 06/04/20062020 STASIS DERMATITIS///LEG VARICOSITY W INFLAM 12/0602/17/2020 XEROSIS///SEBACEOUS GLAND DIS NEC 12/19/2005 02/17/2020 Closed fracture of head of radius 07/01/2005 08/20/2005 Type I (juvenile type) diabe [place] mellitus without mention of complication, not stated as uncontrolled 05/29/2009 Edema 08/02/2014 DIABETES TYPE II W NEURO MANIFESTATIONS 09/30/2013 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 Ulcer of other part of foot 12/06 Essential hypertension, benign 1 04/22/2016 Thrombocytopenia, unspecified Bilateral lower extremity edema 02/17/2020 documented as of this encounter (statuses as of 08/01/2022) [facility] History of Past illness Narrative* Problem Noted Date Resolved Date Chronic diastolic CHF (congestive heart failure) 06/19/2018 02/17/2020 Acute pain of right shoulder 11/24/2017 Left knee pain 01/07/2017 12/21/2019 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, with long-term current use of insulin 03/02/2016 08/27/2016 Chronic low back pain 09/29/2014 08/11/2015 Decubitus ulcer of sacral region, stage 2 201406/19/2018 Peripheral neuropathy 06/23/2014 06/21/2020 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 10/21/2013 06/19/2018 CKD (chronic kidney disease) stage 4, GFR 15-29 ml/min 10/21/2013 05/30/2014 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, not stated as uncontrolled(250.51) 09/30/2013 Type II 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, not stated as uncontrolled(250.60) 09/30/2013 01/06/2014 CKD stage G4/A1, GFR 15 - 29 and albumin creatinine ratio <30 mg/g 08/30/2013 05/30/2014 Abnormal gait 03/23/2012 06/21/2020 CRI (chronic renal insufficiency) 11/04/2010 02/20/2017 CRF (chronic renal failure) 07/02/201010/07 Osteoarthritis of knee 09/07/2009 7 Brachial neuritis or radiculitis NOS 04/13/2009 06/21/2020 Ulcer of heel and midfoot 10/08/20072018 ECZEMATOUS DERMATITIS NOS 06/04/20062020 STASIS DERMATITIS///LEG VARICOSITY W INFLAM 12/0602/17/2020 XEROSIS///SEBACEOUS GLAND DIS NEC 12/19/2005 02/17/2020 Closed fracture of head of radius 07/01/2005 08/20/2005 Type I (juvenile type) diabe [place] mellitus without mention of complication, not stated as uncontrolled 05/29/2009 Edema 08/02/2014 DIABETES TYPE II W NEURO MANIFESTATIONS 09/30/2013 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 Ulcer of other part of foot 12/06 Essential hypertension, benign 1 04/22/2016 Thrombocytopenia, unspecified Bilateral lower extremity edema 02/17/2020 documented as of this encounter (statuses as of 08/07/2022) [facility]03-[facility]2019 History of Past illness Narrative* Problem Noted Date Resolved Date Chronic diastolic CHF (congestive heart failure) 06/19/2018 02/17/2020 Acute pain of right shoulder 11/24/2017 Left knee pain 01/07/2017 12/21/2019 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, with long-term current use of insulin 03/02/2016 08/27/2016 Chronic low back pain 09/29/2014 08/11/2015 Decubitus ulcer of sacral region, stage 2 201406/19/2018 Peripheral neuropathy 06/23/2014 06/21/2020 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 10/21/2013 06/19/2018 CKD (chronic kidney disease) stage 4, GFR 15-29 ml/min 10/21/2013 05/30/2014 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, not stated as uncontrolled(250.51) 09/30/2013 Type II 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, not stated as uncontrolled(250.60) 09/30/2013 01/06/2014 CKD stage G4/A1, GFR 15 - 29 and albumin creatinine ratio <30 mg/g 08/30/2013 05/30/2014 Abnormal gait 03/23/2012 06/21/2020 CRI (chronic renal insufficiency) 11/04/2010 02/20/2017 CRF (chronic renal failure) 07/02/201010/07 Osteoarthritis of knee 09/07/2009 7 Brachial neuritis or radiculitis NOS 04/13/2009 06/21/2020 Ulcer of heel and midfoot 10/08/20072018 ECZEMATOUS DERMATITIS NOS 06/04/20062020 STASIS DERMATITIS///LEG VARICOSITY W INFLAM 12/0602/17/2020 XEROSIS///SEBACEOUS GLAND DIS NEC 12/19/2005 02/17/2020 Closed fracture of head of radius 07/01/2005 08/20/2005 Type I (juvenile type) diabe [place] mellitus without mention of complication, not stated as uncontrolled 05/29/2009 Edema 08/02/2014 DIABETES TYPE II W NEURO MANIFESTATIONS 09/30/2013 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 Ulcer of other part of foot 12/06 Essential hypertension, benign 1 04/22/2016 Thrombocytopenia, unspecified Bilateral lower extremity edema 02/17/2020 documented as of this encounter (statuses as of 08/14/2022) [facility]2019 History of Past illness Narrative* Problem Noted Date Resolved Date Chronic diastolic CHF (congestive heart failure) 06/19/2018 02/17/2020 Acute pain of right shoulder 11/24/2017 Left knee pain 01/07/2017 12/21/2019 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, with long-term current use of insulin 03/02/2016 08/27/2016 Chronic low back pain 09/29/2014 08/11/2015 Decubitus ulcer of sacral region, stage 2 201406/19/2018 Peripheral neuropathy 06/23/2014 06/21/2020 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 10/21/2013 06/19/2018 CKD (chronic kidney disease) stage 4, GFR 15-29 ml/min 10/21/2013 05/30/2014 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, not stated as uncontrolled(250.51) 09/30/2013 Type II 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, not stated as uncontrolled(250.60) 09/30/2013 01/06/2014 CKD stage G4/A1, GFR 15 - 29 and albumin creatinine ratio <30 mg/g 08/30/2013 05/30/2014 Abnormal gait 03/23/2012 06/21/2020 CRI (chronic renal insufficiency) 11/04/2010 02/20/2017 CRF (chronic renal failure) 07/02/201010/07 Osteoarthritis of knee 09/07/2009 7 Brachial neuritis or radiculitis NOS 04/13/2009 06/21/2020 Ulcer of heel and midfoot 10/08/20072018 ECZEMATOUS DERMATITIS NOS 06/04/20062020 STASIS DERMATITIS///LEG VARICOSITY W INFLAM 12/0602/17/2020 XEROSIS///SEBACEOUS GLAND DIS NEC 12/19/2005 02/17/2020 Closed fracture of head of radius 07/01/2005 08/20/2005 Type I (juvenile type) diabe [place] mellitus without mention of complication, not stated as uncontrolled 05/29/2009 Edema 08/02/2014 DIABETES TYPE II W NEURO MANIFESTATIONS 09/30/2013 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 Ulcer of other part of foot 12/06 Essential hypertension, benign 1 04/22/2016 Thrombocytopenia, unspecified Bilateral lower extremity edema 02/17/2020 documented as of this encounter (statuses as of 08/19/2022) [facility]2019 History of Past illness Narrative* Problem Noted Date Resolved Date Chronic diastolic CHF (congestive heart failure) 06/19/2018 02/17/2020 Acute pain of right shoulder 11/24/2017 Left knee pain 01/07/2017 12/21/2019 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, with long-term current use of insulin 03/02/2016 08/27/2016 Chronic low back pain 09/29/2014 08/11/2015 Decubitus ulcer of sacral region, stage 2 201406/19/2018 Peripheral neuropathy 06/23/2014 06/21/2020 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 10/21/2013 06/19/2018 CKD (chronic kidney disease) stage 4, GFR 15-29 ml/min 10/21/2013 05/30/2014 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, not stated as uncontrolled(250.51) 09/30/2013 Type II 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, not stated as uncontrolled(250.60) 09/30/2013 01/06/2014 CKD stage G4/A1, GFR 15 - 29 and albumin creatinine ratio <30 mg/g 08/30/2013 05/30/2014 Abnormal gait 03/23/2012 06/21/2020 CRI (chronic renal insufficiency) 11/04/2010 02/20/2017 CRF (chronic renal failure) 07/02/201010/07 Osteoarthritis of knee 09/07/2009 7 Brachial neuritis or radiculitis NOS 04/13/2009 06/21/2020 Ulcer of heel and midfoot 10/08/20072018 ECZEMATOUS DERMATITIS NOS 06/04/20062020 STASIS DERMATITIS///LEG VARICOSITY W INFLAM 12/0602/17/2020 XEROSIS///SEBACEOUS GLAND DIS NEC 12/19/2005 02/17/2020 Closed fracture of head of radius 07/01/2005 08/20/2005 Type I (juvenile type) diabe [place] mellitus without mention of complication, not stated as uncontrolled 05/29/2009 Edema 08/02/2014 DIABETES TYPE II W NEURO MANIFESTATIONS 09/30/2013 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 Ulcer of other part of foot 12/06 Essential hypertension, benign 1 04/22/2016 Thrombocytopenia, unspecified Bilateral lower extremity edema 02/17/2020 documented as of this encounter (statuses as of 09/03/2022) [facility]2019 History of Past illness Narrative* Problem Noted Date Resolved Date Chronic diastolic CHF (congestive heart failure) 06/19/2018 02/17/2020 Acute pain of right shoulder 11/24/2017 Left knee pain 01/07/2017 12/21/2019 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, with long-term current use of insulin 03/02/2016 08/27/2016 Chronic low back pain 09/29/2014 08/11/2015 Decubitus ulcer of sacral region, stage 2 201406/19/2018 Peripheral neuropathy 06/23/2014 06/21/2020 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 10/21/2013 06/19/2018 CKD (chronic kidney disease) stage 4, GFR 15-29 ml/min 10/21/2013 05/30/2014 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, not stated as uncontrolled(250.51) 09/30/2013 Type II 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, not stated as uncontrolled(250.60) 09/30/2013 01/06/2014 CKD stage G4/A1, GFR 15 - 29 and albumin creatinine ratio <30 mg/g 08/30/2013 05/30/2014 Abnormal gait 03/23/2012 06/21/2020 CRI (chronic renal insufficiency) 11/04/2010 02/20/2017 CRF (chronic renal failure) 07/02/201010/07 Osteoarthritis of knee 09/07/2009 7 Brachial neuritis or radiculitis NOS 04/13/2009 06/21/2020 Ulcer of heel and midfoot 10/08/20072018 ECZEMATOUS DERMATITIS NOS 06/04/20062020 STASIS DERMATITIS///LEG VARICOSITY W INFLAM 12/0602/17/2020 XEROSIS///SEBACEOUS GLAND DIS NEC 12/19/2005 02/17/2020 Closed fracture of head of radius 07/01/2005 08/20/2005 Type I (juvenile type) diabe [place] mellitus without mention of complication, not stated as uncontrolled 05/29/2009 Edema 08/02/2014 DIABETES TYPE II W NEURO MANIFESTATIONS 09/30/2013 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 Ulcer of other part of foot 12/06 Essential hypertension, benign 1 04/22/2016 Thrombocytopenia, unspecified Bilateral lower extremity edema 02/17/2020 documented as of this encounter (statuses as of 09/12/2022) [facility]2019 History of Past illness Narrative* Problem Noted Date Resolved Date Chronic diastolic CHF (congestive heart failure) 06/19/2018 02/17/2020 Acute pain of right shoulder 11/24/2017 Left knee pain 01/07/2017 12/21/2019 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, with long-term current use of insulin 03/02/2016 08/27/2016 Chronic low back pain 09/29/2014 08/11/2015 Decubitus ulcer of sacral region, stage 2 201406/19/2018 Peripheral neuropathy 06/23/2014 06/21/2020 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 10/21/2013 06/19/2018 CKD (chronic kidney disease) stage 4, GFR 15-29 ml/min 10/21/2013 05/30/2014 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, not stated as uncontrolled(250.51) 09/30/2013 Type II 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, not stated as uncontrolled(250.60) 09/30/2013 01/06/2014 CKD stage G4/A1, GFR 15 - 29 and albumin creatinine ratio <30 mg/g 08/30/2013 05/30/2014 Abnormal gait 03/23/2012 06/21/2020 CRI (chronic renal insufficiency) 11/04/2010 02/20/2017 CRF (chronic renal failure) 07/02/201010/07 Osteoarthritis of knee 09/07/2009 7 Brachial neuritis or radiculitis NOS 04/13/2009 06/21/2020 Ulcer of heel and midfoot 10/08/20072018 ECZEMATOUS DERMATITIS NOS 06/04/20062020 STASIS DERMATITIS///LEG VARICOSITY W INFLAM 12/0602/17/2020 XEROSIS///SEBACEOUS GLAND DIS NEC 12/19/2005 02/17/2020 Closed fracture of head of radius 07/01/2005 08/20/2005 Type I (juvenile type) diabe [place] mellitus without mention of complication, not stated as uncontrolled 05/29/2009 Edema 08/02/2014 DIABETES TYPE II W NEURO MANIFESTATIONS 09/30/2013 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 Ulcer of other part of foot 12/06 Essential hypertension, benign 1 04/22/2016 Thrombocytopenia, unspecified Bilateral lower extremity edema 02/17/2020 documented as of this encounter (statuses as of 10/03/2022) [facility]2019 History of Past illness Narrative* Problem Noted Date Resolved Date Chronic diastolic CHF (congestive heart failure) 06/19/2018 02/17/2020 Acute pain of right shoulder 11/24/2017 Left knee pain 01/07/2017 12/21/2019 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, with long-term current use of insulin 03/02/2016 08/27/2016 Chronic low back pain 09/29/2014 08/11/2015 Decubitus ulcer of sacral region, stage 2 201406/19/2018 Peripheral neuropathy 06/23/2014 06/21/2020 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 10/21/2013 06/19/2018 CKD (chronic kidney disease) stage 4, GFR 15-29 ml/min 10/21/2013 05/30/2014 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, not stated as uncontrolled(250.51) 09/30/2013 Type II 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, not stated as uncontrolled(250.60) 09/30/2013 01/06/2014 CKD stage G4/A1, GFR 15 - 29 and albumin creatinine ratio <30 mg/g 08/30/2013 05/30/2014 Abnormal gait 03/23/2012 06/21/2020 CRI (chronic renal insufficiency) 11/04/2010 02/20/2017 CRF (chronic renal failure) 07/02/201010/07 Osteoarthritis of knee 09/07/2009 7 Brachial neuritis or radiculitis NOS 04/13/2009 06/21/2020 Ulcer of heel and midfoot 10/08/20072018 ECZEMATOUS DERMATITIS NOS 06/04/20062020 STASIS DERMATITIS///LEG VARICOSITY W INFLAM 12/0602/17/2020 XEROSIS///SEBACEOUS GLAND DIS NEC 12/19/2005 02/17/2020 Closed fracture of head of radius 07/01/2005 08/20/2005 Type I (juvenile type) diabe [place] mellitus without mention of complication, not stated as uncontrolled 05/29/2009 Edema 08/02/2014 DIABETES TYPE II W NEURO MANIFESTATIONS 09/30/2013 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 Ulcer of other part of foot 12/06 Essential hypertension, benign 1 04/22/2016 Thrombocytopenia, unspecified Bilateral lower extremity edema 02/17/2020 documented as of this encounter (statuses as of 10/04/2022) [facility]2019 History of Past illness Narrative* Problem Noted Date Resolved Date Chronic diastolic CHF (congestive heart failure) 06/19/2018 02/17/2020 Acute pain of right shoulder 11/24/2017 Left knee pain 01/07/2017 12/21/2019 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, with long-term current use of insulin 03/02/2016 08/27/2016 Chronic low back pain 09/29/2014 08/11/2015 Decubitus ulcer of sacral region, stage 2 201406/19/2018 Peripheral neuropathy 06/23/2014 06/21/2020 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 10/21/2013 06/19/2018 CKD (chronic kidney disease) stage 4, GFR 15-29 ml/min 10/21/2013 05/30/2014 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, not stated as uncontrolled(250.51) 09/30/2013 Type II 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, not stated as uncontrolled(250.60) 09/30/2013 01/06/2014 CKD stage G4/A1, GFR 15 - 29 and albumin creatinine ratio <30 mg/g 08/30/2013 05/30/2014 Abnormal gait 03/23/2012 06/21/2020 CRI (chronic renal insufficiency) 11/04/2010 02/20/2017 CRF (chronic renal failure) 07/02/201010/07 Osteoarthritis of knee 09/07/2009 7 Brachial neuritis or radiculitis NOS 04/13/2009 06/21/2020 Ulcer of heel and midfoot 10/08/20072018 ECZEMATOUS DERMATITIS NOS 06/04/20062020 STASIS DERMATITIS///LEG VARICOSITY W INFLAM 12/0602/17/2020 XEROSIS///SEBACEOUS GLAND DIS NEC 12/19/2005 02/17/2020 Closed fracture of head of radius 07/01/2005 08/20/2005 Type I (juvenile type) diabe [place] mellitus without mention of complication, not stated as uncontrolled 05/29/2009 Edema 08/02/2014 DIABETES TYPE II W NEURO MANIFESTATIONS 09/30/2013 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 Ulcer of other part of foot 12/06 Essential hypertension, benign 1 04/22/2016 Thrombocytopenia, unspecified Bilateral lower extremity edema 02/17/2020 documented as of this encounter (statuses as of 10/09/2022) [facility]2019 History of Past illness Narrative* Problem Noted Date Diagnosed Date Resolved Date Chronic diastolic CHF (conge stive heart failure) 06/19/2018 02/17/2020 Acute pain of right shoulder 11/24/2017 12/21/2019 Left knee pain 01/07/2017 12/21/2019 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, with long-term current use of insulin 03/02/2016 017 Chronic low back pain 09/29/20142015 Decubitus ulcer of sacral region, stage 2 09/29/2014 06/19/2018 Peripheral neuropathy 06/23/20142020 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 10/21/2013 06/19/2018 CKD (chronic kidney disease) stage 4, GFR 15-29 ml/min 10/21/2013 05/30/2014 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, not stated as uncontrolled(250.51) 09/30/2013 10/21/2013 Type II 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, not stated as uncontrolled(250.60) 09/30/2013 01/06/2014 CKD stage G4/A1, GFR 15 - 29 and albumin creatinine ratio <30 mg/g 08/30/2013 05/30/2014 Abnormal gait 03/23/2012 06/21/2020 CRI (chronic renal insufficiency) 11/04/2010 02/20/2017 CRF (chronic renal failure) 07/02/2010 11/04/2010 Osteoarthritis of knee 09/07/200902/20 Brachial neuritis or radiculitis NOS 04/13/2009 06/21/2020 Ulcer of heel and midfoot 10/08/2007 ECZEMATOUS DERMATITIS NOS 06/04/2006 STASIS DERMATITIS///LEG VARICOSITY W INFLAM 12/19/2005 02/17/2020 XEROSIS///SEBACEOUS GLAND DIS NEC 12/19/2005 02/17/2020 Closed fracture of head of radius 07/01/2005 08/20/2005 Type I (juvenile type) diabe [place] mellitus without mention of complication, not stated as uncontrolled 05/29/2009 Edema 08/02/2014 DIABETES TYPE II W NEURO MANIFESTATIONS 09/30/2013 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 Ulcer of other part of foot 12/21/2019 Essential hypertension, benign 02/20/2017 Thrombocytopenia, unspecified 02/17/2020 Bilateral lower extremity edema 02/17/2020 documented as of this encounter (statuses as of 10/31/2022) [facility]2019 History of Past illness Narrative* Problem Noted Date Diagnosed Date Resolved Date Chronic diastolic CHF (conge stive heart failure) 06/19/2018 02/17/2020 Acute pain of right shoulder 11/24/2017 12/21/2019 Left knee pain 01/07/2017 12/21/2019 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, with long-term current use of insulin 03/02/2016 017 Chronic low back pain 09/29/20142015 Decubitus ulcer of sacral region, stage 2 09/29/2014 06/19/2018 Peripheral neuropathy 06/23/20142020 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 10/21/2013 06/19/2018 CKD (chronic kidney disease) stage 4, GFR 15-29 ml/min 10/21/2013 05/30/2014 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, not stated as uncontrolled(250.51) 09/30/2013 10/21/2013 Type II 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, not stated as uncontrolled(250.60) 09/30/2013 01/06/2014 CKD stage G4/A1, GFR 15 - 29 and albumin creatinine ratio <30 mg/g 08/30/2013 05/30/2014 Abnormal gait 03/23/2012 06/21/2020 CRI (chronic renal insufficiency) 11/04/2010 02/20/2017 CRF (chronic renal failure) 07/02/2010 11/04/2010 Osteoarthritis of knee 09/07/200902/20 Brachial neuritis or radiculitis NOS 04/13/2009 06/21/2020 Ulcer of heel and midfoot 10/08/2007 ECZEMATOUS DERMATITIS NOS 06/04/2006 STASIS DERMATITIS///LEG VARICOSITY W INFLAM 12/19/2005 02/17/2020 XEROSIS///SEBACEOUS GLAND DIS NEC 12/19/2005 02/17/2020 Closed fracture of head of radius 07/01/2005 08/20/2005 Type I (juvenile type) diabe [place] mellitus without mention of complication, not stated as uncontrolled 05/29/2009 Edema 08/02/2014 DIABETES TYPE II W NEURO MANIFESTATIONS 09/30/2013 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 Ulcer of other part of foot 12/21/2019 Essential hypertension, benign 02/20/2017 Thrombocytopenia, unspecified 02/17/2020 Bilateral lower extremity edema 02/17/2020 documented as of this encounter (statuses as of 11/08/2022) [facility]2019 History of Past illness Narrative* Problem Noted Date Diagnosed Date Resolved Date Chronic diastolic CHF (conge stive heart failure) 06/19/2018 02/17/2020 Acute pain of right shoulder 11/24/2017 12/21/2019 Left knee pain 01/07/2017 12/21/2019 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, with long-term current use of insulin 03/02/2016 017 Chronic low back pain 09/29/20142015 Decubitus ulcer of sacral region, stage 2 09/29/2014 06/19/2018 Peripheral neuropathy 06/23/20142020 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 10/21/2013 06/19/2018 CKD (chronic kidney disease) stage 4, GFR 15-29 ml/min 10/21/2013 05/30/2014 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, not stated as uncontrolled(250.51) 09/30/2013 10/21/2013 Type II 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, not stated as uncontrolled(250.60) 09/30/2013 01/06/2014 CKD stage G4/A1, GFR 15 - 29 and albumin creatinine ratio <30 mg/g 08/30/2013 05/30/2014 Abnormal gait 03/23/2012 06/21/2020 CRI (chronic renal insufficiency) 11/04/2010 02/20/2017 CRF (chronic renal failure) 07/02/2010 11/04/2010 Osteoarthritis of knee 09/07/200902/20 Brachial neuritis or radiculitis NOS 04/13/2009 06/21/2020 Ulcer of heel and midfoot 10/08/2007 ECZEMATOUS DERMATITIS NOS 06/04/2006 STASIS DERMATITIS///LEG VARICOSITY W INFLAM 12/19/2005 02/17/2020 XEROSIS///SEBACEOUS GLAND DIS NEC 12/19/2005 02/17/2020 Closed fracture of head of radius 07/01/2005 08/20/2005 Type I (juvenile type) diabe [place] mellitus without mention of complication, not stated as uncontrolled 05/29/2009 Edema 08/02/2014 DIABETES TYPE II W NEURO MANIFESTATIONS 09/30/2013 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 Ulcer of other part of foot 12/21/2019 Essential hypertension, benign 02/20/2017 Thrombocytopenia, unspecified 02/17/2020 Bilateral lower extremity edema 02/17/2020 documented as of this encounter (statuses as of 11/13/2022) [facility] History of Past illness Narrative* Problem Noted Date Diagnosed Date Resolved Date Chronic diastolic CHF (conge stive heart failure) 06/19/2018 02/17/2020 Acute pain of right shoulder 11/24/2017 12/21/2019 Left knee pain 01/07/2017 12/21/2019 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, with long-term current use of insulin 03/02/2016 017 Chronic low back pain 09/29/20142015 Decubitus ulcer of sacral region, stage 2 09/29/2014 06/19/2018 Peripheral neuropathy 06/23/20142020 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 10/21/2013 06/19/2018 CKD (chronic kidney disease) stage 4, GFR 15-29 ml/min 10/21/2013 05/30/2014 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, not stated as uncontrolled(250.51) 09/30/2013 10/21/2013 Type II 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, not stated as uncontrolled(250.60) 09/30/2013 01/06/2014 CKD stage G4/A1, GFR 15 - 29 and albumin creatinine ratio <30 mg/g 08/30/2013 05/30/2014 Abnormal gait 03/23/2012 06/21/2020 CRI (chronic renal insufficiency) 11/04/2010 02/20/2017 CRF (chronic renal failure) 07/02/2010 11/04/2010 Osteoarthritis of knee 09/07/200902/20 Brachial neuritis or radiculitis NOS 04/13/2009 06/21/2020 Ulcer of heel and midfoot 10/08/2007 ECZEMATOUS DERMATITIS NOS 06/04/2006 STASIS DERMATITIS///LEG VARICOSITY W INFLAM 12/19/2005 02/17/2020 XEROSIS///SEBACEOUS GLAND DIS NEC 12/19/2005 02/17/2020 Closed fracture of head of radius 07/01/2005 08/20/2005 Type I (juvenile type) diabe [place] mellitus without mention of complication, not stated as uncontrolled 05/29/2009 Edema 08/02/2014 DIABETES TYPE II W NEURO MANIFESTATIONS 09/30/2013 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 Ulcer of other part of foot 12/21/2019 Essential hypertension, benign 02/20/2017 Thrombocytopenia, unspecified 02/17/2020 Bilateral lower extremity edema 02/17/2020 documented as of this encounter (statuses as of 12/03/2022) [facility] History of Past illness Narrative* Problem Noted Date Diagnosed Date Resolved Date Chronic diastolic CHF (conge stive heart failure) 06/19/2018 02/17/2020 Acute pain of right shoulder 11/24/2017 12/21/2019 Left knee pain 01/07/2017 12/21/2019 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, with long-term current use of insulin 03/02/2016 017 Chronic low back pain 09/29/20142015 Decubitus ulcer of sacral region, stage 2 09/29/2014 06/19/2018 Peripheral neuropathy 06/23/20142020 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 10/21/2013 06/19/2018 CKD (chronic kidney disease) stage 4, GFR 15-29 ml/min 10/21/2013 05/30/2014 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, not stated as uncontrolled(250.51) 09/30/2013 10/21/2013 Type II 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, not stated as uncontrolled(250.60) 09/30/2013 01/06/2014 CKD stage G4/A1, GFR 15 - 29 and albumin creatinine ratio <30 mg/g 08/30/2013 05/30/2014 Abnormal gait 03/23/2012 06/21/2020 CRI (chronic renal insufficiency) 11/04/2010 02/20/2017 CRF (chronic renal failure) 07/02/2010 11/04/2010 Osteoarthritis of knee 09/07/200902/20 Brachial neuritis or radiculitis NOS 04/13/2009 06/21/2020 Ulcer of heel and midfoot 10/08/2007 ECZEMATOUS DERMATITIS NOS 06/04/2006 STASIS DERMATITIS///LEG VARICOSITY W INFLAM 12/19/2005 02/17/2020 XEROSIS///SEBACEOUS GLAND DIS NEC 12/19/2005 02/17/2020 Closed fracture of head of radius 07/01/2005 08/20/2005 Type I (juvenile type) diabe lor[place] mellitus without mention of complication, not stated as uncontrolled 05/29/2009 Edema 08/02/2014 DIABETES TYPE II W NEURO MANIFESTATIONS 09/30/2013 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 Ulcer of other part of foot 12/21/2019 Essential hypertension, benign 02/20/2017 Thrombocytopenia, unspecified 02/17/2020 Bilateral lower extremity edema 02/17/2020 documented as of this encounter (statuses as of 12/05/2022) [facility]03-[facility]2019 History of Past illness Narrative* Problem Noted Date Diagnosed Date Resolved Date Chronic diastolic CHF (conge stive heart failure) 06/19/2018 02/17/2020 Acute pain of right shoulder 11/24/2017 12/21/2019 Left knee pain 01/07/2017 12/21/2019 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, with long-term current use of insulin 03/02/2016 017 Chronic low back pain 09/29/20142015 Decubitus ulcer of sacral region, stage 2 09/29/2014 06/19/2018 Peripheral neuropathy 06/23/20142020 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 10/21/2013 06/19/2018 CKD (chronic kidney disease) stage 4, GFR 15-29 ml/min 10/21/2013 05/30/2014 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, not stated as uncontrolled(250.51) 09/30/2013 10/21/2013 Type II 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, not stated as uncontrolled(250.60) 09/30/2013 01/06/2014 CKD stage G4/A1, GFR 15 - 29 and albumin creatinine ratio <30 mg/g 08/30/2013 05/30/2014 Abnormal gait 03/23/2012 06/21/2020 CRI (chronic renal insufficiency) 11/04/2010 02/20/2017 CRF (chronic renal failure) 07/02/2010 11/04/2010 Osteoarthritis of knee 09/07/200902/20 Brachial neuritis or radiculitis NOS 04/13/2009 06/21/2020 Ulcer of heel and midfoot 10/08/2007 ECZEMATOUS DERMATITIS NOS 06/04/2006 STASIS DERMATITIS///LEG VARICOSITY W INFLAM 12/19/2005 02/17/2020 XEROSIS///SEBACEOUS GLAND DIS NEC 12/19/2005 02/17/2020 Closed fracture of head of radius 07/01/2005 08/20/2005 Type I (juvenile type) diabe [place] mellitus without mention of complication, not stated as uncontrolled 05/29/2009 Edema 08/02/2014 DIABETES TYPE II W NEURO MANIFESTATIONS 09/30/2013 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 Ulcer of other part of foot 12/21/2019 Essential hypertension, benign 02/20/2017 Thrombocytopenia, unspecified 02/17/2020 Bilateral lower extremity edema 02/17/2020 documented as of this encounter (statuses as of 12/20/2022) [facility]2019 History of Past illness Narrative* Problem Noted Date Diagnosed Date Resolved Date Chronic diastolic CHF (conge stive heart failure) 06/19/2018 02/17/2020 Acute pain of right shoulder 11/24/2017 12/21/2019 Left knee pain 01/07/2017 12/21/2019 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, with long-term current use of insulin 03/02/2016 017 Chronic low back pain 09/29/20142015 Decubitus ulcer of sacral region, stage 2 09/29/2014 06/19/2018 Peripheral neuropathy 06/23/20142020 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 10/21/2013 06/19/2018 CKD (chronic kidney disease) stage 4, GFR 15-29 ml/min 10/21/2013 05/30/2014 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, not stated as uncontrolled(250.51) 09/30/2013 10/21/2013 Type II 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, not stated as uncontrolled(250.60) 09/30/2013 01/06/2014 CKD stage G4/A1, GFR 15 - 29 and albumin creatinine ratio <30 mg/g 08/30/2013 05/30/2014 Abnormal gait 03/23/2012 06/21/2020 CRI (chronic renal insufficiency) 11/04/2010 02/20/2017 CRF (chronic renal failure) 07/02/2010 11/04/2010 Osteoarthritis of knee 09/07/200902/20 Brachial neuritis or radiculitis NOS 04/13/2009 06/21/2020 Ulcer of heel and midfoot 10/08/2007 ECZEMATOUS DERMATITIS NOS 06/04/2006 STASIS DERMATITIS///LEG VARICOSITY W INFLAM 12/19/2005 02/17/2020 XEROSIS///SEBACEOUS GLAND DIS NEC 12/19/2005 02/17/2020 Closed fracture of head of radius 07/01/2005 08/20/2005 Type I (juvenile type) diabe [place] mellitus without mention of complication, not stated as uncontrolled 05/29/2009 Edema 08/02/2014 DIABETES TYPE II W NEURO MANIFESTATIONS 09/30/2013 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 Ulcer of other part of foot 12/21/2019 Essential hypertension, benign 02/20/2017 Thrombocytopenia, unspecified 02/17/2020 Bilateral lower extremity edema 02/17/2020 documented as of this encounter (statuses as of 01/05/2023) [facility]2019 History of Past illness Narrative* Problem Noted Date Diagnosed Date Resolved Date Chronic diastolic CHF (conge stive heart failure) 06/19/2018 02/17/2020 Acute pain of right shoulder 11/24/2017 12/21/2019 Left knee pain 01/07/2017 12/21/2019 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, with long-term current use of insulin 03/02/2016 017 Chronic low back pain 09/29/20142015 Decubitus ulcer of sacral region, stage 2 09/29/2014 06/19/2018 Peripheral neuropathy 06/23/20142020 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 10/21/2013 06/19/2018 CKD (chronic kidney disease) stage 4, GFR 15-29 ml/min 10/21/2013 05/30/2014 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, not stated as uncontrolled(250.51) 09/30/2013 10/21/2013 Type II 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, not stated as uncontrolled(250.60) 09/30/2013 01/06/2014 CKD stage G4/A1, GFR 15 - 29 and albumin creatinine ratio <30 mg/g 08/30/2013 05/30/2014 Abnormal gait 03/23/2012 06/21/2020 CRI (chronic renal insufficiency) 11/04/2010 02/20/2017 CRF (chronic renal failure) 07/02/2010 11/04/2010 Osteoarthritis of knee 09/07/200902/20 Brachial neuritis or radiculitis NOS 04/13/2009 06/21/2020 Ulcer of heel and midfoot 10/08/2007 ECZEMATOUS DERMATITIS NOS 06/04/2006 STASIS DERMATITIS///LEG VARICOSITY W INFLAM 12/19/2005 02/17/2020 XEROSIS///SEBACEOUS GLAND DIS NEC 12/19/2005 02/17/2020 Closed fracture of head of radius 07/01/2005 08/20/2005 Type I (juvenile type) diabe [place] mellitus without mention of complication, not stated as uncontrolled 05/29/2009 Edema 08/02/2014 DIABETES TYPE II W NEURO MANIFESTATIONS 09/30/2013 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 Ulcer of other part of foot 12/21/2019 Essential hypertension, benign 02/20/2017 Thrombocytopenia, unspecified 02/17/2020 Bilateral lower extremity edema 02/17/2020 documented as of this encounter (statuses as of 01/23/2023) [facility]2019 History of Past illness Narrative* Problem Noted Date Diagnosed Date Resolved Date Chronic diastolic CHF (conge stive heart failure) 06/19/2018 02/17/2020 Acute pain of right shoulder 11/24/2017 12/21/2019 Left knee pain 01/07/2017 12/21/2019 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, with long-term current use of insulin 03/02/2016 017 Chronic low back pain 09/29/20142015 Decubitus ulcer of sacral region, stage 2 09/29/2014 06/19/2018 Peripheral neuropathy 06/23/20142020 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 10/21/2013 06/19/2018 CKD (chronic kidney disease) stage 4, GFR 15-29 ml/min 10/21/2013 05/30/2014 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, not stated as uncontrolled(250.51) 09/30/2013 10/21/2013 Type II 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, not stated as uncontrolled(250.60) 09/30/2013 01/06/2014 CKD stage G4/A1, GFR 15 - 29 and albumin creatinine ratio <30 mg/g 08/30/2013 05/30/2014 Abnormal gait 03/23/2012 06/21/2020 CRI (chronic renal insufficiency) 11/04/2010 02/20/2017 CRF (chronic renal failure) 07/02/2010 11/04/2010 Osteoarthritis of knee 09/07/200902/20 Brachial neuritis or radiculitis NOS 04/13/2009 06/21/2020 Ulcer of heel and midfoot 10/08/2007 ECZEMATOUS DERMATITIS NOS 06/04/2006 STASIS DERMATITIS///LEG VARICOSITY W INFLAM 12/19/2005 02/17/2020 XEROSIS///SEBACEOUS GLAND DIS NEC 12/19/2005 02/17/2020 Closed fracture of head of radius 07/01/2005 08/20/2005 Type I (juvenile type) diabe [place] mellitus without mention of complication, not stated as uncontrolled 05/29/2009 Edema 08/02/2014 DIABETES TYPE II W NEURO MANIFESTATIONS 09/30/2013 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 Ulcer of other part of foot 12/21/2019 Essential hypertension, benign 02/20/2017 Thrombocytopenia, unspecified 02/17/2020 Bilateral lower extremity edema 02/17/2020 documented as of this encounter (statuses as of 01/25/2023) [facility]2019 History of Past illness Narrative* Problem Noted Date Diagnosed Date Resolved Date Chronic diastolic CHF (conge stive heart failure) 06/19/2018 02/17/2020 Acute pain of right shoulder 11/24/2017 12/21/2019 Left knee pain 01/07/2017 12/21/2019 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, with long-term current use of insulin 03/02/2016 017 Chronic low back pain 09/29/20142015 Decubitus ulcer of sacral region, stage 2 09/29/2014 06/19/2018 Peripheral neuropathy 06/23/20142020 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 10/21/2013 06/19/2018 CKD (chronic kidney disease) stage 4, GFR 15-29 ml/min 10/21/2013 05/30/2014 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, not stated as uncontrolled(250.51) 09/30/2013 10/21/2013 Type II 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, not stated as uncontrolled(250.60) 09/30/2013 01/06/2014 CKD stage G4/A1, GFR 15 - 29 and albumin creatinine ratio <30 mg/g 08/30/2013 05/30/2014 Abnormal gait 03/23/2012 06/21/2020 CRI (chronic renal insufficiency) 11/04/2010 02/20/2017 CRF (chronic renal failure) 07/02/2010 11/04/2010 Osteoarthritis of knee 09/07/200902/20 Brachial neuritis or radiculitis NOS 04/13/2009 06/21/2020 Ulcer of heel and midfoot 10/08/2007 ECZEMATOUS DERMATITIS NOS 06/04/2006 STASIS DERMATITIS///LEG VARICOSITY W INFLAM 12/19/2005 02/17/2020 XEROSIS///SEBACEOUS GLAND DIS NEC 12/19/2005 02/17/2020 Closed fracture of head of radius 07/01/2005 08/20/2005 Type I (juvenile type) diabe [place] mellitus without mention of complication, not stated as uncontrolled 05/29/2009 Edema 08/02/2014 DIABETES TYPE II W NEURO MANIFESTATIONS 09/30/2013 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 Ulcer of other part of foot 12/21/2019 Essential hypertension, benign 02/20/2017 Thrombocytopenia, unspecified 02/17/2020 Bilateral lower extremity edema 02/17/2020 documented as of this encounter (statuses as of 01/31/2023) [facility]2019 History of Past illness Narrative* Problem Noted Date Diagnosed Date Resolved Date Chronic diastolic CHF (conge stive heart failure) 06/19/2018 02/17/2020 Acute pain of right shoulder 11/24/2017 12/21/2019 Left knee pain 01/07/2017 12/21/2019 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, with long-term current use of insulin 03/02/2016 017 Chronic low back pain 09/29/20142015 Decubitus ulcer of sacral region, stage 2 09/29/2014 06/19/2018 Peripheral neuropathy 06/23/20142020 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 10/21/2013 06/19/2018 CKD (chronic kidney disease) stage 4, GFR 15-29 ml/min 10/21/2013 05/30/2014 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, not stated as uncontrolled(250.51) 09/30/2013 10/21/2013 Type II 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, not stated as uncontrolled(250.60) 09/30/2013 01/06/2014 CKD stage G4/A1, GFR 15 - 29 and albumin creatinine ratio <30 mg/g 08/30/2013 05/30/2014 Abnormal gait 03/23/2012 06/21/2020 CRI (chronic renal insufficiency) 11/04/2010 02/20/2017 CRF (chronic renal failure) 07/02/2010 11/04/2010 Osteoarthritis of knee 09/07/200902/20 Brachial neuritis or radiculitis NOS 04/13/2009 06/21/2020 Ulcer of heel and midfoot 10/08/2007 ECZEMATOUS DERMATITIS NOS 06/04/2006 STASIS DERMATITIS///LEG VARICOSITY W INFLAM 12/19/2005 02/17/2020 XEROSIS///SEBACEOUS GLAND DIS NEC 12/19/2005 02/17/2020 Closed fracture of head of radius 07/01/2005 08/20/2005 Type I (juvenile type) diabe [place] mellitus without mention of complication, not stated as uncontrolled 05/29/2009 Edema 08/02/2014 DIABETES TYPE II W NEURO MANIFESTATIONS 09/30/2013 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 Ulcer of other part of foot 12/21/2019 Essential hypertension, benign 02/20/2017 Thrombocytopenia, unspecified 02/17/2020 Bilateral lower extremity edema 02/17/2020 documented as of this encounter (statuses as of 02/05/2023) [facility]2019 History of Past illness Narrative* Problem Noted Date Diagnosed Date Resolved Date Chronic diastolic CHF (conge stive heart failure) 06/19/2018 02/17/2020 Acute pain of right shoulder 11/24/2017 12/21/2019 Left knee pain 01/07/2017 12/21/2019 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, with long-term current use of insulin 03/02/2016 017 Chronic low back pain 09/29/20142015 Decubitus ulcer of sacral region, stage 2 09/29/2014 06/19/2018 Peripheral neuropathy 06/23/20142020 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 10/21/2013 06/19/2018 CKD (chronic kidney disease) stage 4, GFR 15-29 ml/min 10/21/2013 05/30/2014 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, not stated as uncontrolled(250.51) 09/30/2013 10/21/2013 Type II 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, not stated as uncontrolled(250.60) 09/30/2013 01/06/2014 CKD stage G4/A1, GFR 15 - 29 and albumin creatinine ratio <30 mg/g 08/30/2013 05/30/2014 Abnormal gait 03/23/2012 06/21/2020 CRI (chronic renal insufficiency) 11/04/2010 02/20/2017 CRF (chronic renal failure) 07/02/2010 11/04/2010 Osteoarthritis of knee 09/07/200902/20 Brachial neuritis or radiculitis NOS 04/13/2009 06/21/2020 Ulcer of heel and midfoot 10/08/2007 ECZEMATOUS DERMATITIS NOS 06/04/2006 STASIS DERMATITIS///LEG VARICOSITY W INFLAM 12/19/2005 02/17/2020 XEROSIS///SEBACEOUS GLAND DIS NEC 12/19/2005 02/17/2020 Closed fracture of head of radius 07/01/2005 08/20/2005 Type I (juvenile type) diabe [place] mellitus without mention of complication, not stated as uncontrolled 05/29/2009 Edema 08/02/2014 DIABETES TYPE II W NEURO MANIFESTATIONS 09/30/2013 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 Ulcer of other part of foot 12/21/2019 Essential hypertension, benign 02/20/2017 Thrombocytopenia, unspecified 02/17/2020 Bilateral lower extremity edema 02/17/2020 documented as of this encounter (statuses as of 02/08/2023) [facility]2019 History of Past illness Narrative* Problem Noted Date Diagnosed Date Resolved Date Chronic diastolic CHF (conge stive heart failure) 06/19/2018 02/17/2020 Acute pain of right shoulder 11/24/2017 12/21/2019 Left knee pain 01/07/2017 12/21/2019 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, with long-term current use of insulin 03/02/2016 017 Chronic low back pain 09/29/20142015 Decubitus ulcer of sacral region, stage 2 09/29/2014 06/19/2018 Peripheral neuropathy 06/23/20142020 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 10/21/2013 06/19/2018 CKD (chronic kidney disease) stage 4, GFR 15-29 ml/min 10/21/2013 05/30/2014 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, not stated as uncontrolled(250.51) 09/30/2013 10/21/2013 Type II 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, not stated as uncontrolled(250.60) 09/30/2013 01/06/2014 CKD stage G4/A1, GFR 15 - 29 and albumin creatinine ratio <30 mg/g 08/30/2013 05/30/2014 Abnormal gait 03/23/2012 06/21/2020 CRI (chronic renal insufficiency) 11/04/2010 02/20/2017 CRF (chronic renal failure) 07/02/2010 11/04/2010 Osteoarthritis of knee 09/07/200902/20 Brachial neuritis or radiculitis NOS 04/13/2009 06/21/2020 Ulcer of heel and midfoot 10/08/2007 ECZEMATOUS DERMATITIS NOS 06/04/2006 STASIS DERMATITIS///LEG VARICOSITY W INFLAM 12/19/2005 02/17/2020 XEROSIS///SEBACEOUS GLAND DIS NEC 12/19/2005 02/17/2020 Closed fracture of head of radius 07/01/2005 08/20/2005 Type I (juvenile type) diabe [place] mellitus without mention of complication, not stated as uncontrolled 05/29/2009 Edema 08/02/2014 DIABETES TYPE II W NEURO MANIFESTATIONS 09/30/2013 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 Ulcer of other part of foot 12/21/2019 Essential hypertension, benign 02/20/2017 Thrombocytopenia, unspecified 02/17/2020 Bilateral lower extremity edema 02/17/2020 documented as of this encounter (statuses as of 02/11/2023) [facility] History of Past illness Narrative* Problem Noted Date Diagnosed Date Resolved Date Chronic diastolic CHF (conge stive heart failure) 06/19/2018 02/17/2020 Acute pain of right shoulder 11/24/2017 12/21/2019 Left knee pain 01/07/2017 12/21/2019 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, with long-term current use of insulin 03/02/2016 017 Chronic low back pain 09/29/20142015 Decubitus ulcer of sacral region, stage 2 09/29/2014 06/19/2018 Peripheral neuropathy 06/23/20142020 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 10/21/2013 06/19/2018 CKD (chronic kidney disease) stage 4, GFR 15-29 ml/min 10/21/2013 05/30/2014 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, not stated as uncontrolled(250.51) 09/30/2013 10/21/2013 Type II 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, not stated as uncontrolled(250.60) 09/30/2013 01/06/2014 CKD stage G4/A1, GFR 15 - 29 and albumin creatinine ratio <30 mg/g 08/30/2013 05/30/2014 Abnormal gait 03/23/2012 06/21/2020 CRI (chronic renal insufficiency) 11/04/2010 02/20/2017 CRF (chronic renal failure) 07/02/2010 11/04/2010 Osteoarthritis of knee 09/07/200902/20 Brachial neuritis or radiculitis NOS 04/13/2009 06/21/2020 Ulcer of heel and midfoot 10/08/2007 ECZEMATOUS DERMATITIS NOS 06/04/2006 STASIS DERMATITIS///LEG VARICOSITY W INFLAM 12/19/2005 02/17/2020 XEROSIS///SEBACEOUS GLAND DIS NEC 12/19/2005 02/17/2020 Closed fracture of head of radius 07/01/2005 08/20/2005 Type I (juvenile type) diabe [place] mellitus without mention of complication, not stated as uncontrolled 05/29/2009 Edema 08/02/2014 DIABETES TYPE II W NEURO MANIFESTATIONS 09/30/2013 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 Ulcer of other part of foot 12/21/2019 Essential hypertension, benign 02/20/2017 Thrombocytopenia, unspecified 02/17/2020 Bilateral lower extremity edema 02/17/2020 documented as of this encounter (statuses as of 02/13/2023) [facility] History of Past illness Narrative* Problem Noted Date Diagnosed Date Resolved Date Chronic diastolic CHF (conge stive heart failure) 06/19/2018 02/17/2020 Acute pain of right shoulder 11/24/2017 12/21/2019 Left knee pain 01/07/2017 12/21/2019 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, with long-term current use of insulin 03/02/2016 017 Chronic low back pain 09/29/20142015 Decubitus ulcer of sacral region, stage 2 09/29/2014 06/19/2018 Peripheral neuropathy 06/23/20142020 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 10/21/2013 06/19/2018 CKD (chronic kidney disease) stage 4, GFR 15-29 ml/min 10/21/2013 05/30/2014 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, not stated as uncontrolled(250.51) 09/30/2013 10/21/2013 Type II 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, not stated as uncontrolled(250.60) 09/30/2013 01/06/2014 CKD stage G4/A1, GFR 15 - 29 and albumin creatinine ratio <30 mg/g 08/30/2013 05/30/2014 Abnormal gait 03/23/2012 06/21/2020 CRI (chronic renal insufficiency) 11/04/2010 02/20/2017 CRF (chronic renal failure) 07/02/2010 11/04/2010 Osteoarthritis of knee 09/07/200902/20 Brachial neuritis or radiculitis NOS 04/13/2009 06/21/2020 Ulcer of heel and midfoot 10/08/2007 ECZEMATOUS DERMATITIS NOS 06/04/2006 STASIS DERMATITIS///LEG VARICOSITY W INFLAM 12/19/2005 02/17/2020 XEROSIS///SEBACEOUS GLAND DIS NEC 12/19/2005 02/17/2020 Closed fracture of head of radius 07/01/2005 08/20/2005 Type I (juvenile type) diabe [place] mellitus without mention of complication, not stated as uncontrolled 05/29/2009 Edema 08/02/2014 DIABETES TYPE II W NEURO MANIFESTATIONS 09/30/2013 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 Ulcer of other part of foot 12/21/2019 Essential hypertension, benign 02/20/2017 Thrombocytopenia, unspecified 02/17/2020 Bilateral lower extremity edema 02/17/2020 documented as of this encounter (statuses as of 02/14/2023) [facility] History of Past illness Narrative* Problem Noted Date Diagnosed Date Resolved Date Chronic diastolic CHF (conge stive heart failure) 06/19/2018 02/17/2020 Acute pain of right shoulder 11/24/2017 12/21/2019 Left knee pain 01/07/2017 12/21/2019 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, with long-term current use of insulin 03/02/2016 017 Chronic low back pain 09/29/20142015 Decubitus ulcer of sacral region, stage 2 09/29/2014 06/19/2018 Peripheral neuropathy 06/23/20142020 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 10/21/2013 06/19/2018 CKD (chronic kidney disease) stage 4, GFR 15-29 ml/min 10/21/2013 05/30/2014 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, not stated as uncontrolled(250.51) 09/30/2013 10/21/2013 Type II 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, not stated as uncontrolled(250.60) 09/30/2013 01/06/2014 CKD stage G4/A1, GFR 15 - 29 and albumin creatinine ratio <30 mg/g 08/30/2013 05/30/2014 Abnormal gait 03/23/2012 06/21/2020 CRI (chronic renal insufficiency) 11/04/2010 02/20/2017 CRF (chronic renal failure) 07/02/2010 11/04/2010 Osteoarthritis of knee 09/07/200902/20 Brachial neuritis or radiculitis NOS 04/13/2009 06/21/2020 Ulcer of heel and midfoot 10/08/2007 ECZEMATOUS DERMATITIS NOS 06/04/2006 STASIS DERMATITIS///LEG VARICOSITY W INFLAM 12/19/2005 02/17/2020 XEROSIS///SEBACEOUS GLAND DIS NEC 12/19/2005 02/17/2020 Closed fracture of head of radius 07/01/2005 08/20/2005 Type I (juvenile type) diabe [place] mellitus without mention of complication, not stated as uncontrolled 05/29/2009 Edema 08/02/2014 DIABETES TYPE II W NEURO MANIFESTATIONS 09/30/2013 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 Ulcer of other part of foot 12/21/2019 Essential hypertension, benign 02/20/2017 Thrombocytopenia, unspecified 02/17/2020 Bilateral lower extremity edema 02/17/2020 documented as of this encounter (statuses as of 02/15/2023) [facility] History of Past illness Narrative* Problem Noted Date Diagnosed Date Resolved Date Chronic diastolic CHF (conge stive heart failure) 06/19/2018 02/17/2020 Acute pain of right shoulder 11/24/2017 12/21/2019 Left knee pain 01/07/2017 12/21/2019 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, with long-term current use of insulin 03/02/2016 017 Chronic low back pain 09/29/20142015 Decubitus ulcer of sacral region, stage 2 09/29/2014 06/19/2018 Peripheral neuropathy 06/23/20142020 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 10/21/2013 06/19/2018 CKD (chronic kidney disease) stage 4, GFR 15-29 ml/min 10/21/2013 05/30/2014 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, not stated as uncontrolled(250.51) 09/30/2013 10/21/2013 Type II 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, not stated as uncontrolled(250.60) 09/30/2013 01/06/2014 CKD stage G4/A1, GFR 15 - 29 and albumin creatinine ratio <30 mg/g 08/30/2013 05/30/2014 Abnormal gait 03/23/2012 06/21/2020 CRI (chronic renal insufficiency) 11/04/2010 02/20/2017 CRF (chronic renal failure) 07/02/2010 11/04/2010 Osteoarthritis of knee 09/07/200902/20 Brachial neuritis or radiculitis NOS 04/13/2009 06/21/2020 Ulcer of heel and midfoot 10/08/2007 ECZEMATOUS DERMATITIS NOS 06/04/2006 STASIS DERMATITIS///LEG VARICOSITY W INFLAM 12/19/2005 02/17/2020 XEROSIS///SEBACEOUS GLAND DIS NEC 12/19/2005 02/17/2020 Closed fracture of head of radius 07/01/2005 08/20/2005 Type I (juvenile type) diabe lorraine mellitus without mention of complication, not stated as uncontrolled 05/29/2009 Edema 08/02/2014 DIABETES TYPE II W NEURO MANIFESTATIONS 09/30/2013 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 Ulcer of other part of foot 12/21/2019 Essential hypertension, benign 02/20/2017 Thrombocytopenia, unspecified 02/17/2020 Bilateral lower extremity edema 02/17/2020 documented as of this encounter (statuses as of 02/28/2023) [facility]03-[facility]-2019 History of Past illness Narrative* Problem Noted Date Diagnosed Date Resolved Date Chronic diastolic CHF (conge stive heart failure) 06/19/2018 02/17/2020 Acute pain of right shoulder 11/24/2017 12/21/2019 Left knee pain 01/07/2017 12/21/2019 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, with long-term current use of insulin 03/02/2016 017 Chronic low back pain 09/29/20142015 Decubitus ulcer of sacral region, stage 2 09/29/2014 06/19/2018 Peripheral neuropathy 06/23/20142020 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 10/21/2013 06/19/2018 CKD (chronic kidney disease) stage 4, GFR 15-29 ml/min 10/21/2013 05/30/2014 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, not stated as uncontrolled(250.51) 09/30/2013 10/21/2013 Type II 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, not stated as uncontrolled(250.60) 09/30/2013 01/06/2014 CKD stage G4/A1, GFR 15 - 29 and albumin creatinine ratio <30 mg/g 08/30/2013 05/30/2014 Abnormal gait 03/23/2012 06/21/2020 CRI (chronic renal insufficiency) 11/04/2010 02/20/2017 CRF (chronic renal failure) 07/02/2010 11/04/2010 Osteoarthritis of knee 09/07/200902/20 Brachial neuritis or radiculitis NOS 04/13/2009 06/21/2020 Ulcer of heel and midfoot 10/08/2007 ECZEMATOUS DERMATITIS NOS 06/04/2006 STASIS DERMATITIS///LEG VARICOSITY W INFLAM 12/19/2005 02/17/2020 XEROSIS///SEBACEOUS GLAND DIS NEC 12/19/2005 02/17/2020 Closed fracture of head of radius 07/01/2005 08/20/2005 Type I (juvenile type) diabe lorraine mellitus without mention of complication, not stated as uncontrolled 05/29/2009 Edema 08/02/2014 DIABETES TYPE II W NEURO MANIFESTATIONS 09/30/2013 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 Ulcer of other part of foot 12/21/2019 Essential hypertension, benign 02/20/2017 Thrombocytopenia, unspecified 02/17/2020 Bilateral lower extremity edema 02/17/2020 documented as of this encounter (statuses as of 03/01/2023) [facility] History of Past illness Narrative* Problem Noted Date Diagnosed Date Resolved Date Chronic diastolic CHF (conge stive heart failure) 06/19/2018 02/17/2020 Acute pain of right shoulder 11/24/2017 12/21/2019 Left knee pain 01/07/2017 12/21/2019 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, with long-term current use of insulin 03/02/2016 017 Chronic low back pain 09/29/20142015 Decubitus ulcer of sacral region, stage 2 09/29/2014 06/19/2018 Peripheral neuropathy 06/23/20142020 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 10/21/2013 06/19/2018 CKD (chronic kidney disease) stage 4, GFR 15-29 ml/min 10/21/2013 05/30/2014 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, not stated as uncontrolled(250.51) 09/30/2013 10/21/2013 Type II 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, not stated as uncontrolled(250.60) 09/30/2013 01/06/2014 CKD stage G4/A1, GFR 15 - 29 and albumin creatinine ratio <30 mg/g 08/30/2013 05/30/2014 Abnormal gait 03/23/2012 06/21/2020 CRI (chronic renal insufficiency) 11/04/2010 02/20/2017 CRF (chronic renal failure) 07/02/2010 11/04/2010 Osteoarthritis of knee 09/07/200902/20 Brachial neuritis or radiculitis NOS 04/13/2009 06/21/2020 Ulcer of heel and midfoot 10/08/2007 ECZEMATOUS DERMATITIS NOS 06/04/2006 STASIS DERMATITIS///LEG VARICOSITY W INFLAM 12/19/2005 02/17/2020 XEROSIS///SEBACEOUS GLAND DIS NEC 12/19/2005 02/17/2020 Closed fracture of head of radius 07/01/2005 08/20/2005 Type I (juvenile type) diabe lorraine mellitus without mention of complication, not stated as uncontrolled 05/29/2009 Edema 08/02/2014 DIABETES TYPE II W NEURO MANIFESTATIONS 09/30/2013 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 Ulcer of other part of foot 12/21/2019 Essential hypertension, benign 02/20/2017 Thrombocytopenia, unspecified 02/17/2020 Bilateral lower extremity edema 02/17/2020 documented as of this encounter (statuses as of 03/03/2023) [facility] History of Past illness Narrative* Problem Noted Date Diagnosed Date Resolved Date Chronic diastolic CHF (conge stive heart failure) 06/19/2018 02/17/2020 Acute pain of right shoulder 11/24/2017 12/21/2019 Left knee pain 01/07/2017 12/21/2019 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, with long-term current use of insulin 03/02/2016 017 Chronic low back pain 09/29/20142015 Decubitus ulcer of sacral region, stage 2 09/29/2014 06/19/2018 Peripheral neuropathy 06/23/20142020 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 10/21/2013 06/19/2018 CKD (chronic kidney disease) stage 4, GFR 15-29 ml/min 10/21/2013 05/30/2014 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, not stated as uncontrolled(250.51) 09/30/2013 10/21/2013 Type II 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, not stated as uncontrolled(250.60) 09/30/2013 01/06/2014 CKD stage G4/A1, GFR 15 - 29 and albumin creatinine ratio <30 mg/g 08/30/2013 05/30/2014 Abnormal gait 03/23/2012 06/21/2020 CRI (chronic renal insufficiency) 11/04/2010 02/20/2017 CRF (chronic renal failure) 07/02/2010 11/04/2010 Osteoarthritis of knee 09/07/200902/20 Brachial neuritis or radiculitis NOS 04/13/2009 06/21/2020 Ulcer of heel and midfoot 10/08/2007 ECZEMATOUS DERMATITIS NOS 06/04/2006 STASIS DERMATITIS///LEG VARICOSITY W INFLAM 12/19/2005 02/17/2020 XEROSIS///SEBACEOUS GLAND DIS NEC 12/19/2005 02/17/2020 Closed fracture of head of radius 07/01/2005 08/20/2005 Type I (juvenile type) diabe lorraine mellitus without mention of complication, not stated as uncontrolled 05/29/2009 Edema 08/02/2014 DIABETES TYPE II W NEURO MANIFESTATIONS 09/30/2013 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 Ulcer of other part of foot 12/21/2019 Essential hypertension, benign 02/20/2017 Thrombocytopenia, unspecified 02/17/2020 Bilateral lower extremity edema 02/17/2020 documented as of this encounter (statuses as of 03/06/2023) [facility] History of Past illness Narrative* Problem Noted Date Diagnosed Date Resolved Date Chronic diastolic CHF (conge stive heart failure) 06/19/2018 02/17/2020 Acute pain of right shoulder 11/24/2017 12/21/2019 Left knee pain 01/07/2017 12/21/2019 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, with long-term current use of insulin 03/02/2016 017 Chronic low back pain 09/29/20142015 Decubitus ulcer of sacral region, stage 2 09/29/2014 06/19/2018 Peripheral neuropathy 06/23/20142020 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 10/21/2013 06/19/2018 CKD (chronic kidney disease) stage 4, GFR 15-29 ml/min 10/21/2013 05/30/2014 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, not stated as uncontrolled(250.51) 09/30/2013 10/21/2013 Type II 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, not stated as uncontrolled(250.60) 09/30/2013 01/06/2014 CKD stage G4/A1, GFR 15 - 29 and albumin creatinine ratio <30 mg/g 08/30/2013 05/30/2014 Abnormal gait 03/23/2012 06/21/2020 CRI (chronic renal insufficiency) 11/04/2010 02/20/2017 CRF (chronic renal failure) 07/02/2010 11/04/2010 Osteoarthritis of knee 09/07/200902/20 Brachial neuritis or radiculitis NOS 04/13/2009 06/21/2020 Ulcer of heel and midfoot 10/08/2007 ECZEMATOUS DERMATITIS NOS 06/04/2006 STASIS DERMATITIS///LEG VARICOSITY W INFLAM 12/19/2005 02/17/2020 XEROSIS///SEBACEOUS GLAND DIS NEC 12/19/2005 02/17/2020 Closed fracture of head of radius 07/01/2005 08/20/2005 Type I (juvenile type) diabe lorraine mellitus without mention of complication, not stated as uncontrolled 05/29/2009 Edema 08/02/2014 DIABETES TYPE II W NEURO MANIFESTATIONS 09/30/2013 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 Ulcer of other part of foot 12/21/2019 Essential hypertension, benign 02/20/2017 Thrombocytopenia, unspecified 02/17/2020 Bilateral lower extremity edema 02/17/2020 documented as of this encounter (statuses as of 03/19/2023) [facility] Diagnosis DM (diabetes mellitus), type 2 with neurological complications (HCC) Type II 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, not stated as uncontrolled [facility] encounter [facility]* Diagnosis Lumbar radiculopathy Thoracic or lumbosacral neuritis or radiculitis, unspecified [facility]* Diagnosis Lumbar radiculopathy Thoracic or lumbosacral neuritis or radiculitis, unspecified [facility]* Diagnosis Lumbar radiculopathy Thoracic or lumbosacral neuritis or radiculitis, unspecified [facility]* Diagnosis DM (diabetes mellitus), 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 Type II 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, not stated as uncontrolled [facility]* Diagnosis Lumbar radiculopathy Thoracic or lumbosacral neuritis or radiculitis, unspecified [facility]* Diagnosis DM (diabetes mellitus), 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 Type II 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, not stated as uncontrolled Acquired hypothyroidism Unspecified hypothyroidism Essential hypertension Unspecified essential hypertension Stage 3 chronic kidney disease, unspecified whether stage 3a or 3b CKD (HCC) Chronic bilateral low back pain with bilateral sciatica Chronic narcotic use Chronic diastolic congestive heart failure (HCC) Chronic diastolic heart failure Postnasal drip [facility]* Diagnosis Lumbar radiculopathy Thoracic or lumbosacral neuritis or radiculitis, unspecified [facility]* Diagnosis Lumbar radiculopathy Thoracic or lumbosacral neuritis or radiculitis, unspecified [facility]* Diagnosis Acquired hypothyroidism Unspecified hypothyroidism Essential hypertension Unspecified essential hypertension CKD (chronic kidney disease) stage 3, GFR 30-59 ml/min (HCC) Chronic kidney disease, Stage III (moderate) documented [facility] encounter [facility]* Diagnosis Acquired hypothyroidism Unspecified hypothyroidism Essential hypertension Unspecified essential hypertension CKD (chronic kidney disease) stage 3, GFR 30-59 ml/min (HCC) Chronic kidney disease, Stage III (moderate) documented [facility]* Diagnosis Pressure injury of sacral region, stage 2 (HCC)- Primary 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 Rib pain on right side Chest pain, unspecified At high risk for falls Personal history of fall Right leg swelling Swelling of limb documented [facility] encounter [facility]* Diagnosis Lumbar radiculopathy Thoracic or lumbosacral neuritis or radiculitis, unspecified [facility]* Diagnosis DM (diabetes mellitus), type 2 with neurological complications (HCC) Type II 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, not stated as uncontrolled [facility] encounter [facility]* Diagnosis Subcutaneous mass of back- Primary Pressure injury of sacral region, stage 2 (HCC) Pressure injury of back, stage 1 [address] [facility] [address] encounter [facility] note* Diagnosis Subcutaneous mass of back [facility] encounter [facility]* Diagnosis Lipoma of back- Primary Lipoma of other specified sites documented [facility] this encounter [facility]* Diagnosis DM (diabetes mellitus), type 2 with neurological complications (HCC) Type II 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, not stated as uncontrolled [facility] encounter [facility]* Diagnosis Lumbar radiculopathy Thoracic or lumbosacral neuritis or radiculitis, unspecified [facility]* Diagnosis Onychomycosis- Primary Dermatophytosis of nail Pain in toe of left foot Pain in limb Pain in toe of right foot Pain in limb Other diabetic neurological complication associated with type 2 diabetes mellitus (HCC) [facility] Diagnosis SOB (shortness of breath)- Primary Shortness of breath Nausea Nausea alone Generalized weakness Other malaise and fatigue Acute pain of left knee [facility] Diagnosis Elevated alkaline phosphatase level- Primary Other nonspecific abnormal serum enzyme levels [facility] Diagnosis SOB (shortness of breath)- Primary Shortness of breath [facility] Diagnosis Chronic cough- Primary Cough [facility]* Diagnosis Type 2 diabetes mellitus with diabetic peripheral angiopathy without gangrene, with long-term current use of insulin (HCC)- Primary Stage 3b chronic kidney disease (HCC) Chronic diastolic congestive heart failure (HCC) Chronic diastolic heart failure Idiopathic gout of ankle, unspecified chronicity, unspecified laterality Spinal stenosis of lumbar region, unspecified whether neurogenic claudication present Chronic bilateral low back pain with bilateral sciatica Controlled substance agreement signed Encounter for long-term (current) use of other medications Peripheral artery disease (HCC) Peripheral vascular disease, unspecified Acquired hypothyroidism Unspecified hypothyroidism Class 1 obesity due to excess calories with serious comorbidity and body mass index (BMI) of 32.0 to 32.9 in adult Skin lesion of back Unspecified disorder of skin and subcutaneous tissue Proliferative diabetic retinopathy of both eyes associated with type 2 diabetes mellitus, macular edema presence unspecified (HCC) Controlled type 2 diabetes mellitus with stage 3 chronic kidney disease, with long-term current use of insulin (HCC) Type 2 diabetes mellitus with diabetic polyneuropathy, 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) Unspecified inflammatory polyarthropathy Hypertensive heart and kidney disease with chronic diastolic congestive heart failure and stage 3b chronic kidney disease (HCC) [facility] Diagnosis DM (diabetes mellitus), type 2 with neurological complications (HCC) Type II 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, not stated as uncontrolled [facility] Diagnosis Onychomycosis- Primary Dermatophytosis of nail Pain in toe of left foot Pain in limb Pain in toe of right foot Pain in limb Other diabetic neurological complication associated with type 2 diabetes mellitus (HCC) Undifferentiated inflammatory arthritis (HCC) Unspecified inflammatory polyarthropathy Pressure injury of sacral region, stage 2 (HCC) [facility] Diagnosis Lumbar radiculopathy Thoracic or lumbosacral neuritis or radiculitis, unspecified [facility]* Diagnosis DM (diabetes mellitus), type 2 with neurological complications (HCC) Type II 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, not stated as uncontrolled Acquired hypothyroidism Unspecified hypothyroidism Essential hypertension Unspecified essential hypertension CKD (chronic kidney disease) stage 3, GFR 30-59 ml/min (HCC) Chronic kidney disease, Stage III (moderate) [facility] Diagnosis DM (diabetes mellitus), type 2 with neurological complications (HCC) Type II 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, not stated as uncontrolled [facility] Diagnosis Lumbar radiculopathy Thoracic or lumbosacral neuritis or radiculitis, unspecified [facility] Diagnosis Lumbar radiculopathy Thoracic or lumbosacral neuritis or radiculitis, unspecified [facility] Diagnosis Hyperkalemia- Primary Hyperpotassemia [facility]* Diagnosis Lumbar radiculopathy Thoracic or lumbosacral neuritis or radiculitis, unspecified [facility] Diagnosis Type 2 diabetes mellitus with diabetic peripheral angiopathy without gangrene, with long-term current use of insulin (HCC)- Primary Proliferative diabetic retinopathy of both eyes associated with type 2 diabetes mellitus, macular edema presence unspecified (HCC) Lumbar radiculopathy Thoracic or lumbosacral neuritis or radiculitis, unspecified Peripheral artery disease (HCC) Peripheral vascular disease, unspecified Chronic diastolic congestive heart failure (HCC) Chronic diastolic heart failure Hypertensive heart and kidney disease with chronic diastolic congestive heart failure and stage 3b chronic kidney disease (HCC) Essential hypertension Unspecified essential hypertension CKD (chronic kidney disease) stage 3, GFR 30-59 ml/min (HCC) Chronic kidney disease, Stage III (moderate) Acquired hypothyroidism Unspecified hypothyroidism Pressure injury of back, stage 1 Encounter for immunization Need for other specified prophylactic vaccination against single bacterial disease Undifferentiated inflammatory arthritis (HCC) Unspecified inflammatory polyarthropathy Stage 3a chronic kidney disease (HCC) [facility] Diagnosis Essential hypertension Unspecified essential hypertension CKD (chronic kidney disease) stage 3, GFR 30-59 ml/min (HCC) Chronic kidney disease, Stage III (moderate) Acquired hypothyroidism Unspecified hypothyroidism DM (diabetes mellitus), type 2 with neurological complications ([facility]) Type II 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, not stated as uncontrolled documented in this encounter [facility] note* Diagnosis Lumbar radiculopathy Thoracic or lumbosacral neuritis or radiculitis, unspecified documented in this encounter [facility] note* Diagnosis Dysuria- Primary Hematuria, unspecified type Right flank discomfort Abdominal pain, unspecified site Pelvic pain in female Unspecified symptom associated with female genital organs documented in this encounter [facility] note* Diagnosis Dysuria Hematuria, unspecified type Right flank discomfort Abdominal pain, unspecified site documented in this encounter [facility]* Diagnosis Viral URI with cough- Primary Acute upper respiratory infections of unspecified site Productive cough Cough documented in this encounter [facility] note* Diagnosis Abnormal chest x-ray- Primary Other nonspecific abnormal finding of lung field documented in this encounter 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 Procedures XR RIBS/CHEST 3V AP RIB/OBLS/CXR RIGHT RADEX RIBS UNI W/POSTEROANT CH MINIMUM 3 VIEWS Rylee Henson MD [address] [place] [address] Xr Imaging Referral ID Status Reason Start Date Expiration Date V isits Requested Visits Authorized [id number] Closed Auto-Generate d Referral 01/30/2022 03/01/2023 1 1 [facility] for referral (narrative)* Diagnostic Procedure Only (Routine) - Closed Specialty Diagnoses / Procedures Referred By Rosie t Referred To Contact US IMAGING Diagnoses Subcutaneous mass of back Procedures US CHEST WALL/SOFT TISSUE US CHEST REAL TIME W/IMAGE DOCUMENTATION DarwinlogChandrika rmaírez APRN.ELECTRONIC REPAIR TROUBLESHOOTER [address] [place] [address] Us Imaging Referral ID Status Reason Start Date Expiration Date V isits Requested Visits Authorized [id number] Closed Auto-Generate d Referral 02/05/2022 03/07/2023 1 1 [facility] for referral (narrative)* Diagnostic Procedure Only (Routine) - Closed Specialty Diagnoses / Procedures Referred By Contac t Referred To Contact US IMAGING Diagnoses Subcutaneous mass of back Procedures US CHEST WALL/SOFT TISSUE US CHEST REAL TIME W/IMAGE DOCUMENTATION Chandrika Almonte APRN.CNP [address] [place] [address] Us Imaging Referral ID Status Reason Start Date Expiration Date V isits Requested Visits Authorized [id number] Closed Auto-Generate d Referral 02/05/2022 03/07/2023 1 1 [facility] for referral (narrative)* Diagnostic Procedure Only (Routine) - Authorized Specialty Diagnoses / Procedures Referred By Contac t Referred To Contact US IMAGING Diagnoses Dysuria Hematuria, unspecified type Right flank discomfort Procedures US KIDNEY/BLADDER US RETROPERITONEAL REAL TIME W/IMAGE COMPLETE Felicia Irwin MD [address] [place] [address] [place] [id number] Referral ID Status Reason Start Date Expiration Date Visits Requested Visits Authorized [id number] Authorized Auto-Generat ed Referral 02/12/2023 03/13/2024 1 1 [facility] for visit Narrative* Diagnostic Procedure Only (Routine) - Closed Specialty Diagnoses / Procedures Referred By Contac t Referred To Contact US IMAGING Diagnoses Subcutaneous mass of back Procedures US CHEST WALL/SOFT TISSUE US CHEST REAL TIME W/IMAGE DOCUMENTATION Podlogar, Chandrika, GUIDANCE AND CONTROL SYSTEM ENGINEER.ELECTRONIC REPAIR TROUBL[employer]HOOTER [address] [place] [address] Us Imaging Referral ID Status Reason Start Date Expiration Date V isits Requested Visits Authorized [id number] Closed Auto-Generate d Referral 02/05/2022 03/07/2023 1 1 [facility] [facility] Advance Directives No Advanced Directives Records FoundDocuments on File Type Date Recorded 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 60-74 MINUTES Podlogar, Chandrika, GUIDANCE AND CONTROL SYSTEM ENGINEER.[employer]LECTRONIC [employer]PAIR [employer]OUBL[employer] [address] [place] [address] Referral ID Status Reason Start Date Expiration Date Visits Requested Visits Authorized [id number] Pending Review PCP Requested Referral 02/13/2022 02/13/2023 1 1 Specialty Diagnoses / Procedures Referred By Contac t Referred To Contact Diagnoses Viral URI with cough Rylee Henson MD [address] [place] [address] Referral ID Status Reason Start Date Expiration Date Visits Re quested Visits Authorized [id number] Denied 1 1 Specialty Diagnoses / Procedures Referred By Contac t Referred To Contact CT IMAGING Diagnoses Abnormal chest x-ray Procedures CT CHEST WO IVCON DIAGNOSTIC COMPUTED TOMOGRAPHY THORAX W/O CNTRST Rylee Henson MD [address] [place] [address] [place] [id number] Referral ID Status Reason Start Date Expiration Date Visits Requested Visits Authorized [id number] Pending Review Auto-Generat ed Referral 04/01/2024 1 1 Health Concerns Infection Onset Date Last Indicated Resolved Time COVID-19 Rule-Out 03/27/2022 03/27/2022 Infection Onset Date Last Indicated Resolved Time COVID-19 Rule-Out 03/27/2022 03/27/2022 03/28/2022 1:56 AM EST Additional Source Comments Source Comments (unrecognize d section and content) In the event this informatio n is protected by the Federal Confidentiality of Alcohol and Drug Abuse Patient Records regulations: The Federal rules restrict any use of the information to criminally investigate or prosecute any alcohol or drug abuse patient.[facility] the event this information is protected by the Federal Confidentiality of Alcohol and Drug Abuse Patient Records regulations: The Federal rules restrict any use of the information to criminally investigate or prosecute any alcohol or drug abuse patient.[facility]In the event this information is protected by the Federal Confidentiality of Alcohol and Drug Abuse Patient Records regulations: The Federal rules restrict any use of the information to criminally investigate or prosecute any alcohol or drug abuse patient.[facility]In the event this information is protected by the Federal Confidentiality of Alcohol and Drug Abuse Patient Records regulations: The Federal rules restrict any use of the information to criminally investigate or prosecute any alcohol or drug abuse patient.[facility] HospitalIn the event this information is protected by the Federal Confidentiality of Alcohol and Drug Abuse Patient Records regulations: The Federal rules restrict any use of the information to criminally investigate or prosecute any alcohol or drug abuse patient.[facility] HospitalIn the event this information is protected by the Federal Confidentiality of Alcohol and Drug Abuse Patient Records regulations: The Federal rules restrict any use of the information to criminally investigate or prosecute any alcohol or drug abuse patient.[facility] HospitalIn the event this information is protected by the Federal Confidentiality of Alcohol and Drug Abuse Patient Records regulations: The Federal rules restrict any use of the information to criminally investigate or prosecute any alcohol or drug abuse patient.[facility] HospitalIn the event this information is protected by the Federal Confidentiality of Alcohol and Drug Abuse Patient Records regulations: The Federal rules restrict any use of the information to criminally investigate or prosecute any alcohol or drug abuse patient.[facility] HospitalIn the event this information is protected by the Federal Confidentiality of Alcohol and Drug Abuse Patient Records regulations: The Federal rules restrict any use of the information to criminally investigate or prosecute any alcohol or drug abuse patient.[facility] HospitalIn the event this information is protected by the Federal Confidentiality of Alcohol and Drug Abuse Patient Records regulations: The Federal rules restrict any use of the information to criminally investigate or prosecute any alcohol or drug abuse patient.[facility] HospitalIn the event this information is protected by the Federal Confidentiality of Alcohol and Drug Abuse Patient Records regulations: The Federal rules restrict any use of the information to criminally investigate or prosecute any alcohol or drug abuse patient.[facility] HospitalIn the event this information is protected by the Federal Confidentiality of Alcohol and Drug Abuse Patient Records regulations: The Federal rules restrict any use of the information to criminally investigate or prosecute any alcohol or drug abuse patient.[facility] HospitalIn the event this information is protected by the Federal Confidentiality of Alcohol and Drug Abuse Patient Records regulations: The Federal rules restrict any use of the information to criminally investigate or prosecute any alcohol or drug abuse patient.[facility] HospitalIn the event this information is protected by the Federal Confidentiality of Alcohol and Drug Abuse Patient Records regulations: The Federal rules restrict any use of the information to criminally investigate or prosecute any alcohol or drug abuse patient.[facility] HospitalIn the event this information is protected by the Federal Confidentiality of Alcohol and Drug Abuse Patient Records regulations: The Federal rules restrict any use of the information to criminally investigate or prosecute any alcohol or drug abuse patient.[facility] HospitalIn the event this information is protected by the Federal Confidentiality of Alcohol and Drug Abuse Patient Records regulations: The Federal rules restrict any use of the information to criminally investigate or prosecute any alcohol or drug abuse patient.[facility] HospitalIn the event this information is protected by the Federal Confidentiality of Alcohol and Drug Abuse Patient Records regulations: The Federal rules restrict any use of the information to criminally investigate or prosecute any alcohol or drug abuse patient.[facility] HospitalIn the event this information is protected by the Federal Confidentiality of Alcohol and Drug Abuse Patient Records regulations: The Federal rules restrict any use of the information to criminally investigate or prosecute any alcohol or drug abuse patient.[facility] HospitalIn the event this information is protected by the Federal Confidentiality of Alcohol and Drug Abuse Patient Records regulations: The Federal rules restrict any use of the information to criminally investigate or prosecute any alcohol or drug abuse patient.[facility] HospitalIn the event this information is protected by the Federal Confidentiality of Alcohol and Drug Abuse Patient Records regulations: The Federal rules restrict any use of the information to criminally investigate or prosecute any alcohol or drug abuse patient.[facility] HospitalIn the event this information is protected by the Federal Confidentiality of Alcohol and Drug Abuse Patient Records regulations: The Federal rules restrict any use of the information to criminally investigate or prosecute any alcohol or drug abuse patient.[facility] HospitalIn the event this information is protected by the Federal Confidentiality of Alcohol and Drug Abuse Patient Records regulations: The Federal rules restrict any use of the information to criminally investigate or prosecute any alcohol or drug abuse patient.[facility] HospitalIn the event this information is protected by the Federal Confidentiality of Alcohol and Drug Abuse Patient Records regulations: The Federal rules restrict any use of the information to criminally investigate or prosecute any alcohol or drug abuse patient.[facility] HospitalIn the event this information is protected by the Federal Confidentiality of Alcohol and Drug Abuse Patient Records regulations: The Federal rules restrict any use of the information to criminally investigate or prosecute any alcohol or drug abuse patient.[facility] HospitalIn the event this information is protected by the Federal Confidentiality of Alcohol and Drug Abuse Patient Records regulations: The Federal rules restrict any use of the information to criminally investigate or prosecute any alcohol or drug abuse patient.[facility] HospitalIn the event this information is protected by the Federal Confidentiality of Alcohol and Drug Abuse Patient Records regulations: The Federal rules restrict any use of the information to criminally investigate or prosecute any alcohol or drug abuse patient.[facility] HospitalIn the event this information is protected by the Federal Confidentiality of Alcohol and Drug Abuse Patient Records regulations: The Federal rules restrict any use of the information to criminally investigate or prosecute any alcohol or drug abuse patient.[facility] HospitalIn the event this information is protected by the Federal Confidentiality of Alcohol and Drug Abuse Patient Records regulations: The Federal rules restrict any use of the information to criminally investigate or prosecute any alcohol or drug abuse patient.[facility] HospitalIn the event this information is protected by the Federal Confidentiality of Alcohol and Drug Abuse Patient Records regulations: The Federal rules restrict any use of the information to criminally investigate or prosecute any alcohol or drug abuse patient.[facility] HospitalIn the event this information is protected by the Federal Confidentiality of Alcohol and Drug Abuse Patient Records regulations: The Federal rules restrict any use of the information to criminally investigate or prosecute any alcohol or drug abuse patient.[facility] HospitalIn the event this information is protected by the Federal Confidentiality of Alcohol and Drug Abuse Patient Records regulations: The Federal rules restrict any use of the information to criminally investigate or prosecute any alcohol or drug abuse patient.[facility] HospitalIn the event this information is protected by the Federal Confidentiality of Alcohol and Drug Abuse Patient Records regulations: The Federal rules restrict any use of the information to criminally investigate or prosecute any alcohol or drug abuse patient.[facility] HospitalIn the event this information is protected by the Federal Confidentiality of Alcohol and Drug Abuse Patient Records regulations: The Federal rules restrict any use of the information to criminally investigate or prosecute any alcohol or drug abuse patient.[facility] HospitalIn the event this information is protected by the Federal Confidentiality of Alcohol and Drug Abuse Patient Records regulations: The Federal rules restrict any use of the information to criminally investigate or prosecute any alcohol or drug abuse patient.[facility] HospitalIn the event this information is protected by the Federal Confidentiality of Alcohol and Drug Abuse Patient Records regulations: The Federal rules restrict any use of the information to criminally investigate or prosecute any alcohol or drug abuse patient.[facility] HospitalIn the event this information is protected by the Federal Confidentiality of Alcohol and Drug Abuse Patient Records regulations: The Federal rules restrict any use of the information to criminally investigate or prosecute any alcohol or drug abuse patient.[facility] HospitalIn the event this information is protected by the Federal Confidentiality of Alcohol and Drug Abuse Patient Records regulations: The Federal rules restrict any use of the information to criminally investigate or prosecute any alcohol or drug abuse patient.[facility] HospitalIn the event this information is protected by the Federal Confidentiality of Alcohol and Drug Abuse Patient Records regulations: The Federal rules restrict any use of the information to criminally investigate or prosecute any alcohol or drug abuse patient.[facility] HospitalIn the event this information is protected by the Federal Confidentiality of Alcohol and Drug Abuse Patient Records regulations: The Federal rules restrict any use of the information to criminally investigate or prosecute any alcohol or drug abuse patient.[facility] HospitalIn the event this information is protected by the Federal Confidentiality of Alcohol and Drug Abuse Patient Records regulations: The Federal rules restrict any use of the information to criminally investigate or prosecute any alcohol or drug abuse patient.[facility] HospitalIn the event this information is protected by the Federal Confidentiality of Alcohol and Drug Abuse Patient Records regulations: The Federal rules restrict any use of the information to criminally investigate or prosecute any alcohol or drug abuse patient.[facility] HospitalIn the event this information is protected by the Federal Confidentiality of Alcohol and Drug Abuse Patient Records regulations: The Federal rules restrict any use of the information to criminally investigate or prosecute any alcohol or drug abuse patient.[facility]In the event this information is protected by the Federal Confidentiality of Alcohol and Drug Abuse Patient Records regulations: The Federal rules restrict any use of the information to criminally investigate or prosecute any alcohol or drug abuse patient.[facility] HospitalIn the event this information is protected by the Federal Confidentiality of Alcohol and Drug Abuse Patient Records regulations: The Federal rules restrict any use of the information to criminally investigate or prosecute any alcohol or drug abuse patient.[facility] HospitalIn the event this information is protected by the Federal Confidentiality of Alcohol and Drug Abuse Patient Records regulations: The Federal rules restrict any use of the information to criminally investigate or prosecute any alcohol or drug abuse patient.[facility] HospitalIn the event this information is protected by the Federal Confidentiality of Alcohol and Drug Abuse Patient Records regulations: The Federal rules restrict any use of the information to criminally investigate or prosecute any alcohol or drug abuse patient.[facility] HospitalIn the event this information is protected by the Federal Confidentiality of Alcohol and Drug Abuse Patient Records regulations: The Federal rules restrict any use of the information to criminally investigate or prosecute any alcohol or drug abuse patient.[facility] HospitalIn the event this information is protected by the Federal Confidentiality of Alcohol and Drug Abuse Patient Records regulations: The Federal rules restrict any use of the information to criminally investigate or prosecute any alcohol or drug abuse patient.[facility] HospitalIn the event this information is protected by the Federal Confidentiality of Alcohol and Drug Abuse Patient Records regulations: The Federal rules restrict any use of the information to criminally investigate or prosecute any alcohol or drug abuse patient.[facility] HospitalIn the event this information is protected by the Federal Confidentiality of Alcohol and Drug Abuse Patient Records regulations: The Federal rules restrict any use of the information to criminally investigate or prosecute any alcohol or drug abuse patient.[facility] HospitalIn the event this information is protected by the Federal Confidentiality of Alcohol and Drug Abuse Patient Records regulations: The Federal rules restrict any use of the information to criminally investigate or prosecute any alcohol or drug abuse patient.[facility] HospitalIn the event this information is protected by the Federal Confidentiality of Alcohol and Drug Abuse Patient Records regulations: The Federal rules restrict any use of the information to criminally investigate or prosecute any alcohol or drug abuse patient.[facility] HospitalIn the event this information is protected by the Federal Confidentiality of Alcohol and Drug Abuse Patient Records regulations: The Federal rules restrict any use of the information to criminally investigate or prosecute any alcohol or drug abuse patient.[facility] HospitalIn the event this information is protected by the Federal Confidentiality of Alcohol and Drug Abuse Patient Records regulations: The Federal rules restrict any use of the information to criminally investigate or prosecute any alcohol or drug abuse patient.[facility] HospitalIn the event this information is protected by the Federal Confidentiality of Alcohol and Drug Abuse Patient Records regulations: The Federal rules restrict any use of the information to criminally investigate or prosecute any alcohol or drug abuse patient.[facility] HospitalIn the event this information is protected by the Federal Confidentiality of Alcohol and Drug Abuse Patient Records regulations: The Federal rules restrict any use of the information to criminally investigate or prosecute any alcohol or drug abuse patient.[facility] HospitalIn the event this information is protected by the Federal Confidentiality of Alcohol and Drug Abuse Patient Records regulations: The Federal rules restrict any use of the information to criminally investigate or prosecute any alcohol or drug abuse patient.[facility] HospitalIn the event this information is protected by the Federal Confidentiality of Alcohol and Drug Abuse Patient Records regulations: The Federal rules restrict any use of the information to criminally investigate or prosecute any alcohol or drug abuse patient.[facility] HospitalIn the event this information is protected by the Federal Confidentiality of Alcohol and Drug Abuse Patient Records regulations: The Federal rules restrict any use of the information to criminally investigate or prosecute any alcohol or drug abuse patient.[facility] HospitalIn the event this information is protected by the Federal Confidentiality of Alcohol and Drug Abuse Patient Records regulations: The Federal rules restrict any use of the information to criminally investigate or prosecute any alcohol or drug abuse patient.[facility] HospitalIn the event this information is protected by the Federal Confidentiality of Alcohol and Drug Abuse Patient Records regulations: The Federal rules restrict any use of the information to criminally investigate or prosecute any alcohol or drug abuse patient.[facility] HospitalIn the event this information is protected by the Federal Confidentiality of Alcohol and Drug Abuse Patient Records regulations: The Federal rules restrict any use of the information to criminally investigate or prosecute any alcohol or drug abuse patient.[facility] HospitalIn the event this information is protected by the Federal Confidentiality of Alcohol and Drug Abuse Patient Records regulations: The Federal rules restrict any use of the information to criminally investigate or prosecute any alcohol or drug abuse patient.[facility] HospitalIn the event this information is protected by the Federal Confidentiality of Alcohol and Drug Abuse Patient Records regulations: The Federal rules restrict any use of the information to criminally investigate or prosecute any alcohol or drug abuse patient.[facility] HospitalIn the event this information is protected by the Federal Confidentiality of Alcohol and Drug Abuse Patient Records regulations: The Federal rules restrict any use of the information to criminally investigate or prosecute any alcohol or drug abuse patient.[facility] HospitalIn the event this information is protected by the Federal Confidentiality of Alcohol and Drug Abuse Patient Records regulations: The Federal rules restrict any use of the information to criminally investigate or prosecute any alcohol or drug abuse patient.[facility] HospitalIn the event this information is protected by the Federal Confidentiality of Alcohol and Drug Abuse Patient Records regulations: The Federal rules restrict any use of the information to criminally investigate or prosecute any alcohol or drug abuse patient.[facility] HospitalIn the event this information is protected by the Federal Confidentiality of Alcohol and Drug Abuse Patient Records regulations: The Federal rules restrict any use of the information to criminally investigate or prosecute any alcohol or drug abuse patient.[facility] HospitalIn the event this information is protected by the Federal Confidentiality of Alcohol and Drug Abuse Patient Records regulations: The Federal rules restrict any use of the information to criminally investigate or prosecute any alcohol or drug abuse patient.[facility] HospitalIn the event this information is protected by the Federal Confidentiality of Alcohol and Drug Abuse Patient Records regulations: The Federal rules restrict any use of the information to criminally investigate or prosecute any alcohol or drug abuse patient.[facility] HospitalIn the event this information is protected by the Federal Confidentiality of Alcohol and Drug Abuse Patient Records regulations: The Federal rules restrict any use of the information to criminally investigate or prosecute any alcohol or drug abuse patient.[facility] HospitalIn the event this information is protected by the Federal Confidentiality of Alcohol and Drug Abuse Patient Records regulations: The Federal rules restrict any use of the information to criminally investigate or prosecute any alcohol or drug abuse patient.[facility] HospitalIn the event this information is protected by the Federal Confidentiality of Alcohol and Drug Abuse Patient Records regulations: The Federal rules restrict any use of the information to criminally investigate or prosecute any alcohol or drug abuse patient.[facility] HospitalIn the event this information is protected by the Federal Confidentiality of Alcohol and Drug Abuse Patient Records regulations: The Federal rules restrict any use of the information to criminally investigate or prosecute any alcohol or drug abuse patient.[facility] HospitalIn the event this information is protected by the Federal Confidentiality of Alcohol and Drug Abuse Patient Records regulations: The Federal rules restrict any use of the information to criminally investigate or prosecute any alcohol or drug abuse patient.[facility] HospitalIn the event this information is protected by the Federal Confidentiality of Alcohol and Drug Abuse Patient Records regulations: The Federal rules restrict any use of the information to criminally investigate or prosecute any alcohol or drug abuse patient.[facility] HospitalIn the event this information is protected by the Federal Confidentiality of Alcohol and Drug Abuse Patient Records regulations: The Federal rules restrict any use of the information to criminally investigate or prosecute any alcohol or drug abuse patient.[facility] HospitalIn the event this information is protected by the Federal Confidentiality of Alcohol and Drug Abuse Patient Records regulations: The Federal rules restrict any use of the information to criminally investigate or prosecute any alcohol or drug abuse patient.[facility] HospitalIn the event this information is protected by the Federal Confidentiality of Alcohol and Drug Abuse Patient Records regulations: The Federal rules restrict any use of the information to criminally investigate or prosecute any alcohol or drug abuse patient.[facility] HospitalIn the event this information is protected by the Federal Confidentiality of Alcohol and Drug Abuse Patient Records regulations: The Federal rules restrict any use of the information to criminally investigate or prosecute any alcohol or drug abuse patient.[facility] HospitalIn the event this information is protected by the Federal Confidentiality of Alcohol and Drug Abuse Patient Records regulations: The Federal rules restrict any use of the information to criminally investigate or prosecute any alcohol or drug abuse patient.[facility] HospitalIn the event this information is protected by the Federal Confidentiality of Alcohol and Drug Abuse Patient Records regulations: The Federal rules restrict any use of the information to criminally investigate or prosecute any alcohol or drug abuse patient.[facility] HospitalIn the event this information is protected by the Federal Confidentiality of Alcohol and Drug Abuse Patient Records regulations: The Federal rules restrict any use of the information to criminally investigate or prosecute any alcohol or drug abuse patient.[facility] HospitalIn the event this information is protected by the Federal Confidentiality of Alcohol and Drug Abuse Patient Records regulations: The Federal rules restrict any use of the information to criminally investigate or prosecute any alcohol or drug abuse patient.[facility] HospitalIn the event this information is protected by the Federal Confidentiality of Alcohol and Drug Abuse Patient Records regulations: The Federal rules restrict any use of the information to criminally investigate or prosecute any alcohol or drug abuse patient.[facility] HospitalIn the event this information is protected by the Federal Confidentiality of Alcohol and Drug Abuse Patient Records regulations: The Federal rules restrict any use of the information to criminally investigate or prosecute any alcohol or drug abuse patient.[facility] HospitalIn the event this information is protected by the Federal Confidentiality of Alcohol and Drug Abuse Patient Records regulations: The Federal rules restrict any use of the information to criminally investigate or prosecute any alcohol or drug abuse patient.[facility] HospitalIn the event this information is protected by the Federal Confidentiality of Alcohol and Drug Abuse Patient Records regulations: The Federal rules restrict any use of the information to criminally investigate or prosecute any alcohol or drug abuse patient.[facility] HospitalIn the event this information is protected by the Federal Confidentiality of Alcohol and Drug Abuse Patient Records regulations: The Federal rules restrict any use of the information to criminally investigate or prosecute any alcohol or drug abuse patient.[facility] HospitalIn the event this information is protected by the Federal Confidentiality of Alcohol and Drug Abuse Patient Records regulations: The Federal rules restrict any use of the information to criminally investigate or prosecute any alcohol or drug abuse patient.[facility] HospitalIn the event this information is protected by the Federal Confidentiality of Alcohol and Drug Abuse Patient Records regulations: The Federal rules restrict any use of the information to criminally investigate or prosecute any alcohol or drug abuse patient.[facility] HospitalIn the event this information is protected by the Federal Confidentiality of Alcohol and Drug Abuse Patient Records regulations: The Federal rules restrict any use of the information to criminally investigate or prosecute any alcohol or drug abuse patient.[facility] ClinicIn the event this information is protected by the Federal Confidentiality of Alcohol and Drug Abuse Patient Records regulations: The Federal rules restrict any use of the information to criminally investigate or prosecute any alcohol or drug abuse patient.[facility] HospitalIn the event this information is protected by the Federal Confidentiality of Alcohol and Drug Abuse Patient Records regulations: The Federal rules restrict any use of the information to criminally investigate or prosecute any alcohol or drug abuse patient.[facility] HospitalIn the event this information is protected by the Federal Confidentiality of Alcohol and Drug Abuse Patient Records regulations: The Federal rules restrict any use of the information to criminally investigate or prosecute any alcohol or drug abuse patient.[facility] HospitalIn the event this information is protected by the Federal Confidentiality of Alcohol and Drug Abuse Patient Records regulations: The Federal rules restrict any use of the information to criminally investigate or prosecute any alcohol or drug abuse patient.[facility] HospitalIn the event this information is protected by the Federal Confidentiality of Alcohol and Drug Abuse Patient Records regulations: The Federal rules restrict any use of the information to criminally investigate or prosecute any alcohol or drug abuse patient.[facility] HospitalIn the event this information is protected by the Federal Confidentiality of Alcohol and Drug Abuse Patient Records regulations: The Federal rules restrict any use of the information to criminally investigate or prosecute any alcohol or drug abuse patient.[facility] HospitalIn the event this information is protected by the Federal Confidentiality of Alcohol and Drug Abuse Patient Records regulations: The Federal rules restrict any use of the information to criminally investigate or prosecute any alcohol or drug abuse patient.[facility] HospitalIn the event this information is protected by the Federal Confidentiality of Alcohol and Drug Abuse Patient Records regulations: The Federal rules restrict any use of the information to criminally investigate or prosecute any alcohol or drug abuse patient.[facility] HospitalIn the event this information is protected by the Federal Confidentiality of Alcohol and Drug Abuse Patient Records regulations: The Federal rules restrict any use of the information to criminally investigate or prosecute any alcohol or drug abuse patient.[facility] HospitalIn the event this information is protected by the Federal Confidentiality of Alcohol and Drug Abuse Patient Records regulations: The Federal rules restrict any use of the information to criminally investigate or prosecute any alcohol or drug abuse patient.[facility] HospitalIn the event this information is protected by the Federal Confidentiality of Alcohol and Drug Abuse Patient Records regulations: The Federal rules restrict any use of the information to criminally investigate or prosecute any alcohol or drug abuse patient.[facility] HospitalIn the event this information is protected by the Federal Confidentiality of Alcohol and Drug Abuse Patient Records regulations: The Federal rules restrict any use of the information to criminally investigate or prosecute any alcohol or drug abuse patient.[facility] HospitalIn the event this information is protected by the Federal Confidentiality of Alcohol and Drug Abuse Patient Records regulations: The Federal rules restrict any use of the information to criminally investigate or prosecute any alcohol or drug abuse patient.[facility] Care Teams (unrecognized sec tion and content) Orthopaedic General Relationship Specialty Start Date End Date Rylee Henson MD [address] [place], [place] [address] PCP - General Family Practice 12/02/16 Jadon Workman [address] [place] [address] Ophthalmology 02/11/17 Shad Rae [address] [facility] [place] [address] Cardiology 02/11/17 Nilda Gandhi I, DO [address] [address]1271 Nephrology 02/20/17 Felicia Irwin MD [address] [place], [place] [id number] [employer] 02/20/17 [employer] 03/15/19 Orthopaedic General Relationship Specialty Start Date End Date Rylee Henson MD [address] [place] [address] PCP - General Family Practice 12/02/16 Jadon Workman [address] [place] [address] Ophthalmology 02/11/17 Shad Rae [address] [facility] [place] [address] Cardiology 02/11/17 Nilda Gandhi I, [address] [place] [address] Nephrology 02/20/17 Felicia Irwin MD [address] [facility] [place] [address] [employer]M [employer]SULTANT 02/20/17 [employer] 03/15/19 Orthopaedic General Relationship Specialty Start Date End Date Rylee Henson MD [address] [facility] [place] [address] PCP - General Family Practice 12/02/16 Jadon Workman [address] [place] [address] Ophthalmology 02/11/17 Shad Rae [address] [place] [facility] [place] [address] Cardiology 02/11/17 Nilda Gandhi I, [address] [place] [address] Nephrology 02/20/17 Felicia Irwin MD [address] [facility] [place] [address] [employer]M [employer]ANT 02/20/17 [employer] 03/15/19 Orthopaedic General Relationship Specialty Start Date End Date Rylee Henson MD [address] [facility] [place] [address] PCP - General Family Practice 12/02/16 Jadon Workman [address] [place] [address] Ophthalmology 02/11/17 Shad Rae [address] [facility] [place] [address] Cardiology 02/11/17 Nilda Gandhi I, DO [address] [place] [address], [place] [address] Nephrology 02/20/17 Felicia Irwin MD [address] [facility] [place] [address] [employer] 02/20/17 [employer] 03/15/19 Orthopaedic General Relationship Specialty Start Date End Date Rylee Henson MD [address] [facility] [place] [address] PCP - General Family Practice 12/02/16 Jadon Workman [address] [place] [address] Ophthalmology 02/11/17 Shad Rae [address] [facility] [place] [address] Cardiology 02/11/17 Nilda Gandhi I, DO [address] [place] [address] Nephrology 02/20/17 NeyFelicia Dickson MD [address] [facility] [place] [address] [employer]M [employer]ANT 02/20/17 [employer] 03/15/19 Orthopaedic General Relationship Specialty Start Date End Date Rylee Henson MD [address] [facility] [place] [address] PCP - General Family Practice 12/02/16 Jadon Workman [address] [place] [address] Ophthalmology 02/11/17 Shad Rae [address] [facility] [address] Cardiology 02/11/17 Nilda Gandhi I, DO [address] [place] [address], [place] [address] Nephrology 02/20/17 Felicia Irwin MD [address] [place] [address] [employer] 02/20/17 [employer] 03/15/19 Orthopaedic General Relationship Specialty Start Date End Date Rylee Henson MD [address] [place] [address] PCP - General Family Practice 12/02/16 Jadon Workman [address] [place] [address] Ophthalmology 02/11/17 Shad Rae [address] [facility] [address] Cardiology 02/11/17 Nilda Gandhi I, DO [address] [place] [address] Nephrology 02/20/17 Felicia Irwin MD [address] [facility] [place] [address] [employer]M [employer] 02/20/17 [employer] 03/15/19 Orthopaedic General Relationship Specialty Start Date End Date Rylee Henson MD [address] [facility] [place] [address] PCP - General Family Practice 12/02/16 Jadon Workman [address] [place] [address], [place] [address] Ophthalmology 02/11/[address] [place] [address] Cardiology 02/11/17 Nilda Gandhi I, DO [address] [place] [address] Nephrology 02/20/17 Felicia Irwin MD [address] [facility] [place] [address] [employer]M CONS[employer]ANT 02/20/17 [employer] 03/15/19 Orthopaedic General Relationship Specialty Start Date End Date Rylee Henson MD [address] [facility] [place] [address] PCP - General Family Practice 12/02/16 Jadon Workman [address] [place] [address], [place] [address] Ophthalmology 02/11/17 Shad Rae [address] [place] [facility] [place] [address] Cardiology 02/11/17 Nilda Gandhi I, DO [address] [facility] [place] [address] Nephrology 02/20/17 Felicia Irwin MD [address] [facility] [place] [address] [employer]M [employer] 02/20/17 [employer] 03/15/19 Orthopaedic General Relationship Specialty Start Date End Date Rylee Henson MD [address] [place] [address] PCP - General Family Practice 12/02/16 Jadon Workman [address] [place] [address] Ophthalmology 02/11/17 Shad Rae [address] [facility] [address] Cardiology 02/11/17 Nilda Gandhi I, DO [address] [place] [address] Nephrology 02/20/17 Felicia Irwin MD [address] [facility] [place] [address] [employer]M [employer] 02/20/17 [employer] 03/15/19 Orthopaedic General Relationship Specialty Start Date End Date Rylee Henson MD [address] [place] [address] PCP - General Family Practice 12/02/16 [place] [address] Ophthalmology 02/11/17 Shad Rae [address] [facility] [place] [address] Cardiology 02/11/17 Nilda Gandhi I, DO [address] [place] [address] Nephrology 02/20/17 Felicia Irwin MD [address] [facility] [place] [address] [employer]M [employer]ANT 02/20/17 [employer] 03/15/19 Orthopaedic General Relationship Specialty Start Date End Date Rylee Henson MD [address] [facility] [place] [address] PCP - General Family Practice 12/02/16 Jadon Workman [address] [place] [address] Ophthalmology 02/11/17 Shad Rae [address] [place] [facility] [place] [address] Cardiology 02/11/17 Nilda Gandhi I, DO [address] [place] [address] Nephrology 02/20/17 Felicia Irwin MD [address] [facility] [place] [address] [employer]M CONSULTANT 02/20/17 [employer] 03/15/19 Orthopaedic General Relationship Specialty Start Date End Date Rylee Henson MD [address] [facility] [place] [address] PCP - General Family Medicine 12/02/16 Jadon Workman [address] [place] [address] Ophthalmology 02/11/17 Shad Rae [address] [place] [facility] [place] [address] Cardiology 02/11/17 Nilda Gandhi I, DO [address] [place] [address] Nephrology 02/20/17 Felicia Irwin MD [address] [facility] [place] [address] [employer]M CONS[employer]ANT 02/20/17 [employer] 03/15/19 Orthopaedic General Relationship Specialty Start Date End Date Rylee Henson MD [address] [facility] [place] [address] PCP - General Family Medicine 12/02/16 Jadon Workman [address] [place] [address] Ophthalmology 02/11/17 Shad Rae [address] [place] [facility] [place] [address] Cardiology 02/11/17 Nilda Gandhi I, DO [address] [facility] [address] [place] [address] Nephrology 02/20/17 Felicia Irwin MD [address] [facility] [place] [address] [employer]M CONSULTANT 02/20/17 [employer] 03/15/19 Orthopaedic General Relationship Specialty Start Date End Date Rylee Henson MD [address] [facility] [place] [address] PCP - General Family Medicine 12/02/16 Jadon Workman [address] [place] [address] Ophthalmology 02/11/17 Shad Rae [address] [place] [facility] [place] [address] Cardiology 02/11/17 Nilda Gandhi I, DO [address] [place] [address] Nephrology 02/20/17 Felicia Irwin MD [address] [facility] [place] [address] LAW FIRM CONSULTANT 02/20/17 [employer] 03/15/19 Orthopaedic General Relationship Specialty Start Date End Date Rylee Henson MD [address] [facility] [place] [address] PCP - General Family Medicine 12/02/16 Jadon Workman [address] [place] [address] Ophthalmology 02/11/17 Shad Rae [address] [place] [facility] [place] [address] Cardiology 02/11/17 Nilda Gandhi I, DO [address] [place] [address] Nephrology 02/20/17 Felicia Irwin MD [address] [facility] [place] [address] LAW FIRM CONSULTANT 02/20/17 [employer] 03/15/19 Orthopaedic General Relationship Specialty Start Date End Date Rylee Henson MD [address] [place] [address] PCP - General Family Medicine 12/02/16 Jadon Workman [address] [place] [address] Ophthalmology 02/11/17 Shad Rae [address] [place] [address] Cardiology 02/11/17 Nilda Gandhi I, DO [address] [place] [address], [place] [address] Nephrology 02/20/17 Felicia Irwin MD [address] [place] [address] [employer]M CONSULTANT 02/20/17 [employer] 03/15/19 Orthopaedic General Relationship Specialty Start Date End Date Rylee Henson MD [address] [place] [address] PCP - General Family Medicine 12/02/16 Jadon Workman [address] [place] [address] Ophthalmology 02/11/17 Shad Rae [address] [facility] [address] Cardiology 02/11/17 Nilda Gandhi I, DO [address] [place] [address] Nephrology 02/20/17 Felicia Irwin MD [address] [facility] [address] [employer]M [employer]ANT 02/20/17 [employer] 03/15/19 Orthopaedic General Relationship Specialty Start Date End Date Rylee Henson MD [address] [place] [address] PCP - General Family Medicine 12/02/16 Jadon Workman [facility] [place] [address] Ophthalmology 02/11/17 Shad Rae [address] [place] [address] Cardiology 02/11/17 Nilda Gandhi I, DO [address] [place] [address] Nephrology 02/20/17 Felicia Irwin MD [address] [place] [address] [employer]ANT 02/20/17 [employer] 03/15/19 Orthopaedic General Relationship Specialty Start Date End Date Rylee Henson MD [address] [place] [address] PCP - General Family Medicine 12/02/16 Jadon Workman [facility] [place] [address] Ophthalmology 02/11/17 Shad Rae [address] [place] [address] Cardiology 02/11/17 Nilda Gandhi I, DO [address] [facility] [place] [address] Nephrology 02/20/17 Felicia Irwin MD [address] [facility] [address] LAW FIRM CONSULTANT 02/20/17 [employer] 03/15/19 Orthopaedic General Relationship Specialty Start Date End Date Rylee Henson MD [address] [facility] [address] PCP - General Family Medicine 12/02/16 Jadon Workman [address] [place] [address] Ophthalmology 02/11/17 Shad Rae [address] [facility] [place] [address] Cardiology 02/11/17 Nilda Gandhi I, DO [address] [facility] [place] [address] Nephrology 02/20/17 Felicia Irwin MD [address] [facility] [place] [address] LAW FIRM CONSULTANT 02/20/17 [employer] 03/15/19 Orthopaedic General Relationship Specialty Start Date End Date Rylee Henson MD [address] [facility] [address] PCP - General Family Medicine 12/02/16 Jadon Workman [address] [place] [address] Ophthalmology 02/11/17 Shad Rae [address] [facility] [place] [address] Cardiology 02/11/17 Nilda Gandhi I, DO [address] [place] [address] Nephrology 02/20/17 Felicia Irwin MD [address] [facility] [address] LAW [employer]M CONSULTANT 02/20/17 [employer] 03/15/19 Orthopaedic General Relationship Specialty Start Date End Date Rylee Henson MD [address] [facility] [address] PCP - General Family Medicine 12/02/16 Jadon Workman [address] [place] [address] Ophthalmology 02/11/17 Shad Rae [address] [place] [facility] [place] [address] Cardiology 02/11/17 Nilda Gandhi I, DO [address] [place] [address] Nephrology 02/20/17 Felicia Irwin MD [address] [facility] [address] [employer]M CONSULTANT 02/20/17 [employer] 03/15/19 Orthopaedic General Relationship Specialty Start Date End Date Rylee Henson MD [address] [facility] [address] PCP - General Family Medicine 12/02/16 Jadon Workman [address]19 [facility] [place] [address] Ophthalmology 02/11/17 Shad Rae [address] [facility] [place] [address] Cardiology 02/11/17 Nilda Gandhi I, DO [address] [place] [address] Nephrology 02/20/17 Felicia Irwin MD [address] [facility] [place] [address] [employer]M CONSULTANT 02/20/17 [employer] 03/15/19 Orthopaedic General Relationship Specialty Start Date End Date Rylee Henson MD [address] [facility] [address] PCP - General Family Medicine 12/02/16 Jadon Workman [address] [place] [address] Ophthalmology 02/11/17 Shad Rae [address] [place] [facility] [place] [address] Cardiology 02/11/17 Nilda Gandhi I, DO [address] [facility] [place] [address] Nephrology 02/20/17 Felicia Irwin MD [address]34 [facility] [address] [employer]M CONSULTANT 02/20/17 [employer] 03/15/19 Orthopaedic General Relationship Specialty Start Date End Date Rylee Henson MD [address] [place] [address] PCP - General Family Medicine 12/02/16 Jadon Workman [address] [place] [address] Ophthalmology 02/11/17 Shad Rae [address] [facility] [place] [address] Cardiology 02/11/17 Nilda Gandhi I, [address] [place] [address] Nephrology 02/20/17 Felicia Irwin MD [address] [facility] [address] LAW FIRM CONSULTANT 02/20/17 [employer] 03/15/19 Orthopaedic General Relationship Specialty Start Date End Date Rylee Henson MD [address] [facility] [address] PCP - General Family Medicine 12/02/16 Jadon Workman [address] [place] [address] Ophthalmology 02/11/17 Shad Rae [address] [place] [facility] [place] [address] Cardiology 02/11/17 Nilda Gandhi I, [address] [place] [address] Nephrology 02/20/17 Felicia Irwin MD [address] [facility] [address] [employer]M CONSULTANT 02/20/17 [employer] 03/15/19 Orthopaedic General Relationship Specialty Start Date End Date Rylee Henson MD [address] [place] [address] PCP - General Family Medicine 12/02/16 Jadon Workman [address] [place] [address] Ophthalmology 02/11/17 Shad Rae [address] [facility] [place] [address] Cardiology 02/11/17 Nilda Gandhi I, DO [address] [place] [address], [place] [address] Nephrology 02/20/17 Felicia Irwin MD [address] [facility] [address] [employer]M CONSULTANT 02/20/17 [employer] 03/15/19 Orthopaedic General Relationship Specialty Start Date End Date Rylee Henson MD [address] [facility] [address] PCP - General Family Medicine 12/02/16 Jadon Workman [address] [place] [address] Ophthalmology 02/11/17 Shad Rae [address] [facility] [address] Cardiology 02/11/17 Nilda Gandhi I, DO [address] [place] [address] Nephrology 02/20/17 Felicia Irwin MD [address] [facility] [address] LAW FIRM CONSULTANT 02/20/17 [employer] 03/15/19 Orthopaedic General Relationship Specialty Start Date End Date Rylee Henson MD [address] [place] [address] PCP - General Family Medicine 12/02/16 Jadon Workman [address] [place] [address] Ophthalmology 02/11/17 Shad Rae [address] [place] [address] Cardiology 02/11/17 Nilda Gandhi I, DO [address] [address] Nephrology 02/20/17 Felicia Irwin MD [address] [place] [address] LAW [employer]M CONSULTANT 02/20/17 [employer] 03/15/19 Orthopaedic General Relationship Specialty Start Date End Date Rylee Henson MD [address] [place] [address] PCP - General Family Medicine 12/02/16 Jadon Workman [facility] [place] [address] Ophthalmology 02/11/17 Shad Rae [address] [place] [address] Cardiology 02/11/17 Nilda Gandhi I, DO [address] [place] [address] Nephrology 02/20/17 Felicia Irwin MD [address] [place] [address] LAW [employer]M CONSULTANT 02/20/17 [employer] 03/15/19 Orthopaedic General Relationship Specialty Start Date End Date Rylee Henson MD [address] [facility] [address] PCP - General Family Medicine 12/02/16 Jadon Workman [address] [place] [address] Ophthalmology 02/11/17 Shad Rae [address] [facility] [place] [address] Cardiology 02/11/17 Nilda Gandhi I, DO [address] [facility] [place] [address] Nephrology 02/20/17 Felicia Irwin MD [address] [place] [address] LAW FIRM CONSULTANT 02/20/17 [employer] 03/15/19 Orthopaedic General Relationship Specialty Start Date End Date Rylee Henson MD [address] [facility] [place] [address] PCP - General Family Medicine 12/02/16 Jadon Workman [address] [place] [address] Ophthalmology 02/11/17 Shad Rae [address] [facility] [place] [address] Cardiology 02/11/17 Nilda Gandhi I, DO [address] [place] [address] Nephrology 02/20/17 Felicia Irwin MD [address] [place] [place] [address] LAW FIRM CONSULTANT 02/20/17 [employer] 03/15/19 Orthopaedic General Relationship Specialty Start Date End Date Rylee Henson MD [address] [facility] [place] [address] PCP - General Family Medicine 12/02/16 Jadon Workman [address] [place] [address] Ophthalmology 02/11/17 Shad Rae [address] [place] [facility] [place] [address] Cardiology 02/11/17 Nilda Gandhi I, DO [address] [place] [address] Nephrology 02/20/17 Felicia Irwin MD [address] [facility] [place] [address] LAW FIRM CONSULTANT 02/20/17 [employer] 03/15/19 Orthopaedic General Relationship Specialty Start Date End Date Rylee Henson MD [address] [place] [address] PCP - General Family Medicine 05/28/22 Jadon Workman [address] [place] [address] Ophthalmology 02/11/17 Shad Rae [address] [facility] [place] [address] Cardiology 02/11/17 Nilda Gandhi I, [address] [place] [address] Nephrology 02/20/17 Felicia Irwin MD [address] [facility] [place] [address] LAW FIRM CONSULTANT 02/20/17 [employer] 03/15/19 Orthopaedic General Relationship Specialty Start Date End Date Rylee Henson MD [address] [facility] [place] [address] PCP - General Family Medicine 05/28/22 Jadon Workman [address] [place] [address] Ophthalmology 02/11/17 Shad Rae [address] [place] [facility] [place] [address] Cardiology 02/11/17 Nilda Gandhi I, [address] [place] [address] Nephrology 02/20/17 Felicia Irwin MD [address] [facility] [place] [address] LAW FIRM CONSULTANT 02/20/17 [employer] 03/15/19 Orthopaedic General Relationship Specialty Start Date End Date Rylee Henson MD [address] [place] [place] [address] PCP - General Family Medicine 05/28/22 Jadon Workman [address] [place] [address] Ophthalmology 02/11/17 Shad Rae [address] [facility] [place] [address] Cardiology 02/11/17 Nilda Gandhi I, [address] [place] [address] Nephrology 02/20/17 Felicia Irwin MD [address] [facility] [place] [address] LAW FIRM CONSULTANT 02/20/17 [employer] 03/15/19 Orthopaedic General Relationship Specialty Start Date End Date Rylee Henson MD [address] [place] [place] [address] PCP - General Family Medicine 05/28/22 Jadon Workman [address] [place] [address] Ophthalmology 02/11/17 Shad Rae [address] [facility] [place] [address] Cardiology 02/11/17 Nilda Gandhi I, [address] [place] [address], [place] [address] Nephrology 02/20/17 Felicia Irwin MD [address] [facility] [place] [address] LAW FIRM CONSULTANT 02/20/17 [employer] 03/15/19 Orthopaedic General Relationship Specialty Start Date End Date Rylee Henson MD [address] [facility] [place] [address] PCP - General Family Medicine 05/28/22 Jadon Workman [address] [place] [address] Ophthalmology 02/11/17 Shad Rae [address] [facility] [place] [address] Cardiology 02/11/17 Nilda Gandhi I, [address] [place] [address], [place] [address] Nephrology 02/20/17 Felicia Irwin MD [address] [facility] [place] [address] LAW FIRM CONSULTANT 02/20/17 [employer] 03/15/19 Orthopaedic General Relationship Specialty Start Date End Date Rylee Henson MD [address] [facility] [place] [address] PCP - General Family Medicine 05/28/22 Jadon Workman [address] [place] [address] Ophthalmology 02/11/17 Shad Rae [address] [facility] [place] [address] Cardiology 02/11/17 Nilda Gandhi I, DO [address] [place] [address] Nephrology 02/20/17 Felicia Irwin MD [address] [facility], [place] [address] LAW FIRM CONSULTANT 02/20/17 [employer] 03/15/19 Orthopaedic General Relationship Specialty Start Date End Date Rylee Henson MD [address] [place] [address] PCP - General Family Medicine 05/28/22 Jadon Workman [address] [place] [address] Ophthalmology 02/11/[address] [place] [facility] [place] [address] Cardiology 02/11/17 Nilda Gandhi I, DO [address] [place] [address] Nephrology 02/20/17 Felicia Irwin MD [address] [facility] [place] [address] LAW FIRM CONSULTANT 02/20/17 [employer] 03/15/19 Orthopaedic General Relationship Specialty Start Date End Date Rylee Henson MD [address] [place] [place] [address] PCP - General Family Medicine 05/28/22 Jadon Workman [facility] [place] [address] Ophthalmology 02/11/17 Shad Rae [address] [place] [facility] [place] [address] Cardiology 02/11/17 Nilda Gandhi I, DO [address] [place] [address] Nephrology 02/20/17 Felicia Irwin MD [address] [place] [place] [address] LAW FIRM CONSULTANT 02/20/17 [employer] 03/15/19 Orthopaedic General Relationship Specialty Start Date End Date Rylee Henson MD [address] [facility] [place] [address] PCP - General Family Medicine 05/28/22 Jadon Workman [address] [place] [address], [place] [address] Ophthalmology 02/11/17 Shad Rae [address] [facility] [place] [address] Cardiology 02/11/17 Nilda Gandhi I, DO [address] [place] [address] Nephrology 02/20/17 Felicia Irwin MD [address] [place] [place] [address] LAW FIRM CONSULTANT 02/20/17 [employer] 03/15/19 Orthopaedic General Relationship Specialty Start Date End Date Rylee Henson MD [address] [place] [place] [address] PCP - General Family Medicine 05/28/22 Jadon Workman [address] [place] [address], [place] [address] Ophthalmology 02/11/17 Shad Rae [address] [facility] [place] [address] Cardiology 02/11/17 Nilda Gandhi I, DO [address] [place] [address] Nephrology 02/20/17 Felicia Irwin MD [address] [facility] [place] [address] LAW FIRM CONSULTANT 02/20/17 [employer] 03/15/19 Orthopaedic General Relationship Specialty Start Date End Date Rylee Henson MD [address] [facility] [place] [address] PCP - General Family Medicine 05/28/22 Jadon Workman [address] [place] [address] Ophthalmology 02/11/17 Shad Rae [address] [place] [facility] [place] [address] Cardiology 02/11/17 Nilda Gandhi I, DO [address] [place] [address] Nephrology 02/20/17 Felicia Irwin MD [address] [place] [address] LAW FIRM CONSULTANT 02/20/17 [employer] 03/15/19 Orthopaedic General Relationship Specialty Start Date End Date Rylee Henson MD [address] [place] [address] PCP - General Family Medicine 05/28/22 Jadon Workman [address] [facility] [place] [address] Ophthalmology 02/11/17 Shad Rae [address] [place] [facility] [place] [address] Cardiology 02/11/17 Nilda Gandhi I, DO [address] [place] [address] Nephrology 02/20/17 Felicia Irwin MD [address] [place] [address] LAW FIRM CONSULTANT 02/20/17 [employer] 03/15/19 Orthopaedic General Relationship Specialty Start Date End Date Rylee Henson MD [address] [place] [address] PCP - General Family Medicine 05/28/22 Jadon Workman [address] [place] [address] Ophthalmology 02/11/17 Shad Rae [address] [place] [facility] [place] [address] Cardiology 02/11/17 Nilda Gandhi I, DO [address] [place] [address] Nephrology 02/20/17 Felicia Irwin MD [address] [place] [address] LAW FIRM CONSULTANT 02/20/17 [employer] 03/15/19 Orthopaedic General Relationship Specialty Start Date End Date Rylee Henson MD [address] [place], [place] [address]2871 PCP - General Family Medicine 05/28/22 Jadon Workman [address] [place] [address] Ophthalmology 02/11/17 Shad Rae [address] [place] [address] Cardiology 02/11/17 Nilda Gandhi I, DO [address] [address] Nephrology 02/20/17 Felicia Irwin MD [address] [place], [place] [address]49[address] LAW FIRM CONSULTANT 02/20/17 [employer] 03/15/19 Orthopaedic General Relationship Specialty Start Date End Date Rylee Henson MD [address] [place], [place] [address]2521 PCP - General Family Medicine 05/28/22 Jadon Workman [address] [place] [address] Ophthalmology 02/11/17 Shad Rae [address] [place] [address] Cardiology 02/11/17 Nilda Gandhi I, DO [address] [place] [address] Nephrology 02/20/17 Felicia Irwin MD [address] [place] [address] LAW FIRM CONSULTANT 02/20/17 [employer] 03/15/19 Orthopaedic General Relationship Specialty Start Date End Date Rylee Henson MD [address] [place] [address] PCP - General Family Medicine 05/28/22 Jadon Workman [address] [facility] [place] [address] Ophthalmology 02/11/17 Shad Rae [address] [place] [address] Cardiology 02/11/17 Nilda Gandhi I, DO [address] [address] Nephrology 02/20/17 Felicia Irwin MD [address] [place] [address] LAW FIRM CONSULTANT 02/20/17 [employer] 03/15/19 Orthopaedic General Relationship Specialty Start Date End Date Rylee Henson MD [address] [place] [address] PCP - General Family Medicine 05/28/22 Jadno Workman [address] [place] [address] Ophthalmology 02/11/17 Shad Rae [address] [place] [address] Cardiology 02/11/17 Nilda Gandhi I, DO [address] [address] Nephrology 02/20/17 Felicia Irwin MD [address] [place] [address] LAW FIRM CONSULTANT 02/20/17 [employer] 03/15/19 Orthopaedic General Relationship Specialty Start Date End Date Rylee Henson MD [address] [place] [address] PCP - General Family Medicine 05/28/22 Jadon Workman [address] [place] [address] Ophthalmology 02/11/17 Shad Rae [address] [place] [address] Cardiology 02/11/17 Nilda Gandhi I, DO [address] [address] Nephrology 02/20/17 Felicia Irwin MD [address] [place], [place] [address] LAW FIRM CONSULTANT 02/20/17 [employer] 03/15/19 Orthopaedic General Relationship Specialty Start Date End Date Rylee Henson MD [address] [place], [place] 996741 PCP - General Family Medicine 05/28/22 Jadon Workman [address] [place], [place] [address] Ophthalmology 02/11/17 Shad Rae [address] [place] [address] Cardiology 02/11/17 Nilda Gandhi I, DO [address] [address] Nephrology 02/20/17 Felicia Irwin MD [address] [place], [place] 048561 LAW FIRM CONSULTANT 02/20/17 [employer] 03/15/19 Orthopaedic General Relationship Specialty Start Date End Date Rylee Henson MD [address] [place], [place] 388941 PCP - General Family Medicine 05/28/22 Jadon Workman [address] [place], [place] 862911 Ophthalmology 02/11/17 Shad Rae [address] [place] [address] Cardiology 02/11/17 Nilda Gandhi I, DO [address] [place] [address] Nephrology 02/20/17 Felicia Irwin MD [address] [place] [address] LAW FIRM CONSULTANT 02/20/17 [employer] 03/15/19 Orthopaedic General Relationship Specialty Start Date End Date Rylee Henson MD [address] [place] [address] PCP - General Family Medicine 05/28/22 Jadon Workman [address] [place] [address] Ophthalmology 02/11/17 Shad Rae [address] [place] [address] Cardiology 02/11/17 Nilda Gandhi I, DO [address] [address] Nephrology 02/20/17 Felicia Irwin MD [address] [place] [address] LAW FIRM CONSULTANT 02/20/17 [employer] 03/15/19 Orthopaedic General Relationship Specialty Start Date End Date Rylee Henson MD [address] [place], [place] [address]701 PCP - General Family Medicine 05/28/22 Jadon Workman [address] [place] [address] Ophthalmology 02/11/17 Shad Rae [address] [place] [address] Cardiology 02/11/17 Nilda Gandhi I, DO [address] [id number] Nephrology 02/20/17 Felicia Irwin MD [address] [place] [address] LAW FIRM CONSULTANT 02/20/17 [employer] 03/15/19 Orthopaedic General Relationship Specialty Start Date End Date Rylee Henson MD [address] [place], [place] [address]46321 PCP - General Family Medicine 05/28/22 Jadon Workman [address] [place] [address] Ophthalmology 02/11/17 Shad Rae MD [address] [place] [address] Cardiology 02/11/17 Nilda Gandhi I, DO [address] [place] [id number] Nephrology 02/20/17 Felicia Irwin MD [address] [place], [place] 776461 LAW FIRM CONSULTANT 02/20/17 [employer] 03/15/19 Orthopaedic General Relationship Specialty Start Date End Date Rylee Henson MD [address] [place] [address] PCP - General Family Medicine 05/28/22 Jadon Workman [address] [place] [address] Ophthalmology 02/11/17 Shad Rae MD [address] [place] [address] Cardiology 02/11/17 Nilda Gandhi I, DO [address] [address] Nephrology 02/20/17 Felicia Irwin MD [address] [place] [address] LAW FIRM CONSULTANT 02/20/17 [employer] 03/15/19 Orthopaedic General Relationship Specialty Start Date End Date Rylee Henson MD [address] [place] [address] PCP - General Family Medicine 05/28/22 Jadon Workman [address] [place] [address] Ophthalmology 02/11/17 Shad Rae MD [address] [place] [address] Cardiology 02/11/17 Nilda Gandhi I, DO [address] [address] Nephrology 02/20/17 Felicia Irwin MD [address] [place] [address] LAW FIRM CONSULTANT 02/20/17 [employer] 03/15/19 Orthopaedic General Relationship Specialty Start Date End Date Rylee Henson MD [address] [place] [address] PCP - General Family Medicine 05/28/22 Jadon Workman [address] [place] [address] Ophthalmology 02/11/17 Shad Rae MD [address] [place] [address] Cardiology 02/11/17 Nilda Gandhi I, DO [address] [id number] Nephrology 02/20/17 Felicia Irwin MD [address] [place], [place] [address] LAW FIRM CONSULTANT 02/20/17 [employer] 03/15/19 Orthopaedic General Relationship Specialty Start Date End Date Rylee Henson MD [address] [place], [place] [address]211 PCP - General Family Medicine 05/28/22 Jadon Workman [address] [place] [address] Ophthalmology 02/11/17 Shad Rae MD [address] [place] [address] Cardiology 02/11/17 Nilda Gandhi I, DO [address] [address] Nephrology 02/20/17 Felicia Irwin MD [address] [place], [place] 224981 LAW FIRM CONSULTANT 02/20/17 [employer] 03/15/19 Orthopaedic General Relationship Specialty Start Date End Date Rylee Henson MD [address] [place], [place] 559441 PCP - General Family Medicine 05/28/22 Jadon Workman [address] [place] [address] Ophthalmology 02/11/17 Shad Rae MD [address] [place] [address] Cardiology 02/11/17 Nilda Gandhi I, DO [address] [place] [address] Nephrology 02/20/17 Felicia Irwin MD [address] [place] [address] LAW FIRM CONSULTANT 02/20/17 [employer] 03/15/19 Orthopaedic General Relationship Specialty Start Date End Date Rylee Henson MD [address] [place] [address] PCP - General Family Medicine 05/28/22 Jadon Workman [address] [place] [address] Ophthalmology 02/11/17 Shad Rae MD [address] [place] [address] Cardiology 02/11/17 Nilda Gandhi I, DO [address] [address] Nephrology 02/20/17 Felicia Irwin MD [address] [place], [place] [address]05[address] LAW FIRM CONSULTANT 02/20/17 [employer] 03/15/19 Reason for Visit (unrecogniz ed section and content) Reason Comments Halima Reason Comments home health calling, asking for verbal o rder Reason Comments Transition Of Care Reason Comments [facility], PT, Plan of Care FYI-No Action Needed Reason Comments Blood Pressure Update Orders Reason Comments Results Reason Comments Patient Update Reason Comments OT plan of care Reason Comments BP & BS readings Reason Onset Date Comments Refill Request 08/30/2021 Reason Comments Patient Update Patient Question Reason Onset Date Comments Refill Request 09/19/2021 Patient Update 09/19/2021 Reason Onset Date Comments Refill Request 09/28/2021 Reason Comments Release Of Medical Records Reason Comments Percocet Reason Comments Patient Question Reason Onset Date Comments Refill Request 10/30/2021 Reason Comments Follow Up Reason Onset Date Comments Refill Request 06/29/2021 Reason Onset Date Comments Refill Request 12/03/2021 Reason Onset Date Comments refill rx issue 12/07/2021 Reason Onset Date Comments Refill Request 01/08/2022 Reason Onset Date Comments Refill Request 01/29/2022 Reason Comments Pain, Back Reason Onset Date Comments Refill Request 01/31/2022 Reason Comments Results Radiology Appointment Reason Comments Derm Problem Raw area on right lo wer back Reason Comments Orders Reason Comments ultrasound results Reason Comments Ultrasound questions Reason Comments problem with order Reason Onset Date Comments Refill Request 03/02/2022 Reason Comments Established Patient Follow Up nail care Reason Comments Nausea X1 week with not fe eling well Shortness of Breath X2 days Left Knee Pain Wants it looked at d ue to it buckling while coming in here Reason Comments Home Health Point of Care Results Reason Onset Date Comments Refill Request 04/02/2022 Reason Comments blood pressure readings Reason Comments Forms Reason Comments Cough Reason Comments Consult Reason Onset Date Comments Refill Request 05/02/2022 Reason Onset Date Comments Refill Request 06/03/2022 Reason Comments [facility] HH Request Reason Onset Date Comments Refill Request 06/17/2022 Reason Comments Follow Up 6 month Reason Onset Date Comments Refill Request 06/26/2022 Reason Comments Ulcer Established Patient Follow Up Diabetic Foot Care Reason Onset Date Comments Refill Request 08/01/2022 Reason Comments verbal order for home health Reason Onset Date Comments Refill Request 07/15/2022 Reason Onset Date Comments Refill Request 08/30/2022 Reason Onset Date Comments Refill Request 10/03/2022 Reason Comments [facility] Plan of Care Re certific ation Reason Comments home health requesting verbal order Reason Onset Date Comments Refill Request 12/02/2022 Reason Comments [facility], nursing verbal orders Reason Comments Meter quit working Reason Onset Date Comments Refill Request 01/24/2023 Reason Onset Date Comments Refill Request 01/31/2023 Reason Comments Forms from [employer] Reason Comments UTI Reason Comments Radiology US Specialty Diagnoses / Procedures Referred By Contac t Referred To Contact US IMAGING Diagnoses Dysuria Hematuria, unspecified type Right flank discomfort Procedures US KIDNEY/BLADDER US RETROPERITONEAL REAL TIME W/IMAGE COMPLETE Felicia Irwin MD [address] [place] [address] [place] [address] Referral ID Status Reason Start Date Expiration Date V isits Requested Visits Authorized [id number] Closed Auto-Generate d Referral 02/12/2023 03/13/2024 1 1 Reason Comments Insurance Authorization Reason Comments URI Patient didn't test- family had tested themselves and negative 2 weeks ago. Reason Comments Results Reason Comments ER F/U 03/01/2023 - cough, sobCurrently on a ATB Reason Onset Date Comments Refill Request 03/17/2023 INFORMATION SOURCE (unrecogn ized section and content) DATE CREATED AUTHOR AUTHOR'S ORGANIZ ATION 03/29/2023 [facility] FOR RECORDS PERTAINING TO PATIENTS WHO ARE OR HAVE BEEN ENROLLED IN A CHEMICAL DEPENDENCY/SUBSTANCEABUSE PROGRAM, SOME INFORMATION MAY BE OMITTED. This clinical summary was aggregated from multiple sources. Caution should be exercised in using it in the provision of clinical care. This summary normalizes information from multiple sources, and as a consequence, information in this document may materially change the coding, format and clinical context of patient data. In addition, data may be omitted in some cases. CLINICAL DECISIONS SHOULD BE BASED ON THE PRIMARY CLINICAL RECORDS. [employer] provides no warranty or guarantee of the accuracy or completeness of information in this document.
--- NOTE | 2023-04-26 12:57 | CT_ITS ---
STUDY: CT BRAIN WITHOUT CONTRAST REASON FOR EXAM: Female, 88 years old. fall, head trauma BEST SCAN POSSIBLE, PT UNABLE TO LAY FLAT, SEVERE KYPHOSIS, PT STATES HAS NOT LAID FLAT IN YEARS, pt had tripped over her sock and fell hitting the back of her head on the door. no loc. second fall in 2 weeks. R shoulder chronically dislocated. RADIATION DOSAGE (If Supplied By Facility): CTDIvol = ( ) mGy, DLP = ( ) mGycm TECHNIQUE: Transaxial CT imaging of the brain was performed without administration of intravenous contrast material. Individualized dose optimization techniques were used for this CT. Study is limited by beam hardening and motion artifact. COMPARISON: None. FINDINGS: Normal soft tissue structures. Normal calvarium. No visualized skull fracture or midline shift or large subdural hemorrhage. There is moderate cerebral atrophy with widening of the extra-axial spaces and ventricular dilatation. There are areas of decreased attenuation within the white matter tracts of the supratentorial brain, consistent with microvascular disease changes. Normal basal ganglia and thalami. Normal brainstem. Normal cerebellum. There are no findings of an acute ischemic infarction. Normal visualized paranasal sinuses. CT/Brain/Head without Contrast IMPRESSION: Chronic involutional changes of the brain. Electronically Signed: Bryce Brantley MD at 14:15 EST ,
--- NOTE | 2023-04-26 12:57 | CT_ITS ---
STUDY: CT LUMBAR SPINE WITHOUT CONTRAST REASON FOR EXAM: Female, 88 years old. back pain after fall RADIATION DOSAGE (If Supplied By Facility): CTDIvol = ( ) mGy, DLP = ( ) mGycm TECHNIQUE: The patient was scanned in a multi detector CT scanner. High resolution transaxial imaging was performed. Images were obtained from to . Sagittal and coronal images were reconstructed. Individualized dose optimization techniques were used for this CT. COMPARISON: CT of the thoracic spine dated April 26, 2023 FINDINGS: Normal lumbar lordosis. There is no substantial scoliosis. Small chip fractures with minimal displacement are seen in the left L1, L2, and L3 transverse processes. There is a healed fracture deformity of the right L3 transverse process versus prior surgical intervention with bone grafting and intervertebral healing. No acute fractures of the vertebral bodies are present. Spinal fusion rods and pedicle screws are present at L3, L4, L5. Moderate to severe multilevel degenerative changes are present. Mild to moderate central canal stenosis is present at L1-L2 and L2-L3. There is mild paraspinal muscular atrophy. CT/Spine Lumbar without Contrast IMPRESSION: 1. Small chip fractures with minimal displacement are seen in the left L1, L2, and L3 transverse processes. 2. Multilevel degenerative changes, as described above. Electronically Signed: Bryce Brantley MD at 14:23 EST ,
--- NOTE | 2023-04-26 12:57 | CT_ITS ---
STUDY: CT CERVICAL SPINE WITHOUT CONTRAST REASON FOR EXAM: Female, 88 years old. neck pain RADIATION DOSAGE (If Supplied By Facility): CTDIvol = ( ) mGy, DLP = ( ) mGycm TECHNIQUE: High resolution transaxial imaging was performed without contrast material. Sagittal and coronal images were reconstructed. Individualized dose optimization techniques were used for this CT. COMPARISON: None FINDINGS: Normal craniovertebral junction. There are degenerative changes of the anterior atlantoaxial articulation. Normal odontoid process. There is reversal of the normal cervical lordosis. The bony structures are demineralized. No visualized acute fracture or compression deformity. Multilevel degenerative changes are present. No demonstrated jumped facets. Normal visualized soft tissue structures. CT/Spine Cervical without Contras IMPRESSION: Multilevel degenerative changes, as described above. Electronically Signed: Bryce Brantley MD at 14:17 EST ,
--- NOTE | 2023-04-26 12:57 | CT_ITS ---
STUDY: CT THORACIC SPINE WITHOUT CONTRAST REASON FOR EXAM: Female, 88 years old. back pain RADIATION DOSAGE (If Supplied By Facility): CTDIvol = ( ) mGy, DLP = ( ) mGycm TECHNIQUE: The patient was scanned in a multi detector CT scanner. High resolution imaging was performed. Images were obtained from to . Sagittal and coronal images were reconstructed. Individualized dose optimization techniques were used for this CT. COMPARISON: CT of the chest dated March 01, 2023, FINDINGS: There is soft tissue expansion and replacement of the right humeral head and remodeling of the glenoid, unchanged from the March 01, 2023 study and is likely sequela of prior fracture deformity and severe secondary degeneration. The bony structures are significantly demineralized. There are no visualized acute fractures of the thoracic vertebral bodies or compression deformities. No acute fractures are seen in the posterior elements of the thoracic spine. The thoracic kyphosis is a significantly exaggerated. Multilevel degenerative changes are present. The soft tissue structures are unremarkable. Mild interstitial thickening and edema is present throughout both lungs. There are several healed right-sided rib fractures. CT/Spine Thoracic without Contras IMPRESSION: 1. Multilevel degenerative changes of the thoracic spine. Electronically Signed: Bryce Brantley MD at 14:33 EST ,
[2023-04-26 14:28] VITALS: RESP 16
[2023-04-26 14:41] LABS: Bedside Glucose 168 mg/dL (74-106)
[2023-04-26 15:47] VITALS: BP 159/74; PULSE 76; RESP 20; TEMP 36.7; O2SAT 97
== END 2023-04-26 16:14 | disposition home or self-care (01) ==
PROVIDERS: Emergency Provider Emergency Medicine; PCP Family Medicine; Visit Provider Emergency Medicine
DX: S32.019A Unspecified fracture of first lumbar vertebra, initial encounter for closed fracture (principal); S32.029A Unspecified fracture of second lumbar vertebra, initial encounter for closed fracture; S32.039A Unspecified fracture of third lumbar vertebra, initial encounter for closed fracture; I13.0 Hypertensive heart and chronic kidney disease with heart failure and stage 1 through stage 4 chronic kidney disease, or unspecified chronic kidney disease; I50.32 Chronic diastolic (congestive) heart failure; E11.22 Type 2 diabetes mellitus with diabetic chronic kidney disease; Z79.4 Long term (current) use of insulin; N18.30 Chronic kidney disease, stage 3 unspecified; M10.9 Gout, unspecified; Z79.82 Long term (current) use of aspirin; E03.9 Hypothyroidism, unspecified; Z79.899 Other long term (current) drug therapy; Z90.49 Acquired absence of other specified parts of digestive tract; W01.10XA Fall on same level from slipping, tripping and stumbling with subsequent striking against unspecified object, initial encounter
CPT/HCPCS: 70450; 72125; 72128; 72131; 82962; 99282; A4216

== ENCOUNTER → 2023-07-08 | Outpatient (CLI) | payer MEDICARE, SELFPAY ==
--- NOTE | 2023-07-08 13:03 | RAD_ITS ---
STUDY: X-RAY - LUMBAR SPINE REASON FOR EXAM: Female, 88 years old. Pain. TECHNIQUE: 3 view(s) of the lumbar spine were obtained. COMPARISON: None FINDINGS: Osteopenia. Reversal of the normal lordotic curve. Mild levoscoliosis. Relatively normal vertebral alignment. Diffuse moderate to marked lower thoracic to lumbosacral spondylosis. Posterior fusion from L3 to L5. Laminectomy defects at L3-L5. Diffuse moderate intervertebral disc space narrowing with osteophyte formation. Mild arthrosis of both sacroiliac joints. Vascular calcification. RAD/Lumbar Spine 2 or 3 Views IMPRESSION: Osteopenia with fusion from L3 to L5 with moderate to marked lower thoracic and lumbosacral spondylosis as described. Electronically Signed: Jadon Kaur MD at 15:32 EDT ,
--- NOTE | 2023-07-08 13:03 | RAD_ITS ---
STUDY: X-RAY - LEFT KNEE REASON FOR EXAM: Female, 88 years old. New pain. TECHNIQUE: 2 view(s) of the knee. COMPARISON: None. FINDINGS: Marked osteopenia. Large superior patellar spur. Severe tricompartmental arthrosis with near complete loss of articular cartilage, subchondral cyst formation, subchondral sclerosis and marked osteophyte formation. Multiple calcifications projected over the joint most likely representing multiple intra-articular osteochondral bodies. Joint effusion with vascular calcification and speckled calcification in the region of the distal quadriceps tendon. RAD/Knee 1 or 2 Views IMPRESSION: Osteopenia with moderate to marked tricompartmental arthrosis and multiple intra-articular osteochondral bodies. No acute finding. Electronically Signed: Jadon Kaur MD at 15:37 EDT ,
--- NOTE | 2023-07-08 13:03 | RAD_ITS ---
STUDY: X-RAY - LEFT SHOULDER REASON FOR EXAM: Female, 88 years old. Pain. TECHNIQUE: 2 view(s) of the shoulder. COMPARISON: None. FINDINGS: Marked osteopenia. Superior migration of the humeral head compatible with rotator cuff degeneration. Moderate arthrosis of the glenohumeral joint. Moderate arthrosis of the AC joint. Sclerosis and cystic changes of the humeral head. Normal soft tissues. Normal visualized pulmonary apex. RAD/Shoulder min 2 Views IMPRESSION: Osteopenia with superior migration of the humeral head compatible with rotator cuff degeneration. Moderate arthrosis of the glenohumeral and acromioclavicular joints. No acute abnormality or erosive changes. Electronically Signed: Jadon Kaur MD at 15:33 EDT ,
--- NOTE | 2023-07-08 13:04 | RAD_ITS ---
STUDY: X-RAY - RIGHT SHOULDER REASON FOR EXAM: Female, 88 years old. Shoulder pain. TECHNIQUE: 2 view(s) of the shoulder. COMPARISON: None. FINDINGS: Marked osteopenia. Anterior and inferior dislocation of the humerus in relation to the glenoid. Marked erosive changes of the proximal humerus with complete resorption of the humeral which may be secondary to postsurgical or posttraumatic changes or, less likely, focal erosion. Moderate arthrosis of the AC joint. Soft tissue swelling adjacent to the proximal humerus. Normal visualized pulmonary apex. RAD/Shoulder min 2 Views IMPRESSION: Osteopenia with anterior and inferior dislocation of the proximal humerus in relation to the glenoid. Complete erosion of the humeral head which may be secondary to postsurgical changes, posttraumatic changes or focal erosive changes. Moderate arthrosis of the AC joint. Diffuse soft tissue swelling. Electronically Signed: Jadon Kaur MD at 15:35 EDT ,
--- NOTE | 2023-07-08 13:04 | RAD_ITS ---
STUDY: X-RAY - RIGHT KNEE REASON FOR EXAM: Female, 88 years old. Right knee pain. TECHNIQUE: 2 view(s) of the knee. COMPARISON: None. FINDINGS: Marked osteopenia. Large superior patellar spur. Severe tricompartmental arthrosis with near complete loss of articular cartilage, subchondral cyst formation, subchondral sclerosis and marked osteophyte formation. Multiple calcifications projected over the joint most likely representing multiple intra-articular osteochondral bodies. Joint effusion with vascular calcification and speckled calcification in the region of the distal quadriceps tendon. RAD/Knee 1 or 2 Views IMPRESSION: Osteopenia with moderate to marked tricompartmental arthrosis and multiple intra-articular osteochondral bodies. No acute finding. Electronically Signed: Jadon Kaur MD at 15:38 EDT ,
[2023-07-08 14:32] LABS: Amphetamine Urine VISTA NEGATIVE (<1000 ng/mL); Barbiturate Urine VISTA NEGATIVE (< 200 ng/mL); Benzodiazepine Urine VISTA NEGATIVE (< 200 ng/mL); Cocaine Urine VISTA NEGATIVE (< 300 ng/mL); Ecstacy Urine VISTA NEGATIVE (< 500 ng/mL); Methadone Urine VISTA NEGATIVE (< 300 ng/mL); PCP Urine VISTA NEGATIVE (< 25 ng/mL); THC Urine VISTA NEGATIVE (< 50 ng/mL); Vista UDS pH Range 6
== END | disposition home or self-care (01) ==
LOC: LAB 12:43
PROVIDERS: PCP Family Medicine; Referring Provider Anesthesiology Pain Medicine; Visit Provider Anesthesiology Pain Medicine
DX: F11.20 Opioid dependence, uncomplicated (principal); M96.1 Postlaminectomy syndrome, not elsewhere classified; M25.511 Pain in right shoulder; M25.512 Pain in left shoulder; M25.561 Pain in right knee; M25.562 Pain in left knee
CPT/HCPCS: 72100; 73030; 73560; 80307

== ENCOUNTER → 2024-01-15 | Outpatient (CLI) | payer MEDICARE, SELFPAY ==
[2024-01-15 12:04] LABS: Absolute Lymphocyte Count 1.02 X10^3/uL (0.83-4.51); Absolute Neutrophil Count 4.1 X10^3/uL (2.0-7.7); Basophil# 0.05 X10^3/uL; Basophil% 0.8 % (0-1); Eosinophil# 0.65 X10^3/uL; Hematocrit 30.3 % (37-47); Hemoglobin 9.7 g/dL (12.0-15.0); Lymphocyte # 1.02 X10^3/ul (0.83-4.51); Lymphocyte % 15.7 % (19-41); Mean Corpuscular Hgb 31.1 pg (27.0-32.0); Mean Corpuscular Volume 97.1 fL (81-99); Mean Platelet Vol. 10.1 fl (6.2-12.0); Monocyte# 0.64 X10^3/uL; Monocyte% 9.9 % (0-10); NRBC Flagged by Analyzer 0 % (0-5); Neutrophil # 4.08 X10^3/uL (2.7-7.7); Platelet Count 240 K/mm3 (150-450); RBC Distribution Width CV 13.3 % (11.6-14.6); RBC Distribution Width SD 48.1 fl (35.1-43.9); Red Blood Count 3.12 M/mm3 (4.2-5.4); White Blood Count 6.5 K/mm3 (4.4-11.0)
[2024-01-15 12:53] LABS: Anion Gap 4 (5-15); BUN 40 mg/dL (7-18); Calcium,Total 9.4 mg/dL (8.5-10.1); Chloride 105 mmol/L (98-107); Creatinine, Serum 1.29 mg/dL (0.55-1.02); EST Glomerular Filtration Rate 41 mL/min (>60); Est Glom Filt Rate - Afr Amer 50 mL/min (>60); Glucose 93 mg/dL (74-106); Potassium 3.8 mmol/L (3.5-5.1); Sodium Level 140 mmol/L (136-145)
== END | disposition home or self-care (01) ==
LOC: LAB 11:26
PROVIDERS: PCP Family Medicine; Referring Provider Internal Medicine Cardiovascular Disease; Visit Provider Internal Medicine Cardiovascular Disease
DX: I10 Essential (primary) hypertension (principal)
CPT/HCPCS: 36415; 80048; 84443; 85025